=== PATIENT | male | born 1960 | race Caucasian/White ===

== ENCOUNTER 2022-10-29 15:08 | Outpatient (OUT) | payer OTHER, SELFPAY ==
[2022-10-29 16:11] LABS: Anion Gap 10.8; BUN Creatinine Ratio 10.9; Calcium 8.9 mg/dL (8.5-10.1); Carbon Dioxide 29.8 mmol/L (21.0-32.0); Chloride 103 mmol/L (98-107); Estimated GFR (African America >60 (>=60); Estimated GFR (Non-African Ame >60 (>=60); Glucose 100 mg/dL (74-106); Potassium 3.6 mmol/L (3.5-5.1); Sodium 140 mmol/L (136-145)
== END 2022-10-29 15:09 | disposition home or self-care (01) ==
PROVIDERS: PCP Internal Medicine; Visit Provider Nurse Practitioner
DX: I50.23 Acute on chronic systolic (congestive) heart failure (principal)
CPT/HCPCS: 36415; 80048

== ENCOUNTER 2022-11-21 13:51 | Outpatient (OUT) | payer OTHER, SELFPAY ==
--- NOTE | 2022-11-21 14:29 | CA_ITS ---
Patient: DOMO PIÑA Exam Date: 11/21/2022 : 1960 Gender:M Ordering : YAEL OSORIO Admission #: [id number] Family : Order #: [id number] CLICK HERE TO VIEW EXAM ECHOCARDIOGRAM REPORT PROCEDURE: CA ECHO DOPPLER COMPLETE INDICATIONS: I50.23 COMPARISON: None. DESCRIPTION: COMPLETE ECHOCARDIOGRAM Real-time transthoracic echocardiography with 2D, M-mode, spectral and color flow Doppler performed. QUALITY: Technical quality was good. LEFT VENTRICLE: Normal chamber size. Normal left ventricular wall thickness. There is global hypokinesis. Systolic function is mildly to moderately reduced. LV EF: Mildly to moderately reduced left ventricular ejection fraction, (40%). DIASTOLIC: Grade I diastolic dysfunction. ATRIAL SEPTUM: Visually appears intact. LEFT ATRIUM: Normal chamber size. RIGHT ATRIUM: Normal chamber size. RIGHT VENTRICLE: Normal chamber size. Normal right ventricular systolic function. TRICUSPID VALVE: Normal mobility and thickness. No stenosis with trivial regurgitation. Unable to assess right-sided pressures due to lack of measurable tricuspid regurgitation. MITRAL VALVE: Normal mobility and thickness. No evidence of mitral valve stenosis. There is no mitral annular calcification. Mild mitral regurgitation. AORTIC VALVE: Normal trileaflet appearance. Thickened aortic valve. Normal leaflet mobility. No evidence of aortic valve stenosis. No aortic regurgitation. AORTIC ROOT: Normal diameter and appearance. PULMONIC VALVE: Normal thickness and mobility. No stenosis. No regurgitation. PERICARDIUM: No evidence of pericardial effusion. IVC: Collapses with inspirations. PLEURA: CONCLUSION: 1. Left ventricular systolic function is mildly to moderately reduced with global hypokinesis. LVEF is 40%. 2. Mild diastolic dysfunction. 3. Normal right ventricular size and systolic function. 4. Mild mitral regurgitation. 5. No pericardial effusion. 6. Unable to assess right-sided pressures due to lack of measurable tricuspid regurgitation. Adult Echocardiography Procedure Report Left Ventricle LVEDD (3.7 - 5.6 cm): 4.43 cm LVESD (2.2 - 4.0 cm): 3.61 cm LVIVS thickness (0.6 - 1.2 cm): 0.92 cm LVPW thickness (0.5 - 1.0 cm): 0.84 cm e': 0.09 m/s E - e': 4.85 LVOT Max Gradient: 2.20 mm[Hg] LVOT Area (cm2): 0.74 m/s Peak Velocity (LVOT): 0.74 m/s LVOT Diameter 2.22 cm Left Atrium LA Volume Index (2D A2C): 21.74 ml/m2 Left Atrium Systolic Dimension: 2.61 cm Mitral Valve MV E to A Ratio: 0.63 Mitral Valve A-Wave Peak Velocity: 0.69 m/s Mitral Valve E-Wave Peak Velocity: 0.44 m/s Right Ventricle Aorta AO Root Diam: 3.15 cm Ascending Ao Diam: 2.74 cm Aortic Valve AoV Area (Peak Ildefonso): 2.32 cm2, 2.32 cm2 Peak Velocity(Antegrade Flow): 1.24 m/s Peak Gradient(Antegrade Flow): 6.15 mm[Hg] Mean Velocity(Antegrade Flow): 0.89 m/s Mean Gradient(Antegrade Flow): 3.58 mm[Hg] Velocity Time Integral: 23.67 cm Tricuspid Valve Pulmonic Valve Peak Velocity: 0.77 m/s Peak Gradient: 2.39 mm[Hg] Right Atrium Right Atrium Systolic Pressure: 20.95 ml, 20.95 ml Dictated by: Tomasz Watkins M.D. on 11/21/2022 at 18:42 Approved by: Tomasz Watkins M.D. on 11/21/2022 at 18:45
== END 2022-11-21 13:52 | disposition home or self-care (01) ==
LOC: CARD 13:51
PROVIDERS: PCP Internal Medicine; Visit Provider Internal Medicine Cardiovascular Disease
DX: I50.23 Acute on chronic systolic (congestive) heart failure (principal); I34.0 Nonrheumatic mitral (valve) insufficiency
CPT/HCPCS: 93306

== ENCOUNTER 2023-03-02 14:41 | Outpatient (OUT) | payer OTHER, SELFPAY ==
[2023-03-02 15:42] LABS: Anion Gap 10.8; BUN Creatinine Ratio 19.8; Calcium 9.1 mg/dL (8.5-10.1); Carbon Dioxide 29.3 mmol/L (21.0-32.0); Chloride 103 mmol/L (98-107); Estimated GFR (African America >60 (>=60); Estimated GFR (Non-African Ame >60 (>=60); Glucose 113 mg/dL (74-106); Potassium 4.1 mmol/L (3.5-5.1); Sodium 139 mmol/L (136-145)
== END 2023-03-02 14:42 | disposition home or self-care (01) ==
LOC: LAB 14:42
PROVIDERS: PCP Internal Medicine; Visit Provider Internal Medicine Cardiovascular Disease
DX: I50.22 Chronic systolic (congestive) heart failure (principal)
CPT/HCPCS: 36415; 80048

== ENCOUNTER 2023-08-11 13:57 | Outpatient (OUT) | payer OTHER, SELFPAY ==
--- OUTSIDE RECORDS SUMMARY | 2023-08-11 14:06 | XMS_ITS | CCD ---
Author Organization [facility] Care Team Providers Care Sales And Production Manager Name Role Phone VIJAY MCKEON Primary Care Physician [phone] Vijay Mckeon Unavailable Sonny Pate Unavailable DR IVJAY MCKEON Primary Care Unavailable ALGHOYAEL HOLLINS Admitting Unavailable ALGHOTHMICHELLE, YAEL Attending Unavailable ALGHOTHMICHELLE, YAEL Consulting Unavailable MIKE, DR BARRERA Primary Care Unavailable BALL, DR BARRERA Admitting Unavailable BALL, DR BARRERA Attending Unavailable BALL, DR BARRERA Consulting Unavailable BALL, DR BARRERA Primary Care Unavailable BALL, DR BARRERA Admitting Unavailable BALL, DR BARRERA Attending Unavailable BALL, DR BARRERA Consulting Unavailable WEST, DR ISABELLE Mendoza Consulting Unavailable BALL, DR BARRERA Consulting Unavailable BALL, DR BARRERA Primary Care Unavailable BALL, DR BARRERA Admitting Unavailable BALL, DR BARRERA Attending Unavailable NILL, Bill Hua Attending Unavailable NILL, Bill Hua Referring Unavailable NILL, Bill Hua Admitting Unavailable NILL, Bill Hua Referring Unavailable NILL, Bill Hua Admitting Unavailable NILL, Bill Hua Attending Unavailable GINODEBORAH ORTEGA Attending Unavailable ALGHOTHANI, YAEL Attending Unavailable ALGHOTHANI, YAEL Attending Unavailable ALGHOTHANI, YAEL Attending Unavailable Allergies Allergy Classification Reported Allergen(s) Allergy Type Date of Onset Reaction(s) Facility (1 source) No Known Medication Allergies; Translations: [No Known Medication Allergies] Propensity to adverse reactions (disorder) [facility] Repository (1 source) patient allergy list reviewed by nurse or physicia Propensity to adverse reactions 9 Comment:Done devsisters Other (1 source) Lisinopril; Translations: [LISINOPRIL] Drug Allergy 3 [facility] Repository Medications Current Medications Medication Drug Class(es) Dates Sig (Normalized) Sig (Original) aspirin 81 mg delayed release oral tablet (9 sources) Platelet Aggregation Inhibitor, Nonsteroidal Anti-inflammatory Drug Start: 03-30-2022 Aspirin 81 81 MG 1 Orally Once a day Mar, Active atorvastatin 40 mg oral tablet (11 sources) HMG-CoA Reductase Inhibitor Start: 04-18-2022 take 1 tablet by mouth once daily atorvastatin 40 mg Tab 40 mg = 1 tab(s), Oral, Daily, # 30 tab(s), Refills(s) 0, High cholesterol Start Date: 04/18/22 Status: Ordered Atorvastatin Abdi cium 10 MG 1 Orally Once a day Active azithromycin 250 mg oral tablet (1 source) Macrolide Antimicrobial Start: 04-10-2023 Azithromycin 250 MG as directed Orally daily for 5 days Mar, Active carvedilol 3.125 mg oral tablet (2 sources) alpha-Adrenergic Jeff, beta-Adrenergic Jeff Start: 04-18-2022 take 1 tablet by mouth twice daily carvedilol 3.125 mg Tab 3.125 mg = 1 tab(s), Oral, BID, # 60 tab(s), Refills(s) 0, High blood pressure Start Date: 04/18/22 Status: Ordered ipratropium bromide 0.042 mg/actuat metered dose nasal spray (1 source) Anticholinergic Ipratropium Brave 0.06 % instill 2 (TWO) sprays IN EACH NOSTRIL TWICE DAILY - THREE TIMES DAILY for 30 Active loratadine 10 mg oral tablet (3 sources) Start: 03-25-2022 take 1 tablet by mouth once daily loratadine 10 mg Tab 10 mg = 1 tab(s), Oral, Daily, Refills(s) 0, Allergy symptoms Start Date: 03/25/22 Status: Ordered 24 hr metoprolol succinate 25 mg extended release oral tablet (9 sources) beta-Adrenergic Jeff Start: 04-10-2022 take 1 tablet by mouth every twenty-four hours Metoprolol Succinate ER 25 MG 1 tablet Orally Once a day for 30 day(s) Mar, Active Completed/Discontinued Medications Medication Drug Class(es) Dates Sig (Normalized) Sig (Original) cefTRIAXone (9 sources) Cephalosporin Antibacterial Start: 07-29-2017 Rocephin 500 mg July, 1000 mg Problems Active Problems Problem Classification Problem Date Documented Da te Episodic/Chronic Acute bronchitis (2 sources) Acute bronchitis; Translations: [Acute bronchitis due to other specified organisms] Episodic Congestive heart failure; nonhypertensive (14 sources) Unspecified systolic (congestive) heart failure; Translations: [Heart failure, unspecified] Onset: 04-10-2022 Chronic Coronary atherosclerosis and other heart disease (10 sources) Coronary arteriosclerosis; Translations: [Atherosclerotic heart disease of [place] coronary artery without angina pectoris] Chronic Diabetes mellitus without complication (4 sources) Impaired fasting glycemia; Translations: [Impaired fasting glucose] 03-19-2022 Episodic Disorders of lipid metabolism (10 sources) Hypercholesterolemia; Translations: [Pure hypercholesterolemia, unspecified] Chronic Diverticulosis and diverticulitis (1 source) Diverticula of intestine; Translations: [Diverticulosis of large intestine without perforation or abscess without bleeding] Onset: 04-18-2022 Chronic Essential hypertension (2 sources) Essential (primary) hypertension; Translations: [Essential (primary) hypertension] Onset: 05-29-2023 Chronic Heart valve disorders (1 source) Nonrheumatic mitral (valve) insufficiency; Translations: [NONRHEUMATIC MITRAL INSUFFICIENCY] Onset: 04-12-2022 Chronic Osteoarthritis (1 source) Localized, primary osteoarthritis of the shoulder region; Translations: [Primary osteoarthritis, unspecified shoulder] Onset: 06-04-2018 Chronic Other gastrointestinal disorders (2 sources) Abnormal feces; Translations: [Other fecal abnormalities] Onset: 03-25-2022 Episodic Other upper respiratory disease (4 sources) Vasomotor rhinitis; Translations: [Vasomotor rhinitis] 03-19-2022 Chronic Peripheral and visceral atherosclerosis (2 sources) Atherosclerosis of other arteries; Translations: [Atherosclerosis of other arteries] Onset: 03-04-2023 Chronic Residual codes; unclassified (1 source) Family history of ischemic heart disease and other diseases of the circulatory system Episodic Retinal detachments; defects; vascular occlusion; and retinopathy (20 sources) Branch retinal vein occlusion with macular edema; Translations: [Tributary (branch) retinal vein occlusion, left eye, with macular edema] Onset: 04-07-2022 Chronic Substance-related disorders (14 sources) Nicotine dependence; Translations: [Nicotine dependence, cigarettes, uncomplicated] 03-19-2022 Chronic Viral infection (1 source) Disease caused by 2019-nCoV; Translations: [COVID-19] Past or Other Problems Problem Classification Problem Date Documented Da te Episodic/Chronic Bacterial infection; unspecified site (1 source) Bacterial infectious disease; Translations: [Bacterial infection, unspecified, in conditions classified elsewhere and of unspecified site] Onset: 04-24-2017 Episodic Cardiac dysrhythmias (12 sources) Sinus tachycardia; Translations: [Tachycardia, unspecified] Onset: 03-04-2023 Episodic Other screening for suspected conditions (not mental disorders or infectious disease) (4 sources) Stool DNA-based colorectal cancer screening positive; Translations: [Encounter for screening for malignant neoplasm of prostate] Onset: 02-04-2022 03-19-2022 Episodic Other upper respiratory infections (1 source) Acute maxillary sinusitis; Translations: [Acute maxillary sinusitis, unspecified] Onset: 04-24-2017 Episodic Residual codes; unclassified (2 sources) Tobacco user; Translations: [Nondependent tobacco use disorder] Onset: 02-06-2015 Episodic Unclassified (1 source) Exposure to 2019 novel coronavirus; Translations: [Contact with and (suspected) exposure to COVID19] Results Test Name Value Interpretation Reference Range Facility Office Visiton 05-29-2023 Follow-up visit [id number] Domo Piña 1960 M Date Provider Department Center 05/29/2023 Antoine8-YAEL ANDERSON SHOAIB Metcalf Family History Problem Relation Age of Onset Heart attack Father Coronary artery disease Father Other Father Family Status - Relation Status Age at Father Level of Service:20606 MT OFFICE/OUTPATIENT ESTABLISHED LOW MDM 20 MIN Normal [facility] Provider Letteron 03-27-2023 Provider Letter March 27, 2023 [place] [address] : 1960 Dear Domo, We have been trying to reach you with no success. It is important that you return our call regarding need for colonoscopy upon receiving this letter. Also, at the time of your call, please provide us with your current information. Thank you for your prompt attention to this matter. Sincerely, Dr. Bill Courtney MD General Surgery [facility] Provider Letter March 27, 2023 DOM[place] [place] [address] : 1960 Dear Domo, We have been trying to reach you with no success. It is important that you return our call upon receiving this letter. Also, at the time of your call, please provide us with your current information. Thank you for your prompt attention to this matter. Sincerely, Dr. Bill Courtney MD General Surgery [facility] Reminderson 03-27-2023 Reminders - From: Daisy Gutierrez LPN To: [facility] - Clinical; Sent: 04/21/2022 08:22:58 EST Show up: 03/18/2023 07:00:00 EST Subject: colonoscopy recall Due Date/Time: 04/18/2023 07:00:00 EST Reminder/Recall Patient is due for colonoscopy 04/18/2023 due to incomplete colonoscopy completed 04/18/2022 due to sharp bend of colon. Mailbox is full. Will call again at later time. Mailbox is full. Will call again at later time. Letter mailed. [facility] Office Visiton 03-04-2023 Follow-up visit [id number] Domo Piña 1960 M Date Provider Department Center 03/04/2023 166-DEBORAH CHRISTIAN Family History Problem Relation Age of Onset Heart attack Father Coronary artery disease Father Other Father Family Status - Relation Status Age at Father Level of Service:41073 MT OFFICE/OUTPATIENT ESTABLISHED MOD MDM 30-39 MIN Reason for Visit and Comments: Congestive Heart Failure [127] Normal [facility] Office Visiton 02-02-2023 Follow-up visit [id number] oDmo Piña 1960 M Date Provider Department Center 02/02/2023 3848-YAEL ANDERSON Family History Problem Relation Age of Onset Heart attack Father Coronary artery disease Father Other Father Family Status - Relation Status Age at Father Level of Service:48480 MT OFFICE/OUTPATIENT ESTABLISHED MOD MDM 30-39 MIN Normal [facility] Office Visiton 10-31-2022 Follow-up visit [id number] Domo Piña 1960 Date Provider Department Center 10/31/2022 3848-YAEL ANDERSON [facility]ARD [facility] Family History Problem Relation Age of Onset Heart attack Father Coronary artery disease Father Other Father Family Status - Relation Status Age at Father Level of Service:45432 MT OFFICE/OUTPATIENT ESTABLISHED LOW MDM 20-29 MIN Normal [facility] Orders Onlyon 10-31-2022 Orders Only [id number] Domo Piña Sabina 1960 M Date Provider Department Center 10/31/2022 Karina-LONNIE [place] [facility]ARD [facility] Family History Problem Relation Age of Onset Heart attack Father Coronary artery disease Father Other Father Family Status - Relation Status Age at Father Normal [facility] Orders Onlyon 07-22-2022 Orders Only [id number] Domo Piña Sabina 1960 Date Provider Department Center 07/22/2022 Alfred-ROMELIA LING [facility] CARD [facility]. Family History Problem Relation Age of Onset Heart attack Father Coronary artery disease Father Other Father Family Status - Relation Status Age at Father Normal [facility] Postoperative Documentson Postoperative Documents [id number]. 00CD:127 Normal [facility] IntraOperative Documentson 0 04-23-2022 IntraOperative Documents [id number]. 00CD:127 Normal [facility] CBC AUTO DIFFon 04-22-2022 BASO # 0.1 103/ul Normal 0.0-0.1 [facility] Comment on above: Performed By: #### C BC #### [facility] [address] [place] [address] Dr. Luisana Ramachandran Basophils/100 WBC (Bld) 1.0 % Normal 0.2-2.0 [facility] Comment on above: Performed By: #### C BC #### [facility] [address] [place] [address] Dr. Luisana Ramachandran EO # 0.3 103/ul Normal 0.0-0.7 [facility] Comment on above: Performed By: #### C BC #### [facility] [address] [place] [address] Dr. Luisana Ramachandran Eosinophils/100 WBC (Bld) 3.0 % Normal 0.9-7.0 [facility] Comment on above: Performed By: #### C BC #### [facility] [address] [place] [address] Dr. Luisana Ramachandran Erythrocyte distribution width (RBC) [Ratio] 13.1 % Normal 11.0-15.0 [facility] Comment on above: Performed By: #### C BC #### [facility] [address] [place] [address] Dr. Luisana Ramachandran Hematocrit (Bld) [Volume fraction] 43.7 % Normal 42.0-54.0 [facility] Comment on above: Performed By: #### C BC #### [facility] [address] [place] [address] Dr. Luisana Ramachandran Hemoglobin (Bld) [Mass/Vol] 14.5 g/dL Normal 14.0-18.0 [facility] Comment on above: Performed By: #### C BC #### [facility] [address] [place] [address] Dr. Luisana Ramachandran IG # 0.02 10e3/ul Normal 0.00-0.03 [facility] Comment on above: Performed By: #### C BC #### [facility] [address] [place] [address] Dr. Luisana Ramachandran IG % 0.2 % Normal 0.0-0.5 [facility] Comment on above: Performed By: #### C BC #### [facility] [address] [place] [address] Dr. Luisana Ramachandran LYMPH # 2.9 103/ul Normal 1.2-3.8 [facility] Comment on above: Performed By: #### C BC #### [facility] [address] [place] [address] Dr. Luisana Ramachandran Lymphocytes/100 WBC (Bld) 29.8 % Normal 20.5-60.0 [facility] Comment on above: Performed By: #### C BC #### [facility] [address] [place] [address] Dr. Luisana Ramachandran MANUAL DIFF REQ NO Normal [facility] Comment on above: Performed By: #### C BC #### [facility] [address] [place] [address] Dr. Luisana Ramachandran MCH (RBC) [Entitic mass] 29.6 pg Normal 25.9-34.0 [facility] Comment on above: Performed By: #### C BC #### [facility] [address] [place] [address] Dr. Luisana Ramachandran MCHC (RBC) [Mass/Vol] 33.2 g/dL Normal 29.9-35.2 [facility] Comment on above: Performed By: #### C BC #### [facility] [address] [place] [address] Dr. Luisana Ramachandran MCV (RBC) [Entitic vol] 89.2 fL Normal 80.0-94.0 [facility] Comment on above: Performed By: #### C BC #### [facility] [address] [place] [address] Dr. Luisana Ramachandran MONO # 1.1 103/ul Critically high 0.3-0.8 [facility] Comment on above: Performed By: #### C BC #### [facility] [address] [place] [address] Dr. Luisana Ramachandran Monocytes/100 WBC (Bld) 10.9 % Normal 1.7-12.0 [facility] Comment on above: Performed By: #### C BC #### [facility] [address] [place] [address] Dr. Luisana Ramachandran NEUT # 5.4 103/ul Normal 1.4-6.5 [facility] Comment on above: Performed By: #### C BC #### [facility] [address] [place] [address] Dr. Luisana Ramachandran Neutrophils/100 WBC (Bld) 55.1 % Normal 43.0-75.0 [facility] Comment on above: Performed By: #### C BC #### [facility] [address] [address] [address] Luisana Ramachandran Platelet mean volume (Bld) [Entitic vol] 10.8 fL Normal 9.5-13.5 [facility] Comment on above: Performed By: #### C BC #### [facility] [address] [place] [address] Dr. Luisana Ramachandran PLT 240 103/ul Normal 150-450 [facility] Comment on above: Performed By: #### C BC #### [facility] [address] [place] [address] Dr. Luisana Rmaachandran RBC 4.90 106/ul Normal 4.70-6.10 [facility] Comment on above: Performed By: #### C BC #### [facility] [address] [place] [address] Dr. Luisana Ramachandran WBC 9.8 103/ul Normal 4.0-11.0 [facility] Comment on above: Performed By: #### C BC #### [facility] [address] [place] [address] Dr. Luisana Ramachandran PROF CHEM 8 (BAS METB)on Anion gap [Moles/Vol] 11.1 mmol/L Normal [facility] Comment on above: Performed By: #### B MP #### [facility] [address] [place] [address] Dr. Luisana Ramachandran Calcium [Mass/Vol] 9.3 mg/dL Normal 8.5-10.1 [facility] Comment on above: Performed By: #### B MP #### [facility] [address] [place] [address] Dr. Luisana Ramachandran Chloride [Moles/Vol] 100 mmol/L Normal 98-107 [facility] Comment on above: Performed By: #### B MP #### [facility] [address] [place] [address] Dr. Luisana Ramachandran CO2 [Moles/Vol] 31.9 mmol/L Normal 21.0-32.0 [facility] Comment on above: Performed By: #### B MP #### [facility] [address] [place] [address] Dr. Luisana Ramachandran Creatinine [Mass/Vol] 0.80 mg/dL Normal 0.70-1.30 [facility] Comment on above: Performed By: #### B MP #### [facility] [address] [address] [address] Luisana Ramachandran EGFR-AF GREEK >60 Normal >=60 [facility] Comment on above: Performed By: #### B MP #### [facility] [address] [address] [address] Luisana Ramachandran EGFR-NON AF GREEK >60 Normal >=60 [facility] Comment on above: Performed By: #### B MP #### [facility] [address] [address] [address] Luisana Ramachandran Glucose [Mass/Vol] 106 mg/dL Normal 74-106 [facility] Comment on above: Performed By: #### B MP #### [facility] [address] [place] [address] Dr. Luisana Ramachandran Potassium [Moles/Vol] 4.0 mmol/L Normal 3.5-5.1 [facility] Comment on above: Performed By: #### B MP #### [facility] [address] [place] [address] Dr. Luisana Ramachandran Sodium [Moles/Vol] 139 mmol/L Normal 136-145 [facility] Comment on above: Performed By: #### B MP #### [facility] [address] [address] [address] Luisana Ramachandran Urea nitrogen [Mass/Vol] 11.0 mg/dL Normal 7.0-18.0 [facility] Comment on above: Performed By: #### B MP #### [facility] [address] [place] [address] Dr. Luisana Ramachandran Urea nitrogen/Creatinine [Mass ratio] 13.8 mg/mg Normal [facility] Comment on above: Performed By: #### B MP #### [facility] [address] [place] [address] Dr. Luisana Ramachandran Coding Summary.on 04-21-2022 Coding Summary. CD:[id number] Gh 0bWw+PGhlYWQ+YT2IMKQqI 31ubRVmgV7ZB5sGXU3LWLZ OKDVOVM6YBW2exZJ2FMrjJ 2VybiAv EgmojSCsKC08JRz5TWY7nR mlXYdupZ4odFWlS5v6GlUu DY41vS53HIiiKMHyPdV1Xx ZpbjsgbWFy V2hmElOovEZgDtq+PHRhYm xlIHdpZHRoPScxMDAlJyBz lUjyOL4nRs4uTEDgXXZnsI xhcHNlOiBj v9txGBXzLBchPZ4saUcaP8 GnaGS1IIByl5c6Fh85hHA+ KUCgPNM9pIcoOQxtq502Cy Vps6ciBTX5 jMOkDTqaIQX8X73gd3F3VH DeENYsEEO0zZX8yY3dwHmb wgnnR3OjyKGhCaQ3IIR1tB VakM7ytJhi azbfbA1bZta+W81IHP8IYI SIJH9GDxz4Z6FaYkmepCN+ FG59SUYqZF37jMAcqXYqm2 mypHn3VjTb RBBmLNA5jUogDZdae0GxUZ QsG01jyVXgh9H5VGZcmSyt sITzBmCsiIE5dU6hURiefi frj9bmhwxv Qyrni8tpov97nI28A25hMI jjTBWcXCN2RLTkDJSixKhz po4uwZ0oLk5+GWeut0iyn2 zjoFo6FuPp JIGmxxNggPxqNKC8v9SpPx 43I8HhaRnuf5ZuDex6vc20 pFQso2I9jKG7TXozSQBwwM 3nFGcjSzY3 HPGkUxHurF36tESbTMkhRf 5mqOkunQaqIT9zNSCjtuwo AYJztA3iWXSpzKMtxPqzPT 4wNTBpbjtm i354GbTqYLZ3BRQtfKZpO3 OnbN1fJqNwAWRpMLUeR7Cg gTWxGLeaZ609XOntHcR1OX YkhbNbY9Qz NQKksDdcAfO5z1S7Kw2Zr3 YxciyqPMM1WCbxUWIgHfMp NeKsLzP6B6VtCiq8QCWqeM opML3mN5Fy YQTuryiyttblqUA0MWLeYD ZodB95uFNvWAgxBz3om8P2 q599SYQoOAIkyN10Fu6miL ogMTBwdCBU dS8fxhvqj5hpndkgSyJrPB WtPCy5OWa8AQIarShpOeWt BDI6OwY1SOC9bKIguJ0geH rlvjejwO5h Oyc+D45riG1zDRC1PPB2gj dcJRMdhmRtYP00HG66F2Fq PjwvdGFibGU+PGRpdiBzdH hqFM0tAyVh b5uai1XdAMlwB8BbQLLjIY exGnw6PFQkKBR0dER9gM0t NMWyOKlyn8P2mIK5K4Vkyr Xndo4lg6dg EZDoBNpyF76daAQry2N1UC HyvVC0QIHavAjqRsZcuV94 Oyc+UNOwlKmja3XwCdsje4 nsb7pqsTt5 VfGoUJMjnsBoqXrwJXV6v5 VxFl43L61tFWvjPIDcGTKb RLHcKCKyfZccnt1ldG4iAa 8+PGNvbCB3 iKA0lK9pHLXdCvK6IEmzX0 78DsAsrQOvIhtfr1cgg0jn iGu6XmBjLKClozIvbMshZT H5n6TjRg98 W45zFIbcPBPkTCKsVGUwHM VugFoxsy0weT4mYo4+PC9j e9mgej06oF04rIA+PHRkIH T2gRpiZDcy IHJdkW6nGCovWpS4OZRlDy PzbK49dMPgDYrsNz4lwSpz fIvuUB3pUIOgekuez330Jo Nbn4jdTTDl zCMtIBgoXAK3S88xu4I1CI RnONYtVHI1kPG9nK7bhXmp bjogbGVmdDsgdmVydGljYW wcRLicI920 IHRvcDsnPlBhdGllbnQgTm NmIEz9F4EgBew5JSNacMlk DO7fdTUaLGqpNv5piUqooB orPS6yUGIl egkit530MgLtj3fdISWkvD XuAPxtBRQ8W04tz6B9IYTi IWRyLVW5iZE5zO4zzQftnn ogbGVmdDsg lvHxyCycLOhiCBgmG975KM RvcDsnPkJpcnRoIERhdGU6 LO65YK66eIQqa7D1oYH8J5 BhZGRpbmct zpasdAX2XSBiLSTeqH01Zr 4qxLkdNi4mGQCfGPM3TMQa rJNuO1CcrH0zXfXiIOSeFT JkP3BfuCXi OVhwE383UQdgCmB5OBKymt HqY7PeJBOakWueSyP9f6J7 Ec4NM6Q3TU74AY79mMBcw8 Y4rLX2H9Bd OCDppmtmqttghFH0CAJwHZ RnoS21Gx4kzQlpTp3aSYXq HIR3CBFdiUOkV3OpkR7kCj AjMDAwMDAw I1ByjBFgNUdnF437YTekWd X6JPCbblHaN1SbWHSniOgm RwT0n4I4Fo8XNRn6MU50HE 21eWYdm1D1 cIN6L9TdSDPgoeherbhjrA X6XTBmASSboF43Se3rpIif Et7lVHDbKBK4MXEeiDMbL9 SycQ5nBjFe HNScILBqQ7XtpNQaWAwcN7 77IXcwKzL5VXGhblKyG0Tx KZUmuTsyMvZ1n6T9Pw3WIZ IbGM76GMS0 jVV4HP68ZW64Q3BaQdqouO FibGU+PHRhYmxlIHdpZHRo SLnrJSLmMfXitPwrZN1xFs 9yZGVyLWNv pPqnmGUcIgDcj7huBCBsXE jeQJ8dkFwmH6FrvVH5ETEd w3d5Pi66Y89vJ4SosYY+PG BaxTZ4tBO5 aU6dTwWtGxK8GMpvW807Dz XxaABaNzlhg5mha7ocoAu7 WtD7GWKhflAvkSbrFFK1d6 ZfDu76P92p IHdpZHRoPSIxNSUiIHZhbG dfdz0jpX9yJr0+PGNvbCB3 qCI2tC4aXcVkVwA3VPgpF0 49InRvcCIv Ltpqr5ctd1cbiMp7TrTwTZ UvyoDrgTmoIPL8w4EdJw92 C4YdzWbwc7GhVgo9wa04yV Yzi2E2vMA6 U8LzFPRrpcjwhZPecPtrSN 8hJXHnbuuwRTJqdC9lLQOx V4w4ZrByVjT4YVdqY1Kxis C4GUOffBZh TQuxLGS4B90km6J7MHUxPY IpIUG1jSI3xK8udKeofqie bGVmdDsgdmVydGljYWwtYW dwN510YWSc tXduMFEfrN0tNKGlsLWpbA joYN9uQFJqarzeQiTPFGHZ TwALGkbqHq4MEULUKFk3E9 EkNxp3TWWu bUitLV0rsSHzRAngJc9hvY qwyModVJ1jZTFglpygYIUc vD3aVPFaoDLxiUeqPC3gFX Nzgyefl523 PwFlMFL8IBQeoSPgA4EdzS 1xTcExBDNmWKTtT2CanQDs FBvgJ355FKryFtY1EQVaaq ZkI5KdUTYt nSyxBtI5t0S9Xn7hVV3cMI 6cKXRjJE48BV31zVVmp5Q3 pIB9W9ZyJRFgojqrqbeabV D8FUNtZUPb qP26sBBbDBfnCt0gr2C4e3 52XXGtTOSsrG67Bx4kvNdz JQIbfATMuO2sunjiy4rqkm ogIzAwMDAw RPf0MXm3OYVaeYjdKpXyME G1TnF6ZJE1sTNwwM1kxVkc woupuD9xFkx+NjMgWWVhcn R6N3ZpUnd0 CQQrcEuvBH9pqKHiDXpyOw 0ryWgowEbmYM3bJAPhrmfe IGVlmV8wNQAqrDZvvGwlLX 4wNTBpbjtm w151WuGzPEY9NKOnwTCbL4 RofO2vGmRdOBPyTPUlH6Qu nYQkCTjdV837THcbWpE0IR OboaIxR0Qa RLHpxCaiEjQ7j0T9Hk6NOQ yrVK15FX38aMWmw3N7hPJ2 P6WbEXVkbmelzcbajNX8OD TaOGMeuR60 tWGpXZkqMc0qf3P1n049MA JgYMKavY28Wl9vjUxyESJa iTPUiC4mdzhfm2mulmmtXv AwMDAwMDt0 PSr4SBLmcCcePjDoTFG9Qk R4KIR0aIXpkL4hjDttlgwf tZ6oCeh+O3L6kVZ7sNGowM wvdGQ+PC90 hh45K9JiEtarVuk6IAStVV K8oIM0zI1lGZHlZQlqj7E2 nJU3Q8CovbYxtw4rj3puWW OcQZjcO74y xYFty7D9IOUpnFV5ZXLceU jrFbYntU29Mbe+PGNvbGdy d4MlHnwis9ljj0floXb1Mr MwJSIgdmFs wMxjYZM2z9BfYw43N60aJQ dpZHRoPSIzMCUiIHZhbGln cp1exU5hIk9+MVTvyDI7iQ H0nY1xFxVp HpR1QJrrV040HiPprYIjZl pkn0cxe1hboJn6SxIaLLAq mrVkhNvdZXA2h8QbRo85U1 NkiTjoy0Wx Mbr9yr51tUBiw9C3oPY2K7 ZjHFTnazhlaWDnlDbsAP0h OKExlleoUAOgfC8kAHLmH3 s7ArCgZmF1 UFjbL3IoaiU2IXHhsEOuJT GdqJGKjB6fvyror3ihtxjb WkCpEBHkATo9KZc8BFPwvI duOiBsZWZ0 QaN2RXW6kPXfxH6qqEdzbg ryzV2zHxr+BQp9d0hkeZEk FK1skBV3OJ01QE06xHRbd7 X1iCR0Z6Ft QTKcrkztjhmqmTQ8PIVfDD InmG56Za6azDkdLx6eIKDz FOL4EMShjMYuG9LzqD5aAb AjMDAwMDAw O4ZspVIyPZdvQ748KVclIg D0RYVxviCeS7FbXAQpoSok PeG1v7W9Pq9JJS20PM04YJ 55oIFhg7E8 rNE0N1QkVBGiwvhphujqeB X9ASGyXYDplO92By3zbZzt Ao5lLJByVON1GBTidWPmW0 HtjZ1ySlMo PSGhEJUnK5JqvMWiNGhnN8 92GOvzHeB5OVEgitUaY4Ak SQJgyBfzViP6q7C1Jt8FGn 37JA11YW22 gLHxb3F4gHM3Z9GiDQWfut snskzieMY3EYHcMHZxvJ76 Rr5bsAneZo8qWACvQXS6TZ PdjMBvV7Em vU4hOjSbZFTzQQAbJ7XdlW VlXVfmR765XMcpVzF5OATb vxJzG0ZkOXLzuXdpVsI1i5 A2Nt3EDGek nzj4B5JvEklghTO+PC90YW JnEN51lMJqeCBpt8nbhYe9 CpRwLRVgACA5oCigLHlnd1 EzLPSlU64r bGFw (more content not included)... Normal [facility] Consenton 04-21-2022 Consent [id number]#1. 00CD:[address] [facility] Discharge Instructionson Discharge Instructions [id number]#1. 00CD:[address] [facility] IntraOperative Documentson 0 04-21-2022 IntraOperative Documents [id number]#1. 00CD:[address] [facility] Main OR PACU I Recordon 03-25 Main OR PACU I Record PACU Phase I Document Type FT Summary Primary Physician: Bill COURTNEY MD Finalized Date/Time: 04/21/22 14:44:59 Pt. Name: DOMO PIÑA/Sex: 1960 Male Med Rec #: [id number] Physician: Bill COURTNEY MD Financial #: [id number] Pt. Type: O Room/Bed: / Admit/Disch: 04/18/22 06:51:37 - 04/18/22 23:59:59 Institution: Case Times PACU I FT Pre-Care Text: Identifies barriers to communication and implements measures to provide psychological support Develops individualized plan of care, and ensures continuity of care Maintains patient's dignity and privacy, and maintains patient confidentiality Identifies and reports philosophical, cultural, and spiritual beliefs and values Identifies individual values and wishes concerning care Implements aseptic technique, and administers prescribed antibiotic therapy and immunizing agents as ordered Evaluates postoperative tissue perfusion Implements thermoregulation measures, and monitors body temperature Evaluates postoperative respiratory status Evaluates postoperative cardiac status Evaluates postoperative neurological status Assesses pain control, collaborated in initiating patient-controlled analgesia and implements alternative methods of pain control Verifies allergies, administers prescribed medications and solutions, evaluates response to medications Entry 1 In PACU I 04/18/22 08:28:00 Discharge from PACU 04/18/22 08:58:00 I Outcomes Met? Yes Last Modified By: Caroline Berumen RN 04/21/22 14:44:56 Post-Care Text: The patient demonstrates knowledge of the expected response to the operative or invasive procedure The patient's care is consistent with the individualized perioperative plan of care The patient's right to privacy is maintained The patient's value system, lifestyle, ethnicity, and culture are considered, respected, and incorporated into the perioperative plan of care The patient participates in decisions affecting his or her perioperative plan of care The patient is free from signs and symptoms of infection The patient has wound/tissue perfusion consistent with or improved from baseline levels established preoperatively The patient is at or returning to normothermia at the conclusion of the immediate postoperative period The patient's respiratory function is consistent with or improved from baseline levels established preoperatively The patient's cardiovascular status is consistent with or improved from baseline levels established preoperatively The patient's cardiovascular status is consistent with or improved from baseline levels established preoperatively The patient demonstrates and/or reports adequate pain control throughout the perioperative period The patient received appropriate medication(s), safely administered during the perioperative period General Comments: 04/21/2022 1444hr Tessie-op doc michel. HOWIE Dunham Acuity Level PACU I FT Entry 1 Start Time 04/18/22 08:28:00 Stop Time 04/18/22 08:58:00 Acuity Level Acuity Level I Last Modified By: Elena Quezada RN 04/18/22 10:37:39 Finalized By: Caroline Berumen RN Document Signatures Signed By: Elena Quezada RN 04/18/22 10:37 Caroline Berumen RN 04/21/22 14:44 Normal [facility] Colonoscopy Procedure Report on 04-18-2022 Colonoscopy Procedure Report Patient: DOMO PIÑA Age: 62 years Sex: Male : 1960 Associated Diagnoses: None Author: Bill COURTNEY MD Pre-Procedure Procedure Date 04/18/2022 08:00:00 . Procedure Type: Colonoscopy. Procedure provider Performed by Bill COURTNEY MD. Referred by VIJAY MCKEON DO. Current history and physical Documented on chart. Colorectal neoplasm risk assessment Average risk. Informed Consent After discussing the rationale, risks and benefits, and alternatives to this procedure, the patient provided signed consent for the procedure. Pre-procedure diagnosis: Diagnostic: positive Cologuard. ASA Classification: Class III. . Monitoring: See anesthesia record. . Procedure The procedure was performed in the hospital. See anesthesia record for sedation given during procedure. Rectal exam was performed and was normal. The patient was positioned starting in the left lateral decubitus position. Endoscope type used was an adult-size. The endoscope was lubricated then introduced through the anus. The scope was advanced to the sigmoid colon verified by palpation. The procedure continued after changing equipment to a pediatric endoscope secondary to tortuous colon, secondary to colonoscope looping. The bowel preparation quality was good and was adequate (see polyps greater than or equal to 6 millimeters). The patient tolerated the procedure well. sharp bend at 40 cm in sigmoid colon; unable to navigate even after multiple position changes, abd pressure and changing to pediatric scope; will obtain barium enema.. Findings Diverticulosis was identified in the sigmoid colon. The diverticulosis is severe. Post-Procedure Complications: none. Estimated blood loss: none. Specimens: none. Devices/ implants: none left in place. Impression and Plan Diagnosis: Diverticulosis of sigmoid colon ([id number] K57.30, Discharge, Medical). Course: Progressing as expected. Recommendations: Repeat colonoscopy:: Will depend on barium enema results . Follow-up:: will call patient with barium enema results. Diet:: Regular diet. Medication resumption:: Continue current medications. Return to activities:: After 24 hours. Education and Follow-up: Counseled: Family. Normal [facility] Consent for Treatmenton 03-24 Consent for Treatment [id number]#1.0 0CD:127 Normal [facility] Inpatient Patient Summaryon 04-18-2022 Inpatient Patient Summary [place] [id number] [facility] Clinical Discharge Instructions PERSON INFORMATION Name: DOMO PIÑA PHYSICIANS Admitting Physician: Bill COURTNEY MD Attending Physician: Bill COURTNEY MD PCP: VIJAY MCKEON DO Discharge Diagnosis: Diverticulosis of sigmoid colon Comment: PATIENT EDUCATION INFORMATION Instructions: Medication Leaflets: Follow up: With: Address: When: Bill COURTNEY [address], [address], [facility] [address] [place] [address] Business (1) Within 7 to 10 days MEDICATION LIST Medications to Continue with No Changes Other Medications atorvastatin (atorvastatin 40 mg Tab) 1 Tablets By Mouth every day. carvedilol (carvedilol 3.125 mg Tab) 1 Tablets By Mouth 2 times a day. loratadine (loratadine 10 mg Tab) 1 Tablets By Mouth every day. Comment: Normal [facility] Main OR Intraoperative Recor don 04-18-2022 Main OR Intraoperative Record IntraOp Document Type FT Summary Primary Physician: Bill COURTNEY MD Finalized Date/Time: 04/18/22 14:14:08 Pt. Name: DOMO PIÑA/Sex: 1960 Male Med Rec #: [id number] Physician: Bill COURTNEY MD Financial #: [id number] Pt. Type: O Room/Bed: / Admit/Disch: 04/18/22 06:51:37 - Institution: Case Times FT Entry 1 Patient Times In Room 04/18/22 07:54:00 Out Room 04/18/22 08:28:00 Procedure Times Start 04/18/22 07:59:00 Stop 04/18/22 08:25:00 Anesthesia Times Start 04/18/22 07:54:00 Stop 04/18/22 08:28:00 Last Modified By: Guero Reina RN 04/18/22 08:31:32 General Comments: 0803 colonoscopy stopped at this time to switch to pediatric colon scope MSRN 0805 Colonoscopy resumed with pediatric colon scope MSRN unable to reach cecum at this time. colonoscopy incomplete. Barium enema ordered by Dr. Roz TALAVERA 04/18/21 Chart opened to review and send charges [facility] Case Attendance FT Entry 1 Entry 2 Entry 3 Case Attendee Glen MCGREGOR, Domo Harrell, Bill Mcgregor MD Role Performed Anesthesiologist of Scrub - Primary Surgeon - Primary Record Time In 04/18/22 07:54:00 04/18/22 07:54:00 04/18/22 07:54:00 Time Out 04/18/22 08:28:00 04/18/22 08:28:00 04/18/22 08:28:00 Procedure COLONOSCOPY(.) COLONOSCOPY(.) COLONOSCOPY(.) Comments Last Modified By: Guero Reina RN, RN, Morgan E Souter RN, Morgan E 04/18/22 08:31:33 04/18/22 08:31:33 04/18/22 08:31:33 Entry 4 Case Attendee Guero Reina RN Role Performed Drilling Field Professional - Primary Time In 04/18/22 07:54:00 Time Out 04/18/22 08:28:00 Procedure COLONOSCOPY(.) Comments Last Modified By: Guero Reina RN 04/18/22 08:31:33 Perioperative Protocols FT Pre-Care Text: Implements protective measures prior to operative or invasive procedure, confirms identity before the operative or invasive procedure, verifies operative procedure, surgical site, and laterality Entry 1 Procedure(s) COLONOSCOPY(.) Patient Identity Birthday, ID Band Verified (select at Check, Patient least 2): Participation Consents / H and P Anesthesia Consent, Operative Site N/A Verified HandP, Surgery/Procedure Marking Verified Consent Surgical Site No Laterality Verified n/a Verified Procedure Verified Yes Correct Patient Yes Position Verified Availability Equipment, Medication Prep Dry n/a Verified (If Applicable) PreOp Antibiotic No Time Out Glen MCGREGOR, Domo Oh[place], Given Participants Zeinab Harrell NILL MD, Nuno Belcher RN, Morgan E Time Out Complete 04/18/22 07:55:00 Outcomes Met? Yes Last Modified By: Guero Reina RN 04/18/22 07:57:22 Post-Care Text: The patient is free from signs and symptoms of injury caused by extraneous objects Allergy Information FT Pre-Care Text: Verifies allergies Entry 1 Allergies Reviewed? Yes Allergies Reviewed Self/Patient With Outcomes Met? Yes Last Modified By: Guero Reina RN 04/18/22 07:19:01 Post-Care Text: The patient received appropriate medication(s) safely administered during the perioperative period Surgical Procedures FT Entry 1 Procedure Description Procedure COLONOSCOPY Modifiers . Surgeon Description Colonoscopy Primary Procedure Yes Primary Surgeon Bill COURTNEY MD Start 04/18/22 07:59:00 Stop 04/18/22 08:25:00 Anesthesia Type General Surgical Service General Wound Class 2 - Clean-Contaminated Last Modified By: Guero Reina RN 04/18/22 08:26:42 General Comments: colonoscopy incomplete due to inability to reach cecum MSRN General Case Data FT Pre-Care Text: Classifies surgical wound, implements aseptic technique, initiates traffic control Entry 1 Case Information OR ENDO 1 FT Case Level Level 2 Wound Class 2 - Clean-Contaminated Specialty General ASA Class 2 Preop Diagnosis Positive cologuard Postop Same As Preop No Postop Diagnosis Sigmoid diverticulosis Outcomes Met? Yes Last Modified By: Guero Reina RN 04/18/22 08:26:18 Post-Care Text: The patient is free from signs and symptoms of infection Skin Assessment (Pre Procedure) FT Pre-Care Text: Implements protective measures to prevent skin/ tissue injury due to thermal or mechanical sources Evaluates for signs and symptoms of physical injury to skin and tissue Entry 1 Skin Integrity Dry, Warm Skin Abnormality No Outcomes Met? Yes Last Modified By: Guero Reina RN 04/18/22 07:19:44 Post-Care Text: The patient is free from signs and symptoms of injury caused by extraneous objects Patient Positioning FT Pre-Care Text: Identifies physical alterations that require additional precautions for procedure-specific positioning, verifies presence of prosthetics or corrective devices, positions the patient, evaluates the patient for signs and symptoms of injury as a result of positioning Entry 1 Procedure COLONOSCOPY(.) Body Position Lateral, right side up Feet Uncrossed? Yes Left (more content not included)... Normal [facility] Main OR Preoperative Recordo n 04-18-2022 Main OR Preoperative Record Holding Area Document Type FT Summary Primary Physician: Bill COURTNEY MD Finalized Date/Time: 04/18/22 07:07:15 Pt. Name: DOMO PIÑA/Sex: 1960 Male Med Rec #: [id number] Physician: Bill COURTNEY MD Financial #: [id number] Pt. Type: O Room/Bed: / Admit/Disch: 04/18/22 06:51:37 - Institution: Case Times Holding FT Pre-Care Text: Verifies consent for planned procedure, identifies individual values and wishes concerning care, includes family members in perioperative teaching Secures patient's records' belongings, and valuables, maintains patient's dignity and privacy, and maintains patient confidentiality Entry 1 In Holding 04/18/22 06:56:00 Outcomes Met? Yes Last Modified By: Naya Blackman RN 04/18/22 06:59:31 Post-Care Text: The patient participates in decisions affecting his or her perioperative plan of care The patient's right to privacy is maintained Surgery Checklist FT Entry 1 Patient Birthday, ID Band Procedure History and Physical, Identification: Check, Patient Verification: Surgical Consent, With Participation Patient NPO after Midnight: Yes Date/Time: 04/18/22 00:00:00 Personal Items: Glasses, Jewelry Personal Items glasses, wedding band, Comment: clothes, shoes Limitations: n/a Complaints of Pain: No Pain Comment: denies Operative Site n/a Marking: Marked By: n/a Availability Equipment Verified: Does Patient Smoke Yes If Yes to Smoking. 4-5 cigarettes per day Cigars or Cigarettes. How much per day? Patient states Yes Comment - Adult pb- Marii postop adult Supervision supervision available Case Cancelled in No Holding Area see comments below for reason Last Modified By: Naya Blackman RN 04/18/22 07:00:19 General Comments: Pt finished colon prep before midnight, states stool is clear liquid yellow /MDRN Finalized By: Naya Blackman RN Document Signatures Signed By: Naya Blackman RN 04/18/22 07:00 Naya Blackman RN 04/18/22 07:07 Normal [facility] Monitor Recordon 04-18-2022 Monitor Record [id number]#1. 00CD:127 Normal [facility] Monitor Record [id number]#1. 00CD:127 Normal [facility] Outpatient Surgery Discharge Instructionon 04-18-2022 Outpatient Surgery Discharge Instruction [place] [id number] Patient Discharge Instructions PERSON INFORMATION Name: DOMO PIÑA Date of : 1960 Current Date: 04/18/2022 08:32:40 PHYSICIANS Admitting Physician: Bill COURTNEY MD Discharge Diagnosis: Diverticulosis of sigmoid colon DOMO PIÑA has been given the following list of follow-up instructions, prescriptions, and patient education materials: PATIENT FOLLOW-UP INFORMATION Diet: Regular Discharge Activity: Resume normal activities in 24 hours, Arrange for a responsible adult supervision for 24 hours Discharge Restrictions: No driving for 24 hrs, Do not operate machinery or tools, Do not make important decisions for 24 hours, Do not drink alcoholic beverages for 24 hours Call Your Doctor For: Persistent or heavy bleeding, Temperature above 101.5 degrees, Redness, swelling, or pus at operative site, Severe pain at the operative site, Persistent vomiting IF UNABLE TO CONTACT YOUR PHYSICIAN AND YOU FEEL IT IS AN EMERGENCY, GO TO THE NEAREST EMERGENCY ROOM OR CALL 911 I, DOMO PIÑA, have received the attached patient education materials/instructions and have verbalized understanding: May we do a follow up call? Yes No I was present when discharge instructions were given Patient Signature Date Clinican/Nurse Signature ___ Date Follow up: With: Address: When: Bill COURTNEY [address] [place] [address], [address], [address] [address] Business (1) Within 7 to 10 days Pharmacy Information: Other: [facility] You may receive a survey from [employer] asking you to rate your care experience. Your feedback is important and will help us understand what we do well and how we can improve the quality of care we provide to you, your loved ones and our community. It?s an honor to serve you. Thank you for choosing [facility] HERE ARE THE MEDICATION CHANGES THAT OCCURRED DURING YOUR HOSPITAL STAY Medications to Continue with No Changes Other Medications atorvastatin (atorvastatin 40 mg Tab) 1 Tablets By Mouth every day. carvedilol (carvedilol 3.125 mg Tab) 1 Tablets By Mouth 2 times a day. loratadine (loratadine 10 mg Tab) 1 Tablets By Mouth every day. PATIENT EDUCATION INFORMATION Instructions: Medication Leaflets: [facility] Patient Education - Texton 0 04-18-2022 Patient Education - Text [facility] Progress Note-Physicianon Progress Note-Physician Patient: DOMO PIÑA Age: 62 years Sex: Male : 1960 Associated Diagnoses: None Author: Domo Carroll MD Postoperative Information Postoperative disposition: Postoperative disposition: To PACU. Anesthetic utilized: General. Health Status Problem list: All Problems IFG (impaired fasting glucose) / SNOMED CT 9471089922 / Confirmed Nicotine dependence / SNOMED CT 75772144 / Confirmed Positive colorectal cancer screening using Cologuard test / SNOMED CT 7497460195 / Confirmed Vasomotor rhinitis / SNOMED CT 57867310 / Confirmed Physical Examination Vital Signs 04/18/2022 8:28 EST Temperature Temporal Artery 36.8 DegC Heart Rate Monitored 77 bpm Respiratory Rate Monitored 22 br/min Systolic Blood Pressure 101 mmHg Diastolic Blood Pressure 73 mmHg Blood Pressure Location Left arm Mean Arterial Pressure, Cuff 82 mmHg SpO2 98 % Pain Assessment: Controlled. General: Awake, Alert, Appropriate. Respiratory: Adequate air exchange. Cardiovascular: Stable. Neurological: Normal sensory function, Normal motor function. Assessment Anesthetic outcome No anesthetic complications noted. Adequate pain relief. Review / Management Condition: Stable. Plan Transfer/Discharge: Transfer/Discharge Discharge when meets criteria ( To home ). Normal [facility] Comment on above: Result Comment: Elec tronically Signed By: Domo Carroll MD\.br\Date and Time Signed: 04/18/22 09:39 EST Progress Note-Physician Patient: DOMO PIÑA Age: 62 years Sex: Male : 1960 Associated Diagnoses: None Author: Domo Carroll MD Preoperative Information Anesthesia Preop Info: Time patient last ate or drank 04/17/2022 23:00:00. Anesthesia history: Patient history: None. Family history+: None. Anesthesia results: Reviewed Results: Anesthesia results from flowsheet : Results(Date Range: 02/25/2022 12:59 EST - 04/18/2022 6:52 EST) . Informed consent: Signed by patient. Including risks, benefits, and alternatives related to the: Anesthetic plan. Re-evaluation prior to induction: Domo Carroll MD. Initial evaluation reviewed: No significant change. Review of Systems Eye: Negative. Ear/Nose/Mouth/Throat: Negative. Respiratory: Negative. Cardiovascular: Negative, recent saw not working as well with cards scheduled for cath. Gastrointestinal: Negative except as documented in history of present illness. Genitourinary: Negative. Hematology/Lymphatics: Negative. Endocrine: Negative. Musculoskeletal: Negative. Neurologic: Negative. Health Status Allergies: Allergic Reactions (Selected) No Known Allergies No Known Medication Allergies, Allergies (2) Active Reaction No Known Allergies None Documented No Known Medication Allergies None Documented Current medications: (Selected) Inpatient Medications Ordered Lactated Ringers IV Yaa 1000 mL 1,000 mL: 1,000 mL, IV, 100 mL/hr, Routine, Start date 04/18/22 6:57:00 EST, 10 hour(s), Total volume (mL): 1,000, 59.3 kg, 1.66, m2 Sodium Chloride 0.9% IV Yaa 1000 mL 1,000 mL: 1,000 mL, IV, 20 mL/hr, Routine, Start date 04/18/22 6:43:00 EST, 50 hour(s), Total volume (mL): 1,000, 59.3 kg, 1.66, m2 Documented Medications Documented loratadine 10 mg Tab: 10 mg = 1 tab(s), Oral, Daily, Refills(s) 0, Allergy symptoms, Home Medications (1) Active loratadine 10 mg Tab 10 mg = 1 tab(s), Oral, Daily , Medications (2) Active Scheduled: (0) Continuous: (2) Lactated Ringers 1,000 mL 1,000 mL, IV, 100 mL/hr Sodium Chloride 0.9% 1,000 mL 1,000 mL, IV, 20 mL/hr PRN: (0) Problem list: All Problems IFG (impaired fasting glucose) / SNOMED CT 2023132334 / Confirmed Nicotine dependence / SNOMED CT 57591967 / Confirmed Positive colorectal cancer screening using Cologuard test / SNOMED CT 9089098888 / Confirmed Vasomotor rhinitis / SNOMED CT 74468723 / Confirmed, Active Problems (4) IFG (impaired fasting glucose) Nicotine dependence Positive colorectal cancer screening using Cologuard test Vasomotor rhinitis Histories Past Medical History: No active or resolved past medical history items have been selected or recorded. Family History: Heart disease Father Diabetes mellitus type 2 Father COPD Father Mother Procedure history: Repair of right inguinal hernia (6154183260). Social History Social & Psychosocial Habits Alcohol 03/25/2022 Risk Assessment: Denies Alcohol Use Substance Abuse 03/25/2022 Use: Current Type: Marijuana Frequency: 1-2 times per week Tobacco 03/25/2022 Tobacco Use: 10 or more cigarettes (1/ Smokeless tobacco use: Never Type: Cigarettes Tobacco use per day: 0.5 Started at age: 16.0 Years Smoking Cessation Yes . Physical Examination No qualifying data available Airway: Mallampati classification: II (soft palate, fauces, uvula visible). Distance: Adequate. Respiratory: Lungs are clear to auscultation. Cardiovascular: Regular rhythm. Review / Management Results review: No qualifying data available . Plan [place] [employer] (ASA) physical status classification: Class II. Anesthetic Preoperative Plan: Anesthesia General. Normal [facility] Comment on above: Result Comment: Elec tronically Signed By: Glen MCGREGOR, Domo Yoo\Date and Time Signed: 04/18/22 07:01 EST XR Barium Enema w/ Air Compl eteon 04-18-2022 XR Barium Enema w/ Air Complete Exam Date/Time: 04/18/2022 11:54 EST Reason for Exam: Incomplete colonoscopy Report IMPRESSION: PREDOMINANTLY SIGMOID DIVERTICULOSIS. OTHERWISE, NEGATIVE MILDLY LIMITED DOUBLE CONTRAST BARIUM ENEMA. EXAM: XR Barium Enema w/ Air Complete DATE: 04/18/2022 CLINICAL HISTORY: Incomplete colonoscopy. COMPARISON: None available. TECHNIQUE: An erect zoology teacher radiograph of the abdomen and pelvis was obtained. A double contrast barium enema was performed with reflux of barium and air from the rectum to the cecum. A total of 2055.31 DAP (mGym2) of fluoroscopy was used with 6 fluoroscopic cine series saved, and a total of 16 diagnostic images. FINDINGS: The study is mildly limited by colon tortuosity. Predominantly sigmoid diverticulosis is noted. There are no suspicious masses, stricture, or obvious polyps, or other findings of concern identified. FINAL REPORT Dictated: 04/18/2022 1:20 pm Sandeep Jasmine MD Signed (Electronic Signature): 04/18/2022 1:20 pm Signed by: Sandeep Jasmine MD Transcribed by: NANDINI Technologist: ADA Technical Comments Radiation Dose: Ka,r in mGy = 165.1 Normal [facility] Coding Summary.on 04-14-2022 Coding Summary. CD:[id number] Gh 0bWw+PGhlYWQ+YF4GPGCmY 07pdEDwrS4DG1gUTQ4PBKR PMDOBNP7QIE2hqVR1EExeY 2VybiAv CgzlbSZnNZ56PBi8AAA0gD pwZAgatR4acULvS8e4ZfNz YW49pA38UUmaGWJgVrD3Jj ZpbjsgbWFy K8ntSaZqxQLmMnc+PHRhYm xlIHdpZHRoPScxMDAlJyBz yWtjPD9xRx4uUGTfFEAhyF xhcHNlOiBj i2fzKBAjBGghFK8ruEaaV4 AblVO7SHFlc3o3Ym21nVQ+ NGPaGWL1iBbdTMtqv152Kb Ioa5kcQSI9 rNThVJkcKNL7S33uc9U8AJ ZhZUWlEIS9rRX0qE1kbJlw kyztE5WveZBnSuW7PYB9zT WfpD6zeRbg dgbycW7sRbz+Y30UCS6EKC BBKO1AGvw1Q2OoRtamoIP+ XV57EGYrXU63gKVenHAcj9 mckBz7NgEa PTFuFKO0eAfzNRqvf9CcJQ DrF61ljCJvv0C9JTZskAqh cDTbObBtoIJ7gR0iKIvpjw rxm3nedumd Zdesf3sfbs58xA89Y20zKT yaENMhTSY9QSHaFQQuvKcv wr9gxR0jQr0+KZpqt1bkw4 tpqSe7OcAl HIAfdxDszJumPPJ1u5BnHf 81C8WliJytz5PkKtn6cy22 aMBvj6M0pLK5XEqmJRTzcD 3fJHyjGcO1 EEFdRaNotS62hEVoBWezTa 5nsPlodAxkJP9aTWGlvdey DMArqE4uEAWtkUMwhPioMT 4wNTBpbjtm q414MrHtHSZ9DKUdkKXwI6 GotA3hOaBlQOLsAVEgE9Xb vMLnLEieD853KDgaJrZ7TN HsyyUeB6Fj MZKkgSmbTfW4x8T1Kd2Kf5 ZudssxGEY0ONrdCWWsGyVi XsAnZcX3V8BhRdq9KFYloF yaDQ3dI1So JFPdmabatpqqrCH0VPFrJI RsxO07zXXrBYupYu4at9A8 x394DKCkQJLylV45Vw0auS ogMTBwdCBU iR3zyqdag6vkrfrtFoKuVV CcBPv8BSc0YATcrPbvCkCg YFM9MkV7JZE4jTDltC9rwG xuehxmdL4r Oyc+I64vwZ3sHXV7GWD3ih hdFFAdslMgAQ42IN23U6Ir PjwvdGFibGU+PGRpdiBzdH raPX1mYpEn c0uss0GmDKgxH6BiDJRcQF haMvu6TSShMPO6cIP5xZ5x FBSoCIssh1B7cFY8J5Bwwq Cevg4np3zu ZWZqALhoD73zjOCpc3Q2KV VftSX6TFIxrGclZyMcuG63 Oyc+SOUvtRojm6PtWypqr9 crf7onkWk7 TcAlNODctdKujIlrVBM0g6 JsZa57Q62hQNgoMMPjHSNg QJYpARIxyPstrp9qjR2iFo 8+PGNvbCB3 aHY9bM6dLHBuOqZ5WTidA8 82SxDxdAIbShapd6ard0lu fVb5LvHpFUZuhhKjjZahDP U2d1CrHn90 M30aVGfjGYWaOJWsGMLhFI DukVuffl6gaI3nYz2+PC9j j1sxdp12oF76bAG+PHRkIH V4hOsxRAya PWXhmC1yPLkaSeE0EBDuQd UesT46cYSfOJckHy1buRvq jZbvVP4sUZIcxrczf938Wy Loj4gaSXPd kUXdBQaxITG6C59sy6T6HP RlXVPlTCX5vTL4dK7hhCar bjogbGVmdDsgdmVydGljYW hzFYhlM182 IHRvcDsnPlBhdGllbnQgTm ZmTJm6G8ZuYly4DHScoIuw SP1klNWfKMrnHd5cfTghlN woBU9gQKWn xdsbl898LpMmd0ouSONymG HgWFdbVWW8O44ik4V7EFGl DOGgSQD8yVJ2wO3nxQvxwy ogbGVmdDsg wcSlqSdlKClaNJcpI192KR RvcDsnPkJpcnRoIERhdGU6 OZ50VN48kPSbu4G7oGD2Y8 BhZGRpbmct wsgfxJQ2CFLnENZgrX01Dc 1byJkoTc1sZZCzLSF3VXCj fBDpE5IklM0qKsViSTCkLY VcU6JkaNEr NScdP538GLmbXrD2WAUvkz SrP1CcRPXmyHmmElE7p7V2 Ti1MN4H9NK96QE20rGXkm9 O9hXN2U6Xs DMXodbitxsbyeOR0YKSqNZ IvdE34Fw3srAhwEb0zPKOf QAD9HNHstTKnR5MrfN8hTv AjMDAwMDAw Q3TspQZoMQhmO938TIsuXv A1PGShfzSiR9PmWHJcrMmw UvB0g8G2Wj7JBOr3BO22MY 25nWSps8X1 iAQ2S1ZnVZHdeurgyvzzcS K4GCOlNRAuyT15Iz8hfZys Sm5uHSUlKBV2FLSesLYxK2 EgcP2lWzWj EZQdXJPsR2UtqSCkWJiwI7 22WNyiCuI0HFUbseEdH9Zc AWQirVgzJgG2r9Z2Lb3PCC YrRN04JNT4 xLJ5WZ93BB25N3RyBklaaJ FibGU+PHRhYmxlIHdpZHRo YXufEFAqSdFipZkuDG7nOm 9yZGVyLWNv uZqioOAaBdIgr6ilVCItLJ kbJZ8ryNqwS2WqiQJ7NQJi d1r5Cw24K70sR6QvzDJ+PG VjoXG0wPT7 yK3zXmCmVqH7JNzlT873Id LtsIGmTeife5tay0pbiGo7 LwA2MWOhtwRmnYlcQTI9z8 VyYz07R55z IHdpZHRoPSIxNSUiIHZhbG wvup1iqT5rJt5+PGNvbCB3 bQF9zE2wQgVlDyH6IFhvP2 49InRvcCIv Tujvm0vel7zvoTa0SaXwVZ MvlbMpiUtcTNU3f4GwLy47 E7LvoDgws5EdZkl7jx22kO Ful8M8sRU4 M9UfXKSwaknuhRLnePhtRL 8gTBSuoeziHCFapK4gADFc C1i2DpQeJoR3ZHwoO3Xpnf J0KYLicXGk NDbeFXD4B09ko1O7QYUhAH MoUNB0xQO4hR2dnEglcdyy bGVmdDsgdmVydGljYWwtYW bhG749DFWg cWsvXSIjnM9kLUKyuOYhxK xkKS1bIOMwajxvYcQVHZJR VwJQDjjqDc0MFREAZSf6X1 JjPzc4STRm wGpkOM2atSUoHTtbJl0exV edoOoiJW0bUROujquyPGPr xX9yAXClkVQstVclXJ2kMN Kjidoyw600 RsCvSDL3VJOutDNnQ3CtcY 3wQnRaIXIpOIPzE9IhaWFr BPykU274DYiwOoP7PBAgag QwN5MePHBt jMxpDtZ3y4N8Ie9pRX6nHT 6nHUOqFJ04BT47oRHkh4K9 jFA3O5OiJGHsmwifmvghaO B4GHAsYJYu gI47bOFeOHwgQn5pl0Q6b3 20ZNXbAMTzhK60Iz8mdYrq CRVslKRNhY9oeavph5kcsb ogIzAwMDAw QBo9PKo4ZDPuxSxhFmPvVX D4RfL2PSC1iDMkbR9ibWlv teywkZ3yLlo+NjMgWWVhcn O2C5LuRdc2 CHKzoBczCK8yrLNmFIxeDt 2rfWlsbJbsRB1pKFRcfrbr QJGudP2qIRRpzGIbwDwbXT 4wNTBpbjtm w315RsQzZFM1IPUewFClI4 CftT1vBcXoGUQlVQWbE5Sr aHRsPJcmT406LOdjCvD5GY CystOsD1Dj LKNkeZowFnG7b2T7Ch9XUF hdEO88NR32eZCqi8P6bEA8 Z7EcVCIdzgmdxratcVW1IF HaCUJkaQ80 aIInOVmqAy6cm5S0a043FA BvTQWjaS59Pj5maFjfLKWb gSFQuQ0teybnm9wxdeffJn AwMDAwMDt0 YNq8UDGhrHpyDiItQGL1Rl L6QFO7iGLmmY3sdAphairg pX6aGqt+ZnWfjGUwkT1cKW 80UO25Y8Kh PjwvdGFibGU+PHRhYmxlIH dpZHRoPScxMDAlJyBzdHls YH6sOd5mWCZkAAZzaHblwA LaRzZtw0my QMEbZRzaET7nrUwpG9FzkZ I3TAXro3f8Wl55S87oJ4Ik dXA+LJPvpQD7eAQ3zF5xXs DtTkR7PHul N581MsNhgSLxUbhgr7utz1 mugXg8ZfZzWNTnfoFwnRbr ZRA1u9ElGf09E89yTOaiDD RoPSIyMCUi TIQgxEcdnb3qeF3iPg1+PG LjcTJ8uDE8cK3uZmRtTlV1 TYplJ612ShCdwUOfDoqvD3 7hK8CydUW+ ZNObJft5KYGjeApsLB9iuE ByQSwnAt7bHVZ1UkQaGgRf ZHcnI4GtHJZlzmjmbnkshM Y4ZRYvXUXg dB92Mx3wkBmsDy9sSCGaSN L8UBDrpXQuT2OwbU1vNcBc HHFlSTYiP9EggGYcMTgxN4 17FUgnBzF2 PQStrrUnR0GvFXBqyCqzQe N7v9K3Kp9SkTucsJFqID2y VdOhZWx4Z8YlVxk0VAGclX bmGC9rdTEp UVfuIy4zgXfzvYjmBS6aGM Rluxynz151LfQbh9csFWYr gPNxXSwrKNV4V82ni8V1FQ MwMDAwMDA7 nIY3hL6wiOixvwwcaARmpQ fcowPaeWbyNVvoLUnhX646 XURqwRkyMkKOMbs2L6JcUr f2UMUblUvy PR9ljPPnYLckYl9ogQonfS tdKS6nYVIrpowiu297OtQs o9vwUPEqeINbQUhuCAM7B0 8uu3Q1WZWq HUVtRPC8xRA1eF5fpGuhoa ogbGVmdDsgdmVydGljYWwt BWknN273LAGhoBxjQa4WYn z7C7TbXto9 QQAoaKjfBU6kcYAlIOxkUv 4zzPzccRfaAU1nXOXtkiep n093RrNcz4acBNVegXVnAV pgUKL1N25q y1F8SWLbJPDmKLB7jHL3eH 1hbGlnbjogbGVmdDsgdmVy hZouJDxiKRjwH275KGWmpB snPlBheWVy OjwvdGQ+RN46da72O7WlIt hrUkb1NNIlCVQ6nDV4cY8j FYKsNTzlp7T3rUL2F1Hhff Rqjz0ys4wg YXBz (more content not included)... Normal [facility] COVID-19 ([facility])on 04-12-2022 Performing Instrument FT [place] 2 Normal [facility] Comment on above: Performed By: #### 2 [id number] ####[facility] [id number] [place] [address] SARS-CoV-2 (COVID-19) RNA JULIANNE+probe Ql (Resp) Not detected Normal Not Detected [facility] Comment on above: Result Comment: This test result should be correlated with clinical presentations and medical history by a healthcare provider to determine its clinical significance. This assay was performed by a reverse transcriptase real-time polymerase chain reaction (rt PCR) method on the Bion[employer] system. This test has been authorized only for the detection of nucleic acid from SARS-CoV-2, not for any other viruses or pathogens. This test has not been FDA cleared or approved. This test has been authorized by FDA under an Emergency Use Authorization (EUA). This test is only authorized for the duration of time the declaration on that circumstances exist justifying the authorization emergency use of in vitro diagnostic tests for detection and/or diagnosis of COVID-19 infection under section 564 (b) (1) of the Act, 21 U.S.C. 360 bbb-3 (b) (1), unless authorization is terminated or revoked sooner. Performed By: #### 2 [id number] ####[place] [address] SARS-CoV-2 (COVID-19) RNA JULIANNE+probe Ql (Unsp spec) Pass Normal Pass [facility] Comment on above: Performed By: #### 2 [id number] ####[place] [address] Specimen source Nom (Unsp spec) Nasal Normal [facility] Comment on above: Performed By: #### 2 [id number] ####[address] [address] Consent for Treatmenton 03-24 Consent for Treatment [id number] 0CD:127 Normal [facility] COVID-19 ([facility])on 04-10-2022 ADMITTED TO INTENSIVE CARE UNIT FOR CONDITION OF INTEREST:FIND:PT: Unknown Normal [facility] Comment on above: Performed By: #### 2 [id number] ####[place] [id number] EMPLOYED IN A HEALTHCARE SETTING:FIND:PT: Unknown Normal [facility] Comment on above: Performed By: #### 2 [id number] ####[place] [address] FIRST TEST FOR CONDITION OF INTEREST:FIND:PT: Unknown Normal [facility] Comment on above: Performed By: #### 2 [id number] ####[place] [address] HAS SYMPTOMS RELATED TO CONDITION OF INTEREST:FIND:PT: Unknown Normal [facility] Comment on above: Performed By: #### 2 [id number] ####[place] [address] HOSPITALIZED FOR CONDITION OF INTEREST:FIND:PT: Unknown Normal [facility] Comment on above: Performed By: #### 2 [id number] ####[place] [address] STATUS:FIND:PT: NO Normal [facility] Comment on above: Performed By: #### 2 [id number] ####[place] [address] RESIDES IN A [facility] CARE SETTING:FIND:PT: Unknown Normal [facility] Comment on above: Performed By: #### 2 [id number] ####[place] [address] US CAROTID ART BILon 023 US CAROTID ART ELLEN EXAMINATION: US CAROTID ART ELLEN HISTORY: Partial occlusion of left retinal artery COMPARISON: No relevant comparison available. TECHNIQUE: Duplex Doppler ultrasound analysis of carotid and vertebral arteries. . Bilateral carotid arterial duplex examination was performed using B-mode, color flow and spectral analysis. Carotid stenosis is reported according to validated velocity parameters, similar to NASCET criteria. FINDINGS: RIGHT CAROTID ARTERY Mild atherosclerotic plaque Subclavian: PSV: 66.7 cm/s cm/s EDV: 0.0 cm/s cm/s CCA: Prox: PSV: 57.7 cm/s cm/s EDV: 17.6 cm/s cm/s Mid: PSV: 42.4 cm/s cm/s EDV: 13.2 cm/s cm/s Distal: PSV: 30.3 cm/s cm/s EDV: 12.5 cm/s cm/s BULB: PSV: 40.3 cm/s cm/s EDV: 16.8 cm/s cm/s ICA: Prox: PSV: 57.8 cm/s cm/s EDV: 25.9 cm/s cm/s Mid: PSV: 72.1 cm/s cm/s EDV: 35.8 cm/s cm/s Distal: PSV: 82.0 cm/s cm/s EDV: 30.3 cm/s cm/s ECA: PSV: 62.2 cm/s cm/s EDV: 18.2 cm/s cm/s VERTEBRAL: PSV: 35.3 cm/s cm/s EDV: 14.0 cm/s cm/s ICA/CCA ratio: PSV: 1.9 EDV: 2.4 LEFT CAROTID ARTERY Mild atherosclerotic plaque Subclavian: PSV: 91.9 cm/s cm/s EDV: 0.0 cm/s CCA: Prox: PSV: 69.9 cm/s cm/s EDV: 19.3 cm/s Mid: PSV: 47.9 cm/s cm/s EDV: 13.8 cm/s Distal: PSV: 37.4 cm/s cm/s EDV: 11.1 cm/s BULB: PSV: 34.8 cm/s cm/s EDV: 13.5 cm/s ICA: Prox: PSV: 37.0 cm/s cm/s EDV: 16.8 cm/s Mid: PSV: 54.6 cm/s cm/s EDV: 23.2 cm/s Distal: PSV: 54.6 cm/s cm/s EDV: 23.2 cm/s ECA: PSV: 74.3 cm/s cm/s EDV: 20.4 cm/s VERTEBRAL: PSV: 33.8 cm/s cm/s EDV: 12.4 cm/s ICA/CCA ratio: PSV: 1.5 EDV: 2.1 IMPRESSION: 0-49% flow stenosis bilateral internal carotid arteries Spectral Doppler US Thresholds (Reference: Nathan EG, et al. Radiology 2000; 214:247-252) Stenosis (%) PSV (cm/sec) VICA/VCCA 0-49 <150 <2.5 50-69 150-225 2.5-4.0 >70 >225 >4.0 Electronically authenticated by: ISABELLE TENA Date: 2022-04-08 08:14 Normal [facility] ECHOCARDIO M/2D COMPLETEon 0 04-07-2022 ECHOCARDIO M/2D COMPLETE Patient: DOMO PIÑA Exam Date: 04/07/2022 : 1960 Gender:M Ordering : DR VIJAY MCKEON D.O. Admission #: [id number] Family : Order #: [id number] CLICK HERE TO VIEW EXAM ECHOCARDIOGRAM REPORT PROCEDURE: CARDIO PULMONARY ECHOCARDIO M/2D COMP INDICATIONS: Hollenhorst plaque COMPARISON: None. DESCRIPTION: COMPLETE ECHOCARDIOGRAM Real-time transthoracic echocardiography with 2D, M-mode, spectral and color flow Doppler performed. QUALITY: Technical quality was good. LEFT VENTRICLE: Normal chamber size. Normal left ventricular wall thickness. LV EF: Global left ventricular systolic function is mildly reduced; visually estimated ejection fraction is 40-45%. The basal and mid inferolateral bassett are akinetic. DIASTOLIC: Grade I diastolic dysfunction. ATRIAL SEPTUM: Inadequately seen. LEFT ATRIUM: Normal chamber size. RIGHT ATRIUM: Normal chamber size. RIGHT VENTRICLE: Normal chamber size. Normal right ventricular systolic function. TRICUSPID VALVE: Normal mobility and thickness. No stenosis with trivial regurgitation. No evidence of pulmonary hypertension. RVSP 25mmHg MITRAL VALVE: Normal mobility and thickness. No mitral valve prolapse. No evidence of mitral valve stenosis. There is no mitral annular calcification. Mild mitral regurgitation. AORTIC VALVE: Normal trileaflet appearance. Mildly calcified aortic valve. Normal leaflet mobility. No evidence of aortic valve stenosis. No aortic regurgitation. AORTIC ROOT: Normal diameter and appearance. PULMONIC VALVE: Normal thickness and mobility. No stenosis. No regurgitation. PERICARDIUM: No evidence of pericardial effusion. IVC: Collapses with inspirations. Normal size. CONCLUSION: Global left ventricular systolic function is mildly reduced; visually estimated ejection fraction is 40 to 45%. Segmental wall motion abnormality seen. The right ventricle is normal in size and systolic function. Mild diastolic dysfunction. Mild mitral regurgitation. Adult Echocardiography Procedure Report Left Ventricle LVEDD (3.7 - 5.6 cm): 5.29 cm LVESD (2.2 - 4.0 cm): 4.37 cm LVIVS thickness (0.6 - 1.2 cm): 0.94 cm LVPW thickness (0.5 - 1.0 cm): 0.79 cm e': 0.08 m/s E - e': 5.95 LVOT Max Gradient: 3.79 mm[Hg], 3.57 mm[Hg] Peak Velocity (LVOT): 0.97 m/s, 0.94 m/s Mean Velocity (LVOT): 0.70 m/s, 0.66 m/s LVOT Diameter 2.06 cm Left Atrium LA Volume Index (2D A2C): 48.65 ml, 48.65 ml Left Atrium Systolic Dimension: 3.24 cm Mitral Valve MV E to A Ratio: 0.64, 0.65 Mitral Valve A-Wave Peak Velocity: 0.77 m/s, 0.74 m/s Mitral Valve E-Wave Peak Velocity: 0.50 m/s, 0.48 m/s Right Ventricle RV Internal Diastolic Dimension: 3.09 cm Aorta AO Root Diam: 3.18 cm Ascending Ao Diam: 3.23 cm Aortic Valve AoV Area (Peak Ildefonso): 2.43 cm2, 2.46 cm2 AoV Area (VTI): 2.24 cm2, 2.34 cm2 Peak Velocity(Antegrade Flow): 1.32 m/s Peak Gradient(Antegrade Flow): 6.99 mm[Hg] Mean Velocity(Antegrade Flow): 0.98 m/s Mean Gradient(Antegrade Flow): 4.09 mm[Hg] Velocity Time Integral: 24.95 cm Tricuspid Valve Peak Velocity (Regurgitant Flow): 1.82 m/s, 1.71 m/s, 2.33 m/s Pulmonic Valve Peak Velocity: 0.74 m/s, 0.83 m/s Peak Gradient: 2.21 mm[Hg], 2.76 mm[Hg] Right Atrium Right Atrium Systolic Pressure: 23.92 ml, 23.92 ml Dictated by: Kanika Thompson M.D. on 2022 at 09:30 Approved by: Kanika Thompson M.D. on 2022 at 09:36 Normal [facility] CBC AUTO DIFFon 02-01-2022 BASO # 0.1 103/ul Normal 0.0-0.1 [facility] Comment on above: Performed By: #### C BC #### [facility] [address] [place] [address] Dr. Luisana Ramachandran Basophils/100 WBC (Bld) 1.1 % Normal 0.2-2.0 [facility] Comment on above: Performed By: #### C BC #### [facility] [address] [place] [address] Dr. Luisana Ramachandran EO # 0.2 103/ul Normal 0.0-0.7 [facility] Comment on above: Performed By: #### C BC #### [facility] [address] [place] [address] Dr. Luisana Ramachandran Eosinophils/100 WBC (Bld) 2.4 % Normal 0.9-7.0 [facility] Comment on above: Performed By: #### C BC #### [facility] [address] [place] [address] Dr. Luisana Ramachandran Erythrocyte distribution width (RBC) [Ratio] 13.2 % Normal 11.0-15.0 [facility] Comment on above: Performed By: #### C BC #### [facility] [address] [place] [address] Dr. Luisana Ramachandran Hematocrit (Bld) [Volume fraction] 49.2 % Normal 42.0-54.0 [facility] Comment on above: Performed By: #### C BC #### [facility] [address] [place] [address] Dr. Luisana Ramachandran Hemoglobin (Bld) [Mass/Vol] 16.0 g/dL Normal 14.0-18.0 [facility] Comment on above: Performed By: #### C BC #### [facility] [address] [place] [address] Dr. Luisana Ramachandran IG # 0.03 10e3/ul Normal 0.00-0.03 [facility] Comment on above: Performed By: #### C BC #### [facility] [address] [place] [address] Dr. Luisana Ramachandran IG % 0.3 % Normal 0.0-0.5 [facility] Comment on above: Performed By: #### C BC #### [facility] [address] [place] [address] [address] Luisana Ramachandran LYMPH # 3.2 103/ul Normal 1.2-3.8 [facility] Comment on above: Performed By: #### C BC #### [facility] [address] [place] [address] Dr. Luisana Ramachandran Lymphocytes/100 WBC (Bld) 32.4 % Normal 20.5-60.0 [facility] Comment on above: Performed By: #### C BC #### [facility] [address] [place] [address] Dr. Luisana Ramachandran MANUAL DIFF REQ NO Normal [facility] Comment on above: Performed By: #### C BC #### [facility] [address] [place] [address] Dr. Luisana Ramachandran MCH (RBC) [Entitic mass] 29.1 pg Normal 25.9-34.0 [facility] Comment on above: Performed By: #### C BC #### [facility] [address] [place] [address] Dr. Luisana Ramachandran MCHC (RBC) [Mass/Vol] 32.5 g/dL Normal 29.9-35.2 [facility] Comment on above: Performed By: #### C BC #### [facility] [address] [place] [address] Dr. Luisana Ramachandran MCV (RBC) [Entitic vol] 89.6 fL Normal 80.0-94.0 [facility] Comment on above: Performed By: #### C BC #### [facility] [address] [place] [address] Dr. Luisana Ramachandran MONO # 0.8 103/ul Normal 0.3-0.8 [facility] Comment on above: Performed By: #### C BC #### [facility] [address] [place] [address] Dr. Luisana Ramachandran Monocytes/100 WBC (Bld) 8.1 % Normal 1.7-12.0 [facility] Comment on above: Performed By: #### C BC #### [facility] [address] [place] [address] [address] Luisana Ramachandran NEUT # 5.5 103/ul Normal 1.4-6.5 [facility] Comment on above: Performed By: #### C BC #### [facility] [address] [address] [address] Luisana Ramachandran Neutrophils/100 WBC (Bld) 55.7 % Normal 43.0-75.0 [facility] Comment on above: Performed By: #### C BC #### [facility] [address] [place] [address] Dr. Luisana Ramachandran Platelet mean volume (Bld) [Entitic vol] 11.1 fL Normal 9.5-13.5 [facility] Comment on above: Performed By: #### C BC #### [facility] [address] [place] [address] Dr. Luisana Ramachandran PLT 228 103/ul Normal 150-450 [facility] Comment on above: Performed By: #### C BC #### [facility] [address] [place] [address] Dr. Luisana Ramachandran RBC 5.49 106/ul Normal 4.70-6.10 [facility] Comment on above: Performed By: #### C BC #### [facility] [address] [place] [address] Dr. Luisana Ramachandran WBC 9.8 103/ul Normal 4.0-11.0 [facility] Comment on above: Performed By: #### C BC #### [facility] [address] [place] [address] Dr. Luisana Ramachandran LIPID PROFILEon 02-01-2022 CHOL-HDL RATIO NORM SEE BELOW Normal [facility] Comment on above: Result Comment: 3.3 - 4.4 LOW RISK 4.4 - 7.1 AVERAGE RISK 7.1 - 11.0 MODERATE RISK >11.0 HIGH RISK Performed By: #### L IPID, CMP #### [facility] [address] [place] [address] Dr. Luisana Ramachandran Cholesterol [Mass/Vol] 199 mg/dL Normal <=200 [facility] Comment on above: Performed By: #### L IPID, CMP #### [facility] [address] [address] [address] Luisana Ramachandran Cholesterol in HDL [Mass/Vol] 53 mg/dL Normal 40-60 [facility] Comment on above: Performed By: #### L IPID, CMP #### [facility] [address] [address] [address] Luisana Ramachandran Cholesterol in LDL [Mass/Vol] 127.2 mg/dL Normal [facility] Comment on above: Performed By: #### L IPID, CMP #### [facility] [address] [place] [address] Dr. Luisana Ramachandran Cholesterol.total/C holesterol in HDL [Mass ratio] 3.8 {ratio} Normal [facility] Comment on above: Performed By: #### L IPID, CMP #### [facility] [address] [place] [address] Dr. Luisana Ramachandran HDL NORMAL > or = 60 mg/dl - LO W CARDIOVASCULAR RISK <40 mg/dl - HIGH CARDIOVASCULAR RISK Normal [facility] Comment on above: Performed By: #### L IPID, CMP #### [facility] [address] [place] [address] Dr. Luisana Ramachandran LDL CALC NORMAL SEE BELOW Normal [facility] Comment on above: Result Comment: <100 mg/dl OPTIMAL 100 - 129 mg/dl NEAR OR ABOVE OPTIMAL 130 - 159 mg/dl BORDERLINE HIGH 160 - 189 mg/dl HIGH >190 mg/dl VERY HIGH Performed By: #### L IPID, CMP #### [facility] [address] [place] [address] Dr. Luisana Ramachandran Triglyceride [Mass/Vol] 94 mg/dL Normal <=150 [facility] Comment on above: Performed By: #### L IPID, CMP #### [facility] [address] [place] [address] Dr. Luisana Ramachandran VLDL CALC 18.8 mg/dL Normal [facility] Comment on above: Performed By: #### L IPID, CMP #### [facility] [address] [place] [address] Dr. Luisana Ramachandran PROF 14(COMP METB)on 022 Albumin [Mass/Vol] 4.0 g/dL Normal 3.4-5.0 [facility] Comment on above: Performed By: #### L IPID, CMP #### [facility] [address] [address] [address] Luisana Ramachandran Albumin/Globulin [Mass ratio] 1.0 {ratio} Normal [facility] Comment on above: Performed By: #### L IPID, CMP #### [facility] [address] [address] [address] Luisana Ramachandran ALP [Catalytic activity/Vol] 70 U/L Normal 46-116 [facility] Comment on above: Performed By: #### L IPID, CMP #### [facility] [address] [address] [address] Luisana Ramachandran ALT [Catalytic activity/Vol] 27 U/L Normal 16-63 [facility] Comment on above: Performed By: #### L IPID, CMP #### [facility] [address] [address] [address] Luisana Ramachandran Anion gap [Moles/Vol] 12.0 mmol/L Normal [facility] Comment on above: Performed By: #### L IPID, CMP #### [facility] [address] [address] [address] Luisana Ramachandran AST [Catalytic activity/Vol] 15 U/L Normal 15-37 [facility] Comment on above: Performed By: #### L IPID, CMP #### [facility] [address] [address] [address] Luisana Ramachandran Bilirubin [Mass/Vol] 0.3 mg/dL Normal 0.2-1.0 [facility] Comment on above: Performed By: #### L IPID, CMP #### [facility] [address] [address] [address] Luisana Ramachandran Calcium [Mass/Vol] 9.3 mg/dL Normal 8.5-10.1 [facility] Comment on above: Performed By: #### L IPID, CMP #### [facility] [address] [address] [address] Luisana Ramachandran Chloride [Moles/Vol] 103 mmol/L Normal 98-107 [facility] Comment on above: Performed By: #### L IPID, CMP #### [facility] [address] [address] [address] Luisana Ramachandran CO2 [Moles/Vol] 29.2 mmol/L Normal 21.0-32.0 [facility] Comment on above: Performed By: #### L IPID, CMP #### [facility] [address] [address] [address] Luisana Ramachandran Creatinine [Mass/Vol] 0.94 mg/dL Normal 0.70-1.30 [facility] Comment on above: Performed By: #### L IPID, CMP #### [facility] [address] [place] [address] Dr. Luisana Ramachandran EGFR-AF GREEK >60 Normal >=60 [facility] Comment on above: Performed By: #### L IPID, CMP #### [facility] [address] [place] [address] Dr. Luisana Ramachandran EGFR-NON AF GREEK >60 Normal >=60 [facility] Comment on above: Performed By: #### L IPID, CMP #### [facility] [address] [place] [address] Dr. Luisana Ramachandran Globulin (S) [Mass/Vol] 4.0 g/dL Normal [facility] Comment on above: Performed By: #### L IPID, CMP #### [facility] [address] [place] [address] Dr. Luisana Ramachandran Glucose [Mass/Vol] 96 mg/dL Normal 74-106 [facility] Comment on above: Performed By: #### L IPID, CMP #### [facility] [address] [address] [address] Luisana Ramachandran Potassium [Moles/Vol] 4.2 mmol/L Normal 3.5-5.1 [facility] Comment on above: Performed By: #### L IPID, CMP #### [facility] [address] [address] [address] Luisana Ramachandran Protein [Mass/Vol] 8.0 g/dL Normal 6.4-8.2 [facility] Comment on above: Performed By: #### L IPID, CMP #### [facility] [address] [address] [address] Luisana Ramachandran Sodium [Moles/Vol] 140 mmol/L Normal 136-145 [facility] Comment on above: Performed By: #### L IPID, CMP #### [facility] [address] [address] [address] Luisana Ramachandran Urea nitrogen [Mass/Vol] 15.0 mg/dL Normal 7.0-18.0 [facility] [facility] Comment on above: Performed By: #### L IPID, CMP #### [facility] [address] [address] [address] Luisana Ramachandran Urea nitrogen/Creatinine [Mass ratio] 16.0 mg/mg Normal [facility] Comment on above: Performed By: #### L IPID, CMP #### [facility] [address] [address] [address] Luisana Ramachandran Vital Signs Date Time Vital Sign Value Performing Clinician Facility 04-18-2022 08:55-0500 Blood Pressure Location Bill ROZ [facility] 04-18-2022 08:55-0500 Diastolic blood pressure 94 mm[Hg] Bill KINGL [facility] 04-18-2022 08:55-0500 Heart rate 84 /min Bill KINGL [facility] 04-18-2022 08:55-0500 Mean blood pressure 108 mm[Hg] Bill KINGL [facility] 04-18-2022 08:55-0500 Respiratory rate 19 /min Bill KINGL [facility] 04-18-2022 08:55-0500 SaO2% (BldA) [Mass fraction] 95 % Bill KINGL [facility] 04-18-2022 08:55-0500 Systolic blood pressure 136 mm[Hg] Bill NILL [facility] 04-18-2022 08:45-0500 Blood Pressure Location Bill NILL [facility] 04-18-2022 08:45-0500 Diastolic blood pressure 95 mm[Hg] Bill NILL [facility] 04-18-2022 08:45-0500 Heart rate 85 /min Bill NILL [facility] 04-18-2022 08:45-0500 Mean blood pressure 107 mm[Hg] Bill NILL [facility] 04-18-2022 08:45-0500 Respiratory rate 19 /min Bill NILL [facility] 04-18-2022 08:45-0500 SaO2% (BldA) [Mass fraction] 94 % Bill NILL [facility] 04-18-2022 08:45-0500 Systolic blood pressure 131 mm[Hg] Bill NILL [facility] 04-18-2022 08:40-0500 Blood Pressure Location Bill NILL [facility] 04-18-2022 08:40-0500 Diastolic blood pressure 91 mm[Hg] Bill NILL [facility] 04-18-2022 08:40-0500 Heart rate 81 /min Bill NILL [facility] 04-18-2022 08:40-0500 Mean blood pressure 104 mm[Hg] Bill NILL [facility] 04-18-2022 08:40-0500 Respiratory rate 19 /min Bill NILL [facility] 04-18-2022 08:40-0500 SaO2% (BldA) [Mass fraction] 97 % Bill KINGL [facility] 04-18-2022 08:40-0500 Systolic blood pressure 130 mm[Hg] Bill KINGL [facility] 04-18-2022 08:28-0500 Body temperature 98.24 [degF] Bill KINGL [facility] 04-18-2022 07:55-0500 Respiratory rate 1 /min Bill KINGL [facility] 04-18-2022 07:11-0500 Body temperature 98.6 [degF] Bill KINGL [facility] 04-10-2022 16:00-0500 Body height 168.91 cm Vijay Ball Other [facility] [employer] Other 04-10-2022 16:00-0500 Body mass index (BMI) [Ratio] 21.33 kg/m2 Vijay Ball Other [employer] Other 04-10-2022 16:00-0500 Body weight 60.87 kg Vijay Ball Other [employer] Other 04-10-2022 16:00-0500 Diastolic blood pressure 82 mm[Hg] Vijay Ball Other [employer] Other 04-10-2022 16:00-0500 Respiratory rate 12 /min Vijay Ball Other [employer] Other 04-10-2022 16:00-0500 Systolic blood pressure 122 mm[Hg] Vijay Ball Other [employer] Other 03-25-2022 09:01-0500 Blood Pressure Location Bill KINGL [facility] 03-25-2022 09:01-0500 Diastolic blood pressure 93 mm[Hg] Bill KINGL [facility] 03-25-2022 09:01-0500 Heart rate 89 /min Bill NILL [facility] 03-25-2022 09:01-0500 Respiratory rate 16 /min Bill KINGL [facility] 03-25-2022 09:01-0500 Systolic blood pressure 138 mm[Hg] Bill KINGL [facility] Encounters Encounter Date Encounter Type Care Provider Facility Start: 05-29-2023 ambulatory [facility] Start: 04-10-2023 End: 04-10-2023 ambulatory Vijay Mckeon Other [employer] Other Start: 04-10-2023 Telephone encounter Vijay Mckeon [facility] Start: 03-04-2023 End: 03-04-2023 ambulatory [facility] Start: 02-02-2023 End: 02-02-2023 ambulatory [facility] Start: 10-31-2022 End: 10-31-2022 ambulatory [facility] Start: 05-16-2022 End: 05-16-2022 ambulatory Vijay Mckeon Other [employer] Other Start: 05-16-2022 Telephone encounter Vijay CORDVOA [facility] Start: 05-08-2022 End: 05-08-2022 ambulatory Vijay Mckeon Other [employer] Other Start: 05-08-2022 Telephone encounter Vijay Mckeon [facility] Start: 05-02-2022 End: 05-02-2022 ambulatory Vijay Mckeon Other [employer] Other Start: 05-02-2022 Telephone encounter Vijay Mike CORDOVA [facility] Start: 04-24-2022 End: 04-24-2022 ambulatory Vjiay Mckeon Other [employer] Other Start: 04-24-2022 Telephone encounter Vijay Mckeon [facility] Start: 04-22-2022 End: 04-23-[address] VIJAY MCKEON Facility: Start: 04-18-2022 End: 04-19-2022 ambulatory Bill COURTNEY Facility:[facility] Start: 04-18-2022 End: 04-18-2022 Patient encounter procedure Bill COURTNEY [facility] Start: 04-11-2022 End: 07-11-2022 ambulatory Bill COURTNEY Facility:[facility] Start: 04-10-2022 End: 04-11-[address] VIJAY MCKEON [facility] [employer] Other Start: 04-10-2022 Office outpatient vi sit 15 minutes Vijay Mckeon [facility] Start: 04-10-2022 Telephone encounter Vijay Mckeon [facility] Start: 04-07-2022 End: 04-08-[address] VIJAY MCKEON Facility:[facility] Start: 03-28-2022 End: 03-28-2022 ambulatory Sonny Pate Other [employer] Other Start: 03-28-2022 Telephone encounter Sonny Billy [facility] Start: 03-27-2022 End: 03-27-2022 ambulatory Vijay Mckeon Other [employer] Other Start: 03-27-2022 Telephone encounter Vijay Mckeon [facility] Start: 03-25-2022 End: 04-20-2023 Recurring Bill COURTNEY [facility] Start: 03-25-2022 End: 03-25-2022 [facility] Start: 02-04-2022 Encounter for genera l adult medical examination without abnormal findings DR VIJAY MCKEON [facility] Start: 02-01-2022 End: 02-02-[address] VIJAY MCKEON Facility:[facility] Start: 02-01-2022 End: 02-02-2022 Encounter for general adult medical examination without abnormal findings DR VIJAY MCKEON Facility:[facility] Start: 01-28-2022 Adult health examination Vijay Mckeon Other [employer] Other Procedures Date Procedure Procedure Detail Performing Clinician Start: 04-18-2022 Colonoscopy Bill NUNEZ Start: 02-01-[address] NEO MCKEON Comment on above: Performed By: #### P [facility] #### [facility] [address] [place] [address] Dr. Luisana Ramachandran Start: 06-05-2018 Screening for malign ant neoplasm of colon Vijay Mckeon Other Start: 02-06-2015 General examination of patient Vijay Mckeon Other Depression screening Mary Lou Mckeon Other Repair of right ingu inal hernia Bill ROZ Screening for malign ant neoplasm of prostate Vijay Mckeon Other Immunizations Immunization Date Immunization Notes Care Provider Amy hernandez 01-12-2002 hepatitis B vaccine, adult dosage Vijay Mckeon Other [employer] Other 10-15-2001 hepatitis B vaccine, adult dosage Vijay Mckeon Other [employer] Other 06-16-2001 hepatitis B vaccine, adult dosage Vijay Mckeon Other [employer] Other Payers Date Payer Category Payer Unknown [id number] [id number] [id number] 1959 Unknown [id number] 2.16.84 [id number] 1959 Unknown [id number] 2.16.84 [id number] 1959 Unknown [id number] 2.16.84 [id number] 1959 Unknown [id number] 2.16.8 [id number] 1959 Unknown [id number] 2.16.8 [id number] 1959 Unknown [id number] 2.16.8 [id number] 1959 Unknown [id number] Social History Date Type Detail Facility Start: 03-25-2022 Tobacco smoking status Heavy t obacco smoker (finding) [facility] Tobacco smoking status Never [facility] Sex Assigned At Male [facility] Functional Status Date Assessment Result Facility 04-18-2022 Functional Status N/A [facility] 03-25-2022 Functional Status N/A [facility] Clinical Notes 04-10-2022 to 05-29-2023 Note Date & Type Note Facility 05-29-2023 Note Cardiovascular Medic in[facility] SUBJECTIVE No chief complaint on file. Domo Piña is a 63 y.o. male here for follow-up. HPI Patient was initially referred to Cardiology for reduced EF. Cardiac cath was performed for newly reduced Mid range systolic heart failure- EF 40-45%, with noted moderate non obstructive CAD in proximal to mid LAD post cath. Follow-up Echocardiogram demonstrated an EF of 40%. Overall, patient is doing well. He denies any new cardiac complaints or concerns. Dyspnea on exertion is stable. Dry cough has improved since switching lisinopril to losartan. 03/04/2023 BP has been running good at home, 120s/70s He has been feeling well. He mentioned to me that his cardiac work up started after a retina specialist told him he had plaque in his retinal which is likely a sign of a stroke. He has not yet worn a heart monitor. He notes occasional palpitations that are short lived. He denies c/o dizziness/LH, dyspnea, chest pain, leg swelling, syncope. Patient Active Problem List Diagnosis Chronic systolic congestive heart failure (CMS/HCC) Vasomotor rhinitis Positive colorectal cancer screening using Cologuard test Nicotine dependence IFG (impaired fasting glucose) Coronary artery disease involving north fork coronary artery of north fork heart without angina pectoris Mixed hyperlipidemia Past Medical History: Diagnosis Date Coronary artery disease Hyperlipidemia Family History Problem Relation Name Age of Onset Heart attack Father Coronary artery disease Father Other (CABG) Father Social History Tobacco Use Smoking status: Every Day Packs/day: .5 Types: Cigarettes Smokeless tobacco: Never Substance Use Topics Alcohol use: Not Currently Allergies Allergen Reactions Lisinopril Hives ROS Musculoskeletal: Positive for arthritis and myalgias. All other systems reviewed and are negative. OBJECTIVE Visit Vitals BP 136/88 (BP Location: Right arm, Patient Position: Sitting) Pulse 80 Ht 1.676 m (5' 6 ) Wt 60.8 kg (134 lb) SpO2 96% BMI 21.63 kg/m??? Smoking Status Every Day BSA 1.68 m??? Medications: Current Outpatient Medications: aspirin 81 mg EC tablet, Take 81 mg by mouth in the morning., Disp: , Rfl: atorvastatin (Lipitor) 80 mg tablet, TAKE 1 TABLET BY MOUTH IN THE MORNING, Disp: 90 tablet, Rfl: 3 metoprolol succinate XL (Toprol-XL) 100 mg 24 hr tablet, Take 1 tablet (100 mg) by mouth in the morning. Do not crush or chew., Disp: 30 tablet, Rfl: 11 spironolactone (Aldactone) 25 mg tablet, Take 1 tablet (25 mg) by mouth in the morning., Disp: 90 tablet, Rfl: 3 losartan (Cozaar) 25 mg tablet, Take 1 tablet (25 mg) by mouth once daily as directed., Disp: 90 tablet, Rfl: 3 Physical Exam Constitutional: Appearance: Normal appearance. He is normal weight. HENT: Head: Normocephalic and atraumatic. Right Ear: External ear normal. Left Ear: External ear normal. Eyes: Extraocular Movements: Extraocular movements intact. Pupils: Pupils are equal, round, and reactive to light. Neck: Vascular: No carotid bruit. Cardiovascular: Rate and Rhythm: Normal rate and regular rhythm. Pulses: Normal pulses. Heart sounds: Normal heart sounds. Pulmonary: Effort: Pulmonary effort is normal. Breath sounds: Normal breath sounds. Abdominal: General: Bowel sounds are normal. Palpations: Abdomen is soft. Musculoskeletal: General: Normal range of motion. Cervical back: Neck supple. Right lower leg: No edema. Left lower leg: No edema. Skin: General: Skin is warm and dry. Neurological: General: No focal deficit present. Mental Status: He is alert and oriented to person, place, and time. Psychiatric: Mood and Affect: Mood normal. Behavior: Behavior normal. Thought Content: Thought content normal. Judgment: Judgment normal. Labs: Admission on 04/28/2022, Discharged on 04/28/2022 Component Date Value Ref Range Status Ventricular Rate 04/28/2022 88 BPM Final Atrial Rate 04/28/2022 88 BPM Final MT Interval 04/28/2022 124 ms Final QRS DURATION 04/28/2022 90 ms Final QT Interval 04/28/2022 344 ms Final QTC CALCULATION(BAZETT) 04/28/2022 416 ms Final P [place] 04/28/2022 89 degrees Final R-[place] 04/28/2022 17 degrees Final T Wave [place] 04/28/2022 66 degrees Final Glucose 04/22/2022 106 mg/dL In process BUN, Bld 04/22/2022 11 In process Creatinine 04/22/2022 0.8 In process WBC 04/22/2022 9.8 In process RBC (0/HPF) 04/22/2022 4.9 In process Hemoglobin 04/22/2022 14.5 In process Hematocrit 04/22/2022 43.7 In process Platelets 04/22/2022 240 In process Sodium 04/22/2022 139 In process Potassium 04/22/2022 4 In process Chloride 04/22/2022 100 In process CALCIUM FOR PTH 04/22/2022 9.3 In process 03/02/23 Cr 1.01, BUN 20, eGFR >60, K 4.1, Na 139 11/12/22 CBC normal NA 140 normal Renal function normal- BUN 15, CR 0.94 K+-4.2 normal Liver function normal Chol 199, Trig (more content not included)... [facility] 05-29-2023 Note Patient here for 3 m o follow up chronic systolic heart failure, non-obstructive CAD, and hyperlipidemia. C/o fatigue and cough. States his LUNA remains unchanged from prior apt in Feb 2023. said BP has been around 100/70, but he denies lightheadedness/syncope. Patient says usually BP is in the 115's/70's-80's. Denies chest pain, palpitations, and LE edema. No recent labs or imaging. Today was first day he's been out of losartan. [facility] 04-10-2023 Evaluation note Encounter Date Diagnosis Assessment Notes Mar, Acute bronchitis due to other specified organisms (ICD-10 - J20.8) [facility] Other [id number] NotePatient here for 1 mo follow up CAD, chronic systolic heart failure, and hyperlipidemia. He was switched from carvedilol to metoprolol at last visit in Jan [address] Anderson. He had labs 2 days ago, after increasing spironolactone to full 25mg tablet daily. Says he's felt much better the past 2 weeks. Denies chest pain, SOB, lightheadedness, and palpitations. Review of Systems Musculoskeletal: Positive for arthritis and myalgias. All other systems reviewed and are negative.[facility] 03-04-2023 NoteCardiovascular Medicine [facility] SUBJECTIVE Chief Complaint Patient presents with Congestive Heart Failure Domo Piña is a 62 y.o. male here for follow-up. Patient here for 1 mo follow up CAD, chronic systolic heart failure, and hyperlipidemia. He was switched from carvedilol to metoprolol at last visit in Jan [address] Anderson. He had labs 2 days ago, after increasing spironolactone to full 25mg tablet daily. Says he's felt much better the past 2 weeks. Denies chest pain, SOB, lightheadedness, and palpitations. HPI Patient was initially referred to Cardiology for reduced EF. Cardiac cath was performed for newly reduced Mid range systolic heart failure- EF 40-45%, with noted moderate non obstructive CAD in proximal to mid LAD post cath. Follow-up Echocardiogram demonstrated an EF of 40%. 03/04/2023 BP has been running good at home, 120s/70s He has been feeling well. He mentioned to me that his cardiac work up started after a retina specialist told him he had plaque in his retinal which is likely a sign of a stroke. He has not yet worn a heart monitor. He notes occasional palpitations that are short lived. He denies c/o dizziness/LH, dyspnea, chest pain, leg swelling, syncope. Patient Active Problem List Diagnosis Chronic systolic congestive heart failure (CMS/HCC) Vasomotor rhinitis Positive colorectal cancer screening using Cologuard test Nicotine dependence IFG (impaired fasting glucose) Coronary artery disease involving north fork coronary artery of north fork heart without angina pectoris Mixed hyperlipidemia Past Medical History: Diagnosis Date Coronary artery disease Hyperlipidemia Family History Problem Relation Name Age of Onset Heart attack Father Coronary artery disease Father Other (CABG) Father Social History Tobacco Use Smoking status: Every Day Packs/day: .5 Types: Cigarettes Smokeless tobacco: Never Substance Use Topics Alcohol use: Not Currently Allergies Allergen Reactions Lisinopril Hives ROS Musculoskeletal: Positive for arthritis and myalgias. All other systems reviewed and are negative. OBJECTIVE Visit Vitals BP 125/77 (BP Location: Left arm, Patient Position: Sitting) Pulse 91 Ht 1.676 m (5' 6 ) Wt 61.7 kg (136 lb) SpO2 95% BMI 21.95 kg/m??? Smoking Status Every Day BSA 1.69 m??? Medications: Current Outpatient Medications: aspirin 81 mg EC tablet, Take 81 mg by mouth in the morning., Disp: , Rfl: atorvastatin (Lipitor) 80 mg tablet, Take 1 tablet (80 mg) by mouth in the morning., Disp: 30 tablet, Rfl: 11 losartan (Cozaar) 25 mg tablet, Take 1 tablet (25 mg) by mouth in the morning., Disp: 90 tablet, Rfl: 3 spironolactone (Aldactone) 25 mg tablet, Take 1 tablet (25 mg) by mouth in the morning., Disp: 90 tablet, Rfl: 3 metoprolol succinate XL (Toprol-XL) 100 mg 24 hr tablet, Take 1 tablet (100 mg) by mouth in the morning. Do not crush or chew., Disp: 30 tablet, Rfl: 11 Physical Exam Constitutional: Appearance: Normal appearance. He is normal weight. HENT: Head: Normocephalic and atraumatic. Right Ear: External ear normal. Left Ear: External ear normal. Eyes: Extraocular Movements: Extraocular movements intact. Pupils: Pupils are equal, round, and reactive to light. Neck: Vascular: No carotid bruit. Cardiovascular: Rate and Rhythm: Normal rate and regular rhythm. Pulses: Normal pulses. Heart sounds: Normal heart sounds. Pulmonary: Effort: Pulmonary effort is normal. Breath sounds: Normal breath sounds. Abdominal: General: Bowel sounds are normal. Palpations: Abdomen is soft. Musculoskeletal: General: Normal range of motion. Cervical back: Neck supple. Right lower leg: No edema. Left lower leg: No edema. Skin: General: Skin is warm and dry. Neurological: General: No focal deficit present. Mental Status: He is alert and oriented to person, place, and time. Psychiatric: Mood and Affect: Mood normal. Behavior: Behavior normal. Thought Content: Thought content normal. Judgment: Judgment normal. Labs: Admission on 04/28/2022, Discharged on 04/28/2022 Component Date Value Ref Range Status Ventricular Rate 04/28/2022 88 BPM Final Atrial Rate 04/28/2022 88 BPM Final MT Interval 04/28/2022 124 ms Final QRS DURATION 04/28/2022 90 ms Final QT Interval 04/28/2022 344 ms Final QTC CALCULATION(BAZETT) 04/28/2022 416 ms Final P [place] 04/28/2022 89 degrees Final R-[place] 04/28/2022 17 degrees Final T Wave [place] 04/28/2022 66 degrees Final Glucose 04/22/2022 106 mg/dL In process BUN, Bld 04/22/2022 11 In process Creatinine 04/22/2022 0.8 In process WBC 04/22/2022 9.8 In process RBC (0/HPF) 04/22/2022 4.9 In process Hemoglobin 04/22/2022 14.5 In process Hematocrit 04/22/2022 43.7 In process Platelets 04/22/2022 240 In process Sodium 04/22/2022 139 In process Potassium 04/22/2022 4 In process Chloride 04/22/2022 100 In proces (more content not included)...[facility]11-13-2023 NoteUTP CARDIOLOGY PROGRESS NOTE HPI: Domo Piña is a 62 y.o. male here for follow up. Patient was initially referred to Cardiology for reduced EF. Cardiac cath was performed for newly reduced Mid range systolic heart failure- EF 40-45%, with noted moderate non obstructive CAD in proximal to mid LAD post cath. Follow-up Echocardiogram demonstrated an EF of 40%. Patient presents today for follow-up. Overall, patient states that he is doing very well. He Adamantly denies any cardiac complaints or concern. Patient adamantly denies any cardiac complaints or concerns. Patient denies any chest pain or shortness of breath. Patient denies any lower extremity edema, orthopnea, or proximal nocturnal dyspnea. No near-syncope or syncope. No dizziness or lightheadedness. Review of Systems 10 point ROS is performed and negative unless otherwise specified in HPI Visit Vitals BP 114/77 (BP Location: Left arm, Patient Position: Sitting) Pulse 78 Ht 1.676 m (5' 6 ) SpO2 97% BMI 20.98 kg/m??? Smoking Status Every Day BSA 1.66 m??? Allergies Allergen Reactions Lisinopril Hives Medications: Current Outpatient Medications on File Prior to Visit Medication Sig Dispense Refill aspirin 81 mg EC tablet Take 81 mg by mouth in the morning. atorvastatin (Lipitor) 80 mg tablet Take 1 tablet (80 mg) by mouth in the morning. (Patient taking differently: Take 80 mg by mouth at bedtime.) 30 tablet 11 carvedilol (Coreg) 6.25 mg tablet Take 1 tablet (6.25 mg) by mouth with breakfast and with evening meal. 180 tablet 3 losartan (Cozaar) 25 mg tablet Take 1 tablet (25 mg) by mouth in the morning. 90 tablet 3 spironolactone (Aldactone) 25 mg tablet Take 0.5 tablets (12.5 mg) by mouth in the morning. 45 tablet 3 carvedilol (Coreg) 3.125 mg tablet Take 1 tablet (3.125 mg) by mouth with breakfast and with evening meal. (Patient not taking: Reported on 02/02/2023) 180 tablet 3 empagliflozin (Jardiance) 10 mg Take 1 tablet (10 mg) by mouth in the morning. (Patient not taking: Reported on 02/02/2023) 90 tablet 3 lisinopril 5 mg tablet Take 1 tablet (5 mg) by mouth in the morning. (Patient not taking: Reported on 02/02/2023) 90 tablet 3 No current facility-administered medications on file prior to visit. Physical Exam: Constitutional: Appearance: Normal appearance. Without apparent distress, thin appearing HENT: Head: Normocephalic and atraumatic. Nose: Nose normal. Mouth/Throat: Mouth: Mucous membranes are moist. Eyes: Extraocular Movements: Extraocular movements intact. Conjunctiva/sclera: Conjunctivae normal. Neck: Vascular: No JVD. Cardiovascular: Rate and Rhythm: Normal rate and regular rhythm. Pulses: Dorsalis pedis pulses are 3 on the right side and 3on the left side. Posterior tibial pulses are 3 on the right side and 3 on the left side. Heart sounds: Normal heart sounds, S1 normal and S2 normal. Pulmonary: Effort: Pulmonary effort is normal. Breath sounds: Normal breath sounds. Abdominal: General: Bowel sounds are normal. Palpations: Abdomen is soft. Musculoskeletal: General: Normal range of motion. Cervical back: Normal range of motion. Right lower leg: No edema. Left lower leg: No edema. Skin: General: Skin is warm and dry. Capillary Refill: Capillary refill takes less than 2 seconds. Neurological: General: No focal deficit present. Mental Status: alert and oriented to person, place, and time. Psychiatric: Mood and Affect: Mood normal. Behavior: Behavior normal. Thought Content: Thought content normal. Judgment: Judgment normal. Labs: 02/01/22 CBC normal NA 140 normal Renal function normal- BUN 15, CR 0.94 K+-4.2 normal Liver function normal Chol 199, Trig 94, HDL 53, LDL 127.2 Last lab values have been reviewed CV Testin04/28/22 heart cath- Final Impressions: -MERCHANDISE FLOW MANAGER of small sized RCA. Distal vessel appears to fill via left to right collaterals -OM3 is a small caliber vessel with subtotal occlusion in the proximal to mid portion of the vessel. The distal vessel fills via left to left collaterals -moderate non obstructive CAD in proximal to mid LAD Recommendations: -Aspirin 81 mg daily and high intensity statin therapy -Optimization of medical management for HFrEF -Aggressive risk factor modification -Follow up with Cardiology as scheduled 04/07/22 Echocardiogram LVSF mildly reduced 40-45%. Wall motion abnormality. RV normal size and systolic function Mild diastolic dysfunction Mild MR A/P: Chronic systolic congestive heart failure (CMS/HCC) [facility] II, currently appears euvolemic without exacerbation Continue GDMT- He is currently on ASA, coreg, losartan, aldactone, and lipitor. Will discontinue Coreg and start patient on Toprol XL 75 mg daily for better ability to titrate without dropping Bp as much. Increase spironolactone from 12.5 mg daily to 25 mg daily. Check BMP in 1 week Monitor daily weights, (more content not included)...[facility]11-13-2023 NotePatient here for 3 mo follow up chronic systolic heart failure, non-obstructive CAD, and hyperlipidemia. Had echo in Nov 2022 after last apt. Carvedilol was increased at last visit. Denies chest pain, palpitations, and lightheadedness. Review of Systems Musculoskeletal: Positive for arthritis and myalgias. All other systems reviewed and are negative.[facility] 10-31-2022 NoteUTP CARDIOLOGY PROGRESS NOTE HPI: Domo Piña is a 62 y.o. male here for follow up. Patient was initially referred to Cardiology for reduced EF. Cardiac cath was performed for newly reduced Mid range systolic heart failure- EF 40-45%, with noted moderate non obstructive CAD in proximal to mid LAD post cath. Patient presents today for follow up. Patient denies any cardiac complaints or concerns. Patient denies any chest pain or shortness of breath. Patient denies any lower extremity edema, orthopnea, or proximal nocturnal dyspnea. No near-syncope or syncope. No dizziness or lightheadedness. Review of Systems 10 point ROS is performed and negative unless otherwise specified in HPI Visit Vitals BP 133/88 (BP Location: Left arm, Patient Position: Sitting) Pulse 78 Ht 1.676 m (5' 6 ) Wt 59 kg (130 lb) SpO2 95% BMI 20.98 kg/m??? Smoking Status Every Day BSA 1.66 m??? Allergies Allergen Reactions Lisinopril Hives Medications: Current Outpatient Medications on File Prior to Visit Medication Sig Dispense Refill aspirin 81 mg EC tablet Take 81 mg by mouth in the morning. atorvastatin (Lipitor) 80 mg tablet Take 1 tablet (80 mg) by mouth in the morning. 30 tablet 11 carvedilol (Coreg) 3.125 mg tablet Take 1 tablet (3.125 mg) by mouth with breakfast and with evening meal. 180 tablet 3 losartan (Cozaar) 25 mg tablet Take 1 tablet (25 mg) by mouth in the morning. 90 tablet 3 spironolactone (Aldactone) 25 mg tablet Take 0.5 tablets (12.5 mg) by mouth in the morning. 45 tablet 3 empagliflozin (Jardiance) 10 mg Take 1 tablet (10 mg) by mouth in the morning. 90 tablet 3 lisinopril 5 mg tablet Take 1 tablet (5 mg) by mouth in the morning. 90 tablet 3 No current facility-administered medications on file prior to visit. Physical Exam: Constitutional: Appearance: Normal appearance. Without apparent distress, thin appearing HENT: Head: Normocephalic and atraumatic. Nose: Nose normal. Mouth/Throat: Mouth: Mucous membranes are moist. Eyes: Extraocular Movements: Extraocular movements intact. Conjunctiva/sclera: Conjunctivae normal. Neck: Vascular: No JVD. Cardiovascular: Rate and Rhythm: Normal rate and regular rhythm. Pulses: Dorsalis pedis pulses are 3 on the right side and 3on the left side. Posterior tibial pulses are 3 on the right side and 3 on the left side. Heart sounds: Normal heart sounds, S1 normal and S2 normal. Pulmonary: Effort: Pulmonary effort is normal. Breath sounds: Normal breath sounds. Abdominal: General: Bowel sounds are normal. Palpations: Abdomen is soft. Musculoskeletal: General: Normal range of motion. Cervical back: Normal range of motion. Right lower leg: No edema. Left lower leg: No edema. Skin: General: Skin is warm and dry. Capillary Refill: Capillary refill takes less than 2 seconds. Neurological: General: No focal deficit present. Mental Status: alert and oriented to person, place, and time. Psychiatric: Mood and Affect: Mood normal. Behavior: Behavior normal. Thought Content: Thought content normal. Judgment: Judgment normal. Labs: 02/01/22 CBC normal NA 140 normal Renal function normal- BUN 15, CR 0.94 K+-4.2 normal Liver function normal Chol 199, Trig 94, HDL 53, LDL 127.2 Last lab values have been reviewed CV Testin04/28/22 heart cath- Final Impressions: -MERCHANDISE FLOW MANAGER of small sized RCA. Distal vessel appears to fill via left to right collaterals -OM3 is a small caliber vessel with subtotal occlusion in the proximal to mid portion of the vessel. The distal vessel fills via left to left collaterals -moderate non obstructive CAD in proximal to mid LAD Recommendations: -Aspirin 81 mg daily and high intensity statin therapy -Optimization of medical management for HFrEF -Aggressive risk factor modification -Follow up with Cardiology as scheduled 04/07/22 Echocardiogram LVSF mildly reduced 40-45%. Wall motion abnormality. RV normal size and systolic function Mild diastolic dysfunction Mild MR A/P: Chronic systolic congestive heart failure (CMS/HCC) [facility], currently appears euvolemic without exacerbation Continue GDMT- ASA, coreg, losartan, aldactone, and lipitor. He was prescribed farxciga but this was not started due to insurance issues. Will increase coreg dose and repeat echo for LVEF assesment Monitor daily weights, I&O, fluid restriction 1.5-2L/day, renal function and electrolytes Non obstructive CAD Continue Aspirin, Statin. No angina or anginal equivalents Mixed hyperlipidemia Continue lipitor Nicotine dependence Remains non smoking currently RTC 2 weeks, repeat labs in 1-2 weeks to assess renal function and electrolytes [facility]08-11-2023 NotePatient here for 4 mo follow up CHF and hyperlipidemia. He was started on Farxiga by Marysol Ling at last apt. His insurance would not cover it, so she prescribed Jardiance. Patient did not start this medication, and never picked it up from the pharmacy. states she hears labored breathing from him, but he denies SOB and chest pain. She states she hears his labored breathing during the night, but denies he snores and denies witnessed apnea. He had BMP a few days ago. Review of Systems All other systems reviewed and are negative.[facility] 07-22-2022 NoteInsurance preference for Jardiance over farxiga- therefore [facility]* Encounter Date Diagnosis Assessment Notes Treatment Notes Treatment Clinical Notes Apr, ASHD (arteriosclerotic heart disease) (ICD-10 - I25.10) LHC: LAD 50%, diagonal 30% + 70%, OM subtotal - 04/2022 [facility] Other 01-30-2023 Note [id number] [facility] 04-18-2022 Evaluation + Plan noteExtracted from: Title:ANES Post-operative Note Author:Domo Carroll MD Date:04/18/22 Plan Transfer/Discharge: Transfer/Discharge Discharge when meets criteria ( To home ). Extracted from: Title:ANES Pre-operative Note Author:Javid Carroll MD Date:04/18/22 Plan [place] [employer] (ASA) physical status classification: Class II. Anesthetic Preoperative Plan: Anesthesia General. [facility]01-27-2023 Hospital Discharge instructions Patient Education 04/18/2022 08:32:55 Diverticulosis MAGR (CUSTOM) Diverticulosis Many people have small pouches in their colon called diverticulum. The diverticulum bulge outward through weak spots in the colon. You could have one or more of these pouches in the colon. The condition of having these pouches in the colon is called diverticulosis or diverticular disease. Diverticulosis is usually diagnosed by tests to evaluate something else. For example, you may have had a colonoscopy to screen for colon cancer when the diverticulosis was found. Most people with diverticulosis do not have any discomfort or problems. If symptoms develop, they may include mild cramps, bloating, and constipation. A complication of this condition is called diverticulitis. This is when the diverticulum become inflamed and infected. How to treat diverticulosis: Increasing the amount of fiber in the diet may reduce symptoms of diverticulosis and prevent complications such as diverticulitis (infected diverticuli). Fiber keeps stool soft and lowers pressure inside the colon so that bowel contents can move througheasily. You should eat 20 to 35 grams of fiber each day. The table below shows the amount of fiber in some foods that you can easily add to your diet. Adding fiber slowly may decrease the bloating and fullness sometimes felt with an immediate high fiber diet. The doctor may also recommend taking a fiber product such as Citrucel or Metamucil once a day. In the past people with diverticulosis were to avoid nuts, corn, and seeds. This has not been foundto be true. If you find that certain foods create cramping or bloating, avoid that food. Foods high in fiber include: Fresh fruits, fresh vegetables, legumes (beans), whole wheat bread, bran muffins or cereal, and nuts. See the table below for examples of high fiber foods. Remember, your goal is 20- 35 grams per day. Amount of fiber in different foods Food Serving Grams of fiber Fruits Apple (with skin) 1 medium apple 4.4 Banana 1 medium banana 3.1 Oranges 1 orange 3.1 Prunes 1 cup, pitted 12.4 Juices Apple, unsweetened, w/added ascorbic acid 1 cup 0.5 Grapefruit, white, canned, sweetened 1 cup 0.2 Grape, unsweetened, w/added ascorbic acid 1 cup 0.5 Garfield 1 cup 0.7 Vegetables Cooked Green beans 1 cup 4.0 Carrots 1/2 cup sliced 2.3 Peas 1 cup 8.8 Potato (baked, with skin) 1 medium potato 3.8 Raw Monett (with peel) 1 cucumber 1.5 Lettuce 1 cup shredded 0.5 Tomato 1 medium tomato 1.5 Spinach 1 cup 0.7 Legumes Baked beans, canned, no salt added 1 cup 13.9 Kidney beans, canned 1 cup 13.6 Ontiveros beans, canned 1 cup 11.6 Lentils, boiled 1 cup 15.6 Breads, pastas, flours Bran muffins 1 medium muffin 5.2 Oatmeal, cooked 1 cup 4.0 White bread 1 slice 0.6 Whole-wheat bread 1 slice 1.9 Pasta and rice, cooked Macaroni 1 cup 2.5 Rice, brown 1 cup 3.5 Rice, white 1 cup 0.6 Spaghetti (regular) 1 cup 2.5 Nuts Almonds 1/2 cup 8.7 Peanuts 1/2 cup 7.9 Chart from UpDate 2013. SEEK IMMEDIATE MEDICAL CARE IF: You develop abdominal (belly) pain. An oral temperature above _ 101 F__develops. Repeated vomiting occurs. Blood is being passed in stools (bright red or black tarry stools). You develop any bowel problems or changes which you have not had before. Extra Information: To learn how much fiber and other nutrients are in different foods, visit the [place] Department of Agriculture (USDA) National Nutrient Database at: http://www.nal.usda.gov/fnic/foodcomp/search/ Created using data from the USDA National Nutrient Database for Standard Reference. Available at http://www.nal.usda.gov/fnic/foodcomp/search/. Information adapted from: [facility] Patient Information 2009 EGEN. [employer]otics 2012 [email or web address] 04/18/2022 08:32:55 Colonoscopy, Care After Surgery Salam (CUSTOM) Colonoscopy Care After Surgery Please read the instructions outlined below and refer to this sheet in the next few weeks. These discharge instructions provide you with general information on caring for yourself after you leave thespital. Your doctor may also give you specific instructions. While your treatment has been planned according to the most current medical practices available, unavoidable complications occasionally occur. If you have any problems or questions after discharge, please call your doctor. ACTIVITY You may resume your regular activity, but move at a slower pace for the next 24 hours. Take frequent rest periods for the next 24 hours. Walking will help get rid of the air and reduce the bloated feeling in your abdomen (belly). No driving for 24 hours (because of the anesthesia (medicine) used during the test). You may shower. Do not sign any important legal documents or operate any machinery for 24 hours (because of the anesthesia used during the test). NUTRITION Drink plenty of fluids. You may resume your normal diet as instructed by your doctor. Begin with a light meal and progress to your normal diet. Heavy or fried foods are harder to digestand may make you feel nauseated (sick to your stomach). Avoid alcoholic beverages for 24 hours or as instructed. MEDICATIONS You may resume your normal medications unless your doctor tells you otherwise. WHAT YOU CAN EXPECT TODAY Some feelings of bloating in the abdomen. Passage of more gas than usual. Spotting of blood in your stool or on the toilet paper. FOLLOW-UP Your doctor will discuss the results of your test with you. SEEK IMMEDIATE MEDICAL ATTENTION IF: There is more than a spotting of blood in your stool. There is abdominal distention (your abdomen is swollen). There is vomiting. You have a temperature over 101.5 F. There is abdominal pain or discomfort that is severe or gets worse throughout the day. Follow Up Care 03/25/2022 09:34:20 With:Bill COURTNEY Address: [address], [address] [place] [id number]- Business (1) When:7 to 10 days [facility]01-27-2023 NotePatient: DOMO PIÑA Age: 62 years Sex: Male : 1960 Associated Diagnoses: None Author: Bill COURTNEY MD Subjective no changes to H & PFThe Christ HospitalComment on above:Result Comment: Electronically Signed By: Bill COURTNEY MD\.br\Date and Time Signed: 04/18/22 07:54 [id number] Evaluation note* Encounter Date Diagnosis Assessment Notes Treatment Notes Treatment Clinical Notes Mar, HFrEF (heart failure with reduced ejection fraction) (ICD-10 - I50.20) [facility] Other 01-19-2023 Evaluation note* Encounter Date Diagnosis Assessment Notes Treatment Notes Treatment Clinical Notes Mar, Elevated cholesterol (ICD-10 - E78.00) Continued statin therapy. Healthy low fat, high fiber diet. Mar, HFrEF (heart failure with reduced ejection fraction) (ICD-10 - I50.20) Instructed on low salt diet, daily weights. Recommend referral to cardiology clinic for evaluation. Mar, Sinus tachycardia (ICD-10 - R00.0) Avoid stimulants: nicotine, caffiene and sudafed. 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 They are aware of the hazards associated with tobacco use, including but not limited to respiratory infections, vascular disease and cancers. Mar, Family history of coronary arteriosclerosis (ICD-10 - Z82.49) [facility] Other Evaluation + Plan note Future Appointments Appointment Date:04/11/2022 03:15:00 PM Scheduled Provider: Location:[facility] Appointment Type:Surgery PAT COVID Testing Appointment Date:04/18/2022 08:00:00 AM Scheduled Provider: [facility] Appointment Type:Surgery FT [facility] [place] Evaluation noteNo InformationN[facility] [place] Other History general Narrative - Reported* Type Description Date Medical History Positive colorectal cancer screening using Cologuard test Medical History Cigarette nicotine dependence, u ncomplicated Medical History COVID Medical History Screening PSA (prostate specific antigen) Medical History Depression screening Medical History Vasomotor rhinitis Medical History Acute bronchitis due to other sp ecified organisms Medical History ASHD (arteriosclerotic heart dis ease) Surgical History hernia repair Surgical History colonoscopy 04/2022 Surgical History LHC 04/2022 Hospitalization History see surgical history [facility] [place] Other Hospital course Narrative No data available for this section [facility] [place] Hospital Discharge instructions No data available for this section [facility] [place] Progress note No data available for this section [facility] [place] Summary Purpose Family History No Family History Records FoundNo Family History Records FoundNo Family History Records Found Advance Directives No Advanced Directives Records FoundNo Advanced Directives Records FoundNo Advanced Directives Records Found Additional Source Comments Patient Care team informatio n (unrecognized section and content) Personnel Name: VIJAY MCKEON DO Address: Address: [address] [place] [address] Personnel Name: VIJAY MCKEON DO Address: Address: [address] [place] [address] REASON FOR VISIT (unrecogniz ed section and content) Testing neededNo Information No Informationtest resultsNo InformationNo InformationNo InformationBack PainNo Information (unrecognized sect ion and content) No Status Records FoundNo Status Records FoundNo Status Records Found INFORMATION SOURCE (unrecogn ized section and content) DATE CREATED AUTHOR 07/23/2022 [facility] DATE CREATED AUTHOR AUTHOR'S ORGANIZ ATION 03/28/[address] [facility] DATE CREATED AUTHOR AUTHOR'S ORGANIZ ATION 07/20/2023 [facility] FOR RECORDS PERTAINING TO PATIENTS WHO ARE OR HAVE BEEN ENROLLED IN A CHEMICAL DEPENDENCY/SUBSTANCEABUSE PROGRAM, SOME INFORMATION MAY BE OMITTED. This clinical summary was aggregated from multiple sources. Caution should be exercised in using it in the provision of clinical care. This summary normalizes information from multiple sources, and as a consequence, information in this document may materially change the coding, format and clinical context of patient data. In addition, data may be omitted in some cases. CLINICAL DECISIONS SHOULD BE BASED ON THE PRIMARY CLINICAL RECORDS. [employer] provides no warranty or guarantee of the accuracy or completeness of information in this document.
--- NOTE | 2023-08-11 16:00 | CA_ITS ---
Patient Name: DOMO PIÑA MR#: [id number] : 1960 Exam Date: 08/11/2023 Ordering Doctor: YAEL OSORIO M.D. ECHOCARDIOGRAM REPORT PROCEDURE: CA ECHO DOPPLER COMPLETE INDICATIONS: Essential hypertension, Chronic systolic heart failure COMPARISON: None. DESCRIPTION: COMPLETE ECHOCARDIOGRAM Real-time transthoracic echocardiography with 2D, M-mode, spectral and color flow Doppler performed. QUALITY: Technical quality was good. LEFT VENTRICLE: Normal chamber size. Normal left ventricular wall thickness. LV EF: Global left ventricular systolic function is mildly reduced; visually estimated ejection fraction is 45 to 50%. The basal and mid inferolateral bassett are hypokinetic. The basal anterolateral wall is hypokinetic. Abnormal septal motion; may be related to underlying bundle branch block. DIASTOLIC: Grade 1 diastolic dysfunction. ATRIAL SEPTUM: Inadequately seen. LEFT ATRIUM: Normal chamber size. RIGHT ATRIUM: Normal chamber size. RIGHT VENTRICLE: Normal chamber size. Normal right ventricular systolic function. TRICUSPID VALVE: Normal mobility and thickness. No stenosis with trivial regurgitation. Unable to assess right-sided pressures due to lack of measurable tricuspid regurgitation. MITRAL VALVE: Normal mobility and thickness. No evidence of mitral valve stenosis. There is no mitral annular calcification. Trivial mitral regurgitation. AORTIC VALVE: Normal trileaflet appearance. Mildly calcified aortic valve with diminished mobility. Doppler velocity suggests no significant aortic valve stenosis. DVI 0.4. No aortic regurgitation. AORTIC ROOT: Normal diameter and appearance. PULMONIC VALVE: Normal thickness and mobility. No stenosis. No regurgitation. PERICARDIUM: Anterior free space; trivial effusion versus fat pad. IVC: Collapses with inspirations. Normal size. CONCLUSION: 1. Global left ventricular systolic function is mildly reduced; segmental wall motion abnormality seen 2. Normal right ventricular size and systolic function 3. Grade 1 diastolic dysfunction 4. No significant valvular abnormalities 5. Anterior free space; trivial effusion versus fat pad Adult Echocardiography Procedure Report Left Ventricle LVEDD (3.7 - 5.6 cm): 4.59 cm LVESD (2.2 - 4.0 cm): 3.49 cm LVIVS thickness (0.6 - 1.2 cm): 0.95 cm LVPW thickness (0.5 - 1.0 cm): 0.52 cm e': 0.11 m/s E - e': 5.28 LVOT Max Gradient: 1.74 mm[Hg] LVOT Area (cm2): 0.66 m/s Peak Velocity (LVOT): 0.66 m/s Mean Velocity (LVOT): 0.52 m/s LVOT Diameter 2.04 cm Left Atrium LA Volume Index (2D A2C): 25.39 ml/m2 Left Atrium Systolic Dimension: 3.30 cm Mitral Valve MV E to A Ratio: 0.95 Mitral Valve A-Wave Peak Velocity: 0.60 m/s Mitral Valve E-Wave Peak Velocity: 0.57 m/s Right Ventricle RV Internal Diastolic Dimension: 3.31 cm Aorta AO Root Diam: 3.12 cm Aortic Valve AoV Area (Peak Ildefonso): 1.82 cm2, 1.42 cm2 AoV Area (VTI): 1.90 cm2, 1.43 cm2 Peak Velocity(Antegrade Flow): 1.51 m/s, 0.85 m/s Peak Gradient(Antegrade Flow): 9.07 mm[Hg], 2.86 mm[Hg] Mean Velocity(Antegrade Flow): 1.00 m/s, 0.53 m/s Mean Gradient(Antegrade Flow): 4.53 mm[Hg], 1.32 mm[Hg] Velocity Time Integral: 31.84 cm, 16.10 cm Tricuspid Valve Peak Velocity (Regurgitant Flow): 2.38 m/s, 1.85 m/s, 1.70 m/s Pulmonic Valve Peak Velocity: 0.78 m/s Peak Gradient: 2.21 mm[Hg], 2.65 mm[Hg] Right Atrium Right Atrium Systolic Pressure: 24.91 ml, 24.91 ml Dictated by: Kanika Thompson M.D. on 08/12/2023 at 14:34 Approved by: Kanika Thompson M.D. on 08/12/2023 at 14:39
== END 2023-08-11 13:58 | disposition home or self-care (01) ==
LOC: CARD 13:57
PROVIDERS: PCP Internal Medicine; Visit Provider Internal Medicine Cardiovascular Disease
DX: I11.0 Hypertensive heart disease with heart failure (principal); I50.22 Chronic systolic (congestive) heart failure
CPT/HCPCS: 93306

== ENCOUNTER 2024-11-15 09:45 | Outpatient (OUT) | payer MEDICARE, SELFPAY ==
--- OUTSIDE RECORDS SUMMARY | 2024-11-14 08:00 | XMS_ITS | Encounter Summary ---
Author Organization [facility] Address [facility] [place] [address] Care Team Providers Care Management Professor Name Role Phone Unavailable Primary Care Provider Unavailabl e Source Comments In the event this information is protected by the Federal Confidentiality of Alcohol and Drug AbusePatient Records regulations: The Federal rules restrict any use of the information to criminally investigate or prosecute any alcohol or drug abuse patient.[facility] Reason for Referral * Consult, Test, Treat (Routine) - Pending Review Specialty Diagnoses / Procedures Referred By Mg marsh Referred To Contact Cardiology Diagnoses Pre-op evaluation Coronary artery disease involving [place] coronary artery of [place] heart without angina pectoris Procedures OFFICE/OUTPATIENT [facility] 60 MINUTES Demarcus Nino APRN.CNP [address] [place] [address] Phone: tel: fax: Referral ID Status Reason Start Date Expiration Date Visits Requested Visits Authorized [id number] Pending Review PCP Requested Referral 11/14/2024 11/14/2025 1 1 Reason for Visit * Reason Comments Pre-Op Visit Encounter Details Date Type Department Care Team (Late st Contact Info) Description 11/14/2024 8:00 AM EDT PAT Pre Anesthesia [address] [place] [address] 2, Pacc Main [address] [place] [id number] Pre-op evaluation (Primary Dx); Chronic systolic congestive heart failure (HCC); Coronary artery disease involving [place] coronary artery of [place] heart without angina pectoris; Former smoker; Hyperlipidemia, unspecified hyperlipidemia type; Hypertension, unspecified type; IFG (impaired fasting glucose) Social History Tobacco Use Types Packs/Day Years Used Date Smoking Tobacco: Former Cigarettes 1 47 0 11/26/1976 - 11/27/2023 Passive Smoke Exposure: Past Smokeless Tobacco: Never Tobacco Cessation:Counseling Given: Not Answered Alcohol Use Standard Drinks/Week Comments Not Currently 0 (1 standard drink = 0.6 oz pur e alcohol) Area Deprivation Index Answer Date Yrn rded National Score (1-100), lower number is lower ri sk 94 10/12/2024 State Score (1-10), lower number is lower risk 9 10/12/2024 Data from: https://www.neighborhoodatlas.medicine.[facility].edu/. Last address used for calculation [address] [facility] 10/12/2024 Sex and Gender Information Value Date Recorded Sex Assigned at Not on file Legal Sex Male 10:45 AM EDT Gender Identity Not on file Sexual Orientation Not on file documented as of this encounter Last Filed Vital Signs Vital Sign Reading Time Taken Comments Blood Pressure 135/84 11/14/2024 7:50 AM EDT Pulse 92 11/14/2024 7:50 AM EDT Temperature 36.3 C (97.3 F) 11/14/2024 7:50 AM EDT Respiratory Rate - - Oxygen Saturation 96% 11/14/2024 7:50 AM EDT Inhaled Oxygen Concentration - - Weight 64 kg (141 lb 1.5 oz) 11/14/2024 7:50 AM EDT Height 167.6 cm (5' 6 ) 11/14/2024 7:50 AM EDT Body Mass Index 22.77 11/14/2024 7:50 AM EDT documented in this encounter Patient Instructions * Patient Instructions* Demarcus Nino APRN.GREENKEEPER - 11/14/2024 8:43 AM EDT Images from the original note were not included. [facility]est[facility] PATIENT PREOPERATIVE INSTRUCTIONS Shantell Bennett MD has scheduled you for your procedure at this surgery center: [facility] Scheduling Office: [phone] --[address] [place] [address]. Please read below carefully for your personalized instructions. Dietary Restrictions: - No solid food after midnight. - You may have 12 ounces of clear liquids (water, clear juices such as apple juice or gatorade, carbonated beverages, clear tea, black coffee, jello) until 2 hours before scheduled arrival at facility. - FOLLOW UP WITH YOUR SURGEON. IF YOU ARE GIVEN BOWEL PREP INSTRUCTIONS FOLLOW THOSE INSTRUCTIONS INSTEAD OF ABOVE Medications: Unless instructed differently below, stay on all of your medications until your surgery. If you start any new medications after today's visit, please contact your surgeon. Pre-Surgery Med Instructions Medication Instructions ipratropium bromide (ATROVENT) 42 mcg (0.06 %) nasal spray Do not take the day of surgery spironolactone (ALDACTONE) 25 mg tablet Do not take the day of surgery losartan (COZAAR) 25 mg tablet If you normally take this medication in the morning, take the morning of surgery. metoprolol succinate ER (TOPROL XL) 100 mg If you normally take this medication in the morning, take the morning of surgery. atorvastatin (LIPITOR) 80 mg tablet If you normally take this medication in the morning, take the morning of surgery. aspirin, enteric coated (ASPIRIN, ENTERIC COATED) 81 mg EC tablet Hold 7 days before surgery. Last dose 11/28/24. If you take any medications for erectile dysfunction-Cialis (Tadalafil), Levitra, Staxyn (Vardenafil) Viagra (Sildenenafil please do not take these for 48 hours before surgery. If you start any new medications after today's visit, please contact the surgeon's office. If you are currently using a [id number] injectable or oral medication for diabetes or weight loss such as Dulaglutide (Trulicity), Exenatide (Byetta, Bydureon), Liraglutide (Victoza, Saxenda), Semaglutide (Ozempic, Wegovy, Rybelsus), or Tirzepatide (Mounjaro), the medicine should be stopped at least 7 days before surgery. These medicines can cause food to remain in your stomach for a very longtime and increase the risks from surgery and anesthesia. Not stopping the medication for a long enough time may result in your surgery being rescheduled. Blood Thinning Medications: - Stop NSAIDS (Ibuprofen, Advil, Aleve, Motrin, Celebrex, Mobic, etc.) 7 days before surgery, as directed by your surgeon. - Stop Aspirin 7 days before surgery, as directed by your surgeon. - Stop ALL herbal and dietary supplements 14 days before surgery. - You may take Tylenol (Acetaminophen) or any of your pain medications that do not contain aspirin or NSAIDS as needed. Important Reminders: - Candy, mints, and tobacco products are NOT permitted the morning of surgery. - Hearing aids, dentures and glasses may be worn the morning of surgery. - NO jewelry, body piercings, makeup, hairpins or contacts are to be worn the day of surgery. If you develop symptoms such as a fever, cold, or flu, or have other changes to your health within TWO DAYS of scheduled surgery or the morning of surgery, please contact the surgery center above. Personal Belongings: -Please have photo ID and insurance cards. -If you do not have a copy of advance directives on file with us, please bring a copy with you on the day of surgery. - Leave ALL valuables and money at home or with family members. - Please bring high-quality footwear, such as sneakers, to the hospital for ambulating post-surgery. Arrival Time for Surgery: - To obtain your arrival time for surgery, call your physician's office the day before your surgery. - If you have received different instructions about finding out your arrival time from your surgeon, please follow those instructions. - If your surgery is scheduled for Thursday, call the Thursday before. Your surgeon???s shot core drill operator helper will tell you what time to call the office. - If you have not reached the departmental shot core drill operator helper by 5 P.M., call [phone] after 5 P.M. the day before your surgery. Please be aware that emergency situations arise, which may delay or change your surgical time. If this happens, we will notify you as soon as possible and regret any inconvenience. If you already have an Advance Directive, please fax a copy to [phone] or email to for it to be added to your chart. If you do not have an Advance Directive, you can find the appropriate form and more information at [email or web address]. We recommend that youcomplete the Advance Directive form found on the website and bring it with you the day of your surgery. It can be witnessed and scanned into your chart that day. Demarcus Nino APRN.VICKIE documented in this encounter Plan of Treatment Upcoming Encounters Date Type Department Care Team (Latest Contact Info) Description 12/06/2024 9:01 AM EDT Hospital Encounter Admitting [address] [place] [id number] Shantell Bennett MD [address] [place] [phone] Diverticulitis [K57.92] 12/06/2024 9:01 AM EDT - 12/06/2024 1:21 PM EDT Surgery Admitting [address] [place] [address] Shantell Bennett MD [address] [place] [place] [phone] ROBOTIC LAPAROSCOPIC COLECTOMY SIGMOID COLON W/ COLORECTAL ANASTOMOSIS 01/04/2025 7:15 AM EDT Procedure Cardiology [address] [place] [address] DX PRE OP //CARDIAC EVALUTION 01/04/2025 8:15 AM EDT Office Visit Cardiology [address] [place] [address] Gio Overton MD [address] [place] [address] DX PRE OP //CARDIAC EVALUTION 04/03/2025 11:30 AM EST Procedure Pulmonary Medicine [address] [address] 2, Pulm Fct Lab [facility] [address] [place], [place] [phone] Chronic obstructive pulmonary disease, unspecified COPD type (HCC) [J44.9] 04/03/2025 12:00 PM EST Procedure Pulmonary Medicine [address] [place] [address] 5, Pulm Fct Lab [facility] [address] [place], [place] [phone] Chronic obstructive pulmonary disease, unspecified COPD type (HCC) [J44.9] 04/03/2025 12:15 PM EST Procedure Pulmonary Medicine [address] [place] [address] 9, Pulm Fct Lab [facility] [address] [place] [address] Chronic obstructive pulmonary disease, unspecified COPD type (HCC) [J44.9] 04/03/2025 12:30 PM EST Procedure Pulmonary Medicine [address] [place] [address] 10, Pulm Fct Lab [facility] [address] [place] [address] Chronic obstructive pulmonary disease, unspecified COPD type (HCC) [J44.9] 04/03/2025 1:00 PM EST Office Visit Pulmonary Medicine [address] [place] [address] Tari Bailon MD [address] [place] [address] Follow up 4 months Scheduled Procedures Name Priority Associated Diagnoses Date/Ti me ROBOTIC LAPAROSCOPIC COLECTO MY SIGMOID COLON W/ COLORECTAL ANASTOMOSIS Diverticulitis 12/06/2024 9:01 AM EDT Scheduled Referrals Name Type Priority Associated Diagnoses Orde r Schedule CONSULT TO CARDIOLOGY Referral Routine Pre-op evaluation Coronary artery disease involving [place] coronary artery of [place] heart without angina pectoris 1 Occurrences starting 11/14/2024 until 11/14/2025 documented as of this encounter Goals Goal Patient Goal Type Associated Problems Recent Progress Patient-Stated? 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 Range Aide Care Plan Colonoscopy Range Aide No Roxanna Haider Autogenerated Goal Care Plan Autogenerated Problem No Meghan Oakley documented as of this encounter Results * (ABNORMAL) HEMOGLOBIN A1C (11/14/2024 9:37 AM EDT) Hemoglobin A1C 6.0(H) 4.3 - 5.6 % 11/14/2024 4:48 PM EDT [facility] Comment:[place] Diabetes As sociation guidelines indicate that patients with HgbA1c in the range 5.7-6.4% are at increased risk for development of diabetes, and intervention by lifestyle modification may be beneficial. HgbA1c greater or equal to 6.5% is considered diagnostic of diabetes. Estimated Average Glucose 126 mg/dL 11/14/2024 4:48 PM EDT [facility] Comment:eAG: (Estimated aver age glucose) is a calculated value from HgbA1c and is procurement representative of the average blood glucose level in the last 2-3 month period. Blood BLOOD SPECIMEN / Unknown Venipuncture / Unknown 11/14/2024 9:37 AM EDT 11/14/2024 9:38 AM EDT us Demarcus Nino APRN.CNP LABORATORY F inal Result [facility] [address] [place] [address], documented in this encounter Visit Diagnoses Diagnosis Pre-op evaluation- Primary Preoperative examination, unspecified Chronic systolic congestive heart failure (HCC) Chronic systolic heart failure Coronary artery disease involving [place] coronary artery of [place] heart without angina pectoris Former smoker Personal history of tobacco use, presenting hazards to health Hyperlipidemia, unspecified hyperlipidemia type Hypertension, unspecified type IFG (impaired fasting glucose) Impaired fasting glucose Diverticulitis Diverticulitis of colon (without mention of hemorrhage) * Assessment & Plan Note - Demarcus Nino APRN.CNP - 11/14/2024 8:36 AM EDTAssociated Problem(s): IFG (impaired fasting glucose) A1C ordered * Assessment & Plan Note - Demarcus Nino APRN.VICKIE - 11/14/2024 8:35 AM EDTAssociated Problem(s): HTN (hypertension) Currently on metoprolol succinate ER, losartan (COZAAR) and spironolactone (ALDACTONE) BP this visit 135/84 Denies SOB, dizziness, lightheadedness, palpitations, syncope and chest pain * Assessment & Plan Note - Demarcus Nino APRN.CNP - 11/14/2024 8:34 AM EDTAssociated Problem(s): Hyperlipemia Currently on atorvastatin (LIPITOR) * Assessment & Plan Note - Demarcus Nino APRN.CNP - 11/14/2024 8:27 AM EDTAssociated Problem(s): Former smoker Former smoker X 40 years .5 PPD. 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 Tomasz Watkins, 08/01/24 04/28/2022 Cardiac cath noted showed occluded right coronary artery that was of small caliber and moderate disease in the left coronary system. He was recommended medical management. His LV systolic function is estimated around 40 to 45%. 08/11/2023 ECHO showed Global left regular systolic function is mildly reduced, segmental wall motion abnormality is seen and no significant valvular abnormalities. No stents Currently on BB, statin and low dose ASA * Assessment & Plan Note - Demarcus Nino APRN.VICKIE - 11/14/2024 8:12 AM EDTAssociated Problem(s): Chronic systolic congestive heart failure (HCC) Appointment to be seen by negin lloyd Denies chest pain, ankle swelling, orthopnea and PND. He denies palpitations, dizziness and syncope. Denies any increase in baseline Shortness of Breath. documented in this encounter Additional Health Concerns Active Problems Noted Date Diagnosed Date Colonoscopy Range Aide 10/31/2024 Autogenerated Problem 11/04/2024 documented as of this encounter
--- OUTSIDE RECORDS SUMMARY | 2024-11-14 09:10 | XMS_ITS | Encounter Summary ---
Author Organization [facility] Address [address] [place] [address] Care Team Providers Care Pole Frame Construction Worker Name Role Phone Unavailable Primary Care Provider Unavailabl e Source Comments In the event this information is protected by the Federal Confidentiality of Alcohol and Drug AbusePatient Records regulations: The Federal rules restrict any use of the information to criminally investigate or prosecute any alcohol or drug abuse patient.[facility] Reason for Visit * Outpatient Procedure (Routine) - Closed Specialty Diagnoses / Procedures Referred By Contac t Referred To [facility] Diagnoses Diverticulitis Procedures ECG COMPLETE ECG ROUTINE ECG W/LEAST 12 LDS W/I&R Shantell Bennett MD [address] [facility] [address] [address] Phone: tel: fax: Heart and Vascular [address] [address] Referral ID Status Reason Start Date Expiration Date V isits Requested Visits Authorized [id number] Closed Auto-Generate d Referral 10/12/2024 10/12/2025 1 1 Encounter Details Date Type Department Care Team (Late st Contact Info) Description 11/14/2024 9:10 AM EDT Procedure Cardiology [address] [address] Social History Tobacco Use Types Packs/Day Years Used Date Smoking Tobacco: Former Cigarettes 1 47 0 11/26/1976 - 11/27/2023 Passive Smoke Exposure: Past Smokeless Tobacco: Never Alcohol Use Standard Drinks/Week Comments Not Currently 0 (1 standard drink = 0.6 oz pur e alcohol) Area Deprivation Index Answer Date Yrn rded National Score (1-100), lower number is lower ri sk 94 10/12/2024 State Score (1-10), lower number is lower risk 9 10/12/2024 Data from: https://www.neighborhoodatlas.medicine.[facility].edu/. Last address used for calculation [address] [place] 10/12/2024 Sex and Gender Information Value Date Recorded Sex Assigned at Not on file Legal Sex Male 10:45 AM EDT Gender Identity Not on file Sexual Orientation Not on file documented as of this encounter Plan of Treatment Upcoming Encounters Date Type Department Care Team (Latest Contact Info) Description 12/06/2024 9:01 AM EDT Hospital Encounter Admitting [address] [place] [address] Shantell Bennett MD [address] [address] Diverticulitis [K57.92] 12/06/2024 9:01 AM EDT - 12/06/2024 1:21 PM EDT Surgery Admitting [address] [place] [address] Shantell Bennett MD [address] [address] ROBOTIC LAPAROSCOPIC COLECTOMY SIGMOID COLON W/ COLORECTAL ANASTOMOSIS 01/04/2025 7:15 AM EDT Procedure Cardiology [address] [place] [address] DX PRE OP //CARDIAC EVALUTION 01/04/2025 8:15 AM EDT Office Visit Cardiology [address] [place] [phone] Gio Overton MD [address] [place] [address] DX PRE OP //CARDIAC EVALUTION 04/03/2025 11:30 AM EST Procedure Pulmonary Medicine [address] [place] [address], Pulm Fct Lab [facility] [address] [place] [place], [place] [phone] Chronic obstructive pulmonary disease, unspecified COPD type (HCC) [J44.9] 04/03/2025 12:00 PM EST Procedure Pulmonary Medicine [address] [place] [phone], Pulm Fct Lab [facility] [address] [place], [place] [phone] Chronic obstructive pulmonary disease, unspecified COPD type (HCC) [J44.9] 04/03/2025 12:15 PM EST Procedure Pulmonary Medicine [address] [place] [address], Pulm Fct Lab Main [address] [place] [address] Chronic obstructive pulmonary disease, unspecified COPD type (HCC) [J44.9] 04/03/2025 12:30 PM EST Procedure Pulmonary Medicine [address] [place] [address], Pulm Fct Lab Main [address] [place], [place] [phone] Chronic obstructive pulmonary disease, unspecified COPD type (HCC) [J44.9] 04/03/2025 1:00 PM EST Office Visit Pulmonary Medicine [address] [place] [address] Tari Bailon MD [address] [place] [address] Follow up 4 months Pending Results Name Type Priority Associated Diagnoses Date /Time ECG COMPLETE ECG Routine Diverticulitis 11/14/2024 9:17 AM EDT Scheduled Procedures Name Priority Associated Diagnoses Date/Ti me ROBOTIC LAPAROSCOPIC COLECTO MY SIGMOID COLON W/ COLORECTAL ANASTOMOSIS Diverticulitis 12/06/2024 9:01 AM EDT documented as of this encounter Goals Goal Patient Goal Type Associated Problems Recent Progress Patient-Stated? 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 Patrol Inspector Care Plan Colonoscopy Patrol Inspector No Meliza, Gerrijoycet Autogenerated Goal Care Plan Autogenerated Problem No Meghan Oakley documented as of this encounter Procedures Procedure Name Priority Date/Time Associated Diagnosis Comments ECG COMPLETE Routine 11/14/2024 9:17 AM EDT Diverticulitis documented in this encounter Visit Diagnoses Diagnosis Diverticulitis Diverticulitis of colon (without mention of hemorrhage) Diverticulitis Diverticulitis of colon (without mention of hemorrhage) documented in this encounter Additional Health Concerns Active Problems Noted Date Diagnosed Date Colonoscopy Patrol Inspector 10/31/2024 Autogenerated Problem 11/04/2024 documented as of this encounter
--- OUTSIDE RECORDS SUMMARY | 2024-11-14 09:57 | XMS_ITS | Encounter Summary ---
Author Organization [facility] Address [address] [place] [id number] Care Team Providers Care Ecology Teacher Name Role Phone Unavailable Primary Care Provider Unavailabl e Source Comments In the event this information is protected by the Federal Confidentiality of Alcohol and Drug AbusePatient Records regulations: The Federal rules restrict any use of the information to criminally investigate or prosecute any alcohol or drug abuse patient.[facility] Reason for Referral * Outpatient Procedure (Routine) - Closed Specialty Diagnoses / Procedures Referred By Contac t Referred To Contact [facility] Diagnoses Diverticulitis Screening for malignant neoplasm of colon Procedures COLONOSCOPY SCREENING COLONOSCOPY FLX DX W/COLLJ SPEC WHEN PFRMD Janice Franco APRN.CLINICAL PROJECT COORDINATOR [address] [place] [address] Phone: tel: fax: [facility] [address] [place] [id number] Referral ID Status Reason Start Date Expiration Date V isits Requested Visits Authorized [id number] Closed Auto-Generate d Referral 10/13/2024 10/13/2025 1 1 Reason for Visit * Outpatient Procedure (Routine) - Closed Specialty Diagnoses / Procedures Referred By Mg marsh Referred To Contact [facility] Diagnoses Diverticulitis Screening for malignant neoplasm of colon Procedures COLONOSCOPY SCREENING COLONOSCOPY FLX DX W/COLLJ SPEC WHEN PFRMD Janice Franco APRN.CNP [address] [place] [address] Phone: tel: fax: [facility] [address] [place] [address] Referral ID Status Reason Start Date Expiration Date V isits Requested Visits Authorized [id number] Closed Auto-Generate d Referral 10/13/2024 10/13/2025 1 1 Encounter Details Date Type Department Care Team (Late st Contact Info) Description 11/14/2024 9:57 AM EDT - 11/14/2024 1:14 PM EDT Hospital Encounter Gastroenterology [address] [place] [address] Bridgette Joseph MD [address] [place] [address] Diverticulitis [K57.92] Discharge Disposition: Home Social History Tobacco Use Types Packs/Day Years [...] is lower risk 9 10/12/2024 Data from: https://www.neighborhoodatlas.medicine.[facility].edu/. Last address used for calculation [address] 10/12/2024 Sex and Gender Information Value Date Recorded Sex Assigned at Not on file Legal Sex Male 10:45 AM EDT Gender Identity Not on file Sexual Orientation Not on file documented as of this encounter Last Filed Vital Signs Vital Sign Reading Time Taken Comments Blood Pressure 139/78 11/14/2024 1:00 PM EDT Pulse 86 11/14/2024 1:00 PM EDT Temperature 36 C (96.8 F) 11/14/2024 11:12 AM EDT Respiratory Rate 16 11/14/2024 1:00 PM EDT Oxygen Saturation 96% 11/14/2024 1:00 PM EDT Inhaled Oxygen Concentration - - Weight 64 kg (141 lb) 11/14/2024 11:12 AM EDT Height 167.6 cm (5' 6 ) 11/14/2024 11:12 AM EDT Body Mass Index 22.76 11/14/2024 11:12 AM EDT documented in this encounter Medications at Time of Discharge ipratropium bromide (ATROVENT) 42 mcg (0.06 %) nasal spray instill 2 (TWO) sprays IN EACH NOSTRIL 3 TO 4 times daily 10/14/2024 spironolactone (ALDACTONE) 25 mg tablet Take 25 mg by mouth every morning. losartan (COZAAR) 25 mg tablet Take 25 mg by mouth once daily. metoprolol succinate ER (TOPROL XL) 100 mg 100 mg once daily. atorvastatin (LIPITOR) 80 mg tablet Take 80 mg by mouth daily at bedtime. aspirin, enteric coated (ASPIRIN, ENTERIC COATED) 81 mg EC tablet Take 81 mg by mouth once daily. peg 3350-Electrolyte s (GOLYTELY) 236-22.74-6.74 -5.86 gram suspension Refer to printed prep instructions from your provider. 4000 mL 11/14/2024 amoxicillin-clav ulanate potassium (AUGMENTIN) 875-125 mg per tablet Take 1 tablet by mouth every 12 hours. 10/07/2024 neomycin 500 mg tablet Take 2 tablets by mouth at 9pm and take 2 tablets by mouth at 11pm the night before surgery. Patient should start on December 05, 2024. 4 tablet 12/05/2024 metroNIDAZOLE (FLAGYL) 500 mg tablet Take 1 tablet by mouth at 9pm and take 1 tablet by mouth at 11pm the night before surgery. Patient should start on December 05, 2024. 2 tablet 12/05/2024 documented as of this encounter H&P Notes * Sonal Hampton MD - 11/14/2024 11:00 AM EDT PROCEDURAL SEDATION HISTORY AND PHYSICAL EXAM SERVICE DATE: 11/14/2024 SERVICE TIME: 1219 Subjective HPI: This is a 64 year old male who presents with History of diverticulitis PAST ANESTHESIA HISTORY:No history of adverse event PAST MEDICAL HISTORY Diagnosis Date CHF (congestive heart failure) (HCC) Diverticulitis w/ perforation and abscess Former smoker 11/14/2024 HTN (hypertension) 11/14/2024 Hyperlipemia 11/14/2024 PAST SURGICAL HISTORY Procedure Laterality Date PAST SURGICAL HISTORY OF Hernia Repair Prior to Admission medications as of 11/14/24 0841 Medication Sig Last Dose Taking ipratropium bromide (ATROVENT) 42 mcg (0.06 %) nasal spray instill 2 (TWO) sprays IN EACH NOSTRIL 3TO 4 times daily spironolactone (ALDACTONE) 25 mg tablet Take 25 mg by mouth every morning. losartan (COZAAR) 25 mg tablet Take 25 mg by mouth once daily. metoprolol succinate ER (TOPROL XL) 100 mg 100 mg once daily. atorvastatin (LIPITOR) 80 mg tablet Take 80 mg by mouth daily at bedtime. amoxicillin-clavulanate potassium (AUGMENTIN) 875-125 mg per tablet Take 1 tablet by mouth every 12hours. aspirin, enteric coated (ASPIRIN, ENTERIC COATED) 81 mg EC tablet Take 81 mg by mouth once daily. peg 3350-Electrolytes (GOLYTELY) 236-22.74-6.74 -5.86 gram suspension Refer to printed patient instructions that will be mailed to you. Patient should start on November 13, 2024. peg 3350-Electrolytes (GOLYTELY) 236-22.74-6.74 -5.86 gram suspension Refer to printed patient instructions that will be mailed to you. Patient should start on December 05, 2024. neomycin 500 mg tablet Take 2 tablets by mouth at 9pm and take 2 tablets by mouth at 11pm the nightbefore surgery. Patient should start on December 05, 2024. metroNIDAZOLE (FLAGYL) 500 mg tablet Take 1 tablet by mouth at 9pm and take 1 tablet by mouth at 11pm the night before surgery. Patient should start on December 05, 2024. ALLERGIES Allergen Reactions Lisinopril Hives Morphine Other: See Comments Broke out in Sweats CARDIOVASCULAR:No chest pain, leg swelling and palpitations PULMONARY:No cough,wheezing and shortness of breath Objective PHYSICAL EXAM: (Site of previous drain in LLQ evident with some stool/air drainage noted.) AIRWAY: Mouth opening greater than 3 fingerbreadths: Yes Neck Full Range of Motion: Yes LUNGS: Good diaphragmatic excursion CARDIAC: ,Regular rate Participation of a fellow, resident, medical student, or advanced practice provider student in performing the sensitive examination was discussed with the patient or authorized sales and merchandising representative. The patient or authorized sales and merchandising representative has agreed to proceed with the sensitive examination. Assessment/Plan ASA Class: 2 Patient OK for Sedation: Yes Sedation Goal: Moderate Discussed case with Dr. Vasquez given the non-healing drain site and leukocytosis. He agrees with proceeding with colonoscopy today. Provisional Diagnosis/Treatment Plan: History of diverticulitis/ Colonoscopy Sedation Goal: Moderate SIGNATURE: Sonal Hampton MD PATIENT NAME: Erasto Diaz DATE: November 14, 2024 TIME: 11:54 AM Created 2023 documented in this encounter Nursing Notes * Juana Pierre RN - 11/14/2024 12:44 PM EDT AMBULATORY PATIENT EDUCATION NOTE TOPIC: GI PROCEDURES: Colonoscopy with or without biopsies based on clinical findings READINESS TO LEARN INSTRUCTION PROVIDED TO: Patient, readness to learn accessed prior to procedure and Family member COGNITIVE ABILITY: Alert and oriented PTED MOTIVATION TO LEARN: Eager Interested FAMILY SUPPORT: High - Very involved in pt care IPATIENT LEARNS BEST BY: Individual Instruction Written Instruction - Hand-outs Verbal Instruction FACTORS AFFECTING LEARNING: None PHYSICAL LIMITATIONS AFFECTING LEARNING: None LEARNING RESPONSE METHOD OF INSTRUCTION: Individual instruction PATIENT / FAMILY RESPONSE: Verbalizes understanding of: WORSENING CONDITION- Signs and symptoms of aworsening condition that warrant a call to the physician FOLLOW-UP PLAN: Complete - No need for follow-up SUPPLEMENTAL MATERIAL: Procedure Discharge Instructions REFERRAL (RECOMMENDATION): None * Mely Castellon RN - 11/14/2024 11:02 AM EDT PRE OP LEARNING ASSESSMENT PROCEDURE/SURGERY: GI PROCEDURES: Colonoscopy READINESS TO LEARN COGNITIVE ABILITY: Alert and oriented MOTIVATION TO LEARN: Interested FAMILY SUPPORT: Moderate - Family present but overwhelmed PATIENT LEARNS BEST BY: Individual Instruction Verbal Instruction FACTORS AFFECTING LEARNING: None PHYSICAL LIMITATIONS AFFECTING LEARNING: None Electronically Signed By: Mely Castellon RN In Department: GASTROENTEROLOGY documented in this encounter Miscellaneous Notes * Sedation Documentation - Maria De Jesus Jones RN - 11/14/2024 12:33 PM EDT Procedure aborted for need of MAC. * Sedation Documentation - Maria De Jesus Jones RN - 11/14/2024 12:29 PM EDT Scope changed to GIF. documented in this encounter Plan of Treatment Upcoming Encounters Date Type Department Care Team (Latest Contact Info) Description 12/06/2024 9:01 AM EDT Hospital Encounter Admitting [address] [place] [address] Shantell Bennett MD [address] [address] Diverticulitis [K57.92] 12/06/2024 9:01 AM EDT - 12/06/2024 1:21 PM EDT Surgery Admitting [address] [place] [address] Shantell Bennett MD [address] [address] ROBOTIC LAPAROSCOPIC COLECTOMY SIGMOID COLON W/ COLORECTAL ANASTOMOSIS 01/04/2025 7:15 AM EDT Procedure Cardiology [address] [place] [address] DX PRE OP //CARDIAC EVALUTION 01/04/2025 8:15 AM EDT Office Visit Cardiology [address] [place] [address] Gio Overton MD [address] [facility] [address] [place] [address] DX PRE OP //CARDIAC EVALUTION 04/03/2025 11:30 AM EST Procedure Pulmonary Medicine [address] [address], Pulm Fct Lab [facility] [address] [place], [place] [id number] Chronic obstructive pulmonary disease, unspecified COPD type (HCC) [J44.9] 04/03/2025 12:00 PM EST Procedure Pulmonary Medicine [address] [address], Pulm Fct Lab [facility] [address] [place] [address] Chronic obstructive pulmonary disease, unspecified COPD type (HCC) [J44.9] 04/03/2025 12:15 PM EST Procedure Pulmonary Medicine [address] [address], Pulm Fct Lab Main [address] [place] [address] Chronic obstructive pulmonary disease, unspecified COPD type (HCC) [J44.9] 04/03/2025 12:30 PM EST Procedure Pulmonary Medicine [address] [address], Pulm Fct Lab Main [address] [place] [address] Chronic obstructive pulmonary disease, unspecified COPD type (HCC) [J44.9] 04/03/2025 1:00 PM EST Office Visit Pulmonary Medicine [address] [address] Tari Bailon MD [address] [place] [address] Follow up 4 months Scheduled Procedures Name Priority Associated Diagnoses Date/Ti me ROBOTIC LAPAROSCOPIC COLECTO MY SIGMOID COLON W/ COLORECTAL ANASTOMOSIS Diverticulitis 12/06/2024 9:01 AM EDT documented as of this encounter Goals Goal Patient Goal Type Associated Problems Recent Progress Patient-Stated? 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 Plant Physiology Teacher Care Plan Colonoscopy Plant Physiology Teacher No Meliza, Gerrihart Autogenerated Goal Care Plan Autogenerated Problem No Meghan Oakley documented as of this encounter Procedures Procedure Name Priority Date/Time Associated Diagnosis Comments COLONOSCOPY SCREENING Routine 11/14/2024 11:53 AM EDT Diverticulitis Screening for malignant neoplasm of colon documented in this encounter Results * COLONOSCOPY SCREENING (11/14/2024 11:53 AM EDT) Anatomical Region Laterality Modality Other 11/14/2024 11:5 3 AM EDT Narrative 11/14/2024 12:43 PM EDT A31 Gastrointestinal Endoscopy Patient Name: Erasto Diaz Procedure Date: 11/14/2024 11:53 AM Date of : 1960 Admit Type: Outpatient Age: 64 Room: [address] Gender: Male Note Status: Finalized Attending MD: Bridgette Joseph MD, [id number] Procedure: Colonoscopy Indications: Abnormal CT of the GI tract with complicated diverticulitis and history of +cologuard with prior incomplete colonoscopy 2/2 sigmoid mobility restriction Providers: Bridgette Joseph MD, Sonal Hampton (Fellow) Patient Profile: This is a 64 year old male. Refer to note in patient chart for documentation of history and physical. Last Colonoscopy: 2022. Referring Physician: Janice Franco (Referring MD) Medicines: Fentanyl 75 micrograms IV, Midazolam 3 mg IV Complications: No immediate complications. Requesting Provider: Procedure: Pre-Anesthesia Assessment: - Prior to the procedure, a History and Physical was performed, and patient medications and allergies were reviewed. The patient's tolerance of previous anesthesia was also reviewed. The risks and benefits of the procedure and the sedation options and risks were discussed with the patient. All questions were answered, and informed consent was obtained. Prior Anticoagulants: The patient has taken no anticoagulant or antiplatelet agents. ASA Grade Assessment: II - A patient with mild systemic disease. After reviewing the risks and benefits, the patient was deemed in satisfactory condition to undergo the procedure. After I obtained informed consent, the scope was passed under direct vision. Throughout the procedure, the patient's blood pressure, pulse, and oxygen saturations were monitored continuously. The Colonoscope was introduced through the anus with the intention of advancing to the cecum. The scope was advanced to the sigmoid colon before the procedure was aborted. Medications were given. The colonoscopy was technically difficult and complex due to restricted mobility of the colon and the patient's discomfort during the procedure. The patient tolerated the procedure poorly due to the patient's discomfort during the procedure. The GIF-[id number] was introduced through the anus and advanced to. No anatomical landmarks were photographed. The quality of the bowel preparation was adequate. Moderate Sedation: The administration of moderate sedation was initiated at 12:18. Moderate (conscious) sedation was administered by the nurse and supervised by the endoscopist. The patient's oxygen saturation, heart rate, blood pressure and response to care were monitored. Findings: Hemorrhoids were found on perianal exam. Diverticula were found in the sigmoid colon. The sigmoid colon had restricted mobility and patient had significant discomfort with passage of the scope. Exchanged pediatric colonoscope for upper endoscope but patient still with significant discomfort so procedure aborted at 30 cm. Impression: - Hemorrhoids found on perianal exam. - Diverticulosis in the sigmoid colon. - The sigmoid colon had restricted mobility and patient had significant discomfort with passage of the scope. Exchanged scope for upper endoscope but patient still with significant discomfort so procedure aborted at 30 cm. - No specimens collected. Estimated Blood Loss: Estimated blood loss: none. Recommendation: - Patient has a contact number available for emergencies. The signs and symptoms of potential delayed complications were discussed with the patient. Return to normal activities tomorrow. Written discharge instructions were provided to the patient. - Resume previous diet. - Continue present medications. - Repeat attempt at colonoscopy with MAC given importance for surgical planning. - Low threshhold for further evaluation in the ED if worsening symptoms given abdominal discomfort and leukocytosis on presentation for colonoscopy - Return to referring provider as previously scheduled. Attending Participation: I was present and participated during the entire procedure, including non-ye portions. Scope In: 12:21:47 PM Scope Out: 12:31:48 PM Bridgette Joseph MD 11/14/2024 12:40:34 PM Number of Addenda: 0 Note Initiated On: 11/14/2024 11:53 AM Janice Franco APRN.CLINICAL PROJECT COORDINATOR [facility] Final Result documented in this encounter Visit Diagnoses Diagnosis Diverticulitis Diverticulitis of colon (without mention of hemorrhage) Screening for malignant neoplasm of colon Diverticulitis Diverticulitis of colon (without mention of hemorrhage) documented in this encounter Administered Medications Inactive Administered Medications - up to 3 most recent administrations Medication Order MAR Action Action Date Dose Rate Site fentaNYL 50 mcg/mL injection (SUBLIMAZE) INTRAVENOUS, X (OR/PROCEDURE) PRN, Starting on Thu11/14/24 at 1218, Until Thu11/14/24 at 1221, Intraprocedure Given 11/14/2024 12:21 PM EDT 25 mcg Given 11/14/2024 12:18 PM EDT 50 mcg midazolam (PF) injection (VERSED) INTRAVENOUS, X (OR/PROCEDURE) PRN, Starting on Thu11/14/24 at 1218, Until Thu11/14/24 at 1221, Intraprocedure Given 11/14/2024 12:21 PM EDT 1 mg Given 11/14/2024 12:18 PM EDT 2 mg NaCl 0.9% iv infusion INTRAVENOUS, X (OR/PROCEDURE) CONTINUOUS, Starting on Thu11/14/24 at 1224, Until Thu11/14/24 at 1224, Intraprocedure New Bag/Syringe/Bottle 11/14/2024 12:24 PM EDT 500 mL documented in this encounter Additional Health Concerns Active Problems Noted Date Diagnosed Date Colonoscopy Plant Physiology Teacher 10/31/2024 Autogenerated Problem 11/04/2024 documented as of this encounter
--- OUTSIDE RECORDS SUMMARY | 2024-11-14 13:15 | XMS_ITS | Encounter Summary ---
Author Organization [facility] Address [address] [place] [id number] Care Team Providers Care [employer] Teacher Name Role Phone Unavailable Primary Care Provider Unavailabl e Source Comments In the event this information is protected by the Federal Confidentiality of Alcohol and Drug AbusePatient Records regulations: The Federal rules restrict any use of the information to criminally investigate or prosecute any alcohol or drug abuse patient.[facility] Reason for Visit * Reason Comments Radio Gen A21 Encounter Details Date Type Department Care Team (Latest Contact Info) Description 11/14/2024 1:15 PM EDT - 11/14/2024 11:59 PM EDT Hospital Encounter Radiology [address] [address] Shortness of breath [R06.02] Discharge Disposition: Home Social History Tobacco Use [...] is lower risk 9 10/12/2024 Data from: https://www.neighborhoodatlas.medicine.[facility]/. Last address used for calculation [address] 10/12/2024 Sex and Gender Information Value Date Recorded Sex Assigned at Not on file Legal Sex Male 10:45 AM EDT Gender Identity Not on file Sexual Orientation Not on file documented as of this encounter Medications at Time of Discharge [...] instructions from your provider. 4000 mL 11/14/2024 glycopyrrolate-f ormoterol (BEVESPI AEROSPHERE) 9-4.8 mcg Inhale 2 puffs as instructed two times a day. 10.7 g 5 11/14/2024 amoxicillin-clav ulanate potassium (AUGMENTIN) 875-125 mg [...] tablet 12/05/2024 documented as of this encounter Progress Notes * Janine Chance Tech - 11/14/2024 1:20 PM EDT Radiology Service Progress Note PATIENT NAME: Erasto Diaz DATE OF SERVICE: November 14, 2024 TIME: 1:58 PM PATIENT IDENTITY VERIFICATION COMPLETED USING TWO (2) IDENTIFIERS: Name and Date of confirmedby patient verbally. FALL SCREENING: Has the patient had 2 falls in the last year or 1 fall with injury or currently using an Ambulatory Assistive Device (Walker, Cane, Wheelchair, Crutches, etc.)? No PATIENT GENDER DATA: Assigned male at PATIENT RELEVANT IMPLANT DATA REVIEWED: Not Applicable PATIENT PRESENTS WITH AN IMPLANTABLE OR ATTACHED CLAMPER: No RADIOLOGY DEPARTMENT: General X-ray: Exam(s) Completed: Chest X-Ray PERIPHERAL IV DATA: Not applicable SIGNED BY: Heriberto Abreu November 14, 2024 1:58 PM documented in this encounter Plan of Treatment Upcoming Encounters Date Type Department Care Team (Latest Contact Info) Description 12/06/2024 9:01 AM EDT Hospital Encounter Admitting [address] [place] [address] Shantell Bennett MD [address] [place] [id number] Diverticulitis [K57.92] 12/06/2024 9:01 AM EDT - 12/06/2024 1:21 PM EDT Surgery Admitting [address] [place] [address] Shantell Bennett MD [address] [place] [id number] ROBOTIC LAPAROSCOPIC COLECTOMY SIGMOID COLON W/ COLORECTAL ANASTOMOSIS 01/04/2025 7:15 AM EDT Procedure Cardiology [address] [place] [id number] DX PRE OP //CARDIAC EVALUTION 01/04/2025 8:15 AM EDT Office Visit Cardiology [address] [place] [address] Gio Overton MD [address], [address] [place] [address] DX PRE OP //CARDIAC EVALUTION 04/03/2025 11:30 AM EST Procedure Pulmonary Medicine [address] [place] [phone], Pulm Fct Lab [facility] [address] [place] [address] Chronic obstructive pulmonary disease, unspecified COPD type (HCC) [J44.9] 04/03/2025 12:00 PM EST Procedure Pulmonary Medicine [address] [place] [id number], Pulm Fct Lab [facility] [address] [place], [place] [id number] Chronic obstructive pulmonary disease, unspecified COPD type (HCC) [J44.9] 04/03/2025 12:15 PM EST Procedure Pulmonary Medicine [address] [place] [id number] 9, Pulm Fct Lab Main [address] [place] [address] Chronic obstructive pulmonary disease, unspecified COPD type (HCC) [J44.9] 04/03/2025 12:30 PM EST Procedure Pulmonary Medicine [address] [place] [address] 10, Pulm Fct Lab Main [address] [place] [address] Chronic obstructive pulmonary disease, unspecified COPD type (HCC) [J44.9] 04/03/2025 1:00 PM EST Office Visit Pulmonary Medicine [address] [place] [address] Tari Bailon MD [address] [place] [address] Follow up 4 months Scheduled Procedures Name Priority Associated Diagnoses Date/Ti me ROBOTIC LAPAROSCOPIC COLECTO MY SIGMOID COLON W/ COLORECTAL ANASTOMOSIS Diverticulitis 12/06/2024 9:01 AM EDT documented as of this encounter Goals Goal Patient Goal Type Associated Problems Recent Progress Patient-Stated? 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 Colonoscopy Heavy Equipment Plumbing Supervisor No User, Gerrihart Autogenerated Goal Care Plan Autogenerated Problem No Meghan Oakley documented as of this encounter Procedures Procedure Name Priority Date/Time Associated Diagnosis Comments XR CHEST 2V FRONTAL/LAT Routine 11/14/2024 1:56 PM EDT Shortness of breath documented in this encounter Results * XR CHEST 2V FRONTAL/LAT (11/14/2024 1:56 PM EDT) Anatomical Region Laterality Modality Chest Other 11/14/2024 1:56 PM EDT Impressions 11/14/2024 6:38 PM EDT IMPRESSION: Severe emphysema with upper lobe predominance and chronic airway inflammatory changes with bronchial wall thickening in both lungs. No acute radiographic abnormality. Cosmetologist: AMARJIT Transcribe Date/Time: Nov 14 2024 6:35P Dictated by : ROSA ELENA TERRAZAS MD This examination was interpreted and the report reviewed and electronically signed by: ROSA ELENA TERRAZAS MD on Nov 14 2024 6:36PM EST Narrative 11/14/2024 6:38 PM EDT * * *Final Report* * * DATE OF EXAM: Nov 14 2024 1:56PM AOX 5291 - XR CHEST 2V FRONTAL/LAT / PROCEDURE REASON: Shortness of breath * * * * Physician Interpretation * * * * EXAMINATION: CHEST RADIOGRAPH (2 VIEW FRONTAL & LATERAL) CLINICAL HISTORY: Shortness of breath MQ: XC2_6 EXAM DATE/TIME: 11/14/2024 1:56 PM COMPARISON: No relevant prior studies available. RESULT: Lines, tubes, and devices: None. Lungs and pleura: Severe emphysema with upper lobe predominance. Diffuse bronchial wall thickening in both lungs. No consolidation. Linear atelectasis in the bilateral lower lobes. No pleural effusion. No pneumothorax. Cardiomediastinal silhouette: Normal cardiomediastinal silhouette. Bones and soft tissues: Osteopenia with mild loss of height in multiple thoracic vertebrae. Procedure Note Provider, [facility] [place] - 11/14/2024 * * *Final Report* * * DATE OF EXAM: Nov 14 2024 1:56PM AOX 5291 - XR CHEST 2V FRONTAL/LAT / PROCEDURE REASON: Shortness of breath * * * * Physician Interpretation * * * * EXAMINATION: CHEST RADIOGRAPH (2 VIEW FRONTAL & LATERAL) CLINICAL HISTORY: Shortness of breath MQ: XC2_6 EXAM DATE/TIME: 11/14/2024 1:56 PM COMPARISON: No relevant prior studies available. RESULT: Lines, tubes, and devices: None. Lungs and pleura: Severe emphysema with upper lobe predominance. Diffuse bronchial wall thickening in both lungs. No consolidation. Linear atelectasis in the bilateral lower lobes. No pleural effusion. No pneumothorax. Cardiomediastinal silhouette: Normal cardiomediastinal silhouette. Bones and soft tissues: Osteopenia with mild loss of height in multiple thoracic vertebrae. IMPRESSION IMPRESSION: Severe emphysema with upper lobe predominance and chronic airway inflammatory changes with bronchial wall thickening in both lungs. No acute radiographic abnormality. 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
--- OUTSIDE RECORDS SUMMARY | 2024-11-14 13:30 | XMS_ITS | Encounter Summary ---
Author Organization [facility] Address [address] [place] [id number] Care Team Providers Care Tin Cutter Name Role Phone Unavailable Primary Care Provider Unavailabl e Source Comments In the event this information is protected by the Federal Confidentiality of Alcohol and Drug AbusePatient Records regulations: The Federal rules restrict any use of the information to criminally investigate or prosecute any alcohol or drug abuse patient.[facility] Reason for Visit * Reason Comments Spirometry * Outpatient Procedure (Routine) - Closed Specialty Diagnoses / Procedures Referred By Contac t Referred To Contact [facility] Diagnoses Shortness of breath Procedures SPIROMETRY WITH DILATOR IF OBSTRUCTED BRNCDILAT RSPSE SPMTRY PRE&POST-BRNCDILAT ADMN Tari Bailon MD [address] [place] [address] Phone: tel: fax: [facility] [place] [address] [place] [id number] Referral ID Status Reason Start Date Expiration Date V isits Requested Visits Authorized [id number] Closed Auto-Generate d Referral 10/13/2024 11/12/2025 1 1 Encounter Details Date Type Department Care Team (Late st Contact Info) Description 11/14/2024 1:30 PM EDT Procedure Pulmonary Medicine [address] [address] Laura Bergeron Fct Lab Main 6 [facility] [address] [place] [address] Spirometry Social History Tobacco Use Types Packs/Day Years [...] is lower risk 9 10/12/2024 Data from: https://www.neighborhoodatlas.[facility]/. Last address used for calculation [address] 10/12/2024 Sex and Gender Information Value Date Recorded Sex Assigned at Not on file Legal Sex Male 10:45 AM EDT Gender Identity Not on file Sexual Orientation Not on file documented as of this encounter Last Filed Vital Signs Vital Sign Reading Time Taken Comments Blood Pressure - - Pulse - - Temperature - - Respiratory Rate - - Oxygen Saturation - - Inhaled Oxygen Concentration - - Weight 63.6 kg (140 lb 3.4 oz) 11/14/2024 2:37 P M EDT Height 165.2 cm (5' 5.04 ) 11/14/2024 2:37 PM ED T Body Mass Index 23.3 11/14/2024 2:37 PM EDT documented in this encounter Plan of Treatment Upcoming Encounters Date Type Department Care Team (Latest Contact Info) Description 12/06/2024 9:01 AM EDT Hospital Encounter Admitting [address] [place] [address] Shantell Bennett MD [address] [place] [address] Diverticulitis [K57.92] 12/06/2024 9:01 AM EDT - 12/06/2024 1:21 PM EDT Surgery Admitting [address] [place] [address] Shantell Bennett MD [address] [facility] [address] [place] [address] ROBOTIC LAPAROSCOPIC COLECTOMY SIGMOID COLON W/ COLORECTAL ANASTOMOSIS 01/04/2025 7:15 AM EDT Procedure Cardiology [address] [place] [id number] DX PRE OP //CARDIAC EVALUTION 01/04/2025 8:15 AM EDT Office Visit Cardiology [address] [place] [address] Gio Overton MD [address] [facility], [address] [place] [address] DX PRE OP //CARDIAC EVALUTION 04/03/2025 11:30 AM EST Procedure Pulmonary Medicine [address] [address], Pulm Fct Lab [facility] [address] [place] [address] Chronic obstructive pulmonary disease, unspecified COPD type (HCC) [J44.9] 04/03/2025 12:00 PM EST Procedure Pulmonary Medicine [address] [phone], Pulm Fct Lab [facility] [address] [place] [address] Chronic obstructive pulmonary disease, unspecified COPD type (HCC) [J44.9] 04/03/2025 12:15 PM EST Procedure Pulmonary Medicine [address] [address], Pulm Fct Lab Main [address] [place] [address] Chronic obstructive pulmonary disease, unspecified COPD type (HCC) [J44.9] 04/03/2025 12:30 PM EST Procedure Pulmonary Medicine [address] [address], Pulm Fct Lab Main [address] [place] [address] Chronic obstructive pulmonary disease, unspecified COPD type (HCC) [J44.9] 04/03/2025 1:00 PM EST Office Visit Pulmonary Medicine [address] [address] Tari Bailon MD [address] [place] [address] Follow up 4 months Pending Results Name Type Priority Associated Diagnoses Date /Time SPIROMETRY WITH DILATOR IF OBSTRUCTED PFT Routine Shortness of breath 11/14/2024 2:17 PM EDT Scheduled Procedures Name Priority Associated Diagnoses Date/Ti me ROBOTIC LAPAROSCOPIC COLECTO MY SIGMOID COLON W/ COLORECTAL ANASTOMOSIS Diverticulitis 12/06/2024 9:01 AM EDT documented as of this encounter Goals Goal Patient Goal Type Associated Problems Recent Progress Patient-Stated? 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 Host/Hostess Restaurant Care Plan Colonoscopy Host/Hostess Restaurant No Roxanna Haider Autogenerated Goal Care Plan Autogenerated Problem No Meghan Oakley documented as of this encounter Procedures Procedure Name Priority Date/Time Associated Diagnosis Comments SPIROMETRY WITH DILATOR IF OBSTRUCTED Routine 11/14/2024 2:17 PM EDT Shortness of breath documented in this encounter Visit Diagnoses Diagnosis Shortness of breath- Primary Diverticulitis Diverticulitis of colon (without mention of hemorrhage) documented in this encounter Additional Health Concerns Active Problems Noted Date Diagnosed Date 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
--- OUTSIDE RECORDS SUMMARY | 2024-11-14 14:00 | XMS_ITS | Encounter Summary ---
Author Organization [facility] Address [address] [place] [id number] Care Team Providers Care Shipbuilding Draftsperson Name Role Phone Unavailable Primary Care Provider Unavailabl e Source Comments In the event this information is protected by the Federal Confidentiality of Alcohol and Drug AbusePatient Records regulations: The Federal rules restrict any use of the information to criminally investigate or prosecute any alcohol or drug abuse patient.[facility] Reason for Referral * Outpatient Procedure (Routine) - New Request Specialty Diagnoses / Procedures Referred By Contac t Referred To [facility] Diagnoses Chronic obstructive pulmonary disease, unspecified COPD type (HCC) Procedures ARTERIAL BLOOD GAS, ROOM AIR GASES BLOOD PH DIRECT TRAE XCP[place] [address] [place] [address] Phone: tel: fax: [facility] [address] [place] [address] Referral ID Status Reason Start Date Expiration Date Visits Requested Visits Authorized [id number] New Request Auto-Generat ed Referral 11/14/2024 12/14/2025 1 1 * Outpatient Procedure (Routine) - Pending Review Specialty Diagnoses / Procedures Referred By Contac t Referred To [facility] [place] Diagnoses Chronic obstructive pulmonary disease, unspecified COPD type (HCC) Procedures LUNG VOLUMES Tari Bailon MD [address] [place] [address] Phone: tel: fax: [address] [phone] Referral ID Status Reason Start Date Expiration Date Visits Requested Visits Authorized [id number] Pending Review Auto-Generat ed Referral 11/14/2024 12/14/2025 1 1 * Outpatient Procedure (Routine) - Authorized Specialty Diagnoses / Procedures Referred By Contac t Referred To [facility] Diagnoses Chronic obstructive pulmonary disease, unspecified COPD type (HCC) Procedures LUNG DIFFUSION CAPACITY (DLCO) DIFFUSING CAPACITY Tari Bailon MD [address] [place] [address] Phone: tel: fax: [address] [phone] Referral ID Status Reason Start Date Expiration Date Visits Requested Visits Authorized [id number] Authorized Auto-Generat ed Referral 11/14/2024 12/14/2025 1 1 * Outpatient Procedure (Routine) - Authorized Specialty Diagnoses / Procedures Referred By Contac t Referred To [facility] Diagnoses Chronic obstructive pulmonary disease, unspecified COPD type (HCC) Procedures SIX MINUTE WALK CARDIOPULMONARY EXERCISE STRESS Tari Bailon MD [address] [place] [address] Phone: tel: fax: [address] [phone] Referral ID Status Reason Start Date Expiration Date Visits Requested Visits Authorized [id number] Authorized Auto-Generat ed Referral 11/14/2024 12/14/2025 1 1 * Outpatient Procedure (Routine) - Authorized Specialty Diagnoses / Procedures Referred By Contac t Referred To [facility] Diagnoses Chronic obstructive pulmonary disease, unspecified COPD type (HCC) Procedures SPIROMETRY BASELINE ONLY SPMTRY W/VC EXPIRATORY REESE W/WO MXML VOL VNTJ Tari Bailon MD [address] [place] [address] Phone: tel: fax: [facility] [address] [place] [address] Referral ID Status Reason Start Date Expiration Date Visits Requested Visits Authorized [id number] Authorized Auto-Generat ed Referral 11/14/2024 12/14/2025 1 1 Reason for Visit * Reason Comments New Patient Encounter Details Date Type Department Care Team (Latest Contact Info) Description 11/14/2024 2:00 PM EDT Office Visit Pulmonary Medicine [address] [address] Tari Bailon MD [address] [place] [address] Chronic obstructive pulmonary disease, unspecified COPD type (HCC) (Primary Dx); Encounter for preprocedural respiratory examination; Heart failure with reduced ejection fraction (HCC) Social History Tobacco Use Types Packs/Day Years [...] is lower risk 9 10/12/2024 Data from: https://www.neighborhoodatlas.medicine.[facility].edu/. Last address used for calculation [address] [facility] 10/12/2024 Sex and Gender Information Value Date Recorded Sex Assigned at Not on file Legal Sex Male 10:45 AM EDT Gender Identity Not on file Sexual Orientation Not on file documented as of this encounter Last Filed Vital Signs Vital Sign Reading Time Taken Comments Blood Pressure 109/76 11/14/2024 2:52 PM EDT Pulse 129 11/14/2024 2:52 PM EDT PULSE VERY HIGH Temperature 36.8 C (98.2 F) 11/14/2024 2:52 PM EDT Respiratory Rate 18 11/14/2024 2:52 PM EDT Oxygen Saturation 98% 11/14/2024 2:5 2 PM EDT Inhaled Oxygen Concentration - - Weight 63.7 kg (140 lb 6.9 oz) 11/14/2024 2:52 PM EDT Height - - Body Mass Index 23.34 11/14/2024 2:37 PM EDT documented in this encounter Patient Instructions * Patient Instructions* Tari Bailon MD - 11/14/2024 3:40 PM EDT We discussed your upcoming surgery for a colonic abscess: - You are scheduled for surgery on December [address] Bennett. The procedure will likely involve a robotic sigmoid resection, but the exact extent of the surgery will be determined during the operation. - This surgery is intended to address the abscess and prevent further complications. You will not need drains after the surgery unless determined otherwise during the procedure. We discussed your COPD (chronic obstructive pulmonary disease): - You have stage 3 (severe) COPD. Your pulmonary function test shows your FEV1 (lung function) is 41% of what is expected for your age and height. - I prescribed a long-acting inhaler (Bevespi or a similar medication) to help open your airways and improve your breathing. Take 2 puffs twice daily. If the cost is prohibitive, let me know, and I will work with your pharmacy to find an alternative. - Your oxygen saturation is currently 98%, so you do not need supplemental oxygen at this time. However, I recommend a 6-minute walk test, diffusion capacity test, and arterial blood gas test to further evaluate your lung function. These tests can be scheduled on a separate day from your colonoscopy. - I recommend enrolling in a pulmonary rehabilitation program after your surgery to help improve your exercise tolerance and overall lung health. Until then, aim to walk 20-30 minutes daily at your own pace. We discussed your heart health: - You have a history of congestive heart failure with mildly reduced left ventricular function (ejection fraction 45-50%) and hypokinetic areas in your heart muscle, likely due to a prior heart attack. - It is important to have a cardiac evaluation before your surgery. A stress test has been ordered,and your fiscal specialist will oversee this. If you do not yet have an appointment, please follow up toensure this is scheduled. We discussed additional testing: - I recommend a blood test to check for alpha-1 antitrypsin deficiency, a genetic condition that can contribute to COPD. This test can be done at any time; please schedule it when convenient. We discussed your general health and surgical risks: - Your COPD does not prohibit surgery but may increase your risk of complications, such as low oxygen levels or prolonged time on a breathing machine after surgery. Your anesthesiologist will be aware of these risks and will take appropriate precautions. - Anxiety can worsen COPD symptoms by causing faster breathing, which traps more air in your lungs.Managing anxiety may help improve your breathing. Follow-up instructions: - Schedule the recommended lung function tests (6-minute walk test, diffusion capacity, and arterial blood gas) on a separate day from your colonoscopy. - Ensure your cardiac stress test is completed before surgery. - Schedule the alpha-1 antitrypsin deficiency blood test at your convenience. - Begin using your prescribed inhaler as directed. - Consider pulmonary rehabilitation after your surgery to improve your lung function and energy levels. Please let me know if you have any issues with your medications or if you have further questions. documented in this encounter H&P Notes * Tari Bailon MD - 11/14/2024 3:08 PM EDT Extended HPI: Erasto Diaz is a 64-year-old male, with a history of diverticulitis, presenting for preoperative evaluation prior to a scheduled colonic abscess surgery on 12/07/2023. Erasto has a history of a colonic abscess secondary to diverticulitis, which has necessitated two hospitalizations within the past month. A drain was placed during the initial hospitalization, but itwas removed due to minimal drainage. Erasto continues to experience drainage from the abscess. He is scheduled for surgery on 12/07/2023, but the extent of the surgery (total or partial colectomy) is yet to be determined. A colonoscopy performed earlier today was incomplete due to a kink in the colon, necessitating a repeat procedure under general anesthesia. Erasto has a significant smoking history, having smoked for 48 years at a rate of 0.5-1 pack per day. He quit smoking approximately one year ago. He reports dyspnea on exertion, particularly when ascending stairs, which he attributes to being out of shape. He can walk a block but finds it challenging to keep up with his , who is a fast walker. He denies any history of COPD exacerbations requiring steroids or antibiotics, and has not used any breathing medications. He also denies any history of sleep apnea, chest surgery, or the use of non- invasive ventilation. Erasto has a history of congestive heart failure, with a left ventricular ejection fraction of 45-50% as of 08/11/2023. He reports no chest pain or angina. He is currently without a fiscal specialist but has been referred to one by a PA earlier today. 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 He wore a mask towards the end of his employment due to concerns about dust exposure. He also has a family history of COPD, with his mother being affected. ARISCAT ([place]) Preoperative Pulmonary Risk Index Age < 50 years old (0 points) 51 to 80 years old (3 points) >80 years old (16 points) 3 Preoperative Oxygen Saturation > 96% (0 points) 91 to 95% (8 points) < 90% (24 points) 0 Other Clinical Risk Factors Respiratory infection in the last month (17 points) Preoperative anemia with hemoglobin < 10 g/dL (11 points) Emergency surgery (8 points) 0 Surgical Incision Upper abdominal (15 points) Intrathoracic (24 points) 0 Duration of Surgery < 2 hours (0 points) 2 to 3 hours (16 points) >3 hours (23 points) 23 Total: 26 Review of systems Constitutional: (+) fatigue Respiratory: (+) dyspnea on exertion PAST MEDICAL HISTORY Diagnosis Date CHF (congestive heart failure) (HCC) Diverticulitis w/ perforation and abscess Former smoker 11/14/2024 HTN (hypertension) 11/14/2024 Hyperlipemia 11/14/2024 PAST SURGICAL HISTORY Procedure Laterality Date PAST SURGICAL HISTORY OF Hernia Repair FAMILY HISTORY Problem Relation Age of Onset Stroke Father Heart Father Open Heart Surgery Heart Failure Paternal Grandfather SOCIAL HISTORY[1] Physical examination: BP 109/76 Pulse (!) 129 Temp 36.8 ??C (98.2 ??F) (Temporal) Resp 18 Wt 63.7 kg (140 lb 6.9 oz) SpO2 98% BMI 23.34 kg/m?? General: Alert, oriented, no acute distress. Cauliflower ears. Neck: No carotid bruit on bilateral auscultation Respiratory: Reduced breath sounds bilaterally. Cardiovascular: Jugular venous pressure normal. Regular rate and rhythm, normal S1 and S2, no murmurs or added sounds Abdomen: Normal diaphragmatic excursion. Extremities: No clubbing, cyanosis, or edema Diagnostics: Tests: (Today) - Pulmonary Function Test: Postbronchodilator FEV1 1.11 L post-bronchodilator (41% of predicted) - Colonoscopy: Incomplete examination due to colonic kink Imaging: (08/11/2023) Echocardiogram: - Ejection Fraction: 45-50% (mildly reduced) - Hypokinetic basilar and mid-inferolateral bassett - Grade 1 diastolic dysfunction Chest X-ray: Consistent with COPD (hyperinflation and flattened diaphragms) CT Abdomen: Mild emphysematous changes at the lung bases Assessment and plan: 1. Chronic obstructive pulmonary disease, unspecified COPD type (HCC) (J44.9) Severe COPD (Stage 3) confirmed by PFTs (FEV1 41% predicted) and imaging; no prior formal diagnosis. Significant risk factors include 48-year smoking history (0.5-1 pack/day, quit ~1 year ago), family history, and occupational exposure to glass dust and chemicals. No prior use of inhalers or oxygen. - Start inhaled long-acting bronchodilator (Bevespi 2 puffs BID). - Order 6-minute walk test, diffusion capacity, and arterial blood gas to assess oxygenation and CO2 retention. - Order alpha-1 antitrypsin deficiency testing. - Advised 20-30 minutes of daily walking at own pace; recommended pulmonary rehabilitation program post-surgery. - Discussed low to intermediate (ARISCAT score 26) perioperative risks for respiratory complications (e.g., hypercapnia, prolonged ventilation) and need for anesthesiologist awareness. These risks are not prohibitive for colon surgery. - Provided education on COPD pathophysiology, treatment rationale, and impact of anxiety on breathing. 2. Encounter for preprocedural respiratory examination (Z01.811) Preoperative respiratory risk assessment for planned robotic sigmoid resection on December 06 due to persistent colonic abscess from diverticulitis. - Discussed perioperative pulmonary risks and need for anesthesiologist awareness. - Advised completion of additional pulmonary testing prior to surgery. 3. Heart failure with reduced ejection fraction (HCC) (I50.20) Reviewed echocardiogram from 08/11/2023 showing LVEF 45-50%, mild reduction, with hypokinesis of basilar and mid-inferolateral bassett and grade 1 diastolic dysfunction. - Emphasized importance of preoperative cardiac evaluation and exercise testing prior to surgery. - Confirmed referral to cardiology for further assessment. Tari Bailon MD [facility] [1] Social History Tobacco Use Smoking status: Former Current packs/day: 0.00 Average packs/day: 1 pack/day for 47.0 years (47.0 ttl pk-yrs) Types: Cigarettes Start date: 11/26/1976 Quit date: 11/27/2023 Years since quittin.9 Passive exposure: Past Smokeless tobacco: Never Vaping Use Vaping status: Never Used Substance Use Topics Alcohol use: Not Currently Drug use: Not Currently documented in this encounter Plan of Treatment Upcoming Encounters Date Type Department Care Team (Latest Contact Info) Description 12/06/2024 9:01 AM EDT Hospital Encounter Admitting [address] [place] [address] Shantell Bennett MD [address] [address] Diverticulitis [K57.92] 12/06/2024 9:01 AM EDT - 12/06/2024 1:21 PM EDT Surgery Admitting [address] [place] [address] Shantell Bennett MD [address] [address] ROBOTIC LAPAROSCOPIC COLECTOMY SIGMOID COLON W/ COLORECTAL ANASTOMOSIS 01/04/2025 7:15 AM EDT Procedure Cardiology [address] [place] [address] DX PRE OP //CARDIAC EVALUTION 01/04/2025 8:15 AM EDT Office Visit Cardiology [address] [place] [address] Gio Overton MD [address] [facility] [address] [place], [place] [id number] DX PRE OP //CARDIAC EVALUTION 04/03/2025 11:30 AM EST Procedure Pulmonary Medicine [address] [address] 2, Pulm Fct Lab [facility] [address] [place], [place] [id number] Chronic obstructive pulmonary disease, unspecified COPD type (HCC) [J44.9] 04/03/2025 12:00 PM EST Procedure Pulmonary Medicine [address] [address] 5, Pulm Fct Lab [facility] [address] [place] [address] Chronic obstructive pulmonary disease, unspecified COPD type (HCC) [J44.9] 04/03/2025 12:15 PM EST Procedure Pulmonary Medicine [address] [address] 9, Pulm Fct Lab Main [address] [place] [address] Chronic obstructive pulmonary disease, unspecified COPD type (HCC) [J44.9] 04/03/2025 12:30 PM EST Procedure Pulmonary Medicine [address] [address] 10, Pulm Fct Lab Main [address] [place] [address] Chronic obstructive pulmonary disease, unspecified COPD type (HCC) [J44.9] 04/03/2025 1:00 PM EST Office Visit Pulmonary Medicine [address] [address] Tari Bailon MD [address] [place] [address] Follow up 4 months Scheduled Orders Name Type Priority Associated Diagnoses Orde r Schedule SPIROMETRY BASELINE ONLY PFT Routine Chronic obstructive pulmonary disease, unspecified COPD type (HCC) 1 Occurrences starting 11/14/2024 until 12/14/2025 SIX MINUTE WALK PFT Routine Chronic obstructive pulmonary disease, unspecified COPD type (HCC) 1 Occurrences starting 11/14/2024 until 12/14/2025 LUNG DIFFUSION CAPACITY (DLCO) PFT Routine Chronic obstructive pulmonary disease, unspecified COPD type (HCC) 1 Occurrences starting 11/14/2024 until 12/14/2025 LUNG VOLUMES PFT Routine Chronic obstructive pulmonary disease, unspecified COPD type (HCC) 1 Occurrences starting 11/14/2024 until 12/14/2025 ARTERIAL BLOOD GAS, ROOM AIR PFT Routine Chronic obstructive pulmonary disease, unspecified COPD type (HCC) 1 Occurrences starting 11/14/2024 until 12/14/2025 ALPHA 1 ANTITRYP PHEN/GENOTYPE Lab Routine Chronic obstructive pulmonary disease, unspecified COPD type (HCC) Expected: 11/14/2024, Expires: 02/13/2025 Scheduled Procedures Name Priority Associated Diagnoses Date/Ti me ROBOTIC LAPAROSCOPIC COLECTO MY SIGMOID COLON W/ COLORECTAL ANASTOMOSIS Diverticulitis 12/06/2024 9:01 AM EDT documented as of this encounter Goals Goal Patient Goal Type Associated Problems Recent Progress Patient-Stated? 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 Family Day Carer Care Plan Colonoscopy Family Day Carer No Roxanna Haider Autogenerated Goal Care Plan Autogenerated Problem No Meghan Oakley documented as of this encounter Visit Diagnoses Diagnosis Chronic obstructive pulmonary disease, unspecified COPD type (HCC)- Primary Encounter for preprocedural respiratory examination Pre-operative respiratory examination Heart failure with reduced ejection fraction (HCC) Heart failure, unspecified Diverticulitis Diverticulitis of colon (without mention of hemorrhage) documented in this encounter Additional Health Concerns Active Problems Noted Date Diagnosed Date Colonoscopy Family Day Carer 10/31/2024 Autogenerated Problem 11/04/2024 documented as of this encounter
--- OUTSIDE RECORDS SUMMARY | 2024-11-15 09:52 | XMS_ITS | Encounter Summary ---
Author Organization [facility] Address [address] [place] [address] Care Team Providers Care Gis Engineer Name Role Phone Vijay Mckeon DO Primary Care Provider [phone] Encounter Details Date Type Department Care Team (Late st Contact Info) Description 09/21/2024 Orders Only [facility] [address] [address] Aram Wayne MD [address] [address] Social History Tobacco Use Types Packs/Day Years Used Date Smoking Tobacco: Former Cigarettes Alcohol Use Standard Drinks/Week Comments Yes 0 (1 standard drink = 0.6 oz pur e alcohol) Sex and Gender Information Value Date Recorded Sex Assigned at Not on file Legal Sex Male 6:31 PM EDT Gender Identity Not on file Sexual Orientation Not on file documented as of this encounter Plan of Treatment Not on file documented as of this encounter Visit Diagnoses Not on filedocumented in this encounter Care Teams Gis Engineer Relationship Specialty Start Date End Date Vijay Mckeon DO [address] [place] [facility] [place] [id number] PCP - General Internal Medicine 08/25/24 documented as of this encounter
--- OUTSIDE RECORDS SUMMARY | 2024-11-15 09:52 | XMS_ITS | Clinical Summary ---
Author Organization [facility] Address [address] [place] [address] Care Team Providers Care Director Property Name Role Phone Vijay Mckeon DO Primary Care Provider [phone] Allergies Active Allergy Reactions Criticality Noted Date Comments Lisinopril Hives 10/31/2022 Medications aspirin 81 mg EC tablet Take 81 mg by mouth in the morning. Active spironolactone (Aldactone) 25 mg tabletIndications :Chronic systolic heart failure (CMS/HCC) TAKE 1 TABLET BY MOUTH IN THE MORNING 90 tablet 3 4 Active metoprolol succinate XL (Toprol-XL) 100 mg 24 hr tabletIndications :Palpitations Take 1 tablet (100 mg) by mouth once daily as directed. Do not crush or chew. 14 tablet 5 03/31/19 26 Active atorvastatin (Lipitor) 80 mg tabletIndications :Coronary artery disease due to lipid rich plaque Take 1 tablet (80 mg) by mouth at bedtime. 90 tablet 3 5 05/02/19 26 Active losartan (Cozaar) 25 mg tabletIndications :Essential hypertension TAKE 1 TABLET BY MOUTH EVERY DAY DIRECTED 90 tablet 3 5 Active ranolazine (Ranexa) 500 mg 12 hr tabletIndications :Coronary artery disease involving [place] coronary artery of [place] heart with other form of angina pectoris Take 1 tablet (500 mg) by mouth two times daily. Do not crush, chew, or split. 180 tablet 3 5 08/02/19 26 Active Active Problems Problem Noted Date Diagnosed Date Vasomotor rhinitis 07/16/2022 Positive colorectal cancer screening using Colog uard test 07/16/2022 Nicotine dependence 07/16/2022 Assessment & Plan (07/16/2022 4:11 PM EDT): Remains non smoking currently IFG (impaired fasting glucose) 07/16/2022 Coronary artery disease invo lving [place] coronary artery of [place] heart without angina pectoris 07/16/2022 Mixed hyperlipidemia 07/16/2022 Assessment & Plan (07/16/2022 4:10 PM EDT): Continue lipitor Chronic systolic congestive heart failure 2022 Overview (04/11/2022): Added automatically from request for surgery [id number] Assessment & Plan (07/16/2022 4:10 PM EDT): NYHC II, currently appears euvolemic without exacerbation Continue GDMT- ASA, coreg, losartan and lipitor. Will start farxiga and aldactone- asked pt to monitor weight daily, limit fluid intake to 1.5 -2L Diuretic therapy- start farxiga Monitor daily weights, I&O, fluid restriction 1.5-2L/day, renal function and electrolytes- Heart failure pamphlet provided and reviewed Encounters Date Type Department Care Team Description 08/18/2024 Telephone [facility] Heart at [place] [address] [place] [address] Maria Isabel Nolasco MA from Last 3 Months Family History Medical History Relation Name Comments CABG Father Coronary artery disease Father Heart attack Father COPD Mother Relation Name Status Comments Father Mother Sister Alive Social History Tobacco Use Types Packs/Day Years Used Date Smoking Tobacco: Former Cigarettes Smokeless Tobacco: Never Tobacco Cessation:Counseling Given: Not Answered Alcohol Use Standard Drinks/Week Comments Not Currently 0 (1 standard drink = 0.6 oz pur e alcohol) [place] Safety & Environment Answer Date Rec orded Fear of Current or Ex-Partner Not on file Emotionally Abused Not on file 05/14/2023 Physically Abused Not on file 05/14/2023 Sexually Abused Not on file 05/14/2023 Physically or Sexually Abused Not on file Sex and Gender Information Value Date Recorded Sex Assigned at Not on file Legal Sex Male 4:00 PM EST Gender Identity Not on file Sexual Orientation Not on file Last Filed Vital Signs Vital Sign Reading Time Taken Comments Blood Pressure 122/82 08/01/2024 11:18 AM EDT Pulse 84 08/01/2024 11:18 AM EDT Temperature - - Respiratory Rate 16 04/28/2022 12:23 PM EST Oxygen Saturation 97% 08/01/2024 11:18 AM EDT Inhaled Oxygen Concentration - - Weight 64 kg (141 lb) 08/01/2024 11:18 AM EDT Height 167.6 cm (5' 6 ) 08/01/2024 11:18 AM EDT Body Mass Index 22.76 08/01/2024 11:18 AM EDT Plan of Treatment Health Maintenance Due Date Last Done Comments CT Colonography 1959 FIT-DNA 1959 FOBT 1960 Medicare Annual Wellness (AWV) 1959 Medicare Initial Physical (IPPE) 1959 Sigmoidoscopy 1959 Depression Screening 1971 Pneumococcal Vaccine: 50+ Ye ars (1 of 2 - PCV) 1978 Adult Tetanus 1981 Zoster Vaccines (1 of 2) 2009 FIT 02/25/2023 02/25/2022 COVID-19 Vaccine (1 - 2023-2 5 season) 2023 Fall Risk Screening 2024 Influenza Vaccine (#1) 2024 Colonoscopy 04/18/2032 04/18/2022 Colorectal Cancer Screening 04/18/2032 HIB Vaccines Aged Out No longer eligi ble based on patient's age to complete this topic HPV Vaccines Aged Out No longer eligi ble based on patient's age to complete this topic IPV Vaccines Aged Out No longer eligi ble based on patient's age to complete this topic Meningococcal B Vaccine Aged Out No l onger eligible based on patient's age to complete this topic Meningococcal Vaccine Aged Out No kevon lyudmila eligible based on patient's age to complete this topic Rotavirus Vaccines Aged Out No longer eligible based on patient's age to complete this topic Insurance [employer] Care Teams Director Property Relationship Specialty Start Date End Date Vijay Mckeon DO [address] [place] [address] PCP - General 04/11/22
--- OUTSIDE RECORDS SUMMARY | 2024-11-15 09:52 | XMS_ITS | Encounter Summary ---
Author Organization [facility] Address [address] [place] [address] Care Team Providers Care End Packer Name Role Phone Vijay Mckeon DO Primary Care Provider [phone] Reason for Visit * Reason Comments Med Refill Encounter Details Date Type Department Care Team (Late st Contact Info) Description 04/11/2023 Refill [facility] Heart at [facility] [address] [place] [address] Jesse Anderson MD [address] [facility] [address] [place] [address] Coronary artery disease due to lipid rich plaque Social History Tobacco Use Types Packs/Day Years Used Date Smoking Tobacco: Every Day Cigarettes Smokeless Tobacco: Never Alcohol Use Standard Drinks/Week [...] as of this encounter Visit Diagnoses Diagnosis Coronary artery disease due to lipid rich plaque documented in this encounter Care Teams End Packer Relationship Specialty Start Date End Date Vijay Mckeon DO [address] [facility] [address] PCP - General 04/11/22 documented as of this encounter
--- OUTSIDE RECORDS SUMMARY | 2024-11-15 09:52 | XMS_ITS | Encounter Summary ---
Author Organization [facility] Address [address] [facility] [address] [place] [address] Care Team Providers Care Corrections Nurse Name Role Phone Vijay Mckeon DO Primary Care Provider [phone] Encounter Details Date Type Department Care Team (Late st Contact Info) Description 08/22/2024 External Result Encounter [facility] External Department Unsolicited Aram Wayne MD [address] [address] Social History Tobacco Use Types Packs/Day Years Used Date Smoking Tobacco: Never Assessed Sex and Gender Information Value Date Recorded Sex Assigned at Not on file Legal Sex Male 6:31 PM EDT Gender Identity Not on file Sexual Orientation Not on file documented as of this encounter Plan of Treatment Not on file documented as of this encounter Procedures Procedure Name Priority Date/Time Associated Diagnosis Comments CT GUIDED CATHETER PLACEMENT 08/22/2024 3:08 PM EDT documented in this encounter Results * CT GUIDED CATHETER PLACEMENT (08/22/2024 3:08 PM EDT) Anatomical Region Laterality Modality Radiographic Kristy ging 08/22/2024 3:08 PM EDT Impressions 08/24/2024 7:[address]-guided pigtail catheter drain placement within a left inguinal abscess. Impression dictated by: Alex Leyva M.D. 08/22/2024 3:10 PM Dictation Location: [facility]- Transcribed By: MAGALY 08/22/24 1510 Dictated By: Alex Leyva II, MD 08/22/24 1500 Signed By: <Electronically signed by Alex Leyva II, MD in OV> 08/22/24 1510 Narrative 08/24/2024 7:50 AM EDT [address] [address] [address] Scan Report Signed Patient: Erasto Diaz MR#: [id number] : 1960 Acct:[id number] Age/Sex: 64 / M ADM Date: 08/21/24 Loc: Room: [address] [place] [address] Type: DIS IN Attending Dr: Enoc Zepeda DO Copies to: MD Enoc Love DO Ordering Provider: Aram Wayne MD; Enoc Zepeda DO Date of Service: 08/22/24 CT/CT guided drainage: Diverticular abscess ([id number]) CT/CT guided catheter placement: , CT guided needle placement 08/22/2024 2:01 PM SIGNS AND SYMPTOMS: Abscess and left groin, drain placement INFORMED CONSENT: Reason for procedure was discussed with the patient. The procedure expectations risks benefits options and alternatives were discussed. All the questions were answered. The patient understood the results cannot be guaranteed. The procedure is indicated and risks were acceptable. Consent was obtained. PROCEDURE: CT images were utilized to identify the gas containing collection in the left inguinal region. The skin was marked in this location. The skin was prepped and draped in a sterile manner. 6 mL of lidocaine 2% without epinephrine were used for local anesthesia. An 18-gauge pigtail catheter was advanced into the collection percutaneously. The pigtail catheter was deployed with the inner stiffener and needle removed. The pigtail catheter was aspirated yielding approximately 25 mL of bloody purulent material and gas. The pigtail catheter was connected to a three-way stopcock and a Magdi-Artis drain. The catheter was fixed to the skin surface using a stay fix. The patient tolerated the procedure well. No immediate complications were detected. CT/CT guided catheter placement Procedure Note Alex Leyva MD - 09/29/[address]24 [address] [place] [address] CT Scan Report Signed Patient: Erasto Diaz JMR#: [id number] : 1960Acct:[id number] Age/Sex: 64 / MADM Date: 08/21/24 Loc: Room: [id number]: DIS IN Attending Dr: Enoc Zepeda DO Copies to: MD Enoc Love DO Ordering Provider: Aram Wayne MD; Enoc Zepeda DO Date of Service: 08/22/24 CT/CT guided drainage: Diverticular abscess ([id number]) CT/CT guided catheter placement: , CT guided needle placement 08/22/2024 2:01 PM SIGNS AND SYMPTOMS: Abscess and left groin, drain placement INFORMED CONSENT: Reason for procedure was discussed with the patient. The procedureexpectations risks benefits options and alternatives were discussed. All the questions were answered.The patient understood the results cannot be guaranteed. The procedure is indicated and risks wereacceptable. Consent was obtained. PROCEDURE: CT images were utilized to identify the gas containing collection in theleft inguinal region. The skin was marked in this location. The skin was prepped and draped in asterile manner. 6 mL of lidocaine 2% without epinephrine were used for local anesthesia. [id number] pigtail catheter was advanced into the collection percutaneously. The pigtail catheter wasdeployed with the inner stiffener and needle removed. The pigtail catheter was aspirated yieldingapproximately 25 mL of bloody purulent material and gas. The pigtail catheter was connected to athree- way stopcock and a Magdi-Artis drain. The catheter was fixed to the skin surface using astay fix. The patient tolerated the procedure well. No immediate complications were detected. CT/CT guided catheter placement IMPRESSION: Successful CT-guided pigtail catheter drain placement within a leftinguinal abscess. Impression dictated by: Alex Leyva M.D. 08/22/2024 3:10 PM Dictation Location: [place] [address] Transcribed By: MAGALY 08/22/24 8790 Dictated By: Alex Leyva II, MD 08/22/24 1500 Signed By: <Electronically signed by Alex Leyva II, MD inOV> 08/22/24 1510 us Aram Mendoza MD IMG XR PROCEDURES Final Resu lt documented in this encounter Visit Diagnoses Not on filedocumented in this encounter Care Teams Corrections Nurse Relationship Specialty Start Date End Date Vijay Mckeon DO [address] [place] [address] PCP - General Internal Medicine 08/25/24 documented as of this encounter
--- OUTSIDE RECORDS SUMMARY | 2024-11-15 09:52 | XMS_ITS | Encounter Summary ---
Author Organization [facility] Address [address] [place] [address] Care Team Providers Care Resin Painter Name Role Phone Unavailable Primary Care Provider Unavailabl e Source Comments In the event this information is protected by the Federal Confidentiality of Alcohol and Drug AbusePatient Records regulations: The Federal rules restrict any use of the information to criminally investigate or prosecute any alcohol or drug abuse patient.[facility] Encounter Details Date Type Department Care Team (Late st Contact Info) Description 10/12/2024 Patient Msg Colorectal Surgery [address] [id number] Provider, [facility] 12/06 Preoperative Instructions Social History Tobacco Use Types Packs/Day Years Used Date Smoking Tobacco: Former Cigarettes 1 47 0 11/26/1976 - 11/27/2023 Smokeless Tobacco: Never Alcohol Use Standard Drinks/Week Comments Not Currently 0 (1 standard drink = 0.6 oz pur e alcohol) Area Deprivation Index Answer Date Yrn rded National Score (1-100), lower number is lower ri sk 94 10/12/2024 State Score (1-10), lower number is lower risk 9 10/12/2024 Data from: https://www.neighborhoodatlas.medicine.[facility]/. Last address used for calculation [address] 10/12/2024 Sex and Gender Information Value Date Recorded Sex Assigned at Not on file Legal Sex Male 10:45 AM EDT Gender Identity Not on file Sexual Orientation Not on file documented as of this encounter Plan of Treatment Upcoming Encounters Date Type Department Care Team (Latest Contact Info) Description 12/06/2024 9:01 AM EDT Hospital Encounter Admitting [address] [place] [address] Shantell Bennett MD [address] [facility] [address] [address] Diverticulitis [K57.92] 12/06/2024 9:01 AM EDT - 12/06/2024 1:21 PM EDT Surgery Admitting [address] [place] [address] Shantell Bennett MD [address] [address] ROBOTIC LAPAROSCOPIC COLECTOMY SIGMOID COLON W/ COLORECTAL ANASTOMOSIS 01/04/2025 7:15 AM EDT Procedure Cardiology [address] [place] [address] DX PRE OP //CARDIAC EVALUTION 01/04/2025 8:15 AM EDT Office Visit Cardiology [address] [place] [address] Gio Overton MD [address] [facility] [address] [place] [address] DX PRE OP //CARDIAC EVALUTION 04/03/2025 11:30 AM EST Procedure Pulmonary Medicine [address] [address], Pulm Fct Lab [facility] [address] [place] [address] Chronic obstructive pulmonary disease, unspecified COPD type (HCC) [J44.9] 04/03/2025 12:00 PM EST Procedure Pulmonary Medicine [address] [address] 5, Pulm Fct Lab Main [facility] [address] [place] [address] Chronic obstructive pulmonary disease, unspecified COPD type (HCC) [J44.9] 04/03/2025 12:15 PM EST Procedure Pulmonary Medicine [address] [address], Pulm Fct Lab Main [address] [place] [address] Chronic obstructive pulmonary disease, unspecified COPD type (HCC) [J44.9] 04/03/2025 12:30 PM EST Procedure Pulmonary Medicine [address] [address], Pulm Fct Lab Main [address] [place] [address] Chronic obstructive pulmonary disease, unspecified COPD type (HCC) [J44.9] 04/03/2025 1:00 PM EST Office Visit Pulmonary Medicine [address] [address] Tari Bailon MD [address] [place] [address] Follow up 4 months Scheduled Procedures Name Priority Associated Diagnoses Date/Ti or ROBOTIC LAPAROSCOPIC COLECTO MY SIGMOID COLON W/ COLORECTAL ANASTOMOSIS Diverticulitis 12/06/2024 9:01 AM EDT documented as of this encounter Visit Diagnoses Not on filedocumented in this encounter
--- OUTSIDE RECORDS SUMMARY | 2024-11-15 09:52 | XMS_ITS | Clinical Summary ---
Author Organization [facility] Address [address] [place] [address] Care Team Providers Care Switchgear Repairer Name Role Phone Vijay Mckeon Primary Care Provider [phone] Allergies Active Allergy Reactions Criticality Noted Date Comments Lisinopril Hives 10/31/2022 Medications aspirin 81 MG EC tablet Take 81 mg by mouth in the morning. Active atorvastatin (Lipitor) 80 MG tablet Take 80 mg by mouth at bedtime Active losartan (Cozaar) 25 MG tablet Take 25 mg by mouth Daily Active metoprolol succinate XL (Toprol-XL) 100 MG 24 hr tablet TAKE 1 TABLET BY MOUTH ONCE DAILY DIRECTED DO NOT CRUSH OR CHEW Active spironolactone (Aldactone) 25 MG tablet Take 25 mg by mouth in the morning. Active Active Problems Problem Noted Date Diagnosed Date Diverticulitis of large inte brett with perforation and abscess without bleeding 08/31/2024 Encounters Date Type Department Care Team Description 10/17/2024 Bamboo flowsheet [facility] Juan Diego Macdonald DPM 10/06/2024 Abstract [facility] [place] [facility] [address] [place] [phone] Juan Diego Macdonald DPM 10/05/2024 External Result Encounter [facility] Department Unsolicited Juan Diego Macdonald DPM 10/04/2024 Telephone [facility] [address] [facility] [address] [place] [id number] Sheri Fabian MA Pt still has drainage and Rt foot swollen 10/04/2024 Travel 10/03/2024 9:45 AM EDT Office Visit [facility] [address] [place] [address] Aram Wayne MD Hypertrophic granulation tissue (Primary Dx); Diverticulitis of large intestine with perforation and abscess without bleeding 10/03/2024 Travel 09/30/2024 Travel 09/28/2024 Travel 09/26/2024 Travel 09/21/2024 Travel 09/21/2024 Telephone [facility] [address] [place] [address] [place], [place] Drainage from drain tube site 09/21/2024 Orders Only [facility] [address] [place] [address] Aram Wayne MD 09/14/2024 11:15 AM EDT Office Visit [facility] [address] [place] [address] Aram Wayne MD Diverticulitis of large intestine with perforation and abscess without bleeding (Primary Dx) 09/14/2024 Travel 09/05/2024 Telephone [facility] [address] [facility] [address] [place] [address] [place], [place] another round of antibiotics 09/01/2024 Travel 08/31/2024 10:15 AM EDT Office Visit [facility] [address] [facility] [address] [place] [address] Aram Wayne MD Diverticulitis of large intestine with perforation and abscess without bleeding (Primary Dx); Colonic diverticular abscess 08/31/2024 Travel 08/30/2024 Travel 08/30/2024 Orders Only [facility] [address] [place] [address] Aram Wayne MD 08/29/2024 1:15 PM EDT Office Visit [facility] [address] [place] [address] Jm Blanton DO Diverticulitis of large intestine with perforation and abscess without bleeding 08/29/2024 Travel 08/25/2024 Travel 08/22/2024 External Result Encounter [facility] External Department Unsolicited Aram Wayne MD 08/22/2024 External Result Encounter [facility] External Department Unsolicited Aram Wayne MD from Last 3 Months Family History Relation Name Status Comments Father Mother Social History Tobacco Use Types Packs/Day Years Used Date Smoking Tobacco: Former Cigarettes Tobacco Cessation:Counseling Given: Not Answered Alcohol Use Standard Drinks/Week Comments Yes 0 [...] - Inhaled Oxygen Concentration - - Weight 63.5 kg (140 lb) 09/14/2024 11:18 AM EDT Height 167.6 cm (5' 6 ) 09/14/2024 11:18 AM EDT Body Mass Index 22.6 09/14/2024 11:18 AM EDT Plan of Treatment Not on file Procedures Procedure Name Priority Date/Time Associated Diagnosis Comments URIC ACID STAT 10/05/2024 6:[address] ABDOMEN PELVIS W IV CONTRAST Routine 09/08/2024 3:12 PM EDT Diverticulitis of large intestine with perforation and abscess without bleeding Colonic diverticular abscess CT GUIDED CATHETER PLACEMENT 08/22/2024 3:[address] GUIDED CATHETER PLACEMENT 08/22/2024 3:08 PM EDT CULTURE, AEROBIC BACTERIA WITH GRAM STAIN Routine 08/22/2024 10:41 AM EDT from Last 3 Months Results * Uric acid (10/05/2024 6:29 PM EDT) URIC ACID 4.8 4.4 - 7.6 mg/dL 10/05/2024 7:35 PM EDT [facility] Other Topography unknown / Unknown 10/05/2024 6:29 PM EDT 10/05/2024 7:10 PM EDT Narrative [facility] - 10/05/2024 7:35 PM EDT Comment may add to previously drawn blood Juan Diego Macdonald DPM LAB BLOOD ORDERABLES Final R esult [facility] [address] [place] [address], [facility] [address] [place] [address] * CT abdomen pelvis w IV contrast (09/08/2024 3:12 PM EDT) Anatomical Region Laterality Modality Body, Pelvis, Abdomen Computed T omography 09/08/2024 3:12 PM EDT Impressions 09/08/2024 3:21 PM EDT Persistent inflammatory changes are seen involving the left inguinal region with percutaneous pigtail catheter in place. No measurable fluid collection is noted. Impression dictated by: Gomez Henley Jr., D.ODarin 09/08/2024 3:19 PM Dictation Location: [facility]--22 Transcribed By: [facility] 09/08/24 1519 Dictated By: Gomez Henley Jr, DO 09/08/24 1512 Signed By: <Electronically signed by Gomez Henley Jr, DO in OV> 09/08/24 1519 Narrative 09/08/2024 3:21 PM EDT [facility] [place] [address] [place] [address] CT Scan Report Signed Patient: Erasto Diaz MR#: [id number] : 1960 Acct:[id number] Age/Sex: 64 / M ADM Date: 09/08/24 Loc: CT Room: Type: [facility] Attending Dr: Aram Wayne MD Copies to: Aram Wayne MD Ordering Provider: Aram Wayne MD Date of Service: 09/08/24 CT/CT abdomen pelvis w con: f/u diverticulitis, drainage of diverticular abscess CT ABDOMEN AND PELVIS WITH INTRAVENOUS CONTRAST: CLINICAL HISTORY: Follow-up diverticular abscess COMPARISON: CT abdomen and pelvis 08/21/2024 TECHNIQUE: Spiral images were obtained through the abdomen and pelvis following the administration of intravenous contrast. This CT exam was performed using one or more following dose reduction techniques: Automated exposure control, adjustment of the mA and/or kV according to patient size, or use of iterative reconstruction technique. FINDINGS: Lung Bases: [Bibasilar atelectasis/scarring.] Organs:Gallbladder is contracted. Liver portal vein spleen pancreas adrenal glands and kidneys all appear unremarkable. Abdominal aorta appears normal in caliber. There is ectasia of the right common iliac artery measuring 1.6 cm.[ GI: Stomach is grossly unremarkable. Small bowel appears nondilated. Oral contrast has reached the colon. Appendix is normal. Persistent inflammatory changes and soft tissue thickening is seen involving the left inguinal region. A pigtail catheter is in place without definite surrounding fluid. Uncomplicated colonic diverticuli are present.[No colonic obstruction. Pelvis:[Urinary bladder and prostate gland appear unremarkable.] Peritoneum/Retroperitoneum:No free air or free fluid or lymphadenopathy.[ Abd wall/Bones:Abdominal wall demonstrates no acute findings. Osseous structures demonstrate degenerative changes.[ CT/CT abdomen pelvis w con Procedure Note Gomez Henley Jr., DO - 09/29/2024 [facility] [place] [address] [place] [address] CT Scan Report Signed Patient: Erasto Diaz JMR#: [id number] : 1960Acct:[id number] Age/Sex: 64 / MADM Date: 09/08/24 Loc: CT Room:Type: [facility] Attending Dr: Aram Wayne MD Copies to: Aram Wayne MD Ordering Provider: Aram Wayne MD Date of Service: 09/08/24 CT/CT abdomen pelvis w con: f/u diverticulitis,drainage of diverticular abscess CT ABDOMEN AND PELVIS WITH INTRAVENOUS CONTRAST: CLINICAL HISTORY: Follow-up diverticular abscess COMPARISON: CT abdomen and pelvis 08/21/2024 TECHNIQUE: Spiral images were obtained through the abdomen and pelvisfollowing the administration of intravenous contrast. This CT exam was performed using one or morefollowing dose reduction techniques: Automated exposure control, adjustment of the mA and/or kVaccording to patient size, or use of iterative reconstruction technique. FINDINGS: Lung Bases: [Bibasilar atelectasis/scarring.] Organs:Gallbladder is contracted. Liver portal vein spleen pancreasadrenal glands and kidneys all appear unremarkable. Abdominal aorta appears normal in caliber. There isectasia of the right common iliac artery measuring 1.6 cm.[ GI: Stomach is grossly unremarkable. Small bowel appears nondilated.Oral contrast has reached the colon. Appendix is normal. Persistent inflammatory changes and softtissue thickening is seen involving the left inguinal region. A pigtail catheter is in placewithout definite surrounding fluid. Uncomplicated colonic diverticuli are present.[No colonicobstruction. Pelvis:[Urinary bladder and prostate gland appear unremarkable.] Peritoneum/Retroperitoneum:No free air or free fluid or lymphadenopathy.[ Abd wall/Bones:Abdominal wall demonstrates no acute findings. Osseousstructures demonstrate degenerative changes.[ CT/CT abdomen pelvis w con IMPRESSION: Persistent inflammatory changes are seen involving the left inguinalregion with percutaneous pigtail catheter in place. No measurable fluid collection is noted. Impression dictated by: Gomez Henley Jr., D.O. 09/08/2024 3:19 PM Dictation Location: [facility]- Transcribed By: [facility] 09/08/24 1519 Dictated By: Gomez Henley Jr, DO 09/08/24 1512 Signed By: <Electronically signed by Gomez Henley Jr, DO inOV> 09/08/24 1519 Aram Mendoza MD IMG CT PROCEDURES Edited Res ult - Final * CT GUIDED CATHETER PLACEMENT (08/22/2024 3:08 PM EDT) Only the most recent of2 resultswithin the time period is included. Anatomical Region Laterality Modality Radiographic Kristy ging 08/22/2024 3:08 PM EDT Impressions 08/24/2024 7:[address]-guided pigtail catheter drain placement within a left inguinal abscess. Impression dictated by: Alex Leyva M.D. 08/22/2024 3:10 PM Dictation Location: [facility]-24 Transcribed By: [facility] 08/22/24 1510 Dictated By: Alex Leyva II, MD 08/22/24 1508 Signed By: <Electronically signed by Alex Leyva II, MD in OV> 08/22/24 1510 Narrative 08/24/2024 7:50 AM EDT [place] [place] [address] CT Scan Report Signed Patient: Erasto Diaz MR#: [id number] : 1960 Acct:[id number] Age/Sex: 64 / M ADM Date: 08/21/24 Loc: Room: [address] [place] [address] Type: DIS IN Attending Dr: Enoc Zepeda DO Copies to: MD Enoc Love DO Ordering Provider: Aram Wayne MD; Enoc Zepeda DO Date of Service: 08/22/24 CT/CT guided drainage: Diverticular abscess ([id number]) CT/CT guided catheter placement: , CT guided [...] Procedure Note Alex Leyva MD - 09/29/2024 [facility] [place] [address] [place] [address] CT Scan Report Signed Patient: Erasto Diaz JMR#: [id number] : 1960Acct:[id number] Age/Sex: 64 / MADM Date: 08/21/24 Loc: Room: [id number]: DIS IN Attending Dr: Enoc Zepeda DO Copies to: MD Enoc Love DO Ordering Provider: Aram Wayne MD; Enoc Zepeda DO Date of Service: 08/22/24 CT/CT guided drainage: Diverticular abscess ([id number]) CT/CT guided catheter placement: , CT guided [...] without epinephrine were used for local anesthesia. Ar50-daawn pigtail catheter was advanced into the collection [...] Leyva M.D. 08/22/2024 3:10 PM Dictation Location: [place] [address] Transcribed By: MAGAL[facility] 08/22/24 1510 Dictated By: Alex Leyva II, MD 08/22/24 1508 Signed By: <Electronically signed by Alex Lyeva II, MD inOV> 08/22/24 1510 Aram Mendoza MD IMG XR PROCEDURES Final Resu lt * CULTURE, AEROBIC BACTERIA WITH GRAM STAIN (08/22/2024 10:41 AM EDT) Aram Mendoza MD LAB BLOOD ORDERABLES Final R esult from Last 3 Months Insurance [employer] Care Teams Switchgear Repairer Relationship Specialty Start Date End Date Vijay Mckeon DO [address] [facility] [place] [phone] PCP - General Internal Medicine 08/25/24
--- OUTSIDE RECORDS SUMMARY | 2024-11-15 09:52 | XMS_ITS | Clinical Summary ---
Author Organization [facility] Address [address] [place] [address] Care Team Providers Care School Coordinator Name Role Phone Unavailable Primary Care Provider Unavailabl e Allergies Active Allergy Reactions Criticality Noted Date Comments Lisinopril Hives 10/31/2022 Morphine Other: See Comments 10/12/2024 Broke out in Sweats Medications spironolactone (ALDACTONE) 25 mg tablet Take 25 mg by mouth every morning. Active losartan (COZAAR) 25 mg tablet Take 25 mg by mouth once daily. Active metoprolol succinate ER (TOPROL XL) 100 mg 100 mg once daily. Active atorvastatin (LIPITOR) 80 mg tablet Take 80 mg by mouth daily at bedtime. Active amoxicillin-cl avulanate potassium (AUGMENTIN) 875-125 mg per tablet Take 1 tablet by mouth every 12 hours. 5 Active aspirin, enteric coated (ASPIRIN, ENTERIC COATED) 81 mg EC tablet Take 81 mg by mouth once daily. Active neomycin 500 mg tablet Take 2 tablets by mouth at 9pm and take 2 tablets by mouth at 11pm the night before surgery. Patient should start on December 05, 2024. 4 tablet 5 Active metroNIDAZOLE (FLAGYL) 500 mg tablet Take 1 tablet by mouth at 9pm and take 1 tablet by mouth at 11pm the night before surgery. Patient should start on December 05, 2024. 2 tablet 5 Active ipratropium bromide (ATROVENT) 42 mcg (0.06 %) nasal spray instill 2 (TWO) sprays IN EACH NOSTRIL 3 TO 4 times daily 5 Active peg 3350-Electroly debbie (GOLYTELY) 236-22.74-6.74 -5.86 gram suspension Refer to printed prep instructions from your provider. 4000 mL 5 Active glycopyrrolate -formoterol (BEVESPI AEROSPHERE) 9-4.8 mcg Inhale 2 puffs as instructed two times a day. 10.7 g 5 5 Active peg 3350-Electroly debbie (GOLYTELY) 236-22.74-6.74 -5.86 gram suspension Refer to printed patient instructions that will be mailed to you. Patient should start on November 13, 2024. 1 each 5 025 Discontin ued(Disco ntinued by Patient) peg 3350-Electroly debbie (GOLYTELY) 236-22.74-6.74 -5.86 gram suspension Refer to printed patient instructions that will be mailed to you. Patient should start on December 05, 2024. 1 each 5 025 Discontin ued(Disco ntinued by Patient) Active Problems Problem Noted Date Diagnosed Date Former smoker 11/14/2024 Assessment & Plan (11/14/2024 8:27 AM EDT): Former smoker X 40 years .5 PPD. Quit 2023 Hyperlipemia 11/14/2024 Assessment & Plan (11/14/2024 8:34 AM EDT): Currently on atorvastatin (LIPITOR) HTN (hypertension) 11/14/2024 Assessment & Plan (11/14/2024 8:35 AM EDT): Currently on metoprolol succinate ER, losartan (COZAAR) and spironolactone (ALDACTONE) BP this visit 135/84 Denies SOB, dizziness, lightheadedness, palpitations, syncope and chest pain Mixed hyperlipidemia 07/16/2022 IFG (impaired fasting glucose) 07/16/2022 Assessment & Plan (11/14/2024 8:36 AM EDT): A1C ordered Coronary artery disease invo lving [place] coronary artery of [place] heart without angina pectoris 07/16/2022 Assessment & Plan (11/14/2024 8:18 AM EDT): 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 Tomasz Watkins, 08/01/24 [...] on BB, statin and low dose ASA Chronic systolic congestive heart failure 2022 Overview (11/14/2024): Added automatically from request for surgery [id number] Assessment & Plan (11/14/2024 8:12 AM EDT): Appointment to be seen by negin lloyd Denies chest pain, ankle swelling, orthopnea and PND. He denies palpitations, dizziness and syncope. Denies any increase in baseline Shortness of Breath. Encounters Date Type Department Care Team Description 11/14/2024 2:00 PM EDT Office Visit Pulmonary Medicine [address] [address] Tari Bailon MD Chronic obstructive pulmonary disease, unspecified COPD type (HCC) (Primary Dx); Encounter for preprocedural respiratory examination; Heart failure with reduced ejection fraction (HCC) 11/14/2024 1:30 PM EDT Procedure Pulmonary Medicine [address] [address] Negin Bergeron Lab Main 6 Spirometry 11/14/2024 1:15 PM EDT - 11/14/2024 11:59 PM EDT Hospital Encounter Radiology [address] [address] Shortness of breath [R06.02] Discharge Disposition: Home 11/14/2024 9:57 AM EDT - 11/14/2024 1:14 PM EDT Hospital Encounter Gastroenterology [address] [phone] Bridgette Joseph MD Diverticulitis [K57.92] Discharge Disposition: Home 11/14/2024 9:10 AM EDT Procedure Cardiology [address] [address] 11/14/2024 8:00 AM EDT PAT Pre Anesthesia [address] [place] [phone] 2, Pacc Main Pre-op evaluation (Primary Dx); Chronic systolic congestive heart failure (HCC); Coronary artery disease involving [place] coronary artery of [place] heart without angina pectoris; Former smoker; Hyperlipidemia, unspecified hyperlipidemia type; Hypertension, unspecified type; IFG (impaired fasting glucose) 11/14/2024 Patient Msg Gastroenterology [address] [place] [phone] Provider, [facility] Colonoscopy Prep Instructions 11/14/2024 Orders Only Gastroenterology [address] [place] [phone] Sonal Hampton MD Nonspecific abnormal finding on cardiac evaluation (Primary Dx); Diverticulitis 11/14/2024 Telephone Pre Anesthesia [address] [place] [address] Devi Nino APRN.RAILROAD MAINTENANCE CLERK Pre-Op Update (Pre-op cardiac evaluation ) 11/14/2024 Travel 11/07/2024 GI Preprocedure Call Gastroenterology [address] [place] [phone] Carolyn Harris RN 10/31/2024 [place] [address] Provider, [facility] Colonoscopy Human Resources Hr Representative Enrollment 10/24/2024 Telephone [facility] Endoscopy [facility] [address] [place] [address] Jennifer Garcia, RN Appointment 10/22/2024 11:59 PM EDT Anesthesia Event [facility] Endoscopy [facility] [address] [place] [phone] Reddy Rees APRN.INFORMATION SECURITY OFFICER 10/21/2024 Get Medical Advice Colorectal Surgery [address] [phone] Shantell Bennett MD Criminal Justice Program Director 10/19/2024 Patient Msg Pulmonary Medicine [address] [place] [phone] Tari Bailon MD Appointment Request 10/13/2024 Orders Only Respiratory [place] [address] [place] [address] Tari Bailon MD Shortness of breath (Primary Dx) 10/13/2024 Orders Only Colorectal Surgery [address] [place] [phone] Janice Franco APRN.RAILROAD MAINTENANCE CLERK Diverticulitis (Primary Dx); Screening for malignant neoplasm of colon 10/13/2024 Orders Only Colorectal Surgery [address] [place] [phone] Shantell Bennett MD Diverticulitis (Primary Dx); Screening for malignant neoplasm of colon 10/12/2024 9:30 AM EDT Office Visit Colorectal Surgery [address] [phone] Shantell Bennett MD Diverticulitis (Primary Dx) 10/12/2024 Patient Msg Colorectal Surgery [address] [place] [phone] Provider, [facility] 12/06 Preoperative Instructions 10/12/2024 Patient Msg Colorectal Surgery [address] [place] [phone] Provider, [facility] 11/14 Colonoscopy Prep Instructions 10/12/2024 Patient Update Colorectal Surgery [address] [place] [phone] Shantell Bennett MD 10/12/2024 Travel from Last 3 Months Family History Medical History Relation Comments Heart Father Open Heart Surge ry Stroke Father Heart Failure Paternal Grandfather Relation Status Comments Father Paternal Grandfather Social History Tobacco Use Types Packs/Day Years [...] is lower risk 9 10/12/2024 Data from: https://www.neighborhoodatlas.medicine.[facility]/. Last address used for calculation [address] [...] 6.9 oz) 11/14/2024 2:52 PM EDT Height 165.2 cm (5' 5.04 ) 11/14/2024 2 :37 PM EDT Body Mass Index 23.34 11/14/2024 2:37 PM EDT Plan of Treatment Upcoming Encounters Date Type Department Care Team (Latest Contact Info) Description 12/06/2024 9:01 AM EDT Hospital Encounter Admitting [address] [place] [address] Shantell Bennett MD [address] [address] Diverticulitis [K57.92] 12/06/2024 9:01 AM EDT - 12/06/2024 1:21 PM EDT Surgery Admitting [address] [place] [address] Shantell Bennett MD [address] [address] ROBOTIC LAPAROSCOPIC COLECTOMY SIGMOID COLON W/ COLORECTAL ANASTOMOSIS 01/04/2025 7:15 AM EDT Procedure Cardiology [address] [place] [address] DX PRE OP //CARDIAC EVALUTION 01/04/2025 8:15 AM EDT Office Visit Cardiology [address] [place] [address] Gio Overton MD [address] [facility], Desk [address] [place], [place] [id number] DX PRE OP //CARDIAC EVALUTION 04/03/2025 11:30 AM EST Procedure Pulmonary Medicine [address] [address] 2, Pulm Fct Lab [facility] [address] [place], [place] [phone] Chronic obstructive pulmonary disease, unspecified COPD type (HCC) [J44.9] 04/03/2025 12:00 PM EST Procedure Pulmonary Medicine [address] [address] 5, Pulm Fct Lab [facility] [address] [place] [address] Chronic obstructive pulmonary disease, unspecified COPD type (HCC) [J44.9] 04/03/2025 12:15 PM EST Procedure Pulmonary Medicine [address] [place] [address] 9, Pulm Fct Lab Main [address] [place] [address] Chronic obstructive pulmonary disease, unspecified COPD type (HCC) [J44.9] 04/03/2025 12:30 PM EST Procedure Pulmonary Medicine [address] [address] 10, Pulm Fct Lab Main [address] [place] [address] Chronic obstructive pulmonary disease, unspecified COPD type (HCC) [J44.9] 04/03/2025 1:00 PM EST Office Visit Pulmonary Medicine [address] [place] [address] Tari Bailon MD [address] [facility] [place] [address] Follow up 4 months Scheduled Procedures Name Priority Associated Diagnoses Date/Ti me ROBOTIC LAPAROSCOPIC COLECTO MY SIGMOID COLON W/ COLORECTAL ANASTOMOSIS Diverticulitis 12/06/2024 9:01 AM EDT Health Maintenance Due Date Last Done Comments Abdominal Aortic Aneurysm Screening 1960 Annual PCP Team Chronic Disease Visit 1977 Anxiety Screening 1977 Depression Screening 1977 HIV Screening 1977 Hepatitis C Screening 1977 LDL Cholesterol 1977 DTaP,Tdap,Td Vaccine (1 - Tdap) 1978 Pneumococcal Vaccine: 50+ (1 of 2 - PCV) [address] Colonography 2004 Fecal Occult Blood 2004 Prostate Cancer Screening Discussion 2004 Sigmoidoscopy 2004 Lung Cancer Screening 2009 Shingrix Vaccine (1 of 2) 2009 RSV Vaccine (1 - Risk 60-74 years 1-dose series) 2019 Medicare Advantage Annual Wellness Visit 03/23/2024 Advance Directive Discussion 2024 Influenza Vaccine (#1) 2024 Cologuard (FIT-DNA) 02/25/2025 02/25/2022 Colonoscopy 11/14/2025 11/14/2024 Colorectal Cancer Screening 11/14/2025 Diabetes Screening 11/15/2027 11/14/2024, 11/14/2024 Goals Goal Patient Goal Type Associated Problems Recent Progress Patient-Stated? 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 Human Resources Hr Representative Care Plan Colonoscopy Human Resources Hr Representative No User, Mychart Autogenerated Goal Care Plan Autogenerated Problem No Adin, Meghan Procedures Procedure Name Priority Date/Time Associated Diagnosis Comments SPIROMETRY WITH DILATOR IF OBSTRUCTED Routine 11/14/2024 2:17 PM EDT Shortness of breath XR CHEST 2V FRONTAL/LAT Routine 11/14/2024 1:56 PM EDT Shortness of breath COLONOSCOPY SCREENING Routine 11/14/2024 11:53 AM EDT Diverticulitis Screening for malignant neoplasm of colon CONFIRM BLOOD TYPE Routine 11/14/2024 9: 41 AM EDT Diverticulitis TYPE + SCREEN,30 DAY Routine 11/14/2024 9:37 AM EDT Diverticulitis HEMOGLOBIN A1C Routine 11/14/2024 9:37 AM EDT Pre-op evaluation IFG (impaired fasting glucose) COMPREHENSIVE METABOLIC PANEL Routine 11/14/2024 9:37 AM EDT Diverticulitis COMPLETE BLOOD COUNT Routine 11/14/2024 9:37 AM EDT Diverticulitis ECG COMPLETE Routine 11/14/2024 9:17 AM EDT Diverticulitis PT ED DIGESTIVE DISEASE 10/15/2024 PT ED DIGESTIVE DISEASE 10/15/2024 PT ED PATIENT INFORMATION 10/06/2024 CT OUTSIDE CD DICOM IMPORT 10/04/2024 CT OUTSIDE CD DICOM IMPORT 09/08/2024 CT OUTSIDE CD DICOM IMPORT 08/22/2024 CT OUTSIDE CD DICOM IMPORT 08/22/2024 CT OUTSIDE CD DICOM IMPORT 08/21/2024 from Last 3 Months Results * XR CHEST 2V FRONTAL/LAT (11/14/2024 1:56 PM EDT) Anatomical Region Laterality Modality Chest Other 11/14/2024 1:56 PM EDT Impressions 11/14/2024 6:38 PM EDT IMPRESSION: Severe emphysema with upper lobe predominance and chronic airway inflammatory changes with bronchial wall thickening in both lungs. No acute radiographic abnormality. Janitor And Cleaner: AMARJIT Transcribe Date/Time: Nov 14 2024 6:35P [...] in multiple thoracic vertebrae. Procedure Note Provider, [facility] [place] - 11/14/2024 * * *Final Report* * [...] in both lungs. No acute radiographic abnormality. Janitor And Cleaner: [facility] COUNTYRossy Transcribe Date/Time: Nov 14 2024 6:35P Dictated by : ROSA ELENA TERRAZAS MD This examination was interpreted and the report reviewed and electronically signed by: ROSA ELENA TERRAZAS MD on Nov 14 2024 6:36PM EST Tari DUNLAP-PAMA Final Result * COLONOSCOPY SCREENING (11/14/2024 11:53 AM EDT) Anatomical Region Laterality Modality Other 11/14/2024 11:5 3 AM EDT Narrative 11/14/2024 12:43 PM EDT A31 Gastrointestinal Endoscopy Patient Name: Domo Piña Procedure Date: 11/14/2024 11:53 AM Date of : 1960 Admit Type: Outpatient Age: 64 Room: [address] Gender: Male Note Status: Finalized Attending MD: Bridgette Joseph MD, [id number] Procedure: Colonoscopy Indications: Abnormal CT of the [...] Note Initiated On: 11/14/2024 11:53 AM Janice Brown-Joao TITLE SUPERVISOR.RAILROAD MAINTENANCE CLERK DIGESTIVE DISE ASE Final Result * CONFIRM BLOOD TYPE (11/14/2024 9:41 AM EDT) ABO O 11/14/2024 4:33 PM EDT CC MAIN BLOOD BANK Rh(D) Negative 11/14/2024 4:33 PM EDT CC MAIN BLOOD BANK Blood BLOOD SPECIMEN / Unknown Venipuncture / Unknown 11/14/2024 9:41 AM EDT 11/14/2024 9:41 AM EDT us I Stone Bennett MD BLOOD BANK Final Result Performing Organization Address [facility] de Phone Number CC MAIN BLOOD BANK [address] [place] [address], [place] * TYPE AND SCREEN,30 DAY (11/14/2024 9:37 AM EDT) ABO O 11/14/2024 5:11 PM EDT CC MAIN BLOOD BANK Rh(D) Negative 11/14/2024 5:11 PM EDT CC MAIN BLOOD BANK Antibody Screen Negative 11/14/2024 5:11 PM EDT CC MAIN BLOOD BANK Blood BLOOD SPECIMEN / Unknown Venipuncture / Unknown 11/14/2024 9:37 AM EDT 11/14/2024 9:38 AM EDT us I Stone Bennett MD BLOOD BANK Final Result Performing Organization Address [facility] Phone Number MAIN BLOOD BANK [address] [place], [place] [id number], [place] * (ABNORMAL) HEMOGLOBIN A1C (11/14/2024 9:37 AM EDT) Hemoglobin A1C 6.0(H) 4.3 - 5.6 % 11/14/2024 4:48 PM EDT [facility] Comment:[place] Diabetes As sociation guidelines indicate that patients with HgbA1c in the range 5.7-6.4% are at increased risk for development of diabetes, and intervention by lifestyle modification may be beneficial. HgbA1c greater or equal to 6.5% is considered diagnostic of diabetes. Estimated Average Glucose 126 mg/dL 11/14/2024 4:48 PM EDT [facility] Comment:eAG: (Estimated aver age glucose) is a calculated value from HgbA1c and is physician representative of the average blood glucose level in the last 2-3 month period. Blood BLOOD SPECIMEN / Unknown Venipuncture / Unknown 11/14/2024 9:37 AM EDT 11/14/2024 9:38 AM EDT us Devi Nino TITLE SUPERVISOR.RAILROAD MAINTENANCE CLERK LABORATORY F inal Result [facility] [address] [facility] [address] [address], * (ABNORMAL) COMPREHENSIVE METABOLIC PANEL (11/14/2024 9:37 AM EDT) Protein, Total 8.4(H) 6.3 - 8.0 g/dL 11/14/2024 12:32 PM EDT [facility] Albumin 4.5 3.9 - 4.9 g/dL 11/14/2024 12:32 PM EDT [facility] Calcium, Total 10.1 8.5 - 10.2 mg/dL 11/14/2024 12:32 PM EDT [facility] Bilirubin, Total 0.6 0.2 - 1.3 mg/dL 11/14/2024 12:32 PM EDT [facility] Alkaline Phosphatase 118(H) 38 - 113 U/L 11/14/2024 12:32 PM EDT [facility] AST 22 14 - 40 U/L 11/14/2024 12:32 PM EDT [facility] ALT 24 10 - 54 U/L 11/14/2024 12:32 PM EDT [facility] Glucose 114(H) 74 - 99 mg/dL 11/14/2024 12:32 PM EDT [facility] Comment: The [place] Diabetes Association (ADA) provides guidance for cutoff values for fasting glucose and random glucose. The ADA defines fasting as no caloric intake for at least 8 hours. Fasting plasma glucose results between 100 to 125 mg/dL indicate increased risk for diabetes (prediabetes). Fasting plasma glucose results greater than or equal to 126 mg/dL meet the criteria for diagnosis of diabetes. In the absence of unequivocal hyperglycemia, results should be confirmed by repeat testing. In a patient with classic symptoms of hyperglycemia or hyperglycemic crisis, random plasma glucose results greater than or equal to 200 mg/dL meet the criteria for diagnosis of diabetes. Reference: Standards of Medical Care in Diabetes 2016, [place] Diabetes Association. Diabetes Care. 2016.39(Suppl 1). BUN 12 9 - 24 mg/dL 11/14/2024 12:32 PM EDT [facility] Creatinine 0.80 0.73 - 1.22 mg/dL 11/14/2024 12:32 PM EDT [facility] Sodium 139 136 - 144 mmol/L 11/14/2024 12:32 PM EDT [facility] Potassium 4.8 3.7 - 5.1 mmol/L 11/14/2024 12:32 PM EDT [facility] Chloride 103 98 - 107 mmol/L 11/14/2024 12:32 PM EDT [facility] CO2 22 22 - 30 mmol/L 11/14/2024 12:32 PM EDT [facility] Anion Gap 14 8 - 15 mmol/L 11/14/2024 12:32 PM EDT [facility] Estimated Glomerular Filtration Rate 98 >=60 mL/min/1.7 3m 11/14/2024 12:32 PM EDT [facility] Comment:Estimated Glomerular Filtration Rate (eGFR) is calculated using the 2020 CKD-EPI creatinine equation. This equation utilizes serum creatinine, sex, and age as parameters. The creatinine assay has traceable calibration to isotope dilution- mass spectrometry. Refer to KDIGO guidelines for clinical interpretation. In patients with unstable renal function, e.g. those with acute kidney injury, the eGFR may not accurately reflect actual GFR. Blood BLOOD SPECIMEN / Unknown Venipuncture / Unknown 11/14/2024 9:37 AM EDT 11/14/2024 9:38 AM EDT us I Stone Bennett MD LABORATORY Final Result [facility] [address] [facility] [address] [address], [place] * (ABNORMAL) COMPLETE BLOOD COUNT (11/14/2024 9:37 AM EDT) WBC 16.71(H) 3.70 - 11.00 k/uL 11/14/2024 11:42 AM EDT [facility] RBC 5.02 4.20 - 6.00 m/uL 11/14/2024 11:42 AM EDT [facility] Hemoglobin 14.4 13.0 - 17.0 g/dL 11/14/2024 11:42 AM EDT [facility] Hematocrit 44.8 39.0 - 51.0 % 11/14/2024 11:42 AM EDT [facility] MCV 89.2 80.0 - 100.0 fL 11/14/2024 11:42 AM EDT [facility] MCH 28.7 26.0 - 34.0 pg 11/14/2024 11:42 AM EDT [facility] MCHC 32.1 30.5 - 36.0 g/dL 11/14/2024 11:42 AM EDT [facility] RDW-CV 13.8 11.5 - 15.0 % 11/14/2024 11:42 AM EDT [facility] Platelet Count 305 150 - 400 k/uL 11/14/2024 11:42 AM EDT [facility] MPV 11.1 9.0 - 12.7 fL 11/14/2024 11:42 AM EDT [facility] Absolute nRBC <0.01 <0.01 k/uL 11/14/2024 11:42 AM EDT [facility] Blood BLOOD SPECIMEN / Unknown Venipuncture / Unknown 11/14/2024 9:37 AM EDT 11/14/2024 9:38 AM EDT us I Stone Bennett MD LABORATORY Final Result [facility] [address] [facility] [address] [address], [place] * PT ED DIGESTIVE DISEASE (10/15/2024) Only the most recent of2 resultswithin the time period is included. 10/15/2024 Narrative [facility] - 11/13/2024 Provider CHHAYA your patient DOMO PIÑA started their [facility] on 11-13-2024 and completed it on 11-13-2024 [facility] program: COLONOSCOPY: WHY GET ONE? us Bridgette Joseph MD [facility] Final Result [facility] * PT ED PATIENT INFORMATION (10/06/2024) 10/06/2024 Narrative [facility] - 11/13/2024 Provider RUSSELL your patient DOMO PIÑA started their [facility] on 11-13-2024 and completed it on 11-13-2024 [facility] program: PATIENT SAFETY INSTRUCTIONS FOR HEALTHCARE SETTINGS us Shantell Bennett MD [facility] Final Result Performing Organization Address [facility] Co de Phone Number [facility] * CT-CT abdomen pelvis w con IMPORT (10/04/2024) Anatomical Region Laterality Modality Other 10/04/2024 Narrative 10/13/2024 12:25 AM EDT Images were obtained outside of [facility] Procedure Note Provider, [facility] - 10/13/2024 Images were obtained outside of [facility] us [facility] Provider RADIOLOGY Final Result * CT-CT abdomen pelvis w con IMPORT (09/08/2024) Anatomical Region Laterality Modality Other 09/08/2024 Narrative 10/12/2024 7:47 PM EDT Images were obtained outside of [facility] Procedure Note Provider, [facility] [place] - 10/12/2024 Images were obtained outside of [facility] us [facility]cf Provider RADIOLOGY Final Result * OT-CT guided drainage IMPORT (08/22/2024) Anatomical Region Laterality Modality Other 08/22/2024 Narrative 10/13/2024 12:24 AM EDT Images were obtained outside of [facility] Procedure Note Provider, [facility] [place] - 10/13/2024 Images were obtained outside of [facility] Cc Provider RADIOLOGY Final Result * CT-CT guided catheter placement IMPORT (08/22/2024) Anatomical Region Laterality Modality Other 08/22/2024 Narrative 10/12/2024 7:46 PM EDT Images were obtained outside of [facility] Procedure Note Provider, [facility] [place] - 10/12/2024 Images were obtained outside of [facility] Cc Provider RADIOLOGY Final Result * CT-CT abdomen pelvis wo con IMPORT (08/21/2024) Anatomical Region Laterality Modality Other 08/21/2024 Narrative 10/13/2024 12:25 AM EDT Images were obtained outside of [facility] Procedure Note Provider, [facility] [place] - 10/13/2024 Images were obtained outside of [facility] Cc Provider RADIOLOGY Final Result from Last 3 Months Additional Health Concerns Active Problems Noted Date Diagnosed Date Colonoscopy Human Resources Hr Representative 10/31/2024 Autogenerated Problem 11/04/2024 Insurance PARAMOUNT
--- OUTSIDE RECORDS SUMMARY | 2024-11-15 09:52 | XMS_ITS | Encounter Summary ---
Author Organization [facility] Address [address] [place] [address] Care Team Providers Care Bottle Capping Machine Operator Name Role Phone Unavailable Primary Care Provider Unavailabl e Source Comments In the event this information is protected by the Federal Confidentiality of Alcohol and Drug AbusePatient Records regulations: The Federal rules restrict any use of the information to criminally investigate or prosecute any alcohol or drug abuse patient.[facility] Encounter Details Date Type Department Care Team (Latest Contact Info) Description 11/14/2024 Travel Social History Tobacco Use Types Packs/Day Years [...] is lower risk 9 10/12/2024 Data from: https://www.neighborhoodatlas.medicine.[facility].edu/. Last address used for calculation 1101 [...] AM EDT Hospital Encounter Admitting [address] [place] [address] Shantell Bennett MD [address] [facility] [address] [address] Diverticulitis [K57.92] 12/06/2024 9:01 AM EDT - 12/06/2024 1:21 PM EDT Surgery Admitting [address] [place] [address] Shantell Bennett MD [address] [facility] [address] [address] ROBOTIC LAPAROSCOPIC COLECTOMY SIGMOID COLON W/ COLORECTAL ANASTOMOSIS 01/04/2025 7:15 AM EDT Procedure Cardiology [address] [place] [address] DX PRE OP //CARDIAC EVALUTION 01/04/2025 8:15 AM EDT Office Visit Cardiology [address] [place] [address] Gio Overton MD [address] [facility] Desk [address] [place] [address] DX PRE OP //CARDIAC EVALUTION 04/03/2025 11:30 AM EST Procedure Pulmonary Medicine [address] [address] 2, Pulm Fct Lab [address] [address] Chronic obstructive pulmonary disease, unspecified COPD type (HCC) [J44.9] 04/03/2025 12:00 PM EST Procedure Pulmonary Medicine [address] [address] 5, Pulm Fct Lab [address] [place] [address] Chronic obstructive pulmonary disease, unspecified COPD type (HCC) [J44.9] 04/03/2025 12:15 PM EST Procedure Pulmonary Medicine [address] [place] [address] 9, Pulm Fct Lab Main 9500 [place] [address] Chronic obstructive pulmonary disease, unspecified COPD type (HCC) [J44.9] 04/03/2025 12:30 PM EST Procedure Pulmonary Medicine [address] [place] [address] 10, Pulm Fct Lab Main 9500 [place] [address] Chronic obstructive pulmonary disease, unspecified COPD type (HCC) [J44.9] 04/03/2025 1:00 PM EST Office Visit Pulmonary Medicine [address] [place] [address] Tari Bailon MD [address]00 [place] [address] Follow up 4 months Scheduled Procedures Name Priority Associated Diagnoses Date/Ti me ROBOTIC LAPAROSCOPIC COLECTO MY SIGMOID COLON W/ COLORECTAL ANASTOMOSIS Diverticulitis 12/06/2024 9:01 AM EDT documented as of this encounter Goals Goal Patient Goal Type Associated Problems Recent Progress Patient-Stated? 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 Medium Cycle Salesperson Care Plan Colonoscopy Medium Cycle Salesperson No Roxanna Haider Autogenerated Goal Care Plan Autogenerated Problem No Meghan Oakley documented as of this encounter Visit Diagnoses Not on filedocumented in this encounter Additional Health Concerns Active Problems Noted Date Diagnosed Date Colonoscopy Medium Cycle Salesperson 10/31/2024 Autogenerated Problem 11/04/2024 documented as of this encounter
--- OUTSIDE RECORDS SUMMARY | 2024-11-15 09:52 | XMS_ITS | Encounter Summary ---
Author Organization [facility] Address [address] [facility] [place] [address] Care Team Providers Care Cue Selector Name Role Phone Vijay Mckeon DO Primary Care Provider [phone] Encounter Details Date Type Department Care Team (Late st Contact Info) Description 10/06/2024 Abstract [facility] [address] [facility] [address] [place] [phone] Juan Diego Macdonald DPM [address] [facility] 100 [place] [address] Social History Tobacco Use Types Packs/Day Years [...] on filedocumented in this encounter Care Teams Cue Selector Relationship Specialty Start Date End Date Vijay Mckeon DO [address] [place] [phone] PCP - General Internal Medicine 08/25/24 documented as of this encounter
--- OUTSIDE RECORDS SUMMARY | 2024-11-15 09:52 | XMS_ITS | Encounter Summary ---
Author Organization [facility] Address [address] [facility] [address] Care Team Providers Care Market Risk Manager Name Role Phone Vijay Mckeon DO Primary Care Provider [phone] Encounter Details Date Type Department Care Team (Late st Contact Info) Description 08/22/2024 External Result Encounter [facility] External Department Unsolicited Aram Wayne MD [address] [address] Social History Tobacco Use Types [...] Leyva M.D. 08/22/2024 3:10 PM Dictation Location: [facility]- Transcribed By: MAGALY 08/22/24 1510 Dictated By: Alex Leyva II, MD 08/22/24 1503 Signed By: <Electronically signed by Alex Leyva II, MD in OV> 08/22/24 1510 Narrative 08/24/2024 7:50 AM EDT [address] [address] [address] Scan Report Signed Patient: Erasto Diaz MR#: [id number] : 1960 Acct:[id number] Age/Sex: 64 / M ADM Date: 08/21/24 Loc: Room: [address] [place] [address] Type: ADM IN Attending Dr: Enoc Zepeda DO Copies to: MD Enoc Love DO Ordering Provider: Aram Wayne MD; Enoc Zepeda DO Date of Service: 08/22/24 CT/CT guided drainage: Diverticular abscess ([id number]) CT/CT guided catheter placement: , CT guided [...] detected. CT/CT guided catheter placement Procedure Note lAex Leyva MD - 08/24/2024 [address] [place] [address] CT Scan Report Signed Patient: Erasto Diaz JMR#: [id number] : 1960Acct:[id number] Age/Sex: 64 / MADM Date: 08/21/24 Loc: Room: [id number]: ADM IN Attending Dr: Enoc Zepeda DO Copies to: MD Enoc Love DO Ordering Provider: Aram Wayne MD; Enoc Zepeda DO Date of Service: 08/22/24 CT/CT guided drainage: Diverticular abscess ([id number]) CT/CT guided catheter placement: , CT guided [...] without epinephrine were used for local anesthesia. [id number] pigtail catheter was advanced into the collection [...] Leyva M.D. 08/22/2024 3:10 PM Dictation Location: [place] [address] Transcribed By: MAGALY 08/22/24 9670 Dictated By: Alex Leyva II, MD 08/22/24 1501 Signed By: <Electronically signed by Alex Leyva II, MD inOV> 08/22/24 1510 us Aram Mendoza MD IMG XR PROCEDURES Final Resu lt documented in this encounter Visit Diagnoses Not on filedocumented in this encounter Care Teams Market Risk Manager Relationship Specialty Start Date End Date Vijay Mckeon DO [address] [place] [address] PCP - General Internal Medicine 08/25/24 documented as of this encounter
--- OUTSIDE RECORDS SUMMARY | 2024-11-15 09:52 | XMS_ITS | Encounter Summary ---
Author Organization [facility] Address [facility] [place] [address] Care Team Providers Care Financial Services Consultant Name Role Phone Unavailable Primary Care Provider Unavailabl e Source Comments In the event this information is protected by the Federal Confidentiality of Alcohol and Drug AbusePatient Records regulations: The Federal rules restrict any use of the information to criminally investigate or prosecute any alcohol or drug abuse patient.[facility] Reason for Visit * Reason Comments Pre-Op Update Pre-op cardiac evalu ation Encounter Details Date Type Department Care Team (Late st Contact Info) Description 11/14/2024 Telephone Pre Anesthesia [address] [place] [address] Devi Nino APRN.[facility] [address] [place] [address] Pre-Op Update (Pre-op cardiac evaluation ) Social History Tobacco Use Types Packs/Day Years [...] is lower risk 9 10/12/2024 Data from: https://www.neighborhoodatlas.medicine.[facility]/. Last address used for calculation [address] 10/12/2024 Sex and Gender Information Value Date Recorded Sex Assigned at Not on file Legal Sex Male 10:45 AM EDT Gender Identity Not on file Sexual Orientation Not on file documented as of this encounter Miscellaneous Notes * Telephone Encounter - Devi Nino APRN.[employer] - 11/14/2024 8:08 AM EDT Schedule patient for pre-op cardiac evaluation. History of CAD and CHF. DOS 12/06/24 documented in this encounter Plan of Treatment Upcoming Encounters Date Type Department Care Team (Latest Contact Info) Description 12/06/2024 9:01 AM EDT Hospital Encounter Admitting [address] [place] [address] Shantell Bennett MD [address] [place] [phone] Diverticulitis [K57.92] 12/06/2024 9:01 AM EDT - 12/06/2024 1:21 PM EDT Surgery Admitting [address] [place] [address] Shantell Bennett MD [address] [place] [phone] ROBOTIC LAPAROSCOPIC COLECTOMY SIGMOID COLON W/ COLORECTAL ANASTOMOSIS 01/04/2025 7:15 AM EDT Procedure Cardiology [address] [place] [address] DX PRE OP //CARDIAC EVALUTION 01/04/2025 8:15 AM EDT Office Visit Cardiology [address] [place] [address] Gio Overton MD [address] [facility], Desk [address] [place] [address] DX PRE OP //CARDIAC EVALUTION 04/03/2025 11:30 AM EST Procedure Pulmonary Medicine [address] [place] [address], Pulm Fct Lab [facility] 9500 [place] [address] Chronic obstructive pulmonary disease, unspecified COPD type (HCC) [J44.9] 04/03/2025 12:00 PM EST Procedure Pulmonary Medicine [address] [place] [address], Pulm Fct Lab [facility] [address] [place], [place] [address] Chronic obstructive pulmonary disease, unspecified COPD type (HCC) [J44.9] 04/03/2025 12:15 PM EST Procedure Pulmonary Medicine [address] [place] [address] 9, Pulm Fct Lab [facility] 9500 [place] [address] Chronic obstructive pulmonary disease, unspecified COPD type (HCC) [J44.9] 04/03/2025 12:30 PM EST Procedure Pulmonary Medicine [address] [place] [address], Pulm Fct Lab [facility] 95[address] [place], [place] [phone] Chronic obstructive pulmonary disease, unspecified COPD type (HCC) [J44.9] 04/03/2025 1:00 PM EST Office Visit Pulmonary Medicine [address] [place] [address] Tari Bailon MD [address] [place], [place] [phone] Follow up 4 months Scheduled Procedures Name Priority Associated Diagnoses Date/Ti me ROBOTIC LAPAROSCOPIC COLECTO MY SIGMOID COLON W/ COLORECTAL ANASTOMOSIS Diverticulitis 12/06/2024 9:01 AM EDT documented as of this encounter Goals Goal Patient Goal Type Associated Problems Recent Progress Patient-Stated? 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 Linen Attendant Care Plan Colonoscopy Linen Attendant No Meliza Gerrijoycemaximo Autogenerated Goal Care Plan Autogenerated Problem No Meghan Oakley documented as of this encounter Visit Diagnoses Diagnosis Pre-op evaluation- Primary Preoperative examination, unspecified Diverticulitis Diverticulitis of colon (without mention of hemorrhage) documented in this encounter Additional Health Concerns Active Problems Noted Date Diagnosed Date Colonoscopy Linen Attendant 10/31/2024 Autogenerated Problem 11/04/2024 documented as of this encounter
--- OUTSIDE RECORDS SUMMARY | 2024-11-15 09:52 | XMS_ITS | Encounter Summary ---
Author Organization [facility] Address [address] [place] [address] Care Team Providers Care Roving Department End Finder Name Role Phone Unavailable Primary Care Provider Unavailabl e Source Comments In the event this information is protected by the Federal Confidentiality of Alcohol and Drug AbusePatient Records regulations: The Federal rules restrict any use of the information to criminally investigate or prosecute any alcohol or drug abuse patient.[facility] Encounter Details Date Type Department Care Team (Late st Contact Info) Description 10/12/2024 Patient Msg Colorectal Surgery [address] [place] [address] Provider, Ccf 11/14 Colonoscopy Prep Instructions Social History Tobacco Use Types Packs/Day [...] lower risk 9 10/12/2024 Data from: https://www.neighborhoodatlas.medicine.[facility]/. Last address used for calculation 1101 [...] AM EDT Hospital Encounter Admitting [address] [place] [address] Shantell Bennett MD [address] [facility] [address] [address] Diverticulitis [K57.92] 12/06/2024 9:01 AM EDT - 12/06/2024 1:21 PM EDT Surgery Admitting [address] [place] [address] Shantell Bennett MD 9500 [facility] [address] [address] ROBOTIC LAPAROSCOPIC COLECTOMY SIGMOID COLON W/ COLORECTAL ANASTOMOSIS 01/04/2025 7:15 AM EDT Procedure Cardiology [address] [place] [address] DX PRE OP //CARDIAC EVALUTION 01/04/2025 8:15 AM EDT Office Visit Cardiology [address] [place] [address] Gio Overton MD 9500 [facility] Desk [address] [place] [address] DX PRE OP //CARDIAC EVALUTION 04/03/2025 11:30 AM EST Procedure Pulmonary Medicine [address] [address], Pulm Fct Lab [facility] 9500 [place] [address] Chronic obstructive pulmonary disease, unspecified COPD type (HCC) [J44.9] 04/03/2025 12:00 PM EST Procedure Pulmonary Medicine [address] [address], Pulm Fct Lab Main [facility] 9500 [place] [address] Chronic obstructive pulmonary disease, unspecified COPD type (HCC) [J44.9] 04/03/2025 12:15 PM EST Procedure Pulmonary Medicine [address] [address], Pulm Fct Lab Main [address] [place] [address] Chronic obstructive pulmonary disease, unspecified COPD type (HCC) [J44.9] 04/03/2025 12:30 PM EST Procedure Pulmonary Medicine [address] [address], Pulm Fct Lab Main 9500 [place] [address] Chronic obstructive pulmonary disease, unspecified COPD type (HCC) [J44.9] 04/03/2025 1:00 PM EST Office Visit Pulmonary Medicine [address] [address] Tari Bailon MD 9506 [place] [address] Follow up 4 months Scheduled Procedures Name Priority Associated Diagnoses Date/Ti ga ROBOTIC LAPAROSCOPIC COLECTO MY SIGMOID COLON W/ COLORECTAL ANASTOMOSIS Diverticulitis 12/06/2024 9:01 AM EDT documented as of this encounter Visit Diagnoses Not on filedocumented in this encounter
--- OUTSIDE RECORDS SUMMARY | 2024-11-15 09:52 | XMS_ITS | Clinical Summary ---
Author Organization [employer] [facility] tem Address [id number] [address] [place] [address] Care Team Providers Care Centrex Radio Operator Name Role Phone Unavailable Primary Care Provider Unavailabl e Social History Tobacco Use Types Packs/Day Years Used Date Smoking Tobacco: Never Assessed Childcare Answer Date Recorded Childcare Unknown 09/01/2018 Employment Answer Date Recorded Employment Unknown 09/01/2018 Sex and Gender Information Value Date Recorded Sex Assigned at Not on file Legal Sex Male 11:44 AM EDT Gender Identity Not on file Sexual Orientation Not on file Plan of Treatment Not on file Medical Devices Not on file
--- OUTSIDE RECORDS SUMMARY | 2024-11-15 09:52 | XMS_ITS | Encounter Summary ---
Author Organization [facility] Address [facility] [place] [address] Care Team Providers Care Tying Machine Operator Name Role Phone Unavailable Primary Care Provider Unavailabl e Source Comments In the event this information is protected by the Federal Confidentiality of Alcohol and Drug AbusePatient Records regulations: The Federal rules restrict any use of the information to criminally investigate or prosecute any alcohol or drug abuse patient.[facility] Encounter Details Date Type Department Care Team (Late st Contact Info) Description 11/14/2024 Patient Msg Gastroenterology [address] [place] [address] Provider, Ccf Colonoscopy Prep Instructions Social History Tobacco Use [...] is lower risk 9 10/12/2024 Data from: https://www.neighborhoodatlas.[facility]/. Last address used for calculation [address] [...] EDT Hospital Encounter Admitting [address] [place] [address] Shantell Bennett MD [address] [address] Diverticulitis [K57.92] 12/06/2024 9:01 AM EDT - 12/06/2024 1:21 PM EDT Surgery Admitting [address] [place] [address] Shantell Bennett MD [address]00 [facility] [address] [address] ROBOTIC LAPAROSCOPIC COLECTOMY SIGMOID COLON W/ COLORECTAL ANASTOMOSIS 01/04/2025 7:15 AM EDT Procedure Cardiology [address] [place] [address] DX PRE OP //CARDIAC EVALUTION 01/04/2025 8:15 AM EDT Office Visit Cardiology [address] [place] [address] Gio Overton MD [address] [place] [address] DX PRE OP //CARDIAC EVALUTION 04/03/2025 11:30 AM EST Procedure Pulmonary Medicine [address] [address], Pulm Fct Lab [facility] 9500 [place] [address] Chronic obstructive pulmonary disease, unspecified COPD type (HCC) [J44.9] 04/03/2025 12:00 PM EST Procedure Pulmonary Medicine [address] [address], Pulm Fct Lab Main [facility] 95[address] [place], [place] [address] Chronic obstructive pulmonary disease, unspecified COPD type (HCC) [J44.9] 04/03/2025 12:15 PM EST Procedure Pulmonary Medicine [address] [place] [address], Pulm Fct Lab Main [address] [place] [address] Chronic obstructive pulmonary disease, unspecified COPD type (HCC) [J44.9] 04/03/2025 12:30 PM EST Procedure Pulmonary Medicine [address] [place] [address], Pulm Fct Lab Main [address] [place], [place] [address] Chronic obstructive pulmonary disease, unspecified COPD type (HCC) [J44.9] 04/03/2025 1:00 PM EST Office Visit Pulmonary Medicine [address] [place] [address] Tari Bailon MD [address] [place] [address] Follow up 4 months Scheduled Procedures Name Priority Associated Diagnoses Date/Ti me ROBOTIC LAPAROSCOPIC COLECTO MY SIGMOID COLON W/ COLORECTAL ANASTOMOSIS Diverticulitis 12/06/2024 9:01 AM EDT documented as of this encounter Goals Goal Patient Goal Type Associated Problems Recent Progress Patient-Stated? 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 Powder Hand Care Plan Colonoscopy Powder Hand No Roxanna Haider Autogenerated Goal Care Plan Autogenerated Problem No Meghan Oakley documented as of this encounter Visit Diagnoses Not on filedocumented in this encounter Additional Health Concerns Active Problems Noted Date Diagnosed Date Colonoscopy Powder Hand 10/31/2024 Autogenerated Problem 11/04/2024 documented as of this encounter
--- OUTSIDE RECORDS SUMMARY | 2024-11-15 09:52 | XMS_ITS | Encounter Summary ---
Author Organization [facility] Address [address] [place] [address] Care Team Providers Care Crop Adjuster Name Role Phone Unavailable Primary Care Provider Unavailabl e Source Comments In the event this information is protected by the Federal Confidentiality of Alcohol and Drug AbusePatient Records regulations: The Federal rules restrict any use of the information to criminally investigate or prosecute any alcohol or drug abuse patient.[facility] Reason for Referral * Outpatient Procedure (Routine) - Authorized Specialty Diagnoses / Procedures Referred By Contac t Referred To Contact [facility] Diagnoses Nonspecific abnormal finding on cardiac evaluation Procedures ECG COMPLETE ECG ROUTINE ECG W/LEAST 12 LDS W/I&R Gio Overton MD [facility] [address] Desk [address] [place] [address] Phone: tel: fax: [facility] [address] [place] [address] Referral ID Status Reason Start Date Expiration Date Visits Requested Visits Authorized [id number] Authorized Auto-Generat ed Referral 11/14/2024 11/14/2025 1 1 * Outpatient Procedure (Routine) - New Request Specialty Diagnoses / Procedures Referred By Contac t Referred To Contact [facility] Diagnoses Diverticulitis Procedures COLONOSCOPY DIAGNOSTIC COLONOSCOPY FLX DX W/COLLJ SPEC WHEN PFRMD Bridgette Joseph MD [address] [place] [address] Phone: tel: fax: [facility] [address] [place] [address] Referral ID Status Reason Start Date Expiration Date Visits Requested Visits Authorized [id number] New Request Auto-Generat ed Referral 11/14/2024 11/14/2025 1 1 Encounter Details Date Type Department Care Team (Late st Contact Info) Description 11/14/2024 Orders Only Gastroenterology [address] [place] [address] Sonal [place] MD 9500 [place] [address] Nonspecific abnormal finding on cardiac evaluation (Primary Dx); Diverticulitis Social History Tobacco Use Types Packs/Day Years [...] risk 9 10/12/2024 Data from: https://www.neighborhoodatlas.medicine.[facility].edu/. Last address used for calculation 1101 [...] AM EDT Hospital Encounter Admitting [address] [place] [address] Shantell Bennett MD [address] [address] Diverticulitis [K57.92] 12/06/2024 9:01 AM EDT - 12/06/2024 1:21 PM EDT Surgery Admitting [address] [place] [address] Shantell Bennett MD [address] [address] ROBOTIC LAPAROSCOPIC COLECTOMY SIGMOID COLON W/ COLORECTAL ANASTOMOSIS 01/04/2025 7:15 AM EDT Procedure Cardiology [address] [place] [address] DX PRE OP //CARDIAC EVALUTION 01/04/2025 8:15 AM EDT Office Visit Cardiology [address] [place] [address] Gio Overton MD [address] [facility] Desk [address] [place] [address] DX PRE OP //CARDIAC EVALUTION 04/03/2025 11:30 AM EST Procedure Pulmonary Medicine [address] [address], Pulm Fct Lab [facility] 9500 [place] [address] Chronic obstructive pulmonary disease, unspecified COPD type (HCC) [J44.9] 04/03/2025 12:00 PM EST Procedure Pulmonary Medicine [address] [address], Pulm Fct Lab [facility] 9500 [place] [address] Chronic obstructive pulmonary disease, unspecified COPD type (HCC) [J44.9] 04/03/2025 12:15 PM EST Procedure Pulmonary Medicine [address] [address], Pulm Fct Lab Main [address] [place] [address] Chronic obstructive pulmonary disease, unspecified COPD type (HCC) [J44.9] 04/03/2025 12:30 PM EST Procedure Pulmonary Medicine [address] [address], Pulm Fct Lab Main [address] [place] [address] Chronic obstructive pulmonary disease, unspecified COPD type (HCC) [J44.9] 04/03/2025 1:00 PM EST Office Visit Pulmonary Medicine [address] [address] Tari Bailon MD [address] [place] [address] Follow up 4 months Scheduled Orders Name Type Priority Associated Diagnoses Orde r Schedule COLONOSCOPY DIAGNOSTIC Endoscopy Routine Diverticulitis 1 Occurrences starting 11/14/2024 until 11/14/2025 ECG COMPLETE ECG Routine Nonspecific abnormal finding on cardiac evaluation 1 Occurrences starting 11/14/2024 until 11/14/2025 Scheduled Procedures Name Priority Associated Diagnoses Date/Ti me ROBOTIC LAPAROSCOPIC COLECTO MY SIGMOID COLON W/ COLORECTAL ANASTOMOSIS Diverticulitis 12/06/2024 9:01 AM EDT documented as of this encounter Goals Goal Patient Goal Type Associated Problems Recent Progress Patient-Stated? 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 Bus Driver School Care Plan Colonoscopy Bus Driver [employer] No Roxanna Haider Autogenerated Goal Care Plan Autogenerated Problem No Meghan Oakley documented as of this encounter Visit Diagnoses Diagnosis Nonspecific abnormal finding on cardiac evaluation- Primary Diverticulitis Diverticulitis of colon (without mention of hemorrhage) Diverticulitis Diverticulitis of colon (without mention of hemorrhage) documented in this encounter Additional Health Concerns Active Problems Noted Date Diagnosed Date Colonoscopy Bus Driver School 10/31/2024 Autogenerated Problem 11/04/2024 documented as of this encounter
--- OUTSIDE RECORDS SUMMARY | 2024-11-15 09:53 | XMS_ITS | Encounter Summary ---
Author Organization Address [facility] [place] [address] Care Team Providers Care Estate Planning Counselor Name Role Phone Unavailable Primary Care Provider Unavailabl e Source Comments In the event this information is protected by the Federal Confidentiality of Alcohol and Drug AbusePatient Records regulations: The Federal rules restrict any use of the information to criminally investigate or prosecute any alcohol or drug abuse patient. Encounter Details Date Type Department Care Team (Late st Contact Info) Description 11/07/2024 GI Preprocedure Call Gastroenterology [address] [place] [address] Carolyn Harris, RN Social History Tobacco Use Types Packs/Day Years [...] is lower risk 9 10/12/2024 Data from: https://www.[facility]/. Last address used for calculation [address] 10/12/2024 Sex and Gender Information Value Date Recorded Sex Assigned at Not on file Legal Sex Male 10:45 AM EDT Gender Identity Not on file Sexual Orientation Not on file documented as of this encounter Nursing Notes * Carolyn Harris RN - 11/07/2024 3:35 PM EDT Attempted to reach the patient at the contact number that they provided [phone] (home) . Unable to speak with patient so without identifying the patient the following information was left on their voice mail: Date of procedure, location and report time Prep instructions A message was left informing the patient/patient service center representative they must have a responsible adult accompany them to their procedure; and remain in the endoscopy area until they are discharged. Failure to have a responsible adult accompany the patient to their procedure appointment prevents the useof sedation or anesthesia for their procedure; and can result in cancellation of the procedure NPO instructions were reviewed. Clear liquids the day before the procedure, stop all liquids 4 hours before the procedure Instructions to contact their primary care provider regarding their medications and which medications to stop in preparation for their procedure Instructions to completely read and follow the written instructions that they recieved regarding their procedure. Number to call with questions or concerns [phone] Number to call to cancel their procedure [phone] Carolyn Harris RN documented in this encounter Plan of Treatment Upcoming Encounters Date Type Department Care Team (Latest Contact Info) Description 12/06/2024 9:01 AM EDT Hospital Encounter Admitting [address] [place] [address] Shantell Bennett MD [address] [place] [address] Diverticulitis [K57.92] 12/06/2024 9:01 AM EDT - 12/06/2024 1:21 PM EDT Surgery Admitting [address] [place] [address] Shantell Bennett MD [address] [place] [address] ROBOTIC LAPAROSCOPIC COLECTOMY SIGMOID COLON W/ COLORECTAL ANASTOMOSIS 01/04/2025 7:15 AM EDT Procedure Cardiology [address] [place] [address] DX PRE OP //CARDIAC EVALUTION 01/04/2025 8:15 AM EDT Office Visit Cardiology [address] [place] [address] Gio Overton MD [address] [place], [place] [id number] DX PRE OP //CARDIAC EVALUTION 04/03/2025 11:30 AM EST Procedure Pulmonary Medicine [address] [place] [address], Pulm Fct Lab [facility] [address] [place] [address] Chronic obstructive pulmonary disease, unspecified COPD type (HCC) [J44.9] 04/03/2025 12:00 PM EST Procedure Pulmonary Medicine [address] [address], Pulm Fct Lab [facility] [address] [place] [address] Chronic obstructive pulmonary disease, unspecified COPD type (HCC) [J44.9] 04/03/2025 12:15 PM EST Procedure Pulmonary Medicine [address] [address], Pulm Fct Lab [facility] [address] [place] [address] Chronic obstructive pulmonary disease, unspecified COPD type (HCC) [J44.9] 04/03/2025 12:30 PM EST Procedure Pulmonary Medicine [address] [address], Pulm Fct Lab [facility] [address]00 [place] [address] Chronic obstructive pulmonary disease, unspecified COPD type (HCC) [J44.9] 04/03/2025 1:00 PM EST Office Visit Pulmonary Medicine [address] [address] Tari Bailon MD [address] [place] [address] Follow up 4 months Scheduled Procedures Name Priority Associated Diagnoses Date/Ti me ROBOTIC LAPAROSCOPIC COLECTO MY SIGMOID COLON W/ COLORECTAL ANASTOMOSIS Diverticulitis 12/06/2024 9:01 AM EDT documented as of this encounter Goals Goal Patient Goal Type Associated Problems Recent Progress Patient-Stated? 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 Public Information Relations Manager Care Plan Colonoscopy Public Information Relations Manager No Roxanna Haider Autogenerated Goal Care Plan Autogenerated Problem No Meghan Oakley documented as of this encounter Visit Diagnoses Not on filedocumented in this encounter Additional Health Concerns Active Problems Noted Date Diagnosed Date Colonoscopy Public Information Relations Manager 10/31/2024 Autogenerated Problem 11/04/2024 documented as of this encounter
--- OUTSIDE RECORDS SUMMARY | 2024-11-15 09:53 | XMS_ITS | Encounter Summary ---
Author Organization [facility] Address [address] [place] [address] Care Team Providers Care Tobacco Packing Machine Operator Name Role Phone Vijay Mckeon DO Primary Care Provider [phone] Encounter Details Date Type Department Care Team (Late st Contact Info) Description 08/30/2024 Orders Only [facility] [address] [address] Aram Wayne MD [address] [address] Social History Tobacco Use Types [...] on filedocumented in this encounter Care Teams Tobacco Packing Machine Operator Relationship Specialty Start Date End Date Vijay Mckeon DO [address] [facility] [place] [id number] PCP - General Internal Medicine 08/25/24 documented as of this encounter
--- OUTSIDE RECORDS SUMMARY | 2024-11-15 09:53 | XMS_ITS | Encounter Summary ---
Author Organization [facility] Address [facility] [place] [address] Care Team Providers Care Data Operations Leader Name Role Phone Unavailable Primary Care Provider Unavailabl e Source Comments In the event this information is protected by the Federal Confidentiality of Alcohol and Drug AbusePatient Records regulations: The Federal rules restrict any use of the information to criminally investigate or prosecute any alcohol or drug abuse patient.[facility] Encounter Details Date Type Department Care Team (Late st Contact Info) Description 10/31/2024 [place] [address] Provider, [facility] Colonoscopy Prefitter Doors Enrollment Social History Tobacco Use Types Packs/Day Years [...] is lower risk 9 10/12/2024 Data from: https://www.neighborhoodatlas.medicine.[facility].edu/. Last address used for calculation [address] [...] 9:01 AM EDT Hospital Encounter Admitting [address] [place] [id number] Shantell Bennett MD [address] [address] Diverticulitis [K57.92] 12/06/2024 9:01 AM EDT - 12/06/2024 1:21 PM EDT Surgery Admitting [address] [place] [address] Shantell Bennett MD [address] [address] ROBOTIC LAPAROSCOPIC COLECTOMY SIGMOID COLON W/ COLORECTAL ANASTOMOSIS 01/04/2025 7:15 AM EDT Procedure Cardiology [address] [place] [address] DX PRE OP //CARDIAC EVALUTION 01/04/2025 8:15 AM EDT Office Visit Cardiology [address] [place] [address] Gio Overton MD [address] [facility] [address] [place] [address] DX PRE OP //CARDIAC EVALUTION 04/03/2025 11:30 AM EST Procedure Pulmonary Medicine [address] [address], Pulm Fct Lab [facility] [address] [place] [address] Chronic obstructive pulmonary disease, unspecified COPD type (HCC) [J44.9] 04/03/2025 12:00 PM EST Procedure Pulmonary Medicine [address] [address], Pulm Fct Lab Main [facility] [address] [place] [address] Chronic obstructive pulmonary disease, unspecified COPD type (HCC) [J44.9] 04/03/2025 12:15 PM EST Procedure Pulmonary Medicine [address] [address], Pulm Fct Lab Main [address] [place] [address] Chronic obstructive pulmonary disease, unspecified COPD type (HCC) [J44.9] 04/03/2025 12:30 PM EST Procedure Pulmonary Medicine [address] [address], Pulm Fct Lab Main [address] [place] [address] Chronic obstructive pulmonary disease, unspecified COPD type (HCC) [J44.9] 04/03/2025 1:00 PM EST Office Visit Pulmonary Medicine [address] [address] Tari Bailon MD [address] [place] [address] Follow up 4 months Scheduled Procedures Name Priority Associated Diagnoses Date/Ti me ROBOTIC LAPAROSCOPIC COLECTO MY SIGMOID COLON W/ COLORECTAL ANASTOMOSIS Diverticulitis 12/06/2024 9:01 AM EDT documented as of this encounter Goals Goal Patient Goal Type Associated Problems Recent Progress Patient-Stated? 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 Prefitter Doors Care Plan Colonoscopy Prefitter Doors No Meliza, Roxanna documented as of this encounter Visit Diagnoses Not on filedocumented in this encounter Additional Health Concerns Active Problems Noted Date Diagnosed Date Colonoscopy Prefitter Doors 10/31/2024 documented as of this encounter
--- OUTSIDE RECORDS SUMMARY | 2024-11-15 09:59 | XMS_ITS | CCD ---
Author Organization [facility] Care Team Providers Care Planisher Name Role Phone VIJAY LOZANO Primary Care Physician Vijay Lozano Unavailable Sonny Pate Unavailable DR VIJAY LOZANO Primary Care Unavailable ALGHOTHMICHELLE, YAEL Admitting Unavailable ALGHOTHMICHELLE, YAEL Attending Unavailable ALGHOTHMICHELLE, YAEL Consulting Unavailable MARTA, DR BARRERA Primary Care Unavailable BALL, DR BARRERA Admitting Unavailable BALL, DR BARRERA Attending Unavailable BALL, DR BARRERA Consulting Unavailable MARTA, DR BARRERA Primary Care Unavailable BALL, DR [...] Admitting Unavailable NILL, Bill Hua Attending Unavailable ALGHOTHANI, YAEL Attending Unavailable ALGHOTHANI, YAEL Attending Unavailable MOUKARBNORMA ECHEVARRIA Attending Unavailable Vijay Lozano DO Primary Care Provider Nicholas Valle MD Emergency Provider Tiffany Masters MD Admit Provider Tiffany Masters MD Attending Provider Ines Wayne MD Other Provider Enoc Zepeda DO Attending Provider Vijay Lozano DO Primary Care Provider Radha Burns CMA Attending Provider Unavaila ble Vijay Lozano DO Attending Provider Ines Wayne MD Attending Provider [phone] Kanwal Koroma APRN Emergency Provider Navarro Ballesteros DO Admit Provider Navarro Ballesteros DO Attending Provider Esdras Muñoz MD Attending Provider [phone] Juan Diego Haywood DPM Other Provider [phone] Unavailable Primary Care Provider UnavailNIKOLAS Carrillo Attending Unavailable WAYNE V, INES Attending Unavailable WAYNE V, INES Attending Unavailable WAYNE Kelly, INES Attending Unavailable JUAN DIEGO HAYWOOD Attending Unavailable Tone, Ines Admitting Unavailable Ines Wayne Attending Unavailable Vijay Lozano Primary Care Unavailable Vijay Lozano Primary Care Unavailable Ines Wayne Consulting Unavailable Tiffany Masters Admitting Unavailable Enoc Zepeda Attending Unavailable Navarro Ballesteros Admitting Unavailabl e Tone, Ines Consulting Unavailable Esdras Muñoz Attending Unavailable Vijay Lozano Primary Care Unavailable Juan Diego Haywood Consulting Unavailable BRIDGETTE SHAVER Attending UnavailSTEPHENIE Hicks Referring Unavai lable HATIPOGLU, UMUR Referring Unavailable GORGUN, I CYNDI Referring Unavailable HATIPOGLU, UMUR Attending Unavailable GORGUN, I CYNDI Referring Unavailable GORGUN, I CYNDI Attending Unavailable GORGUN, I CYNDI Referring Unavailable GORGUN, I CYNDI Referring Unavailable GORGUN, I CYNDI Referring Unavailable GORGUN, I CYNDI Referring Unavailable Allergies Allergy Classification Reported Allergen(s) Allergy Type Date of Onset Reaction(s) Facility (1 source) No Known Medication Allergies; Translations: [No Known Medication Allergies] Propensity to adverse reactions (disorder) [facility] Repository (1 source) patient allergy list reviewed by nurse or physicia Propensity to adverse reactions 9 Comment:Done [employer] Other (20 sources) Lisinopril; Translations: [LISINOPRIL] Drug Allergy 3 [facility] Repository (13 sources) Morphine; Translations: [MORPHINE] Drug Allergy 5 Other: See Comments [facility] Medications Current Medications Medication Drug Class(es) Dates Sig (Normalized) Sig (Original) acetaminophen 325 mg oral tablet (4 sources) Start: 08-24-2024 take 1-3 tablets by mouth every six hours as needed for pain Acetaminophen (Tylenol) 325 mg Tablet Active 650 MG PO Every 6 hours as needed for Pain Scale 1 - 3 or fever 60 August 24, 2024 12:00am Complies with drug therapy amoxicillin 875 mg / clavulanate 125 mg oral tablet (18 sources) Penicillin-class Antibacterial Start: 10-07-2024 take 1 tablet by mouth every twelve hours amoxicillin-clavul anate potassium (AUGMENTIN) 875-125 mg per tablet Take 1 tablet by mouth every 12 hours. 10/07/2024 Active Start: 10-07-2024 End: 10-14-2024 take 1 tablet by mouth twice daily Amoxicillin-Pot Clavulanate 875-125 mg Tablet Discontinued 1 TAB PO Twice daily 09 01October 07, 2024 12:00am October 14, 2024 12:54pm Start: 08-24-2024 End: 10-04-2024 take 1 tablet by mouth twice daily Amoxicillin-Pot Clavulanate 875-125 mg tablet Discontinued 1 TAB PO Twice daily 15 03August 24, 2024 12:00am October 04, 2024 7:00pm aspirin 81 mg delayed release oral tablet (20 sources) Platelet Aggregation Inhibitor, Nonsteroidal Anti-inflammatory Drug Start: 03-30-2022 take 1 tablet by mouth once daily Aspirin 81 mg tablet,delayed release (DR/EC) Active 81 MG PO Daily April 10, 2024 1:00am Complies with drug therapy atorvastatin 80 mg oral tablet (20 sources) HMG-CoA Reductase Inhibitor Start: 04-10-2024 take 1 tablet by mouth once daily in the evening Atorvastatin 80 mg tablet Active 80 MG PO Every evening April 10, 2024 1:00am Complies with drug therapy Start: 04-18-2022 take 1 tablet by rex th once daily atorvastatin 40 mg Tab 40 [...] blood pressure Start Date: 04/18/22 Status: Ordered 120 actuat formoterol fumarate 0.0048 mg/actuat / glycopyrrolate 0.009 mg/actuat metered dose inhaler (1 source) beta2-Adrenergic Agonist Start: 11-14-2024 glycopyrrolate-fo rmoterol (BEVESPI AEROSPHERE) 9-4.8 mcg Inhale 2 puffs as instructed two times a day. 10.7 g 5 11/14/2024 Active ipratropium bromide 0.042 mg/actuat metered dose nasal spray (8 sources) Anticholinergic Start: 10-14-2024 take 2 spray(s) nasal route three to four times daily ipratropium bromide (ATROVENT) 42 mcg (0.06 %) nasal spray instill 2 (TWO) sprays IN EACH NOSTRIL 3 TO 4 times daily 10/14/2024 Active Start: 10-14-2024 End: 10-14-2024 take 1 spray(s) nasal route three to four times daily Ipratropium [place] 42 mcg (0.06 %) spray,non-aerosol Active 2 SPRAY INTRANASAL 3 to 4 times per day October 14, 2024 12:53pm administer into each nostril Complies with drug therapy Ipratropium Brom jessica 0.06 % instill 2 (TWO) sprays IN EACH NOSTRIL TWICE DAILY - THREE TIMES DAILY for 30 Active loratadine 10 mg oral tablet (3 sources) Start: 03-25-2022 take 1 tablet by mouth once daily loratadine 10 mg Tab 10 mg = 1 tab(s), Oral, Daily, Refills(s) 0, Allergy symptoms Start Date: 03/25/22 Status: Ordered losartan potassium 25 mg oral tablet (20 sources) Angiotensin 2 Receptor Jeff Start: 04-10-2024 take 1 tablet by mouth at bedtime Losartan 25 mg tablet Active 25 MG PO Bedtime April 10, 2024 1:00am Complies with drug therapy 24 hr metoprolol succinate 100 mg extended release oral tablet (20 sources) beta-Adrenergic Jeff Start: 04-10-2024 take 1 tablet by mouth once daily Metoprolol Succinate 100 mg tablet extended release 24 hr Active 100 MG PO Daily April 10, 2024 1:00am Start: 04-10-2024 take 1 tablet by rex th every twenty-four hours at bedtime Metoprolol Succinate 100 mg tablet extended release 24 hr Active 100 MG PO Bedtime April 10, 2024 1:00am Complies with drug therapy Start: 04-10-2022 take 1 tablet by rex th every twenty-four hours Metoprolol Succinate ER 25 MG 1 tablet Orally Once a day for 30 day(s) Mar, Active metroNIDAZOLE 500 mg oral tablet (15 sources) Nitroimidazole Antimicrobial Start: 12-05-2024 metroNIDAZOLE (FLAGYL) 500 mg tablet Take 1 tablet by mouth at 9pm and take 1 tablet by mouth at 11pm the night before surgery. Patient should start on December 05, 2024. 2 tablet 12/05/2024 Active Start: 12-05-2024 metroNIDAZOLE (FLAGYL) 500 mg tablet Take 1 tablet by mouth at 9pm and take 1 tablet by mouth at 11pm the night before surgery. Patient should start on December 05, 2024. 2 tablet 12/05/2024 Active Start: 12-05-2024 metroNIDAZOLE (FLAGYL) 500 mg tablet Take 1 tablet by mouth at 9pm and take 1 tablet by mouth at 11pm the night before surgery. Patient should start on December 05, 2024. 2 tablet 12/05/2024 Active Start: 12-05-2024 metroNIDAZOLE (FLAGYL) 500 mg tablet Take 1 tablet by mouth at 9pm and take 1 tablet by mouth at 11pm the night before surgery. Patient should start on December 05, 2024. 2 tablet 12/05/2024 Active Start: 12-05-2024 metroNIDAZOLE (FLAGYL) 500 mg tablet Take 1 tablet by mouth at 9pm and take 1 tablet by mouth at 11pm the night before surgery. Patient should start on December 05, 2024. 2 tablet 12/05/2024 Active Start: 12-05-2024 metroNIDAZOLE (FLAGYL) 500 mg tablet Take 1 tablet by mouth at 9pm and take 1 tablet by mouth at 11pm the night before surgery. Patient should start on December 05, 2024. 2 tablet 12/05/2024 Active Start: 12-05-2024 metroNIDAZOLE (FLAGYL) 500 mg tablet Take 1 tablet by mouth at 9pm and take 1 tablet by mouth at 11pm the night before surgery. Patient should start on December 05, 2024. 2 tablet 12/05/2024 Active Start: 12-05-2024 metroNIDAZOLE (FLAGYL) 500 mg tablet Take 1 tablet by mouth at 9pm and take 1 tablet by mouth at 11pm the night before surgery. Patient should start on December 05, 2024. 2 tablet 12/05/2024 Active Start: 12-05-2024 metroNIDAZOLE (FLAGYL) 500 mg tablet Take 1 tablet by mouth at 9pm and take 1 tablet by mouth at 11pm the night before surgery. Patient should start on December 05, 2024. 2 tablet 12/05/2024 Active Start: 12-05-2024 metroNIDAZOLE (FLAGYL) 500 mg tablet Take 1 tablet by mouth at 9pm and take 1 tablet by mouth at 11pm the night before surgery. Patient should start on December 05, 2024. 2 tablet 12/05/2024 Active Start: 12-05-2024 metroNIDAZOLE (FLAGYL) 500 mg tablet Take 1 tablet by mouth at 9pm and take 1 tablet by mouth at 11pm the night before surgery. Patient should start on December 05, 2024. 2 tablet 12/05/2024 Active Start: 08-24-2024 End: 10-04-2024 take 1 tablet by mouth twice daily Metronidazole 500 mg tablet Discontinued 500 MG PO Twice daily 15 03August 24, 2024 12:00am October 04, 2024 7:00pm neomycin sulfate 500 mg oral tablet (11 sources) Aminoglycoside Antibacterial Start: 12-05-2024 neomycin 500 mg tablet Take 2 tablets by mouth at 9pm and take 2 tablets by mouth at 11pm the night before surgery. Patient should start on December 05, 2024. 4 tablet 12/05/2024 Active Start: 12-05-2024 neomycin 500 m g tablet Take 2 tablets by mouth at 9pm and take 2 tablets by mouth at 11pm the night before surgery. Patient should start on December 05, 2024. 4 tablet 12/05/2024 Active Start: 12-05-2024 neomycin 500 m g tablet Take 2 tablets by mouth at 9pm and take 2 tablets by mouth at 11pm the night before surgery. Patient should start on December 05, 2024. 4 tablet 12/05/2024 Active Start: 12-05-2024 neomycin 500 m g tablet Take 2 tablets by mouth at 9pm and take 2 tablets by mouth at 11pm the night before surgery. Patient should start on December 05, 2024. 4 tablet 12/05/2024 Active Start: 12-05-2024 neomycin 500 m g tablet Take 2 tablets by mouth at 9pm and take 2 tablets by mouth at 11pm the night before surgery. Patient should start on December 05, 2024. 4 tablet 12/05/2024 Active Start: 12-05-2024 neomycin 500 m g tablet Take 2 tablets by mouth at 9pm and take 2 tablets by mouth at 11pm the night before surgery. Patient should start on December 05, 2024. 4 tablet 12/05/2024 Active Start: 12-05-2024 neomycin 500 m g tablet Take 2 tablets by mouth at 9pm and take 2 tablets by mouth at 11pm the night before surgery. Patient should start on December 05, 2024. 4 tablet 12/05/2024 Active Start: 12-05-2024 neomycin 500 m g tablet Take 2 tablets by mouth at 9pm and take 2 tablets by mouth at 11pm the night before surgery. Patient should start on December 05, 2024. 4 tablet 12/05/2024 Active Start: 12-05-2024 neomycin 500 m g tablet Take 2 tablets by mouth at 9pm and take 2 tablets by mouth at 11pm the night before surgery. Patient should start on December 05, 2024. 4 tablet 12/05/2024 Active Start: 12-05-2024 neomycin 500 m g tablet Take 2 tablets by mouth at 9pm and take 2 tablets by mouth at 11pm the night before surgery. Patient should start on December 05, 2024. 4 tablet 12/05/2024 Active Start: 12-05-2024 neomycin 500 m g tablet Take 2 tablets by mouth at 9pm and take 2 tablets by mouth at 11pm the night before surgery. Patient should start on December 05, 2024. 4 tablet 12/05/2024 Active polyethylene glycol 3350 174723 mg / potassium chloride 2970 mg / sodium bicarbonate 6740 mg / sodium chloride 5860 mg / sodium sulfate 29648 mg powder for oral solution (20 sources) Osmotic Laxative Start: 12-05-2024 End: 11-14-2024 peg 3350-Electrolytes (GOLYTELY) 236-22.74-6.74 -5.86 gram suspension Refer to printed patient instructions that will be mailed to you. Patient should start on December 05, 2024. 1 each 12/05/2024 11/14/2024 Discontinued (Discontinued by Patient) Start: 12-05-2024 End: 11-14-2024 peg 3350-Electrolytes (GOLYT ALBERTO) 236-22.74-6.74 -5.86 gram suspension Refer to printed patient instructions that will be mailed to you. Patient should start on December 05, 2024. 1 each 12/05/2024 11/14/2024 Discontinued (Discontinued by Patient) Start: 12-05-2024 End: 11-14-2024 peg 3350-Electrolytes (GOLYT ALBERTO) 236-22.74-6.74 -5.86 gram suspension Refer to printed patient instructions that will be mailed to you. Patient should start on December 05, 2024. 1 each 12/05/2024 11/14/2024 Discontinued (Discontinued by Patient) Start: 12-05-2024 End: 11-14-2024 peg 3350-Electrolytes (GOLYT ALBERTO) 236-22.74-6.74 -5.86 gram suspension Refer to printed patient instructions that will be mailed to you. Patient should start on December 05, 2024. 1 each 12/05/2024 11/14/2024 Discontinued (Discontinued by Patient) Start: 12-05-2024 End: 11-14-2024 peg 3350-Electrolytes (GOLYT ALBERTO) 236-22.74-6.74 -5.86 gram suspension Refer to printed patient instructions that will be mailed to you. Patient should start on December 05, 2024. 1 each 12/05/2024 11/14/2024 Discontinued (Discontinued by Patient) Start: 12-05-2024 peg 3350-Elect rolytes (GOLYTELY) 236-22.74-6.74 -5.86 gram suspension Refer to printed patient instructions that will be mailed to you. Patient should start on December 05, 2024. 1 each 12/05/2024 Active Start: 12-05-2024 peg 3350-Elect rolytes (GOLYTELY) 236-22.74-6.74 -5.86 gram suspension Refer to printed patient instructions that will be mailed to you. Patient should start on December 05, 2024. 1 each 12/05/2024 Active Start: 12-05-2024 peg 3350-Elect rolytes (GOLYTELY) 236-22.74-6.74 -5.86 gram suspension Refer to printed patient instructions that will be mailed to you. Patient should start on December 05, 2024. 1 each 12/05/2024 Active Start: 12-05-2024 peg 3350-Elect rolytes (GOLYTELY) 236-22.74-6.74 -5.86 gram suspension Refer to printed patient instructions that will be mailed to you. Patient should start on December 05, 2024. 1 each 12/05/2024 Active Start: 12-05-2024 peg 3350-Elect rolytes (GOLYTELY) 236-22.74-6.74 -5.86 gram suspension Refer to printed patient instructions that will be mailed to you. Patient should start on December 05, 2024. 1 each 12/05/2024 Active Start: 12-05-2024 peg 3350-Elect rolytes (GOLYTELY) 236-22.74-6.74 -5.86 gram suspension Refer to printed patient instructions that will be mailed to you. Patient should start on December 05, 2024. 1 each 12/05/2024 Active Start: 11-13-2024 End: 11-14-2024 peg 3350-Electrolytes (GOLYT ALBERTO) 236-22.74-6.74 -5.86 gram suspension Refer to printed prep instructions from your provider. 4000 mL 11/14/2024 Active Start: 11-13-2024 peg 3350-Elect rolytes (GOLYTELY) 236-22.74-6.74 -5.86 gram suspension Refer to printed patient instructions that will be mailed to you. Patient should start on November 13, 2024. 1 each 11/13/2024 Active Start: 11-13-2024 peg 3350-Elect rolytes (GOLYTELY) 236-22.74-6.74 -5.86 gram suspension Refer to printed patient instructions that will be mailed to you. Patient should start on November 13, 2024. 1 each 11/13/2024 Active Start: 11-13-2024 peg 3350-Elect rolytes (GOLYTELY) 236-22.74-6.74 -5.86 gram suspension Refer to printed patient instructions that will be mailed to you. Patient should start on November 13, 2024. 1 each 11/13/2024 Active Start: 11-13-2024 peg 3350-Elect rolytes (GOLYTELY) 236-22.74-6.74 -5.86 gram suspension Refer to printed patient instructions that will be mailed to you. Patient should start on November 13, 2024. 1 each 11/13/2024 Active Start: 11-13-2024 peg 3350-Elect rolytes (GOLYTELY) 236-22.74-6.74 -5.86 gram suspension Refer to printed patient instructions that will be mailed to you. Patient should start on November 13, 2024. 1 each 11/13/2024 Active Start: 11-13-2024 peg 3350-Elect rolytes (GOLYTELY) 236-22.74-6.74 -5.86 gram suspension Refer to printed patient instructions that will be mailed to you. Patient should start on November 13, 2024. 1 each 11/13/2024 Active spironolactone 25 mg oral tablet (20 sources) Aldosterone Antagonist Start: 04-10-2024 take 1 tablet by mouth once daily in the morning Spironolactone 25 mg tablet Active 25 MG PO Every morning April 10, 2024 1:00am Complies with drug therapy Completed/Discontinued Medications Medication Drug Class(es) Dates Sig (Normalized) Sig (Original) cefTRIAXone (9 sources) Cephalosporin Antibacterial Start: 07-29-2017 Rocephin 500 mg July, 1000 mg dicyclomine hydrochloride 20 mg oral tablet (5 sources) Anticholinergic Start: 04-10-2024 End: 08-21-2024 take 1 tablet by mouth three times daily as needed for pain Dicyclomine 20 mg tablet Discontinued 20 MG PO Three times daily as needed for abdominal pain April 10, 2024 1:00am August 21, 2024 12:50pm 1 ml fentaNYL 0.05 mg/ml injection (1 source) Opioid Agonist Start: 11-14-2024 End: 11-14-2024 INTRAVENOUS, X (OR/PROCEDURE) PRN, Starting on Thu11/14/24 at 1218, Until Thu11/14/24 at 1221, Intraprocedure levoFLOXacin 750 mg oral tablet (3 sources) Quinolone Antimicrobial Start: 08-25-2024 End: 10-04-2024 take 1 tablet by mouth once daily Levofloxacin 750 mg tablet Discontinued 750 MG PO Daily August 25, 2024 12:00am October 04, 2024 7:01pm 5 ml midazolam 1 mg/ml injection (1 source) Benzodiazepine Start: 11-14-2024 End: 11-14-2024 INTRAVENOUS, X (OR/PROCEDURE) PRN, Starting on Thu11/14/24 at 1218, Until Thu11/14/24 at 1221, Intraprocedure 1000 ml sodium chloride 9 mg/ml injection (1 source) Start: 11-14-2024 End: 11-14-2024 INTRAVENOUS, X (OR/PROCEDURE) CONTINUOUS, Starting on Thu11/14/24 at 1224, Until Thu11/14/24 at 1224, Intraprocedure Problems Active Problems Problem Classification Problem Date Documented Da te Episodic/Chronic Abdominal pain (5 sources) Finding of sensation of abdomen; Translations: [Unspecified abdominal pain] 04-10-2024 Episodic Acute bronchitis (2 sources) Acute bronchitis; Translations: [Acute bronchitis due to other specified organisms] Episodic Cardiac dysrhythmias (12 sources) Sinus tachycardia; Translations: [Tachycardia, unspecified] Onset: 08-01-2024 Episodic Chronic obstructive pulmonary disease and bronchiectasis (6 sources) Chronic obstructive lung disease; Translations: [Chronic obstructive pulmonary disease, unspecified] 11-14-2024 Chronic Congestive heart failure; nonhypertensive (20 sources) Unspecified systolic (congestive) heart failure; Translations: [Heart failure, unspecified] Onset: 04-10-2022 Chronic Comment on above: Echocardiogram: LVEF 40% - 2022,Echo: LVEF 40-50% - 2023 Coronary atherosclerosis and other heart disease (20 sources) Coronary arteriosclerosis; Translations: [Atherosclerotic heart disease of [place] coronary artery without angina pectoris] Onset: 07-16-2022 Chronic Comment on above: LHC: occluded RCA, o ccluded OM branch, mod LAD - 04/2022,Echo: LVEF 45%, normal RV size/function - 07/2023 Disorders of lipid metabolism (20 sources) Hypercholesterolemia ; Translations: [Pure hypercholesterolemia , unspecified] Onset: 07-16-2022 Chronic Diverticulosis and diverticulitis (20 sources) Diverticula of intestine; Translations: [Diverticulosis of large intestine without perforation or abscess without bleeding] Onset: 04-18-2022 Chronic Essential hypertension (7 sources) Essential (primary) hypertension; Translations: [Hypertensive disorder] Onset: 08-01-2024 Chronic Heart valve disorders (1 source) Nonrheumatic mitral (valve) insufficiency; Translations: [NONRHEUMATIC MITRAL INSUFFICIENCY] Onset: 04-12-2022 Chronic Osteoarthritis (1 source) Localized, primary osteoarthritis of the shoulder region; Translations: [Primary osteoarthritis, unspecified shoulder] Onset: 06-04-2018 Chronic Other circulatory disease (1 source) Cardiac finding; Translations: [Other specified symptoms and signs involving the circulatory and respiratory systems] 11-14-2024 Episodic Other connective tissue disease (6 sources) Pain in right foot; Translations: [Pain in right foot] 10-04-2024 Episodic Other connective tissue disease (1 source) Pain in right foot; Translations: [Pain in right foot] Onset: 10-04-2024 Episodic Other gastrointestinal disorders (2 sources) Abnormal feces; Translations: [Other fecal abnormalities] Onset: 03-25-2022 Episodic Other gastrointestinal disorders (2 sources) Fistula of intestine; Translations: [Fistula of sigmoid colon] 10-23-2024 Episodic Other lower respiratory disease (3 sources) Shortness of breath; Translations: [Shortness of breath] Onset: 08-01-2024 Episodic Other lower respiratory disease (1 source) Dyspnea on exertion; Translations: [Other forms of dyspnea] 10-12-2024 Episodic Other lower respiratory disease (2 sources) Dyspnea; Translations: [Shortness of breath] 11-14-2024 Episodic Other screening for suspected conditions (not mental disorders or infectious disease) (8 sources) Stool DNA-based colorectal cancer screening positive; Translations: [Encounter for screening for malignant neoplasm of prostate] Onset: 02-04-2022 03-19-2022 Episodic Other skin disorders (2 sources) Abnormal granulation tissue; Translations: [Other hypertrophic disorders of the skin] 10-03-2024 Episodic Other upper respiratory disease (4 sources) Vasomotor rhinitis; Translations: [Vasomotor rhinitis] 03-19-2022 Chronic Residual codes; unclassified (1 source) Family history of ischemic heart disease and other diseases of the circulatory system Episodic Retinal detachments; defects; vascular occlusion; and retinopathy (20 sources) Branch retinal vein occlusion with macular edema; Translations: [Tributary (branch) retinal vein occlusion, left eye, with macular edema] Onset: 04-07-2022 Chronic Screening and history of mental health and substance abuse codes (5 sources) Ex-smoker; Translations: [Personal history of nicotine dependence] Onset: 11-14-2024 11-14-2024 Episodic Skin and subcutaneous tissue infections (9 sources) Abscess of groin; Translations: [Cutaneous abscess of groin] Onset: 03-23-2024 10-04-2024 Episodic Substance-related disorders (20 sources) Nicotine dependence; Translations: [Nicotine dependence, cigarettes, uncomplicated] 03-19-2022 Chronic Unclassified (6 sources) A [facility] screening has identified you as FRAIL or AT RISK FOR FRAILTY. This puts you at a higher risk for infection, illness, falls, and other injuries. Here are four ways to help you reduce your risk of frailty: 1. IDENTIFY EARLY SIGNS OF FRAILTY Discuss contributing factors and concerns with your doctor 2. BE ACTIVE Walking and light strengthening exercises will help reduce weakness 3. EAT WELL Aim for three healthy meals a day that are high in protein 4. THINK POSITIVE Keep your mind active by being sociable and continuing to learn References: Stay Strong: Four Ways to Beat the Frailty Risk [email or web address] [email or web address]-nso-vqnaltnp [email or web address]-jyylco-mhqy- xdyg-ee-cdwj-the-fra ilty-[email or web address] 08-23-2024 Unclassified (6 sources) You have been scheduled for a follow up appointment for the following date and time, please call to reschedule if needed. Unclassified (4 sources) Please keep your appointment as scheduled. Unclassified (4 sources) Post hospital appointment. Please call to reschedule if needed. 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 Onset: 10-31-2024 10-31-2024 Unclassified (6 sources) Autogenerated Problem Onset: 11-04-2024 11-04-2024 Unclassified (1 source) Cardiac finding 11-14-2024 Unclassified (1 source) New Patient Onset: 11-14-2024 Viral infection (1 source) Disease caused by 2019-nCoV; Translations: [COVID-19] Past or Other Problems Problem Classification Problem Date Documented Da te Episodic/Chronic Bacterial infection; unspecified site (1 source) Bacterial infectious disease; Translations: [Bacterial infection, unspecified, in conditions classified elsewhere and of unspecified site] Onset: 04-24-2017 Episodic Diabetes mellitus without complication (19 sources) Impaired fasting glycemia; Translations: [Impaired fasting glucose] Onset: 07-16-2022 03-19-2022 Episodic Other upper respiratory infections (1 source) Acute maxillary sinusitis; Translations: [Acute maxillary sinusitis, unspecified] Onset: 04-24-2017 Episodic Residual codes; unclassified (2 sources) Tobacco user; Translations: [Nondependent tobacco use disorder] Onset: 02-06-2015 Episodic Unclassified (1 source) Exposure to 2019 novel coronavirus; Translations: [Contact with and (suspected) exposure to COVID19] Unclassified (3 sources) Patient encounter status 10-13-2024 Results Test Name Value Interpretation Reference Range Facility CBC panel Auto (Bld)on 11-14 Erythrocyte distribution width (RBC) [Ratio] 13.8 % Normal 11.5-15.0 [facility] Comment on above: Order Comment: Darren anguiano Type: BLOOD SPECIMEN Ordering Facility: [facility] Address: [address] [place] [address] Performed By: #### C ONABO #### [facility] CLIA [id number] [address] [place] [address] [place] Hematocrit (Bld) [Volume fraction] 44.8 % Normal 39.0-51.0 [facility] Comment on above: Order Comment: Darren anguiano Type: BLOOD SPECIMEN Ordering Facility: [facility] Address: [address] [place] [address] Performed By: #### C ONABO #### [facility] CLIA [id number] [address] [place] [address] [place] Hemoglobin (Bld) [Mass/Vol] 14.4 g/dL Normal 13.0-17.0 [facility] Comment on above: Order Comment: Speci men Type: BLOOD SPECIMEN Ordering Facility: [facility] Address: [address] [place] [address] Performed By: #### C ONABO #### [facility] CLIA [id number] [address] [place] [address] [place] MCH (RBC) [Entitic mass] 28.7 pg Normal 26.0-34.0 [facility] Comment on above: Order Comment: Speci men Type: BLOOD SPECIMEN Ordering Facility: [facility] Address: [address] [place] [address] Performed By: #### C ONABO #### [facility] CLIA [id number] [address] [place] [address] [place] MCHC (RBC) [Mass/Vol] 32.1 g/dL Normal 30.5-36.0 [facility] Comment on above: Order Comment: Speci men Type: BLOOD SPECIMEN Ordering Facility: [facility] Address: [address] [place] [address] Performed By: #### C ONABO #### [facility] CLIA [id number] [address] [place] [address] [place] MCV (RBC) [Entitic vol] 89.2 fL Normal 80.0-100.0 [facility] Comment on above: Order Comment: Speci men Type: BLOOD SPECIMEN Ordering Facility: [facility] Address: [address] [place] [address] Performed By: #### C ONABO #### [facility] CLIA [id number] [address] [place] [address] [place] Nucleated RBC (Bld) [#/Vol] 10*3/uL Normal <0.01 [facility] Comment on above: Order Comment: Speci men Type: BLOOD SPECIMEN Ordering Facility: [facility] Address: [address] [place] [address] Performed By: #### C ONABO #### [facility] CLIA [id number] [address] [place] [address] [place] Platelet mean volume (Bld) [Entitic vol] 11.1 fL Normal 9.0-12.7 [facility] Comment on above: Order Comment: Speci men Type: BLOOD SPECIMEN Ordering Facility: [facility] Address: [address] [place] [address] Performed By: #### C ONABO #### [facility] CLIA [id number] [address] [place] [address] [place] Platelets (Bld) [#/Vol] 305 10*3/uL Normal 150-400 [facility] Comment on above: Order Comment: Speci men Type: BLOOD SPECIMEN Ordering Facility: [facility] Address: [address] [place] [address] Performed By: #### C ONABO #### [facility] CLIA [id number] [address] [place] [address] [place] RBC (Bld) [#/Vol] 5.02 10*6/uL Normal 4.20-6.00 [facility] Comment on above: Order Comment: Speci men Type: BLOOD SPECIMEN Ordering Facility: [facility] Address: [address] [place] [address] Performed By: #### C ONABO #### [facility] CLIA [id number] [address] [place] [address] [place] WBC (Bld) [#/Vol] 16.71 10*3/uL High 3.70-11.00 [facility] Comment on above: Order Comment: Speci men Type: BLOOD SPECIMEN Ordering Facility: [facility] Address: [address] [place] [address] Performed By: #### C ONABO #### [facility] [id number] [address] [place] [address] [place] [address] [place] CNOVon 11-14-2024 CNOV Office Visit (PULMMN ) -- DOMO PIÑA ([id number]) 1960 M Date Time Provider Department 11/14/24 2:00 PM VALENTIN BAILON PULMARJORIE During your visit today, we recorded the following information about you: Temperature Pulse Respiration Blood pressure 98.2 degrees 129/minute 18/minute 109/76 Weight 63.7 kg Valentin Bailon MD 11/14/2024 4:02 PM Signed Extended HPI: Domo Piña is a 64-year-old male, with a history of diverticulitis, presenting for preoperative evaluation prior to a scheduled colonic abscess surgery on 12/07/2023. Domo has a history of a colonic abscess secondary to diverticulitis, which has necessitated two hospitalizations within the past month. A drain was placed during the initial hospitalization, but it was removed due to minimal drainage. Domo continues to experience drainage from the abscess. He is scheduled for surgery on 12/07/2023, but the extent of the surgery (total or partial colectomy) is yet to be determined. A colonoscopy performed earlier today was incomplete due to a kink in the colon, necessitating a repeat procedure under general anesthesia. Domo has a significant smoking history, having smoked [...] apnea, chest surgery, or the use of non-invasive ventilation. Domo has a history of congestive heart failure, with a left ventricular ejection fraction of 45-50% as of 08/11/2023. He reports no chest pain or angina. He is currently without a non destructive testing supervisor but has been referred to one by a PA earlier today. 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 General: Alert, oriented, no acute distress. Cauliflower [...] ~1 year ago), family history, and occupational exposur (more content not included)... [facility] CONFIRM BLOOD TYPEon 025 ABO O [facility] Comment on above: Order Comment: Speci men Type: BLOOD SPECIMEN Ordering Facility: [facility] Address: [address] [place] [address] Performed By: #### C ONABO #### [facility] CLIA [id number] [address] [place] [address] [place] Rh Nom (Bld) Negative [facility] Comment on above: Order Comment: Speci men Type: BLOOD SPECIMEN Ordering Facility: [facility] Address: [address] [place] [address] Performed By: #### C ONABO #### [facility] CLIA [id number] [address] [place] [address] [place] Colonoscopyon 11-14-2024 Colonoscopy A31 Gastrointestinal Endoscopy Patient Name: Domo Piña Procedure Date: 11/14/2024 11:53 AM Date of : 1960 Admit Type: Outpatient Age: 64 Room: [address] Gender: Male Note Status: Finalized Attending MD: Bridgette Shaver MD, [id number] Procedure: Colonoscopy Indications: Abnormal CT of the GI tract with complicated diverticulitis and history of +cologuard with prior incomplete colonoscopy 2/2 sigmoid mobility restriction Providers: Bridgette Shaver MD, Mikael Almonte (Fellow) Patient Profile: This is a 64 year old male. Refer to note in patient chart for documentation of history and physical. Last Colonoscopy: 2022. Referring Physician: Stephenie Franco (Referring MD) Medicines: Fentanyl 75 micrograms [...] 12:21:47 PM Scope Out: 12:31:48 PM Bridgette Shaver MD 11/14/2024 12:40:34 PM Number of Addenda: 0 Note Initiated On: 11/14/2024 11:53 AM [facility] Colonoscopy Study observatio non 11-14-2024 A31 Gastrointestinal Endoscopy Patient Name: Domo Piña Procedure Date: 11/14/2024 11:53 AM Date of : 1960 Admit Type: Outpatient Age: 64 Room: [address] Gender: Male Note Status: Finalized Attending MD: Bridgette Shaver MD, [id number] Procedure: Colonoscopy Indications: Abnormal CT of the GI tract with complicated diverticulitis and history of +cologuard with prior incomplete colonoscopy 2/2 sigmoid mobility restriction Providers: Bridgette Shaver MD, Mikael Almonte (Fellow) Patient Profile: This is a 64 year old male. Refer to note in patient chart for documentation of history and physical. Last Colonoscopy: 2022. Referring Physician: Stephenie Franco (Referring MD) Medicines: Fentanyl 75 micrograms [...] Resume previous diet. - Continue present medications. (more content not included)... [facility] Radiology Study observation (narrative) Lizbet moody [facility] Comprehensive metabolic 2000 panelon 11-14-2024 Albumin [Mass/Vol] 4.5 g/dL Normal 3.9-4.9 [facility] Comment on above: Order Comment: Speci men Type: BLOOD SPECIMEN Ordering Facility: [facility] Address: [address] [place] [address] Performed By: #### C ONABO #### [facility] CLIA [id number] [address] [place] [address] [place] ALP [Catalytic activity/Vol] 118 U/L High 38-113 [facility] Comment on above: Order Comment: Speci men Type: BLOOD SPECIMEN Ordering Facility: [facility] Address: [address] [place] [address] Performed By: #### C ONABO #### [facility] CLIA [id number] [address] [place] [address] [place] ALT [Catalytic activity/Vol] 24 U/L Normal 10-54 [facility] Comment on above: Order Comment: Speci men Type: BLOOD SPECIMEN Ordering Facility: [facility] Address: [address] [place] [address] Performed By: #### C ONABO #### [facility] CLIA [id number] [address] [place] [address] [place] Anion gap [Moles/Vol] 14 mmol/L Normal 8-15 [facility] Comment on above: Order Comment: Speci men Type: BLOOD SPECIMEN Ordering Facility: [facility] Address: [address] [place] [address] Performed By: #### C ONABO #### [facility] CLIA [id number] [address] [place] [address] [place] AST [Catalytic activity/Vol] 22 U/L Normal 14-40 [facility] Comment on above: Order Comment: Speci men Type: BLOOD SPECIMEN Ordering Facility: [facility] Address: [address] [place] [address] Performed By: #### C ONABO #### [facility] CLIA [id number] [address] [place] [address] [place] Bilirubin [Mass/Vol] 0.6 mg/dL Normal 0.2-1.3 [facility] Comment on above: Order Comment: Speci men Type: BLOOD SPECIMEN Ordering Facility: [facility] Address: [address] [place] [address] Performed By: #### C ONABO #### [facility] CLIA [id number] [address] [place] [address] [place] Calcium [Mass/Vol] 10.1 mg/dL Normal 8.5-10.2 [facility] Comment on above: Order Comment: Speci men Type: BLOOD SPECIMEN Ordering Facility: [facility] Address: [address] [place] [address] Performed By: #### C ONABO #### [facility] CLIA [id number] [address] [place] [address] [place] Chloride [Moles/Vol] 103 mmol/L Normal 98-107 [facility] Comment on above: Order Comment: Speci men Type: BLOOD SPECIMEN Ordering Facility: [facility] Address: [address] [place] [address] Performed By: #### C ONABO #### [facility] CLIA [id number] [address] [place] [address] [place] CO2 [Moles/Vol] 22 mmol/L Normal 22-30 [facility] Comment on above: Order Comment: Speci men Type: BLOOD SPECIMEN Ordering Facility: [facility] Address: [address] [place] [address] Performed By: #### C ONABO #### [facility] CLIA [id number] [address] [place] [address] [place] Creatinine [Mass/Vol] 0.80 mg/dL Normal 0.73-1.22 [facility] Comment on above: Order Comment: Darren anguiano Type: BLOOD SPECIMEN Ordering Facility: [facility] Address: [address] [place] [address] Performed By: #### C ONABO #### [facility] CLIA [id number] [address] [place] [address] [place] eGFRcr SerPlBld CKD-EPI 2020 98 mL/min/1.73m??? Normal >=60 [facility] Comment on above: Order Comment: Darren anguiano Type: BLOOD SPECIMEN Ordering Facility: [facility] Address: [address] [place] [address] Result Comment: Soraya mated Glomerular Filtration Rate (eGFR) is calculated using the 2020 CKD-EPI creatinine equation. This equation utilizes serum creatinine, sex, and age as parameters. The creatinine assay has traceable calibration to isotope dilution-mass spectrometry. Refer to KDIGO guidelines for clinical interpretation. In patients with unstable renal function, e.g. those with acute kidney injury, the eGFR may not accurately reflect actual GFR. Performed By: #### C ONABO #### [facility] CLIA [id number] [address] [place] [address] [place] Glucose [Mass/Vol] 114 mg/dL High 74-99 [facility] Comment on above: Order Comment: Darren anguiano Type: BLOOD SPECIMEN Ordering Facility: [facility] Address: [address] [place] [address] Result Comment: The [place] Diabetes Association (ADA) provides guidance for cutoff [...] Standards of Medical Care in Diabetes 2016, [place] [employer] Association. Diabetes Care. 2016.39(Suppl 1). Performed By: #### C ONABO #### [facility] CLIA [id number] [address] [place] [address] [place] Potassium [Moles/Vol] 4.8 mmol/L Normal 3.7-5.1 [facility] Comment on above: Order Comment: Speci men Type: BLOOD SPECIMEN Ordering Facility: [facility] Address: [address] [place] [address] Performed By: #### C ONABO #### [facility] CLIA [id number] [address] [place] [address] [place] Protein [Mass/Vol] 8.4 g/dL High 6.3-8.0 [facility] Comment on above: Order Comment: Speci men Type: BLOOD SPECIMEN Ordering Facility: [facility] Address: [address] [place] [address] Performed By: #### C ONABO #### [facility] CLIA [id number] [address] [place] [address] [place] Sodium [Moles/Vol] 139 mmol/L Normal 136-144 [facility] Comment on above: Order Comment: Speci men Type: BLOOD SPECIMEN Ordering Facility: [facility] Address: [address] [place] [address] Performed By: #### C ONABO #### [facility] CLIA [id number] [address] [place] [address] [place] Urea nitrogen [Mass/Vol] 12 mg/dL Normal 9-24 [facility] Comment on above: Order Comment: Speci men Type: BLOOD SPECIMEN Ordering Facility: [facility] Address: [address] [place] [address] Performed By: #### C ONABO #### [facility] CLIA [id number] [address] [place] [address] [place] HISTORY PHYSICALon 08-25-202 5 HISTORY PHYSICAL HNO ID: [id number] Author: VALENTIN BAILON MD Service: ? Author Type: Physician Type: H&P Filed: 11/14/2024 16:02 Note Text: Extended HPI: Domo Piña is a 64-year-old male, with a history of diverticulitis, presenting for preoperative evaluation prior to a scheduled colonic abscess surgery on 12/07/2023. Domo has a history of a colonic abscess secondary to diverticulitis, which has necessitated two hospitalizations within the past month. A drain was placed during the initial hospitalization, but it was removed due to minimal drainage. Domo continues to experience drainage from the abscess. He is scheduled for surgery on 12/07/2023, but the extent of the surgery (total or partial colectomy) is yet to be determined. A colonoscopy performed earlier today was incomplete due to a kink in the colon, necessitating a repeat procedure under general anesthesia. Domo has a significant smoking history, having smoked [...] apnea, chest surgery, or the use of non-invasive ventilation. Domo has a history of congestive heart failure, with a left ventricular ejection fraction of 45-50% as of 08/11/2023. He reports no chest pain or angina. He is currently without a non destructive testing supervisor but has been referred to one by a PA earlier today. 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 General: Alert, oriented, no acute distress. Cauliflower [...] alpha-1 antitrypsin deficiency testing. - Advised 20-30 mi (more content not included)... [facility] HISTORY PHYSICAL HNO ID: [id number] Author: MIKAEL ALMONTE MD Service: Gastroenterology Author Type: Fellow Type: H&P Filed: 11/14/2024 12:20 Note Text: PROCEDURAL SEDATION HISTORY AND PHYSICAL EXAM SERVICE [...] EACH NOSTRIL 3 TO 4 times daily spironolactone (ALDACTONE) 25 mg [...] 1 tablet by mouth every 12 hours. aspirin, enteric coated (ASPIRIN, ENTERIC COATED) 81 mg EC tablet Take 81 mg by mouth once daily. peg 3350-Electrolytes (Techoz) 236-22.74-6.74 -5.86 gram suspension Refer to printed [...] was discussed with the patient or authorized insurance sales representative. The patient or authorized insurance sales representative has agreed to proceed with the sensitive examination. Assessment/Plan ASA Class: 2 Patient OK for Sedation: Yes Sedation Goal: Moderate Discussed case with Dr. Vasquez given the non-healing drain site and leukocytosis. He agrees with proceeding with colonoscopy today. Provisional Diagnosis/Treatment Plan: History of diverticulitis/ Colonoscopy Sedation Goal: Moderate SIGNATURE: Mikael Almonte MD PATIENT NAME: Domo Piña DATE: November 14, 2024 TIME: 11:54 AM Created 2023 [facility] HbA1c (Bld)on 11-14-2024 Average glucose Estimated from glycated hemoglobin (Bld) [Mass/Vol] 126 mg/dL [facility] Comment on above: Order Comment: Speci men Type: BLOOD SPECIMEN Ordering Facility: [facility] Address: [address] [place] [address] Result Comment: eAG: (Estimated average glucose) is a calculated value from HgbA1c and is insurance sales representative of the average blood glucose level in the last 2-3 month period. Performed By: #### C ONABO #### [facility] CLIA [id number] [address] [place] [address] [place] HbA1c (Bld) [Mass fraction] 6.0 % High 4.3-5.6 [facility] Comment on above: Order Comment: Speci men Type: BLOOD SPECIMEN Ordering Facility: [facility] Address: [address] [place] [address] Result Comment: [place]chie [place] Diabetes Association guidelines indicate that patients with HgbA1c in the range 5.7-6.4% are at increased risk for development of diabetes, and intervention by lifestyle modification may be beneficial. HgbA1c greater or equal to 6.5% is considered diagnostic of diabetes. Performed By: #### C ONABO #### [facility] CLIA [id number] [address] [place] [address] [place] NURSING PROGon 11-14-2024 NURSING PROG HNO ID: [id number] Author: JUANA LEBLANC RN Service: Nursing Author Type: Registered Nurse Type: Nursing Progress Note Filed: 11/14/2024 12:45 Note Text: AMBULATORY PATIENT EDUCATION NOTE TOPIC: GI PROCEDURES: [...] / FAMILY RESPONSE: Verbalizes understanding of: WORSENING CONDITION-Signs and symptoms of a worsening condition that warrant a call to the physician FOLLOW-UP PLAN: Complete - No need for follow-up SUPPLEMENTAL MATERIAL: Procedure Discharge Instructions REFERRAL (RECOMMENDATION): None Electronically Signed By: Juana Leblanc RN [facility] NURSING PROG HNO ID: [id number] Author: JUN CASTELLON RN Service: ? Author Type: Registered Nurse Type: Nursing Progress Note Filed: 11/14/2024 11:02 Note Text: PRE OP LEARNING ASSESSMENT PROCEDURE/SURGERY: GI PROCEDURES: Colonoscopy READINESS TO LEARN COGNITIVE ABILITY: Alert and oriented MOTIVATION TO LEARN: Interested FAMILY SUPPORT: Moderate - Family present but overwhelmed PATIENT LEARNS BEST BY: Individual Instruction Verbal Instruction FACTORS AFFECTING LEARNING: None PHYSICAL LIMITATIONS AFFECTING LEARNING: None Electronically Signed By: Jun Castellon RN In Department: GASTROENTEROLOGY [facility] TYPE AND SCREEN,30 DAYon ABO O [facility] Comment on above: Order Comment: Speci men Type: BLOOD SPECIMEN Ordering Facility: [facility] Address: [address] [place] [address] Performed By: #### T SCR30 #### [facility] CLIA [id number] [address] [place] [address] [place] Rh Nom (Bld) Negative [facility] Comment on above: Order Comment: Speci men Type: BLOOD SPECIMEN Ordering Facility: [facility] Address: [address] [place] [address] Performed By: #### T SCR30 #### [facility] CLIA [id number] [address] [place], [place] [address] [address] [place] XR CHEST 2V FRONTAL/LATon XR CHEST 2V FRONTAL/LAT * * *Final Repor t* * * DATE OF EXAM: Nov 14 2024 1:56PM AOX [id number] - XR CHEST 2V FRONTAL/LAT / PROCEDURE REASON: Shortness of breath * * * * Physician Interpretation * * * * EXAMINATION: CHEST RADIOGRAPH (2 VIEW FRONTAL and LATERAL) CLINICAL HISTORY: Shortness of breath MQ: [...] loss of height in multiple thoracic vertebrae. IMPRESSION: Severe emphysema with upper lobe predominance and chronic airway inflammatory changes with bronchial wall thickening in both lungs. No acute radiographic abnormality. [employer]: AMARJIT Transcribe Date/Time: Nov 14 2024 6:35P Dictated by : ROSA ELENA TERRAZAS MD This examination was interpreted and the report reviewed and electronically signed by: ROSA ELENA TERRAZAS MD on Nov 14 2024 6:36PM EST [id number] [facility] XR Chest PA and Lateralon IMPRESSION: Severe emphysema with upper lobe predominance and chronic airway inflammatory changes with bronchial wall thickening in both lungs. No acute radiographic abnormality. [employer]: PSCB Transcribe Date/Time: Nov 14 2024 6:35P Dictated by : ROSA ELENA TERRAZAS MD This examination was interpreted and the report reviewed and electronically signed by: ROSA ELENA TERRAZAS MD on Nov 14 2024 6:36PM EST DIVISION OF RADIOLOGY * * *Final Report* * * DATE [...] loss of height in multiple thoracic vertebrae. DIVISION OF RADIOLOGY Provider, [facility] - 11/14/2024 * * *Final Report* * [...] in both lungs. No acute radiographic abnormality. [employer]: PSC[employer] Transcribe Date/Time: Nov 14 2024 6:35P Dictated by : ROSA ELENA TERRAZAS MD This examination was interpreted and the report reviewed and electronically signed by: ROSA ELENA TERRAZAS MD on Nov 14 2024 6:36PM EST [place] Hospital Radiology Study observation (narrative) [facility] XR Chest PA and LateralOrder ed By: [facility] Provider on 11-14-2024 [facility] NURSING PROGon 11-07-2024 NURSING PROG HNO ID: [id number] Author: CAROLYN HOUSTON RN Service: ? Author Type: Registered Nurse Type: Nursing Progress Note Filed: 11/07/2024 15:35 Note Text: Attempted to reach the patient at the contact number that they provided [phone] (home) . Unable to speak with patient so without identifying the patient the following information was left on their voice mail: Date of procedure, location and report time Prep instructions A message was left informing the patient/patient insurance sales representative they must have a responsible adult accompany them to their procedure; and remain in the endoscopy area until they are discharged. Failure to have a responsible adult accompany the patient to their procedure appointment prevents the use of sedation or anesthesia for their procedure; and [...] Number to call with questions or concerns [phone] Number to call to cancel their procedure [phone] Carolyn Houston RN [facility] -- DOMO PIÑA ([id number]) 1960 M Date Time Provider Department 10/24/24 JENNIFER GARCIA [facility] During your visit today, we recorded the following information about you: Jennifer Garcia, RN 10/24/2024 10:37 AM Signed Left message on pt's vm stating that pt's colonoscopy scheduled for 10/31/24 at [facility] will be canceled since pt is already scheduled for a colonoscopy at [facility] on 11/14/24. Pt was instructed to have his colonoscopy on 11/14/24 at [facility] due to his complicated case and upcoming surgery. Instructed pt to call the office back with any questions. Nurse cancelled pt's colonoscopy on 10/31/24. Allergies As of Date: 10/24/2024 Noted Allergy Reaction LISINOPRIL 10/31/2022 4 - Hives MORPHINE 10/12/2024 14 - Other: See Comments Comments: Broke out in Sweats Date Reviewed: 10/12/2024 Reviewed by: Ashley Araujo, RN - Fully Assessed Reason for Visit: Appointment [[id number]] Prescriptions as of 10/24/2024 - spironolactone (ALDACTONE) 25 mg tablet Take 25 mg by mouth every morning. - losartan (COZAAR) 25 mg tablet Take 25 mg by mouth once daily. - metoprolol succinate ER (TOPROL XL) 100 mg 100 mg once daily. - atorvastatin (LIPITOR) 80 mg tablet Take 80 mg by mouth daily at bedtime. - amoxicillin-clavulanate potassium (AUGMENTIN) 875-125 mg per tablet Take 1 tablet by mouth every 12 hours. - aspirin, enteric coated (ASPIRIN, ENTERIC COATED) 81 mg EC tablet Take 81 mg by mouth once daily. - peg 3350-Electrolytes (GOLYTELY) 236-22.74-6.74 -5.86 gram suspension Refer to printed patient instructions that will be mailed to you. Patient should start on November 13, 2024. - peg 3350-Electrolytes (GOLYTELY) 236-22.74-6.74 -5.86 gram suspension Refer to printed patient instructions that will be mailed to you. Patient should start on December 05, 2024. - neomycin 500 mg tablet Take 2 tablets by mouth at 9pm and take 2 tablets by mouth at 11pm the night before surgery. Patient should start on December 05, 2024. - metroNIDAZOLE (FLAGYL) 500 mg tablet Take 1 tablet by mouth at 9pm and take 1 tablet by mouth at 11pm the night before surgery. Patient should start on December 05, 2024. Problem List As Of Date: 10/24/2024 (None) Encounter Status:Closed by JENNIFER GARCIA RN on 10/24/24 [facility] CNOVon 10-12-2024 CNOV Office Visit ([facility] ) -- AYANADOMO TREVINO ([id number]) 1960 M Date Time Provider Department 10/12/24 9:30 AM Shantell WELLS [facility] During your visit today, we recorded the following information about you: Temperature Pulse Blood pressure Weight 97.3 degrees 100/minute 108/82 62.2 kg Height 1.676 m Shantell Wells MD 10/12/2024 11:11 AM Signed COLORECTAL SURGERY New Patient Visit October 12, 2024 Chief Complaint: Diverticulitis History of Present Illness: Domo Piña is a 64 year old year old male with documented history of diverticulitis with perforation and abscess requiring pigtail catheter that has since been removed. Was admitted to the hospital from August 21-. Had a percutaneous drain placed. Completed course of oral antibiotics and had return of symptoms prompting readmission. Continues to have drainage from the drain site. Drain is typically purulent, was described as bilious very briefly but that has subsided. Currently completing a course of amoxicillin Most recent colonoscopy was about three years. Had a positive Cologuard prompting the scope. Medical history is significant for congestive heart failure. No history of angioplasty or stenting. Was planned to undergo stress testing prior to onset of diverticulitis symptoms but has not completed yet. 09/08/24 CT A/P - Persistent inflammatory changes are seen involving the left inguinal region with percutaneous pigtail catheter in place. No measurable fluid collection is noted. PAST MEDICAL HISTORY Diagnosis Date CHF (congestive heart failure) (HCC) Diverticulitis w/ perforation and abscess PAST SURGICAL HISTORY Procedure Laterality Date PAST SURGICAL HISTORY OF Hernia Repair Current Outpatient Medications Medication Sig Dispense Refill spironolactone (ALDACTONE) 25 mg tablet Take 25 mg by mouth every morning. losartan (COZAAR) 25 mg tablet Take 25 mg by mouth once daily. metoprolol succinate ER (TOPROL XL) 100 mg 100 mg once daily. atorvastatin (LIPITOR) 80 mg tablet Take 80 mg by mouth daily at bedtime. amoxicillin-clavulanate potassium (AUGMENTIN) 875-125 mg per tablet Take 1 tablet by mouth every 12 hours. aspirin, enteric coated (ASPIRIN, ENTERIC COATED) 81 mg EC tablet Take 81 mg by mouth once daily. No current facility-administered medications for this visit. ALLERGIES Allergen Reactions Lisinopril Hives Morphine Other: See Comments Broke out in Sweats Review of Systems / PACC screen: Do you have difficulty climbing a full flight of stairs without feeling short of breath? yes Do you require oxygen for your breathing or have your gone to an emergency department because of breathing problems? no Are you on dialysis or have you been told that your kidneys do not work well as they should? no Do have an implanted cardiac device (pacemaker, defibrillator etc.) that has not been checked in the last 6 months? no Have you had an organ transplant? no Have you been told that you had excessive bleeding during surgical procedures or do you take blood thinning medications other than aspirin? no Have you ever had a heart attack, heart stents/surgery, valve problems, or other heart problems? yes CHF, hx of Heart Cath blockage? no stents per patient. Have you had a stroke, seizures, or unexplained loss of consciousness? Yes, hx of Stroke (plaque behind retina eye) Eye Stroke ? Do you have a neurologic condition like Parkinson's disease or multiple sclerosis? no Have you or a blood relative had a life-threatening reaction to anesthesia? no Do you have cirrhosis of the liver or other liver disease? no Have you had a blood clot within the past year? no Do you take insulin or other injections for diabetes? no Do you have sleep apnea or have you been told you may have sleep apnea? no Do you have other implanted devices (deep brain stimulator, spinal cord stimulator, etc.)? no Physical Exam: Sensitive Exam: no BP 108/82 Pulse 100 Temp 36.3 ?C (97.3 ?F) (Oral) Ht 167.6 cm (5' 6 ) Wt 62.2 kg (137 lb 2 oz) SpO2 98% BMI 22.13 kg/m? General Appearance: Well appearing, alert, in no acute distress, well-hydrated, well nourished. Lungs: No increased work of breathing on RA Heart: Regular rate Edema: no Abdomen: Soft, mildly tender in LLQ, drain site covered, mild erythema overlying Anorectal: Deferred Assessment Medical Decision Making: Assessment AND Diagnosis: Domo Piña is a 64 year old male with complicated sigmoid diverticulitis. He has completed multiple courses of antibiotics (symptoms recurred after completing first course of antibiotics prompting readmission) and s/p percutaneous drainage, drain has since been removed. His most recent colonoscopy was three years ago (images not available for review at this time) and per patient report they were unable to (more content not included)... Normal [facility] HISTORY PHYSICALon HISTORY PHYSICAL HNO ID: [id number] Author: Shantell WELLS MD Service: ? Author Type: Physician Type: H&P Filed: 10/12/2024 11:11 Note Text: COLORECTAL SURGERY New Patient Visit October 12, 2024 Chief Complaint: Diverticulitis History of Present Illness: Domo Piña is a 64 year old year old male with documented history of diverticulitis with perforation and abscess requiring pigtail catheter that has since been removed. Was admitted to the hospital from August 21-. Had a percutaneous drain placed. Completed course of oral antibiotics and had return of symptoms prompting readmission. Continues to have drainage from the drain site. Drain is typically purulent, was described as bilious very briefly but that has subsided. Currently completing a course of amoxicillin Most recent colonoscopy was about three years. Had a positive Cologuard prompting the scope. Medical history is significant for congestive heart failure. No history of angioplasty or stenting. Was planned to undergo stress testing prior to onset of diverticulitis symptoms but has not completed yet. 09/08/24 CT A/P - Persistent inflammatory changes are seen involving the left inguinal region with percutaneous pigtail catheter in place. No measurable fluid collection is noted. PAST MEDICAL HISTORY Diagnosis Date CHF (congestive heart failure) (HCC) Diverticulitis w/ perforation and abscess PAST SURGICAL HISTORY Procedure Laterality Date PAST SURGICAL HISTORY OF Hernia Repair Current Outpatient Medications Medication Sig Dispense Refill spironolactone (ALDACTONE) 25 mg tablet Take 25 mg by mouth every morning. losartan (COZAAR) 25 mg tablet Take 25 mg by mouth once daily. metoprolol succinate ER (TOPROL XL) 100 mg 100 mg once daily. atorvastatin (LIPITOR) 80 mg tablet Take 80 mg by mouth daily at bedtime. amoxicillin-clavulanate potassium (AUGMENTIN) 875-125 mg per tablet Take 1 tablet by mouth every 12 hours. aspirin, enteric coated (ASPIRIN, ENTERIC COATED) 81 mg EC tablet Take 81 mg by mouth once daily. No current facility-administered medications for this visit. ALLERGIES Allergen Reactions Lisinopril Hives Morphine Other: See Comments Broke out in Sweats Review of Systems / PACC screen: Do you have difficulty climbing a full flight of stairs without feeling short of breath? yes Do you require oxygen for your breathing or have your gone to an emergency department because of breathing problems? no Are you on dialysis or have you been told that your kidneys do not work well as they should? no Do have an implanted cardiac device (pacemaker, defibrillator etc.) that has not been checked in the last 6 months? no Have you had an organ transplant? no Have you been told that you had excessive bleeding during surgical procedures or do you take blood thinning medications other than aspirin? no Have you ever had a heart attack, heart stents/surgery, valve problems, or other heart problems? yes CHF, hx of Heart Cath blockage? no stents per patient. Have you had a stroke, seizures, or unexplained loss of consciousness? Yes, hx of Stroke (plaque behind retina eye) Eye Stroke ? Do you have a neurologic condition like Parkinson's disease or multiple sclerosis? no Have you or a blood relative had a life-threatening reaction to anesthesia? no Do you have cirrhosis of the liver or other liver disease? no Have you had a blood clot within the past year? no Do you take insulin or other injections for diabetes? no Do you have sleep apnea or have you been told you may have sleep apnea? no Do you have other implanted devices (deep brain stimulator, spinal cord stimulator, etc.)? no Physical Exam: Sensitive Exam: no BP 108/82 Pulse 100 Temp 36.3 ?C (97.3 ?F) (Oral) Ht 167.6 cm (5' 6 ) Wt 62.2 kg (137 lb 2 oz) SpO2 98% BMI 22.13 kg/m? General Appearance: Well appearing, alert, in no acute distress, well-hydrated, well nourished. Lungs: No increased work of breathing on RA Heart: Regular rate Edema: no Abdomen: Soft, mildly tender in LLQ, drain site covered, mild erythema overlying Anorectal: Deferred Assessment Medical Decision Making: Assessment AND Diagnosis: Domo Piña is a 64 year old male with complicated sigmoid diverticulitis. He has completed multiple courses of antibiotics (symptoms recurred after completing first course of antibiotics prompting readmission) and s/p percutaneous drainage, drain has since been removed. His most recent colonoscopy was three years ago (images not available for review at this time) and per patient report they were unable to complete the colonoscopy due to a bend in the sigmoid. Barium enema was obtained after aborting the colonoscopy. He will likely require surgery for this problem. Prior to undergoing surgery however, we need to review prior CT and obtain a complete colonoscopy to rule out cancer. Data Reviewed: Tests AND Docu (more content not included)... Normal [facility] Basic Metabolic Panelon 09-20 Creatinine Clr Calc Pharmacy 83.07 Normal [facility] Comment on above: Result Comment: PERF ORMED BY: [place] [address] PATHOLOGIST [employer] DRIVER CHARLES LOWE M.D. Performed By: #### B KEON, CBC #### [address] GFR/1.73 sq M.predicted MDRD (S/P/Bld) [Vol rate/Area] mL/min/{1.73_m2} Normal [facility] Comment on above: Performed By: #### B MP, CBC #### [address] [address] [place] Basophils [#/volume] in Bloo d by Automated countOrdered By: Navarro Ballesteros on 10-07-2024 Basophils (Bld) [#/Vol] 0.1 10*3/uL Normal 0.0-0.2 [facility] Comment on above: Result Comment: PERF ORMED BY: [address] [place] [address] PATHOLOGIST MOTOR [employer] DRIVER CHARLES LOWE M.D. Performed By: #### B MP, CBC #### [facility] [address] [place] [address] [place] Basophils/100 leukocytes in Blood by Automated countOrdered By: Navarro Ballesteros on 10-07-2024 Basophils/100 WBC (Bld) 1.3 % Normal . [facility] Comment on above: Performed By: #### B MP, CBC #### [facility] [address] [place] [address] [place] Calcium [Mass/volume] in Ser um or PlasmaOrdered By: Navarro Ballesteros on 10-07-2024 Calcium [Mass/Vol] 8.6 mg/dL Normal 8.6-10.3 [facility] Comment on above: Performed By: #### B MP, CBC #### [facility] [address] [place] [address] [place] Carbon dioxide, total [Moles /volume] in Serum or PlasmaOrdered By: Navarro Ballesteros on 10-07-2024 CO2 [Moles/Vol] 27.9 mmol/L Normal 21.0-31.0 [facility] Comment on above: Performed By: #### B MP, CBC #### [facility] [address] [place] [address] [place] Chloride [Moles/volume] in S nicole or PlasmaOrdered By: Navarro Ballesteros on 10-07-2024 Chloride [Moles/Vol] 105 mmol/L Normal 98-107 [facility] Comment on above: Performed By: #### B MP, CBC #### [address] Complete Blood Count Auto Di ffon 10-07-2024 Mean Corpuscular HGB Conc 33.7 g/dL Normal 32.5-35.6 [facility] Comment on above: Performed By: #### B MP, CBC #### [address] NRBC% 0.1 /100{WBC} Normal 0-0.5 [facility] Comment on above: Performed By: #### B MP, CBC #### [address] White Blood Count 9.7 [CFU]/mL Normal 4.1-10.5 [facility] Comment on above: Performed By: #### B MP, CBC #### [address] Creatinine [Mass/volume] in Serum or PlasmaOrdered By: Navarro Ballesteros on 10-07-2024 Creatinine [Mass/Vol] 0.58 mg/dL Low 0.70-1.30 [facility] Comment on above: Performed By: #### B MP, CBC #### [place] [address] [place] Eosinophils [#/volume] in Bl ood by Automated countOrdered By: Navarro Ballesteros on 10-07-2024 Eosinophils (Bld) [#/Vol] 0.6 10*3/uL High 0.0-0.45 [facility] Comment on above: Performed By: #### B MP, CBC #### [place] [address] [place] Eosinophils/100 leukocytes i n Blood by Automated countOrdered By: Navarro Ballesteros on 10-07-2024 Eosinophils/100 WBC (Bld) 5.9 % Normal . [facility] Comment on above: Performed By: #### B MP, CBC #### [place] [address] [place] Erythrocyte distribution wid th [Ratio] by Automated countOrdered By: Navarro Ballesteros on 10-07-2024 Erythrocyte distribution width (RBC) [Ratio] 13.9 % Normal 12.0-14.8 [facility] Comment on above: Performed By: #### B MP, CBC #### [facility] [address] Erythrocytes [#/volume] in B lood by Automated countOrdered By: Navarro Ballesteros on 10-07-2024 RBC (Bld) [#/Vol] 4.27 10*6/uL Normal 3.90-5.60 [facility] Comment on above: Performed By: #### B MP, CBC #### [facility] [address] Glucose [Mass/volume] in Ser um or PlasmaOrdered By: Navarro Ballesteros on 10-07-2024 Glucose [Mass/Vol] 84 mg/dL Normal 70-100 [facility] Comment on above: ADA recommended refe rence rangeRandom Glucose Reference Range is dependent on time and content of last meal. Glucose of more than 200 mg/dL in a nonstressed, ambulatory subject supports the diagnosis of Diabetes Mellitus. Result Comment: Spelter om Glucose Reference Range is dependent on time and content of last meal. Glucose of more than 200 mg/dL in a nonstressed, ambulatory subject supports the diagnosis of Diabetes Mellitus. ADA recommended reference range Performed By: #### B MP, CBC #### [facility] [address] [place] [address] [place] Hematocrit [Volume Fraction] of Blood by Automated countOrdered By: Navarro Ballesteros on 10-07-2024 Hematocrit (Bld) [Volume fraction] 37.0 % Low 38.8-50.0 [facility] Comment on above: Performed By: #### B MP, CBC #### [facility] [address] Hemoglobin [Mass/volume] in BloodOrdered By: Navarro Blalesteros on 10-07-2024 Hemoglobin (Bld) [Mass/Vol] 12.5 g/dL Low 13.0-17.0 [facility] Comment on above: Performed By: #### B MP, CBC #### [facility] [address] Leukocytes [#/volume] correc madi for nucleated erythrocytes in Blood by Automated counOrdered By: Navarro Ballesteros on 10-07-2024 WBC corrected for nucl RBC Auto (Bld) [#/Vol] 9.7 10*3/uL 4.1-10.5 [facility] Leukocytes [#/volume] in Blo od by Automated countOrdered By: Navarro Ballesteros on 10-07-2024 WBC (Bld) [#/Vol] 9.7 10*3/uL Normal 4.1-10.5 [facility] Comment on above: Performed By: #### B MP, CBC #### [place] [address] [place] Lymphocytes [#/volume] in Bl ood by Automated countOrdered By: Navarro Ballesteros on 10-07-2024 Lymphocytes (Bld) [#/Vol] 1.9 10*3/uL Normal 1.00-4.8 [facility] Comment on above: Performed By: #### B MP, CBC #### [facility] [address] [place] [address] [place] Lymphocytes/100 leukocytes i n Blood by Automated countOrdered By: Navarro Ballesteros on 10-07-2024 Lymphocytes/100 WBC (Bld) 19.7 % Normal . [facility] Comment on above: Performed By: #### B MP, CBC #### [facility] [address] [place] [address] [place] MCH [Entitic mass] by Automa madi countOrdered By: Navarro Ballesteros on 10-07-2024 MCH (RBC) [Entitic mass] 29.3 pg Normal 27.5-35.2 [facility] Comment on above: Performed By: #### B MP, CBC #### [facility] [address] [place] [address] [place] MCHC Auto (RBC) [Mass/Vol]Or dered By: Navarro Ballesteros on 10-07-2024 MCHC (RBC) [Mass/Vol] 33.7 g/dL 32.5-35.6 [facility] MCV [Entitic volume] by Auto mated countOrdered By: Navarro Ballesteros on 10-07-2024 MCV (RBC) [Entitic vol] 86.7 fL Normal 83.5-101 [facility] Comment on above: Performed By: #### B MP, CBC #### [facility] [address] Monocytes [#/volume] in Bloo d by Automated countOrdered By: Navarro Ballesteros on 10-07-2024 Monocytes (Bld) [#/Vol] 1.0 10*3/uL High 0.0-0.8 [facility] Comment on above: Performed By: #### B MP, CBC #### [facility] [address] [place] [address] [place] Monocytes/100 leukocytes in Blood by Automated countOrdered By: Navarro Ballesteros on 10-07-2024 Monocytes/100 WBC (Bld) 10.5 % Normal . [facility] Comment on above: Performed By: #### B MP, CBC #### [address] Neutrophils [#/volume] in Bl ood by Automated countOrdered By: Navarro Ballesteros on 10-07-2024 Neutrophils (Bld) [#/Vol] 6.1 10*3/uL Normal 1.8-7.7 [facility] Comment on above: Performed By: #### B MP, CBC #### [facility] [address] [place] [address] [place] Neutrophils/100 leukocytes i n Blood by Automated countOrdered By: Navarro Ballesteros on 10-07-2024 Neutrophils/100 WBC (Bld) 62.6 % Normal . [facility] Comment on above: Performed By: #### B MP, CBC #### [facility] [address] [place] [address] No Panel InformationOrdered By: Navarro Ballesteros on 10-07-2024 Estimated GFR (CKD-EPI) > 60.0 mL/Min [facility] Creatinine Clearance (Chem 83.07 [facility] Nucleated erythrocytes [Pres ence] in Blood by Automated countOrdered By: Navarro Ballesteros on 10-07-2024 Nucleated RBC Auto Ql (Bld) 0.1 /100{WBC} 0-0.5 [facility] Platelet mean volume [Entiti c volume] in Blood by Automated countOrdered By: Navarro Ballesteros on 10-07-2024 Platelet mean volume (Bld) [Entitic vol] 9.2 fL Normal 6.6-10.1 [facility] Comment on above: Performed By: #### B MP, CBC #### [address] Platelets [#/volume] in Bloo d by Automated countOrdered By: Navarro Ballesteros on 10-07-2024 Platelets (Bld) [#/Vol] 253 10*3/uL Normal 150-450 [facility] Comment on above: Performed By: #### B MP, CBC #### [facility] [address] [place] [address] [place] Potassium [Moles/volume] in Serum or PlasmaOrdered By: Navarro Ballesteros on 10-07-2024 Potassium [Moles/Vol] 3.7 mmol/L Normal 3.5-5.1 [facility] Comment on above: Performed By: #### B MP, CBC #### [facility] [address] [place] [address] Serum or plasma anion gap de terminationOrdered By: Navarro Ballesteros on 10-07-2024 Anion gap [Moles/Vol] 9.8 mmol/L Normal 6.0-15.0 [facility] Comment on above: Performed By: #### B MP, CBC #### [facility] [address] [place] [address] [place] Sodium [Moles/volume] in Ser um or PlasmaOrdered By: Navarro Ballesteros on 10-07-2024 Sodium [Moles/Vol] 139 mmol/L Normal 136-145 [facility] Comment on above: Performed By: #### B MP, CBC #### [facility] [address] Urea nitrogen [Mass/volume] in Serum or PlasmaOrdered By: Navarro Ballesteros on 10-07-2024 Urea nitrogen [Mass/Vol] 10 mg/dL Normal 7-25 [facility] Comment on above: Performed By: #### B MP, CBC #### [facility] [address] Basic Metabolic Panelon 09-20 Anion gap [Moles/Vol] 9.8 mmol/L Normal 6.0-15.0 [facility] Comment on above: Performed By: #### B MP, CBC #### [facility] [address] Calcium [Mass/Vol] 8.6 mg/dL Normal 8.6-10.3 [facility] Comment on above: Performed By: #### B MP, CBC #### [facility] [address] Chloride [Moles/Vol] 104 mmol/L Normal 98-107 [facility] Comment on above: Performed By: #### B MP, CBC #### [facility] [address] CO2 [Moles/Vol] 26.9 mmol/L Normal 21.0-31.0 [facility] Comment on above: Performed By: #### B MP, CBC #### [facility] [address] Creatinine [Mass/Vol] 0.55 mg/dL Low 0.70-1.30 [facility] [facility] Comment on above: Performed By: #### B MP, CBC #### [facility] [address] Creatinine Clr Calc Pharmacy 83.07 Normal [facility] Comment on above: Result Comment: PERF ORMED BY: [place] [address] PATHOLOGIST [employer] DRIVER CHARLES LOWE M.D. Performed By: #### B MP, CBC #### [place] [address] [place] GFR/1.73 sq M.predicted MDRD (S/P/Bld) [Vol rate/Area] mL/min/{1.73_m2} Normal [facility] Comment on above: Performed By: #### B MP, CBC #### [address] Glucose [Mass/Vol] 85 mg/dL Normal 70-100 [facility] Comment on above: Result Comment: [facility] Glucose Reference Range is dependent on time and content of last meal. Glucose of more than 200 mg/dL in a nonstressed, ambulatory subject supports the diagnosis of Diabetes Mellitus. ADA recommended reference range Performed By: #### B KEON, CBC #### [address] Potassium [Moles/Vol] 3.7 mmol/L Normal 3.5-5.1 [facility] Comment on above: Performed By: #### B MP, CBC #### [address] Sodium [Moles/Vol] 137 mmol/L Normal 136-145 [facility] Comment on above: Performed By: #### B MP, CBC #### [place] [address] [place] Urea nitrogen [Mass/Vol] 9 mg/dL Normal 7-25 [facility] Comment on above: Performed By: #### B MP, CBC #### [address] Complete Blood Count Auto Di ffon 10-06-2024 Basophils (Bld) [#/Vol] 0.1 10*3/uL Normal 0.0-0.2 [facility] Comment on above: Result Comment: PERF ORMED BY: [place] [address] PATHOLOGIST [employer] DRIVER CHARLES LOWE M.D. Performed By: #### B MP, CBC #### [place] [address] [place] Basophils/100 WBC (Bld) 0.6 % Normal . T k[facility]i [facility] Comment on above: Performed By: #### B MP, CBC #### [place] [address] [place] Eosinophils (Bld) [#/Vol] 0.4 10*3/uL Normal 0.0-0.45 [facility] Comment on above: Performed By: #### B MP, CBC #### [place] [address] [place] Eosinophils/100 WBC (Bld) 3.8 % Normal . [facility] Comment on above: Performed By: #### B MP, CBC #### [address] Erythrocyte distribution width (RBC) [Ratio] 14.0 % Normal 12.0-14.8 [facility] Comment on above: Performed By: #### B MP, CBC #### [place] [address] [place] Hematocrit (Bld) [Volume fraction] 35.7 % Low 38.8-50.0 [facility] Comment on above: Performed By: #### B MP, CBC #### [place] [address] [place] Hemoglobin (Bld) [Mass/Vol] 12.0 g/dL Low 13.0-17.0 [facility] Comment on above: Performed By: #### B MP, CBC #### [place] [address] [place] Lymphocytes (Bld) [#/Vol] 2.1 10*3/uL Normal 1.00-4.8 [facility] Comment on above: Performed By: #### B MP, CBC #### [place] [address] [place] Lymphocytes/100 WBC (Bld) 18.4 % Normal . [facility] Comment on above: Performed By: #### B MP, CBC #### [facility] [address] MCH (RBC) [Entitic mass] 29.0 pg Normal 27.5-35.2 [facility] Comment on above: Performed By: #### B MP, CBC #### [facility] [address] MCV (RBC) [Entitic vol] 86.3 fL Normal 83.5-101 [facility] Comment on above: Performed By: #### B MP, CBC #### [address] Mean Corpuscular HGB Conc 33.6 g/dL Normal 32.5-35.6 [facility] Comment on above: Performed By: #### B MP, CBC #### [address] Monocytes (Bld) [#/Vol] 1.2 10*3/uL High 0.0-0.8 [facility] Comment on above: Performed By: #### B MP, CBC #### [place] [address] [place] Monocytes/100 WBC (Bld) 10.5 % Normal . [facility] Comment on above: Performed By: #### B MP, CBC #### [address] Neutrophils (Bld) [#/Vol] 7.5 10*3/uL Normal 1.8-7.7 [facility] Comment on above: Performed By: #### B MP, CBC #### [address] Neutrophils/100 WBC (Bld) 66.7 % Normal . [facility] Comment on above: Performed By: #### B MP, CBC #### [address] NRBC% 0.0 /100{WBC} Normal 0-0.5 [facility] Comment on above: Performed By: #### B MP, CBC #### [address] Platelet mean volume (Bld) [Entitic vol] 9.4 fL Normal 6.6-10.1 [facility] Comment on above: Performed By: #### B MP, CBC #### [address] Platelets (Bld) [#/Vol] 230 10*3/uL Normal 150-450 [facility] Comment on above: Performed By: #### B MP, CBC #### [address] RBC (Bld) [#/Vol] 4.14 10*6/uL Normal 3.90-5.60 [facility] Comment on above: Performed By: #### B MP, CBC #### [address] WBC (Bld) [#/Vol] 11.2 10*3/uL High 4.1-10.5 [facility] Comment on above: Performed By: #### B MP, CBC #### [address] White Blood Count 11.2 [CFU]/mL High 4.1-10.5 [facility] Comment on above: Performed By: #### B MP, CBC #### [address] Anisocytosis [Presence] in B lood by Light microscopyOrdered By: Navarro Ballesteros on 10-05-2024 Anisocytosis Ql (Bld) Slight Normal [facility] Comment on above: Performed By: #### B MP, CBC #### [address] Basic Metabolic Panelon 09-20 Anion gap [Moles/Vol] 11.2 mmol/L Normal 6.0-15.0 [facility] Comment on above: Performed By: #### B MP, CBC #### [address] Calcium [Mass/Vol] 8.4 mg/dL Low 8.6-10.3 [facility] Comment on above: Performed By: #### B MP, CBC #### [place] [address] [place] Chloride [Moles/Vol] 102 mmol/L Normal 98-107 [facility] Comment on above: Performed By: #### B MP, CBC #### [place] [address] [place] CO2 [Moles/Vol] 25.5 mmol/L Normal 21.0-31.0 [facility] Comment on above: Performed By: #### B MP, CBC #### [place] [address] [place] Creatinine [Mass/Vol] 0.65 mg/dL Low 0.70-1.30 [facility] Comment on above: Performed By: #### B MP, CBC #### [place] [address] [place] Creatinine Clr Calc Pharmacy 83.07 Normal [facility] Comment on above: Result Comment: PERF ORMED BY: [place] [address] PATHOLOGIST [employer] DRIVER CHARLES LOWE M.D. Performed By: #### B MP, CBC #### [place] [address] [place] GFR/1.73 sq M.predicted MDRD (S/P/Bld) [Vol rate/Area] mL/min/{1.73_m2} Normal [facility] Comment on above: Performed By: #### B MP, CBC #### [place] [address] [place] Glucose [Mass/Vol] 102 mg/dL High 70-100 [facility] Comment on above: Result Comment: [facility] Glucose Reference Range is dependent on time and content of last meal. Glucose of more than 200 mg/dL in a nonstressed, ambulatory subject supports the diagnosis of Diabetes Mellitus. ADA recommended reference range Performed By: #### B MP, CBC #### [address] [address] [place] Potassium [Moles/Vol] 3.7 mmol/L Normal 3.5-5.1 [facility] Comment on above: Performed By: #### B MP, CBC #### [facility] [address] Sodium [Moles/Vol] 135 mmol/L Low 136-145 [facility] Comment on above: Performed By: #### B MP, CBC #### [facility] [address] Urea nitrogen [Mass/Vol] 15 mg/dL Normal 7-25 [facility] Comment on above: Performed By: #### B MP, CBC #### [facility] [address] Laurie cells [Presence] in Blo od by Light microscopyOrdered By: Navarro Ballesteros on 10-05-2024 Laurie cells LM Ql (Bld) Slight [facility] Erythrocyte morphology findi ng [Identifier] in BloodOrdered By: Navarro Ballesteros on 10-05-2024 RBC morphology finding Nom (Bld) N/A [facility] Microcytes LM Ql (Bld)Ordere d By: Navarro Ballesteros on 10-05-2024 Microcytes Ql (Bld) Slight [facility] Ovalocytes [Presence] in Blo od by Light microscopyOrdered By: Navarro Ballesteros on 10-05-2024 Ovalocytes LM Ql (Bld) Slight [facility] Platelet adequacy [Presence] in Blood by Light microscopyOrdered By: Navarro Ballesteros on 10-05-2024 Platelets LM Ql (Bld) Normal Normal [facility] Platelet morphology finding [Identifier] in BloodOrdered By: Navarro Ballesteros on 10-05-2024 Platelet morphology finding Nom (Bld) Normal Normal [facility] Poikilocytosis [Presence] in Blood by Light microscopyOrdered By: Navarro Ballesteros on 10-05-2024 Poikilocytosis LM Ql (Bld) Slight [facility] Scan and CBCon 10-05-2024 Basophils (Bld) [#/Vol] 0.1 10*3/uL Normal 0.0-0.2 [facility] Comment on above: Performed By: #### B MP, CBC #### [address] Basophils/100 WBC (Bld) 0.7 % Normal . [facility] Comment on above: Performed By: #### B MP, CBC #### [address] Crenated RBC Slight Normal [facility] Comment on above: Performed By: #### B MP, CBC #### [address] Eosinophils (Bld) [#/Vol] 0.2 10*3/uL Normal 0.0-0.45 [facility] Comment on above: Performed By: #### B MP, CBC #### [address] Eosinophils/100 WBC (Bld) 1.7 % Normal . [facility] Comment on above: Performed By: #### B MP, CBC #### [address] Erythrocyte distribution width (RBC) [Ratio] 14.3 % Normal 12.0-14.8 [facility] Comment on above: Performed By: #### B MP, CBC #### [address] Hematocrit (Bld) [Volume fraction] 36.4 % Low 38.8-50.0 [facility] Comment on above: Performed By: #### B MP, CBC #### [address] Hemoglobin (Bld) [Mass/Vol] 12.0 g/dL Low 13.0-17.0 [facility] Comment on above: Performed By: #### B MP, CBC #### [address] Lymphocytes (Bld) [#/Vol] 2.0 10*3/uL Normal 1.00-4.8 [facility] Comment on above: Performed By: #### B MP, CBC #### [address] Lymphocytes/100 WBC (Bld) 15.6 % Normal . [facility] Comment on above: Performed By: #### B MP, CBC #### [address] MCH (RBC) [Entitic mass] 28.6 pg Normal 27.5-35.2 [facility] Comment on above: Performed By: #### B MP, CBC #### [address] MCV (RBC) [Entitic vol] 86.6 fL Normal 83.5-101 [facility] Comment on above: Performed By: #### B MP, CBC #### [address] Mean Corpuscular HGB Conc 33.0 g/dL Normal 32.5-35.6 [facility] Comment on above: Performed By: #### B MP, CBC #### [address] Microcytosis Slight Normal [facility] Comment on above: Performed By: #### B MP, CBC #### [address] Monocytes (Bld) [#/Vol] 1.6 10*3/uL High 0.0-0.8 [facility] Comment on above: Performed By: #### B MP, CBC #### [address] Monocytes/100 WBC (Bld) 12.0 % Normal . [facility] Comment on above: Performed By: #### B MP, CBC #### [address] Neutrophils (Bld) [#/Vol] 9.1 10*3/uL High 1.8-7.7 [facility] Comment on above: Performed By: #### B MP, CBC #### [address] Neutrophils/100 WBC (Bld) 70.0 % Normal . [facility] Comment on above: Performed By: #### B MP, CBC #### [address] NRBC% 0.1 /100{WBC} Normal 0-0.5 [facility] Comment on above: Performed By: #### B MP, CBC #### [address] Ovalocytes Slight Normal [facility] Comment on above: Performed By: #### B MP, CBC #### [address] Platelet Estimate Normal Normal Normal [facility] Comment on above: Performed By: #### B MP, CBC #### [address] Platelet mean volume (Bld) [Entitic vol] 9.2 fL Normal 6.6-10.1 [facility] Comment on above: Performed By: #### B MP, CBC #### [address] Platelet Morphology Normal Normal Normal [facility] Comment on above: Result Comment: PERF ORMED BY: [place] [address] PATHOLOGIST [employer] DRIVER CHARLES LOWE M.D. Performed By: #### B MP, CBC #### [address] Platelets (Bld) [#/Vol] 221 10*3/uL Normal 150-450 [facility] Comment on above: Performed By: #### B MP, CBC #### [address] Poikilocytosis Slight Normal [facility] Comment on above: Performed By: #### B MP, CBC #### [address] RBC (Bld) [#/Vol] 4.20 10*6/uL Normal 3.90-5.60 [facility] Comment on above: Performed By: #### B MP, CBC #### [facility] [address] WBC (Bld) [#/Vol] 13.0 10*3/uL High 4.1-10.5 [facility] Comment on above: Performed By: #### B MP, CBC #### [facility] [address] White Blood Count 13.0 [CFU]/mL High 4.1-10.5 [facility] Comment on above: Performed By: #### B MP, CBC #### [address] Urate [Mass/Vol]on Comment may add to previously drawn blood [facility] Urate [Mass/volume] in Serum or PlasmaOrdered By: SAADIA Haywood on 10-05-2024 Urate [Mass/Vol] 4.8 mg/dL Normal 4.4-7.6 [facility] Comment on above: Order Comment: Comme nt may add to previously drawn blood Result Comment: PERF ORMED BY: [place] [address] PATHOLOGIST [employer] DRIVER CHARLES LOWE M.D. Performed By: #### B MP, CBC #### [address] Uric acidon 10-05-2024 Urate [Mass/Vol] 4.8 mg/dL 4.4 - 7.6 mg/dL [facility] Aerobic culture with sensiti vityOrdered By: Kanwal Koroma on 10-04-2024 Bacteria identified Aer cx Nom (Unsp spec) Klebsiella oxytoca Abnormal [facility] Alanine aminotransferase [En zymatic activity/volume] in Serum or PlasmaOrdered By: Kanwal Koroma on 10-04-2024 ALT [Catalytic activity/Vol] 20 U/L Normal 7-52 [facility] Comment on above: Performed By: #### B MP, CBC #### [place] [address] [place] Albumin [Mass/volume] in Ser um or Plasma by Bromocresol green (BCG) dye binding methoOrdered By: Kanwal Koroma on 10-04-2024 Albumin BCG dye [Mass/Vol] 4.2 g/dL 3.5-5.7 [facility] Alkaline phosphatase [Enzyma tic activity/volume] in Serum or PlasmaOrdered By: Kanwal Koroma on 10-04-2024 ALP [Catalytic activity/Vol] 94 U/L Normal 34-104 [facility] Comment on above: Performed By: #### B MP, CBC #### [place] [address] [place] Aspartate aminotransferase [ Enzymatic activity/volume] in Serum or PlasmaOrdered By: Kanwal Koroma on 10-04-2024 AST [Catalytic activity/Vol] 15 U/L Normal 13-39 [facility] Comment on above: Performed By: #### B MP, CBC #### [place] [address] [place] Basophils [#/volume] in Bloo d by Automated countOrdered By: Kanwal Koroma on 10-04-2024 Basophils (Bld) [#/Vol] 0.1 10*3/uL Normal 0.0-0.2 [facility] Comment on above: Result Comment: PERF ORMED BY: [place] [address] PATHOLOGIST [employer] DRIVER CHARLES LOWE M.D. Performed By: #### B MP, CBC #### [place] [address] [place] Basophils/100 leukocytes in Blood by Automated countOrdered By: Kanwal Koroma on 10-04-2024 Basophils/100 WBC (Bld) 0.4 % Normal . [facility] Comment on above: Performed By: #### B MP, CBC #### [place] [address] [place] Bilirubin.total [Mass/volume ] in Serum or PlasmaOrdered By: Kanwal Koroma on 10-04-2024 Bilirubin [Mass/Vol] 0.7 mg/dL Normal 0.3-1.0 [facility] Comment on above: Performed By: #### B MP, CBC #### [address] Blood Cultureon 10-04-2024 Bacteria identified Cx Nom (Bld) NO GROWTH 5 DAYS PERFORMED BY: [place] [address] PATHOLOGIST [employer] DRIVER CHARLES LOWE M.D. Normal [facility] Comment on above: Performed By: #### B MP, CBC #### [address] Bacteria identified Cx Nom (Bld) NO GROWTH 5 DAYS PERFORMED BY: [place] [address] PATHOLOGIST [employer] DRIVER CHARLES LOWE M.D. Normal [facility] Comment on above: Performed By: #### B MP, MG, CBC #### [address] abdomen pelvis w conon CT abdomen pelvis w con [facility] [place] [address] [place] [address] CT Scan Report Signed Patient: Domo Piña MR#: [id number] : 1960 Acct:[id number] Age/Sex: 64 / M ADM Date: 10/04/24 Loc: ER Room: Type: [facility] ER Attending Dr: Copies to: Kanwal Koroma APRN Ordering Provider: Kanwal Koroma APRN Date of Service: 10/04/24 CT/CT abdomen pelvis w con: pain left inguinal region. History of abscess CT abdomen pelvis w con 10/04/2024 7:16 PM SIGNS AND SYMPTOMS: Left inguinal pain, history of perforated diverticulitis with abscess formation and history of left groin abscess status post drain placement. Continued drainage from site. TECHNIQUE: Multidetector ct axial images of the abdomen and pelvis were obtained with IV contrast. Multiplanar reformats were performed and reviewed to further define anatomy and possible pathology. CT was performed with one or more of the following dose reduction techniques: Automated exposure control, adjustment of the mA and/or kV according to patient size, or use of iterative reconstruction technique. COMPARISON: 09/08/2024 FINDINGS: Lower Chest: Atherosclerotic changes are noted in the thoracic aorta. There is dependent scarring or atelectasis in the lung bases. ABDOMEN: Liver: The liver is hypoattenuating suggesting hepatic steatosis. Bile Ducts: Normal caliber. Gallbladder: No calcified gallstones. Normal caliber wall. Pancreas: Within normal limits. Spleen: Within normal limits. Adrenals: Within normal limits. Kidneys: Within normal limits. Pelvis: Reproductive Organs: No pelvic masses. Ureters: Within normal limits. Bladder: Within normal limits. Bowel: There is similar wall thickening in the sigmoid colon. There are uncomplicated colonic diverticula. Persistent fat stranding is noted with an extraluminal collection evacuating along the junction of the descending colon and sigmoid colon which appears to have a fistulous connection to a small left inguinal abscess. There is a fistulous tract to an area of skin thickening along the previous drainage site. The drain has been removed. The area of abscess measures 2.3 x 1.6 x 2.8 cm in greatest dimension along the left inguinal wall. Mesenteric Lymph Nodes: No enlarged mesenteric lymph nodes. Peritoneum: No ascites or free air, no fluid collection. Vessels: Atherosclerotic changes are noted in the abdominal aorta and its branches. Retroperitoneum: Within normal limits. Abdominal Wall: As above. There are a few mildly prominent inguinal lymph nodes on the left which are presumably reactive in nature. Bones: Degenerative changes are noted in the thoracolumbar spine and hips. CT/CT abdomen pelvis w con IMPRESSION: Persistent fat stranding is noted with an extraluminal collection evacuating along the junction of the descending colon and sigmoid colon which appears to have a fistulous connection to a small left inguinal abscess. There is a fistulous tract to an area of skin thickening along the previous drainage site. The drain has been removed. The area of abscess measures 2.3 x 1.6 x 2.8 cm in greatest dimension along the left inguinal wall. Impression dictated by: Alex Leyva M.D. 10/04/2024 7:31 PM Dictation Location: [place] [address] Transcribed By: [facility] 10/04/241930 Dictated By: Alex Leyva II, MD 10/04/241924 Signed By: 10/04/241930 Normal [facility] Calcium [Mass/volume] in Ser um or PlasmaOrdered By: Kanwal Koroma on 10-04-2024 Calcium [Mass/Vol] 9.5 mg/dL Normal 8.6-10.3 [facility] Comment on above: Performed By: #### B MP, CBC #### [address] Carbon dioxide, total [Moles /volume] in Serum or PlasmaOrdered By: Kanwal Koroma on 10-04-2024 CO2 [Moles/Vol] 26.9 mmol/L Normal 21.0-31.0 [facility] Comment on above: Performed By: #### B MP, CBC #### [place] [address] [place] Chloride [Moles/volume] in S nicole or PlasmaOrdered By: Kanwal Koroma on 10-04-2024 Chloride [Moles/Vol] 100 mmol/L Normal 98-107 [facility] Comment on above: Performed By: #### B MP, CBC #### [address] Complete Blood Count Auto Di ffon 10-04-2024 Mean Corpuscular HGB Conc 32.9 g/dL Normal 32.5-35.6 [facility] Comment on above: Performed By: #### B MP, CBC #### [facility] [address] [place] [address] [place] Monocytes/100 WBC (Bld) 19.07 % Normal 0.00-20.00 [facility] Comment on above: Performed By: #### B MP, CBC #### [place] [address] [place] NRBC% 0.1 /100{WBC} Normal 0-0.5 [facility] Comment on above: Performed By: #### B MP, CBC #### [facility] [address] White Blood Count 18.1 [CFU]/mL High 4.1-10.5 [facility] Comment on above: Performed By: #### B MP, CBC #### [facility] [address] Comprehensive Metabolic Pane kevon 10-04-2024 Albumin [Mass/Vol] 4.2 g/dL Normal 3.5-5.7 [facility] Comment on above: Performed By: #### B MP, CBC #### [address] Creatinine Clr Calc Pharmacy 79.73 Normal [facility] Comment on above: Performed By: #### B KEON, CBC #### [place] [address] [place] GFR/1.73 sq M.predicted MDRD (S/P/Bld) [Vol rate/Area] mL/min/{1.73_m2} Normal [facility] [facility] Comment on above: Performed By: #### B KEON, CBC #### [address] Creatinine [Mass/volume] in Serum or PlasmaOrdered By: Kanwal Koroma on 10-04-2024 Creatinine [Mass/Vol] 0.79 mg/dL Normal 0.70-1.30 [facility] Comment on above: Performed By: #### B KEON, CBC #### [address] ECG 12 lead ECGon 10-04-2024 ECG 12 lead ECG [facility] [place] [address] Electrocardiograph Report Signed Patient: Domo Piña MR#: [id number] : 1960 Acct:[id number] Age/Sex: 64 / M ADM Date: 10/04/24 Loc: ER Room: Type: [facility] ER Attending Dr: Ordering Provider: Kanwal Koroma APRN Date of Service: 10/04/24 ECG/ECG 12 lead ECG: Recheck/Abnormal Lab/Rx Copies to: Test Reason : Blood Pressure : */* mmHG Vent. Rate : 108 BPM Atrial Rate : 108 BPM P-R Int : 124 ms QRS Dur : 82 ms QT Int : 324 ms P-R-T Axes : 91 69 93 degrees QTcB Int : 434 ms Sinus tachycardia Otherwise normal ECG No previous ECGs available Confirmed by GALILEO DERAS DO ([id number]) on 10/04/2024 7:26:07 PM Referred By: Electronically Signed By: GALILEO DERAS DO Transcribed By: MUS Signed By Galileo Deras DO 1925 Normal [facility] Eosinophils [#/volume] in Bl ood by Automated countOrdered By: Kanwal Koroma on 10-04-2024 Eosinophils (Bld) [#/Vol] 0.0 10*3/uL Normal 0.0-0.45 [facility] Comment on above: Performed By: #### B MP, CBC #### [facility] [address] [place] [address] [place] Eosinophils/100 leukocytes i n Blood by Automated countOrdered By: Kanwal Koroma on 10-04-2024 Eosinophils/100 WBC (Bld) 0.1 % Normal . [facility] Comment on above: Performed By: #### B KEON, CBC #### [facility] [address] [place] [address] Erythrocyte distribution wid th [Ratio] by Automated countOrdered By: Kanwal Koroma on 10-04-2024 Erythrocyte distribution width (RBC) [Ratio] 14.0 % Normal 12.0-14.8 [facility] Comment on above: Performed By: #### B MP, CBC #### [facility] [address] [place] [address] [place] Erythrocytes [#/volume] in B lood by Automated countOrdered By: Kanwal Koroma on 10-04-2024 RBC (Bld) [#/Vol] 4.73 10*6/uL Normal 3.90-5.60 [facility] Comment on above: Performed By: #### B MP, CBC #### [place] [address] Glucose [Mass/volume] in Ser um or PlasmaOrdered By: Kanwal Koroma on 10-04-2024 Glucose [Mass/Vol] 123 mg/dL High 70-100 [facility] Comment on above: ADA recommended refe rence rangeRandom Glucose Reference Range is dependent on time and content of last meal. Glucose of more than 200 mg/dL in a nonstressed, ambulatory subject supports the diagnosis of Diabetes Mellitus. Result Comment: [place] om Glucose Reference Range is dependent on time and content of last meal. Glucose of more than 200 mg/dL in a nonstressed, ambulatory subject supports the diagnosis of Diabetes Mellitus. ADA recommended reference range Performed By: #### B MP, CBC #### [address] Hematocrit [Volume Fraction] of Blood by Automated countOrdered By: Kanwal Koroma on 10-04-2024 Hematocrit (Bld) [Volume fraction] 41.3 % Normal 38.8-50.0 [facility] Comment on above: Performed By: #### B MP, CBC #### [address] Hemoglobin [Mass/volume] in BloodOrdered By: Kanwal Koroma on 10-04-2024 Hemoglobin (Bld) [Mass/Vol] 13.6 g/dL Normal 13.0-17.0 [facility] Comment on above: Performed By: #### B MP, CBC #### [address] Laboratory - Microbiology an d Antimicrobial susceptibilityOrdered By: Kanwal Koroma on 10-04-2024 Bacteria identified Cx Nom (Bld) NO GROWTH 5 DAYS [facility] Bacteria identified Cx Nom (Bld) NO GROWTH 5 DAYS [facility] Lactate [Moles/volume] in Se rum or PlasmaOrdered By: Kanwal Koroma on 10-04-2024 Lactate [Moles/Vol] 1.1 mmol/L Normal 0.5-1.9 [facility] Comment on above: Lactic Acid referenc e range has been updated to 0.5 1.9 mmol/L and the critical range of 2.0 or greater. Result Comment: Lact ic Acid reference range has been updated to 0.5 ? 1.9 mmol/L and the critical range of 2.0 or greater. PERFORMED BY: [place] [address] PATHOLOGIST [employer] DRIVER CHARLES LOWE M.D. Performed By: #### B MP, CBC #### [facility] [address] [place] [address] Leukocytes [#/volume] correc madi for nucleated erythrocytes in Blood by Automated counOrdered By: Kanwal Koroma on 10-04-2024 WBC corrected for nucl RBC Auto (Bld) [#/Vol] 18.1 10*3/uL High 4.1-10.5 [facility] Leukocytes [#/volume] in Blo od by Automated countOrdered By: Kanwal Koroma on 10-04-2024 WBC (Bld) [#/Vol] 18.1 10*3/uL High 4.1-10.5 [facility] Comment on above: Performed By: #### B MP, CBC #### [address] Lipase [Enzymatic activity/v olume] in Serum or PlasmaOrdered By: Kanwal Koroma on 10-04-2024 Lipase [Catalytic activity/Vol] 13.0 U/L Normal 11.0-82.0 [facility] Comment on above: Result Comment: PERF ORMED BY: [place] [address] PATHOLOGIST [employer] DRIVER CHARLES LOWE M.D. Performed By: #### B MP, CBC #### [place] [address] [place] Lymphocytes [#/volume] in Bl ood by Automated countOrdered By: Kanwal Koroma on 10-04-2024 Lymphocytes (Bld) [#/Vol] 1.2 10*3/uL Normal 1.00-4.8 [facility] Comment on above: Performed By: #### B MP, CBC #### [place] [address] [place] Lymphocytes/100 leukocytes i n Blood by Automated countOrdered By: Kanwal Koroma on 10-04-2024 Lymphocytes/100 WBC (Bld) 6.8 % Normal . [facility] Comment on above: Performed By: #### B MP, CBC #### [place] [address] [place] MCH [Entitic mass] by Automa madi countOrdered By: Kanwal Koroma on 10-04-2024 MCH (RBC) [Entitic mass] 28.7 pg Normal 27.5-35.2 [facility] Comment on above: Performed By: #### B MP, CBC #### [address] MCHC Auto (RBC) [Mass/Vol]Or dered By: Kanwal Koroma on 10-04-2024 MCHC (RBC) [Mass/Vol] 32.9 g/dL 32.5-35.6 [facility] MCV [Entitic volume] by Auto mated countOrdered By: Kanwal Koroma on 10-04-2024 MCV (RBC) [Entitic vol] 87.3 fL Normal 83.5-101 [facility] Comment on above: Performed By: #### B MP, CBC #### [place] [address] [place] Monocyte distribution width [Entitic volume] in Blood by AutomatedOrdered By: Kanwal Koroma on 10-04-2024 Monocyte distribution width Auto (Bld) [Entitic vol] 19.07 % 0.00-20.00 [facility] Monocytes [#/volume] in Bloo d by Automated countOrdered By: Kanwal Koroma on 10-04-2024 Monocytes (Bld) [#/Vol] 1.4 10*3/uL High 0.0-0.8 [facility] Comment on above: Performed By: #### B MP, CBC #### [place] [address] [place] Monocytes/100 leukocytes in Blood by Automated countOrdered By: Kanwal Koroma on 10-04-2024 Monocytes/100 WBC (Bld) 8.0 % Normal . [facility] Comment on above: Performed By: #### B MP, CBC #### [facility] [address] Neutrophils [#/volume] in Bl ood by Automated countOrdered By: Kanwal Koroma on 10-04-2024 Neutrophils (Bld) [#/Vol] 15.4 10*3/uL High 1.8-7.7 [facility] Comment on above: Performed By: #### B MP, CBC #### [facility] [address] Neutrophils/100 leukocytes i n Blood by Automated countOrdered By: Kanwal Koroma on 10-04-2024 Neutrophils/100 WBC (Bld) 84.7 % Normal . [facility] Comment on above: Performed By: #### B MP, CBC #### [facility] [address] No Panel InformationOrdered By: Kanwal Koroma on 10-04-2024 Estimated GFR (CKD-EPI) > 60.0 mL/Min [facility] Creatinine Clearance (Chem 79.73 [facility] Nucleated erythrocytes [Pres ence] in Blood by Automated countOrdered By: Kanwal Koroma on 10-04-2024 Nucleated RBC Auto Ql (Bld) 0.1 /100{WBC} 0-0.5 [facility] Platelet mean volume [Entiti c volume] in Blood by Automated countOrdered By: Kanwal Koroma on 10-04-2024 Platelet mean volume (Bld) [Entitic vol] 9.1 fL Normal 6.6-10.1 [facility] Comment on above: Performed By: #### B MP, CBC #### [facility] [address] [place] [address] [place] Platelets [#/volume] in Bloo d by Automated countOrdered By: Kanwal Koroma on 10-04-2024 Platelets (Bld) [#/Vol] 247 10*3/uL Normal 150-450 [facility] Comment on above: Performed By: #### B MP, CBC #### [facility] [address] Potassium [Moles/volume] in Serum or PlasmaOrdered By: Kanwal Koroma on 10-04-2024 Potassium [Moles/Vol] 4.1 mmol/L Normal 3.5-5.1 [facility] Comment on above: Performed By: #### B MP, CBC #### [facility] [address] Protein [Mass/volume] in Ser um or PlasmaOrdered By: Kanwal Koroma on 10-04-2024 Protein [Mass/Vol] 8.1 g/dL Normal 6.4-8.9 [facility] Comment on above: Performed By: #### B MP, CBC #### [address] Serum globulin measurement b y calculation (mass/volume)Ordered By: Kanwal Koroma on 10-04-2024 Globulin (S) [Mass/Vol] 3.9 g/dL Normal [facility] Comment on above: Performed By: #### B MP, CBC #### [facility] [address] [place] [address] Serum or plasma albumin/glob ulin mass ratioOrdered By: Kanwal Koroma on 10-04-2024 Albumin/Globulin [Mass ratio] 1.1 {ratio} Normal [facility] Comment on above: Performed By: #### B MP, CBC #### [facility] [address] [place] [address] Serum or plasma anion gap de terminationOrdered By: Kanwal Koroma on 10-04-2024 Anion gap [Moles/Vol] 11.2 mmol/L Normal 6.0-15.0 [facility] Comment on above: Performed By: #### B MP, CBC #### [place] [address] [place] Sodium [Moles/volume] in Ser um or PlasmaOrdered By: Kanwal Koroma on 10-04-2024 Sodium [Moles/Vol] 134 mmol/L Low 136-145 [facility] Comment on above: Performed By: #### B MP, CBC #### [facility] [address] Superficial Wound Cultureon 10-04-2024 Superficial Wound Culture ORGANISM: Klebsiella oxytoca (O:KLEOXY) Quantity of Growth Light Growth Aerobic RUFINO Charge (NMIC56) SUSCEPTIBILITY ORGANISM: O:KLEOXY ANTIBIOTIC INTERPRETATION RUFINO Amikacin S <16 Amoxacillin/K Clavulanate S <8 Ampicillin/Sulbactam S 88/4 Aztreonam S <4 Cefazolin I 16 Cefepime S <2 Ceftazidime S <1 Ceftazidime/Avibactam S <4 Ceftolozane/Tazobactam S <2 Ceftriaxone S <1 Cefuroxime S <4 Ciprofloxacin S <0.25 Ertapenem S <0.5 Gentamicin S <2 Levofloxacin S <0.5 Meropenem S <1 Meropenem/Vaborbactam S <2 Piperacillin/Tazobactam S <8 Tetracycline S <4 Tigecycline S <2 Tobramycin S <2 Trimethoprim/Sulfamethoxaz ole S <0.5 S = SUSCEPTIBLE I = INTERMEDIATE R = RESISTANT BLANK = DATA NOT AVAILABLE, OR DRUG NOT ADVISABLE OR TESTED R* = RESISTANCE DUE TO EXTENDED SPECTRUM BETA-LACTAMASES ESBL = EXTENDED SPECTRUM BETA-LACTAMASE TFG = THYMIDINE-DEPENDENT STRAIN NATHALIE = BETA-LACTAMASE POSITIVE IB = INDUCIBLE BETA-LACTAMASE. APPEARS IN PLACE OF 'S' WITH SPECIES KNOWN TO POSSESS INDUCIBLE BETA-LACTAMASES. POTENTIALLY THEY MAY BECOME RESISTANT TO ALL B-LACTAM DRUGS. PERFORMED BY: [place] [address] PATHOLOGIST [employer] BUS DRIVER CHARLES LOWE M.D. Normal [facility] Comment on above: Performed By: #### B MP, CBC #### [facility] [address] [place] [id number] [facility] Urea nitrogen [Mass/volume] in Serum or PlasmaOrdered By: Kanwal Koroma on 10-04-2024 Urea nitrogen [Mass/Vol] 17 mg/dL Normal 10-14 [facility] Comment on above: Performed By: #### B MP, CBC #### [place] [id number] [facility] X-ray reportOrdered By: Alex Leyva on 10-04-2024 Study report [facility] [place] [address] XRay Report Signed Patient: Domo Piña MR#: [id number] : 1960 Acct:[id number] Age/Sex: 64 / M ADM Date: 5 Loc: ER Room: Type: PRE ER Attending Dr: Copies to: Kanwal Koroma APRN~ Ordering Provider: Kanwal Koroma APRN Date of Service: 10/04/24 XR/XR foot RT min 3V*: Recheck/Abnormal Lab/Rx XR foot RT min 3V* 10/04/2024 6:11 PM SIGNS AND SYMPTOMS: Right foot pain with pain along the metatarsals. PROTOCOL: Frontal, lateral, and oblique radiographs of the right foot COMPARISON: None FINDINGS: The bones are in anatomic alignment. There is narrowing of the first metatarsophalangeal joint. There is no fracture or dislocation. There is plantar surface calcaneal spurring. XR/XR foot RT min 3V* IMPRESSION: No acute bony injury. Similar degenerative changes are noted in the first metatarsophalangeal joint with plantar surface calcaneal spurring. Impression dictated by: Alex Leyva M.D. 10/04/2024 6:19 PM Dictation Location: [place] [address] Transcribed By: [facility] 10/04/241818 Dictated By: Alex Leyva II, MD 10/04/241816 Signed By: 10/04/241818 [facility] Work Phone: XR foot RT min 3V*on 025 XR foot RT min 3V* [facility] Main [place] [id number] XRay Report Signed Patient: Domo Piña MR#: [id number] : 1960 Acct:[id number] Age/Sex: 64 / M ADM Date: 10/04/24 Loc: ER Room: Type: PRE ER Attending Dr: Copies to: Kanwal Koroma APRN Ordering Provider: Kanwal Koroma APRN Date of Service: 10/04/24 XR/XR foot RT min 3V*: Recheck/Abnormal Lab/Rx XR foot RT min 3V* 10/04/2024 6:11 PM SIGNS AND SYMPTOMS: Right foot pain with pain along the metatarsals. PROTOCOL: Frontal, lateral, and oblique radiographs of the right foot COMPARISON: None FINDINGS: The bones are in anatomic alignment. There is narrowing of the first metatarsophalangeal joint. There is no fracture or dislocation. There is plantar surface calcaneal spurring. XR/XR foot RT min 3V* IMPRESSION: No acute bony injury. Similar degenerative changes are noted in the first metatarsophalangeal joint with plantar surface calcaneal spurring. Impression dictated by: Alex Leyva M.D. 10/04/2024 6:19 PM Dictation Location: [place] [address] Transcribed By: [facility] 10/04/241818 Dictated By: Alex Leyva II, MD 10/04/241816 Signed By: 10/04/241818 Normal [facility] Basophils [#/volume] in Bloo d by Automated countOrdered By: Vijay Lozano on 09-08-2024 Basophils (Bld) [#/Vol] 0.0 10*3/uL Normal 0.0-0.2 [facility] Comment on above: Result Comment: PERF ORMED BY: [place] [address] PATHOLOGIST [employer]IVER CHARLES LOWE M.D. Performed By: #### B MP, MG, CBC #### [address] Basophils/100 leukocytes in Blood by Automated countOrdered By: Vijay Lozano on 09-08-2024 Basophils/100 WBC (Bld) 0.2 % Normal . [facility] Comment on above: Performed By: #### B MP, MG, CBC #### [address] C reactive protein [Mass/vol ume] in Serum or PlasmaOrdered By: Vijay Lozano on 09-08-2024 CRP [Mass/Vol] 0.6 mg/dL High 0.0-0.5 [facility] C-Reactive Proteinon 025 C-Reactive Protein 0.6 mg/dL High 0.0-0.5 [facility] Comment on above: Result Comment: PERF ORMED BY: [place] [address] PATHOLOGIST [employer] DRIVER CHARLES LOWE M.D. Performed By: #### B MP, MG, CBC #### [address] abdomen pelvis w conon CT abdomen pelvis w con [facility] Main [place] [address] [place] [address] CT Scan Report Signed Patient: Domo Piña MR#: [id number] : 1960 Acct:[id number] Age/Sex: 64 / M ADM Date: 09/08/24 Loc: CT Room: Type: [facility] Attending Dr: Ines Wayne MD Copies to: Ines Wayne MD Ordering Provider: Ines Wayne MD Date of Service: 09/08/24 CT/CT [...] Pelvis:[Urinary bladder and prostate gland appear unremarkable.] Peritoneum/Retroperitoneum :No free air or free fluid or lymphadenopathy.[ Abd wall/Bones:Abdominal wall demonstrates no acute findings. Osseous structures demonstrate degenerative changes.[ CT/CT abdomen pelvis w con IMPRESSION: Persistent inflammatory changes are seen involving the left inguinal region with percutaneous pigtail catheter in place. No measurable fluid collection is noted. Impression dictated by: Gomez Henley Jr., D.O. 09/08/2024 3:19 PM Dictation Location: [place] [address] Transcribed By: [facility] 09/08/24 1519 Dictated By: Gomez Henley Jr, DO 09/08/24 1512 Signed By: 09/08/24 1519 Normal [facility] Complete Blood Count Auto Di ffon 09-08-2024 Mean Corpuscular HGB Conc 32.8 g/dL Normal 32.5-35.6 [facility] Comment on above: Performed By: #### B MP, MG, CBC #### [facility] [address] NRBC% 0.1 /100{WBC} Normal 0-0.5 [facility] Comment on above: Performed By: #### B MP, MG, CBC #### [facility] [address] White Blood Count 13.2 [CFU]/mL High 4.1-10.5 [facility] Comment on above: Performed By: #### B MP, MG, CBC #### [facility] [address] Eosinophils [#/volume] in Bl ood by Automated countOrdered By: Vijay Lozano on 09-08-2024 Eosinophils (Bld) [#/Vol] 0.3 10*3/uL Normal 0.0-0.45 [facility] Comment on above: Performed By: #### B MP, MG, CBC #### [address] Eosinophils/100 leukocytes i n Blood by Automated countOrdered By: Vijay Lozano on 09-08-2024 Eosinophils/100 WBC (Bld) 2.5 % Normal . [facility] Comment on above: Performed By: #### B MP, MG, CBC #### [address] Erythrocyte distribution wid th [Ratio] by Automated countOrdered By: Vijay Lozano on 09-08-2024 Erythrocyte distribution width (RBC) [Ratio] 14.4 % Normal 12.0-14.8 [facility] Comment on above: Performed By: #### B MP, MG, CBC #### [address] Erythrocytes [#/volume] in B lood by Automated countOrdered By: Vijay Lozano on 09-08-2024 RBC (Bld) [#/Vol] 4.96 10*6/uL Normal 3.90-5.60 [facility] Comment on above: Performed By: #### B MP, MG, CBC #### [address] Hematocrit [Volume Fraction] of Blood by Automated countOrdered By: Vijay Lozano on 09-08-2024 Hematocrit (Bld) [Volume fraction] 43.6 % Normal 38.8-50.0 [facility] Comment on above: Performed By: #### B MP, MG, CBC #### [place] [address] [place] Hemoglobin [Mass/volume] in BloodOrdered By: Vijay Lozano on 09-08-2024 Hemoglobin (Bld) [Mass/Vol] 14.3 g/dL Normal 13.0-17.0 [facility] Comment on above: Performed By: #### B MP, MG, CBC #### [place] [address] [place] Leukocytes [#/volume] correc madi for nucleated erythrocytes in Blood by Automated counOrdered By: Vijay Lozano on 09-08-2024 WBC corrected for nucl RBC Auto (Bld) [#/Vol] 13.2 10*3/uL High 4.1-10.5 [facility] Leukocytes [#/volume] in Blo od by Automated countOrdered By: Vijay Lozano on 09-08-2024 WBC (Bld) [#/Vol] 13.2 10*3/uL High 4.1-10.5 [facility] Comment on above: Performed By: #### B MP, MG, CBC #### [facility] [address] [place] [address] [place] Lymphocytes [#/volume] in Bl ood by Automated countOrdered By: Vijay Lozano on 09-08-2024 Lymphocytes (Bld) [#/Vol] 2.6 10*3/uL Normal 1.00-4.8 [facility] Comment on above: Performed By: #### B MP, MG, CBC #### [facility] [address] [place] [address] Lymphocytes/100 leukocytes i n Blood by Automated countOrdered By: Vijay Lozano on 09-08-2024 Lymphocytes/100 WBC (Bld) 19.5 % Normal . [facility] Comment on above: Performed By: #### B MP, MG, CBC #### [facility] [address] [place] [address] MCH [Entitic mass] by Automa madi countOrdered By: Vijay Lozano on 09-08-2024 MCH (RBC) [Entitic mass] 28.8 pg Normal 27.5-35.2 [facility] Comment on above: Performed By: #### B MP, MG, CBC #### [facility] [address] [place] [address] MCHC Auto (RBC) [Mass/Vol]Or dered By: Vijay Lozano on 09-08-2024 MCHC (RBC) [Mass/Vol] 32.8 g/dL 32.5-35.6 [facility] MCV [Entitic volume] by Auto mated countOrdered By: Vijay Lozano on 09-08-2024 MCV (RBC) [Entitic vol] 87.9 fL Normal 83.5-101 F [facility] Comment on above: Performed By: #### B MP, MG, CBC #### [facility] [address] [place] [address] [place] Monocytes [#/volume] in Bloo d by Automated countOrdered By: Vijay Lozano on 09-08-2024 Monocytes (Bld) [#/Vol] 1.2 10*3/uL High 0.0-0.8 [facility] Comment on above: Performed By: #### B MP, MG, CBC #### [facility] [address] [place] [address] [place] Monocytes/100 leukocytes in Blood by Automated countOrdered By: Vijay Lozano on 09-08-2024 Monocytes/100 WBC (Bld) 9.2 % Normal . [facility] Comment on above: Performed By: #### B MP, MG, CBC #### [facility] [address] [place] [address] [place] Neutrophils [#/volume] in Bl ood by Automated countOrdered By: Vijay Lozano on 09-08-2024 Neutrophils (Bld) [#/Vol] 9.1 10*3/uL High 1.8-7.7 [facility] Comment on above: Performed By: #### B MP, MG, CBC #### [facility] [address] [place] [address] [place] Neutrophils/100 leukocytes i n Blood by Automated countOrdered By: Vijay Lozano on 09-08-2024 Neutrophils/100 WBC (Bld) 68.6 % Normal . [facility] Comment on above: Performed By: #### B MP, MG, CBC #### [facility] [address] [place] [address] [place] Nucleated erythrocytes [Pres ence] in Blood by Automated countOrdered By: Vijay Lozano on 09-08-2024 Nucleated RBC Auto Ql (Bld) 0.1 /100{WBC} 0-0.5 [facility] Platelet mean volume [Entiti c volume] in Blood by Automated countOrdered By: Vijay Lozano on 09-08-2024 Platelet mean volume (Bld) [Entitic vol] 8.2 fL Normal 6.6-10.1 [facility] Comment on above: Performed By: #### B MP, MG, CBC #### [facility] [address] [place] [address] Platelets [#/volume] in Bloo d by Automated countOrdered By: Vijay Lozano on 09-08-2024 Platelets (Bld) [#/Vol] 296 10*3/uL Normal 150-450 [facility] Comment on above: Performed By: #### B MP, MG, CBC #### [address] Basic Metabolic Panelon Creatinine Clr Calc Pharmacy 83.07 Normal [facility] Comment on above: Performed By: #### B MP, CBC #### [address] GFR/1.73 sq M.predicted MDRD (S/P/Bld) [Vol rate/Area] mL/min/{1.73_m2} Normal [facility] Comment on above: Performed By: #### B MP, CBC #### [address] Basophils Auto (Bld) [#/Vol] Ordered By: Enoc Zepeda on 08-24-2024 Basophils (Bld) [#/Vol] Automated basophil count 0.0-0.2 [facility] Basophils [#/volume] in Bloo d by Automated countOrdered By: Enoc Zepeda on 08-24-2024 Basophils (Bld) [#/Vol] 0.1 10*3/uL Normal 0.0-0.2 [facility] Comment on above: Result Comment: PERF ORMED BY: [place] [address] PATHOLOGIST [employer] CHARLES LOWE M.D. Performed By: #### B MP, CBC #### [facility] [address] [place] [address] Basophils/100 WBC Auto (Bld) Ordered By: Enoc Zepeda on 08-24-2024 Basophils/100 WBC (Bld) Automated basophil % . [facility] Basophils/100 leukocytes in Blood by Automated countOrdered By: Enoc Zepeda on 08-24-2024 Basophils/100 WBC (Bld) 1.0 % Normal . [facility] Comment on above: Performed By: #### B MP, CBC #### [facility] [address] Calcium [Mass/volume] in Ser um or PlasmaOrdered By: Enoc Zepeda on 08-24-2024 Calcium [Mass/Vol] Calcium [Mass/volume ] in Serum or Plasma 8.6-10.3 [facility] Calcium [Mass/Vol] 8.7 mg/dL Normal 8.6-10.3 [facility] Comment on above: Performed By: #### B MP, CBC #### [facility] [address] Carbon dioxide, total [Moles /volume] in Serum or PlasmaOrdered By: Enoc Zepeda on 08-24-2024 CO2 [Moles/Vol] Carbon dioxide, tota l [Moles/volume] in Serum or Plasma 21.0-31.0 [facility] CO2 [Moles/Vol] 28.5 mmol/L Normal 21.0-31.0 [facility] Comment on above: Performed By: #### B MP, CBC #### [facility] [facility] [address] [place] [address] [place] Chloride [Moles/volume] in S nicole or PlasmaOrdered By: Enoc Zepeda on 08-24-2024 Chloride [Moles/Vol] Chloride [Moles/vol ume] in Serum or Plasma 98-107 [facility] Chloride [Moles/Vol] 104 mmol/L Normal 98-107 [facility] Comment on above: Performed By: #### B MP, CBC #### [facility] [address] Complete Blood Count Auto Di ffon 08-24-2024 Mean Corpuscular HGB Conc 33.0 g/dL Normal 32.5-35.6 [facility] Comment on above: Performed By: #### B MP, CBC #### [facility] [address] NRBC% 0.0 /100{WBC} Normal 0-0.5 [facility] Comment on above: Performed By: #### B MP, CBC #### [facility] [address] Creatinine [Mass/volume] in Serum or PlasmaOrdered By: Enoc Zepeda on 08-24-2024 Creatinine [Mass/Vol] Creatinine [Mass/v olume] in Serum or Plasma Low 0.70-1.30 [facility] Creatinine [Mass/Vol] 0.66 mg/dL Low 0.70-1.30 [facility] Comment on above: Performed By: #### B MP, CBC #### [facility] [address] [place] [address] Eosinophils Auto (Bld) [#/Vo l]Ordered By: Enoc Zepeda on 08-24-2024 Eosinophils (Bld) [#/Vol] Automated eosinophil count High 0.0-0.45 [facility] Eosinophils [#/volume] in Bl ood by Automated countOrdered By: Enoc Zepeda on 08-24-2024 Eosinophils (Bld) [#/Vol] 0.6 10*3/uL High 0.0-0.45 [facility] Comment on above: Performed By: #### B MP, CBC #### [facility] [address] [place] [address] [place] Eosinophils/100 WBC Auto (Bl d)Ordered By: Enoc Zepeda on 08-24-2024 Eosinophils/100 WBC (Bld) Automated eosinophil % . [facility] Eosinophils/100 leukocytes i n Blood by Automated countOrdered By: Enoc Zepeda on 08-24-2024 Eosinophils/100 WBC (Bld) 4.9 % Normal . [facility] Comment on above: Performed By: #### B MP, CBC #### [address] Erythrocyte distribution wid th Auto (RBC) [Ratio]Ordered By: Enoc Zepeda on 08-24-2024 Erythrocyte distribution width (RBC) [Ratio] Erythrocyte distribution width [Ratio] by Automated count 12.0-14.8 [facility] Erythrocyte distribution wid th [Ratio] by Automated countOrdered By: Enoc Zepeda on 08-24-2024 Erythrocyte distribution width (RBC) [Ratio] 13.8 % Normal 12.0-14.8 [facility] Comment on above: Performed By: #### B MP, CBC #### [facility] [address] Erythrocytes [#/volume] in B lood by Automated countOrdered By: Enoc Zepeda on 08-24-2024 RBC (Bld) [#/Vol] 4.39 10*6/uL Normal 3.90-5.60 [facility] Comment on above: Performed By: #### B MP, CBC #### [facility] [address] Glucose [Mass/volume] in Ser um or PlasmaOrdered By: Enoc Zepeda on 08-24-2024 Glucose [Mass/Vol] Glucose [Mass/volume ] in Serum or Plasma 70-100 [facility] Comment on above: ADA recommended refe rence rangeRandom Glucose Reference Range is dependent on time and content of last meal. Glucose of more than 200 mg/dL in a nonstressed, ambulatory subject supports the diagnosis of Diabetes Mellitus. Glucose [Mass/Vol] 92 mg/dL Normal 70-100 [facility] Comment on above: ADA recommended refe rence rangeRandom Glucose Reference Range is dependent on time and content of last meal. Glucose of more than 200 mg/dL in a nonstressed, ambulatory subject supports the diagnosis of Diabetes Mellitus. Result Comment: Spelter om Glucose Reference Range is dependent on time and content of last meal. Glucose of more than 200 mg/dL in a nonstressed, ambulatory subject supports the diagnosis of Diabetes Mellitus. ADA recommended reference range Performed By: #### B MP, CBC #### [facility] [address] Hematocrit Auto (Bld) [Volum e fraction]Ordered By: Enoc Zepeda on 08-24-2024 Hematocrit (Bld) [Volume fraction] Hematocrit [Volume Fraction] of Blood by Automated count Low 38.8-50.0 [facility] Hematocrit [Volume Fraction] of Blood by Automated countOrdered By: Enoc Zepeda on 08-24-2024 Hematocrit (Bld) [Volume fraction] 38.0 % Low 38.8-50.0 [facility] Comment on above: Performed By: #### B MP, CBC #### [facility] [address] [place] [address] Hemoglobin [Mass/volume] in BloodOrdered By: Enoc Zepeda on 08-24-2024 Hemoglobin (Bld) [Mass/Vol] Hemoglobin [Mass/volume] in Blood Low 13.0-17.0 [facility] Hemoglobin (Bld) [Mass/Vol] 12.5 g/dL Low 13.0-17.0 [facility] Comment on above: Performed By: #### B MP, CBC #### [facility] [address] [place] [address] Leukocytes [#/volume] correc madi for nucleated erythrocytes in Blood by Automated counOrdered By: Enoc Zepeda on 08-24-2024 WBC corrected for nucl RBC Auto (Bld) [#/Vol] Leukocytes [#/volume] corrected for nucleated erythrocytes in Blood by Automated coun High 4.1-10.5 [facility] WBC corrected for nucl RBC Auto (Bld) [#/Vol] 12.2 10*3/uL High 4.1-10.5 [facility] Leukocytes [#/volume] in Blo od by Automated countOrdered By: Enoc Zepeda on 08-24-2024 WBC (Bld) [#/Vol] 12.2 10*3/uL High 4.1-10.5 [facility] Comment on above: Performed By: #### B MP, CBC #### [facility] [address] [place] [address] Lymphocytes Auto (Bld) [#/Vo l]Ordered By: Enoc Zepeda on 08-24-2024 Lymphocytes (Bld) [#/Vol] Lymphocytes [#/volume] in Blood by Automated count 1.00-4.8 [facility] Lymphocytes [#/volume] in Bl ood by Automated countOrdered By: Enoc Zepeda on 08-24-2024 Lymphocytes (Bld) [#/Vol] 2.2 10*3/uL Normal 1.00-4.8 [facility] Comment on above: Performed By: #### B MP, CBC #### [facility] [address] [place] [address] Lymphocytes/100 WBC Auto (Bl d)Ordered By: Enoc Zepeda on 08-24-2024 Lymphocytes/100 WBC (Bld) Lymphocytes/100 leukocytes in Blood by Automated count . [facility] Lymphocytes/100 leukocytes i n Blood by Automated countOrdered By: Enoc Zepeda on 08-24-2024 Lymphocytes/100 WBC (Bld) 17.8 % Normal . [facility] Comment on above: Performed By: #### B MP, CBC #### [address] MCH Auto (RBC) [Entitic mass ]Ordered By: Enoc Zepeda on 08-24-2024 MCH (RBC) [Entitic mass] MCH [Entitic mass] by Automated count 27.5-35.2 [facility] MCH [Entitic mass] by Automa madi countOrdered By: Enoc Zepeda on 08-24-2024 MCH (RBC) [Entitic mass] 28.5 pg Normal 27.5-35.2 [facility] Comment on above: Performed By: #### B MP, CBC #### [facility] [address] [place] [address] MCHC Auto (RBC) [Mass/Vol]Or dered By: Enoc Zepeda on 08-24-2024 MCHC (RBC) [Mass/Vol] MCHC [Mass/volume] by Automated count 32.5-35.6 [facility] MCHC (RBC) [Mass/Vol] 33.0 g/dL 32.5-35.6 [facility] MCV Auto (RBC) [Entitic vol] Ordered By: Enoc Zepeda on 08-24-2024 MCV (RBC) [Entitic vol] MCV [Entitic vol ume] by Automated count 83.5-101 [facility] MCV [Entitic volume] by Auto mated countOrdered By: Enoc Zepeda on 08-24-2024 MCV (RBC) [Entitic vol] 86.5 fL Normal 83.5-101 [facility] Comment on above: Performed By: #### B MP, CBC #### [facility] [address] Magnesium [Mass/volume] in S nicole or PlasmaOrdered By: Enoc Zepeda on 08-24-2024 Magnesium [Mass/Vol] Magnesium [Mass/vol ume] in Serum or Plasma Low 1.9-2.7 [facility] Magnesium [Mass/Vol] 1.8 mg/dL Low 1.9-2.7 [facility] Comment on above: Result Comment: PERF ORMED BY: [address] [place] [address] PATHOLOGIST [employer] CHARLES LOWE M.D. Performed By: #### B MP, CBC #### [facility] [address] Monocytes Auto (Bld) [#/Vol] Ordered By: Enoc Zepeda on 08-24-2024 Monocytes (Bld) [#/Vol] Automated blood monocyte count High 0.0-0.8 [facility] Monocytes [#/volume] in Bloo d by Automated countOrdered By: Enoc Zepeda on 08-24-2024 Monocytes (Bld) [#/Vol] 1.1 10*3/uL High 0.0-0.8 [facility] Comment on above: Performed By: #### B MP, CBC #### [facility] [address] [place] [address] [place] Monocytes/100 WBC Auto (Bld) Ordered By: Enoc Zepeda on 08-24-2024 Monocytes/100 WBC (Bld) Automated monocyte % . [facility] Monocytes/100 leukocytes in Blood by Automated countOrdered By: Enoc Zepeda on 08-24-2024 Monocytes/100 WBC (Bld) 9.3 % Normal . [facility] Comment on above: Performed By: #### B MP, CBC #### [facility] [address] [place] [address] [place] Neutrophils Auto (Bld) [#/Vo l]Ordered By: Enoc Zepeda on 08-24-2024 Neutrophils (Bld) [#/Vol] Neutrophils [#/volume] in Blood by Automated count High 1.8-7.7 [facility] Neutrophils [#/volume] in Bl ood by Automated countOrdered By: Enoc Zepeda on 08-24-2024 Neutrophils (Bld) [#/Vol] 8.2 10*3/uL High 1.8-7.7 [facility] Comment on above: Performed By: #### B MP, CBC #### [facility] [address] [place] [address] Neutrophils/100 WBC Auto (Bl d)Ordered By: Enoc Zepeda on 08-24-2024 Neutrophils/100 WBC (Bld) Automated neutrophil % . [facility] Neutrophils/100 leukocytes i n Blood by Automated countOrdered By: Enoc Zepeda on 08-24-2024 Neutrophils/100 WBC (Bld) 67.0 % Normal . [facility] Comment on above: Performed By: #### B MP, CBC #### [facility] [address] [place] [address] No Panel InformationOrdered By: Enoc Zepeda on 08-24-2024 Estimated GFR (CKD-EPI) > 60.0 mL/Min [facility] Creatinine Clearance (Chem 83.07 [facility] Nucleated erythrocytes [Pres ence] in Blood by Automated countOrdered By: Enoc Zepeda on 08-24-2024 Nucleated RBC Auto Ql (Bld) Nucleated erythrocytes [Presence] in Blood by Automated count 0-0.5 [facility] Nucleated RBC Auto Ql (Bld) 0.0 /100{WBC} 0-0.5 [facility] Platelet mean volume Auto (B ld) [Entitic vol]Ordered By: Enoc Zepeda on 08-24-2024 Platelet mean volume (Bld) [Entitic vol] Platelet mean volume [Entitic volume] in Blood by Automated count 6.6-10.1 [facility] Platelet mean volume [Entiti c volume] in Blood by Automated countOrdered By: Enoc Zepeda on 08-24-2024 Platelet mean volume (Bld) [Entitic vol] 8.6 fL Normal 6.6-10.1 [facility] Comment on above: Performed By: #### B MP, CBC #### [facility] [address] Platelets Auto (Bld) [#/Vol] Ordered By: Enoc Zepeda on 08-24-2024 Platelets (Bld) [#/Vol] Platelets [#/vol ume] in Blood by Automated count 150-450 [facility] Platelets [#/volume] in Bloo d by Automated countOrdered By: Enoc Zepeda on 08-24-2024 Platelets (Bld) [#/Vol] 294 10*3/uL Normal 150-450 [facility] Comment on above: Performed By: #### B MP, CBC #### [address] Potassium [Moles/volume] in Serum or PlasmaOrdered By: Enoc Zepeda on 08-24-2024 Potassium [Moles/Vol] Potassium [Moles/v olume] in Serum or Plasma 3.5-5.1 [facility] Potassium [Moles/Vol] 4.1 mmol/L Normal 3.5-5.1 [facility] Comment on above: Performed By: #### B MP, CBC #### [facility] [address] [place] [address] RBC Auto (Bld) [#/Vol]Ordere d By: Enoc Zepeda on 08-24-2024 RBC (Bld) [#/Vol] Erythrocytes [#/volu me] in Blood by Automated count 3.90-5.60 [facility] Serum or plasma anion gap de terminationOrdered By: Enoc Zepeda on 08-24-2024 Anion gap [Moles/Vol] Serum or plasma an ion gap determination 6.0-15.0 [facility] Anion gap [Moles/Vol] 9.6 mmol/L Normal 6.0-15.0 [facility] Comment on above: Performed By: #### B MP, CBC #### [facility] [address] [place] [address] [place] Sodium [Moles/volume] in Ser um or PlasmaOrdered By: Enoc Zepeda on 08-24-2024 Sodium [Moles/Vol] Sodium [Moles/volume ] in Serum or Plasma 136-145 [facility] Sodium [Moles/Vol] 138 mmol/L Normal 136-145 [facility] Comment on above: Performed By: #### B MP, CBC #### [facility] [address] [place] [address] [place] Urea nitrogen [Mass/volume] in Serum or PlasmaOrdered By: Enoc Zepeda on 08-24-2024 Urea nitrogen [Mass/Vol] Urea nitrogen [Mass/volume] in Serum or Plasma 10-14 [facility] Urea nitrogen [Mass/Vol] 11 mg/dL Normal 10-14 [facility] Comment on above: Performed By: #### B MP, CBC #### [facility] [address] [place] [address] [place] WBC Auto (Bld) [#/Vol]Ordere d By: Enoc Zepeda on 08-24-2024 WBC (Bld) [#/Vol] Leukocytes [#/volume ] in Blood by Automated count High 4.1-10.5 [facility] Basic Metabolic Panelon Anion gap [Moles/Vol] 10.3 mmol/L Normal 6.0-15.0 [facility] Comment on above: Performed By: #### B MP, MG, CBC #### [facility] [address] [place] [address] [place] Calcium [Mass/Vol] 8.6 mg/dL Normal 8.6-10.3 [facility] Comment on above: Performed By: #### B MP, MG, CBC #### [facility] [address] [place] [address] [place] Chloride [Moles/Vol] 104 mmol/L Normal 98-107 [facility] Comment on above: Performed By: #### B MP, MG, CBC #### [facility] [address] CO2 [Moles/Vol] 27.7 mmol/L Normal 21.0-31.0 [facility] Comment on above: Performed By: #### B MP, MG, CBC #### [facility] [address] [place] [address] [place] Creatinine [Mass/Vol] 0.63 mg/dL Low 0.70-1.30 [facility] Comment on above: Performed By: #### B MP, MG, CBC #### [facility] [address] [place] [address] [place] Creatinine Clr Calc Pharmacy 83.07 Normal [facility] Comment on above: Performed By: #### B MP, MG, CBC #### [place] [address] [place] GFR/1.73 sq M.predicted MDRD (S/P/Bld) [Vol rate/Area] mL/min/{1.73_m2} Normal [facility] Comment on above: Performed By: #### B MP, MG, CBC #### [address] Glucose [Mass/Vol] 100 mg/dL Normal 70-100 [facility] Comment on above: Result Comment: [place] Glucose Reference Range is dependent on time and content of last meal. Glucose of more than 200 mg/dL in a nonstressed, ambulatory subject supports the diagnosis of Diabetes Mellitus. ADA recommended reference range Performed By: #### B MP, MG, CBC #### [facility] [address] Potassium [Moles/Vol] 4.0 mmol/L Normal 3.5-5.1 [facility] Comment on above: Performed By: #### B MP, MG, CBC #### [facility] [address] [place] [address] [place] Sodium [Moles/Vol] 138 mmol/L Normal 136-145 [facility] Comment on above: Performed By: #### B MP, MG, CBC #### [address] Urea nitrogen [Mass/Vol] 13 mg/dL Normal 7-25 [facility] Comment on above: Performed By: #### B MP, MG, CBC #### [address] Complete Blood Count Auto Di ffon 08-23-2024 Basophils (Bld) [#/Vol] 0.1 10*3/uL Normal 0.0-0.2 [facility] Comment on above: Result Comment: PERF ORMED BY: [place] [address] PATHOLOGIST [employer] CHARLES LOWE M.D. Performed By: #### B MP, MG, CBC #### [address] Basophils/100 WBC (Bld) 1.2 % Normal . [facility] Comment on above: Performed By: #### B MP, MG, CBC #### [address] Eosinophils (Bld) [#/Vol] 0.4 10*3/uL Normal 0.0-0.45 [facility] Comment on above: Performed By: #### B MP, MG, CBC #### [address] Eosinophils/100 WBC (Bld) 3.9 % Normal . [facility] Comment on above: Performed By: #### B MP, MG, CBC #### [address] Erythrocyte distribution width (RBC) [Ratio] 13.7 % Normal 12.0-14.8 [facility] Comment on above: Performed By: #### B MP, MG, CBC #### [address] Hematocrit (Bld) [Volume fraction] 36.9 % Low 38.8-50.0 [facility] Comment on above: Performed By: #### B MP, MG, CBC #### [address] Hemoglobin (Bld) [Mass/Vol] 12.2 g/dL Low 13.0-17.0 [facility] Comment on above: Performed By: #### B MP, MG, CBC #### [address] Lymphocytes (Bld) [#/Vol] 2.4 10*3/uL Normal 1.00-4.8 [facility] Comment on above: Performed By: #### B MP, MG, CBC #### [address] Lymphocytes/100 WBC (Bld) 21.5 % Normal . [facility] Comment on above: Performed By: #### B MP, MG, CBC #### [address] MCH (RBC) [Entitic mass] 28.4 pg Normal 27.5-35.2 [facility] Comment on above: Performed By: #### B MP, MG, CBC #### [address] MCV (RBC) [Entitic vol] 85.7 fL Normal 83.5-101 [facility] Comment on above: Performed By: #### B MP, MG, CBC #### [address] Mean Corpuscular HGB Conc 33.2 g/dL Normal 32.5-35.6 [facility] Comment on above: Performed By: #### B MP, MG, CBC #### [place] [address] [place] Monocytes (Bld) [#/Vol] 1.1 10*3/uL High 0.0-0.8 [facility] Comment on above: Performed By: #### B MP, MG, CBC #### [place] [address] [place] Monocytes/100 WBC (Bld) 9.5 % Normal . [facility] Comment on above: Performed By: #### B MP, MG, CBC #### [facility] [address] Neutrophils (Bld) [#/Vol] 7.0 10*3/uL Normal 1.8-7.7 [facility] Comment on above: Performed By: #### B MP, MG, CBC #### [facility] [address] Neutrophils/100 WBC (Bld) 63.9 % Normal . [facility] Comment on above: Performed By: #### B MP, MG, CBC #### [facility] [address] NRBC% 0.0 /100{WBC} Normal 0-0.5 [facility] Comment on above: Performed By: #### B MP, MG, CBC #### [facility] [address] [place] [address] Platelet mean volume (Bld) [Entitic vol] 8.4 fL Normal 6.6-10.1 [facility] Comment on above: Performed By: #### B MP, MG, CBC #### [facility] [address] [place] [address] [place] Platelets (Bld) [#/Vol] 283 10*3/uL Normal 150-450 [facility] Comment on above: Performed By: #### B MP, MG, CBC #### [facility] [address] [place] [address] RBC (Bld) [#/Vol] 4.30 10*6/uL Normal 3.90-5.60 [facility] Comment on above: Performed By: #### B MP, MG, CBC #### [facility] [address] [place] [address] [place] WBC (Bld) [#/Vol] 11.0 10*3/uL High 4.1-10.5 [facility] Comment on above: Performed By: #### B MP, MG, CBC #### [facility] [address] [place] [address] Magnesiumon 08-23-2024 Magnesium [Mass/Vol] 1.7 mg/dL Low 1.9-2.7 [facility] Comment on above: Result Comment: PERF ORMED BY: [place] [address] PATHOLOGIST [employer] CHARLES LOWE M.D. Performed By: #### B MP, MG, CBC #### [address] Aerobic Cultureon 08-22-2024 Aerobic Culture Comment diverticular ORGANISM: Pseudomonas aeruginosa (O:PSEAER) Quantity of Growth Light Growth Comment diverticular Anaerobic Culture Results No Anaerobes Isolated 3 Days Comment diverticular Gram Stain Result 4+ White Blood Cells Rare Gram Positive Bacilli Rare Epithelial Cells Aerobic RUFINO Charge (NMIC56) SUSCEPTIBILITY ORGANISM: O:PSEAER ANTIBIOTIC INTERPRETATION RUFINO Amikacin S <16 Aztreonam I <4 Cefepime S <2 Ceftazidime I <1 Ceftazidime/Avibactam S <4 Ceftolozane/Tazobactam S <2 Ciprofloxacin S <0.25 Gentamicin S <2 Levofloxacin S <0.5 Meropenem S <1 Piperacillin/Tazobactam I <8 Tobramycin S <2 S = SUSCEPTIBLE I = INTERMEDIATE R = RESISTANT BLANK = DATA NOT AVAILABLE, OR DRUG NOT ADVISABLE OR TESTED R* = RESISTANCE DUE TO EXTENDED SPECTRUM BETA-LACTAMASES ESBL = EXTENDED SPECTRUM BETA-LACTAMASE TFG = THYMIDINE-DEPENDENT STRAIN NATHALIE = BETA-LACTAMASE POSITIVE IB = INDUCIBLE BETA-LACTAMASE. APPEARS IN PLACE OF 'S' WITH SPECIES KNOWN TO POSSESS INDUCIBLE BETA-LACTAMASES. POTENTIALLY THEY MAY BECOME RESISTANT TO ALL B-LACTAM DRUGS. PERFORMED BY: [place] [address] PATHOLOGIST MOTOR CO[employer] DRIVER CHARLES LOWE M.D. Normal [facility] Comment on above: Performed By: #### A ERC #### [place] [id number] [facility] Aerobic cultureOrdered By: Quirino Zepeda on 08-22-2024 Bacteria identified Aer cx Nom (Unsp spec) Pseudomonas aeruginosa Abnormal [facility] Alanine aminotransferase [En zymatic activity/volume] in Serum or PlasmaOrdered By: Tiffany Masters on 08-22-2024 ALT [Catalytic activity/Vol] Alanine aminotransferase [Enzymatic activity/volume] in Serum or Plasma [facility] ALT [Catalytic activity/Vol] 16 U/L Normal [facility] Comment on above: Performed By: #### B MP, CBC #### [facility] [address] Albumin [Mass/volume] in Ser um or Plasma by Bromocresol green (BCG) dye binding methoOrdered By: Tiffany Masters on 08-22-2024 Albumin BCG dye [Mass/Vol] Albumin [Mass/volume] in Serum or Plasma by Bromocresol green (BCG) dye binding metho 3.5-5.7 [facility] Albumin BCG dye [Mass/Vol] 3.7 g/dL 3.5-5.7 [facility] Alkaline phosphatase [Enzyma tic activity/volume] in Serum or PlasmaOrdered By: Tiffany Masters on 08-22-2024 ALP [Catalytic activity/Vol] Alkaline phosphatase [Enzymatic activity/volume] in Serum or Plasma 34-104 [facility] ALP [Catalytic activity/Vol] 76 U/L Normal 34-104 [facility] Comment on above: Performed By: #### B MP, CBC #### [facility] [address] Anaerobic cultureOrdered By: Enoc Zepeda on 08-22-2024 Bacteria identified Anaer cx Nom (Unsp spec) [facility] Aspartate aminotransferase [ Enzymatic activity/volume] in Serum or PlasmaOrdered By: Tiffany Masters on 08-22-2024 AST [Catalytic activity/Vol] Aspartate aminotransferase [Enzymatic activity/volume] in Serum or Plasma 13-39 [facility] AST [Catalytic activity/Vol] 14 U/L Normal 13-39 [facility] Comment on above: Performed By: #### B MP, CBC #### [facility] [address] [place] [id number] [facility] Bilirubin.total [Mass/volume ] in Serum or PlasmaOrdered By: Tiffany Masters on 08-22-2024 Bilirubin [Mass/Vol] Bilirubin.total [Mass/volume] in Serum or Plasma 0.3-1.0 [facility] Bilirubin [Mass/Vol] 0.4 mg/dL Normal 0.3-1.0 [facility] Comment on above: Performed By: #### B MP, CBC #### [facility] [address] [place], [place] [id number] [facility] CT guided drainageon 025 CT guided drainage [facility] [place] [address] [place] [address] CT Scan Report Signed Patient: Domo Piña MR#: [id number] : 1960 Acct:[id number] Age/Sex: 64 / M ADM Date: 08/21/24 Loc: Room: [address] [place] [address] Type: DIS IN Attending Dr: Enoc Zepeda DO Copies to: MD Enoc Love DO Ordering Provider: Ines Wayne MD; Enoc Zepeda DO Date of Service: 08/22/24 CT/CT guided drainage: Diverticular abscess ([id number]) CT/CT guided catheter placement: , CT guided [...] Leyva M.D. 08/22/2024 3:10 PM Dictation Location: [place] [address] Transcribed By: MAGALY 08/22/24 1510 Dictated By: Alex Leyva II, MD 08/22/24 1508 Signed By: 08/22/24 1510 Normal [facility] Complete Blood Count Auto Di ffon 08-22-2024 Basophils (Bld) [#/Vol] 0.1 10*3/uL Normal 0.0-0.2 [facility] Comment on above: Result Comment: PERF ORMED BY: [place] [address] PATHOLOGIST [employer] DRIVER CHARLES LOWE M.D. Performed By: #### B MP, CBC #### [address] Basophils/100 WBC (Bld) 0.6 % Normal . T kirti [facility] Comment on above: Performed By: #### B MP, CBC #### [address] Eosinophils (Bld) [#/Vol] 0.3 10*3/uL Normal 0.0-0.45 [facility] Comment on above: Performed By: #### B MP, CBC #### [place] [address] [place] Eosinophils/100 WBC (Bld) 2.3 % Normal . [facility] Comment on above: Performed By: #### B MP, CBC #### [address] Erythrocyte distribution width (RBC) [Ratio] 13.8 % Normal 12.0-14.8 [facility] Comment on above: Performed By: #### B MP, CBC #### [address] Hematocrit (Bld) [Volume fraction] 38.7 % Low 38.8-50.0 [facility] Comment on above: Performed By: #### B MP, CBC #### [address] Hemoglobin (Bld) [Mass/Vol] 13.2 g/dL Normal 13.0-17.0 [facility] Comment on above: Performed By: #### B MP, CBC #### [address] Lymphocytes (Bld) [#/Vol] 2.3 10*3/uL Normal 1.00-4.8 [facility] Comment on above: Performed By: #### B MP, CBC #### [address] Lymphocytes/100 WBC (Bld) 19.9 % Normal . [facility] Comment on above: Performed By: #### B MP, CBC #### [address] MCH (RBC) [Entitic mass] 29.1 pg Normal 27.5-35.2 [facility] Comment on above: Performed By: #### B MP, CBC #### [address] MCV (RBC) [Entitic vol] 85.1 fL Normal 83.5-101 [facility] Comment on above: Performed By: #### B MP, CBC #### [address] Mean Corpuscular HGB Conc 34.1 g/dL Normal 32.5-35.6 [facility] Comment on above: Performed By: #### B MP, CBC #### [address] Monocytes (Bld) [#/Vol] 1.1 10*3/uL High 0.0-0.8 [facility] Comment on above: Performed By: #### B MP, CBC #### [facility] [address] [place] [address] [place] Monocytes/100 WBC (Bld) 9.4 % Normal . [facility] Comment on above: Performed By: #### B MP, CBC #### [facility] [address] [place] [address] [place] Neutrophils (Bld) [#/Vol] 7.8 10*3/uL High 1.8-7.7 [facility] Comment on above: Performed By: #### B MP, CBC #### [facility] [address] Neutrophils/100 WBC (Bld) 67.8 % Normal . [facility] Comment on above: Performed By: #### B MP, CBC #### [address] NRBC% 0.1 /100{WBC} Normal 0-0.5 [facility] Comment on above: Performed By: #### B MP, CBC #### [facility] [address] Platelet mean volume (Bld) [Entitic vol] 8.7 fL Normal 6.6-10.1 [facility] Comment on above: Performed By: #### B MP, CBC #### [place] [address] [place] Platelets (Bld) [#/Vol] 275 10*3/uL Normal 150-450 [facility] Comment on above: Performed By: #### B MP, CBC #### [facility] [address] [place] [address] [place] RBC (Bld) [#/Vol] 4.55 10*6/uL Normal 3.90-5.60 [facility] Comment on above: Performed By: #### B MP, CBC #### [facility] [address] [place] [address] [place] WBC (Bld) [#/Vol] 11.5 10*3/uL High 4.1-10.5 [facility] Comment on above: Performed By: #### B MP, CBC #### [address] Comprehensive Metabolic Pane kevon 08-22-2024 Albumin [Mass/Vol] 3.7 g/dL Normal 3.5-5.7 [facility] Comment on above: Performed By: #### B MP, CBC #### [address] Anion gap [Moles/Vol] 10.8 mmol/L Normal 6.0-15.0 [facility] e [facility] Comment on above: Performed By: #### B MP, CBC #### [address] Calcium [Mass/Vol] 8.8 mg/dL Normal 8.6-10.3 [facility] Comment on above: Performed By: #### B MP, CBC #### [address] Chloride [Moles/Vol] 100 mmol/L Normal 98-107 [facility] Comment on above: Performed By: #### B MP, CBC #### [address] CO2 [Moles/Vol] 29.2 mmol/L Normal 21.0-31.0 [facility] Comment on above: Performed By: #### B MP, CBC #### [address] Creatinine [Mass/Vol] 0.67 mg/dL Low 0.70-1.30 [facility] Comment on above: Performed By: #### B MP, CBC #### [place] [address] [place] Creatinine Clr Calc Pharmacy 83.07 Normal [facility] Comment on above: Result Comment: PERF ORMED BY: [place] [address] PATHOLOGIST [employer]OR [employer] DRIVER CHARLES LOWE M.D. Performed By: #### B MP, CBC #### [place] [address] [place] GFR/1.73 sq M.predicted MDRD (S/P/Bld) [Vol rate/Area] mL/min/{1.73_m2} Normal [facility] Comment on above: Performed By: #### B MP, CBC #### [facility] [address] Glucose [Mass/Vol] 100 mg/dL Normal 70-100 [facility] Comment on above: Result Comment: [facility] Glucose Reference Range is dependent on time and content of last meal. Glucose of more than 200 mg/dL in a nonstressed, ambulatory subject supports the diagnosis of Diabetes Mellitus. ADA recommended reference range Performed By: #### B MP, CBC #### [facility] [address] Potassium [Moles/Vol] 4.0 mmol/L Normal 3.5-5.1 [facility] Comment on above: Performed By: #### B MP, CBC #### [facility] [address] [place] [address] [place] Sodium [Moles/Vol] 136 mmol/L Normal 136-145 [facility] Comment on above: Performed By: #### B MP, CBC #### [facility] [address] Urea nitrogen [Mass/Vol] 13 mg/dL Normal 7-25 [facility] Comment on above: Performed By: #### B MP, CBC #### [place] [address] [place] Globulin Calc (S) [Mass/Vol] Ordered By: Tiffany Masters on 08-22-2024 Globulin (S) [Mass/Vol] Serum globulin m easurement by calculation (mass/volume) [facility] Gram stain microscopyOrdered By: Enoc Zepeda on 08-22-2024 Microscopic observation Gram stain Nom (Unsp spec) Gram stain microscopy [facility] Microscopic observation Gram stain Nom (Unsp spec) [facility] INR in Platelet poor plasma by Coagulation assayOrdered By: Tiffany Masters on 08-22-2024 INR Coag (PPP) [Relative time] INR in Platelet poor plasma by Coagulation assay [facility] Comment on above: INR Therapeutic Rang e A) Pre- and Peroperative OAT started two weeks before surgery. NOT HIP SURGERY: 1.5 - 2.5 HIP SURGERY: 2 - 3B) Primary and secondary prevention of venous THROMBOSIS: 2 - 3C) Active venous thrombosis, pulmonary embolismand prevention of recurrent venous thrombosis: 2 - 3D) Prevention of arterial thromboembolismincluding patients with mechanical heart valves: 3 - 4.5 INR Coag (PPP) [Relative time] 1.1 {INR} Normal [facility] Comment on above: INR Therapeutic Rang e A) Pre- and Peroperative OAT started two weeks before surgery. NOT HIP SURGERY: 1.5 - 2.5 HIP SURGERY: 2 - 3B) Primary and secondary prevention of venous THROMBOSIS: 2 - 3C) Active venous thrombosis, pulmonary embolismand prevention of recurrent venous thrombosis: 2 - 3D) Prevention of arterial thromboembolismincluding patients with mechanical heart valves: 3 - 4.5 Result Comment: INR Therapeutic Range A) Pre- and Peroperative OAT started two weeks before surgery. NOT HIP SURGERY: 1.5 - 2.5 HIP SURGERY: 2 - 3 B) Primary and secondary prevention of venous THROMBOSIS: 2 - 3 C) Active venous thrombosis, pulmonary embolism and prevention of recurrent venous thrombosis: 2 - 3 D) Prevention of arterial thromboembolism including patients with mechanical heart valves: 3 - 4.5 Performed By: #### B KEON, CBC #### [facility] [address] [place], [place] [id number] [facility] Partial Thromboplastin Timeo n 08-22-2024 aPTT Coag (Bld) [Time] 30.2 s Normal 25.1-36.5 [facility] Comment on above: Result Comment: A he matocrit value greater than 55% may lead to inaccurate results in coagulation testing. Patients having hematocrit values >55% require a special collection tube for coagulation studies. Please contact the laboratory at [phone] for redraw instructions. PERFORMED BY: [place] [id number] PATHOLOGIST MOTOR CO[employer] DRIVER CHARLES LOWE M.D. Performed By: #### B MP, CBC #### [facility] [address] [place], [place] [id number] [facility] Protein [Mass/volume] in Ser um or PlasmaOrdered By: Kristianh Daromar on 08-22-2024 Protein [Mass/Vol] Protein [Mass/volume ] in Serum or Plasma 6.4-8.9 [facility] Protein [Mass/Vol] 7.0 g/dL Normal 6.4-8.9 [facility] Comment on above: Performed By: #### B MP, CBC #### [facility] [address] Prothrombin time (PT)Ordered By: Obaydah Daromar on 08-22-2024 PT Coag (PPP) [Time] Prothrombin time (PT) 9.0- 12.9 [facility] Comment on above: A hematocrit value g reater than 55% may lead to inaccurate results in coagulation testing. Patients having hematocrit values >55% require a special collection tube for coagulation studies. Please contact the laboratory at [phone] for redraw instructions. PT Coag (PPP) [Time] 12.3 s Normal 9.0-12.9 [facility] Comment on above: A hematocrit value g reater than 55% may lead to inaccurate results in coagulation testing. Patients having hematocrit values >55% require a special collection tube for coagulation studies. Please contact the laboratory at [phone] for redraw instructions. Result Comment: A he matocrit value greater than 55% may lead to inaccurate results in coagulation testing. Patients having hematocrit values >55% require a special collection tube for coagulation studies. Please contact the laboratory at [phone] for redraw instructions. Performed By: #### B MP, CBC #### [facility] [address] Serum globulin measurement b y calculation (mass/volume)Ordered By: [employer] on 08-22-2024 Globulin (S) [Mass/Vol] 3.3 g/dL Normal F [facility] Comment on above: Performed By: #### B MP, CBC #### [facility] [address] Serum or plasma albumin/glob ulin mass ratioOrdered By: Obaydah Daromar on 08-22-2024 Albumin/Globulin [Mass ratio] Serum or plasma albumin/globulin mass ratio [facility] Albumin/Globulin [Mass ratio] 1.1 {ratio} Normal [facility] Comment on above: Performed By: #### B MP, CBC #### [place] [id number] [facility] aPTT in Platelet poor plasma by Coagulation assayOrdered By: Tiffany Masters on 08-22-2024 aPTT Coag (PPP) [Time] Activated partial thromboplastin time (aPTT) in platelet poor plasma by coagulation a 25.1-36.5 [facility] Comment on above: A hematocrit value g reater than 55% may lead to inaccurate results in coagulation testing. Patients having hematocrit values >55% require a special collection tube for coagulation studies. Please contact the laboratory at [phone] for redraw instructions. aPTT Coag (PPP) [Time] 30.2 s 25.1-36.5 [facility] Comment on above: A hematocrit value g reater than 55% may lead to inaccurate results in coagulation testing. Patients having hematocrit values >55% require a special collection tube for coagulation studies. Please contact the laboratory at [phone] for redraw instructions. Alanine aminotransferase [En zymatic activity/volume] in Serum or PlasmaOrdered By: Nicholas Valle on 08-21-2024 ALT [Catalytic activity/Vol] Alanine aminotransferase [Enzymatic activity/volume] in Serum or Plasma 7-52 [facility] Albumin [Mass/volume] in Ser um or Plasma by Bromocresol green (BCG) dye binding methoOrdered By: Nicholas Valle on 08-21-2024 Albumin BCG dye [Mass/Vol] Albumin [Mass/volume] in Serum or Plasma by Bromocresol green (BCG) dye binding metho 3.5-5.7 [facility] Alkaline phosphatase [Enzyma tic activity/volume] in Serum or PlasmaOrdered By: Nicholas Valle on 08-21-2024 ALP [Catalytic activity/Vol] Alkaline phosphatase [Enzymatic activity/volume] in Serum or Plasma 34-104 [facility] Appearance of UrineOrdered B y: Nicholas Valle on 08-21-2024 Appearance (U) Urine appearance Abnormal Clear [facility] Appearance (U) Cloudy Critically abnormal Clear [facility] Comment on above: Order Comment: Name Collection Type:: Clean-Voided Midstream Performed By: #### B MP, CBC #### [address] Aspartate aminotransferase [ Enzymatic activity/volume] in Serum or PlasmaOrdered By: Nicholas Valle on 08-21-2024 AST [Catalytic activity/Vol] Aspartate aminotransferase [Enzymatic activity/volume] in Serum or Plasma 13-39 [facility] Bacteria [Presence] in Urine by AutomatedOrdered By: Nicholas Valle on 08-21-2024 Bacteria Auto Ql (U) Bacteria [Presence] in Urine by Automated None Seen [facility] Bacteria Auto Ql (U) None seen [HPF] None Seen [facility] Basic Metabolic Panelon Anion gap [Moles/Vol] 13.4 mmol/L Normal 6.0-15.0 [facility] Comment on above: Performed By: #### L IPASE, BMP, CBC, HEPATIC #### [address] Calcium [Mass/Vol] 9.5 mg/dL Normal 8.6-10.3 [facility] Comment on above: Performed By: #### L IPASE, BMP, CBC, HEPATIC #### [address] Chloride [Moles/Vol] 102 mmol/L Normal 98-107 [facility] Comment on above: Performed By: #### L IPASE, BMP, CBC, HEPATIC #### [address] CO2 [Moles/Vol] 25.3 mmol/L Normal 21.0-31.0 [facility] Comment on above: Performed By: #### L IPASE, BMP, CBC, HEPATIC #### [address] Creatinine [Mass/Vol] 0.78 mg/dL Normal 0.70-1.30 [facility] Comment on above: Performed By: #### L IPASE, BMP, CBC, HEPATIC #### [address] [place] [address] [place] Creatinine Clr Calc Pharmacy 83.07 Normal [facility] Comment on above: Performed By: #### L IPASE, BMP, CBC, HEPATIC #### [place] [address] [place] GFR/1.73 sq M.predicted MDRD (S/P/Bld) [Vol rate/Area] mL/min/{1.73_m2} Normal [facility] Comment on above: Performed By: #### L IPASE, BMP, CBC, HEPATIC #### [address] Glucose [Mass/Vol] 166 mg/dL High 70-100 [facility] Comment on above: Result Comment: [facility] Glucose Reference Range is dependent on time and content of last meal. Glucose of more than 200 mg/dL in a nonstressed, ambulatory subject supports the diagnosis of Diabetes Mellitus. ADA recommended reference range Performed By: #### L IPASE, BMP, CBC, HEPATIC #### [address] Potassium [Moles/Vol] 3.7 mmol/L Normal 3.5-5.1 [facility] Comment on above: Performed By: #### L IPASE, BMP, CBC, HEPATIC #### [address] Sodium [Moles/Vol] 137 mmol/L Normal 136-145 [facility] Comment on above: Performed By: #### L IPASE, BMP, CBC, HEPATIC #### [address] Urea nitrogen [Mass/Vol] 19 mg/dL Normal 7-25 [facility] Comment on above: Performed By: #### L IPASE, BMP, CBC, HEPATIC #### [place] [address] [place] Basophils Auto (Bld) [#/Vol] Ordered By: Nicholas Valle on 08-21-2024 Basophils (Bld) [#/Vol] Automated basophil count 0.0-0.2 [facility] Basophils/100 WBC Auto (Bld) Ordered By: Nicholas Valle on 08-21-2024 Basophils/100 WBC (Bld) Automated basophil % . [facility] Bilirubin Test strip Ql (U)O rdered By: Nicholas Valle on 08-21-2024 Bilirubin Ql (U) Bilirubin.total [Pre sence] in Urine by Test strip Negative [facility] Bilirubin Ql (U) Negative Negative [facility] Bilirubin.direct [Mass/volum e] in Serum or PlasmaOrdered By: Nicholas Valle on 08-21-2024 Bilirubin.direct [Mass/Vol] Bilirubin.direct [Mass/volume] in Serum or Plasma 0.03-0.18 [facility] Bilirubin.direct [Mass/Vol] 0.10 mg/dL 0.03-0.18 [facility] Bilirubin.total [Mass/volume ] in Serum or PlasmaOrdered By: Nicholas Valle on 08-21-2024 Bilirubin [Mass/Vol] Bilirubin.total [Mass/volume] in Serum or Plasma 0.3-1.[address] [facility] [address] abdomen pelvis wo conon 0 08-21-2024 CT abdomen pelvis wo con [facility] [place] [address] CT Scan Report Signed Patient: Domo Piña MR#: [id number] : 1960 Acct:[id number] Age/Sex: 64 / M ADM Date: 08/21/24 Loc: Room: [address] [place] [address] Type: DIS IN Attending Dr: Enoc Zepeda DO Copies to: MD Enoc Hidalgo DO Ordering Provider: Nicholas Valle MD Date of Service: 08/21/24 CT/CT abdomen pelvis wo con: abdominal pain CT Abdomen and Pelvis withoutcontrast TECHNIQUE: Axial imaging with 2-D reconstruction. . The CT exam was performed using one or more the following dose reduction techniques: Automated exposure control, adjustment of the MA and/or Kv according to patient size, or use of the iterative reconstruction technique. COMPARISON: None History: Left groin hernia for 4 days. Right hernia repair LIMITATIONS: None LOWER THORAX Unremarkable LIVER: Unremarkable GALLBLADDER: No gallbladder abnormality identified. BILE DUCTS: No dilatation SPLEEN: Unremarkable PANCREAS: Unremarkable ADRENAL GLANDS: Unremarkable KIDNEYS:Unremarkable AORTA: No abdominal aortic aneurysm identified. RETROPERITONEUM: No significant retroperitoneal abnormalities identified. MESENTERY:Unremarkable SMALL BOWEL: The small bowel loops are nondistended. APPENDIX: The appendix is normal. COLON: At the junction of the descending and sigmoid colon there is a segment of bowel wall thickening present. Adjacent fatty peridiverticular stranding identified. Extensive descending and sigmoid colon diverticulosis. Collateral to the small bowel loops is collection of fluid and air extending lateral to the inguinal canal. Collection measures up to 2 cm. Additional possible communicating collection of fluid and air seen in subcutaneous tissues. This measures up to 16 mm. Mildly prominent adjacent lymph nodes present. URINARY BLADDER: Urinary bladder is unremarkable. REPRODUCTIVE SYSTEM: Reproductive structures are unremarkable. PNEUMOPERITONEUM: None PERITONEAL FLUID:None BONY STRUCTURES: Unremarkable ABDOMINAL WALL: Unremarkable CT/CT abdomen pelvis wo con IMPRESSION: Acute diverticulitis at the junction of the descending and sigmoid colon. Suspected up to 2 cm abscess lateral to the inflamed of bowel which extends into the lateral wall the lateral to the inguinal canal. No direct inguinal hernia. May consider follow-up endoscopic assessment after therapy.. Impression dictated by: Rohan Lazaro M.D. 08/21/2024 12:23 PM Dictation Location: [facility] Transcribed By: [facility] 08/21/24 1223 Dictated By: Rohan Lzaaro DO 08/21/24 1209 Signed By: 08/21/24 1223 Normal [facility] Calcium [Mass/volume] in Ser um or PlasmaOrdered By: Nicholas Valle on 08-21-2024 Calcium [Mass/Vol] Calcium [Mass/volume ] in Serum or Plasma 8.6-10.3 [facility] Carbon dioxide, total [Moles /volume] in Serum or PlasmaOrdered By: Nicholas Valle on 08-21-2024 CO2 [Moles/Vol] Carbon dioxide, tota l [Moles/volume] in Serum or Plasma 21.0-31.0 [facility] Chloride [Moles/volume] in S nicole or PlasmaOrdered By: Nicholas Valle on 08-21-2024 Chloride [Moles/Vol] Chloride [Moles/vol ume] in Serum or Plasma 98-107 [facility] Color Auto (U)Ordered By: Keya Valle on 08-21-2024 Color (U) Color of Urine by Auto Yellow [facility] Color of Urine by AutoOrdere d By: Nicholas Valle on 08-21-2024 Color (U) Yellow Normal Yellow [facility] Comment on above: Order Comment: Name Collection Type:: Clean-Voided Midstream Performed By: #### B MP, CBC #### [address] Complete Blood Count Auto Di ffon 08-21-2024 Basophils (Bld) [#/Vol] 0.1 10*3/uL Normal 0.0-0.2 [facility] Comment on above: Result Comment: PERF ORMED BY: [place] [address] PATHOLOGIST [employer] DRIVER CHARLES LOWE M.D. Performed By: #### L IPASE, BMP, CBC, HEPATIC #### [address] Basophils/100 WBC (Bld) 0.5 % Normal . T kirti [facility] Comment on above: Performed By: #### L IPASE, BMP, CBC, HEPATIC #### [place] [address] [place] Eosinophils (Bld) [#/Vol] 0.1 10*3/uL Normal 0.0-0.45 [facility] Comment on above: Performed By: #### L IPASE, BMP, CBC, HEPATIC #### [address] Eosinophils/100 WBC (Bld) 0.6 % Normal . [facility] Comment on above: Performed By: #### L IPASE, BMP, CBC, HEPATIC #### [address] Erythrocyte distribution width (RBC) [Ratio] 13.8 % Normal 12.0-14.8 [facility] Comment on above: Performed By: #### L IPASE, BMP, CBC, HEPATIC #### [address] Hematocrit (Bld) [Volume fraction] 40.4 % Normal 38.8-50.0 [facility] Comment on above: Performed By: #### L IPASE, BMP, CBC, HEPATIC #### [address] Hemoglobin (Bld) [Mass/Vol] 13.7 g/dL Normal 13.0-17.0 [facility] Comment on above: Performed By: #### L IPASE, BMP, CBC, HEPATIC #### [address] Lymphocytes (Bld) [#/Vol] 1.7 10*3/uL Normal 1.00-4.8 [facility] Comment on above: Performed By: #### L IPASE, BMP, CBC, HEPATIC #### [address] Lymphocytes/100 WBC (Bld) 10.6 % Normal . [facility] Comment on above: Performed By: #### L IPASE, BMP, CBC, HEPATIC #### [address] MCH (RBC) [Entitic mass] 29.0 pg Normal 27.5-35.2 [facility] [facility] Comment on above: Performed By: #### L IPASE, BMP, CBC, HEPATIC #### [address] MCV (RBC) [Entitic vol] 85.8 fL Normal 83.5-101 [facility] Comment on above: Performed By: #### L IPASE, BMP, CBC, HEPATIC #### [address] Mean Corpuscular HGB Conc 33.8 g/dL Normal 32.5-35.6 [facility] Comment on above: Performed By: #### L IPASE, BMP, CBC, HEPATIC #### [address] Monocytes (Bld) [#/Vol] 1.1 10*3/uL High 0.0-0.8 [facility] Comment on above: Performed By: #### L IPASE, BMP, CBC, HEPATIC #### [facility] [address] [place] [address] [place] Monocytes/100 WBC (Bld) 19.38 % Normal 0.00-20.00 [facility] Comment on above: Performed By: #### L IPASE, BMP, CBC, HEPATIC #### [facility] [address] [place] [address] [place] Monocytes/100 WBC (Bld) 6.8 % Normal . [facility] Comment on above: Performed By: #### L IPASE, BMP, CBC, HEPATIC #### [facility] [address] [place] [address] Neutrophils (Bld) [#/Vol] 13.1 10*3/uL High 1.8-7.7 [facility] Comment on above: Performed By: #### L IPASE, BMP, CBC, HEPATIC #### [facility] [address] Neutrophils/100 WBC (Bld) 81.5 % Normal . [facility] Comment on above: Performed By: #### L IPASE, BMP, CBC, HEPATIC #### [facility] [address] [place] [address] [place] NRBC% 0.0 /100{WBC} Normal 0-0.5 [facility] Comment on above: Performed By: #### L IPASE, BMP, CBC, HEPATIC #### [facility] [address] [place] [address] [place] Platelet mean volume (Bld) [Entitic vol] 8.5 fL Normal 6.6-10.1 [facility] Comment on above: Performed By: #### L IPASE, BMP, CBC, HEPATIC #### [facility] [address] [place] [address] [place] Platelets (Bld) [#/Vol] 275 10*3/uL Normal 150-450 [facility] Comment on above: Performed By: #### L IPASE, BMP, CBC, HEPATIC #### [facility] [address] [place] [address] [place] RBC (Bld) [#/Vol] 4.70 10*6/uL Normal 3.90-5.60 [facility] Comment on above: Performed By: #### L IPASE, BMP, CBC, HEPATIC #### [address] WBC (Bld) [#/Vol] 16.1 10*3/uL High 4.1-10.5 [facility] Comment on above: Performed By: #### L IPASE, BMP, CBC, HEPATIC #### [address] Creatinine [Mass/volume] in Serum or PlasmaOrdered By: Nicholas Valle on 08-21-2024 Creatinine [Mass/Vol] Creatinine [Mass/v olume] in Serum or Plasma 0.70-1.30 [facility] Dipstick and Microscopicon 0 08-21-2024 Bacteria,Urine None Seen Normal None Seen [facility] Comment on above: Order Comment: Name Collection Type:: Clean-Voided Midstream Performed By: #### B MP, CBC #### [address] Bilirubin,Urine Negative Normal Negative [facility] Comment on above: Order Comment: Name Collection Type:: Clean-Voided Midstream Performed By: #### B MP, CBC #### [address] Glucose Ql (U) Normal Normal Normal [facility] Comment on above: Order Comment: Name Collection Type:: Clean-Voided Midstream Performed By: #### B MP, CBC #### [address] Hyaline Casts,Urine None Normal 0-8 [facility] Comment on above: Order Comment: Name Collection Type:: Clean-Voided Midstream Performed By: #### B MP, CBC #### [address] Mucus,Urine Rare Normal [facility] Comment on above: Order Comment: Name Collection Type:: Clean-Voided Midstream Result Comment: PERF ORMED BY: [place] [address] PATHOLOGIST [employer] CHARLES LOWE M.D. Performed By: #### B MP, CBC #### [place] [address] [place] Nitrite,Urine Negative Normal Negative [facility] Comment on above: Order Comment: Name Collection Type:: Clean-Voided Midstream Performed By: #### B MP, CBC #### [address] Occult Blood,Urine Negative Normal Negative [facility] Comment on above: Order Comment: Name Collection Type:: Clean-Voided Midstream Result Comment: PERF ORMED BY: [place] [address] PATHOLOGIST [employer] CHARLES LOWE M.D. Performed By: #### B MP, CBC #### [address] RBC,Urine 3-4 Normal 0-4 [facility] Comment on above: Order Comment: Name Collection Type:: Clean-Voided Midstream Performed By: #### B MP, CBC #### [place] [address] [place] Specificy [place],Urine 1.041 High 1.00 1-1.03 0 [facility] Comment on above: Order Comment: Name Collection Type:: Clean-Voided Midstream Performed By: #### B MP, CBC #### [place] [address] [place] Squamous Epithelial Cell,Urine 1-2 Normal 0-2 [facility] Comment on above: Order Comment: Name Collection Type:: Clean-Voided Midstream Performed By: #### B MP, CBC #### [place] [address] [place] Urobilinogen,Urine Normal Normal Normal [facility] Comment on above: Order Comment: Name Collection Type:: Clean-Voided Midstream Performed By: #### B MP, CBC #### [place] [address] [place] WBC,Urine 3-4 Normal 0-4 [facility] Comment on above: Order Comment: Name Collection Type:: Clean-Voided Midstream Performed By: #### B MP, CBC #### [facility] [address] Eosinophils Auto (Bld) [#/Vo l]Ordered By: Nicholas Valle on 08-21-2024 Eosinophils (Bld) [#/Vol] Automated eosinophil count 0.0-0.45 [facility] Eosinophils/100 WBC Auto (Bl d)Ordered By: Nicholas Valle on 08-21-2024 Eosinophils/100 WBC (Bld) Automated eosinophil % . [facility] Epithelial cells.squamous [# /area] in Urine sediment by Automated countOrdered By: Nicholas Valle on 08-21-2024 Epithelial cells.squamous Auto (Urine sed) [#/Area] Epithelial cells.squamous [#/area] in Urine sediment by Automated count 0-2 [facility] Epithelial cells.squamous Auto (Urine sed) [#/Area] 1-2 [HPF] 0-2 [facility] Erythrocyte distribution wid th Auto (RBC) [Ratio]Ordered By: Nicholas Valle on 08-21-2024 Erythrocyte distribution width (RBC) [Ratio] Erythrocyte distribution width [Ratio] by Automated count 12.0-14.8 [facility] Erythrocytes [#/area] in Uri ne sediment by Automated countOrdered By: Nicholas Valle on 08-21-2024 RBC Auto (Urine sed) [#/Area] Erythrocytes [#/area] in Urine sediment by Automated count 0-4 [facility] RBC Auto (Urine sed) [#/Area] 3-4 [HPF] 0-4 [facility] Globulin Calc (S) [Mass/Vol] Ordered By: Nicholas Valle on 08-21-2024 Globulin (S) [Mass/Vol] Serum globulin m easurement by calculation (mass/volume) [facility] Glucose [Mass/volume] in Ser um or PlasmaOrdered By: Nicholas Valle on 08-21-2024 Glucose [Mass/Vol] Glucose [Mass/volume ] in Serum or Plasma High 70-100 [facility] Comment on above: ADA recommended refe rence rangeRandom Glucose Reference Range is dependent on time and content of last meal. Glucose of more than 200 mg/dL in a nonstressed, ambulatory subject supports the diagnosis of Diabetes Mellitus. Glucose [Mass/volume] in Uri ne by Test stripOrdered By: Nicholas Valle on 08-21-2024 Glucose Test strip (U) [Mass/Vol] Glucose [Mass/volume] in Urine by Test strip Normal [facility] Glucose Test strip (U) [Mass/Vol] Normal mg/dL Normal [facility] Hematocrit Auto (Bld) [Volum e fraction]Ordered By: Nicholas Valle on 08-21-2024 Hematocrit (Bld) [Volume fraction] Hematocrit [Volume Fraction] of Blood by Automated count 38.8-50.0 [facility] Hemoglobin Test strip Ql (U) Ordered By: Nicholas Valle on 08-21-2024 Hemoglobin Ql (U) Hemoglobin [Presence ] in Urine by Test strip Negative [facility] Hemoglobin Ql (U) Negative Negative [facility] Hemoglobin [Mass/volume] in BloodOrdered By: Nicholas Valle on 08-21-2024 Hemoglobin (Bld) [Mass/Vol] Hemoglobin [Mass/volume] in Blood 13.0-17.0 [facility] Hepatic Panelon 08-21-2024 Albumin [Mass/Vol] 4.0 g/dL Normal 3.5-5.7 [facility] Comment on above: Performed By: #### L IPASE, BMP, CBC, HEPATIC #### [address] Albumin/Globulin [Mass ratio] 1.1 {ratio} Normal [facility] Comment on above: Performed By: #### L IPASE, BMP, CBC, HEPATIC #### [facility] [address] ALP [Catalytic activity/Vol] 87 U/L Normal 34-104 [facility] Comment on above: Performed By: #### L IPASE, BMP, CBC, HEPATIC #### [facility] [address] ALT [Catalytic activity/Vol] 19 U/L Normal 7-52 [facility] Comment on above: Performed By: #### L IPASE, BMP, CBC, HEPATIC #### [facility] [address] [place] [address] [place] AST [Catalytic activity/Vol] 16 U/L Normal 13-39 [facility] Comment on above: Performed By: #### L IPASE, BMP, CBC, HEPATIC #### [address] Bilirubin [Mass/Vol] 0.4 mg/dL Normal 0.3-1.0 [facility] Comment on above: Performed By: #### L IPASE, BMP, CBC, HEPATIC #### [address] Bilirubin,Indirect 0.3 mg/dL Normal [facility] Comment on above: Performed By: #### L IPASE, BMP, CBC, HEPATIC #### [address] Bilirubin.indirect [Mass/Vol] 0.10 mg/dL Normal 0.03-0.18 [facility] Comment on above: Performed By: #### L IPASE, BMP, CBC, HEPATIC #### [address] Globulin (S) [Mass/Vol] 3.6 g/dL Normal [facility] Comment on above: Performed By: #### L IPASE, BMP, CBC, HEPATIC #### [address] Protein [Mass/Vol] 7.6 g/dL Normal 6.4-8.9 [facility] Comment on above: Performed By: #### L IPASE, BMP, CBC, HEPATIC #### [address] Hyaline casts [#/area] in Ur ine sediment by Automated countOrdered By: Nicholas Valle on 08-21-2024 Hyaline casts Auto (Urine sed) [#/Area] Hyaline casts [#/area] in Urine sediment by Automated count 0-8 [facility] Hyaline casts Auto (Urine sed) [#/Area] None [LPF] 0-8 [facility] Ketones Test strip Ql (U)Ord ered By: Nicholas Valle on 08-21-2024 Ketones Ql (U) Ketones [Presence] i n Urine by Test strip High Negative [facility] Ketones [Presence] in Urine by Test stripOrdered By: Nicholas Valle on 08-21-2024 Ketones Ql (U) Trace High Negative [facility] Comment on above: Order Comment: Name Collection Type:: Clean-Voided Midstream Performed By: #### B MP, CBC #### [facility] [address] Leukocyte esterase [Presence ] in Urine by Test stripOrdered By: Nicholas Valle on 08-21-2024 Leukocyte esterase Test strip Ql (U) Leukocyte esterase [Presence] in Urine by Test strip Negative [facility] Leukocyte esterase Test strip Ql (U) Negative Normal Negative [facility] Comment on above: Order Comment: Name Collection Type:: Clean-Voided Midstream Performed By: #### B MP, CBC #### [facility] [address] [place] [address] [place] Leukocytes [#/area] in Urine sediment by Automated countOrdered By: Nicholas Valle on 08-21-2024 WBC Auto (Urine sed) [#/Area] Leukocytes [#/area] in Urine sediment by Automated count 0-4 [facility] WBC Auto (Urine sed) [#/Area] 3-4 [HPF] 0-4 [facility] Leukocytes [#/volume] correc madi for nucleated erythrocytes in Blood by Automated counOrdered By: Nicholas Valle on 08-21-2024 WBC corrected for nucl RBC Auto (Bld) [#/Vol] Leukocytes [#/volume] corrected for nucleated erythrocytes in Blood by Automated coun High 4.1-10.5 [facility] Lipase [Enzymatic activity/v olume] in Serum or PlasmaOrdered By: Nicholas Valle on 08-21-2024 Lipase [Catalytic activity/Vol] Lipase [Enzymatic activity/volume] in Serum or Plasma 11.0-82.0 [facility] Lipase [Catalytic activity/Vol] 16.0 U/L Normal 11.0-82.0 [facility] Comment on above: Result Comment: PERF ORMED BY: [facility] [address] [place] [address] PATHOLOGIST [employer] CHARLES LOWE M.D. Performed By: #### L IPASE, BMP, CBC, HEPATIC #### [facility] [address] Lymphocytes Auto (Bld) [#/Vo l]Ordered By: Nicholas Valle on 08-21-2024 Lymphocytes (Bld) [#/Vol] Lymphocytes [#/volume] in Blood by Automated count 1.00-4.8 [facility] Lymphocytes/100 WBC Auto (Bl d)Ordered By: Nicholas Valle on 08-21-2024 Lymphocytes/100 WBC (Bld) Lymphocytes/100 leukocytes in Blood by Automated count . [facility] MCH Auto (RBC) [Entitic mass ]Ordered By: Nicholas Valle on 08-21-2024 MCH (RBC) [Entitic mass] MCH [Entitic mass] by Automated count 27.5-35.2 [facility] MCHC Auto (RBC) [Mass/Vol]Or dered By: Nicholas Valle on 08-21-2024 MCHC (RBC) [Mass/Vol] MCHC [Mass/volume] by Automated count 32.5-35.6 [facility] MCV Auto (RBC) [Entitic vol] Ordered By: Nicholas Valle on 08-21-2024 MCV (RBC) [Entitic vol] MCV [Entitic vol ume] by Automated count 83.5-101 [facility] Monocyte distribution width [Entitic volume] in Blood by AutomatedOrdered By: Nicholas Valle on 08-21-2024 Monocyte distribution width Auto (Bld) [Entitic vol] Monocyte distribution width [Entitic volume] in Blood by Automated 0.00-20.00 [facility] Monocyte distribution width Auto (Bld) [Entitic vol] 19.38 % 0.00-20.00 [facility] Monocytes Auto (Bld) [#/Vol] Ordered By: Nicholas Valle on 08-21-2024 Monocytes (Bld) [#/Vol] Automated blood monocyte count High 0.0-0.8 [facility] Monocytes/100 WBC Auto (Bld) Ordered By: Nicholas Valle on 08-21-2024 Monocytes/100 WBC (Bld) Automated monocyte % . [facility] Mucus [Presence] in Urine by AutomatedOrdered By: Nicholas Valle on 08-21-2024 Mucus Auto Ql (U) Mucus [Presence] in Urine by Automated [facility] Mucus Auto Ql (U) Rare [LPF] [facility] Neutrophils Auto (Bld) [#/Vo l]Ordered By: Nicholas Valle on 08-21-2024 Neutrophils (Bld) [#/Vol] Neutrophils [#/volume] in Blood by Automated count High 1.8-7.7 [facility] Neutrophils/100 WBC Auto (Bl d)Ordered By: Nicholas Valle on 08-21-2024 Neutrophils/100 WBC (Bld) Automated neutrophil % . [facility] Nitrite Test strip Ql (U)Ord ered By: Nicholas Valle on 08-21-2024 Nitrite Ql (U) Nitrite [Presence] i n Urine by Test strip Negative [facility] Nitrite Ql (U) Negative Negative [facility] No Panel InformationOrdered By: Nicholas Valle on 08-21-2024 Estimated GFR (CKD-EPI) > 60.0 mL/Min [facility] Creatinine Clearance (Chem 83.07 [facility] Nucleated erythrocytes [Pres ence] in Blood by Automated countOrdered By: Nicholas Valle on 08-21-2024 Nucleated RBC Auto Ql (Bld) Nucleated erythrocytes [Presence] in Blood by Automated count 0-0.5 [facility] Platelet mean volume Auto (B ld) [Entitic vol]Ordered By: Nicholas Valle on 08-21-2024 Platelet mean volume (Bld) [Entitic vol] Platelet mean volume [Entitic volume] in Blood by Automated count 6.6-10.1 [facility] Platelets Auto (Bld) [#/Vol] Ordered By: Nicholas Valle on 08-21-2024 Platelets (Bld) [#/Vol] Platelets [#/vol ume] in Blood by Automated count 150-450 [facility] Potassium [Moles/volume] in Serum or PlasmaOrdered By: Nicholas Valle on 08-21-2024 Potassium [Moles/Vol] Potassium [Moles/v olume] in Serum or Plasma 3.5-5.1 [facility] Protein Test strip (U) [Mass /Vol]Ordered By: Nicholas Valle on 08-21-2024 Protein (U) [Mass/Vol] Protein [Mass/vol ume] in Urine by Test strip High Negative [facility] Protein [Mass/volume] in Ser um or PlasmaOrdered By: Nicholas Valle on 08-21-2024 Protein [Mass/Vol] Protein [Mass/volume ] in Serum or Plasma 6.4-8.9 [facility] Protein [Mass/volume] in Uri ne by Test stripOrdered By: Nicholas Valle on 08-21-2024 Protein (U) [Mass/Vol] 20 mg/dL High Negative [facility] Comment on above: Order Comment: Name Collection Type:: Clean-Voided Midstream Performed By: #### B MP, CBC #### [facility] [address] RBC Auto (Bld) [#/Vol]Ordere d By: Nicholas Valle on 08-21-2024 RBC (Bld) [#/Vol] Erythrocytes [#/volu me] in Blood by Automated count 3.90-5.60 [facility] Serum or plasma albumin/glob ulin mass ratioOrdered By: Nicholas Valle on 08-21-2024 Albumin/Globulin [Mass ratio] Serum or plasma albumin/globulin mass ratio [facility] Serum or plasma anion gap de terminationOrdered By: Nicholas Valle on 08-21-2024 Anion gap [Moles/Vol] Serum or plasma an ion gap determination 6.0-15.0 [facility] Serum or plasma non-glucuron idated bilirubin measurement (mass/volume)Ordered By: Nicholas Valle on 08-21-2024 Bilirubin.indirect [Mass/Vol] Serum or plasma non-glucuronidated bilirubin measurement (mass/volume) [facility] Bilirubin.indirect [Mass/Vol] 0.3 mg/dL [facility] Sodium [Moles/volume] in Ser um or PlasmaOrdered By: Nicholas Valle on 08-21-2024 Sodium [Moles/Vol] Sodium [Moles/volume ] in Serum or Plasma 136-145 [facility] Specific gravity Test strip (U) [Rel density]Ordered By: Nicholas Valle on 08-21-2024 Specific gravity (U) [Rel density] Specific gravity of Urine by Test strip High 1.001-1.03 0 [facility] Specific gravity (U) [Rel density] 1.041 High 1.001-1.03 0 [facility] Urea nitrogen [Mass/volume] in Serum or PlasmaOrdered By: Nicholas Valle on 08-21-2024 Urea nitrogen [Mass/Vol] Urea nitrogen [Mass/volume] in Serum or Plasma 7 [facility] Urobilinogen Test strip (U) [Mass/Vol]Ordered By: Nicholas Valle on 08-21-2024 Urobilinogen (U) [Mass/Vol] Urobilinogen [Mass/volume] in Urine by Test strip Normal [facility] Urobilinogen (U) [Mass/Vol] Normal mg/dL Normal [facility] WBC Auto (Bld) [#/Vol]Ordere d By: Nicholas Valle on 08-21-2024 WBC (Bld) [#/Vol] Leukocytes [#/volume ] in Blood by Automated count High 4.1-10.5 [facility] pH Test strip (U)Ordered By: Nicholas Valle on 08-21-2024 pH (U) pH of Urine by Test strip 5.0-9.0 [facility] pH of Urine by Test stripOrd ered By: Nicholas Valle on 08-21-2024 pH (U) 7.0 [pH] Normal 5.0-9.0 [facility] Comment on above: Order Comment: Name Collection Type:: Clean-Voided Midstream Performed By: #### B MP, CBC #### [address] Office Visiton 08-01-2024 Follow-up visit [id number] Domo Piña 1960 M [facility] Provider Department Center 08/01/2024 NORMA BARTON SHOAIB [facility] Family History Problem Relation Age of Onset COPD Mother Heart attack Father Coronary artery disease Father Other Father Family Status - Relation Status Age at Mother Father Sister Alive Level of Service:41248 CT OFFICE/OUTPATIENT ESTABLISHED MOD MDM 30 MIN Normal [facility] Office Visiton 03-03-2024 Follow-up visit [id number] Domo Piña 1960 M Date Provider Department Center 03/03/2024 YAEL PATTERSON SHOAIB [facility] Family History Problem Relation Age of Onset Heart attack Father Coronary artery disease Father Other Father Family Status - Relation Status Age at Father Level of Service:10176 CT OFFICE/OUTPATIENT ESTABLISHED MOD MDM 30 MIN Normal [facility] Office Visiton 09-07-2023 Follow-up visit [id number] Domo Piña 1960 M Date Provider Department Center 09/07/2023 [id number] OSORIO SHOAIB [facility] Family History Problem Relation Age of Onset Heart attack Father Coronary artery disease Father Other Father Family Status - Relation Status Age at Father Level of Service:45441 CT OFFICE/OUTPATIENT ESTABLISHED MOD MDM 30 MIN Normal [facility] Orders Onlyon 08-12-2023 Orders Only [id number] Domo Piña 1960 M [facility] Provider Department Center 08/12/2023 [id number], HISTORICAL PIERRE [facility] Family History Problem Relation Age of Onset Heart attack Father Coronary artery disease Father Other Father Family Status - Relation Status Age at Father Normal [facility] Provider Letteron 03-27-2023 Provider Letter (Inserted Image. Jackie ble to display) March 27, 2023 DOMO AYANA [address] [place] [address] : 1960 Dear Domo, We have been trying to reach you with no success. It is important that you return our call regarding need for colonoscopy upon receiving this letter. Also, at the time of your call, please provide us with your current information. Thank you for your prompt attention to this matter. Sincerely, Dr. Bill Corcoran MD [facility] [place] Provider Letter (Inserted Image. Jackie ble to display) March 27, 2023 DOMO PIÑA [address] [place] [address] : 1960 Dear Domo, We have been trying to reach you with no success. It is important that you return our call upon receiving this letter. Also, at the time of your call, please provide us with your current information. Thank you for your prompt attention to this matter. Sincerely, Dr. Bill Corcoran MD [facility] [place] Reminderson 01-05-2024 Reminders - From: Daisy Gutierrez LPN To: [facility] - Clinical; Sent: 04/21/2022 08:22:58 EST Show up: 03/18/2023 07:00:00 EST Subject: colonoscopy recall Due Date/Time: 04/18/2023 07:00:00 EST Reminder/Recall Patient is due for colonoscopy 04/18/2023 due to incomplete colonoscopy completed 04/18/2022 due to sharp bend of colon. Mailbox is full. Will call again at later time. Mailbox is full. Will call again at later time. Letter mailed. Normal [facility] Postoperative Documentson Postoperative Documents [id number]:127 Normal [facility] IntraOperative Documentson 0 04-23-2022 IntraOperative Documents [id number]:127 Normal [facility] CBC AUTO DIFFon 04-22-2022 BASO # 0.1 103/ul Normal 0.0-0.1 [facility] Comment on above: Performed By: #### C BC #### [facility] [address] [place] [address] Dr. Luisana Ramachandran Basophils/100 WBC (Bld) 1.0 % Normal 0.2-2.0 [facility] Comment on above: Performed By: #### C BC #### [facility] [address] [place] [address] Dr. Luisana Ramachandran EO # 0.3 103/ul Normal 0.0-0.7 [facility] Comment on above: Performed By: #### C BC #### [facility] [address] [place] [address] Dr. Luisana Ramachandran Eosinophils/100 WBC (Bld) 3.0 % Normal 0.9-7.0 [facility] Comment on above: Performed By: #### C BC #### [facility] [address] [place] [address] Dr. Luisana Ramachandran Erythrocyte distribution width (RBC) [Ratio] 13.1 % Normal 11.0-15.0 [facility] Comment on above: Performed By: #### C BC #### [facility] [address] [place] [address] Dr. Luisana Ramachandran Hematocrit (Bld) [Volume fraction] 43.7 % Normal 42.0-54.0 [facility] Comment on above: Performed By: #### C BC #### [facility] [address] [place] [address] Dr. Luisana Ramachandran Hemoglobin (Bld) [Mass/Vol] 14.5 g/dL Normal 14.0-18.0 [facility] Comment on above: Performed By: #### C BC #### [facility] [address] [place] [address] Dr. Luisana Ramachandran IG # 0.02 10e3/ul Normal 0.00-0.03 [facility] Comment on above: Performed By: #### C BC #### [facility] [address] [place] [address] Dr. Luisana Ramachandran IG % 0.2 % Normal 0.0-0.5 [facility] Comment on above: Performed By: #### C BC #### [facility] [address] [place] [address] Dr. Luisana Ramachandran LYMPH # 2.9 103/ul Normal 1.2-3.8 [facility] Comment on above: Performed By: #### C BC #### [facility] [address] [place] [address] Dr. Luisana Ramachandran Lymphocytes/100 WBC (Bld) 29.8 % Normal 20.5-60.0 [facility] Comment on above: Performed By: #### C BC #### [facility] [address] [place] [address] Dr. Luisana Ramachandran MANUAL DIFF REQ NO Normal [facility] Comment on above: Performed By: #### C BC #### [facility] [address] [place] [address] Dr. Luisana Ramachandran MCH (RBC) [Entitic mass] 29.6 pg Normal 25.9-34.0 [facility] Comment on above: Performed By: #### C BC #### [facility] [address] [address] [address] Luisana Ramachandran MCHC (RBC) [Mass/Vol] 33.2 g/dL Normal 29.9-35.2 [facility] Comment on above: Performed By: #### C BC #### [facility] [address] [address] [address] Luisana Ramachandran MCV (RBC) [Entitic vol] 89.2 fL Normal 80.0-94.0 [facility] Comment on above: Performed By: #### C BC #### [facility] [address] [address] [address] Luisana Ramachandran MONO # 1.1 103/ul Critically high 0.3-0.8 [facility] Comment on above: Performed By: #### C BC #### [facility] [address] [place] [address] Dr. Luisana Ramachandran Monocytes/100 WBC (Bld) 10.9 % Normal 1.7-12.0 [facility] Comment on above: Performed By: #### C BC #### [facility] [address] [place] [address] Dr. Luisana Ramachandran NEUT # 5.4 103/ul Normal 1.4-6.5 [facility] Comment on above: Performed By: #### C BC #### [facility] [address] [place] [address] Dr. Luisana Ramachandran Neutrophils/100 WBC (Bld) 55.1 % Normal 43.0-75.0 [facility] Comment on above: Performed By: #### C BC #### [facility] [address] [address] [address] Luisana Ramachandran Platelet mean volume (Bld) [Entitic vol] 10.8 fL Normal 9.5-13.5 [facility] Comment on above: Performed By: #### C BC #### [facility] [address] [place] [address] Dr. Luisana Ramachandran PLT 240 103/ul Normal 150-450 [facility] Comment on above: Performed By: #### C BC #### [facility] [address] [place] [address] Dr. Luisana Ramachandran RBC 4.90 106/ul Normal 4.70-6.10 [facility] Comment on above: Performed By: #### C BC #### [facility] [address] [place] [address] Dr. Luisana Ramachandran WBC 9.8 103/ul Normal 4.0-11.0 [facility] Comment on above: Performed By: #### C BC #### [facility] [address] [place] [address] Dr. Luisana Ramachandran PROF CHEM 8 (BAS METB)on Anion gap [Moles/Vol] 11.1 mmol/L Normal [facility] Comment on above: Performed By: #### B MP #### [facility] [address] [place] [address] Dr. Luisana Ramachandran Calcium [Mass/Vol] 9.3 mg/dL Normal 8.5-10.1 [facility] Comment on above: Performed By: #### B MP #### [facility] [address] [place] [address] Dr. Luisana Ramachandran Chloride [Moles/Vol] 100 mmol/L Normal 98-107 [facility] Comment on above: Performed By: #### B MP #### [facility] [address] [place] [address] Dr. Luisana Ramacahndran CO2 [Moles/Vol] 31.9 mmol/L Normal 21.0-32.0 [facility] Comment on above: Performed By: #### B MP #### [facility] [address] [place] [address] Dr. Luisana Ramachandran Creatinine [Mass/Vol] 0.80 mg/dL Normal 0.70-1.30 [facility] Comment on above: Performed By: #### B MP #### [facility] [address] [place] [address] Dr. Luisana Ramachandran EGFR-AF SIERRA LEONEAN >60 Normal >=60 [facility] Comment on above: Performed By: #### B MP #### [facility] [address] [address] [address] Luisana Ramachandran EGFR-NON AF SIERRA LEONEAN >60 Normal >=60 [facility] Comment on above: Performed By: #### B MP #### [facility] [address] [address] [address] Luisana Ramachandran Glucose [Mass/Vol] 106 mg/dL Normal 74-106 [facility] Comment on above: Performed By: #### B MP #### [facility] [address] [address] [address] Luisana Ramachandran Potassium [Moles/Vol] 4.0 mmol/L Normal 3.5-5.1 [facility] Comment on above: Performed By: #### B MP #### [facility] [address] [address] [address] Luisana Ramachandran Sodium [Moles/Vol] 139 mmol/L Normal 136-145 [facility] Comment on above: Performed By: #### B MP #### [facility] [address] [address] [address] Luisana Ramachandran Urea nitrogen [Mass/Vol] 11.0 mg/dL Normal 7.0-18.0 [facility] Comment on above: Performed By: #### B MP #### [facility] [address] [address] [address] Luisana Ramachandran Urea nitrogen/Creatinine [Mass ratio] 13.8 mg/mg Normal [facility] Comment on above: Performed By: #### B MP #### [facility] [address] [address] [address] Luisana Ramachandran Coding Summary.on 04-21-2022 Coding Summary. [id number] Gh0bWw +PGhlYWQ+TV9IKJDfV94hwROes T1DQ7zOKF6CNVEAUGGHPY5IXD2 vlIO9ZEgvE7QxwwJi KsyvhUAuHN79NPh2EZU1zFirIQ eheD2ksVQrI1t6RrPxCS96aS77 IBwyZDVwNeX1MeBruncvpQRm W8ojRaEpyDGvUsx+PHRhYmxlIH bwLEJpUFjySVUoTyYuwRigLV8n Oq5bYUIaCIBgtIxaeQZwZsWs l0wvSGScRPqeMF2jyVuhO3WnfT Z6IVThq0n9Qb90wCO+PHRkIHN0 wMluBEyos599PbTwg2pgJBS9 hVHoWYbjGUB8U85nm8E5TOFaQN IpTWB2qEU6zR8mrLfkbxroN5Gr vLGbSvG6ABV2hKCwkM1vpEmi urgbgL4pVhd+M66CMU3MXCXRHC 1FAjy6E1GaQuppcVL+EJ34UAVx HG23fQKujERgp6ojyPk1PvEk OGTdWAQ9vVcxXDgsd0DzFRLsY7 4vfWNab9N7ZYIdzSiibTNdOiBc vGW6pZ5cONjkbuott5duponw Afktb4wian63bF71Y20nAXgzNH VfIES6KLAzJNCpcVrmec1ztI5h Ii8+BPlwl7pmy0iotAz4BeMs RFPmuiSfwGkgKRT7m0XvRr13W9 KbrYica2LsWxe6jj55uPHdu6U1 yEB5VVtiNBKasU0nYBpvWiK4 FPSiQzRicM00gLOlQUlpBf6fxZ uafUseNM2eCZQxqsbhHMJpaV4s IAYmlDCgoRouCU9dPUVicrrm s146WnZeSCD2SRPdrJAeP7FgjC 6hKxNiDQFuQTAhH7FecHGxRBmu I180QOfbNwJ3TIFplfGkV7Iv IPKzdZjbZsJ3e5F8He9Mn9Ibtq fqUUT1RYciDYFkEgLlCmUaWvD4 M9GbXcs2JDVeoQccOM4fW2Ba PYEuffcxkxxppGB0ADUeVHCotO 69lPQdPRvgAu0zj7V1d988REJo SIFphR50Nt7heWgwRIMokPJA nK3rquoko0vhroofAjKmCYCuGV t6MXr7KMOiaQvzTcEzLWR2PoV5 FIQ5hTGjiG2qwMcuhzgfxA3t Oyc+E52yvC2mAQO5HZB8hcyrSK VuelNqNC69SQ75P6QsDmjtyLMo bGU+VRZoazScpGufVZ1xZtTu p1qpg2UkDPvyG4JuERNtRPctXq c8TEWyTCV3xCL8tL8xEPOiMKim f3A5qON6N4YcpkWjdw2go3xl YHKwEAldE46qyNNpj6N7RPWmlX G4NNAnhYglFqPhlG36Vay+PGNv aLfbd7DkThetu5znp4vjvEy2 HoPrMMJdmpCteScdSCJ5d2NiEn 20N37hZWbyWMNtMELgOGMgTOVw vFrwna6tbY0nIr1+PGNvbCB3 fCD3fR4aMNPhMfF8VFwmU651Ns BpnQVjPtvsm5emk0yzoKf4DjYw TIMrtwDvwDvgZCW7g6ZyQd60 H63xQXpdRZCfZXTjFUAhBIDksS payf1azH2zUs5+GB4oo1dwjo57 sS94eHU+RGIlMZO3iMiaYQpg KSDlxI2aWFciDyO2ZQKqEhNugB 79eSEqNZagTx6eqLdzaAcfTI1d RNYgtdtxg611NjDhj9ksMTGu uEQdHIgrGOU6S86sc5K4GSAhUN IqLRZ9lEB1qU3ewEoueemwlCHm pJuoyrAmxYleTPhuKSyiL434 IHRvcDsnPlBhdGllbnQgTmFtZT e9B6MyOua0JEYvyRkeMV9jnEGs LVdtLc9elSjxgQonAS7uHTZe cfryn340EfQxm8jdTZVrvAYuIH mqBDM2I49uz5B4EGXaSRDbTXO2 oER9iA6qyEfvtzkrjPSzjPwt ihYfeVxhMUitXDzbR890FOCvoR mpTeAuksDjZWTyaPD1TZ25AU27 aJAve5C3wPQ9T3CcYWRgotzp daslgDC4MTPcLXMswI20Yp6ygJ xcAs0hAKCmWXE2SBFwxZByJ5Nk pV1tIlBeARDgTBAaO9PvdRBy CElzD797TXnrObG0XSZtjwEfS8 BtFELtgCvmGzR1a3F1Fz0KA1Z4 GK97VQ94bTMpg3O5lGK0Q0Zb XQCqefnoupxocJN1JSKmUJFqeH 96Xq7kmKhcCa1mZNNsWGC6OELo cYGcM1AkuS7cUsAoEQMvGPOs J2TpiMSlDTraG203NJzcDgS6EU DpbzGbV8CbUAIgjTmiHxJ3t7C2 Cn5LWTp3GH92RK70pWDqe6P2 vDE1U0XgYCFgcvwrshuafLT5WS QxBAMlmB06Ln9nvOusWd8tUJCb ZSV3BBZsuHVsH4TooY3qZtFk AGRkSXMlE2CqzKMwFDreW374SY qjGxU7UZKxjpIrP2QsAJAdiHax FcH9w6I2Cu0DDILyNQ62GNW3 zYE1VZ31GW60L2TbKgkzpKCqgW U+PHRhYmxlIHdpZHRoPScxMDAl ZuCnqNfmUJ0xBh5uFOEpVGOc fYtetBQvRtPfx5ajSOFdYQaxAA 5zcDwnN0PqnJB2AAIlu8c9Gm71 X15cM5FywFH+LSPoeCU1uLB4 lU9sZiSpInP0BHmvE256QcQaqV IsIztmf7tbi1bjaWg3IxL2CBCu obAaxLzmGXZ3b4YbOw14E43f IHdpZHRoPSIxNSUiIHZhbGlnbj 0adG8mIi9+YXSjwOD0mXH4nA0s IlJkEwJ7TAggV176SkZnlJRp Aenpy8nzp0wpwKn4WzBrTTOuqr TdvGohYJZ2j6RwAa68U6HwmVok e8UhCpi2ro58zRZtd7H9iCW5 W9SkCQNchaxtxGHifSekSV6hGP FwcctxFLInpD8wFBLcT0k3QiQo QeQ7GSjlC8TjuxG8ZAMdeEKn OFnzBRQ8H88ju1N8JFXjDWAjCE Y5yKL1dC0duNvlfxtrrZJavAao pnSvvTraVSclWWxwC961VVNa qOeqCKYvoL6rFVSdwYUjnRsfVX 4wNTBpbjsnPkJMQUNLQlVSTiwg Ll3MXJNTGZk5N9HkUtv2QAXp wWsaJW2qbSOjSZcuOe0zaIwxdI rpKP1bGOKualwkGRIgaM5bZYWf iGUvpKsoME4kQXEmfjrvb000 TmIuJHQ7GVWuoSOpC1DpkN5sPf PcDAPmEUXjA2WejMTkAAgtQ724 AWbyZjY4XPStgcSlF3JmLASc nDmiAzS8s1F3Cm5cHH5kLM0aIE YdDO24PK28xAOaz0L3eSJ0A8Fg MLUfddqcrvuarZX8INNcRAOk wD40iQVhTLpkUh6ze3N0r069JA FjDSTsqH86Ea6umKzuSNHbuUFJ lY9wbovfo1ynmajkXoYjQVNh MKh0KMz1YEXzrGfyHtMqZTX2Pc G9JNZ9nQYssZ8taQryfzvenP0k Oyc+BmDyPLLyahE0H7XzJld2 WYZryNaxAJ6hiTYmNFdkGi1mmW kysHlzFJ2zGNNtqfmjIUFcaC0r TCDleIDfbHasXL9sTOWttjxb f311VxOrBET4EHAeeBMrD9SxhJ 1sFmQdFWEeXVHgK1BxnIXfCKug C026VYggNoD6JYOudrVfT0Sd QPKneFvqAcW3t3E7Ar4EKYugOV 95SP99hWIal3G0uLF6F9WiGGZm lkemkpormMC8RQXjTKVtyU46 lBDrUAsrDq0wk6Q5q283IWWlDH CivX91Cq0xgTyvFQOdwQTPeZ5m bfwcp9uslhfsYpHyHIXuGVw2 TIa2LYCrfUyiDzOmCOS3HvM9ED Q7iYJreG5chBjshbjjsY3eSdp+ Y9I1rFC9nTYvwInahHE+PC90 bg32E8RvFcykSwb2NFYgISS0oE F7uZ0jCYYfUFkqf6O6gKO1N5Nv zkJhgp7hj2bkXARbYDinW05o eSIgj1F8EIWygTZ8YQCvjVxgSf ZlfQ57Hvb+QGSluNhhv1DdBpqw q6oqy6bwsAi0QzKoADEpytUk xVweRLX4l1PeWe23F71aDQqeNS QsWAGoNZVrGALmqKxttm7yeJ5h Ii8+JLFzcTK4uOG3nS6kEbWd InP6EYcaN794JsLgiWLwLrdwj4 wrp4uzsFl7EkXqMHKfzhLssQao QFZ9d0ZjCp63E1IbiBzhp9Av Reg6qw35sMFir6I4kNU6O0LzLC UnykdxmGOyvAboLC5wSCIecums VTTmlB9xTROmC1t8BbPmRjV2 GCkaM6XiciY2OGKtdZYkYTJowJ YVvU7evsslk2lxupzdYgAvYYPs TSh3ZHv2JGVzsVdmWcVaRDO9 LrE5EHQ9vSRcwJ4sfTzxxehorX 9wOyc+ASb3t1bmgTReRZ3adLW8 DN78NT92xNFxa7I0xII0M3Gn MBYajmgsezvlpUB1KYHvBTXxsH 43Ik1ogDjtRn7pMIPiCLJ4USYe jDRvY8EugC2dYjRlDCNbIOBe O1RuhFKoKKigB341LTtvKlO0VX KefbGbL2ExEHRhnXlaBiA5w0E6 Ss7FKG03QU65UO46hFAhi9O7 jAN4P4KeUQPezvswkombdZL6CR TtQSAkgL55Vm2ugQpgQk7kOCDi MNG5FHXioRUgE6LbnZ6iIyCw YDTyVIMtT3NukCDhIVbaP736ZF muCaA7KJQmocJkN8AqGLJnlAgt AzP5t0Y4Te6GCo47ZC88DM14 gUVjg0R6xUX7X8FnVTUabfdnyx qafZC4HLGdBUYgpO88If9tbScu Ob1rBREaDPX3IVVuaRViE2Ic yZ1wCmOqBBAkTVRoH6TakTHeUS xyO594IAkhPeM8EDCiqzSkC3Xr WJRetFpoUiI4o8I1Fn4WDImj yap6Q6CmRmemdRN+SV18IAVfQF 89kWDloNExq3dwuEg9XqUcLWUl DCB2sZvnWZjlf4XnUOLfS59v bGFw (more content not included)... Normal [facility] Consenton 04-21-2022 Consent [id number]#[id number]:127 Normal [facility] Discharge Instructionson Discharge Instructions [id number]#1.00CD:127 Normal [facility] IntraOperative Documentson 0 04-21-2022 IntraOperative Documents [id number]#1.00CD:127 Normal [facility] Main OR PACU I Recordon 03-25 Main OR PACU I Record PACU Phase I Docum ent Type FT Summary Primary Physician: Bill CORCORAN MD Finalized Date/Time: 04/21/22 14:44:59 Pt. Name: AYANADOMO/Sex: 1960 Male Med Rec #: [id number] Physician: Bill CORCORAN MD Financial #: [id number] Pt. Type: O Room/Bed: / Admit/Disch: 04/18/22 [...] period General Comments: 04/21/2022 1444hr Tessie-op doc updated. HOWIE Dunham Acuity Level PACU I FT Entry 1 Start Time 04/18/22 08:28:00 Stop Time 04/18/22 08:58:00 Acuity Level Acuity Level I Last Modified By: Elena Quezada RN 04/18/22 10:37:39 Finalized By: Caroline Berumen RN Document Signatures Signed By: Elena Quezada RN 04/18/22 10:37 Caroline Berumen RN 04/21/22 14:44 Normal [facility] Colonoscopy Procedure Report on 04-18-2022 Colonoscopy Procedure Report Patient: DOMO PIÑA Age: 62 years Sex: Male : 1960 Associated Diagnoses: None Author: Bill CORCORAN MD Pre-Procedure Procedure Date 04/18/2022 08:00:00 . Procedure Type: Colonoscopy. Procedure provider Performed by Bill CORCORAN MD. Referred by VIJAY LOZANO DO. Current history and physical Documented on [...] and Plan Diagnosis: Diverticulosis of sigmoid colon (YSB23-SA K57.30, Discharge, Medical). Course: Progressing as expected. Recommendations: Repeat colonoscopy:: Will depend on barium enema results . Follow-up:: will call patient with barium enema results. Diet:: Regular diet. Medication resumption:: Continue current medications. Return to activities:: After 24 hours. Education and Follow-up: Counseled: Family. Normal [facility] Consent for Treatmenton 03-24 Consent for Treatment [id number]#1.00CD:127 Normal [facility] Inpatient Patient Summaryon 04-18-2022 Inpatient Patient Summary [address] [id number] [facility] Clinical Discharge Instructions PERSON INFORMATION Name: DOMO PIÑA PHYSICIANS Admitting Physician: Bill CORCORAN MD Attending Physician: Bill CORCORAN MD PCP: VIJAY LOZANO DO Discharge Diagnosis: Diverticulosis of sigmoid colon Comment: PATIENT EDUCATION INFORMATION Instructions: Medication Leaflets: Follow up: With: Address: When: Bill CORCORAN [address] [place] [address], [address], [place] [id number] Business (1) Within 7 to 10 days MEDICATION LIST Medications to Continue with No Changes Other Medications atorvastatin (atorvastatin 40 mg Tab) 1 Tablets By Mouth every day. carvedilol (carvedilol 3.125 mg Tab) 1 Tablets By Mouth 2 times a day. loratadine (loratadine 10 mg Tab) 1 Tablets By Mouth every day. Comment: Normal [facility] Main OR Intraoperative Recor don 04-18-2022 Main OR Intraoperative Record IntraOp Document Type FT Summary Primary Physician: Bill CORCORAN MD Finalized Date/Time: 04/18/22 14:14:08 Pt. Name: DOMO PIÑA Sabina Mcarthur/Sex: 1960 Male Med Rec #: [id number] Physician: Bill CORCORAN MD Financial #: [id number] Pt. Type: O Room/Bed: / Admit/Disch: 04/18/22 [...] colonoscopy incomplete. Barium enema ordered by Dr. Corcoran MSRN 04/18/21 Chart opened to review and send charges [facility]oth CSFA Case Attendance FT Entry 1 Entry 2 Entry 3 Case Attendee Glen MCGREGOR, Domo Harrell, Bill Mcgregor MD Role Performed Anesthesiologist of Scrub - Primary Surgeon - Primary Record Time In 04/18/22 07:54:00 04/18/22 07:54:00 04/18/22 07:54:00 Time Out 04/18/22 08:28:00 04/18/22 08:28:00 04/18/22 08:28:00 Procedure COLONOSCOPY(.) COLONOSCOPY(.) COLONOSCOPY(.) Comments Last Modified By: Nuno DENISE, Guero Guero Alberts RN, RN, Morgan E 04/18/22 08:31:33 04/18/22 08:31:33 04/18/22 08:31:33 Entry 4 Case Attendee Guero Reina RN Role Performed Commercial Appraiser - Primary Time In 04/18/22 07:54:00 Time [...] Description Colonoscopy Primary Procedure Yes Primary Surgeon NILO MCGREGOR, Bill Hua Start 04/18/22 07:59:00 Stop 04/18/22 08:25:00 Anesthesia [...] Yes Left (more content not included)... Normal [facility] Main OR Preoperative Recordo n 04-18-2022 Main OR Preoperative Record Holding Area Document Type FT Summary Primary Physician: Bill CORCORAN MD Finalized Date/Time: 04/18/22 07:07:15 Pt. Name: DOMO PIÑA/Sex: 1960 Male Med Rec #: [id number] Physician: Bill CORCORAN MD Financial #: [id number] Pt. Type: O Room/Bed: / Admit/Disch: 04/18/22 [...] day? Patient states Yes Comment - Adult jd Colvin postop adult Supervision supervision available Case Cancelled in No Holding Area see comments below for reason Last Modified By: Naya Blackman RN 04/18/22 07:00:19 General Comments: Pt finished colon prep before midnight, states stool is clear liquid yellow /,RN Finalized By: Naya Blackman RN Document Signatures Signed By: Naya Blackman RN 04/18/22 07:00 Naya Blackman RN 04/18/22 07:07 Normal [facility] Monitor Recordon 04-18-2022 Monitor Record [id number]#1.00CD:127 Normal [facility] Monitor Record [id number]#[id number]:127 Normal [facility] Outpatient Surgery Discharge Instructionon 04-18-2022 Outpatient Surgery Discharge Instruction [place] [id number] Patient Discharge Instructions PERSON INFORMATION Name: DOMO PIÑA Date of : 1960 Current Date: 04/18/2022 08:32:40 PHYSICIANS Admitting Physician: Bill CORCORAN MD Discharge Diagnosis: Diverticulosis of sigmoid colon [...] THE NEAREST EMERGENCY ROOM OR CALL 911 AYANA Stinson ROBERT J, have received the attached patient education materials/instructions and have verbalized understanding: May we do a follow up call? Yes No I was present when discharge instructions were given ____ Patient Signature _ Date Clinican/Nurse Signature Date Follow up: With: Address: When: Bill [address], [address], [place] [phone] Business (1) Within 7 to 10 days Pharmacy Information: Other: [facility] You may receive a survey from [employer] asking you to rate your care experience. Your feedback is important and will help us understand what we do well and how we can improve the quality of care we provide to you, your loved ones and our community. It?s an honor to serve you. Thank you for choosing [facility] HERE ARE THE MEDICATION CHANGES THAT OCCURRED DURING YOUR HOSPITAL STAY Medications to Continue with No Changes Other Medications atorvastatin (atorvastatin 40 mg Tab) 1 Tablets By Mouth every day. carvedilol (carvedilol 3.125 mg Tab) 1 Tablets By Mouth 2 times a day. loratadine (loratadine 10 mg Tab) 1 Tablets By Mouth every day. PATIENT EDUCATION INFORMATION Instructions: Medication Leaflets: [facility] Patient Education - Texton 0 04-18-2022 Patient Education - Text [facility] Progress Note-Physicianon Progress Note-Physician Patient: DOMO BORREGO RN Age: 62 years Sex: Male : 1960 Associated Diagnoses: None Author: Domo Carroll MD Postoperative Information Postoperative disposition: Postoperative disposition: To PACU. Anesthetic utilized: General. Health Status Problem list: All Problems IFG (impaired fasting glucose) / SNOMED CT 1952593729 / Confirmed Nicotine dependence / SNOMED CT 26164044 / Confirmed Positive colorectal cancer screening using Cologuard test / SNOMED CT 4509980702 / Confirmed Vasomotor rhinitis / SNOMED CT 93499412 / Confirmed Physical Examination Vital Signs 04/18/2022 [...] when meets criteria ( To home ). [facility] Comment on above: Result Comment: Elec tronically Signed By: Domo Carroll MD\.br\Date and Time Signed: 04/18/22 09:39 EST Progress Note-Physician Patient: DOMO BORREGO RN Age: 62 years Sex: Male : 1960 [...] IFG (impaired fasting glucose) / SNOMED CT 2885359763 / Confirmed Nicotine dependence / SNOMED CT 95839661 / Confirmed Positive colorectal cancer screening using Cologuard test / SNOMED CT 2388392820 / Confirmed Vasomotor rhinitis / SNOMED CT 67210392 / Confirmed, Active Problems (4) IFG (impaired fasting glucose) Nicotine dependence Positive colorectal cancer screening using Cologuard test Vasomotor rhinitis Histories Past Medical History: No active or resolved past medical history items have been selected or recorded. Family History: Heart disease Father Diabetes mellitus type 2 Father COPD Father Mother Procedure history: Repair of right inguinal hernia ([id number]). Social History Social & Psychosocial Habits Alcohol [...] review: No qualifying data available . Plan [place] [employer] (ASA) physical status classification: Class II. Anesthetic Preoperative Plan: Anesthesia General. Normal [facility] Comment on above: Result Comment: Elec tronically Signed By: Glen MCGREGOR, Domo Diggs.br\Date and Time Signed: 04/18/22 07:01 EST XR Barium Enema w/ Air Compl eteon 04-18-2022 XR Barium Enema w/ Air Complete Exam Date/Time: 04/18/2022 11:54 EST Reason for Exam: Incomplete colonoscopy Report IMPRESSION: PREDOMINANTLY SIGMOID DIVERTICULOSIS. OTHERWISE, NEGATIVE MILDLY LIMITED DOUBLE CONTRAST BARIUM ENEMA. EXAM: XR Barium Enema w/ Air Complete DATE: 04/18/2022 CLINICAL HISTORY: Incomplete colonoscopy. COMPARISON: None available. TECHNIQUE: An erect payroll and benefits analyst radiograph of the abdomen and pelvis was [...] NANDINI Technologist: ADA Technical Comments Radiation Dose: javid Millard in mGy = 165.1 Normal [facility] Coding Summary.on 04-14-2022 Coding Summary. [id number] Gh0bWw +PGhlYWQ+LL7KRPPwC89ocQMny X8MN2rEBK6JSPEBGEETAW5FJM2 ydUM8LNujS7ZaefXb XslvgKUeGM74OZd8ZQV2oSrsPL tyvX2syOAhF0k9VdRbAS64cV20 XUamRVVuNoL7IcLnjwqhnAKi C3nzPfAqbOYgKvi+PHRhYmxlIH moZOIaLNbmSAWxPsRrpFgfBY6t Iq0vLIHiCZNvgFacbWViPyMg n1lcRYQnTBhxZM2dgCpuG7FggL G0IHZgj0x7Wd25xWU+PHRkIHN0 kThgMJtzs221PyVvf1xxPZC1 vGZuRJwsXXD9L36up2Z0BVWjZF OzRRB4jFS4jV7rfIccegdzK4Pl dMEeUcY6ZSB7oWTyeG3fuZso qyfowN6sTsm+V92QQP2PWXHOVD 2DXov6K6QuCvbtaQO+EK83WWJv UN98hUMasMWrj7stkDu6FeZy ROMzGKN8xPddSKsjz1SyOSDiU0 1nsEMdi4U6DXJbnNprzRGaEoNo dAP3lU3iWOupjzmye9coyddp Wbnvs5vobf88cV44G06fHKubQB MiOKG2YVByMMQyrJqlpf6qwK1x Ii8+VCprq6zon4dqwPp4JkZt QLZkpwZxuHtcEZS9c4GnHb81H3 VijZdte7HyPyz3ir92uLWzn5V5 oOH6TZabPQUnvD4xTLivAoA4 IHHtZlBkrZ52sPUfBXijTv0tkQ lfcJckMF7tKPSlkducNHZfdQ2f UWFfuOUzuEyjNS8mNYIofzgt e567ClTgOJW1TVBsoIOxT6HohC 4cWfQnFQKhSTYwJ9TqkYWoVKrc V062BJxuNtR4IZPcfbJiB4Kp GWLonUhcPnR4u3Q4Ld8Iz3Xegy qrEZS5TXyzBKQdJrUwTaIvVzH6 U8BbVuk4QUUlbXzcJK8gT8Ob VDDkopkmnfozeHA0WAMhMDQiuL 98oZRdTSoxVa2cx7R2r001WADg WUIhaT33Uu5saLxhCNPxwBCS aM1pjjncf9ihbsdcNpUsZWOoTS d3YDg8RACwsQnhHfCiVRW1QfG7 PEQ1wNFzhU8zwGwpogclrU0y Oyc+C22koJ5rSAQ6XNG4frguRS AfeqBkWI67HC82S2BwGfnaiPUx bGU+HJIzctSyyOkdLA1tBiSv l5gro0GmFPcaG5JyRINwPWgqLq s5TDMiMSM4lMJ7wK6bSPUxTCsg d1Y5pIL8Z8AdgjYakq7ru8br PZQvUZuwJ40iuMIfq8E3ISXfqE Y9FGIefYgbEcVecT10Zrj+PGNv vWlwn0MsQdopx9xuy8rkuKy0 HsZvPUOqscMhaOzeBVS7e4UdOh 27F50dRYqnHKSdGUPuQGKmLWIa jNxxpr6aqW0lGo7+PGNvbCB3 lSS1qN5rDMArHwC0DUtjJ888Sq CqdCKeKfrqb9pix6ejuOa4RtPp KGEorwHdsSddXEZ6v6HgOh20 D18yLUnpSLWqKSMlASVlGPZfbN akev2vnH7zAg1+SF2im3lhff10 rT36zQN+LPFvXCN2pBgrZRhi NIKgeV0tCUpqHrW4LIMfWeIsyX 37aIGcGQohMk0cwJeutYxdCZ3f YZFeebpny924CdXam6ioSMXm bYWlQQfeJYQ9S12cw8Z7PTYqEF FjQSB5sZL4aP9xmYytaciuzUNz bTfherFbxBmtAYhzHPjfX083 IHRvcDsnPlBhdGllbnQgTmFtZT z2F8YqQnw7IHRfaEopTW5svWMg XIvhId3jvDagvRbtFA5tRSTo cvfaz466XkAze4nrMWBazRPdHL soTCB7R23gn5X2LQHiUPHmUWG8 yUB9pZ5vgPkkhejfkAMdkJnr fiQkbThsNXfyJColV894SIQseL npUkPthbAgYYIqaVW7KC94PE20 vNWmm8B5oIH7A0DlXXTqdbop umzznTL3QZLpDISjnE91Vx0eqZ gvVa9wEARvYAM3CPTfpUYbK8Gk tK1jYfUgNHOsNNLkF0RauZEd ANqdM640WTinXbP8VXNhemDcF3 XlAKJulNqdAdU7t2E0Zz1BR3Y2 AM28FJ28uXUyk0W4uVA6C1Yw USJluxaijlmqtPR0FZOyYCEquD 95Go4dhMafIr5tZEHgFNN9BWBs xUKcG7AonW7yLqDaWGZoVDRg J8RgdRUsMAgeS324MWefSqZ9YK IilyNmQ0MvOANhwBzqAaG7c3Y8 Bt2IBBp1ZQ32PO57hAGka9M2 fTB5O7OqYBDuukgddrytoUQ1CG XcTHIxsO99Fu2rzPgoUg4xXTIj SQE3KAOtgEHwZ5ErdT7xUsNe AWQuTGIgI1OjlUFfCAnxV618GZ flMcT3MELgidSfE8FxHHLknRpi GrT4t6F8Uu4KEYVhYB87SZA5 wEU0RK04QW59F6DoFtuuoGZtwV U+PHRhYmxlIHdpZHRoPScxMDAl UbVszJgmBJ7mBw6pCHQaGUEo bCjsvMRpTbVjd3juJOOjDWjoDS 3ucSpbV9BolAL0NNHpd8c1Mt39 X27oB3WmcCC+PMLgnBN6eBC9 rF9uMfPhBgM9GLmrU018NbAtoW AtYjyri1mtb3ifyJo9DlG3OGIn diRrzGnqGKI0i0BlZf75K32x IHdpZHRoPSIxNSUiIHZhbGlnbj 5aeY1gVa0+HJRkyHJ9rOE7kI8y AhVxVaN2SLniK840CiQcaYSh Touhq1ynn6nedNb4VyRlPAFmux OneFkkYGY2c1NwYd62G5PxdQxv f7JoBcg0ds31mXPgw1P9lFS2 Q2OwYRFkhthrlBEmwClyZF8aGH OdjjqfDOSnxA7cQYMlE9g0OqLc FoR8QNvdG3CjbeT4GVQjyPHa VPipDSE5E17ty7U1EWBbREYmZW M6vWP9sM8eoOleukeeuQFtmIbi txNwxTwhAMrlRRjtO546LSNu nGyhCDNlgQ6cLKEwoYHgzMfgEB 4wNTBpbjsnPkJMQUNLQlVSTiwg Vj1HXNSZAJk2A1RaNed1SWGr rIweWP2iiFOgGLjzEx5qgDfadO boBM0cLXInejojAABxpU7vBCNb lVJvdDhpWQ5oBMAzvgodq912 HbKlVGW2ZOQeqUFjO3RbdN1nDz DjQJTcJUHyN4KwdBBoKOevE641 RKfcPqB3WBHqgeDwM7HkOGFe fJbfSnW1r3J2Gb8sLZ8qYE8gGW HzBD78BZ40hTHck7M8gHP6G5Si VGAfdefvxpkclGE9OSIpWVOp eZ62oOWjKGziAy5sp2K6x316UD CuYQWlqM64Gw9qnCfgBRPpaEZY nL9rlpsvn6kossnhViBaBNYz BVs8EZy7KCVggDxoZnKkROR1Tt G8WRM6iEDeuB4wnCzokbilmU0d Oyc+DdZkQXTuaqN8Y9XlWey0 ZBVpeAcnPW2xfKEaSBrpOh6nmU utiBgbXD8tZQAoqgyfGDGqxV4z BONckJAtxXcoNB0hILSqctfo a361JiTrBSH7KUVwtQOpG2XifN 7kWgLmEQCeZTEtV6GxjUJhRTcz L914LNtoRlA2JTWbkpFnA8Jj KHXjfMexEnE8l3J2Gz6EVLcaVW 40XW23zZTkx1A1xCN2S0EiOIQk tbfbznuxfOZ7CCMcBLKinS31 bROtSLeeZy0yg2H8d469BQHiGN VhjU42Vg4gaDpdXUXrnQCEuM0x cdmkp0tikkpsHbWbJCVdKSz8 WYb8MIScuDufQwApKWB2ArI4SO E4kPFgnB1bzDidoxnhxD6qPtl+ JiWmpYYwpO2gFF91NL73D7Qq PjwvdGFibGU+PHRhYmxlIHdpZH CkTRwrZGEyVzLfhPqaWJ6kFr1w MFIsOQCpbEofcVTyHnEgo9hk FYQzXVkrHW4keIypF8LmsKA5RE Grr0n1Jj18X22yF7MycRZ+PGNv oDD4tBT3uS8fUaIeCtO2IRjc X890TaLopIEjPblwt0ofs3nipO g2CiWdLJOhgbJdpAdtVGS6x6Ll Tm67R04yZRpmOTVpRUSwEWVq YDBnzEjzej6nbL9bJx7+PGNvbC J1iBK4qH4vMgNgBnR7VJhmT374 HmJxfOJiWxfjG33cP3ZysZP+ TBRkCgv8ZJTnaZstEX3imVCpCH jeZt3hSQN1WtVqYdGmGWchM4Yn EAGmtprynncphZB7UJZcLYLx pS54Uu2qfOhoNk3pKIQcVZD1FI RpdONaJ4EicX6iAeWzUCWbIRHl K5VvfHOgAUbtY640HKceHnM5 FKBbfkStZ9LqRIGbaXlyCvM2x1 B1Mi2TrBnxdOWbUA8kJaZrICm4 Z8CgUyk3IGOixKujEJ8xjOHi VIldWt6foXdmqBmmCK7eOCLgty sip815ZnJpp7gqDUAcvFFnRHax XIQ6V55mk5I0EYVvCQXsYMN6 rNE3mI1hzHjjuuhumRHiiSyskk CgrJfnJAmkODmcN229MPOzaEky UfALCio5S1FpEtv0WFAjiFsu XA0usJIqDIkyRp2kyBnafRvjLL 3kHPHrqxncp468QrJvu6hlOJMg uZLhPLyuUAV4A13sk6R3EVVz DGMsAFF0pRV3xA4eaClzzzffwN JepSevpqWboEngYBnlTWwnI625 VZGmtItvRh0HNri6N8NbQmd9 JXMsvXxgTM3qiTTvFLsaFj9mrS yvzBopGU2aSDRmlyyco221TaHb u9kdEMXxbHFrWDrnMMB7Q44g y1O6HIHtFWQaPSF5nOI9sO0tfO lnbjogbGVmdDsgdmVydGljYWwt TJvkA066IIUwtKqiUqNatDXz OjwvdGQ+AZ70rr03C5PkQcpnHg l6NFTjPOK4tXR0vF6lXRPsWHqz x7W3bXH1J4AwecDsth7xo9ub YXBz (more content not included)... Normal [facility] COVID-19 ([facility])on 04-12-2022 Performing Instrument FT [place] 2 Normal [facility] Comment on above: Performed By: #### 2 [id number] ####[facility] [id number] [place] [address] SARS-CoV-2 (COVID-19) RNA JULIANNE+probe Ql (Resp) Not detected Normal Not Detected [facility] Comment on above: Result Comment: This test result should be correlated with clinical presentations and medical history by a healthcare provider to determine its clinical significance. This assay was performed by a reverse transcriptase real-time polymerase chain reaction (rt PCR) method on the [employer] system. This test has been authorized only [...] or revoked sooner. Performed By: #### 2 [id number] ####[place] [address] SARS-CoV-2 (COVID-19) RNA JULIANNE+probe Ql (Unsp spec) Pass Normal Pass [facility] Comment on above: Performed By: #### 2 [id number] ####[place] [address] Specimen source Nom (Unsp spec) Nasal Normal [facility] Comment on above: Performed By: #### 2 [id number] ####[place] [address] Consent for Treatmenton 03-24 Consent for Treatment [id number]:127 Normal [facility] COVID-19 ([facility])on 04-10-2022 ADMITTED TO INTENSIVE CARE UNIT FOR CONDITION OF INTEREST:FIND:PT: Unknown Normal [facility] Comment on above: Performed By: #### 2 [id number] ####[place] [address] EMPLOYED IN A HEALTHCARE SETTING:FIND:PT: Unknown Normal [facility] Comment on above: Performed By: #### 2 [id number] ####[place] [address] FIRST TEST FOR CONDITION OF INTEREST:FIND:PT: Unknown Normal [facility] Comment on above: Performed By: #### 2 [id number] ####[place] [address] HAS SYMPTOMS RELATED TO CONDITION OF INTEREST:FIND:PT: Unknown Normal [facility] Comment on above: Performed By: #### 2 [id number] ####[id number] [place] [address] HOSPITALIZED FOR CONDITION OF INTEREST:FIND:PT: Unknown Normal [facility] Comment on above: Performed By: #### 2 [id number] ####[facility] [address] [place] [address] STATUS:FIND:PT: NO Normal [facility] Comment on above: Performed By: #### 2 [id number] ####[place] [address] RESIDES IN A [facility] CARE SETTING:FIND:PT: Unknown Normal [facility] Comment on above: Performed By: #### 2 [id number] ####[place] [address] US CAROTID ART BILon 023 US CAROTID ART ELLEN EXAMINATION: US GRAF TID ART ELLEN HISTORY: Partial occlusion of left [...] by: ISABELLE TENA Date: 2022-04-08 08:14 Normal [facility] ECHOCARDIO M/2D COMPLETEon 0 04-07-2022 ECHOCARDIO M/2D COMPLETE Patient: DOMO PIÑA Exam Date: 04/07/2022 : 1960 Gender:M Ordering : DR VIJAY LOZANO D.O. Admission #: [id number] Family : Order #: [id number] CLICK HERE TO VIEW EXAM ECHOCARDIOGRAM REPORT [...] Thompson M.D. on 2022 at 09:36 Normal [facility] CBC AUTO DIFFon 02-01-2022 BASO # 0.1 103/ul Normal 0.0-0.1 [facility] Comment on above: Performed By: #### C BC #### [facility] [address] [place] [address] Dr. Luisana Ramachandran Basophils/100 WBC (Bld) 1.1 % Normal 0.2-2.0 [facility] Comment on above: Performed By: #### C BC #### [facility] [address] [place] [address] Dr. Luisana Ramachandran EO # 0.2 103/ul Normal 0.0-0.7 [facility] Comment on above: Performed By: #### C BC #### [facility] [address] [place] [address] Dr. Luisana Ramachandran Eosinophils/100 WBC (Bld) 2.4 % Normal 0.9-7.0 [facility] Comment on above: Performed By: #### C BC #### [facility] [address] [place] [address] Dr. Luisana Ramachandran Erythrocyte distribution width (RBC) [Ratio] 13.2 % Normal 11.0-15.0 [facility] Comment on above: Performed By: #### C BC #### [facility] [address] [place] [address] Dr. Luisana Ramachandran Hematocrit (Bld) [Volume fraction] 49.2 % Normal 42.0-54.0 [facility] Comment on above: Performed By: #### C BC #### [facility] [address] [place] [address] Dr. Luisana Ramachandran Hemoglobin (Bld) [Mass/Vol] 16.0 g/dL Normal 14.0-18.0 [facility] Comment on above: Performed By: #### C BC #### [facility] [address] [place] [address] Dr. Luisana Ramachandran IG # 0.03 10e3/ul Normal 0.00-0.03 [facility] Comment on above: Performed By: #### C BC #### [facility] [address] [place] [address] Dr. Luisana Ramachandran IG % 0.3 % Normal 0.0-0.5 [facility] Comment on above: Performed By: #### C BC #### [facility] [address] [place] [address] Dr. Luisana Ramachandran LYMPH # 3.2 103/ul Normal 1.2-3.8 [facility] Comment on above: Performed By: #### C BC #### [facility] [address] [place] [address] Dr. Luisana Ramachandran Lymphocytes/100 WBC (Bld) 32.4 % Normal 20.5-60.0 [facility] Comment on above: Performed By: #### C BC #### [facility] [address] [place] [address] Dr. Luisana Ramachandran MANUAL DIFF REQ NO Normal [facility] Comment on above: Performed By: #### C BC #### [facility] [address] [place] [address] Dr. Luisana Ramachandran MCH (RBC) [Entitic mass] 29.1 pg Normal 25.9-34.0 [facility] Comment on above: Performed By: #### C BC #### [facility] [address] [place] [address] Dr. Luisana Ramachandran MCHC (RBC) [Mass/Vol] 32.5 g/dL Normal 29.9-35.2 [facility] Comment on above: Performed By: #### C BC #### [facility] [address] [place] [address] Dr. Luisana Ramachandran MCV (RBC) [Entitic vol] 89.6 fL Normal 80.0-94.0 [facility] Comment on above: Performed By: #### C BC #### [facility] [address] [place] [address] Dr. Luisana Ramachandran MONO # 0.8 103/ul Normal 0.3-0.8 [facility] Comment on above: Performed By: #### C BC #### [facility] [address] [place] [address] Dr. Luisana Ramachandran Monocytes/100 WBC (Bld) 8.1 % Normal 1.7-12.0 [facility] Comment on above: Performed By: #### C BC #### [facility] [address] [place] [address] Dr. Luisana Ramachandran NEUT # 5.5 103/ul Normal 1.4-6.5 [facility] Comment on above: Performed By: #### C BC #### [facility] [address] [place] [address] Dr. Luisana Ramachandran Neutrophils/100 WBC (Bld) 55.7 % Normal 43.0-75.0 [facility] Comment on above: Performed By: #### C BC #### [facility] [address] [address] [address] Luisana Ramachandran Platelet mean volume (Bld) [Entitic vol] 11.1 fL Normal 9.5-13.5 [facility] Comment on above: Performed By: #### C BC #### [facility] [address] [place] [address] Dr. Luisana Ramachandran PLT 228 103/ul Normal 150-450 [facility] Comment on above: Performed By: #### C BC #### [facility] [address] [place] [address] Dr. Luisana Ramachandran RBC 5.49 106/ul Normal 4.70-6.10 [facility] Comment on above: Performed By: #### C BC #### [facility] [address] [place] [address] Dr. Luisana Ramachandran WBC 9.8 103/ul Normal 4.0-11.0 [facility] Comment on above: Performed By: #### C BC #### [facility] [address] [place] [address] Dr. Luisana Ramachandran LIPID PROFILEon 02-01-2022 CHOL-HDL RATIO NORM SEE BELOW Normal [facility] Comment on above: Result Comment: 3.3 - 4.4 LOW RISK 4.4 - 7.1 AVERAGE RISK 7.1 - 11.0 MODERATE RISK >11.0 HIGH RISK Performed By: #### L IPID, CMP #### [facility] [address] [place] [address] Dr. Luisana Ramachandran Cholesterol [Mass/Vol] 199 mg/dL Normal <=200 [facility] Comment on above: Performed By: #### L IPID, CMP #### [facility] [address] [place] [address] Dr. Luisana Ramachandran Cholesterol in HDL [Mass/Vol] 53 mg/dL Normal 40-60 [facility] Comment on above: Performed By: #### L IPID, CMP #### [facility] [address] [place] [address] Dr. Luisana Ramachandran Cholesterol in LDL [Mass/Vol] 127.2 mg/dL Normal [facility] Comment on above: Performed By: #### L IPID, CMP #### [facility] [address] [place] [address] Dr. Luisana Ramachandran Cholesterol.total/[place] sterol in HDL [Mass ratio] 3.8 {ratio} Normal [facility] Comment on above: Performed By: #### L IPID, CMP #### [facility] [address] [address] [address] Luisana Ramachandran HDL NORMAL > or = 60 mg/dl - LO W CARDIOVASCULAR RISK <40 mg/dl - HIGH CARDIOVASCULAR RISK Normal [facility] Comment on above: Performed By: #### L IPID, CMP #### [facility] [address] [place] [address] Dr. Luisana Ramachandran LDL CALC NORMAL SEE BELOW Normal [facility] Comment on above: Result Comment: <100 mg/dl OPTIMAL 100 - 129 mg/dl NEAR OR ABOVE OPTIMAL 130 - 159 mg/dl BORDERLINE HIGH 160 - 189 mg/dl HIGH >190 mg/dl VERY HIGH Performed By: #### L IPID, CMP #### [facility] [address] [place] [address] Dr. Luisana Ramachandran Triglyceride [Mass/Vol] 94 mg/dL Normal <=150 T [facility] Comment on above: Performed By: #### L IPID, CMP #### [facility] [address] [place] [address] Dr. Luisana Ramachandran VLDL CALC 18.8 mg/dL Normal [facility] Comment on above: Performed By: #### L IPID, CMP #### [facility] [address] [place] [address] Dr. Luisana Ramachandran PROF 14(COMP METB)on 022 Albumin [Mass/Vol] 4.0 g/dL Normal 3.4-5.0 [facility] Comment on above: Performed By: #### L IPID, CMP #### [facility] [address] [place] [address] Dr. Luisana Ramachandran Albumin/Globulin [Mass ratio] 1.0 {ratio} Normal [facility] Comment on above: Performed By: #### L IPID, CMP #### [facility] [address] [address] [address] Luisana Ramachandran ALP [Catalytic activity/Vol] 70 U/L Normal 46-116 [facility] Comment on above: Performed By: #### L IPID, CMP #### [facility] [address] [address] [address] Luisana Ramachandran ALT [Catalytic activity/Vol] 27 U/L Normal 16-63 [facility] Comment on above: Performed By: #### L IPID, CMP #### [facility] [address] [address] [address] Luisana Ramachandran Anion gap [Moles/Vol] 12.0 mmol/L Normal [facility] Comment on above: Performed By: #### L IPID, CMP #### [facility] [address] [place] [address] Dr. Luisana Ramachandran AST [Catalytic activity/Vol] 15 U/L Normal 15-37 [facility] Comment on above: Performed By: #### L IPID, CMP #### [facility] [address] [place] [address] Dr. Luisana Ramachandran Bilirubin [Mass/Vol] 0.3 mg/dL Normal 0.2-1.0 [facility] Comment on above: Performed By: #### L IPID, CMP #### [facility] [address] [place] [address] Dr. Luisana Ramachandran Calcium [Mass/Vol] 9.3 mg/dL Normal 8.5-10.1 [facility] Comment on above: Performed By: #### L IPID, CMP #### [facility] [address] [place] [address] Dr. Luisana Ramachandran Chloride [Moles/Vol] 103 mmol/L Normal 98-107 [facility] Comment on above: Performed By: #### L IPID, CMP #### [facility] [address] [address] [address] Luisana Ramachandran CO2 [Moles/Vol] 29.2 mmol/L Normal 21.0-32.0 [facility] Comment on above: Performed By: #### L IPID, CMP #### [facility] [address] [place] [address] Dr. Luisana Ramachandran Creatinine [Mass/Vol] 0.94 mg/dL Normal 0.70-1.30 [facility] Comment on above: Performed By: #### L IPID, CMP #### [facility] [address] [place] [address] Dr. Luisana Ramachandran EGFR-AF SIER[place] LEONEAN >60 Normal >=60 [facility] Comment on above: Performed By: #### L IPID, CMP #### [facility] [address] [place] [address] Dr. Luisana Ramachandran EGFR-NON AF [place] LEONEAN >60 Normal >=60 [facility] Comment on above: Performed By: #### L IPID, CMP #### [facility] [address] [place] [address] Dr. Luisana Ramachandran Globulin (S) [Mass/Vol] 4.0 g/dL Normal [facility] Comment on above: Performed By: #### L IPID, CMP #### [facility] [address] [place] [address] Dr. Luisana Ramachandran Glucose [Mass/Vol] 96 mg/dL Normal 74-106 [facility] Comment on above: Performed By: #### L IPID, CMP #### [facility] [address] [place] [address] Dr. Luisana Ramachandran Potassium [Moles/Vol] 4.2 mmol/L Normal 3.5-5.1 [facility] Comment on above: Performed By: #### L IPID, CMP #### [facility] [address] [place] [address] Dr. Luisana Ramachandran Protein [Mass/Vol] 8.0 g/dL Normal 6.4-8.2 [facility] Comment on above: Performed By: #### L IPID, CMP #### [facility] [address] [place] [address] Dr. Luisana Ramachandran Sodium [Moles/Vol] 140 mmol/L Normal 136-145 [facility] Comment on above: Performed By: #### L IPID, CMP #### [facility] [address] [address] [address] Luisana Ramachandran Urea nitrogen [Mass/Vol] 15.0 mg/dL Normal 7.0-18.0 [facility] Comment on above: Performed By: #### L IPID, CMP #### [facility] [address] [address] [address] Luisana Ramachandran Urea nitrogen/Creatinine [Mass ratio] 16.0 mg/mg Normal [facility] Comment on above: Performed By: #### L IPID, CMP #### [facility] [address] [place] [address] Dr. Luisana Ramachandran Vital Signs Date Time Vital Sign Value Performing Clinician Facility 11-14-2024 14:52-0400 Body mass index (BMI) [Ratio] 23.34 kg/m2 Valentin Bailon MD Work Phone: [facility] 11-14-2024 14:52-0400 Body temperature 98.2 [degF] Valentin Bailon MD Work Phone: [facility] 11-14-2024 14:52-0400 Body weight 63.7 kg Valentin Bailon MD Work Phone: [facility] 11-14-2024 14:52-0400 Diastolic blood pressure 76 mm[Hg] Valentin Bailon MD Work Phone: [facility] 11-14-2024 14:52-0400 Heart rate 129 /min Valentin Bailon MD Work Phone: [facility] Comment on above: PULSE VERY HIGH 11-14-2024 14:52-0400 Respiratory rate 18 /min Valentin Bailon MD Work Phone: [facility] 11-14-2024 14:52-0400 SaO2% (BldA) [Mass fraction] 98 % Valentin Bailon MD Work Phone: [facility] 11-14-2024 14:52-0400 Systolic blood pressure 109 mm[Hg] Valentin Bailon MD Work Phone: [facility] 11-14-2024 14:37-0400 Body height 165.2 cm Pulm Addjean Work Phone: [facility] 11-14-2024 14:37-0400 Body mass index (BMI) [Ratio] 23.3 kg/m2 Pulm Addon Work Phone: [facility] 11-14-2024 14:37-0400 Body weight 63.6 kg Pulm Addjean Work Phone: [facility] 11-14-2024 13:00-0400 Diastolic blood pressure 78 mm[Hg] Bridgette Shaver MD Work Phone: [facility] 11-14-2024 13:00-0400 Heart rate 86 /min Bridgette Shaver MD Work Phone: [facility] 11-14-2024 13:00-0400 Respiratory rate 16 /min Bridgette Shaver MD Work Phone: [facility] 11-14-2024 13:00-0400 SaO2% (BldA) [Mass fraction] 96 % Bridgette Shaver MD Work Phone: [facility] 11-14-2024 13:00-0400 Systolic blood pressure 139 mm[Hg] Bridgette Shaver MD Work Phone: [facility] 11-14-2024 11:12-0400 Body height 167.6 cm Bridgette Shaver MD Work Phone: [facility] 11-14-2024 11:12-0400 Body mass index (BMI) [Ratio] 22.76 kg/m2 Bridgette Shaver MD Work Phone: [facility] 11-14-2024 11:12-0400 Body temperature 96.8 [degF] Bridgette Shaver MD Work Phone: [facility] 11-14-2024 11:12-0400 Body weight 63.96 kg Bridgette Shaver MD Work Phone: [facility] 10-25-2024 14:33-0400 Body height 167.64 cm Vijay Ball DO Work Phone: [facility] 10-25-2024 14:33-0400 Body mass index (BMI) [Ratio] 22.5 kg/m2 Vijay Ball DO Work Phone: [facility] 10-25-2024 14:33-0400 Body weight 63.27 kg Vijay Ball DO Work Phone: [facility] 10-25-2024 14:33-0400 Diastolic blood pressure 82 mm[Hg] Vijay Ball DO Work Phone: [facility] 10-25-2024 14:33-0400 Heart rate 95 /min Vijay Ball DO Work Phone: [facility] 10-25-2024 14:33-0400 Respiratory rate 16 /min Vijay Ball DO Work Phone: [facility] 10-25-2024 14:33-0400 SaO2% (BldA) [Mass fraction] 97 % Vijay Ball DO Work Phone: [facility] 10-25-2024 14:33-0400 Systolic blood pressure 114 mm[Hg] Vijay Ball DO Work Phone: [facility] 10-12-2024 09:09-0400 Body height 167.6 cm NATALYA Wells MD Work Phone: [facility] 10-12-2024 09:09-0400 Body mass index (BMI) [Ratio] 22.13 kg/m2 NATALYA Wells MD Work Phone: [facility] 10-12-2024 09:09-0400 Body temperature 97.3 [degF] NATALYA Wells MD Work Phone: [facility] 10-12-2024 09:09-0400 Body weight 62.2 kg NATALYA Wells MD Work Phone: [facility] 10-12-2024 09:09-0400 Diastolic blood pressure 82 mm[Hg] NATALYA Wells MD Work Phone: [facility] 10-12-2024 09:09-0400 Heart rate 100 /min NATALYA Wells MD Work Phone: [facility] 10-12-2024 09:09-0400 SaO2% (BldA) [Mass fraction] 98 % NATALYA Wells MD Work Phone: [facility] 10-12-2024 09:09-0400 Systolic blood pressure 108 mm[Hg] NATALYA Wells MD Work Phone: [facility] 10-07-2024 08:00-0400 Body temperature 97.3 [degF] Vijay Ball DO Work Phone: [facility] 10-07-2024 08:00-0400 Diastolic blood pressure 88 mm[Hg] Vijay Ball DO Work Phone: [facility] 10-07-2024 08:00-0400 Heart rate 89 /min Vijay Ball DO Work Phone: [facility] 10-07-2024 08:00-0400 Respiratory rate 16 /min Vijay Ball DO Work Phone: [facility] 10-07-2024 08:00-0400 SaO2% (BldA) [Mass fraction] 96 % Vijay Ball DO Work Phone: [facility] 10-07-2024 08:00-0400 Systolic blood pressure 121 mm[Hg] Vjiay Ball DO Work Phone: [facility] 10-07-2024 06:18-0400 Body weight 67 kg Vijay Ball DO Work Phone: [facility] 10-05-2024 16:22-0400 Body height 167.64 cm Vijay Ball DO Work Phone: [facility] 10-04-2024 22:28-0400 Diastolic blood pressure 75 mm[Hg] Vijay Ball DO Work Phone: [facility] 10-04-2024 22:28-0400 Heart rate 94 /min Vijay Ball DO Work Phone: [facility] 10-04-2024 22:28-0400 Respiratory rate 18 /min Vijay Ball DO Work Phone: [facility] 10-04-2024 22:28-0400 SaO2% (BldA) [Mass fraction] 98 % Viajy Ball DO Work Phone: [facility] 10-04-2024 22:28-0400 Systolic blood pressure 118 mm[Hg] Vijay Ball DO Work Phone: [facility] 10-04-2024 17:23-0400 Body height 167.64 cm Vijay Ball DO Work Phone: [facility] 10-04-2024 17:23-0400 Body temperature 98.3 [degF] Vijay Ball DO Work Phone: [facility] 10-04-2024 17:23-0400 Body weight 61.23 kg Vijay Ball DO Work Phone: [facility] 09-14-2024 11:18-0400 Body height 167.6 cm Ines Mendoza MD Work Phone: [facility] 09-14-2024 11:18-0400 Body mass index (BMI) [Ratio] 22.6 kg/m2 Ines Mendoza MD Work Phone: [facility] 09-14-2024 11:18-0400 Body weight 63.5 kg Ines Mendoza MD Work Phone: [facility] 09-08-2024 10:20-0400 Body height 167.64 cm Vijay Ball DO Work Phone: [facility] 09-08-2024 10:20-0400 Body mass index (BMI) [Ratio] 22.6 kg/m2 Vijay Ball DO Work Phone: [facility] 09-08-2024 10:20-0400 Body weight 63.61 kg Vijay Ball DO Work Phone: [facility] 09-08-2024 10:20-0400 Diastolic blood pressure 74 mm[Hg] Vijay Ball DO Work Phone: [facility] 09-08-2024 10:20-0400 Heart rate 76 /min Vijay Ball DO Work Phone: [facility] 09-08-2024 10:20-0400 Respiratory rate 12 /min Vijay Ball DO Work Phone: [facility] 09-08-2024 10:20-0400 Systolic blood pressure 106 mm[Hg] Vijay Ball DO Work Phone: [facility] 08-24-2024 11:27-0400 Diastolic blood pressure 76 mm[Hg] Vijay Ball DO Work Phone: [facility] 08-24-2024 11:27-0400 Heart rate 84 /min Vijay Ball DO Work Phone: [facility] 08-24-2024 11:27-0400 Respiratory rate 16 /min Vijay Ball DO Work Phone: [facility] 08-24-2024 11:27-0400 SaO2% (BldA) [Mass fraction] 93 % Vijay Ball DO Work Phone: [facility] 08-24-2024 11:27-0400 Systolic blood pressure 116 mm[Hg] Vijay Ball DO Work Phone: [facility] 08-24-2024 08:00-0400 Body temperature 98.1 [degF] Vijay Ball DO Work Phone: [facility] 08-24-2024 04:38-0400 Body weight 68.9 kg Vijay Ball DO Work Phone: [facility] 08-22-2024 15:20-0400 Body height 167.64 cm Vijay Ball DO Work Phone: [facility] 08-21-2024 12:49-0400 Diastolic blood pressure 74 mm[Hg] Vijay Ball DO Work Phone: [facility] 08-21-2024 12:49-0400 Heart rate 95 /min Vijay Ball DO Work Phone: [facility] 08-21-2024 12:49-0400 Respiratory rate 18 /min Vijay Ball DO Work Phone: [facility] 08-21-2024 12:49-0400 SaO2% (BldA) [Mass fraction] 95 % Vijay Ball DO Work Phone: [facility] 08-21-2024 12:49-0400 Systolic blood pressure 106 mm[Hg] Vijay Ball DO Work Phone: [facility] 08-21-2024 11:22-0400 Body height 167.64 cm Vijay Ball DO Work Phone: [facility] 08-21-2024 11:22-0400 Body temperature 97.5 [degF] Vijay Ball DO Work Phone: [facility] 08-21-2024 11:22-0400 Body weight 64.5 kg Vijay Ball DO Work Phone: [facility] 04-10-2024 12:20-0500 Body height 167.64 cm [facility] 04-10-2024 12:20-0500 Body mass index (BMI) [Ratio] 22.2 kg/m2 [facility] 04-10-2024 12:20-0500 Body temperature 96.6 [degF] [facility] 04-10-2024 12:20-0500 Body weight 62.59 kg [facility] 04-10-2024 12:20-0500 Diastolic blood pressure 76 mm[Hg] [facility] 04-10-2024 12:20-0500 Heart rate 124 /min [facility] 04-10-2024 12:20-0500 Respiratory rate 18 /min [facility] 04-10-2024 12:20-0500 SaO2% (BldA) [Mass fraction] 95 % [facility] 04-10-2024 12:20-0500 Systolic blood pressure 106 mm[Hg] [facility] 04-18-2022 08:55-0500 Blood Pressure Location Bill NILL [facility] 04-18-2022 08:55-0500 Diastolic blood pressure 94 mm[Hg] Bill NILL [facility] 04-18-2022 08:55-0500 Heart rate 84 /min Bill NILL [facility] 04-18-2022 08:55-0500 Mean blood pressure 108 mm[Hg] Bill NILL [facility] 04-18-2022 08:55-0500 Respiratory rate 19 /min Bill NILL [facility] 04-18-2022 08:55-0500 SaO2% (BldA) [Mass fraction] 95 % Bill NILL [facility] 04-18-2022 08:55-0500 Systolic blood pressure 136 mm[Hg] Bill NILL [facility] 04-18-2022 08:45-0500 Blood Pressure Location Bill NILL [facility] 04-18-2022 08:45-0500 Diastolic blood pressure 95 mm[Hg] Bill NILL [facility] 04-18-2022 08:45-0500 Heart rate 85 /min Bill NILL [facility] 04-18-2022 08:45-0500 Mean blood pressure 107 mm[Hg] Bill N[facility] 04-18-2022 08:45-0500 Respiratory rate 19 /min Bill NILL [facility] 04-18-2022 08:45-0500 SaO2% (BldA) [Mass fraction] 94 % Bill N[facility] 04-18-2022 08:45-0500 Systolic blood pressure 131 mm[Hg] Bill N[facility] 04-18-2022 08:40-0500 Blood Pressure Location Bill NILL [facility] 04-18-2022 08:40-0500 Diastolic blood pressure 91 mm[Hg] Bill N[facility] 04-18-2022 08:40-0500 Heart rate 81 /min Bill N[facility] 04-18-2022 08:40-0500 Mean blood pressure 104 mm[Hg] Bill N[facility] 04-18-2022 08:40-0500 Respiratory rate 19 /min Bill NILL [facility] 04-18-2022 08:40-0500 SaO2% (BldA) [Mass fraction] 97 % Bill N[facility] 04-18-2022 08:40-0500 Systolic blood pressure 130 mm[Hg] Bill N[facility] 04-18-2022 08:28-0500 Body temperature 98.24 [degF] Bill N[facility] 04-18-2022 07:55-0500 Respiratory rate 1 /min Bill NILL [facility] 04-18-2022 07:11-0500 Body temperature 98.6 [degF] Bill NILL [facility] 04-10-2022 16:00-0500 Body height 168.91 cm Vijay Ball Other [employer] Other 04-10-2022 16:00-0500 Body mass index (BMI) [Ratio] 21.33 kg/m2 Vijay Ball Other [employer] Other 04-10-2022 16:00-0500 Body weight 60.87 kg Vijay Ball Other [employer] Other 04-10-2022 16:00-0500 Diastolic blood pressure 82 mm[Hg] Vijay Ball Other [employer] Other 04-10-2022 16:00-0500 Respiratory rate 12 /min Vijay Ball Other [employer] Other 04-10-2022 16:00-0500 Systolic blood pressure 122 mm[Hg] Vijay Waspit Other [employer] Other 03-25-2022 09:01-0500 Blood Pressure Location Bill FERNANDOL [facility] 03-25-2022 09:01-0500 Diastolic blood pressure 93 mm[Hg] Bill KINGL [facility] 03-25-2022 09:01-0500 Heart rate 89 /min Bill KINGL [facility] 03-25-2022 09:01-0500 Respiratory rate 16 /min Bill KINGL [facility] 03-25-2022 09:01-0500 Systolic blood pressure 138 mm[Hg] Bill KINGL [facility] Encounters Encounter Date Encounter Type Care Provider Facility Start: 11-14-2024 End: 11-14-2024 Patient encounter status Valentin Bailon MD Work Phone: [facility] Start: 11-14-2024 End: 11-14-2024 Patient encounter procedure Pulm Fct Lab Main 6 Addon Work Phone: Pulmonary Medicine Comment on above: Spirometry Nonspecific abnormal finding on cardiac evaluation (Primary Dx); Diverticulitis Chronic obstructive pulmonary disease, unspecified COPD type (HCC) (Primary Dx); Encounter for preprocedural respiratory examination; Heart failure with reduced ejection fraction (HCC) Start: 11-14-2024 End: 11-14-2024 ambulatory UMUR BEATRICEOGLU Facility:[facility] Start: 11-14-2024 End: 11-14-2024 Subsequent hospital visit by physician Xr Chest Main A21 Radiology Comment on above: Shortness of breath [R06.02] Start: 11-14-2024 End: 11-14-2024 Subsequent hospital visit by physician Bridgette Shaver MD Work Phone: Gastroenterology Comment on above: Diverticulitis [K57. 92] Start: 11-14-2024 End: 11-14-2024 ambulatory BRIDGETTE SHAVER Facility:[facility] Start: 11-14-2024 End: 11-14-2024 ambulatory Shantell WELLS Facility:[facility] Start: 11-07-2024 End: 11-07-2024 ambulatory Carolyn Houston RN Gastroenterology Start: 10-25-2024 End: 10-25-2024 ambulatory Vijay Lozano DO Work Phone: [facility] Work Phone: Start: 10-25-2024 End: 10-25-2024 Patient encounter procedure Vijay Lozano DO -[facility] Work Phone: Start: 10-24-2024 End: 10-24-2024 Telephone encounter Jennifer Garcia RN [facility] Comment on above: Appointment Start: 10-21-2024 End: 10-21-2024 Admission to same day surgery center I Cyndi Wells MD Work Phone: Colorectal Surgery 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 Start: 10-21-2024 End: 10-21-2024 ambulatory I Cyndi Wells MD Work Phone: Colorectal Surgery Start: 10-17-2024 End: 10-17-2024 Bamboo flowsheet Juan Diego Haywood DPM Work Phone: [facility] Start: 10-17-2024 End: 10-17-2024 Bamboo flowsheet Juan Diego Haywood DPM Work Phone: [facility] Start: 10-17-2024 End: 10-17-2024 ambulatory JUAN DIEGO HAYWOOD Not Available Start: 10-13-2024 End: 10-14-2024 Orders Only Stephenie Brown-Joao FERNANDES.WILDLIFE ECOLOGIST Work Phone: Colorectal Surgery Comment on above: Diverticulitis (Prim jen Dx); Screening for malignant neoplasm of colon Start: 10-12-2024 End: 10-12-2024 Admission to same day surgery center I Cyndi Wells MD Work Phone: Colorectal Surgery Start: 10-12-2024 End: 10-12-2024 Patient encounter procedure I Cyndi Wells MD Work Phone: Colorectal Surgery Comment on above: Diverticulitis (Prim jen Dx) Start: 10-12-2024 End: 10-12-2024 ambulatory I Cyndi Wells MD Work Phone: Colorectal Surgery Start: 10-05-2024 End: 10-05-2024 External Result Encounter Juan Diego DELATORREM Work Phone: [facility] Unsolicited Start: 10-05-2024 End: 10-05-2024 External Result Encounter Juan Diego Haywood DPM Work Phone: [facility] Unsolicited Start: 10-04-2024 End: 10-07-2024 Evaluation and management of inpatient Navarro Ballesteros DO -[facility] Work Phone: Start: 10-03-2024 End: 10-03-2024 Office outpatient visit 15 minutes Ines Wayne MD Work Phone: [facility] Comment on above: Hypertrophic granula tion tissue (Primary Dx); Diverticulitis of large intestine with perforation and abscess without bleeding Start: 10-03-2024 End: 10-03-2024 ambulatory INES WAYNE V Not Available Start: 09-14-2024 End: 09-14-2024 Office outpatient visit 15 minutes Ines Wayne MD Work Phone: [facility] Comment on above: Diverticulitis of la rge intestine with perforation and abscess without bleeding (Primary Dx) Start: 09-14-2024 End: 09-14-2024 ambulatory INES WAYNE V Not Available Start: 09-08-2024 End: 09-08-2024 Patient encounter procedure Ines Wayne MD -CT Scan [facility] Work Phone: Start: 09-08-2024 End: 09-08-2024 ambulatory Ines Wayne Facility:[facility] Start: 09-08-2024 End: 09-08-2024 Patient encounter procedure Vijay Lozano DO -[facility] Work Phone: Start: 08-31-2024 End: 08-31-2024 Office outpatient visit 15 minutes Ines Wayne MD Work Phone: [employer] Comment on above: Diverticulitis of la rge intestine with perforation and abscess without bleeding (Primary Dx); Colonic diverticular abscess Start: 08-31-2024 End: 08-31-2024 ambulatory INES WAYNE V Not Available Start: 08-29-2024 End: 08-29-2024 Postop follow up visit related to original px Nikolas Blanton DO Work Phone: [facility] Comment on above: Diverticulitis of la rge intestine with perforation and abscess without bleeding Start: 08-29-2024 End: 08-29-2024 ambulatory NIKOLAS H ITZMOWITZ Not Available Start: 08-25-2024 Non-patient / Non-visit Radha Dejesus SOCIAL WORK ASSOCIATE -[facility] Work Phone: Start: 08-21-2024 End: 08-24-2024 Evaluation and management of inpatient Vijay Ball DO Work Phone: [facility] Work Phone: Start: 08-01-2024 End: 08-01-2024 ambulatory [facility] Start: 04-10-2024 End: 04-10-2024 ambulatory [facility] Work Phone: Start: 04-10-2024 End: 04-10-2024 Patient encounter procedure [facility] Work Phone: Start: 03-03-2024 End: 03-03-2024 ambulatory [facility] Start: 09-07-2023 End: 09-07-2023 ambulatory [facility] Start: 04-10-2023 End: 04-10-2023 ambulatory Vijay Ball Other [employer] Other Start: 04-10-2023 Telephone encounter Vijay Ball [facility] Start: 05-16-2022 End: 05-16-2022 ambulatory Vijay Ball Other [employer] Other Start: 05-16-2022 Telephone encounter Vijay Ball FP [facility] Start: 05-08-2022 End: 05-08-2022 ambulatory Vijay Ball Other [employer] Other Start: 05-08-2022 Telephone encounter Vijay Ball FP [facility] Start: 05-02-2022 End: 05-02-2022 ambulatory Vijay Ball Other [employer] Other Start: 05-02-2022 Telephone encounter Vijay Ball FP [facility] Start: 04-24-2022 End: 04-24-2022 ambulatory Vijay Ball Other [employer] Other Start: 04-24-2022 Telephone encounter Vijay CORDOVA [facility] Start: 04-22-2022 End: 04-23-[address] VIJAY LOZANO Facility:[facility] Start: 04-18-2022 End: 04-19-2022 ambulatory Bill CORCORAN Facility:[facility] Start: 04-18-2022 End: 04-18-2022 Patient encounter procedure Bill R NILL [facility] Start: 04-11-2022 End: 07-11-2022 ambulatory Bill CORCORAN Facility:[facility] Start: 04-10-2022 End: 04-11-[address] VIJAY LOZANO [facility] [employer] Other Start: 04-10-2022 Office outpatient vi sit 15 minutes Vijay SANDERS [facility] Start: 04-10-2022 Telephone encounter Vijay Rich [facility] Start: 04-07-2022 End: 04-08-[address] VIJAY LOZANO Facility:[facility] Start: 03-28-2022 End: 03-28-2022 ambulatory Sonny Pate Other [employer] Other Start: 03-28-2022 Telephone encounter Sonny [facility] [place] [facility] Start: 03-27-2022 End: 03-27-2022 ambulatory Vijay Lozano Other [employer] Other Start: 03-27-2022 Telephone encounter Vijay [facility] Start: 03-25-2022 End: 07-10-2022 Recurring Bill CORCORAN [facility] Start: 03-25-2022 End: 03-25-2022 Patient encounter procedure Bill R NILL [facility] Start: 02-04-2022 Encounter for genera l adult medical examination without abnormal findings DR VIJAY LOZANO [facility] Start: 02-01-2022 End: 02-02-[address] VIJAY LOZANO Facility:[facility] Start: 02-01-2022 End: 02-02-2022 Encounter for general adult medical examination without abnormal findings DR VIJAY LOZANO Facility:[facility] Start: 01-28-2022 Adult health examination Vijay Lozano Other [employer] Other Procedures Date Procedure Procedure Detail Performing Clinician Start: 11-14-2024 Brncdilat rspse spmt ry pre&post-brncdilat admn Valentin Bailon MD Work Phone: Start: 11-14-2024 Radiologic exam ches t 2 views Valentin Bailon MD Work Phone: Start: 11-14-2024 Colonoscopy flx dx w /collj spec when pfrmd Stephenie Kitty Brown-Joao STOKER MECHANIC.WILDLIFE ECOLOGIST Work Phone: Start: 11-14-2024 Antibody screen DAWOOD SHAVER Comment on above: Order Comment: Speci men Type: BLOOD SPECIMEN Ordering Facility: [facility] Address: [address] [place] [address] Performed By: #### T [id number] #### [facility] CLIA [id number] [address] [place] [address] [place] Start: 11-14-2024 Colonoscopy Pulm Addon Work Phone: Start: 10-05-2024 Assay of blood/uric acid Juan Diego Haywood DPM Work Phone: Start: 10-04-2024 Computed tomography of abdomen and pelvis with contrast Vijay Lozano DO Work Phone: Start: 10-04-2024 X-ray of right foot Alfredo Lozano DO Work Phone: Start: 10-04-2024 Aerobic microbial culture Vijay Lozano DO Work Phone: Start: 10-04-2024 Bacteria identified in Blood by Culture Vijay Lozano DO Work Phone: Start: 09-08-2024 Computed tomography of abdomen and pelvis with contrast Vijay Lozano DO Work Phone: Start: 08-22-2024 Aerobic microbial culture Vijay Lozano DO Work Phone: Start: 08-22-2024 Anaerobic microbial culture Vijay Lozano DO Work Phone: Start: 08-22-2024 Gram stain microscopy B enjakriss Lozano DO Work Phone: Start: 08-22-2024 CT guided percutaneo us therapeutic drainage Vijay Lozano DO Work Phone: Start: 08-22-2024 Computerized tomogra phy guidance Vijay Lozano DO Work Phone: Start: 08-21-2024 CT of abdomen and pe lvis without contrast Vijay Lozano DO Work Phone: Start: 04-18-2022 Colonoscopy Bill NI LL Start: 02-01-[address] LARSON IN [place] Comment on above: Performed By: #### P SAS #### [facility] [address] [place] [address] Dr. Luisana Ramachandran Start: 06-05-2018 Screening for malign ant neoplasm of colon Vijay Lozano Other Start: 02-06-2015 General examination of patient Vijay Lozano Other Depression screening Mary Lou Lozano Other Repair of right ingu inal hernia Bill FERNANDOL Screening for malign ant neoplasm of prostate Vijay Lozano Other Plan of Treatment Date Care Activity Detail Author Start: 2034 RSV Vaccine (1 - 1-dose 75+ series) RSV Vaccine (1 - 1-dose 75+ series) [facility] Start: 11-15-2027 Diabetes Screening Diabetes Screening [facility] Start: 11-14-2025 Screening for malignant neoplasm of colon [facility] Start: 04-03-2025 End: 04-03-2025 ambulatory Pulmonary Medicine Comment on above: Chronic obstructive pulmonary disease, u nspecified COPD type (HCC) [J44.9] Start: 04-03-2025 End: 04-03-2025 Patient encounter procedure Pulmonary Medicine Comment on above: Chronic obstructive pulmonary disease, u nspecified COPD type (HCC) [J44.9] Follow up 4 months Start: 02-25-2025 Screening for malignant neoplasm of colon [facility] Start: 01-04-2025 End: 01-04-2025 Patient encounter procedure 01/04/2025 8:15 AM EDT Office Visit Cardiology [address] [id number] Gio Overton MD [address] [place] [address] DX PRE OP //CARDIAC EVALUTION Cardiology Comment on above: DX PRE OP //CARDIAC EVALUTION Start: 01-04-2025 End: 01-04-2025 ambulatory 01/04/2025 7:15 AM EDT Procedure Cardiology [address] [place] [address] DX PRE OP //CARDIAC EVALUTION Cardiology Comment on above: DX PRE OP //CARDIAC EVALUTION Start: 12-06-2024 End: 12-06-2024 Admission to same day surgery center 12/06/2024 9:01 AM EDT - 12/06/2024 1:21 PM EDT Surgery Admitting [address] [place] [address] Shantell Wells MD [address] [place] [address] ROBOTIC LAPAROSCOPIC COLECTOMY SIGMOID COLON W/ COLORECTAL ANASTOMOSIS Admitting Comment on above: ROBOTIC LAPAROSCOPIC COLECTOMY SIGMOID C OLON W/ COLORECTAL ANASTOMOSIS Start: 12-06-2024 End: 12-06-2024 Laparoscopy colectomy partial w/anastomosis ROBOTIC LAPAROSCOPIC COLECTOMY SIGMOID COLON W/ COLORECTAL ANASTOMOSIS Diverticulitis 12/06/2024 9:01 AM EDT [facility] Start: 12-06-2024 Subsequent hospital visit by physician 12/06/2024 9:01 AM EDT Hospital Encounter Admitting [address] [place] [address] Shantell Wells MD [address] [address] Diverticulitis [K57.92] Admitting Comment on above: Diverticulitis [K57.92] Start: 12-06-2024 End: 12-06-2024 Admission to same day surgery center 12/06/2024 7:30 AM EDT - 12/06/2024 11:35 AM EDT Surgery Admitting [address] [id number] Shantell Wells MD [address] [id number] ROBOTIC LAPAROSCOPIC COLECTOMY SIGMOID COLON W/ COLORECTAL ANASTOMOSIS Admitting Comment on above: ROBOTIC LAPAROSCOPIC COLECTOMY SIGMOID C OLON W/ COLORECTAL ANASTOMOSIS Start: 12-06-2024 End: 12-06-2024 Laparoscopy colectomy partial w/anastomosis ROBOTIC LAPAROSCOPIC COLECTOMY SIGMOID COLON W/ COLORECTAL ANASTOMOSIS Diverticulitis 12/06/2024 7:30 AM EDT [facility] Start: 12-06-2024 Subsequent hospital visit by physician 12/06/2024 7:30 AM EDT Hospital Encounter Admitting [address] [place] [address] Shantell Wells [facility] [address] [facility] [address] [id number] Diverticulitis [K57.92] Admitting Comment on above: Diverticulitis [K57.92] Start: 11-21-2024 Influenza vaccination Influenza Vaccine (#1) [facility] Start: 11-14-2024 End: 02-13-2025 ALPHA 1 ANTITRYP PHEN/GENOTYPE ALPHA 1 ANTITRYP PHEN/GENOTYPE Lab Routine Chronic obstructive pulmonary disease, unspecified COPD type (HCC) Expected: 11/14/2024, Expires: 02/13/2025 [facility] Comment on above: Expected: 11/14/2024, Expires: Start: 11-14-2024 End: 02-13-2025 CBC panel - Blood by Automated count COMPLETE BLOOD COUNT Lab Routine Diverticulitis Expected: 11/14/2024 (Approximate), Expires: 02/13/2025 [facility] Work Phone: Comment on above: Expected: 11/14/2024 (Approximate), Expi res: 02/13/2025 Start: 11-14-2024 End: 02-13-2025 Comprehensive metabolic 2000 panel - Serum or Plasma COMPREHENSIVE METABOLIC PANEL Lab Routine Diverticulitis Expected: 11/14/2024, Expires: 02/13/2025 [facility] Comment on above: Expected: 11/14/2024, Expires: Start: 11-14-2024 End: 02-13-2025 CONFIRM BLOOD TYPE CONFIRM BLOOD TYPE Blood Bank Routine Diverticulitis Expected: 11/14/2024, Expires: 02/13/2025 [facility] Comment on above: Expected: 11/14/2024, Expires: Start: 11-14-2024 End: 02-13-2025 TYPE AND SCREEN,30 DAY TYPE AND SCREEN,30 DAY Blood Bank Routine Diverticulitis Expected: 11/14/2024, Expires: 02/13/2025 [facility] Comment on above: Expected: 11/14/2024, Expires: Start: 11-14-2024 End: 11-14-2024 Patient encounter procedure Radiology Comment on above: Congestive heart failure, unspecified HF chronicity, unspecified heart failure t... Start: 11-14-2024 End: 11-14-2024 Patient encounter procedure 11/14/2024 10:45 AM EDT Appointment Gastroenterology [address] [phone] Diverticulitis [K57.92] Gastroenterology Comment on above: Diverticulitis [K57.92] Start: 11-14-2024 End: 11-14-2024 ambulatory 11/14/2024 9:10 AM EDT Procedure Cardiology [address] [address] Diverticulitis [K57.92] Cardiology Comment on above: Diverticulitis [K57.92] Start: 11-14-2024 End: 11-14-2024 Patient encounter procedure Admitting Comment on above: preop Congestive heart dharmesh lure, unspecified HF chronicity, unspecified heart failure t... Diverticulitis [K57. 92] Start: 11-14-2024 End: 11-14-2024 Anesthesia consultation 11/14/2024 8:00 AM EDT PAT Pre Anesthesia [address] [place] [address] 2, Pacc Main [address] [place] [address] preop Pre Anesthesia Comment on above: preop Start: 10-31-2024 End: 10-31-2024 Patient encounter procedure 10/31/2024 12:30 PM EDT Appointment [facility] [address] [place] [address] [facility] Start: 10-22-2024 End: 10-22-2024 Anesthesia consultation 10/22/2024 11:59 PM EDT Anesthesia Event [address] [place] [address] Reddy Rees APRN.CRNA [facility] Endoscopy [facility] Start: 10-17-2024 End: 10-17-2024 Patient encounter procedure 10/17/2024 9:45 AM EDT Office Visit [facility] [address] [phone] Ines Wayne MD [address] [facility] [address] [facility] Start: 10-14-2024 [facility] Start: 10-13-2024 [facility] Start: 10-12-2024 End: 10-12-2024 Patient encounter procedure 10/12/2024 9:45 AM EDT Office Visit [facility] [address] [phone] Ines Wayne MD 703 [facility] [address] [place] [address] [address] [facility] Start: 10-12-2024 [facility] Start: 10-11-2024 [facility] Start: 10-10-2024 [facility] Start: 10-09-2024 [facility] Start: 10-08-2024 [facility] Start: 10-07-2024 End: 10-07-2024 [facility] Start: 10-06-2024 End: 10-06-2024 [facility] Start: 10-05-2024 CT guided percutaneous therapeutic drainage [facility] Start: 10-05-2024 [facility] Start: 10-04-2024 Referral to installation coordinator [facility] Start: 10-04-2024 Hospital admission [facility] Start: 10-04-2024 Referral to general surgeon [facility] Start: 10-04-2024 [facility] Start: 10-04-2024 End: 10-04-2024 [facility] Start: 10-04-2024 Bacteria identified in Blood by Culture Blood Culture [facility] Start: 10-04-2024 Superficial Wound Culture Superficial Wound Culture [facility] Start: 09-14-2024 End: 09-14-2024 Patient encounter procedure 09/14/2024 11:15 AM EDT Office Visit [facility] [address] [phone] Ines Wayne MD 703 [facility] [address] [place] [address] [facility] [address] [facility] Start: 08-31-2024 End: 08-31-2025 Creatinine [Mass/volume] in Serum or Plasma Creatinine, Serum Lab Routine Diverticulitis of large intestine with perforation and abscess without bleeding Colonic diverticular abscess Expected: 08/31/2024 (Approximate), Expires: 08/31/2025 [facility] Comment on above: Expected: 08/31/2024 (Approximate), Expi res: 08/31/2025 Start: 08-31-2024 End: 08-31-2025 CT Abdomen and Pelvis W contrast IV CT abdomen pelvis w IV contrast Imaging Routine Diverticulitis of large intestine with perforation and abscess without bleeding Colonic diverticular abscess Expected: 08/31/2024, Expires: 08/31/2025 [facility] Work Phone: Comment on above: Expected: 08/31/2024, Expires: Start: 08-31-2024 End: 08-31-2024 Patient encounter procedure 08/31/2024 10:15 AM EDT Office Visit [facility] [address] [place] [phone] Ines Wayne MD [address] [place] [address] [address] [facility] Start: 08-24-2024 [facility] Start: 08-22-2024 [facility] Start: 08-22-2024 Aerobic microbial culture Aerobic Culture [facility] Start: 08-22-2024 Anaerobic microbial culture Anaerobic Culture [facility] Start: 08-21-2024 Referral to general surgeon [facility] Start: 08-21-2024 Drainage of Left Inguinal Region with Drainage Device, Percutaneous Approach Drainage of Left Inguinal Region with Drainage Device, Percutaneous Approach [facility] Start: 08-21-2024 Hospital admission [facility] Start: 08-21-2024 [facility] Start: 2024 Advance Directive Discussion Advance Directive Discussion [facility] Start: 03-23-2024 Medicare Advantage Annual Wellness Visit Medicare Advantage Annual Wellness Visit [facility] Start: 2019 RSV Vaccine (1 - Risk 60-74 years 1-dose series) RSV Vaccine (1 - Risk 60-74 years 1-dose series) [facility] Start: 2009 Pneumococcal Vaccine: 50+ (1 of 1 - PCV) Pneumococcal Vaccine: 50+ (1 of 1 - PCV) [facility] Start: 2009 Screening for malignant neoplasm of lung Lung Cancer Screening [facility] Start: 2009 Shingrix Vaccine (1 of 2) Shingrix Vaccine (1 of 2) [facility] Start: 2004 Diabetes Screening Diabetes Screening [facility] Start: 2004 Prostate specific antigen measurement Prostate Cancer Screening Discussion [facility] Start: 2004 Screening for malignant neoplasm of colon [facility] Start: 1994 Lipid panel Lipid Screening [facility] Start: 1978 Pneumococcal Vaccine: 50+ (1 of 2 - PCV) Pneumococcal Vaccine: 50+ (1 of 2 - PCV) [facility] Start: 1978 Urine microalbumin profile DTaP,Tdap,Td Vaccine (1 - Tdap) [facility] Start: 1977 Annual PCP Team Chronic Disease Visit Annual PCP Team Chronic Disease Visit [facility] Start: 1977 Anxiety Screening Anxiety Screening [facility] Start: 1977 Depression Screening Depression Screening [facility] Start: 1977 Hepatitis B surface antibody level LDL Cholesterol [facility] Start: 1977 Hepatitis C screening Hepatitis C Screening [facility] Start: 1977 HIV screening HIV Screening [facility] Start: 1959 Abdominal aortic aneurysm screening Abdominal Aortic Aneurysm Screening [facility] End: 12-14-2025 ARTERIAL BLOOD GAS, ROOM AIR ARTERIAL BLOOD GAS, ROOM AIR PFT Routine Chronic obstructive pulmonary disease, unspecified COPD type (HCC) 1 Occurrences starting 11/14/2024 until 12/14/2025 [facility] Comment on above: 1 Occurrences starting 11/14/2024 until 12/14/2025 Bacteria identified in Unspecified specimen by Aerobe culture [facility] End: 10-12-2025 ECG COMPLETE ECG COMPLETE ECG Routine Diverticulitis 1 Occurrences starting 10/12/2024 until 10/12/2025 [facility] Comment on above: 1 Occurrences starting 10/12/2024 until 10/12/2025 End: 11-14-2025 ECG COMPLETE ECG COMPLETE ECG Routine Nonspecific abnormal finding on cardiac evaluation 1 Occurrences starting 11/14/2024 until 11/14/2025 [facility] Work Phone: Comment on above: 1 Occurrences starting 11/14/2024 until 11/14/2025 End: 11-14-2025 Flexible sigmoidoscopy study COLONOSCOPY DIAGNOSTIC Endoscopy Routine Diverticulitis 1 Occurrences starting 11/14/2024 until 11/14/2025 [facility] Work Phone: Comment on above: 1 Occurrences starting 11/14/2024 until 11/14/2025 End: 12-14-2025 LUNG DIFFUSION CAPACITY (DLCO) LUNG DIFFUSION CAPACITY (DLCO) PFT Routine Chronic obstructive pulmonary disease, unspecified COPD type (HCC) 1 Occurrences starting 11/14/2024 until 12/14/2025 [facility] Comment on above: 1 Occurrences starting 11/14/2024 until 12/14/2025 End: 12-14-2025 LUNG VOLUMES LUNG VOLUMES PFT Routine Chronic obstructive pulmonary disease, unspecified COPD type (HCC) 1 Occurrences starting 11/14/2024 until 12/14/2025 [facility] Comment on above: 1 Occurrences starting 11/14/2024 until 12/14/2025 Patient Education [facility] Work Phone: Patient referral [facility] Work Phone: REFER FOR ADMIT INTERVIEW REFER FOR ADMIT INTERVIEW Procedures Routine Diverticulitis Ordered: 10/12/2024 [facility] Comment on above: Ordered: 10/12/2024 End: 10-13-2025 Screening colonoscopy [facility] Work Phone: Comment on above: 1 Occurrences starting 10/13/2024 until 10/13/2025 1 Occurrences starti ng 10/14/2024 until 10/13/2025 End: 12-14-2025 SIX MINUTE WALK SIX MINUTE WALK PFT Routine Chronic obstructive pulmonary disease, unspecified COPD type (HCC) 1 Occurrences starting 11/14/2024 until 12/14/2025 [facility] Comment on above: 1 Occurrences starting 11/14/2024 until 12/14/2025 End: 12-14-2025 SPIROMETRY BASELINE ONLY SPIROMETRY BASELINE ONLY PFT Routine Chronic obstructive pulmonary disease, unspecified COPD type (HCC) 1 Occurrences starting 11/14/2024 until 12/14/2025 [facility] Work Phone: Comment on above: 1 Occurrences starting 11/14/2024 until 12/14/2025 SPIROMETRY WITH DILATOR IF OBSTRUCTED SPIROMETRY WITH DILATOR IF OBSTRUCTED PFT Routine Shortness of breath 11/14/2024 2:17 PM EDT [facility] Work Phone: [facility] Immunizations Immunization Date Immunization Notes Care Provider Amy hernandez 01-12-2002 hepatitis B vaccine, adult dosage Vijay Lozano Other [facility] 10-15-2001 hepatitis B vaccine, adult dosage Vijay Lozano Other [facility] 06-16-2001 hepatitis B vaccine, adult dosage Vijay Lozano Other [facility] Payers Date Payer Category Payer Medicare [id number] 2024 Self-pay 2024 Medicare (Managed Care) [id number]. [id number] 2024 Medicare [id number] 1959 Unknown [id number] 2.16.84 [id number] 1959 Unknown [id number] 2.16.84 [id number] 1959 Unknown [id number] 2.16.84 [id number] 1959 Unknown [id number] 2.16.84 [id number] 1959 Unknown [id number] 2.16.8 40.1.456664.3.579.2.727 1959 Unknown [id number] 2.16.8 [id number] 1959 Unknown [id number] 2.16.8 [id number] 1959 Unknown [id number] 2.16.8 40.1.817400.3.579.2.1259 1959 Unknown [id number] 2.16.8 40.1.534113.3.579.2.1259 1959 Unknown [id number] 2.16.8 40.1.966521.3.579.2.1259 1959 Unknown [id number] 2.16.8 40.1.665409.3.579.2.1259 1959 Unknown [id number] 2.16.8 [id number] 1959 Unknown [id number] Unknown [id number] 2.16.8 40.1.808965.3.579.2.531 Unknown [id number] 2.16.8 [id number] Unknown [id number] 2.16.8 [id number] Social History Date Type Detail Facility Start: 03-25-2022 Tobacco smoking status Heavy t obacco smoker (finding) [facility] Start: 10-05-2024 Tobacco smoking status Never [facility] Start: 08-29-2024 End: 10-12-2024 Sex Assigned At Male [facility] Start: 11-26-1976 End: 11-27-2023 Tobacco smoking status NHIS Smoker (finding) [facility] Start: 04-10-2024 End: 08-24-2024 Sex Male (finding) [facility] Start: 1960 Sex Assigned At Male F [facility] Start: 08-21-2024 Tobacco smoking stat us PRIS Never smoked tobacco (finding) [facility] Start: 08-21-2024 End: 11-14-2024 Tobacco smoking status NHIS Ex-smoker (finding) [facility] Start: 08-22-2024 End: 10-05-2024 SDOH Follow up SDOH Follow up [facility] Work Phone: Start: 11-26-1976 End: 11-27-2023 History of tobacco use Cigarette Smoker [facility] Start: 08-29-2024 End: 09-14-2024 Alcoholic beverage intake Current drinker of alcohol (finding) [facility] Start: 08-29-2024 End: 10-12-2024 History of Social function [facility] Start: 1960 Sex assigned at Not on file N [facility] Start: 10-12-2024 End: 11-14-2024 Tobacco use and exposure Smokeless tobacco non-user [facility] Start: 10-12-2024 End: 11-14-2024 Alcoholic beverage intake Ex-drinker (finding) [facility] History of tobacco use Passive smoker [facility] Goals Date Patient Goal Desired Activity /State Personal health goal Personal health goal Functional Status Date Assessment Result Facility 10-07-2024 Functional status Patient at [facility] Work Phone: 08-24-2024 Functional status Patient at [facility] Work Phone: 04-18-2022 Functional Status N/A [facility] 03-25-2022 Functional Status N/A [facility] [place] Mental Status Date Assessment Result Facility 10-07-2024 Cognitive function Cognitive Sta tus Patient at [facility] Work Phone: 08-24-2024 Cognitive function Cognitive Sta tus Patient at [facility] Work Phone: Clinical Notes 04-10-2022 to 11-14-2024 Patient InstructionsValentin Bailon MD - 11/14/2024 3:08 PM Valentin Moran MD - 11/14/2024 3:08 PM Janine Babcock Tech - 11/14/2024 1:20 PM Juana Clayton RN - 11/14/2024 12:44 PM EDT Note Date & Type Note Facility 11-14-2024 Instructions Valentin Bailon MD - 11/14/2024 3:40 PM EDT We discussed your upcoming surgery for a colonic abscess: - You are scheduled for surgery on December [address] Wells. The procedure will likely involve a robotic [...] your surgery. A stress test has been ordered, and your non destructive testing supervisor will oversee this. If you do not yet have an appointment, please follow up to ensure this is scheduled. We discussed additional testing: [...] breathing, which traps more air in your lungs. Managing anxiety may help improve your breathing. Follow-up [...] have further questions. documented in this encounter [facility] 11-14-2024 History and physical note Extended HPI: Domo Piña is a 64-year-old male, with a history of diverticulitis, presenting for preoperative evaluation prior to a scheduled colonic abscess surgery on 12/07/2023. Domo has a history of a colonic abscess secondary to diverticulitis, which has necessitated two hospitalizations within the past month. A drain was placed during the initial hospitalization, but it was removed due to minimal drainage. Domo continues to experience drainage from the abscess. He is scheduled for surgery on 12/07/2023, but the extent of the surgery (total or partial colectomy) is yet to be determined. A colonoscopy performed earlier today was incomplete due to a kink in the colon, necessitating a repeat procedure under general anesthesia. Domo has a significant smoking history, having smoked [...] apnea, chest surgery, or the use of non-invasive ventilation. Domo has a history of congestive heart failure, with a left ventricular ejection fraction of 45-50% as of 08/11/2023. He reports no chest pain or angina. He is currently without a non destructive testing supervisor but has been referred to one by a PA earlier today. 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 Cauliflower [...] Confirmed referral to cardiology for further assessment. Valentin Bailon MD [facility] [1] Social History Tobacco Use Smoking status: Former Current packs/day: 0.00 Average packs/day: 1 pack/day for 47.0 years (47.0 ttl pk-yrs) Types: Cigarettes Start date: 11/26/1976 Quit date: 11/27/2023 Years since quittin.9 Passive exposure: Past Smokeless tobacco: Never Vaping Use Vaping status: Never Used Substance Use Topics Alcohol use: Not Currently Drug use: Not Currently [facility] 11-14-2024 History and physical note Extended HPI: Domo Piña is a 64-year-old male, with a history of diverticulitis, presenting for preoperative evaluation prior to a scheduled colonic abscess surgery on 12/07/2023. Domo has a history of a colonic abscess secondary to diverticulitis, which has necessitated two hospitalizations within the past month. A drain was placed during the initial hospitalization, but it was removed due to minimal drainage. Domo continues to experience drainage from the abscess. He is scheduled for surgery on 12/07/2023, but the extent of the surgery (total or partial colectomy) is yet to be determined. A colonoscopy performed earlier today was incomplete due to a kink in the colon, necessitating a repeat procedure under general anesthesia. Domo has a significant smoking history, having smoked [...] apnea, chest surgery, or the use of non-invasive ventilation. Domo has a history of congestive heart failure, with a left ventricular ejection fraction of 45-50% as of 08/11/2023. He reports no chest pain or angina. He is currently without a non destructive testing supervisor but has been referred to one by a PA earlier today. 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 Cauliflower [...] Chronic obstructive pulmonary disease, unspecified COPD type ([facility]) (J44.9) Severe COPD (Stage 3) confirmed by [...] Confirmed referral to cardiology for further assessment. Valentin Bailon MD Res[facility] [1] Social History Tobacco Use Smoking status: Former Current packs/day: 0.00 Average packs/day: 1 pack/day for 47.0 years (47.0 ttl pk-yrs) Types: Cigarettes Start date: 11/26/1976 Quit date: 11/27/2023 Years since quittin.9 Passive exposure: Past Smokeless tobacco: Never Vaping Use Vaping status: Never Used Substance Use Topics Alcohol use: Not Currently Drug use: Not Currently documented in this encounter [facility] 11-14-2024 History of Present illness Narrative Radiology Service Progress Note PATIENT NAME: Domo Piña DATE OF SERVICE: November 14, 2024 TIME: 1:58 PM PATIENT IDENTITY VERIFICATION COMPLETED USING TWO (2) IDENTIFIERS: Name and Date of confirmed by patient verbally. FALL SCREENING: Has the patient had 2 falls in the last year or 1 fall with injury or currently using an Ambulatory Assistive Device (Walker, Cane, Wheelchair, Crutches, etc.)? No PATIENT GENDER DATA: Assigned male at PATIENT RELEVANT IMPLANT DATA REVIEWED: Not Applicable PATIENT PRESENTS WITH AN IMPLANTABLE OR ATTACHED ACCOUNT SERVICES ASSOCIATE: No RADIOLOGY DEPARTMENT: General X-ray: Exam(s) Completed: Chest X-Ray PERIPHERAL IV DATA: Not applicable SIGNED BY: Heriberto Abreu November 14, 2024 1:58 PM documented in this encounter [facility] 11-14-2024 Note HNO ID: [id number] Author: JANINE CHANCE Tech Service: ? Author Type: Production Line Mechanic Type: Progress Notes Filed: 11/14/2024 13:59 Note Text: Radiology Service Progress Note PATIENT NAME: Domo Piña DATE OF SERVICE: November 14, 2024 TIME: 1:58 PM PATIENT IDENTITY VERIFICATION COMPLETED USING TWO (2) IDENTIFIERS: Name and Date of confirmed by patient verbally. FALL SCREENING: Has the patient had 2 falls in the last year or 1 fall with injury or currently using an Ambulatory Assistive Device (Walker, Cane, Wheelchair, Crutches, etc.)? No PATIENT GENDER DATA: Assigned male at PATIENT RELEVANT IMPLANT DATA REVIEWED: Not Applicable PATIENT PRESENTS WITH AN IMPLANTABLE OR ATTACHED ACCOUNT SERVICES ASSOCIATE: No RADIOLOGY DEPARTMENT: General X-ray: Exam(s) Completed: Chest X-Ray PERIPHERAL IV DATA: Not applicable SIGNED BY: Heriberto Abreu November 14, 2024 1:58 PM [facility] 11-14-2024 Nurse Note AMBULATORY PATIENT EDUCATION NOTE TOPIC: GI PROCEDURES: [...] / FAMILY RESPONSE: Verbalizes understanding of: WORSENING CONDITION-Signs and symptoms of a worsening condition that warrant a call to the physician FOLLOW-UP PLAN: Complete - No need for follow-up SUPPLEMENTAL MATERIAL: Procedure Discharge Instructions REFERRAL (RECOMMENDATION): None [facility] 11-14-2024 Nurse Note AMBULATORY PATIENT EDUCATION NOTE TOPIC: GI PROCEDURES: [...] / FAMILY RESPONSE: Verbalizes understanding of: WORSENING CONDITION-Signs and symptoms of a worsening condition that warrant a call to the physician FOLLOW-UP PLAN: Complete - No need for follow-up SUPPLEMENTAL MATERIAL: Procedure Discharge Instructions REFERRAL (RECOMMENDATION): None PRE OP LEARNING ASSESSMENT PROCEDURE/SURGERY: GI PROCEDURES: Colonoscopy READINESS TO LEARN COGNITIVE ABILITY: Alert and oriented MOTIVATION TO LEARN: Interested FAMILY SUPPORT: Moderate - Family present but overwhelmed PATIENT LEARNS BEST BY: Individual Instruction Verbal Instruction FACTORS AFFECTING LEARNING: None PHYSICAL LIMITATIONS AFFECTING LEARNING: None Electronically Signed By: Jun Castellon RN In Department: GASTROENTEROLOGY documented in this encounter [facility] 11-14-2024 Nurse procedure note Procedure aborted for need of MAC. [facility] 11-14-2024 Miscellaneous Notes Procedure aborted for need of MAC. Scope changed to GIF. documented in this encounter [facility] 11-14-2024 Nurse procedure note Scope changed to GIF. [facility] 11-14-2024 Nurse Note PRE OP LEARNING ASSESSMENT PROCEDURE/SURGERY: GI PROCEDURES: Colonoscopy READINESS TO LEARN COGNITIVE ABILITY: Alert and oriented MOTIVATION TO LEARN: Interested FAMILY SUPPORT: Moderate - Family present but overwhelmed PATIENT LEARNS BEST BY: Individual Instruction Verbal Instruction FACTORS AFFECTING LEARNING: None PHYSICAL LIMITATIONS AFFECTING LEARNING: None Electronically Signed By: Jun Castellon RN In Department: GASTROENTEROLOGY [facility] 11-14-2024 History and physical note PROCEDURAL SEDATION HISTORY AND PHYSICAL EXAM SERVICE [...] EACH NOSTRIL 3 TO 4 times daily spironolactone (ALDACTONE) 25 mg [...] 1 tablet by mouth every 12 hours. aspirin, enteric coated (ASPIRIN, ENTERIC COATED) 81 [...] was discussed with the patient or authorized insurance sales representative. The patient or authorized insurance sales representative has agreed to proceed with the sensitive examination. Assessment/Plan ASA Class: 2 Patient OK for Sedation: Yes Sedation Goal: Moderate Discussed case with Dr. Vasquez given the non-healing drain site and leukocytosis. He agrees with proceeding with colonoscopy today. Provisional Diagnosis/Treatment Plan: History of diverticulitis/ Colonoscopy Sedation Goal: Moderate SIGNATURE: Mikael Almonte MD PATIENT NAME: Domo Piña DATE: November 14, 2024 TIME: 11:54 AM 2023 [facility] Work Phone: 11-14-2024 History and physical note PROCEDURAL SEDATION HISTORY AND PHYSICAL EXAM SERVICE [...] EACH NOSTRIL 3 TO 4 times daily spironolactone (ALDACTONE) 25 mg [...] 1 tablet by mouth every 12 hours. aspirin, enteric coated (ASPIRIN, ENTERIC COATED) 81 [...] was discussed with the patient or authorized insurance sales representative. The patient or authorized insurance sales representative has agreed to proceed with the sensitive examination. Assessment/Plan ASA Class: 2 Patient OK for Sedation: Yes Sedation Goal: Moderate Discussed case with Dr. Vasquez given the non-healing drain site and leukocytosis. He agrees with proceeding with colonoscopy today. Provisional Diagnosis/Treatment Plan: History of diverticulitis/ Colonoscopy Sedation Goal: Moderate SIGNATURE: Mikael Almonte MD PATIENT NAME: Domo Piña DATE: November 14, 2024 TIME: 11:54 AM 2023 documented in this encounter [facility] 11-07-2024 Nurse Note Attempted to reach the patient at the contact number that they provided [phone] (home) . Unable to speak with patient so without identifying the patient the following information was left on their voice mail: Date of procedure, location and report time Prep instructions A message was left informing the patient/patient insurance sales representative they must have a responsible adult accompany them to their procedure; and remain in the endoscopy area until they are discharged. Failure to have a responsible adult accompany the patient to their procedure appointment prevents the use of sedation or anesthesia for their procedure; and [...] Number to call with questions or concerns [phone] Number to call to cancel their procedure [phone] Carolyn Houston RN [facility] 11-07-2024 Nurse Note Attempted to reach the patient at the contact number that they provided [phone] (home) . Unable to speak with patient so without identifying the patient the following information was left on their voice mail: Date of procedure, location and report time Prep instructions A message was left informing the patient/patient insurance sales representative they must have a responsible adult accompany them to their procedure; and remain in the endoscopy area until they are discharged. Failure to have a responsible adult accompany the patient to their procedure appointment prevents the use of sedation or anesthesia for their procedure; and [...] Number to call with questions or concerns [phone] Number to call to cancel their procedure [phone] Carolyn Houston RN documented in this encounter [facility] 10-24-2024 Telephone encounter Note Left message on pt's vm stating that pt's colonoscopy scheduled for 10/31/24 at [facility] will be canceled since pt is already scheduled for a colonoscopy at [facility] on 11/14/24. Pt was instructed to have his colonoscopy on 11/14/24 at [facility] due to his complicated case and upcoming surgery. Instructed pt to call the office back with any questions. Nurse cancelled pt's colonoscopy on 10/31/24. [facility] 10-24-2024 Miscellaneous Notes Left message on pt's vm stating that pt's colonoscopy scheduled for 10/31/24 at [facility] will be canceled since pt is already scheduled for a colonoscopy at [facility] on 11/14/24. Pt was instructed to have his colonoscopy on 11/14/24 at [facility] due to his complicated case and upcoming surgery. Instructed pt to call the office back with any questions. Nurse cancelled pt's colonoscopy on 10/31/24. documented in this encounter [facility] 10-12-2024 History and physical note COLORECTAL SURGERY New Patient Visit October 12, 2024 Chief Complaint: Diverticulitis History of Present Illness: Domo Piña is a 64 year old year old male with documented history of diverticulitis with perforation and abscess requiring pigtail catheter that has since been removed. Was admitted to the hospital from August 21-. Had a percutaneous drain placed. Completed course of oral antibiotics and had return of symptoms prompting readmission. Continues to have drainage from the drain site. Drain is typically purulent, was described as bilious very briefly but that has subsided. Currently completing a course of amoxicillin Most recent colonoscopy was about three years. Had a positive Cologuard prompting the scope. Medical history is significant for congestive heart failure. No history of angioplasty or stenting. Was planned to undergo stress testing prior to onset of diverticulitis symptoms but has not completed yet. 09/08/24 CT A/P - Persistent inflammatory changes are seen involving the left inguinal region with percutaneous pigtail catheter in place. No measurable fluid collection is noted. PAST MEDICAL HISTORY Diagnosis Date CHF (congestive heart failure) (HCC) Diverticulitis w/ perforation and abscess PAST SURGICAL HISTORY Procedure Laterality Date PAST SURGICAL HISTORY OF Hernia Repair Current Outpatient Medications Medication Sig Dispense Refill spironolactone (ALDACTONE) 25 mg tablet Take 25 mg by mouth every morning. losartan (COZAAR) 25 mg tablet Take 25 mg by mouth once daily. metoprolol succinate ER (TOPROL XL) 100 mg 100 mg once daily. atorvastatin (LIPITOR) 80 mg tablet Take 80 mg by mouth daily at bedtime. amoxicillin-clavulanate potassium (AUGMENTIN) 875-125 mg per tablet Take 1 tablet by mouth every 12 hours. aspirin, enteric coated (ASPIRIN, ENTERIC COATED) 81 mg EC tablet Take 81 mg by mouth once daily. No current facility-administered medications for this visit. ALLERGIES Allergen Reactions Lisinopril Hives Morphine Other: See Comments Broke out in Sweats Review of Systems / PACC screen: Do you have difficulty climbing a full flight of stairs without feeling short of breath? yes Do you require oxygen for your breathing or have your gone to an emergency department because of breathing problems? no Are you on dialysis or have you been told that your kidneys do not work well as they should? no Do have an implanted cardiac device (pacemaker, defibrillator etc.) that has not been checked in the last 6 months? no Have you had an organ transplant? no Have you been told that you had excessive bleeding during surgical procedures or do you take blood thinning medications other than aspirin? no Have you ever had a heart attack, heart stents/surgery, valve problems, or other heart problems? yes CHF, hx of Heart Cath blockage? no stents per patient. Have you had a stroke, seizures, or unexplained loss of consciousness? Yes, hx of Stroke (plaque behind retina eye) Eye Stroke ? Do you have a neurologic condition like Parkinson's disease or multiple sclerosis? no Have you or a blood relative had a life-threatening reaction to anesthesia? no Do you have cirrhosis of the liver or other liver disease? no Have you had a blood clot within the past year? no Do you take insulin or other injections for diabetes? no Do you have sleep apnea or have you been told you may have sleep apnea? no Do you have other implanted devices (deep brain stimulator, spinal cord stimulator, etc.)? no Physical Exam: Sensitive Exam: no BP 108/82 Pulse 100 Temp 36.3 C (97.3 F) (Oral) Ht 167.6 cm (5' 6 ) Wt 62.2 kg (137 lb 2 oz) SpO2 98% BMI 22.13 kg/m General Appearance: Well appearing, alert, in no acute distress, well-hydrated, well nourished. Lungs: No increased work of breathing on RA Heart: Regular rate Edema: no Abdomen: Soft, mildly tender in LLQ, drain site covered, mild erythema overlying Anorectal: Deferred Assessment Medical Decision Making: Assessment & Diagnosis: Domo Piña is a 64 year old male with complicated sigmoid diverticulitis. He has completed multiple courses of antibiotics (symptoms recurred after completing first course of antibiotics prompting readmission) and s/p percutaneous drainage, drain has since been removed. His most recent colonoscopy was three years ago (images not available for review at this time) and per patient report they were unable to complete the colonoscopy due to a bend in the sigmoid. Barium enema was obtained after aborting the colonoscopy. He will likely require surgery for this problem. Prior to undergoing surgery however, we need to review prior CT and obtain a complete colonoscopy to rule out cancer. Data Reviewed: Tests & Documents Reviewed/ordered: Review of prior notes from outside hospital I have independently interpreted: None available at time of visit I have discussed Domo Piña's treatment plan and/or results with the patient. Treatment plan: - Repeat colonoscopy, plan for colonoscopy for about six weeks after completing antibiotics - Obtain outside imaging, will review when available - Plan for surgery about eight weeks after completing antibiotics - Return precautions provided for if diverticulitis symptoms return - Anesthesia pre-operative clearance, specifically with regard to cardiac symptoms Robotic sigmoid resection w PIE FILLING MIXER and DLI possibly) Colorectal Surgery Risk of morbidity, mortality and/or complications of treatment plan: moderate CORS RESEARCH DISCUSSION - Surgeon DID NOT DISCUSS Colorectal Research with the patient during encounter. [facility] 10-12-2024 History and physical note COLORECTAL SURGERY New Patient Visit October 12, 2024 Chief Complaint: Diverticulitis History of Present Illness: Domo Piña is a 64 year old year old male with documented history of diverticulitis with perforation and abscess requiring pigtail catheter that has since been removed. Was admitted to the hospital from August 21-. Had a percutaneous drain placed. Completed course of oral antibiotics and had return of symptoms prompting readmission. Continues to have drainage from the drain site. Drain is typically purulent, was described as bilious very briefly but that has subsided. Currently completing a course of amoxicillin Most recent colonoscopy was about three years. Had a positive Cologuard prompting the scope. Medical history is significant for congestive heart failure. No history of angioplasty or stenting. Was planned to undergo stress testing prior to onset of diverticulitis symptoms but has not completed yet. 09/08/24 CT A/P - Persistent inflammatory changes are seen involving the left inguinal region with percutaneous pigtail catheter in place. No measurable fluid collection is noted. PAST MEDICAL HISTORY Diagnosis Date CHF (congestive heart failure) (HCC) Diverticulitis w/ perforation and abscess PAST SURGICAL HISTORY Procedure Laterality Date PAST SURGICAL HISTORY OF Hernia Repair Current Outpatient Medications Medication Sig Dispense Refill spironolactone (ALDACTONE) 25 mg tablet Take 25 mg by mouth every morning. losartan (COZAAR) 25 mg tablet Take 25 mg by mouth once daily. metoprolol succinate ER (TOPROL XL) 100 mg 100 mg once daily. atorvastatin (LIPITOR) 80 mg tablet Take 80 mg by mouth daily at bedtime. amoxicillin-clavulanate potassium (AUGMENTIN) 875-125 mg per tablet Take 1 tablet by mouth every 12 hours. aspirin, enteric coated (ASPIRIN, ENTERIC COATED) 81 mg EC tablet Take 81 mg by mouth once daily. No current facility-administered medications for this visit. ALLERGIES Allergen Reactions Lisinopril Hives Morphine Other: See Comments Broke out in Sweats Review of Systems / PACC screen: Do you have difficulty climbing a full flight of stairs without feeling short of breath? yes Do you require oxygen for your breathing or have your gone to an emergency department because of breathing problems? no Are you on dialysis or have you been told that your kidneys do not work well as they should? no Do have an implanted cardiac device (pacemaker, defibrillator etc.) that has not been checked in the last 6 months? no Have you had an organ transplant? no Have you been told that you had excessive bleeding during surgical procedures or do you take blood thinning medications other than aspirin? no Have you ever had a heart attack, heart stents/surgery, valve problems, or other heart problems? yes CHF, hx of Heart Cath blockage? no stents per patient. Have you had a stroke, seizures, or unexplained loss of consciousness? Yes, hx of Stroke (plaque behind retina eye) Eye Stroke ? Do you have a neurologic condition like Parkinson's disease or multiple sclerosis? no Have you or a blood relative had a life-threatening reaction to anesthesia? no Do you have cirrhosis of the liver or other liver disease? no Have you had a blood clot within the past year? no Do you take insulin or other injections for diabetes? no Do you have sleep apnea or have you been told you may have sleep apnea? no Do you have other implanted devices (deep brain stimulator, spinal cord stimulator, etc.)? no Physical Exam: Sensitive Exam: no BP 108/82 Pulse 100 Temp 36.3 C (97.3 F) (Oral) Ht 167.6 cm (5' 6 ) Wt 62.2 kg (137 lb 2 oz) SpO2 98% BMI 22.13 kg/m General Appearance: Well appearing, alert, in no acute distress, well-hydrated, well nourished. Lungs: No increased work of breathing on RA Heart: Regular rate Edema: no Abdomen: Soft, mildly tender in LLQ, drain site covered, mild erythema overlying Anorectal: Deferred Assessment Medical Decision Making: Assessment & Diagnosis: Domo Piña is a 64 year old male with complicated sigmoid diverticulitis. He has completed multiple courses of antibiotics (symptoms recurred after completing first course of antibiotics prompting readmission) and s/p percutaneous drainage, drain has since been removed. His most recent colonoscopy was three years ago (images not available for review at this time) and per patient report they were unable to complete the colonoscopy due to a bend in the sigmoid. Barium enema was obtained after aborting the colonoscopy. He will likely require surgery for this problem. Prior to undergoing surgery however, we need to review prior CT and obtain a complete colonoscopy to rule out cancer. Data Reviewed: Tests & Documents Reviewed/ordered: Review of prior notes from outside hospital I have independently interpreted: None available at time of visit I have discussed Domo Piña's treatment plan and/or results with the patient. Treatment plan: - Repeat colonoscopy, plan for colonoscopy for about six weeks after completing antibiotics - Obtain outside imaging, will review when available - Plan for surgery about eight weeks after completing antibiotics - Return precautions provided for if diverticulitis symptoms return - Anesthesia pre-operative clearance, specifically with regard to cardiac symptoms Robotic sigmoid resection w PIE FILLING MIXER and DLI possibly) Colorectal Surgery Risk of morbidity, mortality and/or complications of treatment plan: moderate CORS RESEARCH DISCUSSION - Surgeon DID NOT DISCUSS Colorectal Research with the patient during encounter. documented in this encounter [facility] 10-06-2024 Progress note Note Date/Time October 06, 2024 4:20pm [facility] [address] [place] [address] Hospitalist Progress Note Signed Patient: Domo Piña MR#: [id number] : 1960 Acct:[id number] Age/Sex: 64 / M Adm Date: 5 Loc: 3T Room: [address] [place] [address] Type: ADM IN Attending Dr: Esdras Muñoz MD Copies to: ~ Date of Service: 10/06/2024 Subjective Subjective Narrative: 10/06 follow-up Patient sitting up in the bed and feeling better this morning. Patient anxious to go home Exam Physical Exam Vital Signs: Temp Pulse Resp BP Pulse Ox O2 Del Method 97.5 F L 83 16 131/86 94 L Room Air 10/06/24 12:51 10/06/24 12:51 10/06/24 12:51 10/06/24 12:51 10/06/24 12:51 10/06/24 12:51 Const General: comfortable and no acute distress Resp Effort & Inspection: able to speak in complete sentences Auscultation: clear to auscultation bilaterally Cardio Rate: regular rate Rhythm: regular rhythm Heart Sounds: S1 normal and S2 normal Objective Lab Results 10/06/24 06:18 10/06/24 06:18 Microbiology Results Microbiology 10/04/24 19:26 Abdomen - Abscess Superficial Wound Culture - Final Klebsiella oxytoca 10/04/24 18:23 Blood - Left Forearm Blood Culture - Preliminary No Growth 1 Day 10/04/24 18:29 Blood - Left Antecubital Blood Culture - Preliminary No Growth 1 Day Meds Allergies and Active Meds Allergies No Known Allergies Allergy (Verified 10/04/24 19:05) Active Meds: Active Medications Generic Name Dose Route Start Last Admin Trade Name Freq PRN Reason Stop Dose Admin Acetaminophen 650 mg 10/04/24 20:34 Acetaminophen 325 Mg Tablet PO 10/04/25 20:33 Q4H PRN Pain Scale 1 - 3 or fever Atorvastatin Calcium 80 mg 10/04/24 22:00 10/05/24 21:13 Atorvastatin 80 Mg Tablet PO 10/04/25 21:59 80 mg QPM PRINCESS Administration Diclofenac Sodium 4 gm 10/04/24 22:00 10/06/24 13:14 Diclofenac Sodium 1% Gel 100 Gm Tube TOPICAL 10/04/25 21:59 Not Given QID PRINCESS Lactated Ringer's 1,000 mls @ 100 mls/hr 10/04/24 20:45 10/06/24 08:16 Lactated Ringers IV 10/04/25 20:44 100 mls/hr .Q10H PRINCESS Administration Meropenem 1 gm in 100 mls @ 33.333 mls/hr 10/05/24 08:00 10/06/24 09:32 Merrem IV 33.33 mls/hr Q8H PRINCESS Administration Ketorolac Tromethamine 15 mg 10/04/24 20:34 Ketorolac Tromethamine 15 Mg/Ml Vial IV-PUSH 10/09/24 20:33 Q6H PRN Pain Losartan Potassium 25 mg 10/04/24 22:00 10/05/24 21:13 Losartan 25 Mg Tablet PO 10/04/25 21:59 25 mg HS PRINCESS Administration Metoprolol Succinate 100 mg 10/04/24 22:00 10/05/24 21:13 Metoprolol Succinate 100 Mg Tab.Er.24h PO 10/04/25 21:59 100 mg HS PRINCESS Administration Morphine Sulfate 2 mg 10/04/24 20:34 Morphine Sulfate 2 Mg/Ml Vial IV-PUSH Q4H PRN Moderate Pain Morphine Sulfate 4 mg 10/04/24 20:34 Morphine Sulfate 4 Mg/Ml Cartridge IV-PUSH Q4H PRN severe pain Pantoprazole Sodium 40 mg 10/04/24 21:00 10/06/24 08:15 Pantoprazole 40 Mg Vial IV-PUSH 10/04/25 20:59 40 mg DAILY PRINCESS Administration Saccharomyces Boulardii 250 mg 10/05/24 08:00 10/06/24 09:15 Saccharomyces Boulardii 250 Mg Capsule PO 10/05/25 07:59 250 mg BID.WITH.MEALS PRINCESS Administration Sodium Chloride 0 ml 10/04/24 17:25 10/06/24 08:15 Sodium Chloride 0.9 % 10 Ml Syringe IV-PUSH 10/04/25 17:24 10 ml PRN PRN Administration Flush Sodium Chloride 10 ml 10/04/24 21:00 10/06/24 08:15 Sodium Chloride 0.9 % 10 Ml Vial.Pf INJECTION 10/04/25 20:59 10 ml DAILY PRINCESS Administration Sodium Chloride 10 ml 10/04/24 20:34 Sodium Chloride 0.9 % 10 Ml Syringe IV-PUSH 10/04/25 20:33 PRN PRN Flush Spironolactone 25 mg 10/05/24 09:00 10/06/24 09:16 Spironolactone 25 Mg Tablet PO 10/05/25 08:59 25 mg QAM PRINCESS Administration A&P - Hospitalist Assessment/Plan (1) Inguinal abscess: (2) Right foot pain: (3) ASHD (arteriosclerotic heart disease): (4) Chronic HFrEF (heart failure with reduced ejection fraction): Plan 1. Left inguinal abscess, which appears to have a fistulous connection. General surgery consulted recommendations to continue current management of IV meropenem until leukocytosis has resolved Will continue IV meropenem initiated on admission 2. Right foot pain Patient states it has resolved on my examination with normal skin color and no sign infection; continue to monitor Podiatry consulted for additional evaluation/recommendations. Documented By: Esdras Muñoz MD 10/06/24 1616 Signed By: <Electronically signed by Esdras Muñoz MD> 10/06/240 [facility] Work Phone: [phone] [place] [address] Hospitalist Progress Note Signed Patient: Domo Piña MR#: [id number] : 1960 Acct:[id number] Age/Sex: 64 / M Adm Date: 5 Loc: Room: [address] [place] [address] Type: ADM IN Attending Dr: Esdras Muñoz MD Copies to: ~ Date of Service: 10/06/2024 Subjective Subjective Narrative: 10/06 follow-up Patient sitting up in the bed and feeling better this morning. Patient anxious to go home Exam Physical Exam Vital Signs: Temp Pulse Resp BP Pulse Ox O2 Del Method 97.5 F L 83 16 131/86 94 L Room Air 10/06/24 12:51 10/06/24 12:51 10/06/24 12:51 10/06/24 12:51 10/06/24 12:51 10/06/24 12:51 Const General: comfortable and no acute distress Resp Effort & Inspection: able to speak in complete sentences Auscultation: clear to auscultation bilaterally Cardio Rate: regular rate Rhythm: regular rhythm Heart Sounds: S1 normal and S2 normal Objective Lab Results 10/06/24 06:18 10/06/24 06:18 Microbiology Results Microbiology 10/04/24 19:26 Abdomen - Abscess Superficial Wound Culture - Final Klebsiella oxytoca 10/04/24 18:23 Blood - Left Forearm Blood Culture - Preliminary No Growth 1 Day 10/04/24 18:29 Blood - Left Antecubital Blood Culture - Preliminary No Growth 1 Day Meds Allergies and Active Meds Allergies No Known Allergies Allergy (Verified 10/04/24 19:05) Active Meds: Active Medications Generic Name Dose Route Start Last Admin Trade Name Jackq PRN Reason Stop Dose Admin Acetaminophen 650 mg 10/04/24 20:34 Acetaminophen 325 Mg Tablet PO 10/04/25 20:33 Q4H PRN Pain Scale 1 - 3 or fever Atorvastatin Calcium 80 mg 10/04/24 22:00 10/05/24 21:13 Atorvastatin 80 Mg Tablet PO 10/04/25 21:59 80 mg QPM PRINCESS Administration Diclofenac Sodium 4 gm 10/04/24 22:00 10/06/24 13:14 Diclofenac Sodium 1% Gel 100 Gm Tube TOPICAL 10/04/25 21:59 Not Given QID PRINCESS Lactated Ringer's 1,000 mls @ 100 mls/hr 10/04/24 20:45 10/06/24 08:16 Lactated Ringers IV 10/04/25 20:44 100 mls/hr .Q10H PRINCESS Administration Meropenem 1 gm in 100 mls @ 33.333 mls/hr 10/05/24 08:00 10/06/24 09:32 Merrem IV 33.33 mls/hr Q8H PRINCESS Administration Ketorolac Tromethamine 15 mg 10/04/24 20:34 Ketorolac Tromethamine 15 Mg/Ml Vial IV-PUSH 10/09/24 20:33 Q6H PRN Pain Losartan Potassium 25 mg 10/04/24 22:00 10/05/24 21:13 Losartan 25 Mg Tablet PO 10/04/25 21:59 25 mg HS PRINCESS Administration Metoprolol Succinate 100 mg 10/04/24 22:00 10/05/24 21:13 Metoprolol Succinate 100 Mg Tab.Er.24h PO 10/04/25 21:59 100 mg HS PRINCESS Administration Morphine Sulfate 2 mg 10/04/24 20:34 Morphine Sulfate 2 Mg/Ml Vial IV-PUSH Q4H PRN Moderate Pain Morphine Sulfate 4 mg 10/04/24 20:34 Morphine Sulfate 4 Mg/Ml Cartridge IV-PUSH Q4H PRN severe pain Pantoprazole Sodium 40 mg 10/04/24 21:00 10/06/24 08:15 Pantoprazole 40 Mg Vial IV-PUSH 10/04/25 20:59 40 mg DAILY PRINCESS Administration Saccharomyces Boulardii 250 mg 10/05/24 08:00 10/06/24 09:15 Saccharomyces Boulardii 250 Mg Capsule PO 10/05/25 07:59 250 mg BID.WITH.MEALS PRINCESS Administration Sodium Chloride 0 ml 10/04/24 17:25 10/06/24 08:15 Sodium Chloride 0.9 % 10 Ml Syringe IV-PUSH 10/04/25 17:24 10 ml PRN PRN Administration Flush Sodium Chloride 10 ml 10/04/24 21:00 10/06/24 08:15 Sodium Chloride 0.9 % 10 Ml Vial.Pf INJECTION 10/04/25 20:59 10 ml DAILY PRINCESS Administration Sodium Chloride 10 ml 10/04/24 20:34 Sodium Chloride 0.9 % 10 Ml Syringe IV-PUSH 10/04/25 20:33 PRN PRN Flush Spironolactone 25 mg 10/05/24 09:00 10/06/24 09:16 Spironolactone 25 Mg Tablet PO 10/05/25 08:59 25 mg QAM PRINCESS Administration A&P - Hospitalist Assessment/Plan (1) Inguinal abscess: (2) Right foot pain: (3) ASHD (arteriosclerotic heart disease): (4) Chronic HFrEF (heart failure with reduced ejection fraction): Plan 1. Left inguinal abscess, which appears to have a fistulous connection. General surgery consulted recommendations to continue current management of IV meropenem until leukocytosis has resolved Will continue IV meropenem initiated on admission 2. Right foot pain Patient states it has resolved on my examination with normal skin color and no sign infection; continue to monitor Podiatry consulted for additional evaluation/recommendations. Documented By: Esdras Muñoz MD 10/06/241615 Signed By: 10/06/24 1620 [facility]07-16-2025 Consult note Author CWQuirino Haywood [facility] Note Date/Time October 05, 2024 7:27 pm [facility] [address] [place] [address] Podiatry Consult Note Signed Patient: Domo Piña MR#: [id number] : 1960 Acct:[id number] Age/Sex: 64 / M Adm Date: 5 Loc: 3T Room: [address] [place] [address] Type: ADM IN Attending Dr: Esdras Muñoz MD Copies to: DO Esdras Grewal MD Eugene R Kubitz,DPM, MS, CWS~ HPI Data of Consult Consult Date: 10/05/24 Requesting Physician: Esdras Muñoz MD Primary Care Provider: Vijay Lozano DO Consult Narrative Reason for consult: Right foot sudden onset History of present illness: Mr. Piña is a 64 year old male who is being seen this time for original consultation regarding right midfoot pain which began yesterday though has resolved. He recalls no injury or trauma or change of activity that would causehis discomfort. He denies any known history of gout or any inflammatory infectious process. He has had no drainage from his right foot either. Patient denies fevers, chills, nausea, vomiting, sweats, diarrhea, chest pain orcalf pain. Review of Systems Review of Systems All other systems reviewed & are negative unless noted below or in HPI [facility] Medical History Diverticulitis of intestine with perforation and abscess Colonic diverticular abscess Acute diverticulitis Perforation of sigmoid colon due to diverticulitis Ischemic cardiomyopathy LHC: occluded RCA, occluded OM branch, mod LAD - 04/2022, Echo: LVEF 45%, normal RV size/function - 07/2023 Vasomotor rhinitis Sinus tachycardia Screening PSA (prostate specific antigen) Primary osteoarthritis, unspecified shoulder (06/04/18) Positive colorectal cancer screening using Cologuard test Other fecal abnormalities Hollenhorst plaque, left eye Encounter for screening for malignant neoplasm of prostate Encounter for screening for malignant neoplasm of colon (06/05/18) Depression screening COVID Cigarette nicotine dependence, uncomplicated Cigarette nicotine dependence without complication Branch retinal vein occlusion of left eye with macular edema Acute maxillary sinusitis, unspecified (04/24/17) Acute bronchitis due to other specified organisms Nicotine addiction Chronic HFrEF (heart failure with reduced ejection fraction) Echocardiogram: LVEF 40% - 2022, Echo: LVEF 40-50% - 2023 Surgical History H/O colonoscopy (~04/2022) History of left heart catheterization (LHC) (~04/2022) Moderate coronary disease LAD, POST GRADUATE INTERN RCA, POST GRADUATE INTERN OM Family History Father Hypertension Diabetes Mother Social History Smoking Status: Former smoker Substance Use Type: None Meds Medications and Allergies Allergies No Known Allergies Allergy (Verified 10/04/24 19:05) Home Medications aspirin 81 mg tablet,delayed release 81 mg PO DAILY 04/10/24 [History Confirmed 10/04/24] atorvastatin 80 mg tablet 80 mg PO QPM 04/10/24 [History Confirmed 10/04/24] losartan 25 mg tablet 25 mg PO HS 04/10/24 [History Confirmed 10/04/24] metoprolol succinate 100 mg tablet,extended release 24 hr 100 mg PO HS 04/10/24 [History Confirmed 10/04/24] spironolactone 25 mg tablet 25 mg PO QAM 04/10/24 [History Confirmed 10/04/24] acetaminophen 325 mg tablet (Tylenol) 650 mg (2 x 325 mg) PO Q6HR PRN Pain Scale1 - 3 or fever 15 days #60 tabs 08/24/24 [Rx Confirmed 10/04/24] Exam Physical Exam Vital Signs: Temp Pulse Resp BP Pulse Ox O2 Del Method 98.6 F 67 20 126/87 99 Room Air 10/05/24 16:00 10/05/24 16:00 10/05/24 16:00 10/05/24 16:00 10/05/24 16:00 10/05/24 16:00 Narrative: Patient is awake alert and orient x 3 resting comfortably watching television then finishing his supper. He is in no apparent distress whatsoever. He has sock intact right foot. After sock is removed right lower extremity pedal pulses are intact, skin is warm, much warmer around the midfoot dorsally on the first metatarsal medial cuneiform and navicular region possibly resolving gout is the first differentialdiagnosis I would offer. There is no pain. Capillary refill less than 2 seconds. Neurological intact right lower extremity. Muscle skeletal strength 5/5 to major muscle groups. Orthopedic examination no gross deformities right lower extremity in terms of area of recent, though now resolved, pain; there is no palpable defect or instability whatsoever. Clinically with all pictures reviewed appears to be patient had most likely resolving gouty arthropathy to the right midfoot not thefirst metatarsophalangeal joint where most likely inflammatory arthropathies i.e. gout occurs. He has no pain to active or passive range of motion. X-rays obtained earlier today showed no pathology whatsoever and I would agree with the reading. There is no need for advanced imaging at this point in my opinion. There is no sign of gouty arthropathy or joint erosions or any calcific soft tissues. Labs: Uric acid has not been obtained and will be ordered. Results - Podiatry Labs 10/05/24 05:45 10/05/24 05:45 Microbiology Microbiology: Microbiology - Results from entire visit 10/04/24 18:23 Blood - Left Forearm Blood Culture - Preliminary No Growth 1 Day 10/04/24 18:29 Blood - Left Antecubital Blood Culture - Preliminary No Growth 1 Day 10/04/24 19:26 Abdomen - Abscess Superficial Wound Culture - Preliminary Klebsiella oxytoca Assessment/Plan (1) Right foot pain: Code(s): M79.671 - Pain in right foot Plan 1. Patient was seen today for consultation for right foot pain with sudden onset without injury. 2. Patient's chart was reviewed at length. History was taken at length as wellthe patient has had no sign of injury or trauma or change of activity. He also has no known history of gouty arthropathy or other inflammatory processes. 3. Physical examination was performed at this time I do not see any sign of pain and patient admits his pain has resolved since this first pain was noted. 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 He has had no gout inthe past nor family history of such. He also denies any known inflammatory arthropathy when inquired about. 4. Infectious pathology is not positive whatsoever for right lower extremity. 5. X-rays were reviewed and are negative. Advanced imaging not necessary. 6. Overall patient's picture and examination and history appears to be positivefor resolving inflammatory arthropathy most likely acute gouty arthropathy. Patient is advised of such as well as offered differential diagnoses all of which at this time seem very highly unlikely to be his diagnosis. 7. Patient was advised at this time there is no need for any treatment several we will order lab work to include uric acid, to be ordered immediately for further evaluation. Patient will be advised of diagnoses that may change patient's plan most likely will not as this is, if positive, his first gouty arthropathy and this would not require initiation of allopurinol type medication. 8. Patient advised if this was a gouty arthropathy that he does not need to be on medication less he has frequent gouty arthropathy acute attacks and that could be handled on an outpatient basis by his family physician Dr. Vijay Lozano. 9. Patient was advised if he does have gouty arthropathy in the future it does cause significant side effects including pain, gouty crystals/tophi that could cause joint erosion as well as joint destruction most commonly first metatarsophalangeal joint of foot though can be other locations throughout the body he also has renal and cardiac issues as well that should be monitored. 10. Patient advised he does not need any surgery from in nor any corticosteroidinjection or physical therapy. Pending uric acid level this will at least give us some more information though going forward. 11. Thanks for consultation. Time: 35 minutes including documentation, discussing patient's case with charge nurse at length. We will review uric acidlevel when available. Documented By: Juan Diego Haywood DPM, , SAADIA 09/20 Signed By: <Electronically signed by CHRISTINA Haywood> 10/05/241926 [facility] Work Phone: [phone] [place] [address] Podiatry Consult Note Signed Patient: Domo Piña MR#: [id number] : 1960 Acct:[id number] Age/Sex: 64 / M Adm Date: 5 Loc: Room: [address] [place] [address] Type: ADM IN Attending Dr: Esdras Muñoz MD Copies to: DO Esdras Grewal MD Eugene R Kubitz, DPM, MS, CWS~ HPI Data of Consult Consult Date: 10/05/24 Requesting Physician: Esdras Muñoz MD Primary Care Provider: Vijay Lozano DO Consult Narrative Reason for consult: Right foot sudden onset History of present illness: Mr. Piña is a 64 year old male who is being seen this time for original consultation regardingright midfoot pain which began yesterday though has resolved. He recalls no injury or trauma or change of activity that would causehis discomfort. He denies any known history of gout or any inflammatory infectious process. He has had no drainage from his right foot either. Patient denies fevers, chills, nausea, vomiting, sweats, diarrhea, chest pain orcalf pain. Review of Systems Review of Systems All other systems reviewed & are negative unless noted below or in HPI [facility] Medical History Diverticulitis of intestine with perforation and abscess Colonic diverticular abscess Acute diverticulitis Perforation of sigmoid colon due to diverticulitis Ischemic cardiomyopathy LHC: occluded RCA, occluded OM branch, mod LAD - 04/2022, Echo: LVEF 45%, normal RV size/function - 07/2023 Vasomotor rhinitis Sinus tachycardia Screening PSA (prostate specific antigen) Primary osteoarthritis, unspecified shoulder (06/04/18) Positive colorectal cancer screening using Cologuard test Other fecal abnormalities Hollenhorst plaque, left eye Encounter for screening for malignant neoplasm of prostate Encounter for screening for malignant neoplasm of colon (06/05/18) Depression screening COVID Cigarette nicotine dependence, uncomplicated Cigarette nicotine dependence without complication Branch retinal vein occlusion of left eye with macular edema Acute maxillary sinusitis, unspecified (04/24/17) Acute bronchitis due to other specified organisms Nicotine addiction Chronic HFrEF (heart failure with reduced ejection fraction) Echocardiogram: LVEF 40% - 2022, Echo: LVEF 40-50% - 2023 Surgical History H/O colonoscopy (~04/2022) History of left heart catheterization (LHC) (~04/2022) Moderate coronary disease LAD, POST GRADUATE INTERN RCA, POST GRADUATE INTERN OM Family History Father Hypertension Diabetes Mother Social History Smoking Status: Former smoker Substance Use Type: None Meds Medications and Allergies Allergies No Known Allergies Allergy (Verified 10/04/24 19:05) Home Medications aspirin 81 mg tablet,delayed release 81 mg PO DAILY 04/10/24 [History Confirmed 10/04/24] atorvastatin 80 mg tablet 80 mg PO QPM 04/10/24 [History Confirmed 10/04/24] losartan 25 mg tablet 25 mg PO HS 04/10/24 [History Confirmed 10/04/24] metoprolol succinate 100 mg tablet,extended release 24 hr 100 mg PO HS 04/10/24 [History Confirmed 10/04/24] spironolactone 25 mg tablet 25 mg PO QAM 04/10/24 [History Confirmed 10/04/24] acetaminophen 325 mg tablet (Tylenol) 650 mg (2 x 325 mg) PO Q6HR PRN Pain Scale1 - 3 or fever 15 days #60 tabs 08/24/24 [Rx Confirmed 10/04/24] Exam Physical Exam Vital Signs: Temp Pulse Resp BP Pulse Ox O2 Del Method 98.6 F 67 20 126/87 99 Room Air 10/05/24 16:00 10/05/24 16:00 10/05/24 16:00 10/05/24 16:00 10/05/24 16:00 10/05/24 16:00 Narrative: Patient is awake alert and orient x 3 resting comfortably watching television then finishing his supper. He is in no apparent distress whatsoever. He has sock intact right foot. After sock is removed right lower extremity pedal pulses are intact, skin is warm, much warmer around the midfoot dorsally on the first metatarsal medial cuneiform and navicular region possibly resolving gout is the first differentialdiagnosis I would offer. There is no pain. Capillary refill less t delgado 2 seconds. Neurological intact right lower extremity. Muscle skeletal strength 5/5 to major muscle groups. Orthopedic examination no gross deformities right lower extremity in terms of area of recent, though now resolved, pain; there is no palpable defect or instability whatsoever. Clinically with all pictures reviewed appears to be patient had most likely resolving gouty arthropathy to the right midfoot not thefirst metatarsophalangeal joint where most likely inflammatory arthropathies i.e. gout occurs. He has no pain to active or passive range of motion. X-rays obtained earlier today showed no pathology whatsoever and I would agree with the reading. There is no need for advanced imaging at this point in my opinion. There is no sign of gouty arthropathy or joint erosions or any calcific soft tissues. Labs: Uric acid has not been obtained and will be ordered. Results - Podiatry Labs 10/05/24 05:45 10/05/24 05:45 Microbiology Microbiology: Microbiology - Results from entire visit 10/04/24 18:23 Blood - Left Forearm Blood Culture - Preliminary No Growth 1 Day 10/04/24 18:29 Blood - Left Antecubital Blood Culture - Preliminary No Growth 1 Day 10/04/24 19:26 Abdomen - Abscess Superficial Wound Culture - Preliminary Klebsiella oxytoca Assessment/Plan (1) Right foot pain: Code(s): M79.671 - Pain in right foot Plan 1. Patient was seen today for consultation for right foot pain with sudden onset without injury. 2. Patient's chart was reviewed at length. History was taken at length as wellthe patient has had no sign of injury or trauma or change of activity. He also has no known history of gouty arthropathy or other inflammatory processes. 3. Physical examination was performed at this time I do not see any sign of pain and patient admitshis pain has resolved since this first pain was noted. 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 He has had no gout inthe past nor family history of such. He also denies any known inflammatory arthropathy when inquired about. 4. Infectious pathology is not positive whatsoever for right lower extremity. 5. X-rays were reviewed and are negative. Advanced imaging not necessary. 6. Overall patient's picture and examination and history appears to be positivefor resolving inflammatory arthropathy most likely acute gouty arthropathy. Patient is advised of such as well as offered differential diagnoses all of which at this time seem very highly unlikely to be his diagnosis. 7. Patient was advised at this time there is no need for any treatment several we will order lab work to include uric acid, to be ordered immediately for further evaluation. Patient will be advised of diagnoses that may change patient's plan most likely will not as this is, if positive, his first gouty arthropathy and this would not require initiation of allopurinol type medication. 8. Patient advised if this was a gouty arthropathy that he does not need to be on medication less he has frequent gouty arthropathy acute attacks and that could be handled on an outpatient basis by his family physician Dr. Vijay Lozano. 9. Patient was advised if he does have gouty arthropathy in the future it does cause significant side effects including pain, gouty crystals/tophi that could cause joint erosion as well as joint destruction most commonly first metatarsophalangeal joint of foot though can be other locations throughout the body he also has renal and cardiac issues as well that should be monitored. 10. Patient advised he does not need any surgery from me nor any corticosteroidinjection or physical therapy. Pending uric acid level this will at least give us some more information though going forward. 11. Thanks for consultation. Time: 35 minutes including documentation, discussing patient's case with charge nurse at length. We will review uric acidlevel when available. Documented By: Juan Diego Haywood,CHRISTINA, MS, CWS 09/20 Signed By: 10/05/241926 [facility]07-16-2025 Consult note Author Ines Wayne [facility] Note Date/Time October 05, 2024 5:27 pm [facility] [address] [place] [address] General Surgery Consult Note Signed Patient: Domo Piña MR#: [id number] : 1960 Acct:[id number] Age/Sex: 64 / M Adm Date: 5 Loc: Room: [address] [place] [address] Type: ADM IN Attending Dr: Esdras Muñoz MD Copies to: MD Vijay Love DO Earl Haley, MD~ History of Present Illness Date of consult: 10/05/2024 Requesting/Attending Provider: Esdras Muñoz MD History of present illness: Patient is a 64-year-old male who is known to in. He was seen for previous hospitalization where he had diverticulitis with an abscess extending to the left lower abdominal wall. This was drained radiologically with a pigtail catheter. Follow-up CT scan as an outpatient showed resolution of the abscess and the pigtail catheter was removed. Patient has since had persistent drainage from the site. The area of hypertrophic granulation tissue was controlled with silver nitrate this week. However, the patient was having drainage and not feeling well and presented to the emergency room. CT scan showed recurrence of a small abscess in the left lower abdominal wall adjacent to site of previous sigmoid colon diverticulitis. Patient's white blood cell count was 18,000. Patient was admitted and started on IV antibiotics. White blood cell count is decreased to 13,000 today. Patient states he does feel better. Plan was for CT-guided drainage today. However, according to radiologist there is not enough fluid to drain. Patient has been tolerating clear liquids. He would like to advance his diet. He denies current abdominal pain. Review of Systems Constitutional Constitutional: Reports fever(s) Gastrointestinal Gastrointestinal: Denies abdominal pain and Denies vomiting Comments: Left lower abdominal wound with drainage [facility] Medical History Diverticulitis of intestine with perforation and abscess Colonic diverticular abscess Acute diverticulitis Perforation of sigmoid colon due to diverticulitis Ischemic cardiomyopathy LHC: occluded RCA, occluded OM branch, mod LAD - 04/2022, Echo: LVEF 45%, normal RV size/function - 07/2023 Vasomotor rhinitis Sinus tachycardia Screening PSA (prostate specific antigen) Primary osteoarthritis, unspecified shoulder (06/04/18) Positive colorectal cancer screening using Cologuard test Other fecal abnormalities Hollenhorst plaque, left eye Encounter for screening for malignant neoplasm of prostate Encounter for screening for malignant neoplasm of colon (06/05/18) Depression screening COVID Cigarette nicotine dependence, uncomplicated Cigarette nicotine dependence without complication Branch retinal vein occlusion of left eye with macular edema Acute maxillary sinusitis, unspecified (04/24/17) Acute bronchitis due to other specified organisms Nicotine addiction Chronic HFrEF (heart failure with reduced ejection fraction) Echocardiogram: LVEF 40% - 2022, Echo: LVEF 40-50% - 2023 Surgical History H/O colonoscopy (~04/2022) History of left heart catheterization (LHC) (~04/2022) Moderate coronary disease LAD, POST GRADUATE INTERN RCA, POST GRADUATE INTERN OM Family History Father Hypertension Diabetes Mother Social History Smoking Status: Former smoker Substance Use Type: None Allergies & Medications Medications and Allergies Allergies No Known Allergies Allergy (Verified 10/04/24 19:05) Home Medications aspirin 81 mg tablet,delayed release 81 mg PO DAILY 04/10/24 [History Confirmed 10/04/24] atorvastatin 80 mg tablet 80 mg PO QPM 04/10/24 [History Confirmed 10/04/24] losartan 25 mg tablet 25 mg PO HS 04/10/24 [History Confirmed 10/04/24] metoprolol succinate 100 mg tablet,extended release 24 hr 100 mg PO HS 04/10/24 [History Confirmed 10/04/24] spironolactone 25 mg tablet 25 mg PO QAM 04/10/24 [History Confirmed 10/04/24] acetaminophen 325 mg tablet (Tylenol) 650 mg (2 x 325 mg) PO Q6HR PRN Pain Scale1 - 3 or fever 15 days #60 tabs 08/24/24 [Rx Confirmed 10/04/24] Active Medications Acetaminophen (Acetaminophen 325 Mg Tablet) 650 mg PO Q4H PRN PRN Reason: Pain Scale 1 - 3 or fever Stop: 10/04/25 20:33 Atorvastatin Calcium (Atorvastatin 80 Mg Tablet) 80 mg PO QPM [facility] Stop: 10/04/25 21:59 Last Admin: 10/04/24 23:25 Dose: 80 mg Diclofenac Sodium (Diclofenac Sodium 1% Gel 100 Gm Tube) 4 gm TOPICAL QID [facility] Stop: 10/04/25 21:59 Last Admin: 10/05/24 17:10 Dose: 4 gm Lactated Ringer's (Lactated Ringers) 1,000 mls @ 100 mls/hr IV .Q10H [facility] Stop: 10/04/25 20:44 Last Admin: 10/05/24 10:46 Dose: 100 mls/hr Meropenem (Merrem) 1 gm in 100 mls @ 33.333 mls/hr IV Q8H [facility] Last Admin: 10/05/24 17:08 Dose: 33.33 mls/hr Ketorolac Tromethamine (Ketorolac Tromethamine 15 Mg/Ml Vial) 15 mg IV-PUSH Q6HPRN PRN Reason: Pain Stop: 10/09/24 20:33 Losartan Potassium (Losartan 25 Mg Tablet) 25 mg PO [facility] Stop: 10/04/25 21:59 Last Admin: 10/04/24 23:25 Dose: 25 mg Metoprolol Succinate (Metoprolol Succinate 100 Mg Tab.Er.24h) 100 mg PO HS [facility] Stop: 10/04/25 21:59 Last Admin: 10/04/24 23:25 Dose: 100 mg Morphine Sulfate (Morphine Sulfate 2 Mg/Ml Vial) 2 mg IV-PUSH Q4H PRN PRN Reason: Moderate Pain Morphine Sulfate (Morphine Sulfate 4 Mg/Ml Cartridge) 4 mg IV-PUSH Q4H PRN PRN Reason: severe pain Pantoprazole Sodium (Pantoprazole 40 Mg Vial) 40 mg IV-PUSH DAILY [facility] Stop: 10/04/25 20:59 Last Admin: 10/05/24 08:47 Dose: 40 mg Saccharomyces Boulardii (Saccharomyces Boulardii 250 Mg Capsule) 250 mg PO BID.WITH.MEALS [facility] Stop: 10/05/25 07:59 Last Admin: 10/05/24 17:08 Dose: 250 mg Sodium Chloride (Sodium Chloride 0.9 % 10 Ml Syringe) 0 ml IV-PUSH PRN PRN PRN Reason: Flush Stop: 10/04/25 17:24 Last Admin: 10/04/24 19:22 Dose: 10 ml Sodium Chloride (Sodium Chloride 0.9 % 10 Ml Vial.Pf) 10 ml INJECTION DAILY [facility] Stop: 10/04/25 20:59 Last Admin: 10/05/24 08:47 Dose: 10 ml Sodium Chloride (Sodium Chloride 0.9 % 10 Ml Syringe) 10 ml IV-PUSH PRN PRN PRN Reason: Flush Stop: 10/04/25 20:33 Spironolactone (Spironolactone 25 Mg Tablet) 25 mg PO QAM [facility] Stop: 10/05/25 08:59 Last Admin: 10/05/24 08:47 Dose: 25 mg Exam Physical Exam Vital Signs: Temp Pulse Resp BP Pulse Ox O2 Del Method 98.3 F 78 20 133/85 98 Room Air 10/05/24 12:00 10/05/24 12:00 10/05/24 12:00 10/05/24 12:00 10/05/24 12:00 10/05/24 12:00 Const General: cooperative and no acute distress GI Inspection: non-distended Palpation: soft and nontender Other: Left lower quadrant wound with small amount of drainage. Currently with a dressing in place. Neuro General: patient alert and patient awake Results - Gen. Surgery Intake and Output 24 hour I&O: Intake & Output 10/05/24 10/05/24 10/05/24 07:59 15:59 23:59 Intake Total 240 / 240 1350 / 1590 Output Total 750 / 750 Balance -510 / -510 1350 / 840 Weight 65 kg Labs 10/05/24 05:45 10/05/24 05:45 Laboratory Results - last 72 hr 10/05/24 05:45: Corrected WBC 13.0 H, Uncorrected WBC Count 13.0 H, RBC 4.20, Hgb 12.0 L, Hct 36.4 L, MCV 86.6, MCH 28.6, MCHC 33.0, RDW 14.3, Plt Count 221, MPV 9.2, Neut % (Auto) 70.0, Lymph % (Auto) 15.6, Moody % (Auto) 12.0, Eos % (Auto) 1.7, Baso % (Auto) 0.7, Nucleat RBC Rel Count 0.1, Neut # (Auto) 9.1 H, Lymph # (Auto) 2.0, Moody # (Auto) 1.6 H, Eos # (Auto) 0.2, Baso # (Auto) 0.1, Platelet Estimate Normal, Plt Morphology Comment Normal, RBC Morphology N/A, Poikilocytosis Slight, Anisocytosis Slight, Microcytosis Slight, Ovalocytes Slight, Crenated Cell Slight, PHA Creatinine Clear 83.07, Sodium 135 L, Potassium 3.7, Chloride 102, Carbon Dioxide 25.5, Anion Gap 11.2, BUN 15, Creatinine 0.65 L, Est GFR (CKD-EPI) > 60.0, Glucose 102 H, Calcium 8.4 L 10/04/24 18:29: Corrected WBC 18.1 H, Uncorrected WBC Count 18.1 H, RBC 4.73, Hgb 13.6, Hct 41.3, MCV 87.3, MCH 28.7, MCHC 32.9, RDW 14.0, Plt Count 247, MPV 9.1, Neut % (Auto) 84.7, Lymph % (Auto) 6.8, Moody % (Auto) 8.0, Eos % (Auto) 0.1, Baso % (Auto) 0.4, Nucleat RBC Rel Count 0.1, Neut # (Auto) 15.4 H, Lymph #(Auto) 1.2, Moody # (Auto) 1.4 H, Eos # (Auto) 0.0, Baso # (Auto) 0.1, Monocyte Dist Width 19.07, PHA Creatinine Clear 79.73, Sodium 134 L, Potassium 4.1, Chloride 100, Carbon Dioxide 26.9, Anion Gap 11.2, BUN 17, Creatinine 0.79, Est GFR (CKD-EPI) > 60.0, Glucose 123 H, Lactic Acid 1.1, Calcium 9.5, Total Bilirubin 0.7, AST 15, ALT 20, Alkaline Phosphatase 94, Total Protein 8.1, Albumin 4.2, Globulin 3.9, Albumin/Globulin Ratio 1.1, Lipase 13.0 Microbiology Microbiology - Results from entire visit 10/04/24 19:26 Abdomen - Abscess Superficial Wound Culture - Preliminary Klebsiella oxytoca A&P - General Surgery (1) Diverticulitis of intestine with perforation and abscess: Qualifiers: Diverticulitis site: large intestine Diverticulitis bleeding: without bleeding Qualified Code(s): K57.20 - Diverticulitis of large intestine with perforation and abscess without bleeding Plan I did discuss ultimate surgical treatment for the diverticulitis with abscess. Patient's has already been in contact with Dr. Wells's office. He is a colorectal specialist at the [facility]. Patient has an appointment for next Thursday, 1 week from now. Continue IV antibiotics until white blood cell count is normal. At that time, can switch to oral antibiotics and discharge patient and patient can keep his appointment at the [facility]. If, between the time of discharge and the patient's future appointment next week, the patient does become ill again, the will consider taking the patient to the [facility] emergency room so that the patient could still have surgery with Dr. Wells if needed. Documented By: Ines [facility] MD 10/05/247 Signed By: <Electronically signed by MD Ines [facility]> 10/05/24 1750 [facility] Work Phone: [phone]) 364-160207-16-2025 Progress note Author Esdras Muñoz [facility] Note Date/Time October 05, 2024 4:43 pm [facility] [address] [place] [address] Hospitalist Progress Note Signed Patient: Domo Piña MR#: [id number] : 1960 Acct:[id number] Age/Sex: 64 / M Adm Date: 5 Loc: Room: [address] [place] [address] Type: ADM IN Attending Dr: Esdras Muñoz MD Copies to: ~ Date of Service: 10/05/2024 Subjective Subjective Narrative: Patient this morning with no issues or complaints and on the phone at the time of examination it would not hang up. Patient did not seem to be any acute distress Exam Physical Exam Vital Signs: Temp Pulse Resp BP Pulse Ox O2 Del Method 98.3 F 78 20 133/85 98 Room Air 10/05/24 12:00 10/05/24 12:00 10/05/24 12:00 10/05/24 12:00 10/05/24 12:00 10/05/24 12:00 Const General: comfortable and no acute distress Resp Effort & Inspection: able to speak in complete sentences Auscultation: clear to auscultation bilaterally Cardio Rate: regular rate Rhythm: regular rhythm Heart Sounds: S1 normal and S2 normal Objective Lab Results 10/05/24 05:45 10/05/24 05:45 Microbiology Results Microbiology 10/04/24 19:26 Abdomen - Abscess Superficial Wound Culture - Preliminary Klebsiella oxytoca Meds Allergies and Active Meds Allergies No Known Allergies Allergy (Verified 10/04/24 19:05) Active Meds: Active Medications Generic Name Dose Route Start Last Admin Trade Name Freq PRN Reason Stop Dose Admin Acetaminophen 650 mg 10/04/24 20:34 Acetaminophen 325 Mg Tablet PO 10/04/25 20:33 Q4H PRN Pain Scale 1 - 3 or fever Atorvastatin Calcium 80 mg 10/04/24 22:00 10/04/24 23:25 Atorvastatin 80 Mg Tablet PO 10/04/25 21:59 80 mg QPM [facility] Administration Diclofenac Sodium 4 gm 10/04/24 22:00 10/05/24 08:48 Diclofenac Sodium 1% Gel 100 Gm Tube TOPICAL 10/04/25 21:59 4 gm QID [facility] Administration Lactated Ringer's 1,000 mls @ 100 mls/hr 10/04/24 20:45 10/05/24 10:46 Lactated Ringers IV 10/04/25 20:44 100 mls/hr .Q10H [facility] Administration Meropenem 1 gm in 100 mls @ 33.333 mls/hr 10/05/24 08:00 10/05/24 11:48 Merrem IV Infused Q8H [facility] Infusion Ketorolac Tromethamine 15 mg 10/04/24 20:34 Ketorolac Tromethamine 15 Mg/Ml Vial IV-PUSH 10/09/24 20:33 Q6H PRN Pain Losartan Potassium 25 mg 10/04/24 22:00 10/04/24 23:25 Losartan 25 Mg Tablet PO 10/04/25 21:59 25 mg HS [facility] Administration Metoprolol Succinate 100 mg 10/04/24 22:00 10/04/24 23:25 Metoprolol Succinate 100 Mg Tab.Er.24h PO 10/04/25 21:59 100 mg HS [facility] Administration Morphine Sulfate 2 mg 10/04/24 20:34 Morphine Sulfate 2 Mg/Ml Vial IV-PUSH Q4H PRN Moderate Pain Morphine Sulfate 4 mg 10/04/24 20:34 Morphine Sulfate 4 Mg/Ml Cartridge IV-PUSH Q4H PRN severe pain Pantoprazole Sodium 40 mg 10/04/24 21:00 10/05/24 08:47 Pantoprazole 40 Mg Vial IV-PUSH 10/04/25 20:59 40 mg DAILY [facility] Administration Saccharomyces Boulardii 250 mg 10/05/24 08:00 10/05/24 08:47 Saccharomyces Boulardii 250 Mg Capsule PO 10/05/25 07:59 250 mg BID.WITH.MEALS [facility] Administration Sodium Chloride 0 ml 10/04/24 17:25 10/04/24 19:22 Sodium Chloride 0.9 % 10 Ml Syringe IV-PUSH 10/04/25 17:24 10 ml PRN PRN Administration Flush Sodium Chloride 10 ml 10/04/24 21:00 10/05/24 08:47 Sodium Chloride 0.9 % 10 Ml Vial.Pf INJECTION 10/04/25 20:59 10 ml DAILY [facility] Administration Sodium Chloride 10 ml 10/04/24 20:34 Sodium Chloride 0.9 % 10 Ml Syringe IV-PUSH 10/04/25 20:33 PRN PRN Flush Spironolactone 25 mg 10/05/24 09:00 10/05/24 08:47 Spironolactone 25 Mg Tablet PO 10/05/25 08:59 25 mg QAM [facility] Administration A&P - Hospitalist Assessment/Plan (1) Inguinal abscess: (2) Right foot pain: (3) ASHD (arteriosclerotic heart disease): (4) Chronic HFrEF (heart failure with reduced ejection fraction): Plan 1. Left inguinal abscess, which appears to have a fistulous connection. Will continue IV meropenem initiated on admission General surgery consulted for additional evaluation. 2. Right foot pain Patient states it has resolved on my examination with normal skin color and no sign infection; continue to monitor Documented By: Esdras Muñoz MD 10/05/24 1640 Signed By: <Electronically signed by Esdras Muñoz MD> 10/05/24 4635 [facility] Work Phone: [phone] [place] [id number] General Surgery Consult Note Signed Patient: Domo Piña MR#: [id number] : 1960 Acct:[id number] Age/Sex: 64 / M Adm Date: 5 Loc: Room: [address] [place] [address] Type: ADM IN Attending Dr: Esdras Muñoz MD Copies to: MD Vijay Love DO Earl Haley, MD~ History of Present Illness Date of consult: 10/05/2024 Requesting/Attending Provider: Esdras Muñoz MD History of present illness: Patient is a 64-year-old male who is known to me. He was seen for previous hospitalization where hehad diverticulitis with an abscess extending to the left lower abdominal wall. This was drained radiologically with a pigtail catheter. Follow-up CT scan as an outpatient showed resolution of the abscess and the pigtail catheter was removed. Patient has since had persistent drainage from the site. The area of hypertrophic granulation tissue was controlled with silver nitrate this week. However, the patient was having drainage and not feeling well and presented to the emergency room. CT scan showed recurrence of a small abscess in the left lower abdominal wall adjacent to site of previous sigmoid colon diverticulitis. Patient's white blood cell count was 18,000. Patient was admitted and started on IV antibiotics. White blood cell count is decreased to 13,000 today. Patient states he does feel better. Plan was for CT-guided drainage today. However, according to radiologist there is not enough fluid to drain. Patient has been tolerating clear liquids. He would like to advance his diet. He denies current abdominal pain. Review of Systems Constitutional Constitutional: Reports fever(s) Gastrointestinal Gastrointestinal: Denies abdominal pain and Denies vomiting Comments: Left lower abdominal wound with drainage PMFSH Medical History Diverticulitis of intestine with perforation and abscess Colonic diverticular abscess Acute diverticulitis Perforation of sigmoid colon due to diverticulitis Ischemic cardiomyopathy LHC: occluded RCA, occluded OM branch, mod LAD - 04/2022, Echo: LVEF 45%, normal RV size/function - 07/2023 Vasomotor rhinitis Sinus tachycardia Screening PSA (prostate specific antigen) Primary osteoarthritis, unspecified shoulder (06/04/18) Positive colorectal cancer screening using Cologuard test Other fecal abnormalities Hollenhorst plaque, left eye Encounter for screening for malignant neoplasm of prostate Encounter for screening for malignant neoplasm of colon (06/05/18) Depression screening COVID Cigarette nicotine dependence, uncomplicated Cigarette nicotine dependence without complication Branch retinal vein occlusion of left eye with macular edema Acute maxillary sinusitis, unspecified (04/24/17) Acute bronchitis due to other specified organisms Nicotine addiction Chronic HFrEF (heart failure with reduced ejection fraction) Echocardiogram: LVEF 40% - 2022, Echo: LVEF 40-50% - 2023 Surgical History H/O colonoscopy (~04/2022) History of left heart catheterization (LHC) (~04/2022) Moderate coronary disease LAD, POST GRADUATE INTERN RCA, POST GRADUATE INTERN OM Family History Father Hypertension Diabetes Mother Social History Smoking Status: Former smoker Substance Use Type: None Allergies & Medications Medications and Allergies Allergies No Known Allergies Allergy (Verified 10/04/24 19:05) Home Medications aspirin 81 mg tablet,delayed release 81 mg PO DAILY 04/10/24 [History Confirmed 10/04/24] atorvastatin 80 mg tablet 80 mg PO QPM 04/10/24 [History Confirmed 10/04/24] losartan 25 mg tablet 25 mg PO HS 04/10/24 [History Confirmed 10/04/24] metoprolol succinate 100 mg tablet,extended release 24 hr 100 mg PO HS 04/10/24 [History Confirmed 10/04/24] spironolactone 25 mg tablet 25 mg PO QAM 04/10/24 [History Confirmed 10/04/24] acetaminophen 325 mg tablet (Tylenol) 650 mg (2 x 325 mg) PO Q6HR PRN Pain Scale1 - 3 or fever 15 days #60 tabs 08/24/24 [Rx Confirmed 10/04/24] Active Medications Acetaminophen (Acetaminophen 325 Mg Tablet) 650 mg PO Q4H PRN PRN Reason: Pain Scale 1 - 3 or fever Stop: 10/04/25 20:33 Atorvastatin Calcium (Atorvastatin 80 Mg Tablet) 80 mg PO QPM [facility] Stop: 10/04/25 21:59 Last Admin: 10/04/24 23:25 Dose: 80 mg Diclofenac Sodium (Diclofenac Sodium 1% Gel 100 Gm Tube) 4 gm TOPICAL QID [facility] Stop: 10/04/25 21:59 Last Admin: 10/05/24 17:10 Dose: 4 gm Lactated Ringer's (Lactated Ringers) 1,000 mls @ 100 mls/hr IV .Q10H [facility] Stop: 10/04/25 20:44 Last Admin: 10/05/24 10:46 Dose: 100 mls/hr Meropenem (Merrem) 1 gm in 100 mls @ 33.333 mls/hr IV Q8H [facility] Last Admin: 10/05/24 17:08 Dose: 33.33 mls/hr Ketorolac Tromethamine (Ketorolac Tromethamine 15 Mg/Ml Vial) 15 mg IV-PUSH Q6HPRN PRN Reason: Pain Stop: 10/09/24 20:33 Losartan Potassium (Losartan 25 Mg Tablet) 25 mg PO HS [facility] Stop: 10/04/25 21:59 Last Admin: 10/04/24 23:25 Dose: 25 mg Metoprolol Succinate (Metoprolol Succinate 100 Mg Tab.Er.24h) 100 mg PO HS [facility] Stop: 10/04/25 21:59 Last Admin: 10/04/24 23:25 Dose: 100 mg Morphine Sulfate (Morphine Sulfate 2 Mg/Ml Vial) 2 mg IV-PUSH Q4H PRN PRN Reason: Moderate Pain Morphine Sulfate (Morphine Sulfate 4 Mg/Ml Cartridge) 4 mg IV-PUSH Q4H PRN PRN Reason: severe pain Pantoprazole Sodium (Pantoprazole 40 Mg Vial) 40 mg IV-PUSH DAILY [facility] Stop: 10/04/25 20:59 Last Admin: 10/05/24 08:47 Dose: 40 mg Saccharomyces Boulardii (Saccharomyces Boulardii 250 Mg Capsule) 250 mg PO BID.WITH.MEALS [facility] Stop: 10/05/25 07:59 Last Admin: 10/05/24 17:08 Dose: 250 mg Sodium Chloride (Sodium Chloride 0.9 % 10 Ml Syringe) 0 ml IV-PUSH PRN PRN PRN Reason: Flush Stop: 10/04/25 17:24 Last Admin: 10/04/24 19:22 Dose: 10 ml Sodium Chloride (Sodium Chloride 0.9 % 10 Ml Vial.Pf) 10 ml INJECTION DAILY [facility] Stop: 10/04/25 20:59 Last Admin: 10/05/24 08:47 Dose: 10 ml Sodium Chloride (Sodium Chloride 0.9 % 10 Ml Syringe) 10 ml IV-PUSH PRN PRN PRN Reason: Flush Stop: 10/04/25 20:33 Spironolactone (Spironolactone 25 Mg Tablet) 25 mg PO QAM [facility] Stop: 10/05/25 08:59 Last Admin: 10/05/24 08:47 Dose: 25 mg Exam Physical Exam Vital Signs: Temp Pulse Resp BP Pulse Ox O2 Del Method 98.3 F 78 20 133/85 98 Room Air 10/05/24 12:00 10/05/24 12:00 10/05/24 12:00 10/05/24 12:00 10/05/24 12:00 10/05/24 12:00 Const General: cooperative and no acute distress GI Inspection: non-distended Palpation: soft and nontender Other: Left lower quadrant wound with small amount of drainage. Currently with a dressing in place. Neuro General: patient alert and patient awake Results - Gen. Surgery Intake and Output 24 hour I&O: Intake & Output 10/05/24 10/05/24 10/05/24 07:59 15:59 23:59 Intake Total 240 / 240 1350 / 1590 Output Total 750 / 750 Balance -510 / -510 1350 / 840 Weight 65 kg Labs 10/05/24 05:45 10/05/24 05:45 Laboratory Results - last 72 hr 10/05/24 05:45: Corrected WBC 13.0 H, Uncorrected WBC Count 13.0 H, RBC 4.20, Hgb 12.0 L, Hct 36.4 L, MCV 86.6, MCH 28.6, MCHC 33.0, RDW 14.3, Plt Count 221, MPV 9.2, Neut % (Auto) 70.0, Lymph % (Auto) 15.6, Moody % (Auto) 12.0, Eos % (Auto) 1.7, Baso % (Auto) 0.7, Nucleat RBC Rel Count 0.1, Neut # (Auto) 9.1 H, Lymph # (Auto) 2.0, Moody # (Auto) 1.6 H, Eos # (Auto) 0.2, Baso # (Auto) 0.1, PlateletEstimate Normal, Plt Morphology Comment Normal, RBC Morphology N/A, Poikilocytosis Slight, Anisocytosis Slight, Microcytosis Slight, Ovalocytes Slight, Crenated Cell Slight, PHA Creatinine Clear 83.07, Sodium 135 L, Potassium 3.7, Chloride 102, Carbon Dioxide 25.5, Anion Gap 11.2, BUN 15, Creatinine 0.65 L, Est GFR (CKD-EPI) > 60.0, Glucose 102 H, Calcium 8.4 L 10/04/24 18:29: Corrected WBC 18.1 H, Uncorrected WBC Count 18.1 H, RBC 4.73, Hgb 13.6, Hct 41.3, MCV 87.3, MCH 28.7, MCHC 32.9, RDW 14.0, Plt Count 247, MPV 9.1, Neut % (Auto) 84.7, Lymph % (Auto) 6.8, Moody % (Auto) 8.0, Eos % (Auto) 0.1, Baso % (Auto) 0.4, Nucleat RBC Rel Count 0.1, Neut # (Auto)15.4 H, Lymph #(Auto) 1.2, Moody # (Auto) 1.4 H, Eos # (Auto) 0.0, Baso # (Auto) 0.1, Monocyte Dist Width 19.07, PHA Creatinine Clear 79.73, Sodium 134 L, Potassium 4.1, Chloride 100, Carbon Dioxide 26.9, Anion Gap 11.2, BUN 17, Creatinine 0.79, Est GFR (CKD-EPI) > 60.0, Glucose 123 H, Lactic Acid 1.1, Calcium 9.5, Total Bilirubin 0.7, AST 15, ALT 20, Alkaline Phosphatase 94, Total Protein 8.1, Albumin 4.2, Globulin 3.9, Albumin/Globulin Ratio 1.1, Lipase 13.0 Microbiology Microbiology - Results from entire visit 10/04/24 19:26 Abdomen - Abscess Superficial Wound Culture - Preliminary Klebsiella oxytoca A&P - General Surgery (1) Diverticulitis of intestine with perforation and abscess: Qualifiers: Diverticulitis site: large intestine Diverticulitis bleeding: without bleeding Qualified Code(s): K57.20 - Diverticulitis of large intestine with perforation and abscess without bleeding Plan I did discuss ultimate surgical treatment for the diverticulitis with abscess. Patient's has already been in contact with Dr. Wells's office. He is a colorectal specialist at the [facility]. Patient has an appointment for next Thursday, 1 week from now. Continue IV antibiotics until white blood cell count is normal. At that time, can switch to oral antibiotics and discharge patient and patient can keep his appointment at the [facility]. If, between the time of discharge and the patient's future appointment next week, the patient does become ill again, the will consider taking the patient to the [facility] emergency room so that the patient could still have surgery with Dr. Wells if needed. Documented By: Ines Wayne MD 10/05/24 1719 Signed By: 10/05/24 1727 [facility]07-16-2025 [place] [address] Hospitalist Progress Note Signed Patient: Domo Piña MR#: [id number] : 1960 Acct:[id number] Age/Sex: 64 / M Adm Date: 5 Loc: Room: [address] [place] [address] Type: ADM IN Attending Dr: Esdras Muñoz MD Copies to: ~ Date of Service: 10/05/2024 Subjective Subjective Narrative: Patient this morning with no issues or complaints and on the phone at the time of examination it would not hang up. Patient did not seem to be any acute distress Exam Physical Exam Vital Signs: Temp Pulse Resp BP Pulse Ox O2 Del Method 98.3 F 78 20 133/85 98 Room Air 10/05/24 12:00 10/05/24 12:00 10/05/24 12:00 10/05/24 12:00 10/05/24 12:00 10/05/24 12:00 Const General: comfortable and no acute distress Resp Effort & Inspection: able to speak in complete sentences Auscultation: clear to auscultation bilaterally Cardio Rate: regular rate Rhythm: regular rhythm Heart Sounds: S1 normal and S2 normal Objective Lab Results 10/05/24 05:45 10/05/24 05:45 Microbiology Results Microbiology 10/04/24 19:26 Abdomen - Abscess Superficial Wound Culture - Preliminary Klebsiella oxytoca Meds Allergies and Active Meds Allergies No Known Allergies Allergy (Verified 10/04/24 19:05) Active Meds: Active Medications Generic Name Dose Route Start Last Admin Trade Name Freq PRN Reason Stop Dose Admin Acetaminophen 650 mg 10/04/24 20:34 Acetaminophen 325 Mg Tablet PO 10/04/25 20:33 Q4H PRN Pain Scale 1 - 3 or fever Atorvastatin Calcium 80 mg 10/04/24 22:00 10/04/24 23:25 Atorvastatin 80 Mg Tablet PO 10/04/25 21:59 80 mg QPM [facility] Administration Diclofenac Sodium 4 gm 10/04/24 22:00 10/05/24 08:48 Diclofenac Sodium 1% Gel 100 Gm Tube TOPICAL 10/04/25 21:59 4 gm QID [facility] Administration Lactated Ringer's 1,000 mls @ 100 mls/hr 10/04/24 20:45 10/05/24 10:46 Lactated Ringers IV 10/04/25 20:44 100 mls/hr .Q10H [facility] Administration Meropenem 1 gm in 100 mls @ 33.333 mls/hr 10/05/24 08:00 10/05/24 11:48 Merrem IV Infused Q8H [facility] Infusion Ketorolac Tromethamine 15 mg 10/04/24 20:34 Ketorolac Tromethamine 15 Mg/Ml Vial IV-PUSH 10/09/24 20:33 Q6H PRN Pain Losartan Potassium 25 mg 10/04/24 22:00 10/04/24 23:25 Losartan 25 Mg Tablet PO 10/04/25 21:59 25 mg HS [facility] Administration Metoprolol Succinate 100 mg 10/04/24 22:00 10/04/24 23:25 Metoprolol Succinate 100 Mg Tab.Er.24h PO 10/04/25 21:59 100 mg HS [facility] Administration Morphine Sulfate 2 mg 10/04/24 20:34 Morphine Sulfate 2 Mg/Ml Vial IV-PUSH Q4H PRN Moderate Pain Morphine Sulfate 4 mg 10/04/24 20:34 Morphine Sulfate 4 Mg/Ml Cartridge IV-PUSH Q4H PRN severe pain Pantoprazole Sodium 40 mg 10/04/24 21:00 10/05/24 08:47 Pantoprazole 40 Mg Vial IV-PUSH 10/04/25 20:59 40 mg DAILY [facility] Administration Saccharomyces Boulardii 250 mg 10/05/24 08:00 10/05/24 08:47 Saccharomyces Boulardii 250 Mg Capsule PO 10/05/25 07:59 250 mg BID.WITH.MEALS [facility] Administration Sodium Chloride 0 ml 10/04/24 17:25 10/04/24 19:22 Sodium Chloride 0.9 % 10 Ml Syringe IV-PUSH 10/04/25 17:24 10 ml PRN PRN Administration Flush Sodium Chloride 10 ml 10/04/24 21:00 10/05/24 08:47 Sodium Chloride 0.9 % 10 Ml Vial.Pf INJECTION 10/04/25 20:59 10 ml DAILY [facility] Administration Sodium Chloride 10 ml 10/04/24 20:34 Sodium Chloride 0.9 % 10 Ml Syringe IV-PUSH 10/04/25 20:33 PRN PRN Flush Spironolactone 25 mg 10/05/24 09:00 10/05/24 08:47 Spironolactone 25 Mg Tablet PO 10/05/25 08:59 25 mg QAM [facility] Administration A&P - Hospitalist Assessment/Plan (1) Inguinal abscess: (2) Right foot pain: (3) ASHD (arteriosclerotic heart disease): (4) Chronic HFrEF (heart failure with reduced ejection fraction): Plan 1. Left inguinal abscess, which appears to have a fistulous connection. Will continue IV meropenem initiated on admission General surgery consulted for additional evaluation. 2. Right foot pain Patient states it has resolved on my examination with normal skin color and no sign infection; continue to monitor Documented By: Esdras Muñoz MD 10/05/24 1640 Signed By: 10/05/24 1643 [facility]07-16-2025 Progress note Author Navarro Ballesteros [facility] Note Date/Time October 04, 2024 10:3 7pm [facility] [address] [place] [address] Progress Note Signed Patient: Domo Piña MR#: [id number] : 1960 Acct:[id number] Age/Sex: 64 / M Adm Date: 5 Loc: 3T Room: [address] [place] [address] Type: ADM IN Attending Dr: Navarro Ballesteros DO Copies to: ~ Date of Service: 10/04/2024 Quality Measures SEPSIS Tissue perfusion reassessment (select if applicable): Tissue perfusion reassessed after bolus given FOCUSED EXAM Capillary refill: Capillary refill < 3 seconds Peripheral pulses: Pulses present bilaterally Skin color/condition: Skin normal for ethnicity Documented By: Navarro Ballesteros DO [id number] Signed By: <Electronically signed by Navarro Ballesteros DO> 10/04/242236 [facility] Work Phone: [phone] 117-282207-16-2025 History and physical note Author Navarro Ballesteros [facility] Note Date/Time October 04, 2024 10:[facility] [address] [place] [address] Hospitalist H&P Signed Patient: Domo Piña MR#: [id number] : 1960 Acct:[id number] Age/Sex: 64 / M Adm Date: 5 Loc: Room: [address] [place] [address] Type: ADM IN Attending Dr: Navarro Ballesteors DO Copies to: Vijay Lozano,DO Navarro Ballesteros DO~ HPI DATE OF EXAMINATION: 10/04/24 CHIEF COMPLAINT: Drainage from wound in left lower quadrant. HISTORY OF PRESENT ILLNESS: I am asked to admit this patient on behalf of general surgery with Dr. Ines Wayne. This is a 64-year-old man who came to the emergency room today with worsening drainage from a 6-week old previous CT scan drainage site in his left lower quadrant. Back on August 26, 2024 Dr. Patel was taking care of the patient for diverticulitis and abscess in the sigmoid colon region. On 08/22/[address]-guided catheter placed. During that hospital stay he was treated with IV Rocephin and Flagyl. He was discharged home with a catheter in place. Shorttime after his discharge cultures came back showing that the wound was growing Pseudomonas. At that point Levyesyuin was called in. The patient was in the general surgery office of Dr. Wayne yesterday. He says that yesterday evening and last night he began to feel really bad. And he had an episode of diarrhea. His says that the previous catheter insertion site has been draining a lot of purulent material, especially over the last 7 days. They completed the antibiotic with Levaquin about 7 days ago. Additionally, last night, the patient began having pain on his right foot. Thisis on the top part of the foot by the tendons and also on the lateral ankle region. He has never had anything like that. He has never had gout before -perhis report. In the ER this evening he had a follow-up CT scan of the abdomen pelvis that showed: Persistent fat stranding is noted with an extraluminal collection evacuating along the junction of the descending colon and sigmoid colon which appears to have a fistulous connection to a small left inguinal abscess. There is a fistulous tract to an area of skin thickening along the previous drainage site. The drain has been removed. The area of abscess measures 2.3 x 1.6 x 2.8cm in greatest dimension along the left inguinal wall. The ER did make contact with general surgery with Dr. Wayne, who asked for the hospitalist to admit the patient overnight. The ER did give IV vancomycin and IV Zosyn. However on the Pseudomonas culture from back on August 22 the Pseudomonas was IB with intermediate beta lactamase resistance to the Zosyn, so I have ordered IV meropenem. Review of Systems Review of Systems Review of systems: 10 systems are reviewed and are negative except as mentioned elsewhere in the documentation. [facility] Medical History Diverticulitis of intestine with perforation and abscess Colonic diverticular abscess Acute diverticulitis Perforation of sigmoid colon due to diverticulitis Ischemic cardiomyopathy LHC: occluded RCA, occluded OM branch, mod LAD - 04/2022, Echo: LVEF 45%, normal RV size/function - 07/2023 Vasomotor rhinitis Sinus tachycardia Screening PSA (prostate specific antigen) Primary osteoarthritis, unspecified shoulder (06/04/18) Positive colorectal cancer screening using Cologuard test Other fecal abnormalities Hollenhorst plaque, left eye Encounter for screening for malignant neoplasm of prostate Encounter for screening for malignant neoplasm of colon (06/05/18) Depression screening COVID Cigarette nicotine dependence, uncomplicated Cigarette nicotine dependence without complication Branch retinal vein occlusion of left eye with macular edema Acute maxillary sinusitis, unspecified (04/24/17) Acute bronchitis due to other specified organisms Nicotine addiction Chronic HFrEF (heart failure with reduced ejection fraction) Echocardiogram: LVEF 40% - 2022, Echo: LVEF 40-50% - 2023 Surgical History H/O colonoscopy (~04/2022) History of left heart catheterization (LHC) (~04/2022) Moderate coronary disease LAD, POST GRADUATE INTERN RCA, POST GRADUATE INTERN OM Family History Father Hypertension Diabetes Mother Social History Smoking Status: Former smoker Substance Use Type: None Current Occupational Status Other:: smoked 1 ppd from 1976 to 2023. About a 27 pack year smoking history. Meds Medications and Allergies Allergies No Known Allergies Allergy (Verified 10/04/24 19:05) Home Medications aspirin 81 mg tablet,delayed release 81 mg PO DAILY 04/10/24 [History Confirmed 10/04/24] atorvastatin 80 mg tablet 80 mg PO QPM 04/10/24 [History Confirmed 10/04/24] losartan 25 mg tablet 25 mg PO HS 04/10/24 [History Confirmed 10/04/24] metoprolol succinate 100 mg tablet,extended release 24 hr 100 mg PO HS 04/10/24 [History Confirmed 10/04/24] spironolactone 25 mg tablet 25 mg PO QAM 04/10/24 [History Confirmed 10/04/24] acetaminophen 325 mg tablet (Tylenol) 650 mg (2 x 325 mg) PO Q6HR PRN Pain Scale1 - 3 or fever 15 days #60 tabs 08/24/24 [Rx Confirmed 10/04/24] Exam Physical Exam Vital Signs: Temp Pulse Resp BP Pulse Ox O2 Del Method 98.3 F 101 H 16 91/55 L 98 Room Air 10/04/24 17:23 10/04/24 21:06 10/04/24 21:06 10/04/24 21:06 10/04/24 21:06 10/04/24 21:06 Narrative: GEN: Awake, alert, oriented x 3. Head: Normal Cephalic, Atraumatic. Eyes: Conjunctiva and sclera clear bilaterally. Nose: External nose and nares normal bilaterally. Mouth: Lips and tongue normal. Neck: No JVD. No thyromegaly. No lymphadenopathy. Lungs: Clear to auscultation bilaterally, no wheezing, no crackles. Heart: Regular rate and rhythm, no murmurs, rubs, or gallops. Abdomen: Mild tenderness to palpation of the left lower quadrant. Small area where the drain had been does not have any cellulitis around it. The gauze overthis does have very brown purulent drainage onto the gauze. No acute peritonealsigns. Bowel sounds normal to auscultation. Lower extremities: No swelling or cords in the calves bilaterally, no edema in the ankles bilaterally. Right foot: Very very mild light pink over the top part of his foot over the tendons going to the 3rd and 4th toe. No streaking of cellulitis of the foot. Very mild light pink color to the skin over the lateral malleolus. This is not very hot to the touch. It is not very edematous. Skin: No systemic rashes or lesions. Psychiatric: Calm. Conversant. Cooperative. Neuro: Awake, Alert, and Oriented x 3. No focal or lateralizing deficits. Results - Hospitalist H&P Lab Results Labs: Laboratory Last Values Corrected WBC 18.1 X10E3/uL (4.1-10.5) H 10/04/24 18:29 Uncorrected WBC Count 18.1 x10E3/uL (4.1-10.5) H 10/04/24 18: RBC 4.73 x10E6/uL (3.90-5.60) 10/04/24 18: Hgb 13.6 g/dL (13.0-17.0) 10/04/24 18: Hct 41.3 % (38.8-50.0) 10/04/24 18: MCV 87.3 fl (83.5-101) 10/04/24 18: MCH 28.7 pg (27.5-35.2) 10/04/24 18: MCHC 32.9 g/dL (32.5-35.6) 10/04/24 18: RDW 14.0 % (12.0-14.8) 10/04/24 18: Plt Count 247 x10E3/uL (150-450) 10/04/24 18: MPV 9.1 fl (6.6-10.1) 10/04/24 18: Neut % (Auto) 84.7 % (.) 10/04/24 18: Lymph % (Auto) 6.8 % (.) 10/04/24 18: Moody % (Auto) 8.0 % (.) 10/04/24 18: Eos % (Auto) 0.1 % (.) 10/04/24 18: Baso % (Auto) 0.4 % (.) 10/04/24 18: Nucleat RBC Rel Count 0.1 /100 WBC (0-0.5) 10/04/24 18: Neut # (Auto) 15.4 x10E3/uL (1.8-7.7) H 10/04/24 18: Lymph # (Auto) 1.2 x10E3/uL (1.00-4.8) 10/04/24 18: Moody # (Auto) 1.4 x10E3/uL (0.0-0.8) H 10/04/24 18: Eos # (Auto) 0.0 x10E3/uL (0.0-0.45) 10/04/24 18: Baso # (Auto) 0.1 x10E3/uL (0.0-0.2) 10/04/24 18: Monocyte Dist Width 19.07 % (0.00-20.00) 10/04/24 18: PHA Creatinine Clear 79.73 10/04/24 18: Sodium 134 mmol/L (136-145) L 10/04/24 18: Potassium 4.1 mmol/L (3.5-5.1) 10/04/24 18: Chloride 100 mmol/L (98-107) 10/04/24 18: Carbon Dioxide 26.9 mmol/L (21.0-31.0) 10/04/24 18:29 Anion Gap 11.2 mEq/L (6.0-15.0) 10/04/24 18:29 BUN 17 mg/dL (7-25) 10/04/24 18:29 Creatinine 0.79 mg/dL (0.70-1.30) 10/04/24 18:29 Est GFR (CKD-EPI) > 60.0 mL/Min 10/04/24 18:29 Glucose 123 mg/dL (70-100) H 10/04/24 18:29 Lactic Acid 1.1 mmol/L (0.5-1.9) 10/04/24 18: Calcium 9.5 mg/dL (8.6-10.3) 10/04/24 18: Total Bilirubin 0.7 mg/dl (0.3-1.0) 10/04/24 18: AST 15 U/L (13-39) 10/04/24 18:29 ALT 20 U/L (7-52) 10/04/24 18: Alkaline Phosphatase 94 U/L (34-104) 10/04/24 18:29 Total Protein 8.1 gm/dL (6.4-8.9) 10/04/24 18: Albumin 4.2 gm/dL (3.5-5.7) 10/04/24 18: Globulin 3.9 gm/dL 10/04/24 18: Albumin/Globulin Ratio 1.1 10/04/24 18:29 Lipase 13.0 U/L (11.0-82.0) 10/04/24 18:29 Assessment & Plan Assessment/Plan (1) Inguinal abscess: (2) Right foot pain: (3) ASHD (arteriosclerotic heart disease): (4) Chronic HFrEF (heart failure with reduced ejection fraction): Plan Assessment: Left inguinal abscess, which appears to have a fistulous connection. This is a recurrent problem. History of Pseudomonas isolated from that back in early August. Incidental new problem of right foot pain. Uncertain if this is gout or other form of osteoarthritis. Right now very low clinical suspicion of actual infection of any other joints in the foot. Atherosclerotic coronary artery disease. Chronic heart failure with reduced ejection fraction. Plan: Hospital admission, inpatient status. N.p.o. after midnight in case of any surgery tomorrow. IV meropenem. Continue IV vancomycin that was started in emergency room. The ER did send blood cultures and culture of the drainage. Consult podiatry. Gentle IV fluids overnight. Sleeve compression devices for DVT prophylaxis. Can start medicines for DVT prophylaxis after surgery. He can continue all of his home medications but we will hold aspirin 81 mg daily. Care will be provided by my hospitalist colleagues taking over during the daytime. IP vs OBS Justification Based on differential dx, clinical care plan, and risk of adverse events, if untreated, in my clinical judgement this patient requires an acute care setting as: INPATIENT because of an expectation of an over 2 midnight stay. Estimated length of stay (# of days): 3 Documented By: Navarro Ballesteros DO [id number] Signed By: <Electronically signed by Navarro Ballesteros DO> 10/04/242230 [facility] Work Phone: [phone] [place] [address] Progress Note Signed Patient: Domo Piña MR#: [id number] : 1960 Acct:[id number] Age/Sex: 64 / M Adm Date: 5 Loc: Room: [address] [place] [address] Type: ADM IN Attending Dr: Navarro Ballesteros DO Copies to: ~ Date of Service: 10/04/2024 Quality Measures SEPSIS Tissue perfusion reassessment (select if applicable): Tissue perfusion reassessed after bolus given FOCUSED EXAM Capillary refill: Capillary refill < 3 seconds Peripheral pulses: Pulses present bilaterally Skin color/condition: Skin normal for ethnicity Documented By: Navarro Ballesteros DO 2236 Signed By: 10/04/242236 [facility]07-15-2025 [place] [address] Hospitalist H&P Signed Patient: Domo Piña MR#: [id number] : 1960 Acct:[id number] Age/Sex: 64 / M Adm Date: 5 Loc: 3T Room: [address] [place] [address] Type: ADM IN Attending Dr: Navarro Ballesteros DO Copies to: DO Navarro Grewal, ~ HPI DATE OF EXAMINATION: 10/04/24 CHIEF COMPLAINT: Drainage from wound in left lower quadrant. HISTORY OF PRESENT ILLNESS: I am asked to admit this patient on behalf of general surgery with Dr. Ines Wayne. This is a 64-year-old man who came to the emergency room today with worsening drainage from a 6-week old previous CT scan drainage site in his left lower quadrant. Back on August 26, 2024 Dr. Patel was taking care of the patient for diverticulitis and abscess in the sigmoid colon region. On 08/22/[address]-guided catheter placed. During that hospitalstay he was treated with IV Rocephin and Flagyl. He was discharged home with a catheter in place. Sh orttime after his discharge cultures came back showing that the wound was growing Pseudomonas. At that point Levaquin was called in. The patient was in the general surgery office of Dr. Wayne yesterday. He says that yesterday evening and last night he began to feel really bad. And he had an episode of diarrhea. His says that the previous catheter insertion site has been draining a lot of purulent material, especially over the last 7 days. They completed the antibiotic with Levaquin about 7 days ago. Additionally, last night, the patient began having pain on his right foot. Thisis on the top part of the foot by the tendons and also on the lateral ankle region. He has never had anything like that.He has never had gout before -perhis report. In the ER this evening he had a follow-up CT scan of the abdomen pelvis that showed: Persistent fatstranding is noted with an extraluminal collection evacuating along the junction of the descending colon and sigmoid colon which appears to have a fistulous connection to a small left inguinal abscess. There is a fistulous tract to an area of skin thickening along the previous drainage site. The drain has been removed. The area of abscess measures 2.3 x 1.6 x 2.8cm in greatest dimension along theleft inguinal wall. The ER did make contact with general surgery with Dr. Wayne, who asked for the hospitalist to admit the patient overnight. The ER did give IV vancomycin and IV Zosyn. However on the Pseudomonas culture from back on August 22 the Pseudomonas was IB with intermediate beta lactamase resistance to the Zosyn, so I have ordered IV meropenem. Review of Systems Review of Systems Review of systems: 10 systems are reviewed and are negative except as mentioned elsewhere in the documentation. [facility] Medical History Diverticulitis of intestine with perforation and abscess Colonic diverticular abscess Acute diverticulitis Perforation of sigmoid colon due to diverticulitis Ischemic cardiomyopathy LHC: occluded RCA, occluded OM branch, mod LAD - 04/2022, Echo: LVEF 45%, normal RV size/function - 07/2023 Vasomotor rhinitis Sinus tachycardia Screening PSA (prostate specific antigen) Primary osteoarthritis, unspecified shoulder (06/04/18) Positive colorectal cancer screening using Cologuard test Other fecal abnormalities Hollenhorst plaque, left eye Encounter for screening for malignant neoplasm of prostate Encounter for screening for malignant neoplasm of colon (06/05/18) Depression screening COVID Cigarette nicotine dependence, uncomplicated Cigarette nicotine dependence without complication Branch retinal vein occlusion of left eye with macular edema Acute maxillary sinusitis, unspecified (04/24/17) Acute bronchitis due to other specified organisms Nicotine addiction Chronic HFrEF (heart failure with reduced ejection fraction) Echocardiogram: LVEF 40% - 2022, Echo: LVEF 40-50% - 2023 Surgical History H/O colonoscopy (~04/2022) History of left heart catheterization (LHC) (~04/2022) Moderate coronary disease LAD, POST GRADUATE INTERN RCA, POST GRADUATE INTERN OM Family History Father Hypertension Diabetes Mother Social History Smoking Status: Former smoker Substance Use Type: None Current Occupational Status Other:: smoked 1 ppd from 1976 to 2023. About a 27 pack year smoking history. Meds Medications and Allergies Allergies No Known Allergies Allergy (Verified 10/04/24 19:05) Home Medications aspirin 81 mg tablet,delayed release 81 mg PO DAILY 04/10/24 [History Confirmed 10/04/24] atorvastatin 80 mg tablet 80 mg PO QPM 04/10/24 [History Confirmed 10/04/24] losartan 25 mg tablet 25 mg PO HS 04/10/24 [History Confirmed 10/04/24] metoprolol succinate 100 mg tablet,extended release 24 hr 100 mg PO HS 04/10/24 [History Confirmed 10/04/24] spironolactone 25 mg tablet 25 mg PO QAM 04/10/24 [History Confirmed 10/04/24] acetaminophen 325 mg tablet (Tylenol) 650 mg (2 x 325 mg) PO Q6HR PRN Pain Scale1 - 3 or fever 15 days #60 tabs 08/24/24 [Rx Confirmed 10/04/24] Exam Physical Exam Vital Signs: Temp Pulse Resp BP Pulse Ox O2 Del Method 98.3 F 101 H 16 91/55 L 98 Room Air 10/04/24 17:23 10/04/24 21:06 10/04/24 21:06 10/04/24 21:06 10/04/24 21:06 10/04/24 21:06 Narrative: GEN: Awake, alert, oriented x 3. Head: Normal Cephalic, Atraumatic. Eyes: Conjunctiva and sclera clear bilaterally. Nose: External nose and nares normal bilaterally. Mouth: Lips and tongue normal. Neck: No JVD. No thyromegaly. No lymphadenopathy. Lungs: Clear to auscultation bilaterally, no wheezing, no crackles. Heart: Regular rate and rhythm, no murmurs, rubs, or gallops. Abdomen: Mild tenderness to palpation of the left lower quadrant. Small area where the drain had been does not have any cellulitis around it. The gauze overthis does have very brown purulent drainageonto the gauze. No acute peritonealsigns. Bowel sounds normal to auscultation. Lower extremities: No swelling or cords in the calves bilaterally, no edema in the ankles bilaterally. Right foot: Very very mild light pink over the top part of his foot over the tendons going to the 3rd and 4th toe. No streaking of cellulitis of the foot. Very mild light pink color to the skin over the lateral malleolus. This is not very hot to the touch. It is not very edematous. Skin: No systemic rashes or lesions. Psychiatric: Calm. Conversant. Cooperative. Neuro: Awake, Alert, and Oriented x 3. No focal or lateralizing deficits. Results - Hospitalist H&P Lab Results Labs: Laboratory Last Values Corrected WBC 18.1 X10E3/uL (4.1-10.5) H 10/04/24 18: Uncorrected WBC Count 18.1 x10E3/uL (4.1-10.5) H 10/04/24 18: RBC 4.73 x10E6/uL (3.90-5.60) 10/04/24 18: Hgb 13.6 g/dL (13.0-17.0) 10/04/24 18: Hct 41.3 % (38.8-50.0) 10/04/24 18: MCV 87.3 fl (83.5-101) 10/04/24 18: MCH 28.7 pg (27.5-35.2) 10/04/24 18: MCHC 32.9 g/dL (32.5-35.6) 10/04/24: RDW 14.0 % (12.0-14.8) 10/04/24: Plt Count 247 x10E3/uL (150-450) 10/04/24: MPV 9.1 fl (6.6-10.1) 10/04/24: Neut % (Auto) 84.7 % (.) 10/04/24: Lymph % (Auto) 6.8 % (.) 10/04/24: Moody % (Auto) 8.0 % (.) 10/04/24: Eos % (Auto) 0.1 % (.) 10/04/24: Baso % (Auto) 0.4 % (.) 10/04/24: Nucleat RBC Rel Count 0.1 /100 WBC (0-0.5) 10/04/24: Neut # (Auto) 15.4 x10E3/uL (1.8-7.7) H 10/04/24 18: Lymph # (Auto) 1.2 x10E3/uL (1.00-4.8) 10/04/24 18: Moody # (Auto) 1.4 x10E3/uL (0.0-0.8) H 10/04/24 18:29 Eos # (Auto) 0.0 x10E3/uL (0.0-0.45) 10/04/24 18:29 Baso # (Auto) 0.1 x10E3/uL (0.0-0.2) 10/04/24 18: Monocyte Dist Width 19.07 % (0.00-20.00) 10/04/24 18: PHA Creatinine Clear 79.73 10/04/24 18: Sodium 134 mmol/L (136-145) L 10/04/24 18: Potassium 4.1 mmol/L (3.5-5.1) 10/04/24 18: Chloride 100 mmol/L (98-107) 10/04/24 18: Carbon Dioxide 26.9 mmol/L (21.0-31.0) 10/04/24 18: Anion Gap 11.2 mEq/L (6.0-15.0) 10/04/24 18: BUN 17 mg/dL (7-25) 10/04/24 18: Creatinine 0.79 mg/dL (0.70-1.30) 10/04/24 18:29 Est GFR (CKD-EPI) > 60.0 mL/Min 10/04/24 18: Glucose 123 mg/dL (70-100) H 10/04/24 18: Lactic Acid 1.1 mmol/L (0.5-1.9) 10/04/24 18: Calcium 9.5 mg/dL (8.6-10.3) 10/04/24 18: Total Bilirubin 0.7 mg/dl (0.3-1.0) 10/04/24 18: AST 15 U/L (13-39) 10/04/24 18: ALT 20 U/L (7-52) 10/04/24 18: Alkaline Phosphatase 94 U/L (34-104) 10/04/24 18: Total Protein 8.1 gm/dL (6.4-8.9) 10/04/24 18: Albumin 4.2 gm/dL (3.5-5.7) 10/04/24 18: Globulin 3.9 gm/dL 10/04/24 18: Albumin/Globulin Ratio 1.1 10/04/24 18:29 Lipase 13.0 U/L (11.0-82.0) 10/04/24 18:29 Assessment & Plan Assessment/Plan (1) Inguinal abscess: (2) Right foot pain: (3) ASHD (arteriosclerotic heart disease): (4) Chronic HFrEF (heart failure with reduced ejection fraction): Plan Assessment: Left inguinal abscess, which appears to have a fistulous connection. This is a recurrent problem. History of Pseudomonas isolated from that back in early August. Incidental new problem of right foot pain. Uncertain if this is gout or other form of osteoarthritis. Right now very low clinical suspicion of actual infection of any other joints in the foot. Atherosclerotic coronary artery disease. Chronic heart failure with reduced ejection fraction. Plan: Hospital admission, inpatient status. N.p.o. after midnight in case of any surgery tomorrow. IV meropenem. Continue IV vancomycin that was started in emergency room. The ER did send blood cultures and culture of the drainage. Consult podiatry. Gentle IV fluids overnight. Sleeve compression devices for DVT prophylaxis. Can start medicines for DVT prophylaxis after surgery. He can continue all of his home medications but we will hold aspirin 81 mg daily. Care will be provided by my hospitalist colleagues taking over during the daytime. IP vs OBS Justification Based on differential dx, clinical care plan, and risk of adverse events, if untreated, in my clinical judgement this patient requires an acute care setting as: INPATIENT because of an expectation ofan over 2 midnight stay. Estimated length of stay (# of days): 3 Documented By: Navarro Ballesteros DO 2218 Signed By: 10/04/242230 [facility]07-15-2025 Radiology Diagnostic study note [facility] Main [place] [address] [place] [address] CT Scan Report Signed Patient: Domo Piña MR#: [id number] : 1960 Acct:[id number] Age/Sex: 64 / M ADM Date: 5 Loc: ER Room: Type: [facility] ER Attending Dr: Copies to: Kanwal Koroma APRN~ Ordering Provider: Kanwal Koroma APRN Date of Service: 10/04/24 CT/CT abdomen pelvis w con: pain left inguinal region. History of abscess CT abdomen pelvis w con 10/04/2024 7:16 PM SIGNS AND SYMPTOMS: Left inguinal pain, history of perforated diverticulitis with abscess formationand history of left groin abscess status post drain placement. Continued drainage from site. TECHNIQUE: Multidetector ct axial images of the abdomen and pelvis were obtainedwith IV contrast. Multiplanar reformats were performed and reviewed to further define anatomy and possible pathology. CT was performed with one or more of thefollowing dose reduction techniques: Automated exposure control, adjustment of the mA and/or kV according to patient size, or use of iterative reconstruction technique. COMPARISON: 09/08/2024 FINDINGS: Lower Chest: Atherosclerotic changes are noted in the thoracic aorta. There is dependent scarring or atelectasis in the lung bases. ABDOMEN: Liver: The liver is hypoattenuating suggesting hepatic steatosis. Bile Ducts: Normal caliber. Gallbladder: No calcified gallstones. Normal caliber wall. Pancreas: Within normal limits. Spleen: Within normal limits. Adrenals: Within normal limits. Kidneys: Within normal limits. Pelvis: Reproductive Organs: No pelvic masses. Ureters: Within normal limits. Bladder: Within normal limits. Bowel: There is similar wall thickening in the sigmoid colon. There are uncomplicated colonic diverticula. Persistent fat stranding is noted with an extraluminal collection evacuating along the junction of the descending colon and sigmoid colon which appears to have a fistulous connection to a small left inguinal abscess. There is a fistulous tract to an area of skin thickening along the previousdrainage site. The drain has been removed. The area of abscess measures 2.3 x 1.6 x 2.8 cm in greatest dimension along the left inguinal wall. Mesenteric Lymph Nodes: No enlarged mesenteric lymph nodes. Peritoneum: No ascites or free air, no fluid collection. Vessels: Atherosclerotic changes are noted in the abdominal aorta and its branches. Retroperitoneum: Within normal limits. Abdominal Wall: As above. There are a few mildly prominent inguinal lymph nodeson the left which are presumably reactive in nature. Bones: Degenerative changes are noted in the thoracolumbar spine and hips. CT/CT abdomen pelvis w con IMPRESSION: Persistent fat stranding is noted with an extraluminal collection evacuating along the junction of the descending colon and sigmoid colon which appears to havea fistulous connection to a small left inguinal abscess. There is a fistulous tract to an area of skin thickening along the previous drainage site. The drainhas been removed. The area of abscess measures 2.3 x 1.6 x 2.8 cm in greatest dimension along the left inguinal wall. Impression dictated by: Alex Leyva M.D. 10/04/2024 7:31 PM Dictation Location: [facility]--17 Transcribed By: MAGALY 10/04/241930 Dictated By: Alex Leyva II, MD 10/04/241924 Signed By: 10/04/241930 [facility] Work Phone: [phone] 108-206907-14-2025 History of Present illness Narrative* Ines Mendoza MD - 10/03/2024 9:45 AM EDT Images from the original note were not included. The patient had his pigtail catheter removed from his diverticular abscess site about 3 weeks ago. He still has had some drainage from the site. It is not foul smelling. Denies abdominal pain. He is eating. He is moving his bowels. On examination, he is awake alert and in no acute distress. Abdomen is soft, nondistended. Left lower quadrant drain site shows some hypertrophic granulation tissue. There is a small amount of clear to whitish drainage. There is no surrounding erythema or induration. The hypertrophic granulation tissue was treated with silver nitrate. Dry dressing is placed. 1. Hypertrophic granulation tissue 2. Diverticulitis of large intestine with perforation and abscess without bleeding The patient can keep a dry dressing over the site until there is no drainage. He will follow up in about 2 weeks. Next appointment: 10/17/2024 documented in this encounterNevada Regional Medical [id number] Progress note Author Navarro Ballesteros [facility] Note Date/Time October 04, 2024 10:3 7pm [facility] [address] [place] [address] Progress Note Signed Patient: Domo Piña MR#: [id number] : 1960 Acct:[id number] Age/Sex: 64 / M Adm Date: 5 Loc: Room: [address] [place] [address] Type: ADM IN Attending Dr: Navarro Ballesteros DO Copies to: ~ Date of Service: 10/04/2024 Quality Measures SEPSIS Tissue perfusion reassessment (select if applicable): Tissue perfusion reassessed after bolus given FOCUSED EXAM Capillary refill: Capillary refill < 3 seconds Peripheral pulses: Pulses present bilaterally Skin color/condition: Skin normal for ethnicity Documented By: Navarro Ballesteros DO 2236 Signed By: <Electronically signed by Navarro Ballesteros DO> 10/04/242236 [facility] Work Phone: 1([phone]) 134-631706-25-2025 History of Present illness Narrative* Ines Mendoza MD - 09/14/2024 11:15 AM EDT Images from the original note were not included. The patient did have CT of the abdomen and pelvis performed. This showed inflammation in the left groin but no fluid collection. There has been minimal drainage from the pigtail catheter in the left lower abdomen. Patient denies fevers. He has been eating. He is moving his bowels. On examination, he is awake alert and in no acute distress. Abdomen is soft, nondistended. The pigtail catheter was removed without difficulty. Dry dressing is placed over the site. 1. Diverticulitis of large intestine with perforation and abscess without bleeding Patient can keep a dry dressing over the previous drain site until there is no drainage. The records from March 2022 from [place] I reviewed. The patient did have a colonoscopy to the sigmoid colon. Patient was noted to have a tortuous sigmoid colon with diverticulosis. Follow-up barium enema showed no masses or polyps. The tortuosity of the sigmoid colon as well as the diverticulosis was noted. Patient will follow up here in about 3-4 weeks. Next colonoscopy around 2027 unless patient has further colonic symptoms. Next appointment: 10/12/2024 documented in this encounterNevada Regional Medical [id number] History of Present illness Narrative* Ines Mendoza MD - 08/31/2024 10:15 AM EDT Images from the original note were not included. The patient is a follow-up from the hospital. He was seen for acute sigmoid diverticulitis with a diverticular abscess. He did have a CT-guided drainage of the abscess performed. The catheter did kink and was on kinked in the office a couple days ago. There has been about 5 ml of dark purulent drainage every 12 hours from the drain. Patient is eating. He is moving his bowels. He is not having much pain. Antibiotics were changed from Augmentin to Levaquin because his culture grew Pseudomonas. On examination, he is awake alert and in no acute distress. Abdomen is soft. Drain is in place. Previously noted abscess palpable underneath the skin is softer. There is no surrounding erythema or induration. 1. Diverticulitis of large intestine with perforation and abscess without bleeding 2. Colonic diverticular abscess Plan will be to obtain a follow up CT scan of the abdomen and pelvis to check the resolution of theabscess and diverticulitis. Patient will complete his course of antibiotics. He will follow up following the CT scan. The patient did have a colonoscopy performed about 2 years ago in [place]. Apparently, scope could not be passed through the whole colon and the patient had a follow-up barium enema. We will attempt to obtain both reports. Next appointment: 09/14/2024 documented in this encounterNevada Regional Medical [id number] History of Present illness Narrative* Sandhya Coughlin LPN - 08/29/2024 1:15 PM EDT Pt.'s concerned of drainage coming out of drain site. Drainage seen under dressing. She wasn'tsure what to do. I had patient come into office. I removed the dressing. There was a kink in the tubing. I cleaned around insertion site with NS. Applied clean dressing and applied a piece of tape tokeep tubing from kinking. Thick yellow drainage present in bulb. Pt. Has follow up appointment withDr. Wayne this Thursday. They will contact our office if any changes before than. documented in this encounterNevada Regional Medical [id number] Progress note Author Ines Wayne [facility] Note Date/Time August 23, 2024 7:52p m [facility] [address] [place] [address] General Surgery Progress Note Signed Patient: Domo Piña MR#: [id number] : 1960 Acct:[id number] Age/Sex: 64 / M Adm Date: 5 Loc: Room: [address] [place] [address] Type: ADM IN Attending Dr: nEoc Zepeda DO Copies to: ~ Date of Service: 08/23/2024 Subjective Subjective Patient reports: no new complaints, feels better, pain is less, tolerating liquids well, tolerating a regular diet, voiding w/o difficulty, flatus, no bowel movement and afebrile HPI: Patient is hospital day #2 for diverticulitis with abscess. He underwent CT- guided drainage of abscess yesterday. Patient denies any new symptoms such as abdominal pain, fevers, vomiting. He has been eating normally. White blood cell count 11,000 Allergies & Medications Medications and Allergies Allergies No Known Allergies Allergy (Verified 08/21/24 11:22) Home Medications aspirin 81 mg tablet,delayed release 81 mg PO DAILY 04/10/24 [History Confirmed 08/21/24] atorvastatin 80 mg tablet 80 mg PO QPM 04/10/24 [History Confirmed 08/21/24] losartan 25 mg tablet 25 mg PO HS 04/10/24 [History Confirmed 08/21/24] metoprolol succinate 100 mg tablet,extended release 24 hr 100 mg PO HS 04/10/24 [History Confirmed 08/21/24] spironolactone 25 mg tablet 25 mg PO QAM 04/10/24 [History Confirmed 08/21/24] Active Medications Acetaminophen (Acetaminophen 325 Mg Tablet) 650 mg PO Q6HR PRN PRN Reason: Pain Scale 1 - 3 or fever Stop: 08/21/25 14:10 Last Admin: 08/23/24 00:38 Dose: 650 mg Aspirin (Aspirin 81 Mg Tablet.) 81 mg PO [facility] Stop: 08/21/25 21:59 Last Admin: 08/22/24 21:05 Dose: Not Given Atorvastatin Calcium (Atorvastatin 80 Mg Tablet) 80 mg PO QPM [facility] Stop: 08/21/25 20:59 Last Admin: 08/22/24 20:15 Dose: 80 mg Heparin Sodium (Porcine) (Heparin 5,000 Unit/Ml Vial) 5,000 unit SUBCUT Q12HR [facility] Stop: 08/21/25 20:59 Last Admin: 08/23/24 09:09 Dose: 5,000 unit Ceftriaxone Sodium (Rocephin) 2 gm in 50 mls @ 100 mls/hr IV Q24H [facility] Last Admin: 08/23/24 09:08 Dose: 100 mls/hr Metronidazole (Flagyl) 500 mg in 100 mls @ 100 mls/hr IV Q8H [facility] Last Infusion: 08/23/24 02:06 Dose: Infused Magnesium Sulfate (Magnesium Sulf 2gm-*Swfi*) 2 gm in 50 mls @ 25 mls/hr IV ONCE ONE Stop: 08/23/24 10:12 Losartan Potassium (Losartan 25 Mg Tablet) 25 mg PO HS [facility] Stop: 08/21/25 21:59 Last Admin: 08/22/24 21:05 Dose: Not Given Metoprolol Succinate (Metoprolol Succinate 100 Mg Tab.Er.24h) 100 mg PO [facility] Stop: 08/21/25 21:59 Last Admin: 08/22/24 21:05 Dose: Not Given Morphine Sulfate (Morphine Sulfate 2 Mg/Ml Vial) 2 mg IV-PUSH Q4H PRN PRN Reason: Pain Scale 8 - 10 Pantoprazole Sodium (Pantoprazole 40 Mg Vial) 40 mg IV-PUSH DAILY [facility] Stop: 08/22/25 08:59 Last Admin: 08/23/24 08:55 Dose: 40 mg Prochlorperazine Edisylate (Prochlorperazine Edisylate 10 Mg/2 Ml Vial) 5 mg IV- PUSH Q4H PRN PRN Reason: Nausea And Vomiting Stop: 08/21/25 14:10 Sodium Chloride (Sodium Chloride 0.9 % 10 Ml Syringe) 0 ml IV-PUSH PRN PRN PRN Reason: Flush Stop: 08/21/25 11:20 Sodium Chloride (Sodium Chloride 0.9 % 10 Ml Vial.Pf) 10 ml INJECTION PRN PRN PRN Reason: Dilution Stop: 08/21/25 14:10 Last Admin: 08/23/24 08:55 Dose: 10 ml Sodium Chloride (Sodium Chloride 0.9 % 10 Ml Syringe) 10 ml IV-PUSH PRN PRN PRN Reason: Flush Stop: 08/21/25 14:10 Spironolactone (Spironolactone 25 Mg Tablet) 25 mg PO QAM [facility] Stop: 08/22/25 08:59 Last Admin: 08/23/24 09:10 Dose: 25 mg Exam Physical Exam Vital Signs: Temp Pulse Resp BP Pulse Ox O2 Del Method 97.6 F 85 14 108/73 94 L Room Air 08/23/24 07:13 08/23/24 07:13 08/23/24 07:13 08/23/24 07:13 08/23/24 07:13 08/23/24 07:29 Const General: cooperative and comfortable Orientation: alert, awake and oriented x3 Resp Effort & Inspection: normal respiratory effort Auscultation: clear to auscultation bilaterally Cardio Rate: regular rate Rhythm: regular rhythm Heart Sounds: S1 normal and S2 normal GI Inspection: non-distended Palpation: soft, no guarding and nontender Auscultation: normal bowel sounds Other: Left lower quadrant drain with some dark purulent fluid Neuro General: patient alert, patient awake and patient oriented x3 Extrem General: no clubbing, cyanosis or edema, no pedal edema and no calf tenderness Psych Appearance: grossly normal Mental Status: mental status grossly normal Mood: congruent mood Affect: normal affect Objective Pain Assessment Groin: Pain Description: Dull Pain Intensity: 3 Intake & Output 24 hour I&O: Intake & Output 08/22/24 08/23/24 08/23/24 23:59 07:59 15:59 Intake Total 350 / 760 500 / 500 Output Total Balance 350 / 760 475 / 475 Weight 68.3 kg Labs 08/23/24 06:19 08/23/24 06:19 Laboratory Results - Last 48 hrs. 08/23/24 06:19: Corrected WBC 11.0 H, Uncorrected WBC Count 11.0 H, RBC 4.30, Hgb 12.2 L, Hct 36.9 L, MCV 85.7, MCH 28.4, MCHC 33.2, RDW 13.7, Plt Count 283, MPV 8.4, Neut % (Auto) 63.9, Lymph % (Auto) 21.5, Moody % (Auto) 9.5, Eos % (Auto) 3.9, Baso % (Auto) 1.2, Nucleat RBC Rel Count 0.0, Neut # (Auto) 7.0, Lymph # (Auto) 2.4, Moody # (Auto) 1.1 H, Eos # (Auto) 0.4, Baso # (Auto) 0.1, PHA Creatinine Clear 83.07, Sodium 138, Potassium 4.0, Chloride 104, Carbon Dioxide 27.7, Anion Gap 10.3, BUN 13, Creatinine 0.63 L, Est GFR (CKD-EPI) > 60.0, Glucose 100, Calcium 8.6, Magnesium 1.7 L 08/22/24 06:48: Corrected WBC 11.5 H, Uncorrected WBC Count 11.5 H, RBC 4.55, Hgb 13.2, Hct 38.7 L, MCV 85.1, MCH 29.1, MCHC 34.1, RDW 13.8, Plt Count 275, MPV 8.7, Neut % (Auto) 67.8, Lymph % (Auto) 19.9, Moody % (Auto) 9.4, Eos % (Auto) 2.3, Baso % (Auto) 0.6, Nucleat RBC Rel Count 0.1, Neut # (Auto) 7.8 H, Lymph # (Auto) 2.3, Moody # (Auto) 1.1 H, Eos # (Auto) 0.3, Baso # (Auto) 0.1, PT12.3, INR 1.1, APTT 30.2, PHA Creatinine Clear 83.07, Sodium 136, Potassium 4.0,Chloride 100, Carbon Dioxide 29.2, Anion Gap 10.8, BUN 13, Creatinine 0.67 L, Est GFR (CKD-EPI) > 60.0, Glucose 100, Calcium 8.8, Total Bilirubin 0.4, AST 14,ALT 16, Alkaline Phosphatase 76, Total Protein 7.0, Albumin 3.7, Globulin 3.3, Albumin/Globulin Ratio 1.1 08/21/24 16:15: Urine Color Yellow, Urine Appearance Cloudy A, Urine pH 7.0, Ur Specific [place] 1.041 H, Urine Protein 20 H, Urine Glucose (UA) Normal, Urine Ketones Trace H, Urine Occult Blood Negative, Urine Nitrite Negative, Urine Bilirubin Negative, Urine Urobilinogen Normal, Ur Leukocyte Esterase Negative, Urine RBC 3-4, Urine WBC 3-4, Ur Squamous Epith Cells 1-2, Urine Bacteria None seen, Hyaline Casts None, Urine Mucus Rare 08/21/24 11:45: Corrected WBC 16.1 H, Uncorrected WBC Count 16.1 H, RBC 4.70, Hgb 13.7, Hct 40.4, MCV 85.8, MCH 29.0, MCHC 33.8, RDW 13.8, Plt Count 275, MPV 8.5, Neut % (Auto) 81.5, Lymph % (Auto) 10.6, Moody % (Auto) 6.8, Eos % (Auto) 0.6, Baso % (Auto) 0.5, Nucleat RBC Rel Count 0.0, Neut # (Auto) 13.1 H, Lymph #(Auto) 1.7, Moody # (Auto) 1.1 H, Eos # (Auto) 0.1, Baso # (Auto) 0.1, Monocyte Dist Width 19.38, PHA Creatinine Clear 83.07, Sodium 137, Potassium 3.7, Chloride 102, Carbon Dioxide 25.3, Anion Gap 13.4, BUN 19, Creatinine 0.78, Est GFR (CKD-EPI) > 60.0, Glucose 166 H, Calcium 9.5, Total Bilirubin 0.4, Direct Bilirubin 0.10, Indirect Bilirubin 0.3, AST 16, ALT 19, Alkaline Phosphatase 87,Total Protein 7.6, Albumin 4.0, Globulin 3.6, Albumin/Globulin Ratio 1.1, [id number] A&P - General Surgery Assessment/Plan (1) Diverticulitis large intestine: Qualifiers: Diverticulitis bleeding: without bleeding Diverticulitis complication: with abscess Qualified Code(s): K57.20 - Diverticulitis of large intestine withperforation and abscess without bleeding Plan Cultures from abscess pending. WBC count decreasing. Follow drain output. Continue antibiotics. Continue low fiber diet. Documented By: Ines Wayne MD 08/23/24 0949 Signed By: <Electronically signed by MD Ines Wayne> 08/23/241951 [facility] Work Phone: [phone] 817-929606-03-2025 [place] [address] General Surgery Progress Note Signed Patient: Domo Piña MR#: [id number] : 1960 Acct:[id number] Age/Sex: 64 / M Adm Date: 5 Loc: Room: [address] [place] [address] Type: ADM IN Attending Dr: Enoc Zepeda DO Copies to: ~ Date of Service: 08/23/2024 Subjective Subjective Patient reports: no new complaints, feels better, pain is less, tolerating liquids well, toleratinga regular diet, voiding w/o difficulty, flatus, no bowel movement and afebrile HPI: Patient is hospital day #2 for diverticulitis with abscess. He underwent CT- guided drainage of abscess yesterday. Patient denies any new symptoms such as abdominal pain, fevers, vomiting. He has been eating normally. White blood cell count 11,000 Allergies & Medications Medications and Allergies Allergies No Known Allergies Allergy (Verified 08/21/24 11:22) Home Medications aspirin 81 mg tablet,delayed release 81 mg PO DAILY 04/10/24 [History Confirmed 08/21/24] atorvastatin 80 mg tablet 80 mg PO QPM 04/10/24 [History Confirmed 08/21/24] losartan 25 mg tablet 25 mg PO HS 04/10/24 [History Confirmed 08/21/24] metoprolol succinate 100 mg tablet,extended release 24 hr 100 mg PO HS 04/10/24 [History Confirmed 08/21/24] spironolactone 25 mg tablet 25 mg PO QAM 04/10/24 [History Confirmed 08/21/24] Active Medications Acetaminophen (Acetaminophen 325 Mg Tablet) 650 mg PO Q6HR PRN PRN Reason: Pain Scale 1 - 3 or fever Stop: 08/21/25 14:10 Last Admin: 08/23/24 00:38 Dose: 650 mg Aspirin (Aspirin 81 Mg Tablet.) 81 mg PO HS [facility] Stop: 08/21/25 21:59 Last Admin: 08/22/24 21:05 Dose: Not Given Atorvastatin Calcium (Atorvastatin 80 Mg Tablet) 80 mg PO QPM [facility] Stop: 08/21/25 20:59 Last Admin: 08/22/24 20:15 Dose: 80 mg Heparin Sodium (Porcine) (Heparin 5,000 Unit/Ml Vial) 5,000 unit SUBCUT Q12HR [facility] Stop: 08/21/25 20:59 Last Admin: 08/23/24 09:09 Dose: 5,000 unit Ceftriaxone Sodium (Rocephin) 2 gm in 50 mls @ 100 mls/hr IV Q24H [facility] Last Admin: 08/23/24 09:08 Dose: 100 mls/hr Metronidazole (Flagyl) 500 mg in 100 mls @ 100 mls/hr IV Q8H [facility] Last Infusion: 08/23/24 02:06 Dose: Infused Magnesium Sulfate (Magnesium Sulf 2gm-*Swfi*) 2 gm in 50 mls @ 25 mls/hr IV ONCE ONE Stop: 08/23/24 10:12 Losartan Potassium (Losartan 25 Mg Tablet) 25 mg PO [facility] Stop: 08/21/25 21:59 Last Admin: 08/22/24 21:05 Dose: Not Given Metoprolol Succinate (Metoprolol Succinate 100 Mg Tab.Er.24h) 100 mg PO [facility] Stop: 08/21/25 21:59 Last Admin: 08/22/24 21:05 Dose: Not Given Morphine Sulfate (Morphine Sulfate 2 Mg/Ml Vial) 2 mg IV-PUSH Q4H PRN PRN Reason: Pain Scale 8 - 10 Pantoprazole Sodium (Pantoprazole 40 Mg Vial) 40 mg IV-PUSH DAILY [facility] Stop: 08/22/25 08:59 Last Admin: 08/23/24 08:55 Dose: 40 mg Prochlorperazine Edisylate (Prochlorperazine Edisylate 10 Mg/2 Ml Vial) 5 mg IV- PUSH Q4H PRN PRN Reason: Nausea And Vomiting Stop: 08/21/25 14:10 Sodium Chloride (Sodium Chloride 0.9 % 10 Ml Syringe) 0 ml IV-PUSH PRN PRN PRN Reason: Flush Stop: 08/21/25 11:20 Sodium Chloride (Sodium Chloride 0.9 % 10 Ml Vial.Pf) 10 ml INJECTION PRN PRN PRN Reason: Dilution Stop: 08/21/25 14:10 Last Admin: 08/23/24 08:55 Dose: 10 ml Sodium Chloride (Sodium Chloride 0.9 % 10 Ml Syringe) 10 ml IV-PUSH PRN PRN PRN Reason: Flush Stop: 08/21/25 14:10 Spironolactone (Spironolactone 25 Mg Tablet) 25 mg PO QAM [facility] Stop: 08/22/25 08:59 Last Admin: 08/23/24 09:10 Dose: 25 mg Exam Physical Exam Vital Signs: Temp Pulse Resp BP Pulse Ox O2 Del Method 97.6 F 85 14 108/73 94 L Room Air 08/23/24 07:13 08/23/24 07:13 08/23/24 07:13 08/23/24 07:13 08/23/24 07:13 08/23/24 07:29 Const General: cooperative and comfortable Orientation: alert, awake and oriented x3 Resp Effort & Inspection: normal respiratory effort Auscultation: clear to auscultation bilaterally Cardio Rate: regular rate Rhythm: regular rhythm Heart Sounds: S1 normal and S2 normal GI Inspection: non-distended Palpation: soft, no guarding and nontender Auscultation: normal bowel sounds Other: Left lower quadrant drain with some dark purulent fluid Neuro General: patient alert, patient awake and patient oriented x3 Extrem General: no clubbing, cyanosis or edema, no pedal edema and no calf tenderness Psych Appearance: grossly normal Mental Status: mental status grossly normal Mood: congruent mood Affect: normal affect Objective Pain Assessment Groin: Pain Description: Dull Pain Intensity: 3 Intake & Output 24 hour I&O: Intake & Output 08/22/24 08/23/24 08/23/24 23:59 07:59 15:59 Intake Total 350 / 760 500 / 500 Output Total Balance 350 / 760 475 / 475 Weight 68.3 kg Labs 08/23/24 06:19 08/23/24 06:19 Laboratory Results - Last 48 hrs. 08/23/24 06:19: Corrected WBC 11.0 H, Uncorrected WBC Count 11.0 H, RBC 4.30, Hgb 12.2 L, Hct 36.9 L, MCV 85.7, MCH 28.4, MCHC 33.2, RDW 13.7, Plt Count 283, MPV 8.4, Neut % (Auto) 63.9, Lymph % (Auto) 21.5, Moody % (Auto) 9.5, Eos % (Auto) 3.9, Baso % (Auto) 1.2, Nucleat RBC Rel Count 0.0, Neut # (Auto) 7.0, Lymph # (Auto) 2.4, Moody # (Auto) 1.1 H, Eos # (Auto) 0.4, Baso # (Auto) 0.1, PHA Creatinine Clear 83.07, Sodium 138, Potassium 4.0, Chloride 104, Carbon Dioxide 27.7, Anion Gap 10.3, BUN 13, Creatinine 0.63 L, Est GFR (CKD-EPI) > 60.0, Glucose 100, Calcium 8.6, Magnesium 1.7 L 08/22/24 06:48: Corrected WBC 11.5 H, Uncorrected WBC Count 11.5 H, RBC 4.55, Hgb 13.2, Hct 38.7 L,MCV 85.1, MCH 29.1, MCHC 34.1, RDW 13.8, Plt Count 275, MPV 8.7, Neut % (Auto) 67.8, Lymph % (Auto)19.9, Moody % (Auto) 9.4, Eos % (Auto) 2.3, Baso % (Auto) 0.6, Nucleat RBC Rel Count 0.1, Neut # (Auto) 7.8 H, Lymph # (Auto) 2.3, Moody # (Auto) 1.1 H, Eos # (Auto) 0.3, Baso # (Auto) 0.1, PT12.3, INR1.1, APTT 30.2, PHA Creatinine Clear 83.07, Sodium 136, Potassium 4.0,Chloride 100, Carbon Dioxide 29.2, Anion Gap 10.8, BUN 13, Creatinine 0.67 L, Est GFR (CKD-EPI) > 60.0, Glucose 100, Calcium 8.8, Total Bilirubin 0.4, AST 14,ALT 16, Alkaline Phosphatase 76, Total Protein 7.0, Albumin 3.7, Globulin 3.3, Albumin/Globulin Ratio 1.1 08/21/24 16:15: Urine Color Yellow, Urine Appearance Cloudy A, Urine pH 7.0, Ur Specific [place] 1.041 H, Urine Protein 20 H, Urine Glucose (UA) Normal, Urine Ketones Trace H, Urine Occult Blood Negative, Urine Nitrite Negative, Urine Bilirubin Negative, Urine Urobilinogen Normal, Ur Leukocyte Esterase Negative, Urine RBC 3-4, Urine WBC 3-4, Ur Squamous Epith Cells 1-2, Urine Bacteria None seen, Hyaline Casts None, Urine Mucus Rare 08/21/24 11:45: Corrected WBC 16.1 H, Uncorrected WBC Count 16.1 H, RBC 4.70, Hgb 13.7, Hct 40.4, MCV 85.8, MCH 29.0, MCHC 33.8, RDW 13.8, Plt Count 275, MPV 8.5, Neut % (Auto) 81.5, Lymph % (Auto) 10.6, Moody % (Auto) 6.8, Eos % (Auto) 0.6, Baso % (Auto) 0.5, Nucleat RBC Rel Count 0.0, Neut # (Auto) 13.1 H, Lymph #(Auto) 1.7, Moody # (Auto) 1.1 H, Eos # (Auto) 0.1, Baso # (Auto) 0.1, Monocyte DistWidth 19.38, PHA Creatinine Clear 83.07, Sodium 137, Potassium 3.7, Chloride 102, Carbon Dioxide 25.3, Anion Gap 13.4, BUN 19, Creatinine 0.78, Est GFR (CKD- EPI) > 60.0, Glucose 166 H, Calcium 9.5, Total Bilirubin 0.4, Direct Bilirubin 0.10, Indirect Bilirubin 0.3, AST 16, ALT 19, Alkaline Phosphatase 87,Total Protein 7.6, Albumin 4.0, Globulin 3.6, Albumin/Globulin Ratio 1.1, [id number] A&P - General Surgery Assessment/Plan (1) Diverticulitis large intestine: Qualifiers: Diverticulitis bleeding: without bleeding Diverticulitis complication: with abscess Qualified Code(s): K57.20 - Diverticulitis of large intestine withperforation and abscess without bleeding Plan Cultures from abscess pending. WBC count decreasing. Follow drain output. Continue antibiotics. Continue low fiber diet. Documented By: Ines [facility] MD 08/23/24 0949 Signed By: 08/23/241951 [facility]06-03-2025 Progress note Author Enoc Zepeda [facility] Note Date/Time August 23, 2024 11:36 am [facility] [address] [place] [address] Hospitalist Progress Note Signed Patient: Domo Piña MR#: [id number] : 1960 Acct:[id number] Age/Sex: 64 / M Adm Date: 5 Loc: 3T Room: [address] [place] [address] Type: ADM IN Attending Dr: Enoc Zepeda DO Copies to: ~ Date of Service: 08/23/2024 Subjective Subjective Narrative: Morning, he is currently sitting up in bed. He has very minimal pain, his present bedside. He is having very minimal pain from the drain site, says the procedure went well yesterday. He did ask if it was possible he will be discharged with his drain, all questions were answered to best my ability and I did defer some question to general surgery. Exam Physical Exam Vital Signs: Temp Pulse Resp BP Pulse Ox O2 Del Method 97.6 F 85 14 108/73 94 L Room Air 08/23/24 07:13 08/23/24 07:13 08/23/24 07:13 08/23/24 07:13 08/23/24 07:13 08/23/24 08:00 Narrative: General: Awake alert, no acute distress HEENT: head atraumatic, normocephalic, moist mucous membranes Neck: supple no masses, no lymphadenopathy CVS: regular rate and rhythm, no murmurs or gallops Respiratory: clear to auscultation bilaterally, no wheezing or crackles, symmetric expansion GI: soft, nondistended, nontender, positive bowel sounds with no organomegaly, CHASE drain present in left lower quadrant. Site has no surrounding erythema. Extremity: moves all extremities, no restrictions of movements, no calf tenderness, no edema Neuro: AOx3, CN II-VII intact. Moves all extremities in all planes of motion. Skin: dry, intact no rashes or lesions Objective Lab Results 08/23/24 06:19 08/23/24 06:19 Microbiology Results Microbiology 08/22/24 14:30 Other (See Comment) Aerobic Culture - Preliminary No Growth 1 Day 08/22/24 14:30 Other (See Comment) Anaerobic Culture - Preliminary Meds Allergies and Active Meds Allergies No Known Allergies Allergy (Verified 08/21/24 11:22) Active Meds: Active Medications Generic Name Dose Route Start Last Admin Trade Name Freq PRN Reason Stop Dose Admin Acetaminophen 650 mg 08/21/24 14:11 08/23/24 00:38 Acetaminophen 325 Mg Tablet PO 08/21/25 14:10 650 mg Q6HR PRN Administration Pain Scale 1 - 3 or fever Aspirin 81 mg 08/21/24 22:00 08/22/24 21:05 Aspirin 81 Mg Tablet. PO 08/21/25 21:59 Not Given HS [facility] Atorvastatin Calcium 80 mg 08/21/24 21:00 08/22/24 20:15 Atorvastatin 80 Mg Tablet PO 08/21/25 20:59 80 mg QPM [facility] Administration Heparin Sodium (Porcine) 5,000 unit 08/21/24 21:00 08/23/24 09:09 Heparin 5,000 Unit/Ml Vial SUBCUT 08/21/25 20:59 5,000 unit Q12HR [facility] Administration Ceftriaxone Sodium 2 gm in 50 mls @ 100 mls/hr 08/22/24 08:45 08/23/24 09:08 Rocephin IV 100 mls/hr Q24H [facility] Administration Metronidazole 500 mg in 100 mls @ 100 mls/hr 08/22/24 09:15 08/23/24 10:04 Flagyl IV 100 mls/hr Q8H [facility] Administration Losartan Potassium 25 mg 08/21/24 22:00 08/22/24 21:05 Losartan 25 Mg Tablet PO 08/21/25 21:59 Not Given HS [facility] Metoprolol Succinate 100 mg 08/21/24 22:00 08/22/24 21:05 Metoprolol Succinate 100 Mg Tab.Er.24h PO 08/21/25 21:59 Not Given HS [facility] Morphine Sulfate 2 mg 08/21/24 14:11 Morphine Sulfate 2 Mg/Ml Vial IV-PUSH Q4H PRN Pain Scale 8 - 10 Pantoprazole Sodium 40 mg 08/22/24 09:00 08/23/24 08:55 Pantoprazole 40 Mg Vial IV-PUSH 08/22/25 08:59 40 mg DAILY [facility] Administration Prochlorperazine Edisylate 5 mg 08/21/24 14:11 Prochlorperazine Edisylate 10 Mg/2 Ml Vial IV-PUSH 08/21/25 14:10 Q4H PRN Nausea And Vomiting Sodium Chloride 0 ml 08/21/24 11:21 Sodium Chloride 0.9 % 10 Ml Syringe IV-PUSH 08/21/25 11:20 PRN PRN Flush Sodium Chloride 10 ml 08/21/24 14:11 08/23/24 08:55 Sodium Chloride 0.9 % 10 Ml Vial.Pf INJECTION 08/21/25 14:10 10 ml PRN PRN Administration Dilution Sodium Chloride 10 ml 08/21/24 14:11 Sodium Chloride 0.9 % 10 Ml Syringe IV-PUSH 08/21/25 14:10 PRN PRN Flush Spironolactone 25 mg 08/22/24 09:00 08/23/24 09:10 Spironolactone 25 Mg Tablet PO 08/22/25 08:59 25 mg QAM [facility] Administration A&P - Hospitalist Assessment/Plan (1) Acute diverticulitis: (2) Colonic diverticular abscess: Plan - Afebrile here, has leukocytosis - CT abdomen pelvis showed sigmoid diverticulitis with 2 cm abscess lateral to the inflamed bowel which extends into the lateral wall to inguinal canal. - Continue diet as ordered - Continue ceftriaxone/Flagyl ? Culture from CHASE drain is pending - Supportive care with antiemetics, pain control as needed as directed ? General Surgery consult Home medications verified and resumed as appropriate Diet: Soft GI diet DVT ppx: heparin Code status: Full Status: inpatient Documented By: Enoc Zepeda DO 08/23/24 1134 Signed By: <Electronically signed by Enoc Zepeda DO> 08/23/24 1136 [facility] Work Phone: 1(247) 379-832106-03-2025 [place] [address] Hospitalist Progress Note Signed Patient: Domo Piña MR#: [id number] : 1960 Acct:[id number] Age/Sex: 64 / M Adm Date: 5 Loc: Room: [address] [place] [address] Type: ADM IN Attending Dr: Enoc Zepeda DO Copies to: ~ Date of Service: 08/23/2024 Subjective Subjective Narrative: Morning, he is currently sitting up in bed. He has very minimal pain, his present bedside. He is having very minimal pain from the drain site, says the procedure went well yesterday. He did ask if it was possible he will be discharged with his drain, all questions were answered to best my ability and I did defer some question to general surgery. Exam Physical Exam Vital Signs: Temp Pulse Resp BP Pulse Ox O2 Del Method 97.6 F 85 14 108/73 94 L Room Air 08/23/24 07:13 08/23/24 07:13 08/23/24 07:13 08/23/24 07:13 08/23/24 07:13 08/23/24 08:00 Narrative: General: Awake alert, no acute distress HEENT: head atraumatic, normocephalic, moist mucous membranes Neck: supple no masses, no lymphadenopathy CVS: regular rate and rhythm, no murmurs or gallops Respiratory: clear to auscultation bilaterally, no wheezing or crackles, symmetric expansion GI: soft, nondistended, nontender, positive bowel sounds with no organomegaly, CHASE drain present in left lower quadrant. Site has no surrounding erythema. Extremity: moves all extremities, no restrictions of movements, no calf tenderness, no edema Neuro: AOx3, CN II-VII intact. Moves all extremities in all planes of motion. Skin: dry, intact no rashes or lesions Objective Lab Results 08/23/24 06:19 08/23/24 06:19 Microbiology Results Microbiology 08/22/24 14:30 Other (See Comment) Aerobic Culture - Preliminary No Growth 1 Day 08/22/24 14:30 Other (See Comment) Anaerobic Culture - Preliminary Meds Allergies and Active Meds Allergies No Known Allergies Allergy (Verified 08/21/24 11:22) Active Meds: Active Medications Generic Name Dose Route Start Last Admin Trade Name Freq PRN Reason Stop Dose Admin Acetaminophen 650 mg 08/21/24 14:11 08/23/24 00:38 Acetaminophen 325 Mg Tablet PO 08/21/25 14:10 650 mg Q6HR PRN Administration Pain Scale 1 - 3 or fever Aspirin 81 mg 08/21/24 22:00 08/22/24 21:05 Aspirin 81 Mg Tablet. PO 08/21/25 21:59 Not Given HS [facility] Atorvastatin Calcium 80 mg 08/21/24 21:00 08/22/24 20:15 Atorvastatin 80 Mg Tablet PO 08/21/25 20:59 80 mg QPM [facility] Administration Heparin Sodium (Porcine) 5,000 unit 08/21/24 21:00 08/23/24 09:09 Heparin 5,000 Unit/Ml Vial SUBCUT 08/21/25 20:59 5,000 unit Q12HR [facility] Administration Ceftriaxone Sodium 2 gm in 50 mls @ 100 mls/hr 08/22/24 08:45 08/23/24 09:08 Rocephin IV 100 mls/hr Q24H [facility] Administration Metronidazole 500 mg in 100 mls @ 100 mls/hr 08/22/24 09:15 08/23/24 10:04 Flagyl IV 100 mls/hr Q8H [facility] Administration Losartan Potassium 25 mg 08/21/24 22:00 08/22/24 21:05 Losartan 25 Mg Tablet PO 08/21/25 21:59 Not Given HS [facility] Metoprolol Succinate 100 mg 08/21/24 22:00 08/22/24 21:05 Metoprolol Succinate 100 Mg Tab.Er.24h PO 08/21/25 21:59 Not Given HS [facility] Morphine Sulfate 2 mg 08/21/24 14:11 Morphine Sulfate 2 Mg/Ml Vial IV-PUSH Q4H PRN Pain Scale 8 - 10 Pantoprazole Sodium 40 mg 08/22/24 09:00 08/23/24 08:55 Pantoprazole 40 Mg Vial IV-PUSH 08/22/25 08:59 40 mg DAILY [facility] Administration Prochlorperazine Edisylate 5 mg 08/21/24 14:11 Prochlorperazine Edisylate 10 Mg/2 Ml Vial IV-PUSH 08/21/25 14:10 Q4H PRN Nausea And Vomiting Sodium Chloride 0 ml 08/21/24 11:21 Sodium Chloride 0.9 % 10 Ml Syringe IV-PUSH 08/21/25 11:20 PRN PRN Flush Sodium Chloride 10 ml 08/21/24 14:11 08/23/24 08:55 Sodium Chloride 0.9 % 10 Ml Vial.Pf INJECTION 08/21/25 14:10 10 ml PRN PRN Administration Dilution Sodium Chloride 10 ml 08/21/24 14:11 Sodium Chloride 0.9 % 10 Ml Syringe IV-PUSH 08/21/25 14:10 PRN PRN Flush Spironolactone 25 mg 08/22/24 09:00 08/23/24 09:10 Spironolactone 25 Mg Tablet PO 08/22/25 08:59 25 mg QAM [facility] Administration A&P - Hospitalist Assessment/Plan (1) Acute diverticulitis: (2) Colonic diverticular abscess: Plan - Afebrile here, has leukocytosis - CT abdomen pelvis showed sigmoid diverticulitis with 2 cm abscess lateral to the inflamed bowel which extends into the lateral wall to inguinal canal. - Continue diet as ordered - Continue ceftriaxone/Flagyl ? Culture from [facility] drain is pending - Supportive care with antiemetics, pain control as needed as directed ? General Surgery consult Home medications verified and resumed as appropriate Diet: Soft GI diet DVT ppx: heparin Code status: Full Status: inpatient Documented By: Enoc Zepeda DO 08/23/24 1134 Signed By: 08/23/24 1136 [facility]06-02-2025 Radiology Diagnostic study note [facility] Main [place] [address] [place] [address] CT Scan Report Signed Patient: Domo Piña MR#: [id number] : 1960 Acct:[id number] Age/Sex: 64 / M ADM Date: 5 Loc: Room: [address] [place] [address] Type: ADM IN Attending Dr: Enoc Zepeda DO Copies to: MD Enoc Love DO~ Ordering Provider: Ines [facility] MD; Enoc Zepeda DO Date of Service: 08/22/24 CT/CT guided drainage: Diverticular abscess ([id number]) CT/CT guided catheter placement: , CT guided needle placement 08/22/2024 2:01 PM SIGNS AND SYMPTOMS: Abscess and left groin, drain placement INFORMED CONSENT: Reason for procedure was discussed with the patient. The procedure expectations risks benefits options and alternatives were discussed. All the questions were answered. The patient understood the results cannot be guaranteed. The procedureis indicated and risks were acceptable. Consent was [...] catheter was deployed with the inner stiffener andneedle removed. The pigtail catheter was aspirated yielding approximately 25 mL of bloody purulent material and gas. The pigtail catheter was connected to a three-way stopcock and a Magdi-Artis drain. The catheter was fixed to the skin surface using a stay fix. The patient tolerated the procedurewell. No immediate complications were detected. CT/CT guided catheter placement IMPRESSION: Successful CT-guided pigtail catheter drain placement within a left inguinal abscess. Impression dictated by: Alex Leyva M.D. 08/22/2024 3:10 PM Dictation Location: [place] [address] Transcribed By: MAGALY 08/22/24 1510 Dictated By: Alex Leyva II, MD 08/22/24 1508 Signed By: 08/22/24 1510 [facility] Work Phone: 1(975) 172-880106-02-2025 Progress note Author Enoc Zepeda [facility] Note Date/Time August 22, 2024 10:18 am [facility] [address] [place] [address] Hospitalist Progress Note Signed Patient: Domo Piña MR#: [id number] : 1960 Acct:[id number] Age/Sex: 64 / M Adm Date: 5 Loc: Room: [address] [place] [address] Type: ADM IN Attending Dr: Enoc Zepeda DO Copies to: ~ Date of Service: 08/22/2024 Subjective Subjective Narrative: Seen and evaluated this morning, he is currently lying in bed with head of bed elevated roughly 4 5 degrees, he does finish eating breakfast. His and daughter present at bedside. He currently denies having any further abdominal pain, he has not had a bowel movement yet though he has passed some gas. Did explain to the family the process of diverticulosis to the family, they are appreciative of the discussion. All questions were answered. Exam Physical Exam Vital Signs: Temp Pulse Resp BP Pulse Ox O2 Del Method 97.8 F 90 16 115/77 95 Room Air 08/22/24 09:05 08/22/24 09:05 08/22/24 09:05 08/22/24 09:05 08/22/24 09:05 08/22/24 09:05 Narrative: General: Awake alert, no acute distress HEENT: head atraumatic, normocephalic, moist mucous membranes Neck: supple no masses, no lymphadenopathy CVS: regular rate and rhythm, no murmurs or gallops Respiratory: clear to auscultation bilaterally, no wheezing or crackles, symmetric expansion GI: soft, nondistended, nontender, positive bowel sounds with no organomegaly Extremity: moves all extremities, no restrictions of movements, no calf tenderness, no edema Neuro: AOx3, CN II-VII intact. Moves all extremities in all planes of motion. Skin: dry, intact no rashes or lesions Objective Lab Results 08/22/24 06:48 08/22/24 06:48 Meds Allergies and Active Meds Allergies No Known Allergies Allergy (Verified 08/21/24 11:22) Active Meds: Active Medications Generic Name Dose Route Start Last Admin Trade Name Freq PRN Reason Stop Dose Admin Acetaminophen 650 mg 08/21/24 14:11 Acetaminophen 325 Mg Tablet PO 08/21/25 14:10 Q6HR PRN Pain Scale 1 - 3 or fever Aspirin 81 mg 08/21/24 22:00 08/21/24 21:49 Aspirin 81 Mg Tablet. PO 08/21/25 21:59 81 mg HS [facility] Administration Atorvastatin Calcium 80 mg 08/21/24 21:00 08/21/24 21:16 Atorvastatin 80 Mg Tablet PO 08/21/25 20:59 80 mg QPM [facility] Administration Heparin Sodium (Porcine) 5,000 unit 08/21/24 21:00 08/22/24 09:07 Heparin 5,000 Unit/Ml Vial SUBCUT 08/21/25 20:59 5,000 unit Q12HR [facility] Administration Ceftriaxone Sodium 2 gm in 50 mls @ 100 mls/hr 08/22/24 08:45 Rocephin IV Q24H [facility] Metronidazole 500 mg in 100 mls @ 100 mls/hr 08/22/24 09:15 08/22/24 09:07 Flagyl IV 100 mls/hr Q8H [facility] Administration Losartan Potassium 25 mg 08/21/24 22:00 08/21/24 21:49 Losartan 25 Mg Tablet PO 08/21/25 21:59 25 mg HS [facility] Administration Metoprolol Succinate 100 mg 08/21/24 22:00 08/21/24 21:49 Metoprolol Succinate 100 Mg Tab.Er.24h PO 08/21/25 21:59 100 mg HS [facility] Administration Morphine Sulfate 2 mg 08/21/24 14:11 Morphine Sulfate 2 Mg/Ml Vial IV-PUSH Q4H PRN Pain Scale 8 - 10 Pantoprazole Sodium 40 mg 08/22/24 09:00 08/22/24 09:07 Pantoprazole 40 Mg Vial IV-PUSH 08/22/25 08:59 40 mg DAILY [facility] Administration Prochlorperazine Edisylate 5 mg 08/21/24 14:11 Prochlorperazine Edisylate 10 Mg/2 Ml Vial IV-PUSH 08/21/25 14:10 Q4H PRN Nausea And Vomiting Sodium Chloride 0 ml 08/21/24 11:21 Sodium Chloride 0.9 % 10 Ml Syringe IV-PUSH 08/21/25 11:20 PRN PRN Flush Sodium Chloride 10 ml 08/21/24 14:11 08/22/24 09:07 Sodium Chloride 0.9 % 10 Ml Vial.Pf INJECTION 08/21/25 14:10 10 ml PRN PRN Administration Dilution Sodium Chloride 10 ml 08/21/24 14:11 Sodium Chloride 0.9 % 10 Ml Syringe IV-PUSH 08/21/25 14:10 PRN PRN Flush Spironolactone 25 mg 08/22/24 09:00 08/22/24 09:07 Spironolactone 25 Mg Tablet PO 08/22/25 08:59 25 mg QAM [facility] Administration A&P - Hospitalist Assessment/Plan (1) Acute diverticulitis: (2) Colonic diverticular abscess: Plan - Afebrile here, has leukocytosis - CT abdomen pelvis showed sigmoid diverticulitis with 2 cm abscess lateral to the inflamed bowel which extends into the lateral wall to inguinal canal. - He is eating and drinking, tolerating well. Discussed IV fluids. - De-escalate Zosyn to ceftriaxone/Flagyl - Supportive care with antiemetics, pain control as needed as directed ?General Surgery consult - Scheduled for CT-guided drain per IR today. Home medications verified and resumed as appropriate Diet: Soft GI diet DVT ppx: heparin Code status: Full Status: inpatient Documented By: Enoc Zepeda DO 08/22/24 1016 Signed By: <Electronically signed by Enoc Zepeda, > 08/22/24 1018 [facility] Work Phone: [phone] Progress note Author Ines Wayne [facility] Note Date/Time August 22, 2024 9:06a m [facility] [address] [place] [address] General Surgery Progress Note Signed Patient: Domo Piña MR#: [id number] : 1960 Acct:[id number] Age/Sex: 64 / M Adm Date: 5 Loc: Room: [address] [place] [address] Type: ADM IN Attending Dr: Enoc Zepeda DO Copies to: ~ Date of Service: 08/22/2024 Subjective Subjective HPI: Patient denies any symptoms overnight. Has been eating. Passing flatus. Previous history: The patient is a 64-year-old male who presents with about a 3- day history of swelling in the left lower abdominal wall. This has been a little tender. Patient has been eating. He denies vomiting. Denies fevers. He denies change in bowel habits. Patient presented to the emergency room. CT scan showed:IMPRESSION: Acute diverticulitis at the junction of the descending and sigmoid colon. Suspected up to 2 cm abscess lateral to the inflamed of bowel which extends into the lateral wall the lateral to the inguinal canal. Nodirect inguinal hernia. White blood cell count 16,000. Currently, patient denies abdominal pain. He has been eating. He denies history of similar symptoms. Patient had a colonoscopy in [place] about 2 yearsago. He states this showed diverticulosis. Only abdominal surgery was a right inguinal hernia repair about 60 years ago. Patient has a history of coronary disease and cardiomyopathy. He had a previouscardiac catheterization which showed some blockages but not felt to require stent or bypass. 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 Allergies & Medications Medications and Allergies Allergies No Known Allergies Allergy (Verified 08/21/24 11:22) Home Medications aspirin 81 mg tablet,delayed release 81 mg PO DAILY 04/10/24 [History Confirmed 08/21/24] atorvastatin 80 mg tablet 80 mg PO QPM 04/10/24 [History Confirmed 08/21/24] losartan 25 mg tablet 25 mg PO HS 04/10/24 [History Confirmed 08/21/24] metoprolol succinate 100 mg tablet,extended release 24 hr 100 mg PO 04/10/24 [History Confirmed 08/21/24] spironolactone 25 mg tablet 25 mg PO QA 04/10/24 [History Confirmed 08/21/24] Active Medications Acetaminophen (Acetaminophen 325 Mg Tablet) 650 mg PO Q6HR PRN PRN Reason: Pain Scale 1 - 3 or fever Stop: 08/21/25 14:10 Aspirin (Aspirin 81 Mg Tablet.Dr) 81 mg PO [facility] Stop: 08/21/25 21:59 Last Admin: 08/21/24 21:49 Dose: 81 mg Atorvastatin Calcium (Atorvastatin 80 Mg Tablet) 80 mg PO QPM [facility] Stop: 08/21/25 20:59 Last Admin: 08/21/24 21:16 Dose: 80 mg Heparin Sodium (Porcine) (Heparin 5,000 Unit/Ml Vial) 5,000 unit SUBCUT Q12HR [facility] Stop: 08/21/25 20:59 Last Admin: 08/21/24 21:16 Dose: 5,000 unit Ceftriaxone Sodium (Rocephin) 2 gm in 50 mls @ 100 mls/hr IV Q24H [facility] Metronidazole (Flagyl) 500 mg in 100 mls @ 100 mls/hr IV Q8H [facility] Losartan Potassium (Losartan 25 Mg Tablet) 25 mg PO [facility] Stop: 08/21/25 21:59 Last Admin: 08/21/24 21:49 Dose: 25 mg Metoprolol Succinate (Metoprolol Succinate 100 Mg Tab.Er.24h) 100 mg PO [facility] Stop: 08/21/25 21:59 Last Admin: 08/21/24 21:49 Dose: 100 mg Morphine Sulfate (Morphine Sulfate 2 Mg/Ml Vial) 2 mg IV-PUSH Q4H PRN PRN Reason: Pain Scale 8 - 10 Pantoprazole Sodium (Pantoprazole 40 Mg Vial) 40 mg IV-PUSH DAILY [facility] Stop: 08/22/25 08:59 Prochlorperazine Edisylate (Prochlorperazine Edisylate 10 Mg/2 Ml Vial) 5 mg IV- PUSH Q4H PRN PRN Reason: Nausea And Vomiting Stop: 08/21/25 14:10 Sodium Chloride (Sodium Chloride 0.9 % 10 Ml Syringe) 0 ml IV-PUSH PRN PRN PRN Reason: Flush Stop: 08/21/25 11:20 Sodium Chloride (Sodium Chloride 0.9 % 10 Ml Vial.Pf) 10 ml INJECTION PRN PRN PRN Reason: Dilution Stop: 08/21/25 14:10 Sodium Chloride (Sodium Chloride 0.9 % 10 Ml Syringe) 10 ml IV-PUSH PRN PRN PRN Reason: Flush Stop: 08/21/25 14:10 Spironolactone (Spironolactone 25 Mg Tablet) 25 mg PO QAM [facility] Stop: 08/22/25 08:59 Exam Physical Exam Vital Signs: Temp Pulse Resp BP Pulse Ox O2 Del Method 97.9 F 75 16 107/76 94 L Room Air 08/22/24 03:11 08/22/24 03:11 08/22/24 03:11 08/22/24 03:11 08/22/24 03:11 08/22/24 03:11 Const General: cooperative and no acute distress GI Palpation: soft, no guarding, mass (In the left lower abdominal wall, there is approximately 3 cm firm mass. ) and tender (Over mass) in the LLQ Neuro General: patient alert and patient awake Objective Intake & Output 24 hour I&O: Intake & Output 08/21/24 08/22/24 08/22/24 23:59 07:59 15:59 Intake Total 350 / 450 260 / 260 Balance 350 / 450 260 / 260 Weight 68.4 kg Labs 08/22/24 06:48 08/22/24 06:48 Laboratory Results - Last 48 hrs. 08/22/24 06:48: Corrected WBC 11.5 H, Uncorrected WBC Count 11.5 H, RBC 4.55, Hgb 13.2, Hct 38.7 L, MCV 85.1, MCH 29.1, MCHC 34.1, RDW 13.8, Plt Count 275, MPV 8.7, Neut % (Auto) 67.8, Lymph % (Auto) 19.9, Moody % (Auto) 9.4, Eos % (Auto) 2.3, Baso % (Auto) 0.6, Nucleat RBC Rel Count 0.1, Neut # (Auto) 7.8 H, Lymph # (Auto) 2.3, Moody # (Auto) 1.1 H, Eos # (Auto) 0.3, Baso # (Auto) 0.1, PT12.3, INR 1.1, APTT 30.2, PHA Creatinine Clear 83.07, Sodium 136, Potassium 4.0,Chloride 100, Carbon Dioxide 29.2, Anion Gap 10.8, BUN 13, Creatinine 0.67 L, Est GFR (CKD-EPI) > 60.0, Glucose 100, Calcium 8.8, Total Bilirubin 0.4, AST 14,ALT 16, Alkaline Phosphatase 76, Total Protein 7.0, Albumin 3.7, Globulin 3.3, Albumin/Globulin Ratio 1.1 08/21/24 16:15: Urine Color Yellow, Urine Appearance Cloudy A, Urine pH 7.0, Ur Specific [place] 1.041 H, Urine Protein 20 H, Urine Glucose (UA) Normal, Urine Ketones Trace H, Urine Occult Blood Negative, Urine Nitrite Negative, Urine Bilirubin Negative, Urine Urobilinogen Normal, Ur Leukocyte Esterase Negative, Urine RBC 3-4, Urine WBC 3-4, Ur Squamous Epith Cells 1-2, Urine Bacteria None seen, Hyaline Casts None, Urine Mucus Rare 08/21/24 11:45: Corrected WBC 16.1 H, Uncorrected WBC Count 16.1 H, RBC 4.70, Hgb 13.7, Hct 40.4, MCV 85.8, MCH 29.0, MCHC 33.8, RDW 13.8, Plt Count 275, MPV 8.5, Neut % (Auto) 81.5, Lymph % (Auto) 10.6, Moody % (Auto) 6.8, Eos % (Auto) 0.6, Baso % (Auto) 0.5, Nucleat RBC Rel Count 0.0, Neut # (Auto) 13.1 H, Lymph #(Auto) 1.7, Moody # (Auto) 1.1 H, Eos # (Auto) 0.1, Baso # (Auto) 0.1, Monocyte Dist Width 19.38, PHA Creatinine Clear 83.07, Sodium 137, Potassium 3.7, Chloride 102, Carbon Dioxide 25.3, Anion Gap 13.4, BUN 19, Creatinine 0.78, Est GFR (CKD-EPI) > 60.0, Glucose 166 H, Calcium 9.5, Total Bilirubin 0.4, Direct Bilirubin 0.10, Indirect Bilirubin 0.3, AST 16, ALT 19, Alkaline Phosphatase 87,Total Protein 7.6, Albumin 4.0, Globulin 3.6, Albumin/Globulin Ratio 1.1, [id number] A&P - General Surgery Assessment/Plan (1) Diverticulitis large intestine: Qualifiers: Diverticulitis bleeding: without bleeding Diverticulitis complication: with abscess Qualified Code(s): K57.20 - Diverticulitis of large intestine withperforation and abscess without bleeding Plan I did speak with radiology today. We will arrange for CT-guided drainage of theperidiverticular abscess. Continue IV antibiotics. White blood cell count decreased to 11,000. Documented By: Ines Wayne MD 08/22/24 0904 Signed By: <Electronically signed by MD Ines Wayne> 08/22/24 0906 [facility] Work Phone: [phone] 366-934706-02-2025 [place] [address] Hospitalist Progress Note Signed Patient: Domo Piña MR#: [id number] : 1960 Acct:[id number] Age/Sex: 64 / M Adm Date: 5 Loc: Room: [address] [place] [address] Type: ADM IN Attending Dr: Enoc Zepeda DO Copies to: ~ Date of Service: 08/22/2024 Subjective Subjective Narrative: Seen and evaluated this morning, he is currently lying in bed with head of bed elevated roughly 4 5degrees, he does finish eating breakfast. His and daughter present at bedside. He currently denies having any further abdominal pain, he has not had a bowel movement yet though he has passed some gas. Did explain to the family the process of diverticulosis to the family, they are appreciative of the discussion. All questions were answered. Exam Physical Exam Vital Signs: Temp Pulse Resp BP Pulse Ox O2 Del Method 97.8 F 90 16 115/77 95 Room Air 08/22/24 09:05 08/22/24 09:05 08/22/24 09:05 08/22/24 09:05 08/22/24 09:05 08/22/24 09:05 Narrative: General: Awake alert, no acute distress HEENT: head atraumatic, normocephalic, moist mucous membranes Neck: supple no masses, no lymphadenopathy CVS: regular rate and rhythm, no murmurs or gallops Respiratory: clear to auscultation bilaterally, no wheezing or crackles, symmetric expansion GI: soft, nondistended, nontender, positive bowel sounds with no organomegaly Extremity: moves all extremities, no restrictions of movements, no calf tenderness, no edema Neuro: AOx3, CN II-VII intact. Moves all extremities in all planes of motion. Skin: dry, intact no rashes or lesions Objective Lab Results 08/22/24 06:48 08/22/24 06:48 Meds Allergies and Active Meds Allergies No Known Allergies Allergy (Verified 08/21/24 11:22) Active Meds: Active Medications Generic Name Dose Route Start Last Admin Trade Name Freq PRN Reason Stop Dose Admin Acetaminophen 650 mg 08/21/24 14:11 Acetaminophen 325 Mg Tablet PO 08/21/25 14:10 Q6HR PRN Pain Scale 1 - 3 or fever Aspirin 81 mg 08/21/24 22:00 08/21/24 21:49 Aspirin 81 Mg Tablet. PO 08/21/25 21:59 81 mg HS [facility] Administration Atorvastatin Calcium 80 mg 08/21/24 21:00 08/21/24 21:16 Atorvastatin 80 Mg Tablet PO 08/21/25 20:59 80 mg QPM [facility] Administration Heparin Sodium (Porcine) 5,000 unit 08/21/24 21:00 08/22/24 09:07 Heparin 5,000 Unit/Ml Vial SUBCUT 08/21/25 20:59 5,000 unit Q12HR [facility] Administration Ceftriaxone Sodium 2 gm in 50 mls @ 100 mls/hr 08/22/24 08:45 Rocephin IV Q24H [facility] Metronidazole 500 mg in 100 mls @ 100 mls/hr 08/22/24 09:15 08/22/24 09:07 Flagyl IV 100 mls/hr Q8H [facility] Administration Losartan Potassium 25 mg 08/21/24 22:00 08/21/24 21:49 Losartan 25 Mg Tablet PO 08/21/25 21:59 25 mg HS [facility] Administration Metoprolol Succinate 100 mg 08/21/24 22:00 08/21/24 21:49 Metoprolol Succinate 100 Mg Tab.Er.24h PO 08/21/25 21:59 100 mg HS [facility] Administration Morphine Sulfate 2 mg 08/21/24 14:11 Morphine Sulfate 2 Mg/Ml Vial IV-PUSH Q4H PRN Pain Scale 8 - 10 Pantoprazole Sodium 40 mg 08/22/24 09:00 08/22/24 09:07 Pantoprazole 40 Mg Vial IV-PUSH 08/22/25 08:59 40 mg DAILY [facility] Administration Prochlorperazine Edisylate 5 mg 08/21/24 14:11 Prochlorperazine Edisylate 10 Mg/2 Ml Vial IV-PUSH 08/21/25 14:10 Q4H PRN Nausea And Vomiting Sodium Chloride 0 ml 08/21/24 11:21 Sodium Chloride 0.9 % 10 Ml Syringe IV-PUSH 08/21/25 11:20 PRN PRN Flush Sodium Chloride 10 ml 08/21/24 14:11 08/22/24 09:07 Sodium Chloride 0.9 % 10 Ml Vial.Pf INJECTION 08/21/25 14:10 10 ml PRN PRN Administration Dilution Sodium Chloride 10 ml 08/21/24 14:11 Sodium Chloride 0.9 % 10 Ml Syringe IV-PUSH 08/21/25 14:10 PRN PRN Flush Spironolactone 25 mg 08/22/24 09:00 08/22/24 09:07 Spironolactone 25 Mg Tablet PO 08/22/25 08:59 25 mg QAM [facility] Administration A&P - Hospitalist Assessment/Plan (1) Acute diverticulitis: (2) Colonic diverticular abscess: Plan - Afebrile here, has leukocytosis - CT abdomen pelvis showed sigmoid diverticulitis with 2 cm abscess lateral to the inflamed bowel which extends into the lateral wall to inguinal canal. - He is eating and drinking, tolerating well. Discussed IV fluids. - De-escalate Zosyn to ceftriaxone/Flagyl - Supportive care with antiemetics, pain control as needed as directed ?General Surgery consult - Scheduled for CT-guided drain per IR today. Home medications verified and resumed as appropriate Diet: Soft GI diet DVT ppx: heparin Code status: Full Status: inpatient Documented By: Enoc Zepeda DO 08/22/24 1016 Signed By: 08/22/24 [facility]06-02-2025 [place] [address] General Surgery Progress Note Signed Patient: Domo Piña MR#: [id number] : 1960 Acct:[id number] Age/Sex: 64 / M Adm Date: 5 Loc: Room: 3E1962-3 Type: ADM IN Attending Dr: Enoc Zepeda DO Copies to: ~ Date of Service: 08/22/2024 Subjective Subjective HPI: Patient denies any symptoms overnight. Has been eating. Passing flatus. Previous history: The patient is a 64-year-old male who presents with about a 3- day history of swelling in the left lower abdominal wall. This has been a little tender. Patient has been eating. He denies vomiting. Denies fevers. He denies change in bowel habits. Patient presented to the emergency room. CT scan showed:IMPRESSION: Acute diverticulitis at the junction of the descending and sigmoid colon. Suspected up to 2 cm abscess lateral to the inflamed of bowel which extends into the lateral wall the lateral to the inguinal canal. Nodirect inguinal hernia. White blood cell count 16,000. Currently, patient denies abdominal pain. He has been eating. He denies history of similar symptoms. Patient had a colonoscopy in [place] about 2 yearsago. He states this showed diverticulosis. Only abdominal surgery was a right inguinal hernia repair about 60 years ago. Patient has a history of coronary disease and cardiomyopathy. He had a previouscardiac catheterization which showed some blockages but not felt to require stent or bypass. 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 Allergies & Medications Medications and Allergies Allergies No Known Allergies Allergy (Verified 08/21/24 11:22) Home Medications aspirin 81 mg tablet,delayed release 81 mg PO DAILY 04/10/24 [History Confirmed 08/21/24] atorvastatin 80 mg tablet 80 mg PO QPM 04/10/24 [History Confirmed 08/21/24] losartan 25 mg tablet 25 mg PO HS 04/10/24 [History Confirmed 08/21/24] metoprolol succinate 100 mg tablet,extended release 24 hr 100 mg PO HS 04/10/24 [History Confirmed 08/21/24] spironolactone 25 mg tablet 25 mg PO QAM 04/10/24 [History Confirmed 08/21/24] Active Medications Acetaminophen (Acetaminophen 325 Mg Tablet) 650 mg PO Q6HR PRN PRN Reason: Pain Scale 1 - 3 or fever Stop: 08/21/25 14:10 Aspirin (Aspirin 81 Mg Tablet.Dr) 81 mg PO HS [facility] Stop: 08/21/25 21:59 Last Admin: 08/21/24 21:49 Dose: 81 mg Atorvastatin Calcium (Atorvastatin 80 Mg Tablet) 80 mg PO QPM [facility] Stop: 08/21/25 20:59 Last Admin: 08/21/24 21:16 Dose: 80 mg Heparin Sodium (Porcine) (Heparin 5,000 Unit/Ml Vial) 5,000 unit SUBCUT Q12HR [facility] Stop: 08/21/25 20:59 Last Admin: 08/21/24 21:16 Dose: 5,000 unit Ceftriaxone Sodium (Rocephin) 2 gm in 50 mls @ 100 mls/hr IV Q24H [facility] Metronidazole (Flagyl) 500 mg in 100 mls @ 100 mls/hr IV Q8H [facility] Losartan Potassium (Losartan 25 Mg Tablet) 25 mg PO [facility] Stop: 08/21/25 21:59 Last Admin: 08/21/24 21:49 Dose: 25 mg Metoprolol Succinate (Metoprolol Succinate 100 Mg Tab.Er.24h) 100 mg PO [facility] Stop: 08/21/25 21:59 Last Admin: 08/21/24 21:49 Dose: 100 mg Morphine Sulfate (Morphine Sulfate 2 Mg/Ml Vial) 2 mg IV-PUSH Q4H PRN PRN Reason: Pain Scale 8 - 10 Pantoprazole Sodium (Pantoprazole 40 Mg Vial) 40 mg IV-PUSH DAILY [facility] Stop: 08/22/25 08:59 Prochlorperazine Edisylate (Prochlorperazine Edisylate 10 Mg/2 Ml Vial) 5 mg IV- PUSH Q4H PRN PRN Reason: Nausea And Vomiting Stop: 08/21/25 14:10 Sodium Chloride (Sodium Chloride 0.9 % 10 Ml Syringe) 0 ml IV-PUSH PRN PRN PRN Reason: Flush Stop: 08/21/25 11:20 Sodium Chloride (Sodium Chloride 0.9 % 10 Ml Vial.Pf) 10 ml INJECTION PRN PRN PRN Reason: Dilution Stop: 08/21/25 14:10 Sodium Chloride (Sodium Chloride 0.9 % 10 Ml Syringe) 10 ml IV-PUSH PRN PRN PRN Reason: Flush Stop: 08/21/25 14:10 Spironolactone (Spironolactone 25 Mg Tablet) 25 mg PO QAM [facility] Stop: 08/22/25 08:59 Exam Physical Exam Vital Signs: Temp Pulse Resp BP Pulse Ox O2 Del Method 97.9 F 75 16 107/76 94 L Room Air 08/22/24 03:11 08/22/24 03:11 08/22/24 03:11 08/22/24 03:11 08/22/24 03:11 08/22/24 03:11 Const General: cooperative and no acute distress GI Palpation: soft, no guarding, mass (In the left lower abdominal wall, there is approximately 3 cm firm mass. ) and tender (Over mass) in the LLQ Neuro General: patient alert and patient awake Objective Intake & Output 24 hour I&O: Intake & Output 08/21/24 08/22/24 08/22/24 23:59 07:59 15:59 Intake Total 350 / 450 260 / 260 Balance 350 / 450 260 / 260 Weight 68.4 kg Labs 08/22/24 06:48 08/22/24 06:48 Laboratory Results - Last 48 hrs. 08/22/24 06:48: Corrected WBC 11.5 H, Uncorrected WBC Count 11.5 H, RBC 4.55, Hgb 13.2, Hct 38.7 L,MCV 85.1, MCH 29.1, MCHC 34.1, RDW 13.8, Plt Count 275, MPV 8.7, Neut % (Auto) 67.8, Lymph % (Auto)19.9, Moody % (Auto) 9.4, Eos % (Auto) 2.3, Baso % (Auto) 0.6, Nucleat RBC Rel Count 0.1, Neut # (Auto) 7.8 H, Lymph # (Auto) 2.3, Moody # (Auto) 1.1 H, Eos # (Auto) 0.3, Baso # (Auto) 0.1, PT12.3, INR1.1, APTT 30.2, PHA Creatinine Clear 83.07, Sodium 136, Potassium 4.0,Chloride 100, Carbon Dioxide 29.2, Anion Gap 10.8, BUN 13, Creatinine 0.67 L, Est GFR (CKD-EPI) > 60.0, Glucose 100, Calcium 8.8, Total Bilirubin 0.4, AST 14,ALT 16, Alkaline Phosphatase 76, Total Protein 7.0, Albumin 3.7, Globulin 3.3, Albumin/Globulin Ratio 1.1 08/21/24 16:15: Urine Color Yellow, Urine Appearance Cloudy A, Urine pH 7.0, Ur Specific [place] 1.041 H, Urine Protein 20 H, Urine Glucose (UA) Normal, Urine Ketones Trace H, Urine Occult Blood Negative, Urine Nitrite Negative, Urine Bilirubin Negative, Urine Urobilinogen Normal, Ur Leukocyte Esterase Negative, Urine RBC 3-4, Urine WBC 3-4, Ur Squamous Epith Cells 1-2, Urine Bacteria None seen, Hyaline Casts None, Urine Mucus Rare 08/21/24 11:45: Corrected WBC 16.1 H, Uncorrected WBC Count 16.1 H, RBC 4.70, Hgb 13.7, Hct 40.4, MCV 85.8, MCH 29.0, MCHC 33.8, RDW 13.8, Plt Count 275, MPV 8.5, Neut % (Auto) 81.5, Lymph % (Auto) 10.6, Moody % (Auto) 6.8, Eos % (Auto) 0.6, Baso % (Auto) 0.5, Nucleat RBC Rel Count 0.0, Neut # (Auto) 13.1 H, Lymph #(Auto) 1.7, Moody # (Auto) 1.1 H, Eos # (Auto) 0.1, Baso # (Auto) 0.1, Monocyte DistWidth 19.38, PHA Creatinine Clear 83.07, Sodium 137, Potassium 3.7, Chloride 102, Carbon Dioxide 25.3, Anion Gap 13.4, BUN 19, Creatinine 0.78, Est GFR (CKD- EPI) > 60.0, Glucose 166 H, Calcium 9.5, Total Bilirubin 0.4, Direct Bilirubin 0.10, Indirect Bilirubin 0.3, AST 16, ALT 19, Alkaline Phosphatase 87,Total Protein 7.6, Albumin 4.0, Globulin 3.6, Albumin/Globulin Ratio 1.1, [id number] A&P - General Surgery Assessment/Plan (1) Diverticulitis large intestine: Qualifiers: Diverticulitis bleeding: without bleeding Diverticulitis complication: with abscess Qualified Code(s): K57.20 - Diverticulitis of large intestine withperforation and abscess without bleeding Plan I did speak with radiology today. We will arrange for CT-guided drainage of theperidiverticular abscess. Continue IV antibiotics. White blood cell count decreased to 11,000. Documented By: Ines [facility] MD 08/22/24903 Signed By: 08/22/24 0906 [facility]06-01-2025 Consult note Author Ines Wayne [facility] Note Date/Time August 21, 2024 6:48p m [facility] [address] [place] [address] General Surgery Consult Note Signed Patient: Domo Piña MR#: [id number] : 1960 Acct:[id number] Age/Sex: 64 / M Adm Date: 5 Loc: Room: [address] [place] [address] Type: ADM IN Attending Dr: Tiffany Masters MD Copies to: MD Vijay Love DO Obaydah M Daromar, MD~ History of Present Illness Date of consult: 08/21/2024 Requesting/Attending Provider: Tiffany Masters MD History of present illness: The patient is a 64-year-old male who presents with about a 3-day history of swelling in the left lower abdominal wall. This has been a little tender. Patient has been eating. He denies vomiting. Denies fevers. He denies change in bowel habits. Patient presented to the emergency room. CT scan showed:IMPRESSION: Acute diverticulitis at the junction of the descending and sigmoid colon. Suspected up to 2 cm abscess lateral to the inflamed of bowel which extends into the lateral wall the lateral to the inguinal canal. No direct inguinal hernia. White blood cell count 16,000. Currently, patient denies abdominal pain. He has been eating. He denies history of similar symptoms. Patient had a colonoscopy in [place] about 2 yearsago. He states this showed diverticulosis. Only abdominal surgery was a right inguinal hernia repair about 60 years ago. Patient has a history of coronary disease and cardiomyopathy. He had a previouscardiac catheterization which showed some blockages but not felt to require stent or bypass. 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 Review of Systems Constitutional Constitutional: Denies fever(s) Cardiovascular Cardiovascular: Denies chest pain Respiratory Respiratory: Reports dyspnea Gastrointestinal Gastrointestinal: Reports abdominal pain (Over site of mass in left lower abdominal wall), Denies hematochezia and Denies vomiting Neurologic Neurologic: Denies syncope [facility] Medical History Ischemic cardiomyopathy LHC: occluded RCA, occluded OM branch, mod LAD - 04/2022, Echo: LVEF 45%, normal RV size/function - 07/2023 Vasomotor rhinitis Sinus tachycardia Screening PSA (prostate specific antigen) Primary osteoarthritis, unspecified shoulder (06/04/18) Positive colorectal cancer screening using Cologuard test Other fecal abnormalities Hollenhorst plaque, left eye Encounter for screening for malignant neoplasm of prostate Encounter for screening for malignant neoplasm of colon (06/05/18) Depression screening COVID Cigarette nicotine dependence, uncomplicated Cigarette nicotine dependence without complication Branch retinal vein occlusion of left eye with macular edema Acute maxillary sinusitis, unspecified (04/24/17) Acute bronchitis due to other specified organisms Nicotine addiction Chronic HFrEF (heart failure with reduced ejection fraction) Echocardiogram: LVEF 40% - 2022, Echo: LVEF 40-50% - 2023 Surgical History H/O colonoscopy (~04/2022) History of left heart catheterization (LHC) (~04/2022) Moderate coronary disease LAD, POST GRADUATE INTERN RCA, POST GRADUATE INTERN OM Family History Father Hypertension Diabetes Mother Social History Smoking Status: Former smoker Substance Use Type: None Allergies & Medications Medications and Allergies Allergies No Known Allergies Allergy (Verified 08/21/24 11:22) Home Medications aspirin 81 mg tablet,delayed release 81 mg PO DAILY 04/10/24 [History Confirmed 08/21/24] atorvastatin 80 mg tablet 80 mg PO QPM 04/10/24 [History Confirmed 08/21/24] losartan 25 mg tablet 25 mg PO DAILY 04/10/24 [History Confirmed 08/21/24] metoprolol succinate 100 mg tablet,extended release 24 hr 100 mg PO DAILY 04/10/24 [History Confirmed 08/21/24] spironolactone 25 mg tablet 25 mg PO QAM 04/10/24 [History Confirmed 08/21/24] Active Medications Acetaminophen (Acetaminophen 325 Mg Tablet) 650 mg PO Q6HR PRN PRN Reason: Pain Scale 1 - 3 or fever Stop: 08/21/25 14:10 Aspirin (Aspirin 81 Mg Tablet.) 81 mg PO DAILY [facility] Stop: 08/22/25 08:59 Atorvastatin Calcium (Atorvastatin 80 Mg Tablet) 80 mg PO QPM [facility] Stop: 08/21/25 20:59 Heparin Sodium (Porcine) (Heparin 5,000 Unit/Ml Vial) 5,000 unit SUBCUT Q12HR [facility] Stop: 08/21/25 20:59 Lactated Ringer's (Lactated Ringers) 1,000 mls @ 60 mls/hr IV .[id number] [facility] Stop: 08/22/24 06:54 Last Admin: 08/21/24 16:11 Dose: 60 mls/hr Piperacillin Sod/Tazobactam Sod (Zosyn) 3.375 gm in 100 mls @ 25 mls/hr IV Q8H [facility] Last Admin: 08/21/24 16:10 Dose: 25 mls/hr Losartan Potassium (Losartan 25 Mg Tablet) 25 mg PO DAILY [facility] Stop: 08/22/25 08:59 Metoprolol Succinate (Metoprolol Succinate 100 Mg Tab.Er.24h) 100 mg PO DAILY [facility] Stop: 08/22/25 08:59 Morphine Sulfate (Morphine Sulfate 2 Mg/Ml Vial) 2 mg IV-PUSH Q4H PRN PRN Reason: Pain Scale 8 - 10 Pantoprazole Sodium (Pantoprazole 40 Mg Vial) 40 mg IV-PUSH DAILY [facility] Stop: 08/22/25 08:59 Prochlorperazine Edisylate (Prochlorperazine Edisylate 10 Mg/2 Ml Vial) 5 mg IV- PUSH Q4H PRN PRN Reason: Nausea And Vomiting Stop: 08/21/25 14:10 Sodium Chloride (Sodium Chloride 0.9 % 10 Ml Syringe) 0 ml IV-PUSH PRN PRN PRN Reason: Flush Stop: 08/21/25 11:20 Sodium Chloride (Sodium Chloride 0.9 % 10 Ml Vial.Pf) 10 ml INJECTION PRN PRN PRN Reason: Dilution Stop: 08/21/25 14:10 Sodium Chloride (Sodium Chloride 0.9 % 10 Ml Syringe) 10 ml IV-PUSH PRN PRN PRN Reason: Flush Stop: 08/21/25 14:10 Spironolactone (Spironolactone 25 Mg Tablet) 25 mg PO QAM [facility] Stop: 08/22/25 08:59 Exam Physical Exam Vital Signs: Temp Pulse Resp BP Pulse Ox O2 Del Method 97.6 F 86 16 113/77 96 Room Air 08/21/24 17:00 08/21/24 17:00 08/21/24 17:00 08/21/24 17:00 08/21/24 17:00 08/21/24 17:00 Const General: cooperative and no acute distress HEENT Head: atraumatic Eyes Sclera: sclerae normal (Anicteric) Resp Auscultation: clear to auscultation bilaterally Cardio Rate: regular rate Rhythm: regular rhythm GI Palpation: soft, no guarding, mass (In the left lower abdominal wall, there is approximately 3 cm firm mass. ) and tender (Over mass) in the LLQ Other: Over the left lower quadrant abdominal wall mass, there is no erythema. No openareas or drainage. The mass is over the abdominal wall and does not extend intothe inguinal region. Neuro General: patient alert and patient awake Results - Gen. Surgery Intake and Output 24 hour I&O: Intake & Output 08/21/24 08/21/24 08/21/24 07:59 15:59 23:59 Intake Total 100 / 100 250 / 350 Balance 100 / 100 250 / 350 Weight 64 kg Labs 08/21/24 11:45 08/21/24 11:45 Laboratory Results - last 72 hr 08/21/24 16:15: Urine Color Yellow, Urine Appearance Cloudy A, Urine pH 7.0, Ur Specific [place] 1.041 H, Urine Protein 20 H, Urine Glucose (UA) Normal, Urine Ketones Trace H, Urine Occult Blood Negative, Urine Nitrite Negative, Urine Bilirubin Negative, Urine Urobilinogen Normal, Ur Leukocyte Esterase Negative, Urine RBC 3-4, Urine WBC 3-4, Ur Squamous Epith Cells 1-2, Urine Bacteria None seen, Hyaline Casts None, Urine Mucus Rare 08/21/24 11:45: Corrected WBC 16.1 H, Uncorrected WBC Count 16.1 H, RBC 4.70, Hgb 13.7, Hct 40.4, MCV 85.8, MCH 29.0, MCHC 33.8, RDW 13.8, Plt Count 275, MPV 8.5, Neut % (Auto) 81.5, Lymph % (Auto) 10.6, Moody % (Auto) 6.8, Eos % (Auto) 0.6, Baso % (Auto) 0.5, Nucleat RBC Rel Count 0.0, Neut # (Auto) 13.1 H, Lymph #(Auto) 1.7, Moody # (Auto) 1.1 H, Eos # (Auto) 0.1, Baso # (Auto) 0.1, Monocyte Dist Width 19.38, PHA Creatinine Clear 83.07, Sodium 137, Potassium 3.7, Chloride 102, Carbon Dioxide 25.3, Anion Gap 13.4, BUN 19, Creatinine 0.78, Est GFR (CKD-EPI) > 60.0, Glucose 166 H, Calcium 9.5, Total Bilirubin 0.4, Direct Bilirubin 0.10, Indirect Bilirubin 0.3, AST 16, ALT 19, Alkaline Phosphatase 87,Total Protein 7.6, Albumin 4.0, Globulin 3.6, Albumin/Globulin Ratio 1.1, [id number] A&P - General Surgery (1) Diverticulitis large intestine: Qualifiers: Diverticulitis bleeding: without bleeding Diverticulitis complication: with abscess Qualified Code(s): K57.20 - Diverticulitis of large intestine withperforation and abscess without bleeding Plan Patient currently does not have an acute surgical abdomen. Continue IV antibiotics. Monitor exam, white blood cell count, Abscess/mass. If patient's condition becomes worse, may require surgery (colectomy/colostomy/abscess drainage). If this episode is able to be resolved nonoperatively, patient still may requireabscess drainage. Also, patient may require eventual colonoscopy in several weeks after acute diverticulitis has resolved. Documented By: Ines [facility] MD 08/21/241839 Signed By: <Electronically signed by MD Ines Wayne> 08/21/24 [facility] Work Phone: [phone] [address] General Surgery Consult Note Signed Patient: Domo Piña MR#: [id number] : 1960 Acct:[id number] Age/Sex: 64 / M Adm Date: 5 Loc: 3T Room: [address] [place] [address] Type: ADM IN Attending Dr: Tiffany Masters MD Copies to: MD Vijay Love DO Obaydah M Daromar, MD~ History of Present Illness Date of consult: 08/21/2024 Requesting/Attending Provider: Tiffany Masters MD History of present illness: The patient is a 64-year-old male who presents with about a 3-day history of swelling in the left lower abdominal wall. This has been a little tender. Patient has been eating. He denies vomiting. Denies fevers. He denies change in bowel habits. Patient presented to the emergency room. CT scan showed :IMPRESSION: Acute diverticulitis at the junction of the descending and sigmoid colon. Suspected upto 2 cm abscess lateral to the inflamed of bowel which extends into the lateral wall the lateral tothe inguinal canal. No direct inguinal hernia. White blood cell count 16,000. Currently, patient denies abdominal pain. He has been eating. He denies history of similar symptoms. Patient [place] colon[place] in [place] about 2 yearsago. He states this showed diverticulosis. Only abdominal surgery was a right inguinal hernia repair about 60 years ago. Patient has a history of coronary disease and cardiomyopathy. He had a previouscardiac catheterization which showed some blockages but not felt to require stent or bypass. 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 Review of Systems Constitutional Constitutional: Denies fever(s) Cardiovascular Cardiovascular: Denies chest pain Respiratory Respiratory: Reports dyspnea Gastrointestinal Gastrointestinal: Reports abdominal pain (Over site of mass in left lower abdominal wall), Denies hematochezia and Denies vomiting Neurologic Neurologic: Denies syncope [facility] Medical History Ischemic cardiomyopathy LHC: occluded RCA, occluded OM branch, mod LAD - 04/2022, Echo: LVEF 45%, normal RV size/function - 07/2023 Vasomotor rhinitis Sinus tachycardia Screening PSA (prostate specific antigen) Primary osteoarthritis, unspecified shoulder (06/04/18) Positive colorectal cancer screening using Cologuard test Other fecal abnormalities Hollenhorst plaque, left eye Encounter for screening for malignant neoplasm of prostate Encounter for screening for malignant neoplasm of colon (06/05/18) Depression screening COVID Cigarette nicotine dependence, uncomplicated Cigarette nicotine dependence without complication Branch retinal vein occlusion of left eye with macular edema Acute maxillary sinusitis, unspecified (04/24/17) Acute bronchitis due to other specified organisms Nicotine addiction Chronic HFrEF (heart failure with reduced ejection fraction) Echocardiogram: LVEF 40% - 2022, Echo: LVEF 40-50% - 2023 Surgical History H/O colonoscopy (~04/2022) History of left heart catheterization (LHC) (~04/2022) Moderate coronary disease LAD, POST GRADUATE INTERN RCA, POST GRADUATE INTERN OM Family History Father Hypertension Diabetes Mother Social History Smoking Status: Former smoker Substance Use Type: None Allergies & Medications Medications and Allergies Allergies No Known Allergies Allergy (Verified 08/21/24 11:22) Home Medications aspirin 81 mg tablet,delayed release 81 mg PO DAILY 04/10/24 [History Confirmed 08/21/24] atorvastatin 80 mg tablet 80 mg PO QPM 04/10/24 [History Confirmed 08/21/24] losartan 25 mg tablet 25 mg PO DAILY 04/10/24 [History Confirmed 08/21/24] metoprolol succinate 100 mg tablet,extended release 24 hr 100 mg PO DAILY 04/10/24 [History Confirmed 08/21/24] spironolactone 25 mg tablet 25 mg PO QAM 04/10/24 [History Confirmed 08/21/24] Active Medications Acetaminophen (Acetaminophen 325 Mg Tablet) 650 mg PO Q6HR PRN PRN Reason: Pain Scale 1 - 3 or fever Stop: 08/21/25 14:10 Aspirin (Aspirin 81 Mg Tablet.) 81 mg PO DAILY [facility] Stop: 08/22/25 08:59 Atorvastatin Calcium (Atorvastatin 80 Mg Tablet) 80 mg PO QPM [facility] Stop: 08/21/25 20:59 Heparin Sodium (Porcine) (Heparin 5,000 Unit/Ml Vial) 5,000 unit SUBCUT Q12HR [facility] Stop: 08/21/25 20:59 Lactated Ringer's (Lactated Ringers) 1,000 mls @ 60 mls/hr IV .[id number] [facility] Stop: 08/22/24 06:54 Last Admin: 08/21/24 16:11 Dose: 60 mls/hr Piperacillin Sod/Tazobactam Sod (Zosyn) 3.375 gm in 100 mls @ 25 mls/hr IV Q8H [facility] Last Admin: 08/21/24 16:10 Dose: 25 mls/hr Losartan Potassium (Losartan 25 Mg Tablet) 25 mg PO DAILY [facility] Stop: 08/22/25 08:59 Metoprolol Succinate (Metoprolol Succinate 100 Mg Tab.Er.24h) 100 mg PO DAILY [facility] Stop: 08/22/25 08:59 Morphine Sulfate (Morphine Sulfate 2 Mg/Ml Vial) 2 mg IV-PUSH Q4H PRN PRN Reason: Pain Scale 8 - 10 Pantoprazole Sodium (Pantoprazole 40 Mg Vial) 40 mg IV-PUSH DAILY [facility] Stop: 08/22/25 08:59 Prochlorperazine Edisylate (Prochlorperazine Edisylate 10 Mg/2 Ml Vial) 5 mg IV- PUSH Q4H PRN PRN Reason: Nausea And Vomiting Stop: 08/21/25 14:10 Sodium Chloride (Sodium Chloride 0.9 % 10 Ml Syringe) 0 ml IV-PUSH PRN PRN PRN Reason: Flush Stop: 08/21/25 11:20 Sodium Chloride (Sodium Chloride 0.9 % 10 Ml Vial.Pf) 10 ml INJECTION PRN PRN PRN Reason: Dilution Stop: 08/21/25 14:10 Sodium Chloride (Sodium Chloride 0.9 % 10 Ml Syringe) 10 ml IV-PUSH PRN PRN PRN Reason: Flush Stop: 08/21/25 14:10 Spironolactone (Spironolactone 25 Mg Tablet) 25 mg PO QAM [facility] Stop: 08/22/25 08:59 Exam Physical Exam Vital Signs: Temp Pulse Resp BP Pulse Ox O2 Del Method 97.6 F 86 16 113/77 96 Room Air 08/21/24 17:00 08/21/24 17:00 08/21/24 17:00 08/21/24 17:00 08/21/24 17:00 08/21/24 17:00 Const General: cooperative and no acute distress HEENT Head: atraumatic Eyes Sclera: sclerae normal (Anicteric) Resp Auscultation: clear to auscultation bilaterally Cardio Rate: regular rate Rhythm: regular rhythm GI Palpation: soft, no guarding, mass (In the left lower abdominal wall, there is approximately 3 cm firm mass. ) and tender (Over mass) in the LLQ Other: Over the left lower quadrant abdominal wall mass, there is no erythema. No openareas or drainage. The mass is over the abdominal wall and does not extend intothe inguinal region. Neuro General: patient alert and patient awake Results - Gen. Surgery Intake and Output 24 hour I&O: Intake & Output 08/21/24 08/21/24 08/21/24 07:59 15:59 23:59 Intake Total 100 / 100 250 / 350 Balance 100 / 100 250 / 350 Weight 64 kg Labs 08/21/24 11:45 08/21/24 11:45 Laboratory Results - last 72 hr 08/21/24 16:15: Urine Color Yellow, Urine Appearance Cloudy A, Urine pH 7.0, Ur Specific [place] 1.041 H, Urine Protein 20 H, Urine Glucose (UA) Normal, Urine Ketones Trace H, Urine Occult Blood Negative, Urine Nitrite Negative, Urine Bilirubin Negative, Urine Urobilinogen Normal, Ur Leukocyte Esterase Negative, Urine RBC 3-4, Urine WBC 3-4, Ur Squamous Epith Cells 1-2, Urine Bacteria None seen, Hyaline Casts None, Urine Mucus Rare 08/21/24 11:45: Corrected WBC 16.1 H, Uncorrected WBC Count 16.1 H, RBC 4.70, Hgb 13.7, Hct 40.4, MCV 85.8, MCH 29.0, MCHC 33.8, RDW 13.8, Plt Count 275, MPV 8.5, Neut % (Auto) 81.5, Lymph % (Auto) 10.6, Moody % (Auto) 6.8, Eos % (Auto) 0.6, Baso % (Auto) 0.5, Nucleat RBC Rel Count 0.0, Neut # (Auto) 13.1 H, Lymph #(Auto) 1.7, Moody # (Auto) 1.1 H, Eos # (Auto) 0.1, Baso # (Auto) 0.1, Monocyte DistWidth 19.38, PHA Creatinine Clear 83.07, Sodium 137, Potassium 3.7, Chloride 102, Carbon Dioxide 25.3, Anion Gap 13.4, BUN 19, Creatinine 0.78, Est GFR (CKD- EPI) > 60.0, Glucose 166 H, Calcium 9.5, Total Bilirubin 0.4, Direct Bilirubin 0.10, Indirect Bilirubin 0.3, AST 16, ALT 19, Alkaline Phosphatase 87,Total Protein 7.6, Albumin 4.0, Globulin 3.6, Albumin/Globulin Ratio 1.1, [id number] A&P - General Surgery (1) Diverticulitis large intestine: Qualifiers: Diverticulitis bleeding: without bleeding Diverticulitis complication: with abscess Qualified Code(s): K57.20 - Diverticulitis of large intestine withperforation and abscess without bleeding Plan Patient currently does not have an acute surgical abdomen. Continue IV antibiotics. Monitor exam, white blood cell count, Abscess/mass. If patient's condition becomes worse, may require surgery (colectomy/colostomy/abscess drainage). If this episode is able to be resolved nonoperatively, patient still may requireabscess drainage. Also, patient may require eventual colonoscopy in several weeks after acute diverticulitis has resolved. Documented By: Ines [facility] MD 08/21/241839 Signed By: 08/21/24 1848 [facility]06-01-2025 History and physical note Author Tiffany Masters [facility] Note Date/Time August 21, 2024 2:21p m [facility] [address] [place] [address] Hospitalist H&P Signed Patient: Domo Piña MR#: [id number] : 1960 Acct:[id number] Age/Sex: 64 / M Adm Date: 5 Loc: 3T Room: [address] [place] [address] Type: ADM IN Attending Dr: Tiffany Masters MD Copies to: DO Tiffany Grewal MD~ HPI DATE OF EXAMINATION: 08/21/24 CHIEF COMPLAINT: lower abdominal pain HISTORY OF PRESENT ILLNESS: Patient is a 64-year-old white male with medical history as listed below presented to the ER due to left groin pain for about 3 days that was getting worse, denies any nausea or vomiting, he does report 2-3 times diarrhea over thepast few days. at bedside reports that patient has been feeling ill on andoff over the past month with intermittent fevers and chills, denies any chest pain or shortness of breath. Patient had colonoscopy couple years ago and was told he has diverticulosis. here in the ER patient presented afebrile, normotensive, found to have leukocytosis, CT abdomen/pelvis showed a sigmoid diverticulitis with 2 cm abscess lateral to the inflamed bowel which extends into the lateral wall to inguinal canal. Patient was medicated with IV Dilaudidand Zosyn in the ER, surgery team was notified in the ER and advised admit to hospitalist team for further evaluation and management conservative management. Review of Systems Review of Systems All other systems reviewed & are negative unless noted below or in HPI [facility] Medical History Ischemic cardiomyopathy LHC: occluded RCA, occluded OM branch, mod LAD - 04/2022, Echo: LVEF 45%, normal RV size/function - 07/2023 Vasomotor rhinitis Sinus tachycardia Screening PSA (prostate specific antigen) Primary osteoarthritis, unspecified shoulder (06/04/18) Positive colorectal cancer screening using Cologuard test Other fecal abnormalities Hollenhorst plaque, left eye Encounter for screening for malignant neoplasm of prostate Encounter for screening for malignant neoplasm of colon (06/05/18) Depression screening COVID Cigarette nicotine dependence, uncomplicated Cigarette nicotine dependence without complication Branch retinal vein occlusion of left eye with macular edema Acute maxillary sinusitis, unspecified (04/24/17) Acute bronchitis due to other specified organisms Nicotine addiction Chronic HFrEF (heart failure with reduced ejection fraction) Echocardiogram: LVEF 40% - 2022, Echo: LVEF 40-50% - 2023 Surgical History H/O colonoscopy (~04/2022) History of left heart catheterization (LHC) (~04/2022) Moderate coronary disease LAD, POST GRADUATE INTERN RCA, POST GRADUATE INTERN OM Family History Father Hypertension Diabetes Mother Social History Smoking Status: Former smoker Substance Use Type: None Meds Medications and Allergies Allergies No Known Allergies Allergy (Verified 08/21/24 11:22) Home Medications aspirin 81 mg tablet,delayed release 81 mg PO DAILY 04/10/24 [History Confirmed 08/21/24] atorvastatin 80 mg tablet 80 mg PO QPM 04/10/24 [History Confirmed 08/21/24] losartan 25 mg tablet 25 mg PO DAILY 04/10/24 [History Confirmed 08/21/24] metoprolol succinate 100 mg tablet,extended release 24 hr 100 mg PO DAILY 04/10/24 [History Confirmed 08/21/24] spironolactone 25 mg tablet 25 mg PO QAM 04/10/24 [History Confirmed 08/21/24] Exam Physical Exam Vital Signs: Temp Pulse Resp BP Pulse Ox O2 Del Method 97.6 F 78 16 122/84 96 Room Air 08/21/24 14:08 08/21/24 14:08 08/21/24 14:08 08/21/24 14:08 08/21/24 14:08 08/21/24 14:08 Narrative: Const General: cooperative, tired appearing HEENT Normal oropharyngeal mucosa without any ulcers or exudates Eyes: Conjunctiva normal Pulmonary Auscultation: clear to auscultation , no crackles, no wheezes Cardiovascular Rate: normal rate Rhythm: regular rhythm Heart Sounds: S1 normal, S2 normal and no murmurs GI Inspection: non-distended Palpation: soft, LLQ tenderness. No rigidity or rebound. Deferred Neuro General: alert, awake and oriented x3. No obvious new focal deficit Musculoskeletal: normal range of motion Extrem General: no cyanosis, no pedal edema Psych Appearance: appropriate affect. Grossly normal Results - Hospitalist H&P Lab Results Labs: Laboratory Last Values Corrected WBC 16.1 X10E3/uL (4.1-10.5) H 08/21/24 11:45 Uncorrected WBC Count 16.1 x10E3/uL (4.1-10.5) H 08/21/24 11:45 RBC 4.70 x10E6/uL (3.90-5.60) 08/21/24 11:45 Hgb 13.7 g/dL (13.0-17.0) 08/21/24 11:45 Hct 40.4 % (38.8-50.0) 08/21/24 11:45 MCV 85.8 fl (83.5-101) 08/21/24 11:45 MCH 29.0 pg (27.5-35.2) 08/21/24 11:45 MCHC 33.8 g/dL (32.5-35.6) 08/21/24 11:45 RDW 13.8 % (12.0-14.8) 08/21/24 11:45 Plt Count 275 x10E3/uL (150-450) 08/21/24 11:45 MPV 8.5 fl (6.6-10.1) 08/21/24 11:45 Neut % (Auto) 81.5 % (.) 08/21/24 11:45 Lymph % (Auto) 10.6 % (.) 08/21/24 11:45 Moody % (Auto) 6.8 % (.) 08/21/24 11:45 Eos % (Auto) 0.6 % (.) 08/21/24 11:45 Baso % (Auto) 0.5 % (.) 08/21/24 11:45 Nucleat RBC Rel Count 0.0 /100 WBC (0-0.5) 08/21/24 11:45 Neut # (Auto) 13.1 x10E3/uL (1.8-7.7) H 08/21/24 11:45 Lymph # (Auto) 1.7 x10E3/uL (1.00-4.8) 08/21/24 11:45 Moody # (Auto) 1.1 x10E3/uL (0.0-0.8) H 08/21/24 11:45 Eos # (Auto) 0.1 x10E3/uL (0.0-0.45) 08/21/24 11:45 Baso # (Auto) 0.1 x10E3/uL (0.0-0.2) 08/21/24 11:45 Monocyte Dist Width 19.38 % (0.00-20.00) 08/21/24 11:45 PHA Creatinine Clear 83.07 08/21/24 11:45 Sodium 137 mmol/L (136-145) 08/21/24 11:45 Potassium 3.7 mmol/L (3.5-5.1) 08/21/24 11:45 Chloride 102 mmol/L (98-107) 08/21/24 11:45 Carbon Dioxide 25.3 mmol/L (21.0-31.0) 08/21/24 11:45 Anion Gap 13.4 mEq/L (6.0-15.0) 08/21/24 11:45 BUN 19 mg/dL (7-25) 08/21/24 11:45 Creatinine 0.78 mg/dL (0.70-1.30) 08/21/24 11:45 Est GFR (CKD-EPI) > 60.0 mL/Min 08/21/24 11:45 Glucose 166 mg/dL (70-100) H 08/21/24 11:45 Calcium 9.5 mg/dL (8.6-10.3) 08/21/24 11:45 Total Bilirubin 0.4 mg/dl (0.3-1.0) 08/21/24 11:45 Direct Bilirubin 0.10 mg/dL (0.03-0.18) 08/21/24 11:45 Indirect Bilirubin 0.3 mg/dL 08/21/24 11:45 AST 16 U/L (13-39) 08/21/24 11:45 ALT 19 U/L (7-52) 08/21/24 11:45 Alkaline Phosphatase 87 U/L (34-104) 08/21/24 11:45 Total Protein 7.6 gm/dL (6.4-8.9) 08/21/24 11:45 Albumin 4.0 gm/dL (3.5-5.7) 08/21/24 11:45 Globulin 3.6 gm/dL 08/21/24 11:45 Albumin/Globulin Ratio 1.1 08/21/24 11:45 Lipase 16.0 U/L (11.0-82.0) 08/21/24 11:45 Assessment & Plan Assessment/Plan (1) Acute diverticulitis: (2) Colonic diverticular abscess: Plan - Afebrile here, has leukocytosis - CT abdomen pelvis showed sigmoid diverticulitis with 2 cm abscess lateral to the inflamed bowel which extends into the lateral wall to inguinal canal. - Gentle IV hydration given his cardiac history - Start IV antibiotics as directed - Supportive care with antiemetics, pain control as needed as directed - Surgery team was consulted, continue conservative management for now Home medications verified and resumed as appropriate Diet: Soft GI diet DVT ppx: heparin GI ppx: PPI Code status: Full Status: inpatient Discussed with patient and at bedside. All questions answered. In agreementwith the above plan Tiffany Finch MD Internal Medicine Hospitalist Attending Physician IP vs OBS Justification Based on differential dx, clinical care plan, and risk of adverse events, if untreated, in my clinical judgement this patient requires an acute care setting as: INPATIENT because of an expectation of an over 2 midnight stay. Estimated length of stay (# of days): 3 Documented By: Tiffany Masters MD 08/21/24 14 13 Signed By: <Electronically signed by Tiffany Masters MD> 08/21/24 1421 [facility] Work Phone: 1([phone]) 683-386706-01-2025 Evaluation note* Diagnosis Onset Date Resolution Status Admit Date Acute diverticulitis acute August 21, 2024 12:53pm Colonic diverticular abscess acute August 21, 2024 12:53pm Diverticulitis large intestine acute August 21, 2024 12:53pm Perforation of sigmoid colon due to diverticulitis acute August 21, 2024 12:53pm [facility] Work Phone: [phone]) 385-644506-01-2025 Evaluation note* Diagnosis Onset Date Resolution Status Admit Date Acute diverticulitis inactive August 21, 2024 12:53pm Colonic diverticular abscess inactiv e August 21, 2024 12:53pm Perforation of sigmoid colon due to diverticulitis inactive August 21, 2024 12:53pm Diverticulitis large intestine delet ed August 21, 2024 12:53pm Chronic HFrEF (heart failure with reduced ejection fraction) acute September 08, 2024 10:01am Diverticulitis of intestine with perforation and abscess acute August 10:01am Elevated cholesterol acute September 08, 2024 10:01am Impaired fasting glucose acute September 08, 2024 10:01am Ischemic cardiomyopathy acute J 2024 10:01am Nicotine addiction acute August 212024 10:01am ASHD (arteriosclerotic heart disease) acute October 04, 2024 8:35pm Chronic HFrEF (heart failure with reduced ejection fraction) acute October 04, 2024 8:35pm Inguinal abscess acute September 8:35pm Right foot pain acute September 8:35pm [facility] Work Phone: 1(314) 629-233106-01-2025 Evaluation note* Diagnosis Onset Date Resolution Status Admit Date Acute diverticulitis inactive August 21, 2024 12:53pm Colonic diverticular abscess inactiv e August 21, 2024 12:53pm Perforation of sigmoid colon due to diverticulitis inactive August 21, 2024 12:53pm Diverticulitis large intestine delet ed August 21, 2024 12:53pm Chronic HFrEF (heart failure with reduced ejection fraction) acute September 08, 2024 10:01am Diverticulitis of intestine with perforation and abscess acute August 10:01am Elevated cholesterol acute September 08, 2024 10:01am Impaired fasting glucose acute September 08, 2024 10:01am Ischemic cardiomyopathy acute J 2024 10:01am Nicotine addiction acute August 212024 10:01am ASHD (arteriosclerotic heart disease) acute October 04, 2024 8:35pm Chronic HFrEF (heart failure with reduced ejection fraction) acute October 04, 2024 8:35pm Diverticulitis of intestine with perforation and abscess acute September 8:35pm Inguinal abscess acute September 8:35pm Right foot pain acute September 8:35pm [facility] Work Phone: [phone]) 726-318806-01-2025 Evaluation note* Diagnosis Onset Date Resolution Status Admit Date Acute diverticulitis inactive August 21, 2024 12:53pm Colonic diverticular abscess inactiv e August 21, 2024 12:53pm Perforation of sigmoid colon due to diverticulitis inactive August 21, 2024 12:53pm Diverticulitis large intestine delet ed August 21, 2024 12:53pm Chronic HFrEF (heart failure with reduced ejection fraction) acute September 08, 2024 10:01am Diverticulitis of intestine with perforation and abscess acute Dre 2024 10:01am Elevated cholesterol acute September 08, 2024 10:01am Impaired fasting glucose acute September 08, 2024 10:01am Ischemic cardiomyopathy acute J une 2024 10:01am Nicotine addiction acute August 212024 10:01am ASHD (arteriosclerotic heart disease) acute October 04, 2024 8:35pm Chronic HFrEF (heart failure with reduced ejection fraction) acute October 04, 2024 8:35pm Diverticulitis of intestine with perforation and abscess acute Sep 8:35pm Inguinal abscess 2024 acute September 8:35pm Right foot pain resolved September 8:35pm Abscess of skin of abdomen acute October 25, 2024 2:31pm Chronic HFrEF (heart failure with reduced ejection fraction) acute October 25, 2024 2:31pm Diverticulitis of intestine with perforation and abscess acute Oct 2:31pm Elevated cholesterol acute 2024 2:31pm Fistula of sigmoid colon acute October 25, 2024 2:31pm Impaired fasting glucose acute October 25, 2024 2:31pm Ischemic cardiomyopathy acute A ugust 2024 2:31pm Nicotine addiction acute October 25, 2024 2:31pm [facility] Work Phone: 1([phone]) 269-536706-01-2025 [place] [address] Hospitalist H&P Signed Patient: Domo Piña MR#: [id number] : 1960 Acct:[id number] Age/Sex: 64 / M Adm Date: 5 Loc: Room: [address] [place] [address] Type: ADM IN Attending Dr: Tiffany Masters MD Copies to: DO Tiffany Grewal MD~ HPI DATE OF EXAMINATION: 08/21/24 CHIEF COMPLAINT: lower abdominal pain HISTORY OF PRESENT ILLNESS: Patient is a 64-year-old white male with medical history as listed below presented to the ER due toleft groin pain for about 3 days that was getting worse, denies any nausea or vomiting, he does report 2-3 times diarrhea over thepast few days. at bedside reports that patient has been feeling ill on andoff over the past month with intermittent fevers and chills, denies any chest pain or shortness of breath. Patient had colonoscopy couple years ago and was told he has diverticulosis. here in the ER patient presented afebrile, normotensive, found to have leukocytosis, CT abdomen/pelvis showed a sigmoid diverticulitis with 2 cm abscess lateral to the inflamed bowel which extends into the lateral wall to inguinal canal. Patient was medicated with IV Dilaudidand Zosyn in the ER, surgery team was notified in the ER and advised admit to hospitalist team for further evaluation and management conservative management. Review of Systems Review of Systems All other systems reviewed & are negative unless noted below or in HPI [facility] Medical History Ischemic cardiomyopathy LHC: occluded RCA, occluded OM branch, mod LAD - 04/2022, Echo: LVEF 45%, normal RV size/function - 07/2023 Vasomotor rhinitis Sinus tachycardia Screening PSA (prostate specific antigen) Primary osteoarthritis, unspecified shoulder (06/04/18) Positive colorectal cancer screening using Cologuard test Other fecal abnormalities Hollenhorst plaque, left eye Encounter for screening for malignant neoplasm of prostate Encounter for screening for malignant neoplasm of colon (06/05/18) Depression screening COVID Cigarette nicotine dependence, uncomplicated Cigarette nicotine dependence without complication Branch retinal vein occlusion of left eye with macular edema Acute maxillary sinusitis, unspecified (04/24/17) Acute bronchitis due to other specified organisms Nicotine addiction Chronic HFrEF (heart failure with reduced ejection fraction) Echocardiogram: LVEF 40% - 2022, Echo: LVEF 40-50% - 2023 Surgical History H/O colonoscopy (~04/2022) History of left heart catheterization (LHC) (~04/2022) Moderate coronary disease LAD, POST GRADUATE INTERN RCA, POST GRADUATE INTERN OM Family History Father Hypertension Diabetes Mother Social History Smoking Status: Former smoker Substance Use Type: None Meds Medications and Allergies Allergies No Known Allergies Allergy (Verified 08/21/24 11:22) Home Medications aspirin 81 mg tablet,delayed release 81 mg PO DAILY 04/10/24 [History Confirmed 08/21/24] atorvastatin 80 mg tablet 80 mg PO QPM 04/10/24 [History Confirmed 08/21/24] losartan 25 mg tablet 25 mg PO DAILY 04/10/24 [History Confirmed 08/21/24] metoprolol succinate 100 mg tablet,extended release 24 hr 100 mg PO DAILY 04/10/24 [History Confirmed 08/21/24] spironolactone 25 mg tablet 25 mg PO QAM 04/10/24 [History Confirmed 08/21/24] Exam Physical Exam Vital Signs: Temp Pulse Resp BP Pulse Ox O2 Del Method 97.6 F 78 16 122/84 96 Room Air 08/21/24 14:08 08/21/24 14:08 08/21/24 14:08 08/21/24 14:08 08/21/24 14:08 08/21/24 14:08 Narrative: Const General: cooperative, tired appearing HEENT Normal oropharyngeal mucosa without any ulcers or exudates Eyes: Conjunctiva normal Pulmonary Auscultation: clear to auscultation , no crackles, no wheezes Cardiovascular Rate: normal rate Rhythm: regular rhythm Heart Sounds: S1 normal, S2 normal and no murmurs GI Inspection: non-distended Palpation: soft, LLQ tenderness. No rigidity or rebound. Deferred Neuro General: alert, awake and oriented x3. No obvious new focal deficit Musculoskeletal: normal range of motion Extrem General: no cyanosis, no pedal edema Psych Appearance: appropriate affect. Grossly normal Results - Hospitalist H&P Lab Results Labs: Laboratory Last Values Corrected WBC 16.1 X10E3/uL (4.1-10.5) H 08/21/24 11:45 Uncorrected WBC Count 16.1 x10E3/uL (4.1-10.5) H 08/21/24 11:45 RBC 4.70 x10E6/uL (3.90-5.60) 08/21/24 11:45 Hgb 13.7 g/dL (13.0-17.0) 08/21/24 11:45 Hct 40.4 % (38.8-50.0) 08/21/24 11:45 MCV 85.8 fl (83.5-101) 08/21/24 11:45 MCH 29.0 pg (27.5-35.2) 08/21/24 11:45 MCHC 33.8 g/dL (32.5-35.6) 08/21/24 11:45 RDW 13.8 % (12.0-14.8) 08/21/24 11:45 Plt Count 275 x10E3/uL (150-450) 08/21/24 11:45 MPV 8.5 fl (6.6-10.1) 08/21/24 11:45 Neut % (Auto) 81.5 % (.) 08/21/24 11:45 Lymph % (Auto) 10.6 % (.) 08/21/24 11:45 Moody % (Auto) 6.8 % (.) 08/21/24 11:45 Eos % (Auto) 0.6 % (.) 08/21/24 11:45 Baso % (Auto) 0.5 % (.) 08/21/24 11:45 Nucleat RBC Rel Count 0.0 /100 WBC (0-0.5) 08/21/24 11:45 Neut # (Auto) 13.1 x10E3/uL (1.8-7.7) H 08/21/24 11:45 Lymph # (Auto) 1.7 x10E3/uL (1.00-4.8) 08/21/24 11:45 Moody # (Auto) 1.1 x10E3/uL (0.0-0.8) H 08/21/24 11:45 Eos # (Auto) 0.1 x10E3/uL (0.0-0.45) 08/21/24 11:45 Baso # (Auto) 0.1 x10E3/uL (0.0-0.2) 08/21/24 11:45 Monocyte Dist Width 19.38 % (0.00-20.00) 08/21/24 11:45 PHA Creatinine Clear 83.07 08/21/24 11:45 Sodium 137 mmol/L (136-145) 08/21/24 11:45 Potassium 3.7 mmol/L (3.5-5.1) 08/21/24 11:45 Chloride 102 mmol/L (98-107) 08/21/24 11:45 Carbon Dioxide 25.3 mmol/L (21.0-31.0) 08/21/24 11:45 Anion Gap 13.4 mEq/L (6.0-15.0) 08/21/24 11:45 BUN 19 mg/dL (7-25) 08/21/24 11:45 Creatinine 0.78 mg/dL (0.70-1.30) 08/21/24 11:45 Est GFR (CKD-EPI) > 60.0 mL/Min 08/21/24 11:45 Glucose 166 mg/dL (70-100) H 08/21/24 11:45 Calcium 9.5 mg/dL (8.6-10.3) 08/21/24 11:45 Total Bilirubin 0.4 mg/dl (0.3-1.0) 08/21/24 11:45 Direct Bilirubin 0.10 mg/dL (0.03-0.18) 08/21/24 11:45 Indirect Bilirubin 0.3 mg/dL 08/21/24 11:45 AST 16 U/L (13-39) 08/21/24 11:45 ALT 19 U/L (7-52) 08/21/24 11:45 Alkaline Phosphatase 87 U/L (34-104) 08/21/24 11:45 Total Protein 7.6 gm/dL (6.4-8.9) 08/21/24 11:45 Albumin 4.0 gm/dL (3.5-5.7) 08/21/24 11:45 Globulin 3.6 gm/dL 08/21/24 11:45 Albumin/Globulin Ratio 1.1 08/21/24 11:45 Lipase 16.0 U/L (11.0-82.0) 08/21/24 11:45 Assessment & Plan Assessment/Plan (1) Acute diverticulitis: (2) Colonic diverticular abscess: Plan - Afebrile here, has leukocytosis - CT abdomen pelvis showed sigmoid diverticulitis with 2 cm abscess lateral to the inflamed bowel which extends into the lateral wall to inguinal canal. - Gentle IV hydration given his cardiac history - Start IV antibiotics as directed - Supportive care with antiemetics, pain control as needed as directed - Surgery team was consulted, continue conservative management for now Home medications verified and resumed as appropriate Diet: Soft GI diet DVT ppx: heparin GI ppx: PPI Code status: Full Status: inpatient Discussed with patient and at bedside. All questions answered. In agreementwith the above plan Tiffany Finch MD Internal Medicine Hospitalist Attending Physician IP vs OBS Justification Based on differential dx, clinical care plan, and risk of adverse events, if untreated, in my clinical judgement this patient requires an acute care setting as: INPATIENT because of an expectation ofan over 2 midnight stay. Estimated length of stay (# of days): 3 Documented By: Tiffany Masters MD 08/21/24 14 13 Signed By: 08/21/24 1421 [facility]06-01-2025 Radiology Diagnostic study note [facility] Main [place] [address] [place] [address] CT Scan Report Signed Patient: Domo Piña MR#: [id number] : 1960 Acct:[id number] Age/Sex: 64 / M ADM Date: 5 Loc: ER Room: Type: [facility] ER Attending Dr: Copies to: Nicholas Valle MD~ Ordering Provider: Nicholas Valle MD Date of Service: 08/21/24 CT/CT abdomen pelvis wo con: abdominal pain CT Abdomen and Pelvis withoutcontrast TECHNIQUE: Axial imaging with 2-D reconstruction. . The CT exam was performed using one or more thefollowing dose reduction techniques: Automated exposure control, adjustment of the MA and/or Kv according to patient size, or use of theiterative reconstruction technique. COMPARISON: None History: Left groin hernia for 4 days. Right hernia repair LIMITATIONS: None LOWER THORAX Unremarkable LIVER: Unremarkable GALLBLADDER: No gallbladder abnormality identified. BILE DUCTS: No dilatation SPLEEN: Unremarkable PANCREAS: Unremarkable ADRENAL GLANDS: Unremarkable KIDNEYS:Unremarkable AORTA: No abdominal aortic aneurysm identified. RETROPERITONEUM: No significant retroperitoneal abnormalities identified. MESENTERY:Unremarkable SMALL BOWEL: The small bowel loops are nondistended. APPENDIX: The appendix is normal. COLON: At the junction of the descending and sigmoid colon there is a segment ofbowel wall thickening present. Adjacent fatty peridiverticular stranding identified. Extensive descending and sigmoid colon diverticulosis. Collateral to the small bowel loops is collection of fluid and air extending lateral to theinguinal canal. Collection measures up to 2 cm. Additional possible communicating collection of fluid and air seen in subcutaneous tissues. This measures up to 16 mm. Mildly prominent adjacent lymph nodes present. URINARY BLADDER: Urinary bladder is unremarkable. REPRODUCTIVE SYSTEM: Reproductive structures are unremarkable. PNEUMOPERITONEUM: None PERITONEAL FLUID:None BONY STRUCTURES: Unremarkable ABDOMINAL WALL: Unremarkable CT/CT abdomen pelvis wo con IMPRESSION: Acute diverticulitis at the junction of the descending and sigmoid colon. Suspected up to 2 cm abscess lateral to the inflamed of bowel which extends into the lateral wall the lateral to the inguinal canal. No direct inguinal hernia. May consider follow-up endoscopic assessment after therapy.. Impression dictated by: Rohan Lazaro M.D. 08/21/2024 12:23 PM Dictation Location: [id number]-20 Transcribed By: [facility] 08/21/24 1223 Dictated By: Rohan Lazaro DO 08/21/24 1209 Signed By: 08/21/24 1223 [facility]05-12-2025 NoteUT Cardiology - [facility] Subjective Domo Piña is a 64 y.o. year old male. Patient states he was at the [employer] doing work, patient states he got chills, pale, shaking patient state it lasted about 2 hour, he went home and went to sleep and woke up feeling normal patient states he slept about 5 hours. Patient states dyspnea with exertion. Patient denies chest pain, lightheaded, leg swelling or palpitations Patient did not do stress test or pulmonary consult. Patient Active Problem List Diagnosis Chronic systolic congestive heart failure (CMS/HCC) Vasomotor rhinitis Positive colorectal cancer screening using Cologuard test Nicotine dependence IFG (impaired fasting glucose) Coronary artery disease involving [place] coronary artery of [place] heart without angina pectoris Mixed hyperlipidemia Family History Problem Relation Name Age of Onset COPD Mother Heart attack Father Coronary artery disease Father Other (CABG) Father Social History Tobacco Use Smoking status: Former Current packs/day: 0.50 Types: Cigarettes Smokeless tobacco: Never Substance Use Topics Alcohol use: Not Currently Drug use: Yes Types: Marijuana GERRI Domo is seen in follow-up. This is the first time I am meeting him. He was following up in our office with Dr. Jarocho Wilson. He is a 64-year-old man with history of heart failure with mildly reduced LV ejection fraction likely due to ischemic cardiomyopathy. He underwent cardiac catheterization for investigation on 04/28/2022 that showed occluded right coronary artery that was of small caliber and moderate disease in the left coronary system. He was recommended medical management. His LV systolic function is estimated around 40 to 45%. He is currently maintained on aspirin, atorvastatin, losartan, metoprolol succinate and spironolactone. At last visit in February 2025 or he was complaining of shortness of breath. A stress test was ordered and a referral to pulmonary was placed however he did not undergo the stress test and did not schedule follow-up with pulmonary. Today he is seen because a couple days ago he did not feel well as he felt cold and chills sensation and was tired throughout the day and had to sleep until he felt better. He did not have chest pain. He did not have any palpitations or dizziness. He reports that he has been having shortness of breath with exertion NYHA class II-III symptoms. He has to rest until those symptoms resolved. Review of Systems Cardiovascular: Positive for dyspnea on exertion. Negative for chest pain, irregular heartbeat, leg swelling, orthopnea, palpitations and syncope. Respiratory: Negative for cough and shortness of breath. Musculoskeletal: Negative for arthritis, falls and neck pain. Gastrointestinal: Negative for diarrhea and dysphagia. Neurological: Negative for light-headedness and loss of balance. Objective Visit Vitals BP 122/82 (BP Location: Left arm, Patient Position: Sitting) Pulse 84 Ht 1.676 m (5' 6 ) Wt 64 kg (141 lb) SpO2 97% BMI 22.76 kg/m??? Smoking Status Former BSA 1.73 m??? Physical Exam Constitutional: Appearance: He is well-developed. He is not ill-appearing. HENT: Head: Normocephalic and atraumatic. Nose: Nose normal. Eyes: General: No scleral icterus. Pupils: Pupils are equal, round, and reactive to light. Neck: Thyroid: No thyromegaly. Vascular: No JVD. Cardiovascular: Rate and Rhythm: Normal rate and regular rhythm. Pulses: Radial pulses are 2+ on the right side and 2+ on the left side. Heart sounds: Normal heart sounds. No murmur heard. No friction rub. No gallop. Pulmonary: Effort: Pulmonary effort is normal. No respiratory distress. Breath sounds: Normal breath sounds. No wheezing or rales. Chest: Chest wall: No tenderness. Abdominal: General: Bowel sounds are normal. There is no distension. Palpations: Abdomen is soft. Tenderness: There is no abdominal tenderness. Musculoskeletal: General: No swelling. Cervical back: Neck supple. Skin: General: Skin is warm and dry. Neurological: General: No focal deficit present. Mental Status: He is alert and oriented to person, place, and time. Psychiatric: Mood and Affect: Mood normal. Behavior: Behavior is cooperative. Judgment: Judgment normal. Allergies Allergies Allergen Reactions Lisinopril Hives Medications Current Outpatient Medications: aspirin 81 mg EC tablet, Take 81 mg by mouth in the morning., Disp: , Rfl: atorvastatin (Lipitor) 80 mg tablet, Take 1 tablet (80 mg) by mouth at bedtime., Disp: 90 tablet, Rfl: 3 losartan (Cozaar) 25 mg tablet, TAKE 1 TABLET BY MOUTH EVERY DAY DIRECTED, Disp: 90 tablet, Rfl: 3 metoprolol succinate XL (Toprol-XL) 100 mg 24 hr tablet, Take 1 tablet (100 mg) by mouth once daily as directed. Do not crush or chew., Disp: 14 tablet, Rfl: 0 spironolactone (Aldactone) 25 mg tablet, TAKE (more content not included)... [facility]12-12-[address] [facility] SUBJECTIVE HPI Patient was initially referred to Cardiology for reduced EF. Cardiac cath was performed for newly reduced Mid range systolic heart failure- EF 40-45%, with noted moderate non obstructive CAD in proximal to mid LAD post cath. Patient here for 6 mo follow-up chronic systolic heart failure, non-obstructive CAD, and hyperlipidemia. He stopped smoking about 3 months ago. has concerns about his LUNA and his constant congestion . Says PCP gave him nasal spray for this and it hasn't helped. He denies chest pain, palpitations, and lightheadedness/syncope. Patient Active Problem List Diagnosis Chronic systolic congestive heart failure (CMS/HCC) Vasomotor rhinitis Positive colorectal cancer screening using Cologuard test Nicotine dependence IFG (impaired fasting glucose) Coronary artery disease involving [place] coronary artery of [place] heart without angina pectoris Mixed hyperlipidemia Past Medical History: Diagnosis Date Coronary artery disease Hyperlipidemia Family History Problem Relation Name Age of Onset Heart attack Father Coronary artery disease Father Other (CABG) Father Social History Tobacco Use Smoking status: Every Day Current packs/day: 0.50 Types: Cigarettes Smokeless tobacco: Never Substance Use Topics Alcohol use: Not Currently Allergies Allergen Reactions Lisinopril Hives Review of Systems Constitutional: Positive for malaise/fatigue. Cardiovascular: Positive for dyspnea on exertion. Respiratory: Positive for snoring. Musculoskeletal: Positive for arthritis and myalgias. All other systems reviewed and are negative. OBJECTIVE Visit Vitals Smoking Status Every Day Medications: Current Outpatient Medications: aspirin 81 mg EC tablet, Take 81 mg by mouth in the morning., Disp: , Rfl: atorvastatin (Lipitor) 80 mg tablet, TAKE 1 TABLET BY MOUTH IN THE MORNING, Disp: 90 tablet, Rfl: 3 losartan (Cozaar) 25 mg tablet, Take 1 tablet (25 mg) by mouth once daily as directed., Disp: 90 tablet, Rfl: 0 metoprolol succinate XL (Toprol-XL) 100 mg 24 hr tablet, Take 1 tablet (100 mg) by mouth once daily as directed. Do not crush or chew., Disp: 30 tablet, Rfl: 11 spironolactone (Aldactone) 25 mg tablet, TAKE 1 TABLET BY MOUTH IN THE MORNING, Disp: 90 tablet, Rfl: 3 Physical Exam [...] Final Atrial Rate 04/28/[address] Interval 04/28/2022 124 ms Final QRS DURATION 04/28/2022 90 ms Final QT Interval 04/28/2022 344 ms Final QTC CALCULATION(BAZETT) 04/28/2022 416 ms Final P Edmond 04/28/2022 89 degrees Final R-Edmond 04/28/2022 17 degrees Final T Wave Edmond 04/28/2022 66 degrees Final Glucose 04/22/2022 106 [...] 20, eGFR >60, K 4.1, Na 139 02/01/22 CBC normal NA 140 normal Renal function normal- BUN 15, CR 0.94 K+-4.2 normal Liver function normal Chol 199, Trig 94, HDL 53, LDL 127.2 Testing/Procedures: 04/28/22 heart cath- Final Impressions: -POST GRADUATE INTERN of small sized RCA. Distal vessel appears to fill via left to right collaterals -OM3 is a small caliber vessel with subtotal occlusion in the proximal to mid portion of the vessel. The distal vessel fills via left to left collaterals -moderate non obstructive CAD in proximal to mid LAD Recomme (more content not included)...[facility] 09-07-[address] [facility] SUBJECTIVE Domo Piña is a 63 y.o. male here for follow-up. HPI Patient was initially referred to Cardiology for reduced EF. Cardiac cath was performed for newly reduced Mid range systolic heart failure- EF 40-45%, with noted moderate non obstructive CAD in proximal to mid LAD post cath. Patient presents today for follow up. Patient adamantly denies any cardiac complaints or concerns. Patient denies any chest pain or shortness of breath. Patient denies any lower extremity edema, orthopnea, or proximal nocturnal dyspnea. No near-syncope or syncope. No dizziness or lightheadedness. He is physically active and denies any activity related symptoms. Patient Active Problem List Diagnosis Chronic systolic congestive heart failure (CMS/HCC) Vasomotor rhinitis Positive colorectal cancer screening using Cologuard test Nicotine dependence IFG (impaired fasting glucose) Coronary artery disease involving [place] coronary artery of [place] heart without angina pectoris Mixed hyperlipidemia Past Medical History: Diagnosis Date Coronary artery disease Hyperlipidemia Family History Problem Relation Name Age of Onset Heart attack Father Coronary artery disease Father Other (CABG) Father Social History Tobacco Use Smoking status: Every Day Packs/day: .5 Types: Cigarettes Smokeless tobacco: Never Substance Use Topics Alcohol use: Not Currently Allergies Allergen Reactions Lisinopril Hives Review of Systems All other systems reviewed and are negative. Musculoskeletal: Positive for arthritis and myalgias. All other systems reviewed and are negative. OBJECTIVE Visit Vitals Ht 1.676 m (5' 6 ) BMI 21.63 kg/m??? Smoking Status Every Day BSA 1.68 m??? Medications: Current Outpatient Medications: aspirin 81 mg EC tablet, Take 81 mg by mouth in the morning., Disp: , Rfl: atorvastatin (Lipitor) 80 mg tablet, TAKE 1 TABLET BY MOUTH IN THE MORNING, Disp: 90 tablet, Rfl: 3 losartan (Cozaar) 25 mg tablet, Take 1 tablet (25 mg) by mouth once daily as directed., Disp: 90 tablet, Rfl: 3 metoprolol succinate XL (Toprol-XL) 100 mg 24 hr tablet, Take 1 tablet (100 mg) by mouth in the morning. Do not crush or chew., Disp: 30 tablet, Rfl: 11 spironolactone (Aldactone) 25 mg tablet, Take 1 tablet (25 mg) by mouth in the morning., Disp: 90 tablet, Rfl: 3 Physical Exam [...] Final Atrial Rate 04/28/[address] Interval 04/28/2022 124 ms Final QRS DURATION 04/28/2022 90 ms Final QT Interval 04/28/2022 344 ms Final QTC CALCULATION(BAZETT) 04/28/2022 416 ms Final P Edmond 04/28/2022 89 degrees Final R-Edmond 04/28/2022 17 degrees Final T Wave Edmond 04/28/2022 66 degrees Final Glucose 04/22/2022 106 [...] 20, eGFR >60, K 4.1, Na 139 02/01/22 CBC normal NA 140 normal Renal function normal- BUN 15, CR 0.94 K+-4.2 normal Liver function normal Chol 199, Trig 94, HDL 53, LDL 127.2 Testing/Procedures: 04/28/22 heart cath- Final Impressions: -POST GRADUATE INTERN of small sized RCA. Distal vessel appears to fill via left to right collaterals -OM3 is a small caliber vessel with subtotal occlusion in the proximal to mid portion of the vessel. The distal vessel fills via left to left collaterals -moderate non ob (more content not included)...[facility]01-19-2024 Evaluation note* Encounter Date Diagnosis Assessment Notes Treatment Notes Treatment Clinical Notes Mar, Acute bronchitis due to other specified organisms (ICD-10 - J20.8) [facility] [employer] Other 02-10-2023 Evaluation note* Encounter Date Diagnosis Assessment Notes Treatment Notes Treatment Clinical Notes Apr, ASHD (arteriosclerotic heart disease) (ICD-10 - I25.10) LHC: LAD 50%, diagonal 30% + 70%, OM subtotal - 04/2022 [facility] [employer] Other 01-30-2023 Note [id number]:[email or web address] 04-18-2022 Evaluation + Plan noteExtracted from: Title:ANES Post-operative Note Author:Domo Carroll MD Date:04/18/22 Plan Transfer/Discharge: Transfer/Discharge Discharge when meets criteria ( To home ). Extracted from: Title:ANES Pre-operative Note Author:Javid Carroll MD Date:04/18/22 Plan [place] [employer] Anesthesiologists (ASA) physical status classification: Class II. Anesthetic Preoperative Plan: Anesthesia General. [facility]01-27-2023 Hospital Discharge instructions Patient Education 04/18/2022 08:32:55 [...] unsweetened, w/added ascorbic acid 1 cup 0.5 [place] 1 cup 0.7 Vegetables Cooked Green beans 1 cup 4.0 Carrots 1/2 cup sliced 2.3 Peas 1 cup 8.8 Potato (baked, with skin) 1 medium potato 3.8 Raw [place] (with peel) 1 cucumber 1.5 Lettuce 1 [...] 8.7 Peanuts 1/2 cup 7.9 Chart from [facility] 2013. SEEK IMMEDIATE MEDICAL CARE IF: You [...] of Agriculture (USDA) National Nutrient Database at: http://www.Cortica.usda.gov/fnic/foodcomp/search/ Created using data from the USDA National Nutrient Database for Standard Reference. Available at http://www.Cortica.usda.gov/fnic/foodcomp/search/. Information adapted from: [facility] Patient Information 2009 [employer]. [facility] 2012 http://www.[employer]/contents/knrkdbpbhiph-uhryvtz-nrqonj-the-basics 04/18/2022 08:32:55 Colonoscopy, Care After Surgery Salam (CUSTOM) Colonoscopy Care After Surgery Please read the instructions outlined below and refer to this sheet in the next few weeks. These discharge instructions provide you with general information on caring for yourself [facility] Your doctor may also give you specific [...] day. Follow Up Care 03/25/2022 09:34:20 With:Bill CORCORAN Address: [address] [place], [place] [id number] Business (1) When:7 to 10 days [facility]01-27-2023 NotePatient: DOMO PIÑA Age: 62 years Sex: Male : 1960 Associated Diagnoses: None Author: Bill CORCORAN MD Subjective no changes to H & PFFlower HospitalComment on above:Result Comment: Electronically Signed By: Bill CORCORAN MD\.br\Date and Time Signed: 04/18/22 07:54 [id number] Evaluation note* Encounter Date Diagnosis Assessment Notes Treatment Notes Treatment Clinical Notes Mar, HFrEF (heart failure with reduced ejection fraction) (ICD-10 - I50.20) [facility] Other 01-19-2023 Evaluation note* Encounter Date Diagnosis [...] history of coronary arteriosclerosis (ICD-10 - Z82.49) [facility] Other Evaluation + Plan note Future Appointments Appointment Date:04/11/2022 03:15:00 PM Scheduled Provider: Location:[facility] Appointment Type:Surgery PAT COVID Testing Appointment Date:04/18/2022 08:00:00 AM Scheduled Provider: Location:[facility] Appointment Type:Surgery FT [facility] [place] Evaluation noteNo InformationNort [employer] Other evaluation noteNo assessment information available [facility] Work Phone: evaluation note* Diagnosis Onset Date Resolution Status Admit Date Perforation of sigmoid colon due to diverticulitis acute August 21, 2024 12:53pm [facility] Work Phone: Evaluation note* Diagnosis Diverticulitis of large intestine with perforation and abscess without bleeding documented in this encounter [facility]* Diagnosis Diverticulitis of large intestine with perforation and abscess without bleeding- Primary Colonic diverticular abscess documented in this encounter [facility]* Diagnosis Diverticulitis of large intestine with perforation and abscess without bleeding- Primary documented in this encounter [facility] HealthcareEvaluation note* Diagnosis Hypertrophic granulation tissue- Primary Other abnormal granulation tissue Diverticulitis of large intestine with perforation and abscess without bleeding documented in this encounter [facility] HealthcareEvaluation note* Diagnosis Diverticulitis- Primary Diverticulitis of colon (without mention of hemorrhage) Congestive heart failure, unspecified HF chronicity, unspecified heart failure type (HCC) Dyspnea on exertion Other dyspnea and respiratory abnormality Diverticulitis Diverticulitis of colon (without mention of hemorrhage) documented in this encounter [facility] note* Diagnosis Diverticulitis- Primary Diverticulitis of colon (without mention of hemorrhage) Diverticulitis Diverticulitis of colon (without mention of hemorrhage) documented in this encounter [facility] note* Diagnosis Diverticulitis- Primary Diverticulitis of colon (without mention of hemorrhage) Screening for malignant neoplasm of colon Diverticulitis Diverticulitis of colon (without mention of hemorrhage) documented in this encounter [facility] note* Diagnosis Pre-op evaluation- Primary Preoperative examination, unspecified Chronic systolic congestive heart failure (HCC) Chronic systolic heart failure Coronary artery disease involving [place] coronary artery of [place] heart without angina pectoris Former smoker Personal history of tobacco use, presenting hazards to health Hyperlipidemia, unspecified hyperlipidemia type Hypertension, unspecified type IFG (impaired fasting glucose) Impaired fasting glucose Shortness of breath- Primary Diverticulitis Diverticulitis of colon (without mention of hemorrhage) documented in this encounter [facility] note* Diagnosis Pre-op evaluation- Primary Preoperative examination, unspecified Chronic systolic congestive heart failure (HCC) Chronic systolic heart failure Coronary artery disease involving [place] coronary artery of [place] heart without angina pectoris Former smoker Personal history of tobacco use, presenting hazards to health Hyperlipidemia, unspecified hyperlipidemia type Hypertension, unspecified type IFG (impaired fasting glucose) Impaired fasting glucose Nonspecific abnormal finding on cardiac evaluation- Primary Diverticulitis Diverticulitis of colon (without mention of hemorrhage) Diverticulitis Diverticulitis of colon (without mention of hemorrhage) documented in this encounter [facility] note* Diagnosis Pre-op evaluation- Primary Preoperative examination, unspecified Chronic systolic congestive heart failure (HCC) Chronic systolic heart failure Coronary artery disease involving [place] coronary artery of [place] heart without angina pectoris Former smoker Personal history of tobacco use, presenting hazards to health Hyperlipidemia, unspecified hyperlipidemia type Hypertension, unspecified type IFG (impaired fasting glucose) Impaired fasting glucose Chronic obstructive pulmonary disease, unspecified COPD type (HCC)- Primary Encounter for preprocedural respiratory examination Pre-operative respiratory examination Heart failure with reduced ejection fraction (HCC) Heart failure, unspecified Diverticulitis Diverticulitis of colon (without mention of hemorrhage) documented in this encounter [facility] note* Diagnosis Pre-op evaluation- Primary Preoperative examination, unspecified Chronic systolic congestive heart failure (HCC) Chronic systolic heart failure Coronary artery disease involving [place] coronary artery of [place] heart without angina pectoris Former smoker Personal history of tobacco use, presenting hazards to health Hyperlipidemia, unspecified hyperlipidemia type Hypertension, unspecified type IFG (impaired fasting glucose) Impaired fasting glucose Diverticulitis Diverticulitis of colon (without mention of hemorrhage) Screening for malignant neoplasm of colon Diverticulitis Diverticulitis of colon (without mention of hemorrhage) [facility] Pre-op evaluation- Primary Preoperative examination, unspecified Chronic systolic congestive heart failure (HCC) Chronic systolic heart failure Coronary artery disease involving [place] coronary artery of [place] heart without angina pectoris Former smoker Personal history of tobacco use, presenting hazards to health Hyperlipidemia, unspecified hyperlipidemia type Hypertension, unspecified type IFG (impaired fasting glucose) Impaired fasting glucose Shortness of breath Diverticulitis Diverticulitis of colon (without mention of hemorrhage) [facility] Author Navarro Ballesteros [facility] Note Date/Time October 04, 2024 10:3 [facility] [address] [place] [address] Hospitalist H&P Signed Patient: Domo Piña MR#: [id number] : 1960 Acct:[id number] Age/Sex: 64 / M Adm Date: Loc: Room: [address] [place] [address] Type: ADM IN Attending Dr: Navarro Ballesteros DO Copies to: DO Navarro Grewal, DO~ HPI DATE OF EXAMINATION: 10/04/24 CHIEF COMPLAINT: Drainage from wound in left lower quadrant. HISTORY OF PRESENT ILLNESS: I am asked to admit this patient on behalf of general surgery with Dr. Ines [facility]. This is a 64-year-old man who came to the emergency room today with worsening drainage from a 6-week old previous CT scan drainage site in his left lower quadrant. Back on August 26, 2024 Dr. Patel was taking care of the patient for diverticulitis and abscess in the sigmoid colon region. On 08/22/[address]-guided catheter placed. During that hospital stay he was treated with IV Rocephin and Flagyl. He was discharged home with a catheter in place. Shorttime after his discharge cultures came back showing that the wound was growing Pseudomonas. At that point Levaquin was called in. The patient was in the general surgery office of Dr. [facility] yesterday. He says that yesterday evening and last night he began to feel really bad. And he had an episode of diarrhea. His says that the previous catheter insertion site has been draining a lot of purulent material, especially over the last 7 days. They completed the antibiotic with Levaquin about 7 days ago. Additionally, last night, the patient began having pain on his right foot. Thisis on the top part of the foot by the tendons and also on the lateral ankle region. He has never had anything like that. He has never had gout before -perhis report. In the ER this evening he had a follow-up CT scan of the abdomen pelvis that showed: Persistent fat stranding is noted with an extraluminal collection evacuating along the junction of the descending colon and sigmoid colon which appears to have a fistulous connection to a small left inguinal abscess. There is a fistulous tract to an area of skin thickening along the previous drainage site. The drain has been removed. The area of abscess measures 2.3 x 1.6 x 2.8cm in greatest dimension along the left inguinal wall. The ER did make contact with general surgery with Dr. [facility], who asked for the hospitalist to admit the patient overnight. The ER did give IV vancomycin and IV Zosyn. However on the Pseudomonas culture from back on August 22 the Pseudomonas was IB with intermediate beta lactamase resistance to the Zosyn, so I have ordered IV meropenem. Review of Systems Review of Systems Review of systems: 10 systems are reviewed and are negative except as mentioned elsewhere in the documentation. [facility] Medical History Diverticulitis of intestine with perforation and abscess Colonic diverticular abscess Acute diverticulitis Perforation of sigmoid colon due to diverticulitis Ischemic cardiomyopathy LHC: occluded RCA, occluded OM branch, mod LAD - 04/2022, Echo: LVEF 45%, normal RV size/function - 07/2023 Vasomotor rhinitis Sinus tachycardia Screening PSA (prostate specific antigen) Primary osteoarthritis, unspecified shoulder (06/04/18) Positive colorectal cancer screening using Cologuard test Other fecal abnormalities Hollenhorst plaque, left eye Encounter for screening for malignant neoplasm of prostate Encounter for screening for malignant neoplasm of colon (06/05/18) Depression screening COVID Cigarette nicotine dependence, uncomplicated Cigarette nicotine dependence without complication Branch retinal vein occlusion of left eye with macular edema Acute maxillary sinusitis, unspecified (04/24/17) Acute bronchitis due to other specified organisms Nicotine addiction Chronic HFrEF (heart failure with reduced ejection fraction) Echocardiogram: LVEF 40% - 2022, Echo: LVEF 40-50% - 2023 Surgical History H/O colonoscopy (~04/2022) History of left heart catheterization (LHC) (~04/2022) Moderate coronary disease LAD, POST GRADUATE INTERN RCA, POST GRADUATE INTERN OM Family History Father Hypertension Diabetes Mother Social History Smoking Status: Former smoker Substance Use Type: None Current Occupational Status Other:: smoked 1 ppd from 1976 to 2023. About a 27 pack year smoking history. Meds Medications and Allergies Allergies No Known Allergies Allergy (Verified 10/04/24 19:05) Home Medications aspirin 81 mg tablet,delayed release 81 mg PO DAILY 04/10/24 [History Confirmed 10/04/24] atorvastatin 80 mg tablet 80 mg PO QPM 04/10/24 [History Confirmed 10/04/24] losartan 25 mg tablet 25 mg PO HS 04/10/24 [History Confirmed 10/04/24] metoprolol succinate 100 mg tablet,extended release 24 hr 100 mg PO HS 04/10/24 [History Confirmed 10/04/24] spironolactone 25 mg tablet 25 mg PO QAM 04/10/24 [History Confirmed 10/04/24] acetaminophen 325 mg tablet (Tylenol) 650 mg (2 x 325 mg) PO Q6HR PRN Pain Scale1 - 3 or fever 15 days #60 tabs 08/24/24 [Rx Confirmed 10/04/24] Exam Physical Exam Vital Signs: Temp Pulse Resp BP Pulse Ox O2 Del Method 98.3 F 101 H 16 91/55 L 98 Room Air 10/04/24 17:23 10/04/24 21:06 10/04/24 21:06 10/04/24 21:06 10/04/24 21:06 10/04/24 21:06 Narrative: GEN: Awake, alert, oriented x 3. Head: Normal Cephalic, Atraumatic. Eyes: Conjunctiva and sclera clear bilaterally. Nose: External nose and nares normal bilaterally. Mouth: Lips and tongue normal. Neck: No JVD. No thyromegaly. No lymphadenopathy. Lungs: Clear to auscultation bilaterally, no wheezing, no crackles. Heart: Regular rate and rhythm, no murmurs, rubs, or gallops. Abdomen: Mild tenderness to palpation of the left lower quadrant. Small area where the drain had been does not have any cellulitis around it. The gauze overthis does have very brown purulent drainage onto the gauze. No acute peritonealsigns. Bowel sounds normal to auscultation. Lower extremities: No swelling or cords in the calves bilaterally, no edema in the ankles bilaterally. Right foot: Very very mild light pink over the top part of his foot over the tendons going to the 3rd and 4th toe. No streaking of cellulitis of the foot. Very mild light pink color to the skin over the lateral malleolus. This is not very hot to the touch. It is not very edematous. Skin: No systemic rashes or lesions. Psychiatric: Calm. Conversant. Cooperative. Neuro: Awake, Alert, and Oriented x 3. No focal or lateralizing deficits. Results - Hospitalist H&P Lab Results Labs: Laboratory Last Values Corrected WBC 18.1 X10E3/uL (4.1-10.5) H 10/04/24 18:29 Uncorrected WBC Count 18.1 x10E3/uL (4.1-10.5) H 10/04/24 18: RBC 4.73 x10E6/uL (3.90-5.60) 10/04/24 18: Hgb 13.6 g/dL (13.0-17.0) 10/04/24 18: Hct 41.3 % (38.8-50.0) 10/04/24 18: MCV 87.3 fl (83.5-101) 10/04/24 18: MCH 28.7 pg (27.5-35.2) 10/04/24 18: MCHC 32.9 g/dL (32.5-35.6) 10/04/24 18: RDW 14.0 % (12.0-14.8) 10/04/24 18: Plt Count 247 x10E3/uL (150-450) 10/04/24 18: MPV 9.1 fl (6.6-10.1) 10/04/24 18: Neut % (Auto) 84.7 % (.) 10/04/24 18: Lymph % (Auto) 6.8 % (.) 10/04/24 18: Moody % (Auto) 8.0 % (.) 10/04/24 18: Eos % (Auto) 0.1 % (.) 10/04/24: Baso % (Auto) 0.4 % (.) 10/04/24 18: Nucleat RBC Rel Count 0.1 /100 WBC (0-0.5) 10/04/24 18: Neut # (Auto) 15.4 x10E3/uL (1.8-7.7) H 10/04/24 18: Lymph # (Auto) 1.2 x10E3/uL (1.00-4.8) 10/04/24 18: Moody # (Auto) 1.4 x10E3/uL (0.0-0.8) H 10/04/24 18: Eos # (Auto) 0.0 x10E3/uL (0.0-0.45) 10/04/24 18: Baso # (Auto) 0.1 x10E3/uL (0.0-0.2) 10/04/24 18: Monocyte Dist Width 19.07 % (0.00-20.00) 10/04/24 18: PHA Creatinine Clear 79.73 10/04/24 18: Sodium 134 mmol/L (136-145) L 10/04/24 18: Potassium 4.1 mmol/L (3.5-5.1) 10/04/24 18: Chloride 100 mmol/L (98-107) 10/04/24 18: Carbon Dioxide 26.9 mmol/L (21.0-31.0) 10/04/24 18:29 Anion Gap 11.2 mEq/L (6.0-15.0) 10/04/24 18:29 BUN 17 mg/dL (7-25) 10/04/24 18:29 Creatinine 0.79 mg/dL (0.70-1.30) 10/04/24 18:29 Est GFR (CKD-EPI) > 60.0 mL/Min 10/04/24 18:29 Glucose 123 mg/dL (70-100) H 10/04/24 18:29 Lactic Acid 1.1 mmol/L (0.5-1.9) 10/04/24 18:29 Calcium 9.5 mg/dL (8.6-10.3) 10/04/24 18: Total Bilirubin 0.7 mg/dl (0.3-1.0) 10/04/24 18:29 AST 15 U/L (13-39) 10/04/24 18:29 ALT 20 U/L (7-52) 10/04/24 18:29 Alkaline Phosphatase 94 U/L (34-104) 10/04/24 18:29 Total Protein 8.1 gm/dL (6.4-8.9) 10/04/24 18:29 Albumin 4.2 gm/dL (3.5-5.7) 10/04/24 18: Globulin 3.9 gm/dL 10/04/24 18:29 Albumin/Globulin Ratio 1.1 10/04/24 18:29 Lipase 13.0 U/L (11.0-82.0) 10/04/24 18:29 Assessment & Plan Assessment/Plan (1) Inguinal abscess: (2) Right foot pain: (3) ASHD (arteriosclerotic heart disease): (4) Chronic HFrEF (heart failure with reduced ejection fraction): Plan Assessment: Left inguinal abscess, which appears to have a fistulous connection. This is a recurrent problem. History of Pseudomonas isolated from that back in early August. Incidental new problem of right foot pain. Uncertain if this is gout or other form of osteoarthritis. Right now very low clinical suspicion of actual infection of any other joints in the foot. Atherosclerotic coronary artery disease. Chronic heart failure with reduced ejection fraction. Plan: Hospital admission, inpatient status. N.p.o. after midnight in case of any surgery tomorrow. IV meropenem. Continue IV vancomycin that was started in emergency room. The ER did send blood cultures and culture of the drainage. Consult podiatry. Gentle IV fluids overnight. Sleeve compression devices for DVT prophylaxis. Can start medicines for DVT prophylaxis after surgery. He can continue all of his home medications but we will hold aspirin 81 mg daily. Care will be provided by my hospitalist colleagues taking over during the daytime. IP vs OBS Justification Based on differential dx, clinical care plan, and risk of adverse events, if untreated, in my clinical judgement this patient requires an acute care setting as: INPATIENT because of an expectation of an over 2 midnight stay. Estimated length of stay (# of days): 3 Documented By: Navarro Ballesteros DO [id number] Signed By: <Electronically signed by Navarro Ballesteros, > 10/04/242230 [facility] Work Phone: History general Narrative - Reported* Type Description [...] repair Surgical History colonoscopy 04/2022 Surgical History C 04/2022 Hospitalization History see surgical history [facility] Other Hospital course Narrative No data available for this section [facility] [place] Hospital Discharge instructions No data available for this section [facility] [place] [facility] Discharge instructions Additional Instructions Empty and record drain [facility] Discharge instructions Additional Instructions Daily wound care to left inguinal wound- Clean with Vashe. Skin prep the tessie wound. Polymem AG to the wound bed. Secure with Opsite.[facility] Work Phone: Progress note No data available for this section [facility] [place] Reason for visit Narrative* Outpatient Procedure (Routine) - Closed Specialty Diagnoses / Procedures Referred By Contac t Referred To Contact [facility] Diagnoses Diverticulitis Screening for malignant neoplasm of colon Procedures COLONOSCOPY SCREENING COLONOSCOPY FLX DX W/COLLJ SPEC WHEN PFRMD Stephenie Franco, DOM.WILDLIFE ECOLOGIST [address] [place] [address] Phone: tel: fax: [facility] [address] [place] [address] Referral ID Status Reason Start Date Expiration Date V isits Requested Visits Authorized [id number] Closed Auto-Generate d Referral 10/13/2024 10/13/2025 1 1 [facility] Summary Purpose Family History Relationship Condition Age at Onset Recorded Date/T sid father Hypertension Unknown Unknown Diabetes mellitus Unknown mother Unknown Advance Directives Advance Directive Response Recorded Date/ Time Advance Directives No July 30 9:04am Advance Directive Response Recorded Date/ Time Advance Directives No July 30 10:04am Chief Complaint and Reason for Visit Chief Complaint Admit Date lower left abd pain August 21, 2024 12:53 pm Reason for Visit Admit Date Acute diverticulitis August 21, 2024 12:5 3pm Colonic diverticular abscess August 21 12:53pm Diverticulitis large intestine August 21, 2024 12:53pm Perforation of sigmoid colon due to dive rticulitis August 21, 2024 12:53pm Chief Complaint Admit Date upset stomach, congestion April 10, 2024 12:10pm Reason for Visit Admit Date Perforation of sigmoid colon due to dive rticulitis August 21, 2024 12:53pm Chief Complaint Admit Date lower left abd pain August 21, 2024 12:53 pm Amb Documentation August 25, 2024 8:19a m k57.20 September 08, 2024 12:2 2pm rt leg pain October 04, 2024 8:35 pm Reason for Visit Admit Date Acute diverticulitis August 21, 2024 12:5 3pm Colonic diverticular abscess August 21 12:53pm Perforation of sigmoid colon due to dive rticulitis August 21, 2024 12:53pm Diverticulitis large intestine August 21, 2024 12:53pm Chronic HFrEF (heart failure with reduce d ejection fraction) September 08, 2024 10:01am Diverticulitis of intestine with perfora tion and abscess September 08, 2024 10:01am Elevated cholesterol September 08, 2024 10: 01am Impaired fasting glucose September 08, 2024 10:01am Ischemic cardiomyopathy September 08, 2024 10:01am Nicotine addiction September 08, 2024 10:0 1am ASHD (arteriosclerotic heart disease) Ju ly 2024 8:35pm Chronic HFrEF (heart failure with reduce d ejection fraction) October 04, 2024 8:35pm Inguinal abscess October 04, 2024 8:35 pm Right foot pain October 04, 2024 8:35 pm Reason for Visit Admit Date Acute diverticulitis August 21, 2024 12:5 3pm Colonic diverticular abscess August 21 12:53pm Perforation of sigmoid colon due to dive rticulitis August 21, 2024 12:53pm Diverticulitis large intestine August 21, 2024 12:53pm Chronic HFrEF (heart failure with reduce d ejection fraction) September 08, 2024 10:01am Diverticulitis of intestine with perfora tion and abscess September 08, 2024 10:01am Elevated cholesterol September 08, 2024 10: 01am Impaired fasting glucose September 08, 2024 10:01am Ischemic cardiomyopathy September 08, 2024 10:01am Nicotine addiction September 08, 2024 10:0 1am ASHD (arteriosclerotic heart disease) Ju ly 2024 8:35pm Chronic HFrEF (heart failure with reduce d ejection fraction) October 04, 2024 8:35pm Diverticulitis of intestine with perfora tion and abscess October 04, 2024 8:35pm Inguinal abscess October 04, 2024 8:35 pm Right foot pain October 04, 2024 8:35 pm Chief Complaint Admit Date lower left abd pain August 21, 2024 12:53 pm Amb Documentation August 25, 2024 8:19a m [email or web address] September 08, 2024 12:2 2pm rt leg pain October 04, 2024 8:35 pm Abd. abscess October 25, 2024 2:3 1pm Reason for Visit Admit Date Acute diverticulitis August 21, 2024 12:5 3pm Colonic diverticular abscess August 21 025 12:53pm Perforation of sigmoid colon due to dive rticulitis August 21, 2024 12:53pm Diverticulitis large intestine August 21, 2024 12:53pm Chronic HFrEF (heart failure with reduce d ejection fraction) September 08, 2024 10:01am Diverticulitis of intestine with perfora tion and abscess September 08, 2024 10:01am Elevated cholesterol September 08, 2024 10: 01am Impaired fasting glucose September 08, 2024 10:01am Ischemic cardiomyopathy September 08, 2024 10:01am Nicotine addiction September 08, 2024 10:0 1am ASHD (arteriosclerotic heart disease) Ju 2024 8:35pm Chronic HFrEF (heart failure with reduce d ejection fraction) October 04, 2024 8:35pm Diverticulitis of intestine with perfora tion and abscess October 04, 2024 8:35pm Inguinal abscess October 04, 2024 8:35 pm Right foot pain October 04, 2024 8:35 pm Abscess of skin of abdomen October 25 025 2:31pm Chronic HFrEF (heart failure with reduce d ejection fraction) October 25, 2024 2:31pm Diverticulitis of intestine with perfora tion and abscess October 25, 2024 2:31pm Elevated cholesterol October 25, 2024 2: 31pm Fistula of sigmoid colon October 25 2:31pm Impaired fasting glucose October 25 2:31pm Ischemic cardiomyopathy October 25, 2024 2:31pm Nicotine addiction October 25, 2024 2:3 1pm Additional Source Comments Patient Care team informatio n (unrecognized section and content) Team Status: Active Member Role Status Dates Vijay Lozano DO Primary Care Provider Active Team Status: Inactive Member Role Status Dates Vijay Lozano DO Primary Care Provider Active Start: August 21, 2024 End: August 24, 2024 Nicholas Valle MD Emergency Provider Active Star t: August 21, 2024 End: August 24, 2024 Tiffany Masters MD Admit Provider Active Sta rt: August 21, 2024 End: August 24, 2024 Ines Wayne MD Other Provider Active Start: August 21, 2024 End: August 24, 2024 Enoc Zepeda DO Attending Provider Active St art: August 21, 2024 End: August 24, 2024 Team Status: Active Member Role Status Dates Vijay Lozano DO Primary Care Provider Active Start: August 21, 2024 Nicholas Valle MD Emergency Provider Active Star t: August 21, 2024 Tiffany Masters MD Admit Provider, A ttending Provider Active Start: August 21, 2024 Team Status: Inactive Member Role Status Dates Vijay Lozano DO Primary Care Provider Active Start: April 10, 2024 End: April 10, 2024 Tamika Adam APRN Attending Provider Active Start: April 10, 2024 End: April 10, 2024 Planisher Relationship Specialty Start Date End Date Vijay Lozano DO [address] [place] [id number] PCP - General Internal Medicine 08/25/24 Planisher Relationship Specialty Start Date End Date Vijay Lozano DO [address] [place] [id number] PCP - General Internal Medicine 08/25/24 Planisher Relationship Specialty Start Date End Date Vijay Lozano DO [address] [place] [id number] PCP - General Internal Medicine 08/25/24 Planisher Relationship Specialty Start Date End Date Vijay Lozano DO [address] [place] [id number] PCP - General Internal Medicine 08/25/24 Team Status: Active Member Role Status Dates Vijay Lozano DO Primary Care Provider Active Start: August 25, 2024 Radha Burns CMA Attending Provider Active Start: August 25, 2024 Team Status: Inactive Member Role Status Dates Vijay Lozano DO Primary Care Provider Active Start: September 08, 2024 End: September 08, 2024 Vijay Lozano DO Attending Provider Active Sta rt: September 08, 2024 End: September 08, 2024 Team Status: Inactive Member Role Status Dates Vijay Lozano DO Primary Care Provider Active Start: September 08, 2024 End: September 08, 2024 Ines Wayne MD Attending Provider Active Sta rt: September 08, 2024 End: September 08, 2024 Team Status: Active Member Role Status Dates Vijay Lozano DO Primary Care Provider Active Start: October 04, 2024 Kanwal Koroma APRN Emergency Provider Active Start: October 04, 2024 Navarro Ballesteros DO Admit Provider Active Start: October 04, 2024 Navarro Ballesteros , Attending Provider Active Start: October 04, 2024 Planisher Relationship Specialty Start Date End Date Vijay Lozano DO [address] [place] [id number] PCP - General Internal Medicine 08/25/24 Team Status: Inactive Member Role Status Dates Vijay Lozano DO Primary Care Provider Active Start: October 04, 2024 End: October 07, 2024 Kanwal Koroma APRN Emergency Provider Active Start: October 04, 2024 End: October 07, 2024 Navarro Ballesteros DO Admit Provider Active Start: October 04, 2024 End: October 07, 2024 Esdras Muñoz MD Attending Provider Active Start: October 04, 2024 End: October 07, 2024 Ines Wayne MD Other Provider Active Start: October 04, 2024 End: October 07, 2024 Juan Diego Haywood DPM Other Provider Active Sta rt: October 04, 2024 End: October 07, 2024 Planisher Relationship Specialty Start Date End Date Vijay Lozano DO [address] [place] [phone] PCP - General Internal Medicine 08/25/24 Team Status: Inactive Member Role Status Dates Vijay Lozano DO Primary Care Provider Active Start: October 25, 2024 End: October 25, 2024 Vijay Lozano DO Attending Provider Active Sta rt: October 25, 2024 End: October 25, 2024 REASON FOR VISIT (unrecogniz ed section and content) Reason Comments Drain leaking at insertion site Reason Comments Hospital Follow-up [facility] Diverticulit is w/cultures Reason Comments CT results Reason Comments Follow-up Drainage from tube s ite Reason Comments Diverticulitis Reason Comments Appointment Reason Comments Spirometry Specialty Diagnoses / Procedures Referred By Contac t Referred To [facility] Diagnoses Shortness of breath Procedures SPIROMETRY WITH DILATOR IF OBSTRUCTED BRNCDILAT RSPSE SPMTRY PRE&POST-BRNCDILAT ADMN Valentin Bailon MD [address] [place] [address] Phone: tel: fax: [facility] [address] [place] [address] Referral ID Status Reason Start Date Expiration Date V isits Requested Visits Authorized [id number] Closed Auto-Generate d Referral 10/13/2024 11/12/2025 1 1 Reason Comments New Patient Reason Comments Radio Gen A21 (unrecognized sect ion and content) No Status Records FoundNo Status Records FoundNo Status Records FoundNo Status Records FoundNo Status Records FoundNo Status Records Found INFORMATION SOURCE (unrecogn ized section and content) DATE CREATED AUTHOR 07/23/2022 [facility] DATE CREATED AUTHOR AUTHOR'S ORGANIZ ATION 03/28/2023 [facility] DATE CREATED AUTHOR AUTHOR'S ORGANIZ ATION 08/02/2024 [facility] DATE CREATED AUTHOR AUTHOR'S ORGANIZ ATION 10/18/2024 [facility] DATE CREATED AUTHOR AUTHOR'S ORGANIZ ATION 10/30/2024 [facility] DATE CREATED AUTHOR AUTHOR'S ORGANIZ ATION 11/15/2024 [facility] Goals (unrecognized section and content) Goals may be documented in a n alternate section Source Comments (unrecognize d section and content) In the event this informatio n is protected by the Federal Confidentiality of Alcohol and Drug Abuse Patient Records regulations: The Federal rules restrict any use of the information to criminally investigate or prosecute any alcohol or drug abuse patient.[facility] the event this information is protected by the Federal Confidentiality of Alcohol and Drug Abuse Patient Records regulations: The Federal rules restrict any use of the information to criminally investigate or prosecute any alcohol or drug abuse patient.[facility] the event this information is protected by the Federal Confidentiality of Alcohol and Drug Abuse Patient Records regulations: The Federal rules restrict any use of the information to criminally investigate or prosecute any alcohol or drug abuse patient.[facility] the event this information is protected by the Federal Confidentiality of Alcohol and Drug Abuse Patient Records regulations: The Federal rules restrict any use of the information to criminally investigate or prosecute any alcohol or drug abuse patient.[facility] the event this information is protected by the Federal Confidentiality of Alcohol and Drug Abuse Patient Records regulations: The Federal rules restrict any use of the information to criminally investigate or prosecute any alcohol or drug abuse patient.[facility] the event this information is protected by the Federal Confidentiality of Alcohol and Drug Abuse Patient Records regulations: The Federal rules restrict any use of the information to criminally investigate or prosecute any alcohol or drug abuse patient.[facility] the event this information is protected by the Federal Confidentiality of Alcohol and Drug Abuse Patient Records regulations: The Federal rules restrict any use of the information to criminally investigate or prosecute any alcohol or drug abuse patient.[facility] the event this information is protected by the Federal Confidentiality of Alcohol and Drug Abuse Patient Records regulations: The Federal rules restrict any use of the information to criminally investigate or prosecute any alcohol or drug abuse patient.[facility] the event this information is protected by the Federal Confidentiality of Alcohol and Drug Abuse Patient Records regulations: The Federal rules restrict any use of the information to criminally investigate or prosecute any alcohol or drug abuse patient.[facility] the event this information is protected by the Federal Confidentiality of Alcohol and Drug Abuse Patient Records regulations: The Federal rules restrict any use of the information to criminally investigate or prosecute any alcohol or drug abuse patient.[facility] FOR RECORDS PERTAINING TO PATIENTS WHO [...] BE BASED ON THE PRIMARY CLINICAL RECORDS. [facility] [employer] [facility]. provides no warranty or guarantee of the accuracy or completeness of information in this document.
[2024-11-15 10:39] LABS: Hematocrit 42.3 % (42.0-54.0); Hemoglobin 13.7 g/dL (14.0-18.0); Immature Granulocytes Abs Auto 0.03 10^3/uL (0.00-0.03); Immature Granulocytes Pct Auto 0.3 % (0.0-0.5); Lymphocytes Absolute Auto 2.5 10^3/uL (1.2-3.8); Mean Corpuscular HGB Conc 32.4 g/dL (29.9-35.2); Mean Corpuscular Hemoglobin 28.8 pg (25.9-34.0); Mean Corpuscular Volume 89.1 fL (80.0-94.0); Platelet Count 304 10^3/uL (150-450); Red Blood Count 4.75 10^6/uL (4.70-6.10); White Blood Count 9.2 10^3/uL (4.0-11.0)
[2024-11-15 10:48] LABS: Alanine Aminotransferase 34 U/L (16-63); Albumin Globulin Ratio 0.8; Albumin Level 3.8 g/dL (3.4-5.0); Alkaline Phosphatase 103 U/L (46-116); Anion Gap 11.9; Aspartate Amino Transferase 20 U/L (15-37); Blood Urea Nitrogen 16.0 mg/dL (7.0-18.0); Calcium 9.4 mg/dL (8.5-10.1); Carbon Dioxide 28.8 mmol/L (21.0-32.0); Chloride 105 mmol/L (98-107); Cholesterol 78 mg/dL (<=200); Estimated GFR (African America >60 (>=60 mL/min/1.73m^2); Estimated GFR (Non-African Ame >60 (>=60 mL/min/1.73m^2); Globulin 4.5 g/dL; Glucose 106 mg/dL (74-106); HDL Cholesterol 41 mg/dL (40-60); Potassium 3.7 mmol/L (3.5-5.1); Sodium 142 mmol/L (136-145); Total Protein 8.3 g/dL (6.4-8.2); Triglycerides 44 mg/dL (<=150); VLDL CHOLESTEROL 8.8 mg/dL
== END 2024-11-15 09:46 | disposition home or self-care (01) ==
LOC: LAB 09:50
PROVIDERS: PCP Internal Medicine; Visit Provider Internal Medicine
DX: R73.01 Impaired fasting glucose (principal); E78.00 Pure hypercholesterolemia, unspecified; I50.22 Chronic systolic (congestive) heart failure; I25.5 Ischemic cardiomyopathy; Z12.5 Encounter for screening for malignant neoplasm of prostate
CPT/HCPCS: 36415; 80053; 80061; 83036; 85025; G0103